=== PATIENT | female | born 1995 | race Caucasian/White ===

== ENCOUNTER 2022-11-13 20:02 | Outpatient (OUT) | payer BC, MEDICAID, SELFPAY ==
[2022-11-19 12:20] LABS: Age Gdln ACOG Testing Note (.); IGP, rfx Aptima HPV ASCU Note (.)
== END 2022-11-13 20:03 | disposition home or self-care (01) ==
PROVIDERS: PCP Nurse Practitioner Family; Visit Provider Obstetrics & Gynecology
DX: Z12.4 Encounter for screening for malignant neoplasm of cervix (principal); Z11.51 Encounter for screening for human papillomavirus (HPV)
CPT/HCPCS: G0145

== ENCOUNTER 2023-01-01 15:47 | Outpatient (OUT) | payer BC, MEDICAID, SELFPAY ==
[2023-01-03 04:07] LABS: Progesterone <0.1 ng/mL (.)
== END 2023-01-01 15:48 | disposition home or self-care (01) ==
LOC: LAB 15:52
PROVIDERS: PCP Nurse Practitioner Family; Visit Provider Obstetrics & Gynecology
DX: N97.0 Female infertility associated with anovulation (principal)
CPT/HCPCS: 36415; 84144

== ENCOUNTER 2023-02-17 15:10 | Outpatient (OUT) | payer BC, MEDICAID, SELFPAY ==
[2023-02-19 09:12] LABS: Progesterone 0.1 ng/mL (.)
== END 2023-02-17 15:11 | disposition home or self-care (01) ==
PROVIDERS: PCP Nurse Practitioner Family; Visit Provider Obstetrics & Gynecology
DX: N97.0 Female infertility associated with anovulation (principal)
CPT/HCPCS: 36415; 84144

== ENCOUNTER 2023-02-27 15:21 | Outpatient (OUT) | payer BC, MEDICAID, SELFPAY ==
[2023-02-27 15:47] LABS: Basophils Percent Auto 0.4 % (0.2-2.0); Eosinophils Absolute Auto 0.1 10^3/uL (0.0-0.7); Hematocrit 40.9 % (36.0-48.0); Hemoglobin 13.3 g/dL (12.0-16.0); Immature Granulocytes Abs Auto 0.01 10^3/uL (0.00-0.03); Immature Granulocytes Pct Auto 0.1 % (0.0-0.5); Lymphocytes Absolute Auto 2.1 10^3/uL (1.2-3.8); Lymphocytes Percent Auto 30.4 % (20.5-60.0); Mean Corpuscular HGB Conc 32.5 g/dL (29.9-35.2); Mean Corpuscular Hemoglobin 29.6 pg (26.7-34.0); Mean Corpuscular Volume 91.1 fL (81.0-99.0); Mean Platelet Volume 10.5 fL (9.5-13.5); Monocytes Absolute Auto 0.4 10^3/uL (0.3-0.8); Monocytes Percent Auto 5.1 % (1.7-12.0); Neutrophils Absolute Auto 4.3 10^3/uL (1.4-6.5); Platelet Count 243 10^3/uL (150-450); Red Blood Count 4.49 10^6/uL (4.20-5.40); Red Cell Distribution Width 11.9 % (11.0-15.0); White Blood Count 6.9 10^3/uL (4.0-11.0)
[2023-02-27 15:59] LABS: Estimated Average Glucose 97 mg/dL
[2023-02-27 16:25] LABS: HCG Quantitative <1 mIU/mL; Thyroid Stimulating Hormone 1.532 uIU/mL (0.358-3.740)
[2023-02-27 16:46] LABS: Free T4 1.02 ng/dL (0.76-1.46)
[2023-03-01 04:07] LABS: FSH 3.1 mIU/mL (.); Luteinizing Hormone(LH) 8.8 mIU/mL (.)
[2023-03-04 00:07] LABS: DHEA, Serum 193 ng/dL (31-701)
== END 2023-02-27 15:22 | disposition home or self-care (01) ==
LOC: LAB 15:22
PROVIDERS: PCP Nurse Practitioner Family; Visit Provider Obstetrics & Gynecology
DX: E28.2 Polycystic ovarian syndrome (principal)
CPT/HCPCS: 36415; 82626; 82627; 83001; 83002; 83036; 84439; 84443; 84702; 85025

== ENCOUNTER 2023-07-07 14:24 | Outpatient (OUT) | payer OTHER, SELFPAY ==
--- NOTE | 2023-07-07 14:27 | US_ITS ---
The [address] [address] Patient Name: GERTRUDE MANDEL MRN: [id number] date: 1995 Sex: F Assigned Patient Location: [place] Current Patient Location: [place] Accession/Order Number: [id number] Exam Date: 07/07/2023 14:45 Report Date: 07/07/2023 15:33 At the request of: RYAN PARSON Procedure: US pelvis w/ transvaginal EXAMINATION: US pelvis w/ transvaginal HISTORY: pelvic pain in female R10.2 COMPARISON: No relevant comparison available. FINDINGS: Transabdominal and transvaginal images The uterus is normal in size, contour and echotexture measuring 8.6 x 4.6 x 5.8 cm, anteverted. Endometrium measures 5 mm, normal. The right ovary is normal measuring 2.1 x 3.6 x 2.8 cm. Normal color Doppler flow. Multiple subcentimeter areas of anechoic echogenicity, follicles The left ovary measures 2.2 x 1.3 x 1.9 cm. Normal color Doppler flow No free fluid US/US pelvis w/ transvaginal IMPRESSION: No acute abnormality Electronically authenticated by: CARMEN HERZOG Date: 07/07/2023 15:33
--- OUTSIDE RECORDS SUMMARY | 2023-07-07 14:41 | XMS_ITS | CCD ---
Author Name Unknown Address [address] [place] [address] Organization [facility] Care Team Providers Care Pipe Fitter Name Role Phone JOSE HASSAN Unavailable Unavailable JOSE HASSAN Unavailable Unavailable POOJA JACKSONTLIZABETH Arroyo Unavailable Unavailable JOSE HASSAN Unavailable Unavailable MELISSA, AGAPITO Unavailable Unavailable FARCAMERON, LUTUL D Unavailable Unavailable JAMES JONES (PA-C) Unavailable Unavail able AGAPITO TORRES Unavailable Unavailable MELISSA AGAPITO Unavailable Unavailable AGAPITO TORRES Unavailable Unavailable Nick Ng Unavailable Amanda Mueller Unavailable Amanda Samuel Unavailable ROCHELLE Samuel Primary Care Provider MD Nick Ng Attending Provider ELYSE Mueller Attending Provider SHARON ., DR STALEY Admitting Unavailable SHARON ., DR STALEY Attending Unavailable REQUEST, NONE LISTED Primary Care Unavaila ble SHARON ., DR STALEY Consulting Unavailable SHARON ., DR STALEY Admitting Unavailable SHARON ., DR STALEY Attending Unavailable REQUEST, NONE LISTED Primary Care Unavaila ble SHARON ., DR STALEY Consulting Unavailable SHARON ., DR STALEY Admitting Unavailable SHARON ., DR STALEY Attending Unavailable REQUEST, NONE LISTED Primary Care Unavaila ble SHARON ., DR STALEY Consulting Unavailable SHARON ., DR STALEY Admitting Unavailable SHARON ., DR STALEY Attending Unavailable REQUEST, DR NONE LISTED Primary Care Unavaila ble SHARON ., DR STALEY Admitting Unavailable SHARON ., DR STALEY Attending Unavailable REQUEST, DR NONE LISTED Primary Care Unavaila ble SHARON ., DR STALEY Consulting Unavailable SHARON ., DR STALEY Admitting Unavailable SHARON ., DR STALEY Attending Unavailable REQUEST, DR NONE LISTED Primary Care Unavaila ble SHARON ., DR STALEY Consulting Unavailable AGUBOSIM, NIMESH Consulting Unavailable LONG, EDVIN Consulting Unavailable SHARON ., DR STALEY Admitting Unavailable SHARON ., DR STALEY Attending Unavailable REQUEST, DR NONE LISTED Primary Care Unavaila ble SHARON ., DR STALEY Consulting Unavailable SHARON ., DR STALEY Admitting Unavailable SHARON ., DR STALEY Attending Unavailable REQUEST, DR NONE LISTED Primary Care Unavaila ble SHARON ., DR STALEY Consulting Unavailable SHARON ., DR STALEY Admitting Unavailable SHARON ., DR STALEY Attending Unavailable REQUEST, DR NONE LISTED Primary Care Unavaila ble SHARON ., DR STALEY Consulting Unavailable MD Daric Chen Attending Provider [phone] ROCHELLE Samuelfer Primary Care Provider Spasic PA, Grupo Admitting Unavailabl e Spasic PA, Grupo Attending Unavailabl e [facility] Primary Care Unavailable Kashk, Anthony I Admitting Unavailable Kashk, Anthony I Attending Unavailable [facility] Primary Care Unavailable MD Darci Chen Attending Provider [phone] Darci Chen Unavailable ROCHELLE Samuel Attending Provider Darci Chen Attending [facility]available [facility] Unavailable Darci Chen Admitting Unavailable Darci Chen Attending Unavailable Jerricaacher, Amanda Primary Care Unavailable Darci Chen Admitting Unavailable Rohrbacher, Amanda Admitting Unavailable Rohrbacher, Amanda Primary Care Unavailable Rohrbacher, Amanda Attending Unavailable Rohrbacher, Amanda Primary Care Unavailable Darci Chen Admitting Unavailable Darci Chen Attending Unavailable BLANK, KALIE Attending Unavailable BLANK, KALIE Attending Unavailable BLANK, KALIE Attending Unavailable KALIE PARSON Attending Unavailable Allergies Allergy Classification Reported Allergen(s) Allergy Type Date of Onset Reaction(s) Facility (1 source) No Known Medication Allergies; Translations: [No Known Medication Allergies] Propensity to adverse reactions to drug (disorder) [facility] Repository (1 source) Unable to Assess Drug allergy (disorder) [address] [place] [address] Repository Medications Current Medications Medication Drug Class(es) Dates Sig (Normalized) Sig (Original) acetaminophen 325 mg oral tablet (12 sources) take 1 tablet by mouth every four hours Tylenol 325 MG 1 tablet as needed Orally every 4 hrs Active azithromycin 250 mg oral tablet (1 source) Macrolide Antimicrobial Start: 12-26-19 23 Azithromycin 250 MG 2 tablet on the first day, then 1 tablet daily for 4 days Orally Once a day for 5 day(s) Nov, Active benzonatate 200 mg oral capsule (1 source) Non-narcotic Antitussive Start: 12-26-19 take 1 capsule by mouth every eight hours Benzonatate 200 MG 1 capsule Orally Three times a day for 10 days Nov, Active ibuprofen 400 mg oral tablet (12 sources) Nonsteroidal Anti-inflammatory Drug take 1 tablet by mouth three times daily at mealtime as needed Ibuprofen 400 MG 1 tablet with food or milk as needed Orally Three times a day Active medroxyPROGESTERone acetate 10 mg oral tablet (1 source) Progestin medroxyPROGESTER one Acetate 10 MG Oral for 10 Days Active metFORMIN hydrochloride 500 mg oral tablet (3 sources) Biguanide take 1 tablet by mouth every twenty-four hours phentermine hydrochloride 37.5 mg oral tablet (2 sources) Sympathomimetic Amine Anorectic take 1 tablet by mouth once daily before breakfast Phentermine HCl 37.5 MG take 1 tablet by mouth every morning BEFORE BREAKFAST Oral for 30 Days Active Completed/Discontinued Medications Medication Drug Class(es) Dates Sig (Normalized) Sig (Original) aspirin 81 mg oral tablet (12 sources) Platelet Aggregation Inhibitor, Nonsteroidal Anti-inflammatory Drug take 1 tablet by mouth once daily Aspirin 81 81 MG 1 tablet Orally Once a day Not-Taking Problems Active Problems Problem Classification Problem Date Documented Date Episodic/Chronic Chronic obstructive pulmonary disease and bronchiectasis (1 source) Bronchitis, not specified as acute or chronic Episodic Coma; stupor; and brain damage (2 sources) Daytime somnolence; Translations: [Somnolence] Episodic Conditions associated with dizziness or vertigo (1 source) Dizziness and giddiness Episodic Disorders usually diagnosed in infancy, childhood, or adolescence (15 sources) Attention deficit hyperactivity disorder, predominantly inattentive type; Translations: [Other specified behavioral and emotional disorders with onset usually occurring in childhood and adolescence] Chronic Female infertility (5 sources) Female infertility associated with anovulation; Translations: [FE INFERTILITY ASSOC W/ANOVULATION] Onset: 05-08-2022 Chronic Fracture of lower limb (4 sources) Displaced fracture of medial condyle of right tibia, initial encounter for closed fracture; Translations: [Nondisplaced fracture of right tibial spine, initial encounter for closed fracture] Onset: 09-27-2021 Resolved: 12-06-2021 Episodic Headache; including migraine (2 sources) Headache; including migraine; Translations: [Headache, unspecified] Onset: 05-27-2023 Joint disorders and dislocations; trauma-related (1 source) Patellofemoral disorders, right knee; Translations: [Patellofemoral disorders, right knee] Onset: 10-25-2016 Chronic Menstrual disorders (1 source) Irregular menstruation, unspecified; Translations: [IRREGULAR MENSTRUATION UNSPECIFIED] Onset: 05-08-2022 Chronic Mood disorders (1 source) Mood disorders; Translations: [DEPRESSION UNSPECIFIED] Onset: 10-03-2021 Other endocrine disorders (5 sources) Polycystic ovarian syndrome; Translations: [POLYCYSTIC OVARIAN SYNDROME] Onset: 10-03-2021 Chronic Other female genital disorders (1 source) Unspecified dyspareunia; Translations: [UNSPECIFIED DYSPAREUNIA] Onset: 10-03-2021 Chronic Other nervous system disorders (2 sources) Other chronic pain; Translations: [Other chronic pain] Onset: 10-25-2016 Chronic Other nervous system disorders (15 sources) Chronic pain; Translations: [Other chronic pain] Chronic Other nutritional; endocrine; and metabolic disorders (15 sources) Body mass index 30+ - obesity; Translations: [Body mass index (BMI) 38.0-38.9, adult] Chronic Other nutritional; endocrine; and metabolic disorders (3 sources) Body mass index 40+ - severely obese; Translations: [Morbid (severe) obesity due to excess calories] Chronic Other nutritional; endocrine; and metabolic disorders (1 source) Body mass index (BMI) 40.0-44.9, adult Chronic Other and delivery including normal (4 sources) Encounter for test, result positive; Translations: [ENC TEST RESULT POSITIVE] Onset: 06-05-2022 Episodic Residual codes; unclassified (1 source) Daytime somnolence; Translations: [Other hypersomnia] Chronic Residual codes; unclassified (1 source) Sleep apnea; Translations: [Sleep apnea, unspecified] Chronic Residual codes; unclassified (2 sources) Sleep apnea, unspecified; Translations: [Sleep apnea, unspecified] Onset: 05-05-2023 Chronic Residual codes; unclassified (1 source) Other hypersomnia Chronic Residual codes; unclassified (1 source) Family history of epilepsy and other diseases of the nervous system Episodic Unclassified (1 source) Unknown / UNK(Unknown) Onset: 11-18-2016 Unclassified (1 source) CONTACT W/AND (SUSP) EXPOS COVID-19; Translations: [CONTACT W/AND (SUSP) EXPOS COVID-19] Onset: 09-14-2021 Past or Other Problems Problem Classification Problem Date Documented Date Episodic/Chronic Abdominal pain (5 sources) Pelvic and perineal pain; Translations: [PELVIC AND PERINEAL PAIN] Onset: 09-05-2021 Episodic Genitourinary symptoms and ill-defined conditions (1 source) Personal history of urinary (tract) infections; Translations: [PERS HX URINARY TRACT INFECTIONS] Onset: 10-03-2021 Episodic Immunizations and screening for infectious disease (1 source) Encounter for screening for human papillomavirus (HPV); Translations: [ENC SCREENING HUMAN PAPILLOMAVIRUS] Onset: 08-22-2021 Episodic Mood disorders (1 source) Emotional lability; Translations: [EMOTIONAL LABILITY] Onset: 10-03-2021 Episodic Other non-traumatic joint disorders (2 sources) Pain in right knee; Translations: [Pain in right knee] Onset: 10-25-2016 Episodic Other screening for suspected conditions (not mental disorders or infectious disease) (4 sources) Encounter for screening for malignant neoplasm of cervix; Translations: [ENC SCREENING MALIG NEOPLASM CERV] Onset: 08-20-2021 Episodic Unclassified (1 source) Intractable chronic migraine with aura and without status migrainosus G43.E19 Results Test Name Value Interpretation Reference Range Facility MR head/brain wo/w conon MR head/brain wo/w con [facility] [place] [address] MRI Report Signed Patient: Saima Yancey MR#: [id number] : 1995 Acct:[id number] Age/Sex: 28 / F ADM Date: 05/27/23 Loc: MR Room: Type: [facility] Attending Dr: Amanda Samuel APRN, [employer] ADMINISTRATOR-C Copies to: Amanda Samuel APRN, CNP Ordering Provider: Amanda Samuel APRN, CNP Date of Service: 05/27/23 MR/MR head/brain wo/w con: R51.9 MRI BRAIN WITHOUT AND WITH INTRAVENOUS CONTRAST CLINICAL DATA: Migraine headaches COMPARISON: None Multiecho, multiplanar imaging of the brain was performed before and after intravenous administration of 20 mL of ProHance. The ventricles are normal in size and position. There are no significant areas of abnormal signal intensity or enhancement within the supra or infratentorial brain. There is no restricted diffusion to suggest a recent ischemic event. No extra-axial collections or mass effect are seen. No midline abnormalities are noted. The imaged paranasal sinuses and mastoid air cells are clear. MR/MR head/brain wo/w con IMPRESSION: NO ACUTE INTRACRANIAL FINDINGS. Impression dictated by: Radha Mireles M.D.05/28/2023 8:59 AM Dictation Location: [place] [address] Transcribed By: [facility] 05/28/23 0859 Dictated By: Radha Mireles MD 05/28/23 0852 Signed By: 05/28/23 0859 [facility] Coding Summaryon 05-08-2023 Coding Summary HTMLBase 64 MhjksissGZh4mSi+PGhlYWQ+PE1FV MMwY97lhOGktJ7rC5TCECrCAiljMG QRDUuYGiIsqpQbXW3nzQYaZSSf IC8+QK1pECWwCujnwAPgs8C1pVY3U 56huy5cAMcmkLN6MWToCjLxjfdiy3 fdfZf6NHshTnkcJiXp JAChaM61BWF1jD22Kp25dJUbgXSmd 8itdGn7GsHfKCUuLAD3gPobXGsil2 VcPQAxZ84ljCVmo0P6 HWPiuKyksLDwNpIdeBH2gA4lWWxiu syll1zjsbytErz2ue02kJEud6L5dD J8W5VfmmE9AXJioQCh IsycqCMBcU5wsakjy0vskpreCkDeF PAsPJu8ZZu1CUPbrWdcOsTeLC54II M8BBCmrySwB6LoIDRe qDhmUjA8w1N8Bu4QT4BSWrhiT1MEC UFSWTwvdGQ+QI77pb02U1JxIxgyIk k4TFVhBOW8kQQ0aS1z ARKzZAslf8L0wDA6L7HaujDwia8kk 6fgRNKePZmoA14itMDxw1W0SAXzsH H5MPFdoCmsHjKrzK69 Oyc+TFVjkZufd1TxIhdaz8lwa3vpj Mx1HuelDAIgzuGifFumJDS3v0ZqIa 6cBQLvsCN0zBW1bU2j GlVeHcA4KQsdU874PzGfsCVfWhifM 00cV8TezNU+NBNnSkq9RVZcrMaxUJ 7wX2RrBPHerxdyrNSf fYskWM8iCSKkwgokZBDxvK6qSCGzB 6a4IqGaNjF6BBjdF5CoIICwcfvvAw 95dO0xOoPjAeX4IOyi J2CdmcY8HIIdhVQsYRfkUAO1L04db 1G1NODrHOZfPWN2mBN7eU5neTroft ogbGVmdDsgdmVydGlj HOenBDqyH575CNNcmTrlWwKnMEtvM yBEYXRlOiAgMDEvMTEvMjAyNDwvdG Q+JWRlIDI1gZupVFYc bWZsSXhsBp2esKelmPpsYR2nBPEae qhbIFTdeD2nGYWftHGisDkbYX1wAF Ynujhjd854ZlQcYMH6 YUFvgMJaL9LsmF8xPtSpOYUsCTOeF 4NobOSxHHhwU930DOhvEzX6RKWomq UoR7ZwYDNlmQcmVjM3 m5P8Nd3Uu5EdppdpV3OgnMBqKlTaJ coaPUg1F6IhTktsyXV+FR31PTTrFM 01EWx3LDC3kJunBZdm CRAhY7AevG9iMpCiCOYhZHTiAtb+P HRhYmxlIHdpZHRoPScxMDAlJyBzdH twUQ6aDo4zDJNsJMXk rVbpwZXoGgJkk3asNGEeFLwkDW6qv CnzP5FtlJE6YHKvf6v8Up12C85sO1 JvdXA+BVYbpNA6yHW8 wV9xUpOvEwD6ORcbW945BvRcsGDwX bxfe7vcu2kaoBz6NoY8INCdnvWoyE akDSK7f0SjEm31O78c JNsuNFXuTSSdUGKcZIGxkQesqg6pj G9wIi8+FAEvzJH3eTZ5uB4hJaPnPx O6TFuaW739TuBijLBa Aoqwf2cxo1sibYh5XdHvDRGclhAds EegPXH6n4SsXb84G5ZgmJtgp4RfEs k0gj91nWBwd5P2ySS0 I3EvEDMrssbzzWBulMcbZJ4jIRZha mlmBFOmgH9gBQWlV3g0LfWmLaA9OD mtZ5KevaS7KWXjjXUl DXRhdGAQcT9fursak9jztwtzQiWzK UVvMBk9DWt6VQAftTklUgZgFNR2Xv S4BZR8nTVasS6grAgl suvphN8xRxw+LAL7fUTmvACSTU9yJ jwvdGQ+TAAmDUI9jRjgZCsbDXBsqT 6gPXJlI3s7NjOyQfS0 MBzyR2HhbfU6NVKxiVJrMVQdcYNSs Q0mbdbnn3sukuveDnBuSMZaLEt5AS d3XOTdyNluQfDjPRP8 MyT4CXQ9hHJawE7qtFtactxqmD3pG yc+ZxzneKdzJLS5IDg8U2QiSai2GO DdmTofJZ4ucWUhBPfb Xa2ucLnzvObeMG2eCMFmqiyvi381X fIot7owIIOyqDBrNNjiENP4A58mv4 B0HESpXIPoEZP0yTX0 sW7nnUpuuupdsMYffHnqshHjzItqX HkzIIkxY712TGDmbKxwPsIyMEg9U6 MrSqi2WZNxgZhhIR3s hXFfMOgtOn1alHmhoFquJW1pCDBem eier534QuInh5lbWBAkyYCjTLhxYS D1R43pb9Z1WQPrRIHv IYM0cCE9gI2xbWlflnaqsPGogWypx rCllQuwLXtmFWphP505KPVwyYwbBm FleYk2I7CiHfv7GKOa sCteTD7vmOArWQobTf2lfJyujSepV J5pMQKowyxuj890GbIvg1daFZOdzO WvFIfbYPY9B89tw0I1 VSVlNBPpPTZ7nZL5hQ3saGnonzosk YVfxVmmvuVtlAynKJacHPnkT145FH RvcDsnPlBhdGllbnQg FPymSKb9H9JzTkrhoCM+BX69WXRbI G48yCBtbALjc5lsdUe4XyRhGLCxGF I3vNasXJzmj3QvNEGu Z11hoVDtw2C9ETRkgZrsfWFuObQkz MX1mG8eOXtxqzncn8svsrnmHigek7 xgfj97yU63F26mICfh RCCwZXMcJDGxNLDnoSwcgc3oyG3rD i8+CUGcxHT7bMG6yF0qKKPeZpG5NK lvK004BkKnnVTxRtgg v6bqg7ghsGy8JqL5PJPuceLtxBpgJ MS8q5HhFp42S71lOBtjAKBcNNVoXV OdOJMdpPczrg9szN3y Ii8+VNDhfLU1jAM1gU5eNzFdStX9G RhuD051VdTefEIvUzqpO99kZ6EcuX A+HAJyNgi9CSXrbJba VA1toYJpSPbbOl3zMHO3KzFtFiLeD DixE4BiWLMrezntbvorjOZ9YRFbDH BzhD36Co5pjVwuCRXl pWGEoM5vtdjxh8alskezMmFhOHBiX Qg7IWm9IRJwhWtfEnIcRCW3EdM6QZ L0uFFecM5jcCdfzvbb tI6sU4TiJRXlpxctHd43nF6xLjLkG oF2DRbvZwh+LHIOQIABFdbyV7vNFQ XSMPjHSy71R2ZgKcs8 CBBwrPyiGB9iaAXzPBcuUh2bgQftf FueXM9hTALxbizyPFExwD4sKXSvvM MecXbdPP7vFNUrhpij x875ZfRgNMT4VQNkcMWtS8MufH5lS xLcUDByKLVbF8UueGHyKFbzV058WD jkVmC8MIIfdxZaE6Xr OZAhxTqnDhJ4e8Y9Ap3gMy4fWf8tF Pe6WF60TS01vUFbn0Z0yBL4S1GqID PciehwgrkybNZ2PYPy JCPmfS16wYWgDVxaZd2hl5U6n458T WIqMQLvyS96Xk4wxHmtVDTddOKCcI 4mdaomn2nmomanKyZy YMGuRFk0VPe1QIGcgNpuWoDeKXO0D pH7LJW5wXJzgI9ctPguftchaB0aOz c+NlXuIYEzgaH5E9Sg Ogo2IGMxePzsOG6zuBBkEPulKc7sv QtezFtnKS5mHTZkoxotHRRzhK3bEL UkcPJjdTbeFX8zKULk zjpje776HwLyRWP0EKRxcRVpE5Bhg G2wTyDfYBSrBXWtB6RkvRWqEIbmH4 56EFzqVzN7XVTvslPu N6VzRZKcsIkxPsT0h9P2Fg2XVM1ZJ RF0W3SjZhq2RBBoqXtyZB3htPIdSJ olWc8ijUzyfEkkZL1o YGXwmqsrNKGdwY4bLVIorVTdxTlsA Z5dWLLbtidaz907DaKwXIJ1HORllV EcZ8ZacV6lZhNlFCUq KJZnS8ToiEIsMZxoX511HZciYkF9N IVyziFiB0UaWEPpoCmhRcQ1t5K8Mk 7KsVJmR5CcB2u9J2Dh PjwvdHI+WO02IYGxLH37uAWkyRJbv 7ltdLn6HhMxZJYyORM4uWayWQqje8 PbWXIoX13moRXoa0I6 RSRmmPcatEHcFvWhfZM6aG7aAQkhc hjcw6otmhjoGrmby7melk64sI90E2 9sIHdpZHRoPSIzMCUi SKWbvZfmjg6ftV9fJp8+FARzsLJ7u ZY3sJ7oIwFoIgS7GUirQ981EkWpoL TtOqjcp4llb1oebRx2 IwTpZSZtgsNfpUzdTAH0j4FaDr23R 29sIHdpZHRoPSIyMCUiIHZhbGlnbj 0bwF7dEv5+ZU7fr6fd wy98qC47cSI+TUGzYLF1wWxbXNreA AFxoL7gRWtwOwT3GBSnCgDpvC67rY XvRAjvKj6hxEucaFdr LX6wUREdzeycw160ZqAxf9mwTGJal DNlNBchWAE1W04td0R6WNCzJMZvXZ D1rMG0gU1nqSlhttgq uVTreOvrueZftFnbYUazUCrsL728Y JFehOntByTmjQBhL2suvbZZLT8xAj wvdGQ+AUMmFBK0fMhr RTijSMVylB4pTCEyQ2h4VaBuCxC1F EayX7EtzgK9BFRrsMUrYQBoeSUDeK 8qyflkd9xlbvlcIgQq ENHwBEa4EQz3CUNqxPhvOyNhJWL6W eQ1XPX2mJPfpQ8ysMhoynrjkX8fQd c+RklOOjwvdGQ+PHRk TXI1pFqcJJdnRCEpeJ6eHEScK3r3J cGhJyG2CDjcR2OswyD7FFUhmRUiUM UnzHRBfA7xsufuy3em cccgFiDgTUDaINc2YNx3BFZyaSbwC xIpQAQ4IgI6ZNH5eFZanS1zpJuvhb aekL7xYzs+TVJOOjwv dGQ+WWYdNSR3iYbcWIziHMJdkM2dD KDjD7v7DoFvXbK1SFdqY9SvavC9FQ CkqESeQWKhhKRIrQ2f idjrq3sgalcjErBnJIFwPOh2TRz4J GGzhZxtGbJlHHZ0IeM5JSS4oZTcnC 9alHeyczcdqC6kAki+ DIW6TSX2OP00OE33Z9QxIcddzYDxo +PHRhYmxlIHdpZHRoPScxMDAlJy TibDpaNW0eEd3nTOEn LWN (more content not included)... [facility] Electronic Messagingon 04-27 Electronic Messaging --- --- --- --- --- --- --- --- --- From: Nabil ([email or web address])Nabil To: SAIMA YANCEY Sent: 04/27/23 05:06:20 AM EST Subject: Discharge Summary Ready to View A summary regarding your recent visit is available in the Documents section of your Health Record. [facility] ED Clinical Summaryon [address] [facility] Emergency Department [address] [place] [id number] ED Clinical Summary PERSON INFORMATION Name: SAIMA YANCEY Age: 28 Years Sex: FEMALE : 1995 MRN: Acct#: Visit Reason: Headache; HEADACHE, NECK PAIN Arrival: 04/26/2023 07:37:50 Discharge: 04/26/2023 09:32:00 LOS: 000 01:55 Check In: 04/26/2023 07:37:50 Checkout:04/26/2023 09:32:00 Address: [address] [place] [id number] PCP: Amanda Samuel CNP PROVIDER INFORMATION Provider Role Assigned Unassigned Virgie Palafox RN ED Nurse 04/26/2023 07:39:31 Anthony Rios MD ED Provider 04/26/2023 08:50:24 VITALS INFORMATION Vital Sign Triage Latest Temperature Tympanic Temperature Temporal Artery 36.4 DegC Pulse Rate 107 bpm 107 bpm O2 Sat 99 % 99 % Respiratory Rate 18 br/min 18 br/min Blood Pressure /83 mmHg /83 mmHg MEDICAL INFORMATION Medications Given: Medication Dose Route ondansetron 4 mg IV Push dexAMETHasone 10 mg IV Push Sodium Chloride 0.9% intravenous solution 1,000 mL 1000 mL Initial Volume 999 mL/hr IV Right Mid Forearm ketorolac 30 mg IV Push diphenhydrAMINE 25 mg IV Push Allergy Information: No Known Medication Allergies PHYSICIAN DOCUMENTATION DISCHARGE INFORMATION: Discharge Disposition: Home Discharge Location: Home PATIENT EDUCATION INFORMATION Instructions: Migraine Headache Follow-Up: With: Address: When: Amanda Samuel [address] [place], [place] [id number] Business (1) Within 3 to 5 days Comments: Call for follow up appointment DIAGNOSIS: Migraine Patient Understands: Yes - Patient/family/caregiver verbalizes understanding of instructions given Comment: [facility] ED Note-Nursingon 04-26-2023 ED Note-Nursing Patient arrives with c/o headache that started around 1700 yesterday. Pain rated 6/10. Patient last took ibuprofen 2 hrs prior to arrival. States nausea and eye pressure. States she started Addipex 3 weeks ago no other medical hx. [facility] ED Patient Summaryon [address] [facility] Emergency Department [address] [place] [address] PATIENT DISCHARGE INSTRUCTIONS Patient Information Name: SAIMA YANCEY Age: 28 Years Date of : 1995 Reason For Visit: Headache; HEADACHE, NECK PAIN Arrival Time: 04/26/2023 07:37:50 Primary Care Physician: Amanda Samuel CNP Attending Physician: Anthony Rios MD Comment: Visit Diagnosis: Diagnoses This Visit Headache ([id number]) Migraine (G43.909) The Pharmacy at [facility] is open Friday through Friday from 9A to 6P and Friday and Friday from 9A to 5P Prescription Information: If you have been given a prescription for narcotics, seek immediate medical attention if you have any difficulty breathing or any sudden status changes such as confusion and sleepiness. If you or anyone you know is experiencing suicidal thoughts, mental health, alcohol and/or drug addiction problems; contact the [facility] 18/11 Crisis Hotline -Text 0LSCH cq 394149. If you received any narcotics, sedation, or any other medication that causes drowsiness for the next 24 hours, unless otherwise directed: ? Do not drive a car. ? Do not operate machinery such as power tools, lawn mowers, drills, sewing machines, or stoves ? Avoid alcoholic beverages and drugs for allergies, nerves, or sleep ? Do not make important personal or business decisions or sign any legal documents With: Address: When: Amanda Samuel [address] [place] [phone] Business (1) Within 3 to 5 days Comments: Call for follow up appointment Medication Information: The exam and treatment you received today in the [facility] Emergency Department were for an urgent problem and are not intended as complete care. It is important for you to follow up with a doctor, nurse practitioner, or physician?s assistant editor for ongoing care. If your symptoms become worse or you do not improve as expected and you are unable to reach your usual health care provider, you should return to the Emergency Department, we are available 24 hours a day. For those patients who have received Radiology results, the interpretation of your X-ray as given to you by our Emergency Department physician is only a preliminary report. The Radiologist will review your films and if there is a change in the diagnosis you will be notified by phone. Please make sure you have provided a working phone number so we can reach you if necessary. In the event that you had a lab culture while you were a patient in the Emergency Department, you will be notified by phone if there is a need to change your antibiotic. Please make sure you have provided a working phone number so we can reach you if necessary. [facility] Emergency Department has provided you with a complete list of medications post discharge. Please inform your primary class teacher/provider of your visit and for further instruction on these medications. Any specific questions regarding your chronic medications and dosages should be discussed with your primary care physician(s) and/or pharmacist. Additional medications on your home medication list not specifically addressed. Please contact the ordering physician if you have questions about these medications. phentermine (phentermine 37.5 mg oral tablet) Visit Information Allergies: Substance Reaction Symptoms Type Comments No Known Medication Allergies Drug Vital Signs: Vitals and Measurements this Visit (last charted value for your 04/26/2023 visit) Vital Signs This Visit Temperature Temporal Artery: 36.4 DegC Peripheral Pulse Rate: 107 bpm Respiratory Rate: 18 br/min Systolic Blood Pressure: 133 mmHg Diastolic Blood Pressure: 83 mmHg SpO2: 99 % Oxygen Therapy: Room air Measurements This Visit Height/Length Estimated: 175.26 cm Weight Estimated: 72.57 kg Body Mass Index Estimated: 23.63 kg/m2 Problems List: Problem Onset Comments Cough Viral illness Patient Education Migraine Headache A migraine headache is an intense, throbbing pain on one side or both sides of the head. Migraine headaches may also cause other symptoms, such as nausea, vomiting, and sensitivity to light and noise. A migraine headache can last from 4 hours to 3 days. Talk with your doctor about what things may bring on (trigger) your migraine headaches. What are the causes? The exact cause of this condition is not known. However, a migraine may be caused when nerves in the brain become irritated and release chemicals that cause inflammation of blood vessels. This inflammation causes pain. This condition may be triggered or caused by: ? Drinking alcohol. ? Smoking. ? Taking medicines, such as: ? Medicine used to treat chest pain (nitroglycerin). ? control pills. ? Estrogen. ? Certain blood pressure medicines. ? Eating or (more content not included)... Normal [facility] PROGESTERONEon 07-17-2022 Progesterone <0.1 Normal [place] [facility] Comment on above: Result Comment: Foll icular phase 0.1 - 0.9 Luteal phase 1.8 - 23.9 Ovulation phase 0.1 - 12.0 First trimester 11.0 - 44.3 Second trimester 25.4 - 83.3 Third trimester 58.7 - 214.0 Postmenopausal 0.0 - 0.1 Performed By: #### P BUDES #### [facility] [address] [place] [address] Dr. Aaron Flores PREG QUANT HCGon 07-15-2022 HCG QUANT <1 Normal [facility] Comment on above: Performed By: #### P REGQNT #### [facility] [address] [place] [address] Dr. Aaron Flores HCG RANGE SEE BELOW [facility] Comment on above: Result Comment: 5-50 0.2-1 WEEK 50-500 1-2 WEEKS 100-5,000 2-3 WEEKS 500-10,000 3-4 WEEKS 1,000-50,000 4-5 WEEKS 10,000-100,000 5-6 WEEKS 15,000-200,000 6-8 WEEKS 10,000-100,000 2-3 MONTHS Performed By: #### P REGQNT #### [facility] [address] [place] [address] Dr. Aaron Flores Coding Summaryon 06-10-2022 Coding Summary HTMLBase 64 HyvqmpwxIQe6mIq+PGhlYWQ+PE1FV XUaN64snISenJ6YG0rQKR3THRQFTW NMHE2PMT6caAX5VKnmN8YwcnCb WmmxdGDeAS23YHk5CBF2bMauGHwzb T3ogQOxJ7d2TxKoMB88xH17RYxdAJ KkLnW9YaXtjzyijNMc P8zoHzOlrUZfUax+PHRhYmxlIHdpZ PTePTneCIAdSkParXqyVI7uRp9aCM VyLWNvbGxhcHNlOiBj k0afKVRpBAvkMN0sjJuzU4AslKK0D KUyl1g4Im35cRN+DCEzCXP5iNqeJN sic006AvGdy5ssBJT1 lWDoTVvlYWN5B93jv7Q3HHOlIIToH EW4eHU0oR9cfYinomfpP8RjxGLuRa H7FJJ8rHUqvP9xdQjk ehoshC8lKpg+T34VMF6TZBASID8ZL sd5C3InVjbfoWG+XZ68ESObWL26jB ResPUcl6uokKg2UdPl XTNoNGZ4oBvuKBhku0QxPIYfO06ok MRbn9T2LSYecOgcyALnAoGdyPX5sF 4eDQhwhyjix8ceqvwl Shejk8zfev69sD89G12vSJdlHWGrK QA4MEJkOHVbqTcflu1mpM4bXa4+ID luv4muy4ortNm6LrLz FMAgqxEagDsiJRM2t4XcMn71G9Vzg Qxql6UeSja2rf47zWEiy4K0xRR0ZZ xhGOXgeY0yHUcuRfB7 VVOdVuFhfO96wMFxSCywMd3hsCciz JodNP9aHLLpdcyyINZrqE1mFLXuqQ DqqNttZW2rISTjigkb l567HwTtAUF1HWZivNAtB3QzjD8iS zIvDHXqMEEvB8OdtQFmTFxsW274CW hhDxY2SKVlsoKgQ7Ra LAQbuHqmBvU7c0C2Ck9Ge2GfvnnvZ IE5THseZRRjEtMjMpNuToQ2P4ZsGn m7DAIazEbiDT9vE8Tb PGYzmokwiddrpYB8VCCbROUutU93q KIyZLtvZb6vz1T1b087QAScGSYmjU 39Fw5frYlqODLndLQA eK9lejxrs1fmdcmjWlIcHGAnFUe0P Yl8LXDspVzbBuBzRJD4KrO6JHO3xU NtoZ7dlZutqujflL5x Oyc+E95yrC4mARQ2BOQ6kpspHXRsk fOvHO35VM75X0PkKoulwUIakWE+PG YkubPhqFnjHY4cXlBr v7tsa7IfFQnyE9XpYSZkPAqxCoq0H DXxFTJ5mXD6iT1oTUEmGEtie8R2fA K6P7OitgPfqk9zi7hu IHYsEUarD02fpWWjk7J9PPSteIH9R YRpkToaHnQhaJ87Slv+PGNvbGdyb3 VtMggjh4qpz5rlsIc0 AyUiMGPwtyXpxNcrNFR2l5KcAf38F 29sIHdpZHRoPSIxNSUiIHZhbGlnbj 1fvD4mTu0+PGNvbCB3 jZY8fY0lIRIvFxH3GTfkF770IfPfa AThMdngy5mau9zklZl0FoNqXRXogz PkvEfoSQN9o6XgVr20 G49rPLmjKQUuRWUwTWApIIMesInuo a9dvX9lYe7+NX3dk7jlau63qL01fG I+OJDtUWF3vIszLLgu IITkvW9rDMmfQfH2QVLrHvRfvJ09u GSbPSuzWe7bnSxysRzsCI8cKHHzql nfx905IeMgb2pzRPOl lXWjRVzhCRN3I19th3B9PKKxPPEbG KM9mQF8sP7kwKjuthrzbDYaoGjold DxeRphIJreTEviV863 ZNOcuVkjStTnwXncozMiUwZtTUa9F 0LxCxz8QVWmqBxaSB6qsSIcWCvhMr 9gdZdioBaiEX5tEOLn rggkl446MoQao3zjBPAwwQKxGAppM NS6X78wp5W0CEThIOHiTXQ1uZT1mO 1hbGlnbjogbGVmdDsg wuVdiIsuDOzhXIsiN674BIOqiHxpT dWhtcKiENFwgLL4FT67ZX71nNKyv0 N1sPN8E0GeCFDwlbcc kleffEE8SAFyNSEwhC84Lj5ktSukQ u8lEGYbMJF9UYLffJZhX6AlhL1jUm NbZIOpMZOjV4PexFCi RVjfX684YDerPoH0JDQaayCkP3XiN GUwaDfwRvJ3f6D1Gi3ET1Z5AI77NF 56gQSlh0T6aBE5N5Jo GXGxueydkztgjDL4ZUXcOMOccW60F g5lzQirQr3pWBRlXGX3YQXsbLYlP6 EgiW2lBxLhMFLgGUQr N8HswDByPEadN792OTlrMxY2DHEpx jXsU2UpHSWvjJvmSrI2c1D1Zi1SFV h0WV03PD63mIUdm9A2 xYD5W0VtDTKyvvrybnaaeBU9EXAoT CQttZ15Vc3ezGvqGo0fBUVfDQA7PC FknEPlN7BcwQ2kUzJj LLNwFDYvX7SazSHsMJtwM770KIykS gU3AGFjmwUwT7StQQCsxPyqGbD9g6 X4Hs4ENFUsTP88RHO6 yYB7OR18NU20B1VfDrztyQItoNR+P HRhYmxlIHdpZHRoPScxMDAlJyBzdH qwBQ0aPi4lHZVaWATo jWngmKIeOqWvt4hmMKFvWNppOH8tm KovE3WyjEJ8BQEcf7x0Nh72D03hA9 JvdXA+VBFayCW6bND2 yC7eUdSyCkD1XJnzD928LyIxqEBzY oxlz8tmd0ubhWh2FmC0ALUebdNrlU fxSPB3n0XoBe88M07i XOghAZYkWVSxKKYbCIIpaXurde4yj G9wIi8+CPWfiUS9iNU8vP4lPsJuVd L8LFqfM552AdFsiNZw Zmdbc1bar2tvbXp4BbBhKHYmmiNvc DgeIHB8w8BuIp91O1BktYjde1UrFc f7do02vSVpw6Y8iXC3 O1ArLOXeklsboXEoxLqpWF5hTHFas awzIWQahA6tCPXkN8d3DfNxLhQ9HP zbH0KteoR2NRTejCMi FSmvNUG9M77vy2X9OAYuDGCdAQI3f EH1oT7fpYpznaujpIUmtSnpjzUauL ipJDebXTxjI386FTYt uPlzTAYcmK5uTNJdlMEhsBgiBS7jR UWwtdnxHvZYY2FGKOWnGDWJZPaDMK KYRS0SKZ09IW23hSOh v6E2tBC4R8RjMYZuqbbbuvjdgCO1U ZYuTJMvpM39jSAoQWbqEu7fp2X4g0 77BOPyQBZkyA48Cb1r qVqaQZNmfDWZgK7mnzcvz4zsnvfaD kCcMXWrSZr1KHy7CZFgsYpsBpYgGY O4DfV2ZOO9cRXehL8m xOfhyupfhQ7sRjt+TOYvIQQpZGw0K zwvdGQ+WHFyVMT7ePwaLBwlMYVuxT 9jKPRlQ5b6WwYeChL1 ZSscA3OcOBOdjuvnQa14mH8nXhNmI hM2MHupZ3XlbmR1HUZfxHPsERimGZ Z8P80if2P2RCHwPIJj PNR8yAR6mY5zbLrimvzanIOfiJckf zYmiUmnNDhcZBelK061WWJnlRkuAx O6EHkfNWZnPO69KC57 aYHdi7M8gLT1J2HuDDNmumnduvafn LN3BSOzUJYpjL74bNMdKDldZp8xa2 A5j948QMEuCASvhI80 Eq8kjOxvKGHscQXSkU8fnlpka4yxa jmfYcEuSDBxRNp5ZFc3ZBPreUbhLe FqUNX0VaY2WQI0eCVo qI3iiGnxmbjaoQ9xBol+RkVNQUxFP O24TV33eFThl2P0pHN4P5OdZTJrnk lshlesjWS0ACIsGJGu zH44fKTsTYuqVv2uk1M8v848KDVdV VBfnN01Tq6khCumUUUzeLDRiW1vgk rgo1dxycxoCqNbYJLp HJu0ORn1BLQcwCxhQhXdLBS8HpT7G GX5nWKgsQ3xsNunvkqqlS2kTmk+T1 E6K2QqRtfrtSG+PC90 GDKeAM82qTNmzHWom7yxcBk3GtTxX VXsTTF7bGmlFHeyk8QvWQKaO59kcQ Lmf0Q2UKPvlIwufDGg FaKxuYX4cH3uHDmvdqzdt2glvnxaC moeu7xtat40oC76C37aCGqcYWXxIS EaRXRbQIVjySxmfv8a gD2wEp3+ASFmdYW3iKZ3kZ4dVwClE iE0XDvkM956QtOavXTpKqxnt6bwr7 umdQk8JgVfJFVodnBt oZluBOO4g8JpWv01A66fFExiGZMbD WGaRIMzPNRbmOpsnp4lqJ7aWp3+PC 8zs3fepk29zN94aQU+ EXXiXCY5yTzjHGnzTIJmpS5iIRbaU qZ5FYDrLmTmgM60iJIkNKotSa3tzO vlwFjmKL1zGGFwlamw w152YtOse2bhSYMykTBtBKsmNPB3U 03qz3Q4ZCTsHUXfQYM8fRU2qZ6deU lnbjogbGVmdDsgdmVy qTqcIRfpWYzuV473LMAwaEwrSyEsr LYpE1uxhfTPGP2dExhnyBS+PHRkIH P9kWpsXLamGSXdaI5q OVGxB8p1OtFkVuO2JRgbE7NrvvW2C LWtzFRrLQVejEXLdR0cqvjds8iajt jmGnOtHYOlEZv6XXn1 UTUgrPiqOaNzFZC1IwY6LWD9pGDbx M1ocZvbsygmcP1pImd+RklOOjwvdG Q+YNDaLIP5wYkyHEoi SPYrjG0rVCHfK8a9OhEuDcV2MNlvQ 3FjkdP2QCShdSAwWKWlkGBGyS5tnw bhr3cocjvrZkUrBCYi VHz5WSd3HDBxtVnxUiBsKRS5IjN1P NO3gGEanO4weRvzkqhqoN5tMtq+TV JOOjwvdGQ+PHRkIHN0 zPmzBBdyUKTwlD1gUFXsX9q2WuFzT cY8YOpkI2YnfkV7TPClkNZbRRVyfV QNfQ4zpnwti5meothh LyVgAOElXUc9MMp1JZBcmCzxPeDmF UH6TnA0DYB8bNLqaJ2doRbkqxinmH 9wOyc+UOI9ZDP3RY20 VV24A4CgVfwpyECbdSO+PHRhYmxlI IrmNJMcJWvkOXRlKwAtzSlfVG2qGb 9yZGVyLWNvbGxhcHNl OiB (more content not included)... Normal [facility] C Throaton 06-08-2022 C Throat Ordered by Discern. Normal throat zakiya isolated No pathogens isolated Normal [facility] Comment on above: Performed By: #### [id number] #### [facility] (DEFAULT) [address] [place] [address] ED Clinical Summaryon [address] [facility] ? Urgent Care [address] [place] [address] Clinical Summary PERSON INFORMATION Name: SAIMA YANCEY Age: 27 Years Sex: FEMALE : 1995 MRN: Acct#: Visit Reason: Throat pain; UC - Ear Problem; SORE THROAT Arrival: 06/06/2022 16:43:19 Discharge: 06/06/2022 17:26:00 LOS: 000 00:43 Check In: 06/06/2022 16:43:19 Checkout: 06/06/2022 17:26:00 Address: [address] [place] [address] PCP: Amanda Samuel CNP PROVIDER INFORMATION Provider Role Assigned Unassigned [employer] ED PA 06/06/2022 16:54:23 Samantha Mg CLERICAL RECEPTIONIST Nurse 06/06/2022 17:01:03 VITALS INFORMATION Vital Sign Triage Latest Temperature Tympanic Temperature Temporal Artery Pulse Rate O2 Sat 95 % 95 % Respiratory Rate Blood Pressure /80 mmHg /80 mmHg MEDICAL INFORMATION Medications Given: Allergy Information: No Known Medication Allergies PHYSICIAN DOCUMENTATION DISCHARGE INFORMATION: Discharge Disposition: Home Discharge Location: Home PATIENT EDUCATION INFORMATION Instructions: Sore Throat, Vysk-xc-Cdks Revised (MHASPASIC); Otitis Media, Adult, Itbq-kw-Zfoo Follow-Up: With: Address: When: Amanda Samuel [address] [place], [place] [id number] Business (1) Comments: Begin on the amoxicillin, take every 12 hours for the next 10 days Alternate tylenol and motrin for any pain or fevers Stay hydrated, drink plenty of fluids Follow-up with your primary care physician in 3-5 days for reevaluation, sooner if any worsening symptoms DIAGNOSIS: Right otitis media; Sore throat Patient Understands: Yes - Patient/family/caregiver verbalizes understanding of instructions given Comment: Normal [facility] ED Patient Summaryon [address] [facility] ? Urgent Care [address] [place] [address] PATIENT DISCHARGE INSTRUCTIONS Patient Information Name: SAIMA YANCEY Age: 27 Years Date of : 1995 Reason For Visit: Throat pain; UC - Ear Problem; SORE THROAT Arrival Time: 06/06/2022 16:43:19 Primary Care Physician: Amanda Samuel CNP Attending Physician: [employer] Mcnamara Comment: Patient Education With: Address: When: Amanda Samuel [address] [place] [address] [employer] (1) Comments: Begin on the amoxicillin, take every 12 hours for the next 10 days Alternate tylenol and motrin for any pain or fevers Stay hydrated, drink plenty of fluids Follow-up with your primary care physician in 3-5 days for reevaluation, sooner if any worsening symptoms Sore Throat When you have a sore throat, your throat may: ? Hurt. ? Burn. ? Feel irritated. ? Feel scratchy. Many things can cause a sore throat, including: ? A viral infection. ? A bacterial infection ? Allergies. ? Dryness in the air. ? Smoke or pollution. ? Gastroesophageal reflux disease (GERD). A sore throat can be the first sign of another sickness. It can happen with other problems, like coughing or a fever. Most sore throats go away without treatment. Follow these instructions at home: ? Take usik-kfs-tqdvkcf medicines only as told by your doctor. ? Drink enough fluids to keep your pee (urine) clear or pale yellow. ? Rest when you feel you need to. ? To help with pain, try: ? Sipping warm liquids, such as broth, herbal tea, or warm water. ? Eating or drinking cold or frozen liquids, such as frozen ice pops. ? Gargling with a salt-water mixture 3?4 times a day or as needed. To make a salt-water mixture, add ??1 tsp of salt in 1 cup of warm water. Mix it until you cannot see the salt anymore. ? Sucking on hard candy or throat lozenges. ? Putting a cool-mist humidifier in your bedroom at night. ? Sitting in the bathroom with the door closed for 5?10 minutes while you run hot water in the shower. ? Do not use any tobacco products, such as cigarettes, chewing tobacco, and e-cigarettes. If you need help quitting, ask your doctor. Contact a doctor if: ? You have a fever for more than 2?3 days. ? You keep having symptoms for more than 2?3 days. ? Your throat does not get better in 7 days. ? You have a fever and your symptoms suddenly get worse. Get help right away if: ? You have trouble breathing. ? You cannot swallow fluids, soft foods, or your saliva. ? You have swelling in your throat or neck that gets worse. ? You keep feeling like you are going to throw up (vomit). ? You keep throwing up. This information is not intended to replace advice given to you by your health care provider. Make sure you discuss any questions you have with your health care provider. Document Released: 01/21/2009 Document Revised: 12/08/2016 Document Reviewed: 02/02/2016 [employer] Patient Education ? 2019 [employer] Otitis Media, Adult Otitis media is a condition in which the middle ear is red and swollen (inflamed) and full of fluid. The middle ear is the part of the ear that contains bones for hearing as well as air that helps send sounds to the brain. The condition usually goes away on its own. What are the causes? This condition is caused by a blockage in the eustachian tube. This tube connects the middle ear to the back of the nose. It normally allows air into the middle ear. The blockage is caused by fluid or swelling. Problems that can cause blockage include: ? A cold or infection that affects the nose, mouth, or throat. ? Allergies. ? An irritant, such as tobacco smoke. ? Adenoids that have become large. The adenoids are soft tissue located in the back of the throat, behind the nose and the roof of the mouth. ? Growth or swelling in the upper part of the throat, just behind the nose (nasopharynx). ? Damage to the ear caused by a change in pressure. This is called barotrauma. What increases the risk? You are more likely to develop this condition if you: ? Smoke or are exposed to tobacco smoke. ? Have an opening in the roof of your mouth (cleft palate). ? Have acid reflux. ? Have problems in your body's defense system (immune system). What are the signs or symptoms? Symptoms of this condition include: ? Ear pain. ? Fever. ? Problems with hearing. ? Being tired. ? Fluid leaking from the ear. ? Ringing in the ear. How is this treated? This condition can go away on its own within 3?5 days. But if the condition is caused by germs (bacteria) and does not go away on its own, or if it keeps coming back, your doctor may: ? Give you antibiotic medicines. ? Give you medicines for pain. Follow these instructions at home: ? Take over- (more content not included)... Normal [facility] Strep Aon 06-06-2022 Strep procedure control Pass Normal [facility] Comment on above: Performed By: #### [id number] #### [facility] (DEFAULT) [address] [place] [id number] Streptococcus A Negative Normal Negative [facility] Comment on above: Performed By: #### [id number] #### [facility] (DEFAULT) [address] [place] [id number] Urgent Care Note- Provideron 06-06-2022 Urgent Care Note- Provider Patient: SAIMA YANCEY Age: 27 years Sex: FEMALE : 1995 Associated Diagnoses: Right otitis media; Sore throat Author: [employer] Mcnamara Basic Information Time seen: Date & time 06/06/2022 16:56:00. History source: Patient. History limitation: None. Additional information: Chief Complaint from Nursing Triage Note : Chief Complaint 06/06/2022 16:53 EST Chief Complaint sore thoat for a week. 06/07 now. throat is red. hursts when she swallows . History of Present Illness Patient is a 27-year-old female complaint of right ear pain and sore throat. States the pain in the throat began a week ago. Right ear for the last couple days. Denies pain in the left ear. Denies any sore throat. No other complaints or concerns. Patient with no known medication allergies. ROS Constitutional negative ENMT negative Resp negative Additional negative Physical exam General - alert no acute distress Skin - warm dry Head -normocephalic atraumatic Eye - normal conjunctiva ENMT - right TM bulging and erythematous, left TM pearly candelaria white Neck - supple Cardiovascular - regular rate regular rhythm, no murmur, normal peripheral perfusion Respiratory - lungs clear to auscultation, nonlabored respirations, breath sounds equal Lymphatics - no lymphadenopathy Medical decision making Diff OM, OE, swimmer's ear, foreign body, impaction, upper respiratory infection, tinnitus, mastoiditis, viral syndrome Physical exam findings consistent with right otitis media and sore throat. Rapid strep was negative. Patient will be treated with amoxicillin and prednisone. Follow-up with primary care provider in 3-5 days sooner if worse. Health Status Allergies: Allergic Reactions (Selected) No Known Medication Allergies. Past Medical/ Family/ Social History Medical history: Resolved Disease caused by 2019 novel coronavirus ([id number]): Onset on 05/03/2021 at 26 years. Resolved. Comments: 05/03/2021 [employer]PERATIONS 18:07 [employer] - SYSTEM Problem added by Rule (IC_COVID19_AUTO_PROBLEM) following 2019 Novel Coronavirus (CoVID-19), ROBINA LC from Nasopharyngeal Swab collected on 02-MAY-2021 13:04:00 EST tested positive for COVID-19.. Surgical history: No active procedure history items have been selected or recorded.. Family history: No family history items have been selected or recorded.. Social history: Social & Psychosocial Habits Alcohol 06/06/2022 Alcohol Use: Never Substance Abuse 06/06/2022 Substance use: Never Tobacco 06/06/2022 Smoking tobacco use: Never tobacco user Electronic Cigarette/Vaping 06/06/2022 Electronic Cigarette Use: Never . Problem list: Active Problems (2) Cough Viral illness . Physical Examination Vital Signs Vital Signs 06/06/2022 17:03 EST Systolic Blood Pressure 122 mmHg Diastolic Blood Pressure 80 mmHg 06/06/2022 16:53 EST Temperature Tympanic 36.4 DegC LOW Peripheral Pulse Rate 100 bpm Respiratory Rate 16 br/min SpO2 95 % Oxygen Therapy Room air . Measurements 06/06/2022 17:03 EST Height 172.72 cm Weight 129.18 kg Body Mass Index 43.3 kg/m2 06/06/2022 16:53 EST Height 172.72 cm Weight 129.18 kg Body Mass Index Measured 43.3 kg/m2 BSA Measured 2.49 m2 . Medical Decision Making Results review: Lab results : Lab Flowsheet 06/06/2022 16:55 EST Streptococcus A Negative . Impression and Plan Diagnosis Right otitis media (MVL55-XH H66.91, Discharge, Medical) Sore throat (QGZ77-GT J02.9, Discharge, Medical) Plan Prescriptions: Launch prescriptions Pharmacy: predniSONE 20 mg oral tablet (Prescribe): 40 mg = 2 tab(s), PO, Daily, for 5 day(s), Take with food to avoid gastric reflux or upset stomach, 10 tab(s), 0 Refill(s) amoxicillin 500 mg oral tablet (Prescribe): 500 mg = 1 tab(s), PO, BID, for 10 day(s), 20 tab(s), 0 Refill(s). Patient was given the following educational materials: Otitis Media, Adult, Pxhj-je-Fnja, Sore Throat, Uahk-gn-Zobp Revised (MHASPASIC). Follow up with: Amanda Samuel Begin on the amoxicillin, take every 12 hours for the next 10 days Alternate tylenol and motrin for any pain or fevers Stay hydrated, drink plenty of fluids Follow-up with your primary care physician in 3-5 days for reevaluation, sooner if any worsening symptoms. Counseled: Patient, Regarding diagnosis, Regarding diagnostic results, Regarding treatment plan, Regarding prescription, Patient indicated understanding of instructions. [Electronically Signed on: 06/06/2022 17:20 EST] [employer] Mcnamara [Verified on: 06/06/2022 17:20 EST] Grupo Mcnamara [address] [facility] [address] [facility] ? Urgent Care [address] [place] [address] PATIENT DISCHARGE INSTRUCTIONS Patient Information Name: SAIMA YANCEY Age: 27 Years Date of : 1995 Reason For Visit: Throat pain; UC - Ear Problem; SORE THROAT Arrival Time: 06/06/2022 16:43:19 Primary Care Physician: Amanda Samuel CNP Attending Physician: [employer] Mcnamara Comment: Visit Diagnosis: Diagnoses This Visit Right otitis media (H66.91) Sore throat (J02.9) Throat pain ([id number]) UC - Ear Problem ([id number]) If you received any narcotics, sedation, or any other medication that causes drowsiness for the next 24 hours, unless otherwise directed: ? Do not drive a car. ? Do not operate machinery such as power tools, lawn mowers, drills, sewing machines, or stoves ? Avoid alcoholic beverages and drugs for allergies, nerves, or sleep ? Do not make important personal or business decisions or sign any legal documents With: Address: When: Amanda Samuel [address] [place], [place] [phone] Business (1) Comments: Begin on the amoxicillin, take every 12 hours for the next 10 days Alternate tylenol and motrin for any pain or fevers Stay hydrated, drink plenty of fluids Follow-up with your primary care physician in 3-5 days for reevaluation, sooner if any worsening symptoms Medication Information: The exam and treatment you received today in the [facility] were for an urgent problem and are not intended as complete care. It is important for you to follow up with a doctor, nurse practitioner, or physician?s assistant editor for ongoing care. If your symptoms become worse or you do not improve as expected and you are unable to reach your usual health care provider, you should return to the Emergency Department, we are available 24 hours a day. For those patients who have received Radiology results, the interpretation of your X-ray as given to you by our Urgent Care physician is only a preliminary report. The Radiologist will review your films and if there is a change in the diagnosis you will be notified by phone. Please make sure you have provided a working phone number so we can reach you if necessary. In the event that you had a lab culture while you were a patient in the Urgent Care, you will be notified by phone if there is a need to change your antibiotic. Please make sure you have provided a working phone number so we can reach you if necessary. [facility] has provided you with a complete list of medications post discharge. Please inform your primary class teacher/provider of your visit and for further instruction on these medications. Any specific questions regarding your chronic medications and dosages should be discussed with your primary care physician(s) and/or pharmacist. New Medications [facility], [address] [place] [address] [phone], [phone] amoxicillin (amoxicillin 500 mg oral tablet) 1 tab(s) Oral 2 times a day for 10 Days. Refills: 0. predniSONE (predniSONE 20 mg oral tablet) 2 tab(s) Oral every day for 5 Days. Take with food to avoid gastric reflux or upset stomach. Refills: 0. Visit Information Allergies: Substance Reaction Symptoms Type Comments No Known Medication Allergies Drug Vital Signs: Vitals and Measurements this Visit (last charted value for your 06/06/2022 visit) Vital Signs This Visit Temperature Tympanic: 36.4 DegC Peripheral Pulse Rate: 100 bpm Respiratory Rate: 16 br/min Systolic Blood Pressure: 122 mmHg Diastolic Blood Pressure: 80 mmHg SpO2: 95 % Oxygen Therapy: Room air Measurements This Visit Height/Length Measured: 172.72 cm Weight Measured: 129.18 kg Body Mass Index: 43.3 kg/m2 Body Mass Index: 43.3 kg/m2 BSA Measured: 2.49 m2 Problems List: Problem Onset Comments Cough Viral illness Patient Education Sore Throat When you have a sore throat, your throat may: ? Hurt. ? Burn. ? Feel irritated. ? Feel scratchy. Many things can cause a sore throat, including: ? A viral infection. ? A bacterial infection ? Allergies. ? Dryness in the air. ? Smoke or pollution. ? Gastroesophageal reflux disease (GERD). A sore throat can be the first sign of another sickness. It can happen with other problems, like coughing or a fever. Most sore throats go away without treatment. Follow these instructions at home: ? Take jqjy-trc-tmytzdr medicines only as told by your doctor. ? Drink enough fluids to keep your pee (urine) clear or pale yellow. ? Rest when you feel you need to. ? To help with pain, try: ? Sipping warm liquids, such as broth, herbal tea, or warm water. ? Eating or drinking cold or frozen liquids, such as frozen ice pops. ? Gargling with a salt-water mixture 3?4 times a day or as needed. To make a salt-water (more content not included)... Normal [facility] PREG QUANT HCGon 06-05-2022 HCG QUANT <1 Normal [facility] Comment on above: Performed By: #### P REGQNT #### [facility] [address] [place] [address] Dr. Aaron Flores HCG RANGE SEE BELOW Normal [facility] Comment on above: Result Comment: 5-50 0.2-1 WEEK 50-500 1-2 WEEKS 100-5,000 2-3 WEEKS 500-10,000 3-4 WEEKS 1,000-50,000 4-5 WEEKS 10,000-100,000 5-6 WEEKS 15,000-200,000 6-8 WEEKS 10,000-100,000 2-3 MONTHS Performed By: #### P REGQNT #### [facility] [address] [place] [address] Dr. Aaron Flores PROGESTERONEon 05-08-2022 Progesterone 9.0 ng/mL Normal [facility] Comment on above: Result Comment: Foll icular phase 0.1 - 0.9 Luteal phase 1.8 - 23.9 Ovulation phase 0.1 - 12.0 First trimester 11.0 - 44.3 Second trimester 25.4 - 83.3 Third trimester 58.7 - 214.0 Postmenopausal 0.0 - 0.1 Performed By: #### P BUDES #### [facility] [address] [place] [address] Dr. Aaron Flores PREG QUANT HCGon 05-06-2022 HCG QUANT 1 mIU/mL Normal [facility] Comment on above: Performed By: #### P REGQNT #### [facility] [address] [place] [address] Dr. Aaron Flores HCG RANGE SEE BELOW Normal [facility] Comment on above: Result Comment: 5-50 0.2-1 WEEK 50-500 1-2 WEEKS 100-5,000 2-3 WEEKS 500-10,000 3-4 WEEKS 1,000-50,000 4-5 WEEKS 10,000-100,000 5-6 WEEKS 15,000-200,000 6-8 WEEKS 10,000-100,000 2-3 MONTHS Performed By: #### P REGQNT #### [facility] [address] [place] [address] Dr. Aaron Flores PROGESTERONEon 03-10-2022 Progesterone <0.1 Normal [facility] Comment on above: Result Comment: Foll icular phase 0.1 - 0.9 Luteal phase 1.8 - 23.9 Ovulation phase 0.1 - 12.0 First trimester 11.0 - 44.3 Second trimester 25.4 - 83.3 Third trimester 58.7 - 214.0 Postmenopausal 0.0 - 0.1 Performed By: #### P ROGES #### [facility] [address] [place] [address] Dr. Aaron Flores PROGESTERONEon 01-04-2022 Progesterone 0.2 ng/mL Normal [facility] Comment on above: Result Comment: Foll icular phase 0.1 - 0.9 Luteal phase 1.8 - 23.9 Ovulation phase 0.1 - 12.0 First trimester 11.0 - 44.3 Second trimester 25.4 - 83.3 Third trimester 58.7 - 214.0 Postmenopausal 0.0 - 0.1 Performed By: #### P SPRING #### [facility] [address] [address] [address] Aaron Flores CBC AUTO DIFFon 09-14-2021 BASO # 0.0 103/ul Normal 0.0-0.1 [facility] Comment on above: Performed By: #### C BC #### [facility] [address] [address] [address] Aaron Flores Basophils/100 WBC (Bld) 0.4 % Normal 0.2-2.0 [facility] Comment on above: Performed By: #### C BC #### [facility] [address] [address] [address] Aaron Flores EO # 0.1 103/ul Normal 0.0-0.7 [facility] Comment on above: Performed By: #### C BC #### [facility] [address] [place] [address] Dr. Aaron Flores Eosinophils/100 WBC (Bld) 1.1 % Normal 0.9-7.0 [facility] Comment on above: Performed By: #### C BC #### [facility] [address] [address] [address] Aaron Flores Erythrocyte distribution width (RBC) [Ratio] 11.9 % Normal 11.0-15.0 [facility] Comment on above: Performed By: #### C BC #### [facility] [address] [place] [address] Dr. Aaron Flores Hematocrit (Bld) [Volume fraction] 46.0 % Normal 36.0-48.0 [facility] Comment on above: Performed By: #### C BC #### [facility] [address] [address] [address] Aaron Flores Hemoglobin (Bld) [Mass/Vol] 15.1 g/dL Normal 12.0-16.0 [facility] Comment on above: Performed By: #### C BC #### [facility] [address] [address] [address] Aaron Flores IG # 0.00 10e3/ul Normal 0.00-0.03 [facility] Comment on above: Performed By: #### C BC #### [facility] [address] [place] [address] Dr. Aaron Flores IG % 0.0 % Normal 0.0-0.5 [facility] Comment on above: Performed By: #### C BC #### [facility] [address] [place] [address] Dr. Aaron Flores LYMPH # 1.7 103/ul Normal 1.2-3.8 [facility] Comment on above: Performed By: #### C BC #### [facility] [address] [place] [address] Dr. Aaron Flores Lymphocytes/100 WBC (Bld) 31.9 % Normal 20.5-60.0 [facility] Comment on above: Performed By: #### C BC #### [facility] [address] [place] [address] Dr. Aaron Flores MANUAL DIFF REQ NO Normal [facility] Comment on above: Performed By: #### C BC #### [facility] [address] [place] [address] Dr. Aaron Flores MCH (RBC) [Entitic mass] 29.7 pg Normal 26.7-34.0 [facility] Comment on above: Performed By: #### C BC #### [facility] [address] [place] [address] Dr. Aaron Flores MCHC (RBC) [Mass/Vol] 32.8 g/dL Normal 29.9-35.2 [facility] Comment on above: Performed By: #### C BC #### [facility] [address] [place] [address] Dr. Aaron Flores MCV (RBC) [Entitic vol] 90.6 fL Normal 81.0-99.0 [facility] Comment on above: Performed By: #### C BC #### [facility] [address] [place] [address] Dr. Aaron Flores MONO # 0.3 103/ul Normal 0.3-0.8 [facility] Comment on above: Performed By: #### C BC #### [facility] [address] [place] [address] Dr. Aaron Flores Monocytes/100 WBC (Bld) 5.4 % Normal 1.7-12.0 [facility] Comment on above: Performed By: #### C BC #### [facility] [address] [place] [address] Dr. Aaron Flores NEUT # 3.3 103/ul Normal 1.4-6.5 [facility] Comment on above: Performed By: #### C BC #### [facility] [address] [place] [address] Dr. Aaron Flores Neutrophils/100 WBC (Bld) 61.2 % Normal 43.0-75.0 [facility] Comment on above: Performed By: #### C BC #### [facility] [address] [place] [address] Dr. Aaron Flores Platelet mean volume (Bld) [Entitic vol] 11.9 fL Normal 9.5-13.5 [facility] Comment on above: Performed By: #### C BC #### [facility] [address] [place] [address] Dr. Aaron Flores PLT 182 103/ul Normal 150-450 [facility] Comment on above: Performed By: #### C BC #### [facility] [address] [place] [address] Dr. Aaron Flores RBC 5.08 106/ul Normal 4.20-5.40 [facility] Comment on above: Performed By: #### C BC #### [facility] [address] [place] [address] Dr. Aaron Flores WBC 5.4 103/ul Normal 4.0-11.0 [facility] Comment on above: Performed By: #### C BC #### [facility] [address] [place] [address] Dr. Aaron Flores PREG QUANT HCGon 09-14-2021 HCG QUANT 1 mIU/mL Normal [facility] Comment on above: Performed By: #### P REGQNT #### [facility] [address] [place] [address] Dr. Aaron Flores HCG RANGE SEE BELOW Normal [facility] Comment on above: Result Comment: 5-50 0-1 WEEK 40-300 1-2 WEEKS 100-1,000 2-3 WEEKS 500-6,000 3-4 WEEKS 5,000-200,000 1-2 MONTHS 10,000-100,000 2-3 MONTHS 3,000-50,000 2ND TRIMESTER 1,000-50,000 3RD TRIMESTER Performed By: #### P REGQNT #### [facility] [address] [address] [address] Aaron Flores [facility]26 SARS-CoV-2 (COVID-19) RNA ROBINA+probe Ql (Unsp spec) Not detected Normal NOT DETECTED [facility] Comment on above: Result Comment: This test is not yet approved or cleared by the [place] FDA. When there are no FDA-approved or cleared tests available, and other criteria are met, FDA can make tests available under an emergency access mechanism called an Emergency Use Authorization (EUA). The EUA for this test is supported by the Instrument Mechanic of Health and Human Service's (HHS's) declaration that circumstances exist to justify the emergency use of in vitro diagnostics for the detection and/or diagnosis of the virus that causes COVID-19. This EUA will remain in effect (meaning this test can be used) for the duration of the COVID-19 declaration justifying emergency of IVDs, unless it is terminated or revoked by FDA (after which the test may no longer be used). When diagnostic testing is negative, the possibility of a false negative should be considered in the context of a patient's recent exposures and the presence of clinical signs and symptoms consistent with SARS-CoV-2. Performed By: #### P SPRING #### [facility] [address] [address] [address] Aaron Flores PAP ACOG PANEL 2: 21 to 29on 08-27-2021 . . Normal [facility] Comment on above: Performed By: #### P SPRING #### [facility] [address] [address] [address] Aaron Flores Age Gdln ACOG Testing 21-29 Normal [facility] Comment on above: Performed By: #### P ROGES #### [facility] [address] [address] [address] Aaron Flores DIAGNOSIS: Comment Normal [facility] Comment on above: Result Comment: NEGA TIVE FOR INTRAEPITHELIAL LESION OR MALIGNANCY. Performed By: #### P ROGES #### [facility] [address] [address] [address] Aaron Flores Methodology: Comment Normal [facility] Comment on above: Result Comment: This liquid based ThinPrep(R) pap test was screened with the use of an image guided system. Performed By: #### P ROGES #### [facility] [address] [place] [address] Dr. Aaron Flores Note: Comment Normal [facility] Comment on above: Result Comment: The Pap smear is a screening test designed to aid in the detection of premalignant and malignant conditions of the uterine cervix. It is not a diagnostic procedure and should not be used as the sole means of detecting cervical cancer. Both false-positive and false-negative reports do occur. . Performed By: #### P ROGES #### [facility] [address] [address] [address] Aaron Flores Performed by: Comment Normal [facility] Comment on above: Result Comment: Larissa Lopez, Supervisory Baseball Glove Stuffer (ASCP) Performed By: #### P ROGES #### [facility] [address] [place] [address] Dr. Aaron Flores Reflex Criteria: Comment Normal [facility] Comment on above: Result Comment: The HPV DNA reflex criteria were not met with this specimen result therefore, no HPV testing was performed. . Performed By: #### P ROGES #### [facility] [address] [address] [address] Aaron Flores Specimen adequacy: Comment Normal [facility] Comment on above: Result Comment: Sati sfactory for evaluation. Endocervical and/or squamous metaplastic cells (endocervical component) are present. Performed By: #### P ROGES #### [facility] [address] [place] [address] Dr. Aaron Mcfarland 04-11-2017 FELICITAS Office Visit (EXPNOL) -SAIMA YANCEY ([id number]) 1995 [facility] Time Provider Fhadhrmwyw63/15/17 7:00 PM JAZMIN NIEVES) EXPNOL During your visit today, we recorded the following information about you: Temperature Pulse Blood pressure Weight 98.2 degrees 98/minute 122/67 104.3 kgSalomóncamila PHILLIP Nieves 04/11/2017 7:35 PM SignedHPI Comments: [facility]- ANDquot; mouth issue ANDquot;HPI- Saima Naye is a 22 year old female who presents to the express carewith concerns of R lower gum pain for the past 4-5 days. Feels like a sharppain. No worsening pain with chewing. Salty foods make it worse. Tried coolliquids and ice without improvement. Does not recall any gum injury whileeating. Also took ibuprofen for discomfort.In the last 6-8 months she had dental work with filling 18 cavities and hadANDquot;deep cleaningANDquot; for gingivitisThe history is provided by the patient. No test technician was used.Review of SystemsConstitutional: Negative for fever.HENT: Negative for congestion.Respiratory: Negative for cough.Blood pressure 122/67, pulse 98, temperature 36.8 ?C (98.2 ?F), temperaturesource Oral, weight 104.3 kg (230 lb), last menstrual period 04/21/2016, notcurrently .Physical ExamConstitutional: She is oriented to person, place, and time and well-developed,well-nourished , and in no distress.HENT:Head: Normocephalic and atraumatic.Mouth/Throat: Uvula is midline, oropharynx is clear and moist and mucousmembranes are normal. Oral lesions (aphthous ulcer noted at R lower gum line)present. No dental abscesses or lacerations.Pulmonary/Chest: Effort normal.Neurological: She is alert and oriented to person, place, and time. Gaitnormal.Skin: Skin is warm and dry.Psychiatric: Mood, memory, affect and judgment normal.Nursing note and vitals reviewed.ASSESSMENT/PLAN:1. Oral aphthous ulcer - ICD9: 528.2, ICD10: K12.0- no dental abscess on examCombine equal parts Maalox and Benadryl liquid in tablespoon, swish and spit 4times daily- BENZOCAINE 20 % MUCOSAL PASTE - apply to the affected area 4 times dailyThis may last 7-10 days on average and can re-occurAlso advised to avoid acidic or salty foods until ulcer resolveISIDRO Hi-Sony Nieves PA-C 04/11/2017 7:31 PM SignedASSESSMENT/PLAN:1. Oral aphthous ulcer - ICD9: 528.2, ICD10: K12.0Combine equal parts Maalox and Benadryl liquid in tablespoon, swish and spit 4times daily- BENZOCAINE 20 % MUCOSAL PASTE - apply to the affected area 4 times dailyThis may last 7-10 days on average and can re-occurISIDRO Brito-CReferring Provider: SELF [[id number]]Allergies As of Date: 04/11/2017(No Known Allergies)Date Reviewed: 04/11/2017Reviewed by: Evelin Vallejo MA - Fully AssessedReason for Visit: Mouth/Lip Problem [68] Cmt: pain right side of mouth/gum area x fridayPrimary Visit Diagnosis:Oral aphthous ulcer [K12.0]Order(s):benzocaine (ORABASE, BENZOCAINE,) 20 % pste mucosal pasteApply pea sized amount to affected area 4 times daily as needed for painDisp: 11.9 gRfl: 0Prescriptions as of 04/11/2017 Sig: BENZOCAINE 20 % MUCOSAL PASTE Apply pea sized amount to aff* TOBRAMYCIN 0.3 % EYE DROPS Use 1-2 Drops in the right ey* XULANE 150 MCG-35 MCG/24 HR T* Apply 150 mcg as directed onc* TRAMADOL 50 MG TABLET Take 1 tablet by mouth every *Problem List As Of Date 04/11/2017 Noted Resolved Patellofemoral stress syndrome of right knee [M*INVALID FOR* Confirm cardiac activity using ultrasound*INVALID FOR* Missed [O02.1] INVALID FOR* NO SHOW INVALID FOR* Decreased ROM of lower extremity [M25.669] INVALID FOR* Muscle weakness [M62.81] INVALID FOR* Right knee pain [M25.561] INVALID FOR* Other instructions from your clinician: ASSESSMENT/PLAN: 1. Oral aphthous ulcer - ICD9: 528.2, ICD10: K12.0 Combine equal parts Maalox and Benadryl liquid in tablespoon, swish and spit 4 times daily - BENZOCAINE 20 % MUCOSAL PASTE - apply to the affected area 4 times daily This may last 7-10 days on average and can re-occur ISIDRO Brito-CPrescriptions ordered this encounter Disp Refills Start End BENZOCAINE 20 % MUCOSAL PASTE 11.9* 0 04/11/2017 Sig: Apply pea sized amount to affected area 4 times daily as needed for painLevel of Service: EST PATIENT VISIT LEVEL 3 [[id number]]Disposition: Return if symptoms worsen or fail to improve.Follow-up and Disposition History RecordedEncounter Number: [id number] Status:Closed by JAZMIN NIEVES PA-C on 04/11/17 [facility] PROGRESSon 04-11-2017 PROGRESS HNO ID: [id number] thor: Jazmin Rosa) Sevenervice: (none)Author Type: Physician AssistantType: Progress NotesFiled: 04/11/2017 7:35 PMNote Text:HPI Comments: [facility] Visit[facility]- mouth issue HPI- Saima Yancey is a 22 year old female who presents to the [facility] with concerns of R lower gum pain for the past 4-5 days. Feels like asharp pain. No worsening pain with chewing. Salty foods make it worse.Tried cool liquids and ice without improvement. Does not recall any guminjury while eating. Also took ibuprofen for discomfort.In the last 6-8 months she had dental work with filling 18 cavities andhad deep cleaning for gingivitisThe history is provided by the patient. No test technician was used.Review of SystemsConstitutional: Negative for fever.HENT: Negative for congestion.Respiratory: Negative for cough.Blood pressure 122/67, pulse 98, temperature 36.8 ?C (98.2 ?F),temperature source Oral, weight 104.3 kg (230 lb), last menstrual wpkfoe1904/21/2016, not currently .Physical ExamConstitutional: She is oriented to person, place, and time andwell-developed, well-nourished, and in no distress.HENT:Head: Normocephalic and atraumatic.Mouth/Throat: Uvula is midline, oropharynx is clear and moist and mucousmembranes are normal. Oral lesions (aphthous ulcer noted at R lower gumline) present. No dental abscesses or lacerations.Pulmonary/Chest: Effort normal.Neurological: She is alert and oriented to person, place, and time. Gaitnormal.Skin: Skin is warm and dry.Psychiatric: Mood, memory, affect and judgment normal.Nursing note and vitals reviewed.ASSESSMENT/PLAN:1. Oral aphthous ulcer - ICD9: 528.2, ICD10: K12.0- no dental abscess on examCombine equal parts Maalox and Benadryl liquid in tablespoon, swish andspit 4 times daily- BENZOCAINE 20 % MUCOSAL PASTE - apply to the affected area 4 timesdailyThis may last 7-10 days on average and can re-occurAlso advised to avoid acidic or salty foods until ulcer resolveArmida Nieves PA-C Normal [facility] CNOVon 03-29-2017 CNOV Office Visit (EXPNOL) -SAIMA YANCEY ([id number]) 1995 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 Pt states she woke up this AM with crusting to right eye; c/oredness, itching, and watering that started this AM. Denies changes in vision,foreign body sensation, trauma to eye, photophobia, or pain.Review of SystemsConstitutional: Negative.HENT: Negative.Eyes: Positive for discharge and redness. Negative for blurred vision, doublevision, photophobia and pain.Respiratory: Negative.Cardiovascular: Negative.Musculoskeletal: Negative.Skin: Negative.All other systems reviewed and are negative.Physical ExamConstitutional: She is oriented to person, place, and time and well-developed,well-nourished , and in no distress. Vital signs are normal.HENT:Head: Normocephalic and atraumatic.Right Ear: Hearing, tympanic membrane, external ear and ear canal normal.Left Ear: Hearing, tympanic membrane, external ear and ear canal normal.Nose: Nose normal.Mouth/Throat: Uvula is midline, oropharynx is clear and moist and mucousmembranes are normal.Eyes: EOM are normal. Pupils are equal, round, and reactive to light. Right eyeexhibits discharge. Right conjunctiva is injected. Right conjunctiva has nohemorrhage. Left conjunctiva is not injected. Left conjunctiva has nohemorrhage.+crusting to right upper eyelashesOS: 20/30OD: 20/30OU: 20/20Neck: Normal range of motion. Neck supple.Cardiovascular: Normal rate, regular rhythm and normal heart sounds.Pulmonary/Chest: Effort normal and breath sounds normal.Musculoskeletal: Normal range of motion.Lymphadenopathy: She has no cervical adenopathy.Neurological: She is alert and oriented to person, place, and time. Gaitnormal.Skin: Skin is warm and dry.Psychiatric: Mood and affect normal.Nursing note and vitals reviewed.ASSESSMENT/PLAN:1. Acute bacterial conjunctivitis of right eye - ICD9: 372.03, ICD10: H10.31(primary diagnosis)Bacterial- See medication orders- Course and contagiousness issues discussed, including hand washing.- Warm compresses to eye- No eye make up during course of treatment- Use moisturizing eye drops- Instructed to call if high fever, development of periorbital redness orswelling, eye pain, visual changes, concerns or if symptoms persist.- TOBRAMYCIN 0.3 % EYE DROPS2. Irregular menses - ICD9: 626.4, ICD10: N92.6- test negative- Follow up with [facility]/PCP if irregular menses continues- HCG QUAL UR B/Maya Ridley, Yevgeniy Ridley, STEPHON, MOLD CUTTING MACHINE OPERATOR 03/29/2017 9:09 AM SignedEXPRESS CARE PATIENT INFOCONJUNCTIVITIS OVERVIEWConjunctivitis, also called ANDquot;pinkeyeANDquot;, is defined as an inflammationof the conjunctiva. The conjunctiva is the thin membrane that lines the innersurface of the eyelids and the whites of the eyes (called the sclera).Conjunctivitis can affect children and adults. The most common symptoms ofconjunctivitis include a red eye and discharge.There are many potential causes of conjunctivitis, including bacterial or viralinfections, allergies, or a non-specific condition (eg, a foreign body in theeye). All types of conjunctivitis cause a red eye, although not everyone with ared eye has conjunctivitis.TYPES OF CONJUNCTIVITISThere are four main types of conjunctivitis: bacterial, viral, allergic, andnon-specific. Most cases of infectious conjunctivitis are viral in adults andchildren; however, bacterial conjunctivitis is more common in children than inadults.Viral conjunctivitis ? Viral conjunctivitis is typically caused by a virus thatcan also cause the common cold. A person may have symptoms of conjunctivitisalone, or as part of a general cold syndrome, with swollen lymph nodes(glands), fever, a sore throat, and runny nose.Viral conjunctivitis is highly contagious. It is spread by contact, usuallywith objects which have come into contact with the infected person's eyesecretions. As examples, the virus can be transmitted when an infected persontouches their eye and then touches another surface (eg, door handle) or sharesan object that has touched their eye (eg, a towel or pillow case).The most common symptoms of viral conjunctivitis include redness, watery ormucus discharge, and a burning, marcia, or gritty feeling in one eye. Somepeople have morning crusting followed by watery discharge, perhaps with somescant mucus discharge throughout the day. The second eye usually becomesinfected within 24 to 48 hours.There is no cure for viral conjunctivitis. Recovery can begin within days,although the symptoms frequently get worse for the first three to five days,with gradual improvement over the following one to two weeks for a total courseof two to three weeks. Some people experience morning crusting that continuesfor up to two weeks after the initial symptoms, although the daytime redness,irritation, and tearing should be much improved.Bacterial conjunctivitis ? Bacterial conjunctivitis is highly contagious, oftenaffecting multiple family members or children within a classroom. Bacterialconjunctivitis is spread by contact, usually with objects which have come intocontact with the infected person's eye secretions. As examples, the virus canbe transmitted when an infected person touches their eye and then touchesanother surface (eg, door handle) or shares an object that has touched theireye (eg, a towel or pillow case).The most common symptoms of bacterial conjunctivitis include redness and thickdischarge from one eye, although both eyes can become infected. The dischargemay be yellow, white, or green, and it usually continues to drain throughoutthe day. The affected eye often is ANDquot;stuck shutANDquot; in the morning.Most types of bacterial conjunctivitis resolve quickly and cause no permanentdamage when treated with antibiotic eye drops or ointmentNon-specific conjunctivitis ? It is possible to develop a red eye and dischargethat is not caused by an infection or allergy. The most common causes includeone of the following.? People with a dry eye may have chronic or intermittent redness or discharge.A person whose eyes are irrigated after a chemical splash may have redness anddischarge.? A person with a foreign body (eg, dust, eyelash) in the eye may have rednessand discharge for 12 to 24 hours after the object is removed.All of these problems generally improve spontaneously within 24 hours.CONJUNCTIVITIS TREATMENTThe treatment of conjunctivitis depends upon the cause. For this reason, it isimportant to have the correct diagnosis before treatment begins.Viral conjunctivitis treatment ? A topical antihistamine/decongestant eye dropmay help to relieve the itching and irritation of viral conjunctivitis. Thesedrops are available without a prescription in most pharmacies. However,particular care must be taken to avoid spreading viral infections from one eyeto the other ? apply drops only to affected eye and wash hands thoroughly afterapplication. Similar to cold medicines, this treatment may reduce the symptomsbut does not shorten the course of the infection. Another option is to use warmor cool compresses, as needed.The irritation and discharge may get worse for three to five days beforegetting better, and symptoms can persist for two to three weeks.Bacterial conjunctivitis treatment ? Bacterial conjunctivitis is usuallytreated with an antibiotic eye drop or ointment. When started early, treatmenthelps to shorten the duration of symptoms, although most cases do resolvespontaneously if no treatment is used.Adults ? Adults are usually treated with an antibiotic eye drop or ointment forfive to seven days. Redness, irritation, and eye discharge should begin toimprove within 24 to 48 hours. If there is no improvement or if the conditionworsens within this time, the person should be evaluated by an landscaping and groundskeeping laborer.Contact lens wearers ? People who wear contact lenses should be evaluated by [facility] provider before treatment begins; this is to confirm the diagnosisof conjunctivitis and to be sure that another, more serious condition relatedto contact lens use (an infection of the cornea), is not present.People who wear contact lenses should avoid wearing the lenses during the first24 hours of treatment, or until the eye is no longer red. The contact caseshould be thrown away and the contacts disinfected overnight or replaced (ifdisposable).Return to work/school ? The safest approach to avoid spreading viral andbacterial conjunctivitis to others is to stay home until there is no longer anydischarge from the eye(s). However, this is not practical for most students andfor those who work outside the home. Most daycare centers and schools requirethat students receive 24 hours of eye drops or ointment before returning [facility]. This treatment helps to prevent the spread of bacterial conjunctivitis,but is not necessary or helpful for children with viral conjunctivitis.Viral conjunctivitis is similar to a cold because it spreads easily betweenpeople. Younger children, who may not remember to wash their hands or avoidtouching their eyes, should probably not attend school until the discharge hasresolved. Older students or adults may choose to attend school/work, althoughthey should limit close contact with others.In addition, adults who have contact with the very old, the very young, andpeople with a weakened immune system should limit contact with thesesusceptible individuals.Non-specific conjunctivitis treatment ? The conjunctiva heals quickly after itis injured, and non-specific conjunctivitis usually resolves within a few dayswithout any treatment. However, the eye may feel better faster when it istreated with a lubricant, such as drops or ointments. These products areavailable without a prescription in most pharmacies. Preservative-freepreparations are more expensive and are necessary only for people with a severecase of dry eye and those who are allergic to preservatives.Lubricant drops can be used as often as hourly with no side effects. Theointment provides longer lasting relief but blurs vision temporarily. For thisreason, some people use ointment only at bedtime. It may be worthwhile toswitch brands if one brand of drop or ointment is irritating, since eachpreparation contains different active and inactive ingredients andpreservatives.Antibiotic or steroid eye drops/ointments are not recommended unless there is aspecific reason they are needed (eg, a bacterial infection or inflammatorycondition). Using these treatments when they are not needed can lead to seriouscomplications. If the symptoms of conjunctivitis do not improve within twoweeks, an examination with an landscaping and groundskeeping laborer may be recommended.CONJUNCTIVITIS PREVENTIONBacterial and viral conjunctivitis are both highly contagious and spread bydirect contact with secretions or contact with contaminated objects. Simplehygiene measures can help minimize transmission to others.? Adults or children with bacterial or viral conjunctivitis should not sharehandkerchiefs, tissues, towels, cosmetics, or bed sheets/pillows withuninfected family or friends.? Hand washing is an essential and highly effective way to prevent the spreadof infection. Hands should be wet with water and plain soap, and rubbedtogether for 15 to 30 seconds. It is not necessary to use antibacterial handsoap. Teach children to wash their hands before and after eating and aftertouching the eyes, coughing, or sneezing.? Alcohol-based hand rubs are a good alternative for disinfecting hands if asink is not available. Hand rubs should be spread over the entire surface ofhands, fingers, and wrists until dry, and may be used several times. These rubscan be used repeatedly without skin irritation or loss of effectiveness.Referring Provider: SELF [[id number]]Allergies As of Date: 03/29/2017(No Known Allergies)Date Reviewed: 03/29/2017Reviewed by: Amina Reyna Ma - Fully AssessedReason for Visit: Eye Problem [43] Cmt: Red sclera with drainage x 6 hrs.Primary Visit Diagnosis:Acute bacterial conjunctivitis of right eye [H10.31] Other Visit Diagnosis:Irregular menses [N92.6]Order(s):[facility] [place] QUAL B/O [[id number]] Order #: [id number] tobramycin (TOBREX) 0.3 % ophthalmic solutionUse 1-2 Drops in the right eye every 6 hours.Disp: 1 BottleRfl: 0Prescriptions as of 03/29/2017 Sig: TRAMADOL 50 MG TABLET Take 1 tablet by mouth every * TOBRAMYCIN 0.3 % EYE DROPS Use 1-2 Drops in the right ey* XULANE 150 MCG-35 MCG/24 HR T* Apply 150 mcg as directed onc*Medication notes this encounter XULANE 150 MCG-35 MCG/24 HR TRANSDERMAL PATCH >> Amina Reyna Ma 03/29/2017 8:51 AM >> AMINA REYNA MA Mar 29, 2017 8:51 AM Not takingProblem List As Of Date 03/29/2017 Noted Resolved Patellofemoral stress syndrome of right knee [M*INVALID FOR* Confirm cardiac activity using ultrasound*INVALID FOR* Missed [O02.1] INVALID FOR* NO SHOW INVALID FOR* Decreased ROM of lower extremity [M25.669] INVALID FOR* Muscle weakness [M62.81] INVALID FOR* Right knee pain [M25.561] INVALID FOR* Other instructions from your clinician: [facility] PATIENT INFO CONJUNCTIVITIS OVERVIEW Conjunctivitis, also called pinkeye , is defined as an inflammation of the conjunctiva. The conjunctiva is the thin membrane that lines the inner surface of the eyelids and the whites of the eyes (called the sclera). Conjunctivitis can affect children and adults. The most common symptoms of conjunctivitis include a red eye and discharge. There are many potential causes of conjunctivitis, including bacterial or viral infections, allergies, or a non-specific condition (eg, a foreign body in the eye). All types of conjunctivitis cause a red eye, although not everyone with a red eye has conjunctivitis. TYPES OF CONJUNCTIVITIS There are four main types of conjunctivitis: bacterial, viral, allergic, and non-specific. Most cases of infectious conjunctivitis are viral in adults and children; however, bacterial conjunctivitis is more common in children than in adults. Viral conjunctivitis ? Viral conjunctivitis is typically caused by a virus that can also cause the common cold. A person may have symptoms of conjunctivitis alone, or as part of a general cold syndrome, with swollen lymph nodes (glands), fever, a sore throat, and runny nose. Viral conjunctivitis is highly contagious. It is spread by contact, usually with objects which have come into contact with the infected person's eye secretions. As examples, the virus can be transmitted when an infected person touches their eye and then touches another surface (eg, door handle) or shares an object that has touched their eye (eg, a towel or pillow case). The most common symptoms of viral conjunctivitis include redness, watery or mucus discharge, and a burning, marcia, or gritty feeling in one eye. Some people have morning crusting followed by watery discharge, perhaps with some scant mucus discharge throughout the day. The second eye usually becomes infected within 24 to 48 hours. There is no cure for viral conjunctivitis. Recovery can begin within days, although the symptoms frequently get worse for the first three to five days, with gradual improvement over the following one to two weeks for a total course of two to three weeks. Some people experience morning crusting that continues for up to two weeks after the initial symptoms, although the daytime redness, irritation, and tearing should be much improved. Bacterial conjunctivitis ? Bacterial conjunctivitis is highly contagious, often affecting multiple family members or children within a classroom. Bacterial conjunctivitis is spread by contact, usually with objects which have come into contact with the infected person's eye secretions. As examples, the virus can be transmitted when an infected person touches their eye and then touches another surface (eg, door handle) or shares an object that has touched their eye (eg, a towel or pillow case). The most common symptoms of bacterial conjunctivitis include redness and thick discharge from one eye, although both eyes can become infected. The discharge may be yellow, white, or green, and it usually continues to drain throughout the day. The affected eye often is stuck shut in the morning. Most types of bacterial conjunctivitis resolve quickly and cause no permanent damage when treated with antibiotic eye drops or ointment Non-specific conjunctivitis ? It is possible to develop a red eye and discharge that is not caused by an infection or allergy. The most common causes include one of the following. ? People with a dry eye may have chronic or intermittent redness or discharge. A person whose eyes are irrigated after a chemical splash may have redness and discharge. ? A person with a foreign body (eg, dust, eyelash) in the eye may have redness and discharge for 12 to 24 hours after the object is removed. All of these problems generally improve spontaneously within 24 hours. CONJUNCTIVITIS TREATMENT The treatment of conjunctivitis depends upon the cause. For this reason, it is important to have the correct diagnosis before treatment begins. Viral conjunctivitis treatment ? A topical antihistamine/decongestant eye drop may help to relieve the itching and irritation of viral conjunctivitis. These drops are available without a prescription in most pharmacies. However, particular care must be taken to avoid spreading viral infections from one eye to the other ? apply drops only to affected eye and wash hands thoroughly after application. Similar to cold medicines, this treatment may reduce the symptoms but does not shorten the course of the infection. Another option is to use warm or cool compresses, as needed. The irritation and discharge may get worse for three to five days before getting better, and symptoms can persist for two to three weeks. Bacterial conjunctivitis treatment ? Bacterial conjunctivitis is usually treated with an antibiotic eye drop or ointment. When started early, treatment helps to shorten the duration of symptoms, although most cases do resolve spontaneously if no treatment is used. Adults ? Adults are usually treated with an antibiotic eye drop or ointment for five to seven days. Redness, irritation, and eye discharge should begin to improve within 24 to 48 hours. If there is no improvement or if the condition worsens within this time, the person should be evaluated by an landscaping and groundskeeping laborer. Contact lens wearers ? People who wear contact lenses should be evaluated by a healthcare provider before treatment begins; this is to confirm the diagnosis of conjunctivitis and to be sure that another, more serious condition related to contact lens use (an infection of the cornea), is not present. People who wear contact lenses should avoid wearing the lenses during the first 24 hours of treatment, or until the eye is no longer red. The contact case should be thrown away and the contacts disinfected overnight or replaced (if disposable). Return to work/school ? The safest approach to avoid spreading viral and bacterial conjunctivitis to others is to stay home until there is no longer any discharge from the eye(s). However, this is not practical for most students and for those who work outside the home. Most daycare centers and schools require that students receive 24 hours of eye drops or ointment before returning to school. This treatment helps to prevent the spread of bacterial conjunctivitis, but is not necessary or helpful for children with viral conjunctivitis. Viral conjunctivitis is similar to a cold because it spreads easily between people. Younger children, who may not remember to wash their hands or avoid touching their eyes, should probably not attend school until the discharge has resolved. Older students or adults may choose to attend school/work, although they should limit close contact with others. In addition, adults who have contact with the very old, the very young, and people with a weakened immune system should limit contact with these susceptible individuals. Non-specific conjunctivitis treatment ? The conjunctiva heals quickly after it is injured, and non-specific conjunctivitis usually resolves within a few days without any treatment. However, the eye may feel better faster when it is treated with a lubricant, such as drops or ointments. These products are available without a prescription in most pharmacies. Preservative-free preparations are more expensive and are necessary only for people with a severe case of dry eye and those who are allergic to preservatives. Lubricant drops can be used as often as hourly with no side effects. The ointment provides longer lasting relief but blurs vision temporarily. For this reason, some people use ointment only at bedtime. It may be worthwhile to switch brands if one brand of drop or ointment is irritating, since each preparation contains different active and inactive ingredients and preservatives. Antibiotic or steroid eye drops/ointments are not recommended unless there is a specific reason they are needed (eg, a bacterial infection or inflammatory condition). Using these treatments when they are not needed can lead to serious complications. If the symptoms of conjunctivitis do not improve within two weeks, an examination with an landscaping and groundskeeping laborer may be recommended. CONJUNCTIVITIS PREVENTION Bacterial and viral conjunctivitis are both highly contagious and spread by direct contact with secretions or contact with contaminated objects. Simple hygiene measures can help minimize transmission to others. ? Adults or children with bacterial or viral conjunctivitis should not share handkerchiefs, tissues, towels, cosmetics, or bed sheets/pillows with uninfected family or friends. ? Hand washing is an essential and highly effective way to prevent the spread of infection. Hands should be wet with water and plain soap, and rubbed together for 15 to 30 seconds. It is not necessary to use antibacterial hand soap. Teach children to wash their hands before and after eating and after touching the eyes, coughing, or sneezing. ? Alcohol-based hand rubs are a good alternative for disinfecting hands if a sink is not available. Hand rubs should be spread over the entire surface of hands, fingers, and wrists until dry, and may be used several times. These rubs can be used repeatedly without skin irritation or loss of effectiveness.Prescriptions ordered this encounter Disp Refills Start End TOBRAMYCIN 0.3 % EYE DROPS 1 Ke[place]* 0 03/29/2017 Route: RIGHT EYE Sig: Use 1-2 Drops in the right eye every 6 hours.Medications Discontinued During This Encounter tobramycin (TOBREX) 0.3 % ophthalmic* 1 Keaton* 0 08/12/2016 03/29/2017 Route: LEFT EYE Sig: Use 1-2 Drops in the left eye every 4 hours for 7 days. Disc: Reason for discontinue is not on file. 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 Pt states she woke up this AM with crusting toright eye; c/o redness, itching, and watering that started this AM. Denieschanges in vision, foreign body sensation, trauma to eye, photophobia, orpain.Review of SystemsConstitutional: Negative.HENT: Negative.Eyes: Positive for discharge and redness. Negative for blurred vision,double vision, photophobia and pain.Respiratory: Negative.Cardiovascular: Negative.Musculoskeletal: Negative.Skin: Negative.All other systems reviewed and are negative.Physical ExamConstitutional: She is oriented to person, place, and time andwell-developed, well-nourished, and in no distress. Vital signs arenormal.HENT:Head: Normocephalic and atraumatic.Right Ear: Hearing, tympanic membrane, external ear and ear canal normal.Left Ear: Hearing, tympanic membrane, external ear and ear canal normal.Nose: Nose normal.Mouth/Throat: Uvula is midline, oropharynx is clear and moist and mucousmembranes are normal.Eyes: EOM are normal. Pupils are equal, round, and reactive to light.Right eye exhibits discharge. Right conjunctiva is injected. Rightconjunctiva has no hemorrhage. Left conjunctiva is not injected. Leftconjunctiva has no hemorrhage.+crusting to right upper eyelashesOS: 20/30OD: 20/30OU: 20/20Neck: Normal range of motion. Neck supple.Cardiovascular: Normal rate, regular rhythm and normal heart sounds.Pulmonary/Chest: Effort normal and breath sounds normal.Musculoskeletal: Normal range of motion.Lymphadenopathy: She has no cervical adenopathy.Neurological: She is alert and oriented to person, place, and time. Gaitnormal.Skin: Skin is warm and dry.Psychiatric: Mood and affect normal.Nursing note and vitals reviewed.ASSESSMENT/PLAN:1. Acute bacterial conjunctivitis of right eye - ICD9: 372.03, ICD10:H10.31 (primary diagnosis)Bacterial- See medication orders- Course and contagiousness issues discussed, including hand washing.- Warm compresses to eye- No eye make up during course of treatment- Use moisturizing eye drops- Instructed to call if high fever, development of periorbital redness orswelling, eye pain, visual changes, concerns or if symptoms persist.- TOBRAMYCIN 0.3 % EYE DROPS2. Irregular menses - ICD9: 626.4, ICD10: N92.6- test negative- Follow up with [facility]/PCP if irregular menses continues- HCG QUAL UR B/Maya Ridley CNP Normal [facility] CNOVon 01-14-2017 CNOV Office Visit ([facility]) -NAYESAIMA Nevarez ([id number]) 1995 FDate Time Provider Department01/14/17 9:00 AM JAMES JONES) [facility] During your visit today, we recorded the following information about you: Pulse Blood pressure 94/minute 120/77Barbara Roque Jones PA-C 01/14/2017 10:01 AM [facility]ignedF[facility] Follow Up VisitS2016 - 9:14 AMSUBJECTIVE:Saimakamron Yancey a 21 year [facility] by self only, for a follow up appointment for RightKnee pain.The pain is located in the right knee pain and does not radiate.Started 2 years ago, was not directly related to trauma, and symptoms have beenpersistent.Characterized as pulsating, radiating and throbbingPain is constantCurrently the pain is a rated at a 3 on a scale of 0-10.Worst pain score is rated at 8 on a scale of 0-10.Best pain score is rated at 0 on a scale of 0-10.Aggravated by sitting, standing, lifting, lying down, walking and driving.Mitigated by medications, ice and heat.The plan from the last visit on 11/18/16 was:PLAN:1) Recommend right knee genicular nerve block x 12) Patient advised in specific detail about potential benefits of opioids alongwith risks including, but not limited to, dependency, addiction, endocrinechanges, anxiety, depression, insomnia, respiratory depression and .Caution advised regarding the use of medication and specific mention maderegarding not to drive or operate heavy machinery if feeling side effects fromthis medication. Patient expressed an understanding about this medication andthese particular concerns.?Advised the patient that narcotics are not recommended for chronicnon-malignant pain - recommend weaning off of narcotics.3) Recommend use of heat to the area4) Recommend use of OTC Salon Pas Gel5) RTC 4 weeks after the injection?Since her last visit the patient reported no change in pain and no change infunction.Current pain medication:1.) Tramadol 50mg Q6H as neededCurrent Anticoagulant Therapy: NoRecent treatments (past 6 months):12/11/16 Right Genicular nerve block Response: 100 % pain relief 1-1/2 weekPhysical Therapy: NoPAST MEDICAL HISTORYDiagnosis Date- NEGATIVE MEDICAL HISTORYPAST SURGICAL HISTORYProcedure Laterality Date- DANDamp;C (MISSED AB 1ST TRIMESTER) 06/2016- NONECurrent Outpatient Prescriptions:XULANE 150-35 mcg/24 hr Apply 150 mcg as directed once each week. 150mcg-35mcgtraMADol (ULTRAM) 50 mg tablet Take 1 tablet by mouth every 6 hours as neededfor Pain.No current facility-administered medications for this visit.ALLERGIESNo Known AllergiesReview of Symptoms:GENERAL:No weight loss, malaise or fevers., SEE HPIGASTROINTESTINAL: Negative for abdominal discomfort, blood in stools or blackstools or change in bowel habitsGENITOURINARY: No history of dysuria, frequency or incontinenceMUSCULOSKELETAL: Positive for joint pain: bilateral knee painNEUROLOGIC:Negative for focal numbness or weakness, headaches and dizziness orsyncope.PREVIOUS TREATMENTS IN THE LAST SIX MONTHSActive conservative therapy in the last six months (see below) 1. Physical therapy:Yes 2. Home exercise program after PT: No 3. Occupational therapy: No 4. A physician supervised home exercise program (HEP): No 5. Spinning Machine Tender: NoPassive conservative therapy in the last six months (see below) 1. Medical devises: No 2. Acupuncture: No 3. Tens unit: No 4. Prescription pain medication: Tramadol 5. NSAIDS: NoDo you fell safe at home? YesRisk assessment at risk due to fall: NONEKalie [facility]ember 2016 - Time: 9:20 AMThe subjective information: including chief complaint, past medical history andreview of systems, was explored in detail with the patient and edited as neededand is complete.ISIDRO Cantu-CSeptember 2016Physical Examination:BP 120/77 Pulse 94 SpO2 97% LMP 04/21/2016General: Overweight, well appearing, alert, in no acute distressSkin: skin color, texture, turgor normal, no rashes or lesionsHEENT: normocephalic, atraumatic, sclera non-ictericCardiovascular:Reg ular rate and rhythmLungs: Respirations even and non-labored.Musculoskeletal: Extremities: Right knee - tenderness with palpation and crepitus with ROM Left knee - no tenderness with palpationNeurological: Mental Status: alert and oriented x 3 Motor Strength: Motor strength and tone are 5/5 all throughout the bilaterallower extremities Sensory: Sensation was intact to light touch all throughout the bilaterallower extremitiesOARRS website checked and validated. All prescriptions have been APPROPRIATELYfilled. No suspicious activity was identified. - January 14, 2017 by Masood Jones PA-C- Ran via [employer] web site - 2 scripts for Tramadol - last scrip filled 05/17/2015#40Current Anticoagulant Therapy: NoHPI ANDamp; ASSESSMENT: .Saima Yancey is a 21 year old female who presents for follow up of rightknee pain she is s/p Right knee genicular nerve block on 12/11/2016 whichprovided 100% pain relief for about 10 days along the lateral aspects. Shereports that she did have pain below the knee cap after the procedure. Shereports the medial knee pain has returned to baseline or worsened but thelateral aspect is still improved. Today she also reports new Left knee pain.She reports constant pain, which she describes as pulsating, radiating andthrobbing. She rates her pain at 3/10 currently and ranges from 0-8/10. Thepain is aggravated by sitting, standing, walking and driving. The pain ismitigated by medications, ice and heat. She reports she is currently takingTramadol 50 mg as needed.On exam right knee tenderness with palpation and crepitus with ROM. There iscrepitus with ROM of the left knee without tenderness to palpation.(M25.561, G89.29) Chronic pain of right knee (primary encounter diagnosis)(M25.562) Acute pain of left kneePLAN:1) Schedule a 2nd Right knee genicular nerve - inf good results for a shortperiod of time consider RFA2) Recommend follow up with orthopaedics regarding new left knee pain.3) RTC 4 weeks after procedure.The above plan and management options were discussed at length with patient.Patient is in agreement with the above and verbalized understanding.[facility]IDRO [facility] [place]Referring Provider: AGAPITO TORRES [[id number]]Allergies As of Date: 01/14/2017(No Known Allergies)Date Reviewed: 12/11/2016Reviewed by: Tamiko TitusRn) ADEN Gray - Fully AssessedReason for Visit: Right Knee Pain [1209]Primary Visit Diagnosis:Chronic pain of right knee [M25.561, G89.29] Other Visit Diagnosis:Acute pain of left knee [M25.562]Prescriptions as of 01/14/2017 Sig: XULANE 150 MCG-35 MCG/24 HR T* Apply 150 mcg as directed onc* TRAMADOL 50 MG TABLET Take 1 tablet by mouth every *Problem List As Of Date 01/14/2017 Noted Resolved Patellofemoral stress syndrome of right knee [M*INVALID FOR* Confirm cardiac activity using ultrasound*INVALID FOR* Missed [O02.1] INVALID FOR* NO SHOW INVALID FOR* Decreased ROM of lower extremity [M25.669] INVALID FOR* Muscle weakness [M62.81] INVALID FOR* Right knee pain [M25.561] INVALID FOR* Status:Closed by JAMES JONES PA-C on 01/14/17 [facility] PROGRESSon 01-14-2017 PROGRESS HNO ID: [id number] thor: James Rosa) Bennettervice: (none)Author Type: Physician AssistantType: Progress NotesFiled: 01/14/2017 10:01 AMNote Text:[facility] Follow Up VisitSept2016 - 9:14 AMSUBJECTIVE:Saima L Yancey a 21 year [facility], accompanied by self only, for a follow upappointment for Right Knee pain.The pain is located in the right knee pain and does not radiate.Started 2 years ago, was not directly related to trauma, and symptoms havebeen persistent.Characterized as pulsating, radiating and throbbingPain is constantCurrently the pain is a rated at a 3 on a scale of 0-10.Worst pain score is rated at 8 on a scale of 0-10.Best pain score is rated at 0 on a scale of 0-10.Aggravated by sitting, standing, lifting, lying down, walking and driving.Mitigated by medications, ice and heat.The plan from the last visit on 11/18/16 was:PLAN:1) Recommend right knee genicular nerve block x 12) Patient advised in specific detail about potential benefits of opioidsalong with risks including, but not limited to, dependency, addiction,endocrine changes, anxiety, depression, insomnia, respiratory depressionand . Caution advised regarding the use of medication and specificmention made regarding not to drive or operate heavy machinery if feelingside effects from this medication. Patient expressed an understandingabout this medication and these particular concerns.?Advised the patient that narcotics are not recommended for chronicnon-malignant pain - recommend weaning off of narcotics.3) Recommend use of heat to the area4) Recommend use of OTC Salon Pas Gel5) RTC 4 weeks after the injection?Since her last visit the patient reported no change in pain and no changein function.Current pain medication:1.) Tramadol 50mg Q6H as neededCurrent Anticoagulant Therapy: NoRecent treatments (past 6 months):12/11/16 Right Genicular nerve block Response: 100 % pain relief 1-1/2weekPhysical Therapy: NoPAST MEDICAL HISTORYDiagnosis Date- NEGATIVE MEDICAL HISTORYPAST SURGICAL HISTORYProcedure Laterality Date- DANDC (MISSED AB 1ST TRIMESTER) 06/2016- NONECurrent Outpatient Prescriptions:XULANE 150-35 mcg/24 hr Apply 150 mcg as directed once each week.150mcg-35mcgtraMADol (ULTRAM) 50 mg tablet Take 1 tablet by mouth every 6 hours asneeded for Pain.No current facility-administered medications for this visit.ALLERGIESNo Known AllergiesReview of Symptoms:GENERAL:No weight loss, malaise or fevers., SEE HPIGASTROINTESTINAL: Negative for abdominal discomfort, blood in stools orblack stools or change in bowel habitsGENITOURINARY: No history of dysuria, frequency or incontinenceMUSCULOSKELETAL: Positive for joint pain: bilateral knee painNEUROLOGIC:Negative for focal numbness or weakness, headaches anddizziness or syncope.PREVIOUS TREATMENTS IN THE LAST SIX MONTHSActive conservative therapy in the last six months (see below) 1. Physical therapy:Yes 2. Home exercise program after PT: No 3. Occupational therapy: No 4. A physician supervised home exercise program (HEP): No 5. Spinning Machine Tender: NoPassive conservative therapy in the last six months (see below) 1. Medical devises: No 2. Acupuncture: No 3. Tens unit: No 4. Prescription pain medication: Tramadol 5. NSAIDS: NoDo you fell safe at home? YesRisk assessment at risk due to fall: NONEKalie [facility] 2016 - Time: 9:20 AMThe subjective information: including chief complaint, past medicalhistory and review of systems, was explored in detail with the patient andedited as needed and is complete.ISIDRO Cantu[facility] [place]Physical Examination:BP 120/77 Pulse 94 SpO2 97% LMP 04/21/2016General: Overweight, well appearing, alert, in no acute distressSkin: skin color, texture, turgor normal, no rashes or lesionsHEENT: normocephalic, atraumatic, sclera non-ictericCardiovascular:Reg ular rate and rhythmLungs: Respirations even and non-labored.Musculoskeletal: Extremities: Right knee - tenderness with palpation and crepitus with ROM Left knee - no tenderness with palpationNeurological: Mental Status: alert and oriented x 3 Motor Strength: Motor strength and tone are 5/5 all throughout thebilateral lower extremities Sensory: Sensation was intact to light touch all throughout the bilaterallower extremitiesOARRS website checked and validated. All prescriptions have beenAPPROPRIATELY filled. No suspicious activity was identified. - 2016 by James Jones PA-C- Ran via [employer] web site - 2 scripts for Tramadol - last scrip filled1/ #40Current Anticoagulant Therapy: NoHPI AND ASSESSMENT: .Saima Yancey is a 21 year old female who presents for follow up ofright knee pain she is s/p Right knee genicular nerve block on 12/11/2016which provided 100% pain relief for about 10 days along the lateralaspects. She reports that she did have pain below the knee cap after theprocedure. She reports the medial knee pain has returned to baseline orworsened but the lateral aspect is still improved. Today she also reportsnew Left knee pain.She reports constant pain, which she describes as pulsating, radiating andthrobbing. She rates her pain at 3/10 currently and ranges from 0-8/10.The pain is aggravated by sitting, standing, walking and driving. The painis mitigated by medications, ice and heat. She reports she is currentlytaking Tramadol 50 mg as needed.On exam right knee tenderness with palpation and crepitus with ROM. Thereis crepitus with ROM of the left knee without tenderness to palpation.(M25.561, G89.29) Chronic pain of right knee (primary encounterdiagnosis)(M25.562) Acute pain of left kneePLAN:1) Schedule a 2nd Right knee genicular nerve - inf good results for ashort period of time consider RFA2) Recommend follow up with orthopaedics regarding new left knee pain.3) RTC 4 weeks after procedure.The above plan and management options were discussed at length withpatient. Patient is in agreement with the above and verbalizedunderstanding.ISIDRO Toledo ra-Francesptember 2016 [facility] CNDSNOTEon 12-23-2016 CNDSNOTE Discharge Note (enc) (PTFVGE) -SAIMA YANCEY ([id number]) 1995 FDate Time Provider Department12/23/16 TAMIKO SHIELDS (PT) PTFVGE During your visit today, we recorded the following information about you:Tamiko Shields, PT 12/23/2016 6:52 PM Signed[facility]ER[facility]PHYSICAL THERAPY DISCONTINUANCE OF CAREPlan of Care Period:Initial Evaluation Date: 09/09/2016Last Visit Date: 10/07/2016Therapy Program: The following is a summary of the interventions provided forthis episode of care; HEP, Individual PT, Modalities and Therapeutic exercise.Assessment:The following is the goal status:As of last session on 10/07/2016. Patient was to return to MD for furtherrecommendation and has not returned for further PT.Whiting in home exercise program. PARTIALLY METPatient will decrease pain rating by 2 points to meet minimal clinicalimportant difference for numeric pain rating scale.NOT METPatient will increase strength of right lower extremity to 4+/5 to allow forreturn to prior functional status, perform ADLs and negotiate stairs.PARTIALLY METPatient will increase flexibility of right hamstrings by 10 degrees, negativeIT band to restore normal mechanics and decrease pain. PARTIALLY METPerform squatting, stairs, standing and walkingANDgt; 3 hours with decreasedreport of symptoms/pain in 8 weeks. MET FOR SQUATTINGDemonstrate improvement on functional score: Patient will increase his/herscore on the Lower Extremity Functional Scale by at least 9 points to indicatea Minimal Clinical Important Difference. UNABLE TO ASSESSImprove postural awareness with squatting, stairs, and walking. PARTIALLY METReciprocal stair negotiation. NOT METPatient will increase balance to 30 seconds for single limb stance on rightlower extemity. MET?Based on most recent progress report, patient was progressing slower thanexpected toward functional goals based on pain levels and documented subjectiveinformation on progressReason for Discontinuation of Care: Patient has not returned to therapy orscheduled additional follow-up appointments.Alejandro Sosa As of Date: 12/23/2016(No Known Allergies)Date Reviewed: 12/11/2016Reviewed by: Tamiko (Aden) ADEN Gray - Fully AssessedReason for Visit: PT Discharge [752]Primary Visit Diagnosis:Patellofemoral stress syndrome of right knee [M22.2X1]Prescriptions as of 12/23/2016 Sig: XULANE 150 MCG-35 MCG/24 HR T* Apply 150 mcg as directed onc* TRAMADOL 50 MG TABLET Take 1 tablet by mouth every *Problem List As Of Date 12/23/2016 Noted Resolved Patellofemoral stress syndrome of right knee [M*INVALID FOR* Confirm cardiac activity using ultrasound*INVALID FOR* Missed [O02.1] INVALID FOR* NO SHOW INVALID FOR* Decreased ROM of lower extremity [M25.669] INVALID FOR* Muscle weakness [M62.81] INVALID FOR* Right knee pain [M25.561] INVALID FOR* Status:Closed by TAMIKO SHIELDS on 12/23/16 [facility] PROGRESSon 12-23-2016 PROGRESS HNO ID: [id number] thor: Tamiko (Pt) Staci: (none)Author Type: Physical TherapistType: Progress NotesFiled: 12/23/2016 6:52 PMNote Text:[facility] THERAPY DISCONTINUANCE OF CAREPlan of Care Period:Initial Evaluation Date: 09/09/2016Last Visit Date: 10/07/2016Therapy Program: The following is a summary of the interventions providedfor this episode of care; HEP, Individual PT, Modalities and Therapeuticexercise.Assessmen t:The following is the goal status:As of last session on 10/07/2016. Patient was to return to MD for furtherrecommendation and has not returned for further PT.Whiting in home exercise program. PARTIALLY METPatient will decrease pain rating by 2 points to meet minimal clinicalimportant difference for numeric pain rating scale.NOT METPatient will increase strength of right lower extremity to 4+/5 to allowfor return to prior functional status, perform ADLs and negotiate stairs.PARTIALLY METPatient will increase flexibility of right hamstrings by 10 degrees,negative IT band to restore normal mechanics and decrease pain. PARTIALLYMETPerform squatting, stairs, standing and walking> 3 hours with decreasedreport of symptoms/pain in 8 weeks. MET FOR SQUATTINGDemonstrate improvement on functional score: Patient will increase his/herscore on the Lower Extremity Functional Scale by at least 9 points toindicate a Minimal Clinical Important Difference. UNABLE TO ASSESSImprove postural awareness with squatting, stairs, and walking. PARTIALLYMETReciprocal stair negotiation. NOT METPatient will increase balance to 30 seconds for single limb stance onright lower extemity. MET?Based on most recent progress report, patient was progressing slower thanexpected toward functional goals based on pain levels and documentedsubjective information on progressReason for Discontinuation of Care: Patient has not returned to therapy orscheduled additional follow-up appointments.Tamiko Shields, PT [facility] HISTORY PHYSICALon 7 HISTORY PHYSICAL HNO ID: [id number] thor: Diego Muller) MirzaService: Pain ManagementAuthor Type: Physician AssistantType: HANDPFiled: 12/11/2016 2:16 PMNote Text:PROCEDURAL SEDATION HISTORY AND PHYSICAL EXAMSERVICE DATE: 12/11/2016SERVICE TIME: 2:13 PMSUBJECTIVEHPI: This is a 21 year old female who presents with Chronic right kneepain for 2 + years. Pt denies trauma or injury. Pain is described as aconstant 5/10 pressure at the knee joint.PAST ANESTHESIA HISTORY: No history of adverse eventPAST MEDICAL HISTORYDiagnosis Date- NEGATIVE MEDICAL HISTORYPAST SURGICAL KXJOBGE71/2017: DANDC (MISSED AB 1ST TRIMESTER)No date: NONEPrior to Admission medications as of 12/11/16 1355Medication Sig Last Dose TakingXULANE 150-35 mcg/24 hr Apply 150 mcg as directed once each week.150mcg-35mcg 11/10/2016 YestraMADol (ULTRAM) 50 mg tablet Take 1 tablet by mouth every 6 hours asneeded for Pain. 11/26/2016 YesALLERGIESNo Known AllergiesOBJECTIVEPHYSICAL EXAM: The remainder of the physical exam is noncontributory.AIRWAY: Airway Visualization of Uvula: YesMouth opening greater than 2 fingerbreadths: YesNeck Full Range of Motion: YesLUNGS: Lungs clear to auscultation, Good diaphragmatic excursionCARDIAC: Normal S1 and S2; no rubs, murmurs, or gallopsASSESSMENT/PLANASA Class: ASA Class:: Normal healthy patientActive Problems: * No active hospital problems. *Provisional Diagnosis/Treatment Plan: Chronic right knee pain / Plan:Block peripheral-right genicular NBSEDATION GOAL: ModerateSIGNATURE: Diego Blue PA-C PATIENT NAME: Saima YanceyDATE: December 11, 2016 : 2:13 PM PAGER: [facility] OPERATIVE NOon 12-11-2016 OPERATIVE NO HNO ID: [id number] thor: Agapito Bearervice: Pain ManagementAuthor Type: PhysicianType: Operative ReportFiled: 12/11/2016 3:24 PMNote Text:Patient Name Medical Record #Saima Yancey [id number] of : 1995Admit Date: December 11, 2016Sex / Age: female/21 year oldDischarge Date: December 11, 2016Date: December 11, 2016Attending Physician: GAVINO Alvarezervice: OPERATIVE REPORTLOG ID: [id number]/Procedure Date: 12/11/2016Incision/Procedure Start Time: 3:12 PMIncision Close/Procedure End Time: 3:19 PMPREOPERATIVE DIAGNOSIS: Osteoartharitis right KneePOSTOPERATIVE DIAGNOSIS: SameNAME OF OPERATION: right Genicular nerve block under fluoroscopicguidance.SURGEON: Agapito Torres MDASSISTANT: None.ANESTHESIA: Moderate sedation and local anesthesia using: Fentanyl 100mcg IV and Versed 2 mg IVINFORMED CONSENT: Risks, benefits and alternatives were discussed with thepatient in detail. She verbalized understanding and agreed to proceed.PROCEDURE:The patient was brought to the fluoroscopy suite. IV access was obtainedprior to the procedure. The patient was positioned supine on the bed.Continuous hemodynamic monitoring was initiated including blood pressure,EKG, and pulse oximetry. IV sedation was administered incrementally toallow the patient to remain comfortable and conversant throughout theprocedure. The area of the right knee was prepped with povidone-iodinethree times and draped in a sterile fashion. On the right knee thesuperior medial and lateral epicondyle of the femur as well as the distalaspect of the medial tibial epicondyle was identified as the target zonefor the injection using an AP view. Each of these regions was marked andthe skin and subcutaneous tissue of these regions were infiltrated with 2ml of lidocaine 0.5% local anesthesia prior to inserting a 22 gauge spinalneedle. The needles were advanced using fluoroscopic guidance untilreaching the mid level of the femur and tibia confirmed with a lateralview. After negative aspiration, 2 mL of a bupivacaine 0.5% and Popudvw00.33 mg was injected at each of the sites. Needle was then removed andbleeding was nil. Sterile dressing was applied. There were nocomplications. No specimens collected. She tolerated the procedure well.She was then taken to the Post-block Recovery Room in stable conditionComplications: None.Estimated Blood Loss: None.Drains: None.Implantable Device: None.Specimen: None.I, Agapito Torres MD, performed the entire procedure.ASSESSMENT AND PLAN:Saima Yancey is status post Right genicular nerve block. She did verywell without any apparent complications. She is to return to clinic in oneweek for follow up. Postoperative instructions were given, she voicedunderstanding. She was discharged to home in stable condition.Myke Alvarez 2016 [facility] Visit ([facility]) -SAIMA YANCEY ([id number]) 1995 [facility] Time Provider Department11/18/16 10:20 AM AGAPITO TORRES [facility] During your visit today, we recorded the following information about you: Pulse Blood pressure 77/minute 117/73Agapito Torres MD 11/18/2016 2:12 PM [facility] Pain Management Initial EvaluationJuly 2016 - 11:03 AMThis appointment was requested by Self, for my medical opinion regarding? theevaluation and management of the patient's Saima Yancey problems, and myfinal recommendations will be communicated to the requesting health careprovider by way of the shared medical record for internal providers or lettervia the [employer] for external providers.SUBJECTIVE:Saima Yancey a 21 year old [facility], accompanied by self only, was referred by Jordi Jackson MD, mandeep initial evaluation for right knee pain.The pain is located in the right kneeDistribution: right kneeStarted 2.5 years ago, was not directly related to injury/trauma, and symptomshave been persistent.Characterized as aching, burning, numbness, severe, sharp, soreness, shooting,stabbing, stiff, tenderness and throbbingCurrently the pain is a rated at a 5 on a scale of 0-10.Worst pain score is rated at 9 on a scale of 0-10.Best pain score is rated at 2 on a scale of 0-10.Aggravated by standing, lifting and walking.Mitigated by unable to pinpoint positions/factors that are mitigating.Current treatments and response:Tramadol 50mg Q6H PRN, took 1 tablet yesterday and is now out, takes only asneeded, has not had it filled in over a yearResponse to previous treatments:Naproxen, Mobic, Tylenol, Advil, Aspirin, does not helpCortisone injections did not helpPhysical therapy did not helpAlcohol Abuse - NoDrug Abuse - NoCurrent Anticoagulant Therapy: NoSleep Disturbance: Yes: Difficulty falling asleep. and Difficulty stayingasleep.PAST MEDICAL HISTORYDiagnosis Date- NEGATIVE MEDICAL HISTORYPAST SURGICAL [id number]/2017: DANDamp;C (MISSED AB 1ST TRIMESTER)No date: NONESocial History Marital status: Single Spouse name: Years of education: Number of children:Social History Main Topics Smoking status: Never Smoker Smokeless status: Never Used Alcohol use: No Drug use: No Sexual activity: Yes Partners with: Male control/protection: NoneFAMILY HISTORY NoneALLERGIESNo Known AllergiesCurrent Outpatient Prescriptions:traMADol (ULTRAM) 50 mg tablet Take 1 tablet by mouth every 6 hours as neededfor Pain.diclofenac sodium (PENNSAID) 20 mg/gram /actuation(2 %) sopm Apply 1 Bottle toaffected area twice daily as needed.indomethacin (INDOCIN) 25 mg capsule Take 1 capsule by mouth three times dailywith meals.meloxicam (MOBIC) 7.5 mg tablet Take once daily, may take up to twice, asneeded for pain/inflammation. Do not take with other NSAIDs.diclofenac sodium (VOLTAREN) 1 % topical gel Apply small amount to affectedarea (up to 2 grams) 2-4 times/day as needed for pain/inflammation. Do not usewith other NSAIDs.ibuprofen (MOTRIN) 600 mg tablet Take 1 tablet by mouth every 6 hours asneeded.methylergonovine (METHERGINE) 0.2 mg tablet Take 1 tablet by mouth every 6hours. multivitamin 90-1-50 mg tab Take 1 tablet by mouth once daily.No current facility-administered medications for this visit.Review of Symptoms:GENERAL:No weight loss, malaise or fevers., SEE HPIHEENT:Negative for frequent or significant headaches, No changes in hearing orvision, no nose bleeds or other nasal problemsNECK:Negative for lumps, goiter, pain and significant neck swellingRESPIRATORY: Negative for cough, wheezing or shortness of breath.CARDIOVASCULAR: Negative for chest pain, leg swelling and palpitationsGASTROINTESTINAL: No nausea, vomiting, or diarrhea and Negative for abdominaldiscomfort, blood in stools or black stools or change in bowel habitsGENITOURINARY: No history of dysuria, frequency or incontinenceGYN: Negative for abnormal vaginal bleeding, abnormal vaginal dischargeMUSCULOSKELETAL: Positive for joint pain: right kneeNEUROLOGIC:Positive for numbness or tingling of the right footSKIN:Negative for lesions, rash, and itching.PSYCHIATRIC: Positive for sleep disturbance:HEMATOLOGIC/LYMPH ATIC/IMMUNOLOGIC:Negative for prolonged bleeding, bruisingeasily or swollen nodes.ENDOCRINE: Negative for cold or heat intolerance, polyuria, polydipsia andgoiter.The remainder of the ROS was negative.PREVIOUS TREATMENTS LASTING SIX WEEKS IN THE LAST SIX MONTHSActive conservative therapy lasting 6 weeks in the last six months (see below) 1. Physical therapy: yes 2. Home exercise program after PT: yes 3. Occupational therapy: No 4. A physician supervised home exercise program (HEP): No 5. Spinning Machine Tender: NoPassive conservative therapy lasting 6 weeks in the last six months (see below) 1. Medical devises: No 2. Acupuncture: No 3. Tens unit: No 4. Prescription pain medication: No 5. NSAIDS: YesDo you feel safe at home? YesRisk assessment at risk due to fall:Ivana Palumbo 2016 Time: 11:14 AMThe subjective information, including chief complaint, past medical history andreview of systems, was explored in detail with the patient and edited as neededand is complete.Agapito Torres M.D.November 18, 2016Physical Examination:BP 117/73 Pulse 77 SpO2 98% LMP 04/21/2016General: well appearing, alert, in no acute distressSkin: skin color, texture, turgor normal, no rashes or lesionsHEENT: normocephalic, atraumatic, sclera non-ictericCardiovascular: Regular rate and rhythmLungs: Respirations even and non-labored.GI: Soft, non-tender, non-distended.: No tenderness with palpation over the renal anglesMusculoskeletal: Back: No pain on palpation of the lumbar spine, facets or SI Joints Extremities: Left knee: no tenderness with palpation over the left knee Right knee: tenderness with palpation Full ROM with pain Pain with palpation over the right superiorlateral genicular nerve No pain with ROMNeurological: Mental Status: alert and oriented x 3 Motor Strength: Motor strength and tone are 5/5 all throughout. Gait: Normal.Imagin10/26/16 MRI Right KneeIMPRESSION: No acute internal derangement. Remote injury of the fibularcollateral ligament.OARRS website checked and validated. No controlled substance prescriptions werereported.- 11/18/2016 by ANNABELLE Cantu ANDyair; ASSESSMENT: James Jones PA-C was present during the interviewand physical exam.Saima Yancey is a 21 year old female who presents for initial evaluationfor right knee pain stated 2.5 years ago.She reports constant pain, which she describes as aching, burning, severe,sharp and stabbing. She rates her pain at 5/10 currently and ranges from2-9/10. The pain is aggravated by sitting for a period, standing, . The pain ismitigated by ice and heat but only works while this is applied.She is currently taking Tramadol 50 mg as needed reports takes 0-3 tablets aday and states she has about 5 tablet leftover - she reports this is from ascript she has left over from last year. She reports she has tried Tylenol,Mobic, Advil and ASA which were ineffective. She reports Voltaren gel wasdenied by her insurance.She was referred by Ortho. S/P cortisone injection in the knee which did nothelp with the pain.She denies alcohol or tobacco use.On exam there is tenderness over the right knee - pain greatest over thelateral aspect.(M25.561, G89.29) Chronic pain of right knee (primary encounter diagnosis)PLAN:1) Recommend right knee genicular nerve block x 12) Patient advised in specific detail about potential benefits of opioids alongwith risks including, but not limited to, dependency, addiction, endocrinechanges, anxiety, depression, insomnia, respiratory depression and .Caution advised regarding the use of medication and specific mention maderegarding not to drive or operate heavy machinery if feeling side effects fromthis medication. Patient expressed an understanding about this medication andthese particular concerns.Advised the patient that narcotics are not recommended for chronicnon-malignant pain - recommend weaning off of narcotics.3) Recommend use of heat to the area4) Recommend use of OTC Salon Pas Gel5) RTC 4 weeks after the injectionThe above plan and management options were discussed at length with patient.Patient is in agreement with the above and verbalized understanding.Thank you Dr. Dr. Jordi Jackson for allowing me to participate [facility].Agapito Torres M.D.November 18, 2016Referring Provider: JORDI JACKSON [[id number]]Allergies As of Date: 11/18/2016(No Known Allergies)Date Reviewed: 11/18/2016Reviewed by: Shanice Moore Ma - Fully AssessedReason for Visit: Right Knee Pain [1209]Primary Visit Diagnosis:Chronic pain of right knee [M25.561, G89.29]Prescriptions as of 11/18/2016 Sig: TRAMADOL 50 MG TABLET Take 1 tablet by mouth every *Problem List As Of Date 11/18/2016 Noted Resolved Patellofemoral stress syndrome of right knee [M*INVALID FOR* Confirm cardiac activity using ultrasound*INVALID FOR* Missed [O02.1] INVALID FOR* NO SHOW INVALID FOR* Decreased ROM of lower extremity [M25.669] INVALID FOR* Muscle weakness [M62.81] INVALID FOR* Right knee pain [M25.561] INVALID FOR*Medications Discontinued During This Encounter multivitamin 90-1-50 mg tab 90 t* 0 06/04/2016 11/18/2016 Class: Print RX Route: ORAL Sig: Take 1 tablet by mouth once daily. Disc: Reason for discontinue is not on file. methylergonovine (METHERGINE) 0.2 mg* 3 ta* 0 07/15/2016 11/18/2016 Class: Print RX Route: ORAL Sig: Take 1 tablet by mouth every 6 hours. Disc: Reason for discontinue is not on file. ibuprofen (MOTRIN) 600 mg tablet 20 t* 0 07/15/2016 11/18/2016 Class: Print RX Route: ORAL Sig: Take 1 tablet by mouth every 6 hours as needed. Disc: Reason for discontinue is not on file. meloxicam (MOBIC) 7.5 mg tablet 20 t* 0 10/17/2016 11/18/2016 Sig: Take once daily, may take up to twice, as needed for pain/inflammation. Do not take with other NSAIDs. Disc: Reason for discontinue is not on file. indomethacin (INDOCIN) 25 mg capsule 30 c* 1 11/01/2016 11/18/2016 Route: ORAL Sig: Take 1 capsule by mouth three times daily with meals. Disc: Reason for discontinue is not on file. diclofenac sodium (VOLTAREN) 1 % top* 100 g 1 08/27/2016 11/18/2016 Sig: Apply small amount to affected area (up to 2 grams) 2-4 times/day as needed for pain/inflammation. Do not use with other NSAIDs. Disc: Reason for discontinue is not on file. diclofenac sodium (PENNSAID) 20 mg/g* 1 Ke[place]* 1 11/01/2016 11/18/2016 Route: TOPICAL Sig: Apply 1 Bottle to affected area twice daily as needed. Disc: Reason for discontinue is not on file. Status:Closed by AGAPITO TORRES MD on 11/18/16 Normal [facility] HOSPon 11-18-2016 HOSP Patient:Emilee Yancey by LMRN: Height:5' 7 (1.702 m)Weight:217 lb (98.431 kg)Outpatient Medications as of 12/11/16:XULANE 150-35 mcg/24 hrtraMADol (ULTRAM) 50 mg tabletAdmission/Clinic Administered Medications as of 12/11/16:lactated ringers infusionProblem List:Patellofemoral stress syndrome of right knee [M22.2X1]Confirm cardiac activity using ultrasound [Z36]Missed [O02.1]NO SHOW []Decreased ROM of lower extremity [M25.669]Muscle weakness [M62.81]Right knee pain [M25.561]Allergies:No Known AllergiesDate Verified:12/11/16Lab ValuesNo results within the last 30 days for the following basenames: K,HCTProgress Notes ([facility]):Agapito Torres MD 11/18/2016 2:12 PM Signed[facility] Initial EvaluationJuly 2016 - 11:03 AMThis appointment was requested by Self, for my medical opinion regarding? theevaluation and management of the patient's Saima Yancey problems, and myfinal recommendations will be communicated to the requesting health careprovider by way of the shared medical record for internal providers or lettervia the [employer] for external providers.SUBJECTIVE:Saima Yancey a 21 year [facility], accompanied by self only, was referred by Jordi Jackson MD, mandeep initial evaluation for right knee pain.The pain is located in the right kneeDistribution: right kneeStarted 2.5 years ago, was not directly related to injury/trauma, and symptomshave been persistent.Characterized as aching, burning, numbness, severe, sharp, soreness, shooting,stabbing, stiff, tenderness and throbbingCurrently the pain is a rated at a 5 on a scale of 0-10.Worst pain score is rated at 9 on a scale of 0-10.Best pain score is rated at 2 on a scale of 0-10.Aggravated by standing, lifting and walking.Mitigated by unable to pinpoint positions/factors that are mitigating.Current treatments and response:Tramadol 50mg Q6H PRN, took 1 tablet yesterday and is now out, takes only asneeded, has not had it filled in over a yearResponse to previous treatments:Naproxen, Mobic, Tylenol, Advil, Aspirin, does not helpCortisone injections did not helpPhysical therapy did not helpAlcohol Abuse - NoDrug Abuse - NoCurrent Anticoagulant Therapy: NoSleep Disturbance: Yes: Difficulty falling asleep. and Difficulty stayingasleep.PAST MEDICAL HISTORYDiagnosis Date- NEGATIVE MEDICAL HISTORYPAST SURGICAL HXIPADO11/2017: DANDC (MISSED AB 1ST TRIMESTER)No date: NONESocial History Marital status: Single Spouse name: Years of education: Number of children:Social History Main Topics Smoking status: Never Smoker Smokeless status: Never Used Alcohol use: No Drug use: No Sexual activity: Yes Partners with: Male control/protection: NoneFAMILY HISTORY NoneALLERGIESNo Known AllergiesCurrent Outpatient Prescriptions:traMADol (ULTRAM) 50 mg tablet Take 1 tablet by mouth every 6 hours as neededfor Pain.diclofenac sodium (PENNSAID) 20 mg/gram /actuation(2 %) sopm Apply 1 Bottle toaffected area twice daily as needed.indomethacin (INDOCIN) 25 mg capsule Take 1 capsule by mouth three times dailywith meals.meloxicam (MOBIC) 7.5 mg tablet Take once daily, may take up to twice, as neededfor pain/inflammation. Do not take with other NSAIDs.diclofenac sodium (VOLTAREN) 1 % topical gel Apply small amount to affected area(up to 2 grams) 2-4 times/day as needed for pain/inflammation. Do not use withother NSAIDs.ibuprofen (MOTRIN) 600 mg tablet Take 1 tablet by mouth every 6 hours as needed.methylergonovine (METHERGINE) 0.2 mg tablet Take 1 tablet by mouth every 6hours. multivitamin 90-1-50 mg tab Take 1 tablet by mouth once daily.No current facility-administered medications for this visit.Review of Symptoms:GENERAL:No weight loss, malaise or fevers., SEE HPIHEENT:Negative for frequent or significant headaches, No changes in hearing orvision, no nose bleeds or other nasal problemsNECK:Negative for lumps, goiter, pain and significant neck swellingRESPIRATORY: Negative for cough, wheezing or shortness of breath.CARDIOVASCULAR: Negative for chest pain, leg swelling and palpitationsGASTROINTESTINAL: No nausea, vomiting, or diarrhea and Negative for abdominaldiscomfort, blood in stools or black stools or change in bowel habitsGENITOURINARY: No history of dysuria, frequency or incontinenceGYN: Negative for abnormal vaginal bleeding, abnormal vaginal dischargeMUSCULOSKELETAL: Positive for joint pain: right kneeNEUROLOGIC:Positive for numbness or tingling of the right footSKIN:Negative for lesions, rash, and itching.PSYCHIATRIC: Positive for sleep disturbance:HEMATOLOGIC/LYMPH ATIC/IMMUNOLOGIC:Negative for prolonged bleeding, bruisingeasily or swollen nodes.ENDOCRINE: Negative for cold or heat intolerance, polyuria, polydipsia andgoiter.The remainder of the ROS was negative.PREVIOUS TREATMENTS LASTING SIX WEEKS IN THE LAST SIX MONTHSActive conservative therapy lasting 6 weeks in the last six months (see below) 1. Physical therapy: yes 2. Home exercise program after PT: yes 3. Occupational therapy: No 4. A physician supervised home exercise program (HEP): No 5. Spinning Machine Tender: NoPassive conservative therapy lasting 6 weeks in the last six months (see below) 1. Medical devises: No 2. Acupuncture: No 3. Tens unit: No 4. Prescription pain medication: No 5. NSAIDS: YesDo you feel safe at home? YesRisk assessment at risk due to fall:Ivana Palumbo 2016 Time: 11:14 AMThe subjective information, including chief complaint, past medical history andreview of systems, was explored in detail with the patient and edited as neededand is complete.Agapito Torres M.D.November 18, 2016Physical Examination:BP 117/73 Pulse 77 SpO2 98% LMP 04/21/2016General: well appearing, alert, in no acute distressSkin: skin color, texture, turgor normal, no rashes or lesionsHEENT: normocephalic, atraumatic, sclera non-ictericCardiovascular: Regular rate and rhythmLungs: Respirations even and non-labored.GI: Soft, non-tender, non-distended.: No tenderness with palpation over the renal anglesMusculoskeletal: Back: No pain on palpation of the lumbar spine, facets or SI Joints Extremities: Left knee: no tenderness with palpation over the left knee Right knee: tenderness with palpation Full ROM with pain Pain with palpation over the right superiorlateral genicular nerve No pain with ROMNeurological: Mental Status: alert and oriented x 3 Motor Strength: Motor strength and tone are 5/5 all throughout. Gait: Normal.Imagin10/26/16 MRI Right KneeIMPRESSION: No acute internal derangement. Remote injury of the fibularcollateral ligament.OARRS website checked and validated. No controlled substance prescriptions werereported.- 11/18/2016 by ANNABELLE Cantu AND ASSESSMENT: James Jones PA-C was present during the interview andphysical exam.Saima Yancey is a 21 year old female who presents for initial evaluation forright knee pain stated 2.5 years ago.She reports constant pain, which she describes as aching, burning, severe, sharpand stabbing. She rates her pain at 5/10 currently and ranges from 2-9/10. Thepain is aggravated by sitting for a period, standing, . The pain is mitigated byice and heat but only works while this is applied.She is currently taking Tramadol 50 mg as needed reports takes 0-3 tablets a dayand states she has about 5 tablet leftover - she reports this is from a scriptshe has left over from last year. She reports she has tried Tylenol, Mobic,Advil and ASA which were ineffective. She reports Voltaren gel was denied by herinsurance.She was referred by Ortho. S/P cortisone injection in the knee which did nothelp with the pain.She denies alcohol or tobacco use.On exam there is tenderness over the right knee - pain greatest over the lateralaspect.(M25.561, G89.29) Chronic pain of right knee (primary encounter diagnosis)PLAN:1) Recommend right knee genicular nerve block x 12) Patient advised in specific detail about potential benefits of opioids alongwith risks including, but not limited to, dependency, addiction, endocrinechanges, anxiety, depression, insomnia, respiratory depression and .Caution advised regarding the use of medication and specific mention maderegarding not to drive or operate heavy machinery if feeling side effects fromthis medication. Patient expressed an understanding about this medication andthese particular concerns.Advised the patient that narcotics are not recommended for chronic non-malignantpain - recommend weaning off of narcotics.3) Recommend use of heat to the area4) Recommend use of OTC Salon Pas Gel5) RTC 4 weeks after the injectionThe above plan and management options were discussed at length with patient.Patient is in agreement with the above and verbalized understanding.Thank you Dr. Dr. Jordi Jackson for allowing me to participate in Saima Fernandes's care.Agapito Torres M.D.November 18, 2016Previous VersionProgress Notes ([facility]):Nick Aime Rao 11/11/2016 9:57 AM SignedI called Saima Yancey on November 11, 2016 at 9:55 AM. Left message for patientto call the office. new patient letter sent out also.She was advised of the following:Dear Mr./Mrs/Ms. yancey, This is a follow up phone call regarding yourappointment with Dr. torres. [facility] at arrival time 10:20am. Please bring your outsiderecords, lab work, and a CD with copies of your imaging studies to yourappointment. Also please recall that our physicians will not take overmedications.There will be communication to your referring physician regarding the plan ofcare. You will need to make sure you have enough pain medications to last untilyour follow up appointment with your current prescribing physician. Please tellme what you understand about your appointment with the Pain ManagementDepartment and your pain medications. (Allow the patient to respond.)Nick Kaur Deepali 2016[place] Kaur Maira 11/14/2016 9:41 AM SignedAttempted to call patient for a second time left message, Letter sent out on11/11/16.Nick Aime Rao [facility] PROGRESSon 11-18-2016 PROGRESS HNO ID: [id number] thor: Agapito Bearervice: (none)Author Type: PhysicianType: Progress NotesFiled: 11/18/2016 2:12 PMNote Text:[facility] Initial EvaluationJuly 2016 - 11:03 AMThis appointment was requested by Self, for my medical opinion regarding?the evaluation and management of the patient's Saima Yancey problems,and my final recommendations will be communicated to the requesting healthcare provider by way of the shared medical record for internal providersor letter via the [employer] for external providers.SUBJECTIVE:Saima Yancey a 21 year old [facility], accompanied by self only, was referred by Jordi Mcqueen MD, for an initial evaluation for right knee pain.The pain is located in the right kneeDistribution: right kneeStarted 2.5 years ago, was not directly related to injury/trauma, andsymptoms have been persistent.Characterized as aching, burning, numbness, severe, sharp, soreness,shooting, stabbing, stiff, tenderness and throbbingCurrently the pain is a rated at a 5 on a scale of 0-10.Worst pain score is rated at 9 on a scale of 0-10.Best pain score is rated at 2 on a scale of 0-10.Aggravated by standing, lifting and walking.Mitigated by unable to pinpoint positions/factors that are mitigating.Current treatments and response:Tramadol 50mg Q6H PRN, took 1 tablet yesterday and is now out, takes onlyas needed, has not had it filled in over a yearResponse to previous treatments:Naproxen, Mobic, Tylenol, Advil, Aspirin, does not helpCortisone injections did not helpPhysical therapy did not helpAlcohol Abuse - NoDrug Abuse - NoCurrent Anticoagulant Therapy: NoSleep Disturbance: Yes: Difficulty falling asleep. and Difficulty stayingasleep.PAST MEDICAL HISTORYDiagnosis Date- NEGATIVE MEDICAL HISTORYPAST SURGICAL [id number]/2017: DANDC (MISSED AB 1ST TRIMESTER)No date: NONESocial History Marital status: Single Spouse name: Years of education: Number of children:Social History Main Topics Smoking status: Never Smoker Smokeless status: Never Used Alcohol use: No Drug use: No Sexual activity: Yes Partners with: Male control/protection: NoneFAMILY HISTORY NoneALLERGIESNo Known AllergiesCurrent Outpatient Prescriptions:traMADol (ULTRAM) 50 mg tablet Take 1 tablet by mouth every 6 hours asneeded for Pain.diclofenac sodium (PENNSAID) 20 mg/gram /actuation(2 %) sopm Apply 1Bottle to affected area twice daily as needed.indomethacin (INDOCIN) 25 mg capsule Take 1 capsule by mouth three timesdaily with meals.meloxicam (MOBIC) 7.5 mg tablet Take once daily, may take up to twice, asneeded for pain/inflammation. Do not take with other NSAIDs.diclofenac sodium (VOLTAREN) 1 % topical gel Apply small amount toaffected area (up to 2 grams) 2-4 times/day as needed forpain/inflammation. Do not use with other NSAIDs.ibuprofen (MOTRIN) 600 mg tablet Take 1 tablet by mouth every 6 hours asneeded.methylergonovine (METHERGINE) 0.2 mg tablet Take 1 tablet by mouth every 6hours. multivitamin 90-1-50 mg tab Take 1 tablet by mouth once daily.No current facility-administered medications for this visit.Review of Symptoms:GENERAL:No weight loss, malaise or fevers., SEE HPIHEENT:Negative for frequent or significant headaches, No changes inhearing or vision, no nose bleeds or other nasal problemsNECK:Negative for lumps, goiter, pain and significant neck swellingRESPIRATORY: Negative for cough, wheezing or shortness of breath.CARDIOVASCULAR: Negative for chest pain, leg swelling and palpitationsGASTROINTESTINAL: No nausea, vomiting, or diarrhea and Negative forabdominal discomfort, blood in stools or black stools or change in bowelhabitsGENITOURINARY: No history of dysuria, frequency or incontinenceGYN: Negative for abnormal vaginal bleeding, abnormal vaginal dischargeMUSCULOSKELETAL: Positive for joint pain: right kneeNEUROLOGIC:Positive for numbness or tingling of the right footSKIN:Negative for lesions, rash, and itching.PSYCHIATRIC: Positive for sleep disturbance:HEMATOLOGIC/LYMPH ATIC/IMMUNOLOGIC:Negative for prolonged bleeding,bruising easily or swollen nodes.ENDOCRINE: Negative for cold or heat intolerance, polyuria, polydipsia andgoiter.The remainder of the ROS was negative.PREVIOUS TREATMENTS LASTING SIX WEEKS IN THE LAST SIX MONTHSActive conservative therapy lasting 6 weeks in the last six months (seebelow) 1. Physical therapy: yes 2. Home exercise program after PT: yes 3. Occupational therapy: No 4. A physician supervised home exercise program (HEP): No 5. Spinning Machine Tender: NoPassive conservative therapy lasting 6 weeks in the last six months (seebelow) 1. Medical devises: No 2. Acupuncture: No 3. Tens unit: No 4. Prescription pain medication: No 5. NSAIDS: YesDo you feel safe at home? YesRisk assessment at risk due to fall:Ivana Palumbo 2016 Time: 11:14 AMThe subjective information, including chief complaint, past medicalhistory and review of systems, was explored in detail with the patient andedited as needed and is complete.Agapito Torres M.D.November 18, 2016Physical Examination:BP 117/73 Pulse 77 SpO2 98% LMP 04/21/2016General: well appearing, alert, in no acute distressSkin: skin color, texture, turgor normal, no rashes or lesionsHEENT: normocephalic, atraumatic, sclera non-ictericCardiovascular: Regular rate and rhythmLungs: Respirations even and non-labored.GI: Soft, non-tender, non-distended.: No tenderness with palpation over the renal anglesMusculoskeletal: Back: No pain on palpation of the lumbar spine, facets or SI Joints Extremities: Left knee: no tenderness with palpation over the left knee Right knee: tenderness with palpation Full ROM with pain Pain with palpation over the right superiorlateral genicularnerve No pain with ROMNeurological: Mental Status: alert and oriented x 3 Motor Strength: Motor strength and tone are 5/5 all throughout. Gait: Normal.Imagin10/26/16 MRI Right KneeIMPRESSION: No acute internal derangement. Remote injury of the fibularcollateral ligament.OARRS website checked and validated. No controlled substance prescriptionswere reported.- 11/18/2016 by ANNABELLE Cantu AND ASSESSMENT: James Jones PA-C was present during the interviewand physical exam.Saima Yancey is a 21 year old female who presents for initialevaluation for right knee pain stated 2.5 years ago.She reports constant pain, which she describes as aching, burning, severe,sharp and stabbing. She rates her pain at 5/10 currently and ranges from2-9/10. The pain is aggravated by sitting for a period, standing, . Thepain is mitigated by ice and heat but only works while this is applied.She is currently taking Tramadol 50 mg as needed reports takes 0-3 tabletsa day and states she has about 5 tablet leftover - she reports this isfrom a script she has left over from last year. She reports she has triedTylenol, Mobic, Advil and ASA which were ineffective. She reports Voltarengel was denied by her insurance.She was referred by Ortho. S/P cortisone injection in the knee which didnot help with the pain.She denies alcohol or tobacco use.On exam there is tenderness over the right knee - pain greatest over thelateral aspect.(M25.561, G89.29) Chronic pain of right knee (primary encounterdiagnosis)PLAN:1) Recommend right knee genicular nerve block x 12) Patient advised in specific detail about potential benefits of opioidsalong with risks including, but not limited to, dependency, addiction,endocrine changes, anxiety, depression, insomnia, respiratory depressionand . Caution advised regarding the use of medication and specificmention made regarding not to drive or operate heavy machinery if feelingside effects from this medication. Patient expressed an understandingabout this medication and these particular concerns.Advised the patient that narcotics are not recommended for chronicnon-malignant pain - recommend weaning off of narcotics.3) Recommend use of heat to the area4) Recommend use of OTC Salon Pas Gel5) RTC 4 weeks after the injectionThe above plan and management options were discussed at length withpatient. Patient is in agreement with the above and verbalizedunderstanding.Thank you Dr. Dr. Jordi Jackson for allowing me to participate in Jeniffer Yancey's care.Agapito Torres M.D.November 18, 2016 [facility] 11-11-2016 [facility] Telephone ([facility]) -SAIMA YANCEY ([id number]) [address] [facility] Time Provider Department11/11/16 AGAPITO TORRES [facility] During your visit today, we recorded the following information about you:Nick Kaur Ma 11/11/2016 9:57 AM SignedI called Saima Yancey on November 11, 2016 at 9:55 AM. Left message for patientto call the office. new patient letter sent out also.She was advised of the following:Dear Mr./Mrs/Ms. naye, This is a follow up phone call regarding yourappointment with Dr. torres. You are scheduled to see Dr. torres int PMD site on date 10/19/16 at arrival time 10:20am. Please bring youroutside records, lab work, and a CD with copies of your imaging studies to yourappointment. Also please recall that our physicians will not take overmedications.There will be communication to your referring physician regarding the plan ofcare. You will need to make sure you have enough pain medications to lastuntil your follow up appointment with your current prescribing physician.Please tell me what you understand about your appointment with the PainManagement Department and your pain medications. (Allow the patient to respond.)Nick Palumbo 2016Nick Kaur Ma 11/14/2016 9:41 AM SignedAttempted to call patient for a second time left message, Letter sent out on11/11/16.Nick Kaur MaAllergies As of Date: 11/11/2016(No Known Allergies)Date Reviewed: 11/06/2016Reviewed by: Ronda Barajas AssessedReniesha for Visit: Appointment [[id number]]Prescriptions as of 11/11/2016 Sig: DICLOFENAC 20 MG/GRAM/ACTUATI* Apply 1 Bottle to affected ar* Patient not taking: Reported on 11/06/2016 INDOMETHACIN 25 MG CAPSULE Take 1 capsule by mouth three* Patient not taking: Reported on 11/06/2016 TRAMADOL 50 MG TABLET Take 1 tablet by mouth every * MELOXICAM 7.5 MG TABLET Take once daily, may take up * Patient not taking: Reported on 11/06/2016 DICLOFENAC 1 % TOPICAL GEL Apply small amount to affecte* IBUPROFEN 600 MG TABLET Take 1 tablet by mouth every * METHYLERGONOVINE 0.2 MG TABLET Take 1 tablet by mouth every * VITS NO.15-IRON 90 M* Take 1 tablet by mouth once d*Problem List As Of Date 11/11/2016 Noted Resolved Patellofemoral stress syndrome of right knee [M*INVALID FOR* Confirm cardiac activity using ultrasound*INVALID FOR* Missed [O02.1] INVALID FOR* NO SHOW INVALID FOR* Decreased ROM of lower extremity [M25.669] INVALID FOR* Muscle weakness [M62.81] INVALID FOR* Right knee pain [M25.561] INVALID FOR*Letter [facility] Flhpwcrmly[address], [address], [place] [address]Cgvjss: [phone]: [phone] 2016Dear Saima Roque Naye,This is a reminder letter regarding your appointment with Melissa Altman M.D. at [facility] Pain Management Department on 10/19/16 at 9:40am .Please arrive 20 minutes prior to your appointment to fill out yourpaperwork.Please arrange to have all of your outside medical records and imagingstudies (including the CD's) sent to the Pain Management Department inadvance of your appointment for review. This will allow the doctor toevaluate you without his/her needing to re-order tests that you may havealready had done. To assure access to the information also bring copies withyou to your appointment. If you have previously been seen by a [facility] provider you will need to have a documented release ofcare prior to your appointment.The purpose of your appointment with the pain management physician is for adiagnostic evaluation of your pain and to recommend a plan of care. This careplan will be shared with the doctor who referred you to the Pain ManagementDepartment and your primary care physician.Our department emphasizes comprehensive multimodal treatment approaches andnon-narcotic medications. The Pain Management Department will not take overprescribing your medications. Please make sure that you have enough of yourpain medications to last until you are able to follow up with your currentprescribing physician.Thank you for you cooperation,[facility] Pain Management TeamEncounter Number: [id number] Status:Closed by NICK KAUR MA on 11/11/16 Normal [facility] CNOVon 11-06-2016 CNOV Office Visit (ORMIDD) -SAIMA YANCEY ([id number]) 1995 FDate Time Provider Department11/06/16 1:20 PM JORDI JACKSON During your visit today, we recorded the following information about you:Jordi Jackson MD 11/06/2016 9:08 PM SignedInterval History: Saima Yancey returns today for evaluation of right kneepain . Chief complaint is continued right knee pain. She was seen by who did not think that high-grade dissection would be beneficial ordiagnostic. She is very frustrated as she has been dealing with this knee forquite some time. She has been seen by multiple physicians. She currently istaking Ultram that was prescribed by another doctor. As reminder, she movedhere recently from the outside.Physical examination: This is a well-appearing, well-nourished female in noacute distress. Her head is normocephalic and atraumatic. She is alert andoriented to person, place and time. She has white sclera, pink conjunctiva.Her mucous membranes are moist. She breathes easily and has normal chest wallexcursion. She has a normal affect. She continues to have patellofemoralirritability. She has pain with palpation of her infrapatellar fat pad is morelateral than medial. She has normal patellofemoral tracking. No pain withsquatting here today.Imaging: [facility] is personallyreviewed by me and demonstrates no significant abnormal findings. She doeshave evidence of possible edema in her infrapatellar fat pad at the lateralaspect on my read. Her patella is fairly centered with very minimal lateraldisplacement.Impressio n/plan: Saima Yancey is a 21 year old female here with adiagnosis of persistent anterior knee pain. She has pain with sitting for longperiods of time and feels as though she has to straighten her knee. She takestramadol for her pain which is concerning to me. She is overweight and worksin a strenuous job that requires her to stand constantly. Without any majorstructural issues on the evaluation I am reluctant to recommend surgicalintervention for management of her knee pain. I do not think diagnosticarthroscopy with necessarily be fruitful for her. She does have some mild tomoderate increase of her TT: TG distance. Consideration for possible lateralretinacular lengthening with or without medialization of her tibial tuberclemay be warranted at some point but she cannot take the time off from work andcommitted to rehabilitation in order to make the successful. I had a very longdiscussion with her today. I have explained to her that surgery for these typeof issues is not a slam dunk . The goals were surgery should be significantlydecreased pain for activities of daily living but strenuous activitiesincluding standing for long periods of time at work may still not be possiblefollowing surgical intervention. I'm concerned also about her usage oftramadol. We are going to send her to pain management to see if we can bettermodulate her pain in order to get her off of pain medication. We discussedweight loss also. She will return to see me on an as-needed basis only.Jordi Jackson, [facility] Provider: JOSE HASSAN [[id number]]Allergies As of Date: 11/06/2016(No Known Allergies)Date Reviewed: 11/06/2016Reviewed by: Ronda Acevedo - Jenn AssessedReason for Visit: Right Knee Pain [1209]Primary Visit Diagnosis:Patellofemoral stress syndrome of right knee [M22.2X1] Other Visit Diagnosis:Chronic pain of right knee [M25.561, G89.29]Order(s):CONSULT TO PAIN MGT ANESTHESIA [19990803] Order #: [id number]: 1Prescriptions as of 11/06/2016 Sig: DICLOFENAC 20 MG/GRAM/ACTUATI* Apply 1 Bottle to affected ar* Patient not taking: Reported on 11/06/2016 INDOMETHACIN 25 MG CAPSULE Take 1 capsule by mouth three* Patient not taking: Reported on 11/06/2016 TRAMADOL 50 MG TABLET Take 1 tablet by mouth every * MELOXICAM 7.5 MG TABLET Take once daily, may take up * Patient not taking: Reported on 11/06/2016 DICLOFENAC 1 % TOPICAL GEL Apply small amount to affecte* IBUPROFEN 600 MG TABLET Take 1 tablet by mouth every * METHYLERGONOVINE 0.2 MG TABLET Take 1 tablet by mouth every * VITS NO.15-IRON 90 M* Take 1 tablet by mouth once d*Problem List As Of Date 11/06/2016 Noted Resolved Patellofemoral stress syndrome of right knee [M*INVALID FOR* Confirm cardiac activity using ultrasound*INVALID FOR* Missed [O02.1] INVALID FOR* NO SHOW INVALID FOR* Decreased ROM of lower extremity [M25.669] INVALID FOR* Muscle weakness [M62.81] INVALID FOR* Right knee pain [M25.561] INVALID FOR*Follow-up and Disposition History RecordedEncounter Number: [id number] Status:Closed by JORDI JACKSON MD on 11/06/16 Normal [facility] PROGRESSon 11-06-2016 PROGRESS HNO ID: [id number] thor: Jordi Roervice: (none)Author Type: PhysicianType: Progress NotesFiled: 11/06/2016 9:08 PMNote Text:Interval History: Saima Yancey returns today for evaluation of rightknee pain . Chief complaint is continued right knee pain. She was seen byDr. Hassan who did not think that high-grade dissection would bebeneficial or diagnostic. She is very frustrated as she has been dealingwith this knee for quite some time. She has been seen by multiplephysicians. She currently is taking Ultram that was prescribed by anotherdoctor. As reminder, she moved here recently from the outside.Physical examination: This is a well-appearing, well-nourished female inno acute distress. Her head is normocephalic and atraumatic. She isalert and oriented to person, place and time. She has white sclera, pinkconjunctiva. Her mucous membranes are moist. She breathes easily and hasnormal chest wall excursion. She has a normal affect. She continues tohave patellofemoral irritability. She has pain with palpation of herinfrapatellar fat pad is more lateral than medial. She has normalpatellofemoral tracking. No pain with squatting here today.Imaging: Magnetic Resonance Imaging from [facility] is personallyreviewed by me and demonstrates no significant abnormal findings. Shedoes have evidence of possible edema in her infrapatellar fat pad at thelateral aspect on my read. Her patella is fairly centered with veryminimal lateral displacement.Impression/plan: Saima Yancey is a 21 year old female here with adiagnosis of persistent anterior knee pain. She has pain with sitting forlong periods of time and feels as though she has to straighten her knee.She takes tramadol for her pain which is concerning to me. She isoverweight and works in a strenuous job that requires her to standconstantly. Without any major structural issues on the evaluation I amreluctant to recommend surgical intervention for management of her kneepain. I do not think diagnostic arthroscopy with necessarily be fruitfulfor her. She does have some mild to moderate increase of her TT: TGdistance. Consideration for possible lateral retinacular lengthening withor without medialization of her tibial tubercle may be warranted at somepoint but she cannot take the time off from work and committed torehabilitation in order to make the successful. I had a very longdiscussion with her today. I have explained to her that surgery for thesetype of issues is not a slam dunk . The goals were surgery should besignificantly decreased pain for activities of daily living but strenuousactivities including standing for long periods of time at work may stillnot be possible following surgical intervention. I'm concerned also abouther usage of tramadol. We are going to send her to pain management to seeif we can better modulate her pain in order to get her off of painmedication. We discussed weight loss also. She will return to see me damian as-needed basis only.Jordi Jackson MD [facility] CNOVon 11-01-2016 CNOV Office Visit (CONCTB) -SAIMA YANCEY ([id number]) 1995 [facility] Provider Department11/01/16 11:15 AM JOSE HASSAN During your visit today, we recorded the following information about you:Jose Hassan MD 11/01/2016 12:33 PM SignedThis clinical note has been produced using speech recognition software.ASSESSMENT/PLAN:(M22 .2X1) Patellofemoral pain syndrome of right knee (primary encounterdiagnosis)Chronic knee painOverweightDiscussed weight lossDiscussed monitoring her symptomsDiscussed anti-inflammatory gelDiscussed bracing.Discussed icing, instructions on icing throughout the course of the dayDiscussed changing her anti-inflammatories aroundDiscussed marking the location for pain at different times throughout thecourse of the dayWe did discuss getting her back and see Dr. Jackson to discuss possibleexploratory surgery given her 2 year history of pain with very limited resultsfrom multiple treatments. At this time I do not see given her location ofdiscomfort of benefit of doing any fat pad hydrodissection type of injections.All questions are answered, patient expressed full understanding.Discussed medication dosage, usage, goals of therapy, and side effects.Written instructions (see patient instructions) and verbal health teachinggiven to patient, patient verbalizes understanding and agrees with treatmentplan.CHIEF COMPLAINT: Patient presents with:Follow Up: right kneeHISTORY OF PRESENT ILLNESS: Saima Yancey is a 21 year old female with ahistory of Patient presents with:Follow Up: right knee. Very frustrated by her continued right knee pain. Describes pain indifferent locations of her knee. Most recently has been the anterior aspect ofher knee when she is walking at work more on the quadriceps/patellar region.She does have some mild lateral knee discomfort as well. This is differentthan the medial knee pain she presented with the last visit and anterior moredistal knee pain that she presented with at the first visit.Describes minimal help with icing, pain will return when she takes I soft.Describes different anti-inflammatories with minimal reliefDoes feel like the tramadol as he only medication that has been helping her andshe will occasionally have take that during the day when she is working.Feels spent at the end of the day secondary to her work schedule and herincreased discomfort.Hasn't wearing comfortable shoes as wellDid try the true pool light brace with minimal relief.Denies any GI issues.PAST MEDICAL HISTORYDiagnosis Date- NEGATIVE MEDICAL HISTORYPAST SURGICAL ZDPEUCC39/2017: DANDamp;C (MISSED AB 1ST TRIMESTER)No date: NONEFAMILY HISTORY NoneSocial History Marital status: Single Spouse name: Years of education: Number of children:Social History Main Topics Smoking status: Never Smoker Smokeless status: Never Used Alcohol use: No Drug use: No Sexual activity: Yes Partners with: Male control/protection: NoneALLERGIES:ALLERGIESNo Known AllergiesCURRENT OUTPATIENT MEDICATIONS:Current Outpatient Prescriptions on File Prior to Visit:meloxicam (MOBIC) 7.5 mg tablet Take once daily, may take up to twice, asneeded for pain/inflammation. Do not take with other NSAIDs.Ethinyl Estradiol-Norelgestrom (ORTHO EVRA) 150-35 mcg/24 hr Apply 1 Patch asdirected once each week for 21 days. Then 1 week that is patch-free.diclofenac sodium (VOLTAREN) 1 % topical gel Apply small amount to affectedarea (up to 2 grams) 2-4 times/day as needed for pain/inflammation. Do not usewith other NSAIDs.ibuprofen (MOTRIN) 600 mg tablet Take 1 tablet by mouth every 6 hours asneeded.methylergonovine (METHERGINE) 0.2 mg tablet Take 1 tablet by mouth every 6hours. multivitamin 90-1-50 mg tab Take 1 tablet by mouth once daily.No current facility-administered medications on file prior to visit.REVIEW OF SYSTEMS:GENERAL: no recent illness, unexplained weight loss or weight gainNEUROLOGIC: no numbness, tingling, or weakness except as mentioned in HPI, noknown neuro problems or deficitsSKIN: No rash or new skin changes and no chronic skin problemsRHEUMATOLOGIC: no swollen joints, recurrent tendonopathies, and no known rheumproblemsAll elements of the patient?s history gathered for this visit were reviewed.PHYSICAL EXAMINATION:GENERAL APPEARANCE: Well appearing, in no acute distress, alert and oriented x3.Right knee no effusion. No significant hip flexor weakness. Increased painwith single leg squatting. Thessaly and Isaiah's testing remains positivefor pain. No ligamentous instability. No significant tenderness noted alongthe IT band. Mild tenderness noted over the medial as well as lateral jointline. Minimal medial greater than lateral patellar facet tenderness palpation. There is minimal discomfort noted over the distal quad tendon centrally thereis no significant tenderness noted about the Hoffa's fat pad. There is minimaltenderness noted with her knee in full extension on the proximal patella tendonbut there is no significant increase in her pain with Hoffa's fat padimpingement testing.Electronically Signed:Jose Hassan MDJuly 2016 11:54 Patricia Hassan MD 11/01/2016 12:01 PM AddendumYou may ice as needed or when you are in pain.For an ice bag, apply for 15-20 minutes at least twice a day, more if needed.Ice in a Ziplog/plastic bag or even a bag of frozen peas/corn will work (and isreusable).For ice massage, fill an empty paper or styrofoam cup nearly full with water,place them in the freezer and let them freeze completely. Tear the top off ofthe cup leaving the bottom part of the cup intact so you can hold onto it. Rubthe ice over the affected area for about [address] to do thisis in the shower or the bath (with affected area out of the water) for thecontrast of hot water, but it can be done outside of the shower.You can also use Vida dish liquid frozen in a ziploc bag. Use a large bottle,dump it in a gallon ziploc bag, zip that and place it inside another ziplocbag. Place in freezer and let it harden to a Play-jessica like consistency. Moldit around the part to be iced and use an bong wrap or towel to keep in place.Refreeze and use when needed.If a medication for the pain, swelling, or inflammation has not been prescribedto you, you can use over the counter medications such as:Aleve (Naproxen sodium), 1-2 pills, up to twice a day, with food, for 5-10days, then as needed thereafter.ORIbuprofen (Motrin), 3-4 pills, up to three times a day, with food, for 5-10days, then as needed thereafter.Do not take these medications if you have been instructed not to in the past orif you are taking another anti-inflammatory (such as Celebrex, Naprosyn,Relafen, Voltaren, Mobic, Anaprox, etc). Do not take if you have a history ofbleeding ulcers in your stomach. If this should start to upset your stomach,stop taking it. Should you have any questions, you may want to ask yourpharmacist or give our office a call.AND/ORTylenol (acetaminophen), three 325mg pills, or two 500mg pills, up to fourtimes a day, for 5-10 days, then as needed thereafter. Do not take this if youhave liver problems or have been advised to not take Tylenol in the past. Becareful when combining with other pain relievers as several pain relievers haveacetaminophen in them. Should you have any questions, you may want to ask yourpharmacist or give our office a call.Please keep your physical therapy appointment if one has been made for you andand if needed, schedule a follow up appointment.Capsaicin creamVoltaren gel/PennsaidReferring Provider: SELF [[id number]]Allergies As of Date: 11/01/2016(No Known Allergies)Date Reviewed: 11/01/2016Reviewed by: Desiree Mosqueda Ma - Fully AssessedReason for Visit: Follow Up [171] Cmt: right kneePrimary Visit Diagnosis:Patellofemoral stress syndrome of right knee [M22.2X1]Order(s):diclofenac sodium (PENNSAID) 20 mg/gram /actuation(2 %) sopmApply 1 Bottle to affected area twice daily as needed.Disp: 1 BottleRfl: 1 indomethacin (INDOCIN) 25 mg capsuleTake 1 capsule by mouth three times daily with meals.Disp: 30 capsuleRfl: 1 traMADol (ULTRAM) 50 mg tabletTake 1 tablet by mouth every 6 hours as needed for Pain.Disp: 40 tabletRfl: 0Prescriptions as of 11/01/2016 Sig: MELOXICAM 7.5 MG TABLET Take once daily, may take up * NORELGESTROMIN 150 MCG-E.ESTR* Apply 1 Patch as directed onc* DICLOFENAC 1 % TOPICAL GEL Apply small amount to affecte* IBUPROFEN 600 MG TABLET Take 1 tablet by mouth every * METHYLERGONOVINE 0.2 MG TABLET Take 1 tablet by mouth every * VITS NO.15-IRON 90 M* Take 1 tablet by mouth once d* DICLOFENAC 20 MG/GRAM/ACTUATI* Apply 1 Bottle to affected ar* INDOMETHACIN 25 MG CAPSULE Take 1 capsule by mouth three* TRAMADOL 50 MG TABLET Take 1 tablet by mouth every *Problem List As Of Date 11/01/2016 Noted Resolved Patellofemoral stress syndrome of right knee [M*INVALID FOR* Confirm cardiac activity using ultrasound*INVALID FOR* Missed [O02.1] INVALID FOR* NO SHOW INVALID FOR* Decreased ROM of lower extremity [M25.669] INVALID FOR* Muscle weakness [M62.81] INVALID FOR* Right knee pain [M25.561] INVALID FOR* Other instructions from your clinician: You may ice as needed or when you are in pain. For an ice bag, apply for 15-20 minutes at least twice a day, more if needed. Ice in a Ziplog/plastic bag or even a bag of frozen peas/corn will work (and is reusable). For ice massage, fill an empty paper or styrofoam cup nearly full with water, place them in the freezer and let them freeze completely. Tear the top off of the cup leaving the bottom part of the cup intact so you can hold onto it. Rub the ice over the affected area for about [address] to do this is in the shower or the bath (with affected area out of the water) for the contrast of hot water, but it can be done outside of the shower. You can also use Vida dish liquid frozen in a ziploc bag. Use a large bottle, dump it in a gallon ziploc bag, zip that and place it inside another ziploc bag. Place in freezer and let it harden to a Play-jessica like consistency. Mold it around the part to be iced and use an bong wrap or towel to keep in place. Refreeze and use when needed. If a medication for the pain, swelling, or inflammation has not been prescribed to you, you can use over the counter medications such as: Aleve (Naproxen sodium), 1-2 pills, up to twice a day, with food, for 5-10 days, then as needed thereafter. OR Ibuprofen (Motrin), 3-4 pills, up to three times a day, with food, for 5-10 days, then as needed thereafter. Do not take these medications if you have been instructed not to in the past or if you are taking another anti-inflammatory (such as Celebrex, Naprosyn, Relafen, Voltaren, Mobic, Anaprox, etc). Do not take if you have a history of bleeding ulcers in your stomach. If this should start to upset your stomach, stop taking it. Should you have any questions, you may want to ask your pharmacist or give our office a call. AND/OR Tylenol (acetaminophen), three 325mg pills, or two 500mg pills, up to four times a day, for 5-10 days, then as needed thereafter. Do not take this if you have liver problems or have been advised to not take Tylenol in the past. Be careful when combining with other pain relievers as several pain relievers have acetaminophen in them. Should you have any questions, you may want to ask your pharmacist or give our office a call. Please keep your physical therapy appointment if one has been made for you and and if needed, schedule a follow up appointment. Capsaicin cream Voltaren gel/PennsaidPrescriptions ordered this encounter Disp Refills Start End DICLOFENAC 20 MG/GRAM/ACTUATION (2 %* 1 Keaton* 1 11/01/2016 Route: TOPICAL Sig: Apply 1 Bottle to affected area twice daily as needed. INDOMETHACIN 25 MG CAPSULE 30 c* 1 11/01/2016 Route: ORAL Sig: Take 1 capsule by mouth three times daily with meals. TRAMADOL 50 MG TABLET 40 t* 0 11/01/2016 Class: Print RX Route: ORAL Sig: Take 1 tablet by mouth every 6 hours as needed for Pain. Status:Closed by JOSE HASSAN MD on 11/01/16 [facility] PROGRESSon 11-01-2016 PROGRESS HNO ID: [id number] thor: Jose Womackervice: (none)Author Type: PhysicianType: Progress NotesFiled: 11/01/2016 12:33 PMNote Text:This clinical note has been produced using speech recognition software.ASSESSMENT/PLAN:(M22 .2X1) Patellofemoral pain syndrome of right knee (primary encounterdiagnosis)Chronic knee painOverweightDiscussed weight lossDiscussed monitoring her symptomsDiscussed anti-inflammatory gelDiscussed bracing.Discussed icing, instructions on icing throughout the course of the dayDiscussed changing her anti-inflammatories aroundDiscussed marking the location for pain at different times throughout thecourse of the dayWe did discuss getting her back and see Dr. Jackson to discuss possibleexploratory surgery given her 2 year history of pain with very limitedresults from multiple treatments. At this time I do not see given herlocation of discomfort of benefit of doing any fat pad hydrodissectiontype of injections.All questions are answered, patient expressed full understanding.Discussed medication dosage, usage, goals of therapy, and side effects.Written instructions (see patient instructions) and verbal health teachinggiven to patient, patient verbalizes understanding and agrees withtreatment plan.CHIEF COMPLAINT: Patient presents with:Follow Up: right kneeHISTORY OF PRESENT ILLNESS: Saima Yancey is a 21 year old female witha history of Patient presents with:Follow Up: right knee. Very frustrated by her continued right knee pain. Describes pain indifferent locations of her knee. Most recently has been the anterioraspect of her knee when she is walking at work more on thequadriceps/patellar region. She does have some mild lateral kneediscomfort as well. This is different than the medial knee pain shepresented with the last visit and anterior more distal knee pain that shepresented with at the first visit.Describes minimal help with icing, pain will return when she takes I soft.Describes different anti-inflammatories with minimal reliefDoes feel like the tramadol as he only medication that has been helpingher and she will occasionally have take that during the day when she isworking.Feels spent at the end of the day secondary to her work schedule and herincreased discomfort.Hasn't wearing comfortable shoes as wellDid try the true pool light brace with minimal relief.Denies any GI issues.PAST MEDICAL HISTORYDiagnosis Date- NEGATIVE MEDICAL HISTORYPAST SURGICAL OYXUUFO63/2017: DANDC (MISSED AB 1ST TRIMESTER)No date: NONEFAMILY HISTORY NoneSocial History Marital status: Single Spouse name: Years of education: Number of children:Social History Main Topics Smoking status: Never Smoker Smokeless status: Never Used Alcohol use: No Drug use: No Sexual activity: Yes Partners with: Male control/protection: NoneALLERGIES:ALLERGIESNo Known AllergiesCURRENT OUTPATIENT MEDICATIONS:Current Outpatient Prescriptions on File Prior to Visit:meloxicam (MOBIC) 7.5 mg tablet Take once daily, may take up to twice, asneeded for pain/inflammation. Do not take with other NSAIDs.Ethinyl Estradiol-Norelgestrom (ORTHO EVRA) 150-35 mcg/24 hr Apply 1 Patchas directed once each week for 21 days. Then 1 week that is patch-free.diclofenac sodium (VOLTAREN) 1 % topical gel Apply small amount toaffected area (up to 2 grams) 2-4 times/day as needed forpain/inflammation. Do not use with other NSAIDs.ibuprofen (MOTRIN) 600 mg tablet Take 1 tablet by mouth every 6 hours asneeded.methylergonovine (METHERGINE) 0.2 mg tablet Take 1 tablet by mouth every 6hours. multivitamin 90-1-50 mg tab Take 1 tablet by mouth once daily.No current facility-administered medications on file prior to visit.REVIEW OF SYSTEMS:GENERAL: no recent illness, unexplained weight loss or weight gainNEUROLOGIC: no numbness, tingling, or weakness except as mentioned in HPI,no known neuro problems or deficitsSKIN: No rash or new skin changes and no chronic skin problemsRHEUMATOLOGIC: no swollen joints, recurrent tendonopathies, and no knownrheum problemsAll elements of the patient?s history gathered for this visit werereviewed.PHYSICAL EXAMINATION:GENERAL APPEARANCE: Well appearing, in no acute distress, alert andoriented x3.Right knee no effusion. No significant hip flexor weakness. Increasedpain with single leg squatting. Thessaly and Isaiah's testing remainspositive for pain. No ligamentous instability. No significant tendernessnoted along the IT band. Mild tenderness noted over the medial as well aslateral joint line. Minimal medial greater than lateral patellar facettenderness palpation. There is minimal discomfort noted over the distalquad tendon centrally there is no significant tenderness noted about theHoffa's fat pad. There is minimal tenderness noted with her knee in fullextension on the proximal patella tendon but there is no significantincrease in her pain with Hoffa's fat pad impingement testing.Electronically Signed:Don Llanos 2016 11:54 AM Normal [facility] MRI KNEE WO IVCON RTon 10-25 MRI KNEE WO IVCON RT * * *Final Report* * *DATE OF EXAM: Oct 25 2016 7:25AM [facility] 0213 - MRI KNEE WO IVCON RT / REASON: multiple diagnoses * * * * Physician Interpretation * * * * EXAMINATION: MRI RIGHT KNEE WITHOUT CONTRASTHISTORY: Right knee pain. Concern for meniscal tear. .TECHNIQUE: Routine non-contrast MRI of the kneeM: [id number]: NoneRESULT:MENISCI:Medial Meniscus: Intact.Lateral Meniscus: Intact.LIGAMENTS:ACL: IntactPCL: IntactMCL: IntactLCL Complex: Remote injury at the femoral attachment with thickening.CARTILAGE:Medial Femoral Condyle: NormalMedial Tibial Plateau: NormalLateral Femoral Condyle: NormalLateral Tibial Plateau: NormalPatella: NormalTrochlea: NormalTENDONS: The distal quadriceps and patellar tendons are intact. The popliteus tendon is intact.BONES AND MARROW: No evidence of fracture or bone marrow replacing process.MUSCLES: Muscle bulk and signal intensity are normal.JOINT FLUID AND SYNOVIUM: No joint effusion. No synovitis. No Sosa's cyst. Complex ganglion cyst deep to the semimembranosus insertion measuring 0.9 (AP) x 0.7 (TV) x 3.2 cm (CC).OTHER: No other significant abnormality identified.IMPRESSION:No acute internal derangement.Remote injury of the fibular collateral ligament.Binder Stripper Hand: ARASH Transcribe Date/Time: Oct 25 2016 8:41ADictated by : Blane QUINTANILLA examination was interpreted and the report reviewed and electronically signed by: CAROL ANN BERRIOS MD on Oct 26 2016 12:12AM EST Normal [facility] PROGRESSon 10-25-2016 PROGRESS HNO ID: [id number] thor: Shad Valdez Mri-TService: (none)Author Type: (none)Type: Progress NotesFiled: 10/25/2016 7:13 AMNote Text: Radiology Service Progress NotePATIENT NAME: Saima YanceyMRN: [id number] OF SERVICE: October 25, 2016TIME: 7:13 AMPATIENT IDENTITY VERIFICATION COMPLETED USING TWO (2) METHODS: Patientconfirmed name verbally and ID band matches..PATIENT GENDER DATA: Female. status: : NoBreastfeeding status: NO.PATIENT RELEVANT IMPLANT DATA REVIEWED: YesRADIOLOGY DEPARTMENT: MR; Exam(s) Completed: Lower MSK: Knee, rightPERIPHERAL IV DATA: Not applicableSIGNED BY: Shad Valdez Mri-TJune 2016 7:13 AM Normal [facility] Vital Signs Date Time Vital Sign Value Performing Clinician Facility 05-20-2023 10:00-0500 Body height 171.45 cm Darci Chen Other [facility] Other 05-20-2023 10:00-0500 Body mass index (BMI) [Ratio] 40.12 kg/m2 Darci Chen Other [facility] Other 05-20-2023 10:00-0500 Body weight 117.94 kg Darci Chen Other [facility] Other 05-20-2023 10:00-0500 Diastolic blood pressure 90 mm[Hg] Darci Chen Other [facility] Other 05-20-2023 10:00-0500 SaO2% (BldA) [Mass fraction] 97 % Darci Chen Other [facility] Other 05-20-2023 10:00-0500 Systolic blood pressure 127 mm[Hg] Darci Chen Other [facility] Other 04-30-2023 14:30-0500 Body height 171.45 cm Amanda Samuel Other [facility] Other 04-30-2023 14:30-0500 Body mass index (BMI) [Ratio] 39.96 kg/m2 Amanda Samuel Other [facility] Other 04-30-2023 14:30-0500 Body weight 117.48 kg Amanda Samuel Other [facility] Other 04-30-2023 14:30-0500 Diastolic blood pressure 82 mm[Hg] Amanda Samuel Other [facility] Other 04-30-2023 14:30-0500 SaO2% (BldA) [Mass fraction] 99 % Amanda Samuel Other [facility] Other 04-30-2023 14:30-0500 Systolic blood pressure 120 mm[Hg] Amanda Samuel Other [facility] Other 12-25-2022 10:45-0400 Body height 171.45 cm Amanda Samuel Other [facility] Other 12-25-2022 10:45-0400 Body mass index (BMI) [Ratio] 42.74 kg/m2 Amanda Samuel Other [facility] Other 12-25-2022 10:45-0400 Body weight 125.65 kg Amanda Samuel Other [facility] Other 12-25-2022 10:45-0400 Diastolic blood pressure 84 mm[Hg] Amanda Samuel Other [facility] Other 12-25-2022 10:45-0400 Systolic blood pressure 120 mm[Hg] Amanda Samuel Other [facility] Other 10-11-2021 10:45-0400 Body height 171.45 cm Nick Ng Other [facility] Other 10-11-2021 10:45-0400 Body mass index (BMI) [Ratio] 38.73 kg/m2 Nick Olexa Other [facility] Other 10-11-2021 10:26-9559 Body weight 113.85 kg Nick Ng Other [facility] Other Encounters Encounter Date Encounter Type Care Provider Facility Start: 07-03-2023 End: 07-03-2023 ambulatory KALIE PARSON Not Available Start: 06-03-2023 End: 06-03-2023 ambulatory KALIE PARSON Not Available Start: 06-02-2023 End: 06-02-2023 ambulatory Amanda Samuel Facility:[facility] Start: 06-02-2023 End: 06-02-2023 ambulatory ROCHELLE Samuel Work Phone: [facility] Work Phone: Start: 06-02-2023 End: 06-02-2023 Patient encounter procedure ROCHELLE Samuel Work Phone: [facility] Work Phone: Start: 05-27-2023 End: 05-27-2023 ambulatory Amanda Samuel Facility:[facility] Start: 05-27-2023 End: 05-27-2023 ambulatory ROCHELLE Samuel Work Phone: [facility] Work Phone: Start: 05-27-2023 End: 05-27-2023 Patient encounter procedure ROCHELLE Samuel Work Phone: [facility] [place] Work Phone: Start: 05-20-2023 Office outpatient vi sit 40 minutes Darci Chen [facility] Start: 05-20-2023 End: 05-20-2023 ambulatory ROCHELLE Samuel Work Phone: [facility] [employer] Other Start: 05-20-2023 End: 05-20-2023 Patient encounter procedure HOUSE FURNISHINGS SUPERVISORBill SueAmandajenna Samuel Work Phone: [facility] Work Phone: Start: 05-05-2023 End: 05-05-2023 ambulatory Darci Chen Facility:[facility] Start: 05-05-2023 End: 05-05-2023 ambulatory HOUSE FURNISHINGS SUPERVISORBill Samuel Work Phone: [facility] Work Phone: Start: 05-05-2023 End: 05-05-2023 Patient encounter procedure HOUSE FURNISHINGS SUPERVISORBill SueAmanda Jimmie Work Phone: [facility] Work Phone: Start: 05-05-2023 End: 05-05-2023 ambulatory KALIE BLANK Not Available Start: 04-30-2023 End: 04-30-2023 ambulatory Amanda Samuel Other [facility] Other Start: 04-30-2023 Office outpatient vi sit 15 minutes Amanda Samuel [facility] Start: 04-30-2023 End: 04-30-2023 Patient encounter procedure HOUSE FURNISHINGS SUPERVISORBill SueAmanda Jimmie Work Phone: [facility] Work Phone: Start: 04-26-2023 End: 04-26-2023 [facility] Start: 04-01-2023 End: 04-01-2023 ambulatory KALIE BLANK Not Available Start: 03-17-2023 End: 03-17-2023 Patient encounter procedure HOUSE FURNISHINGS SUPERVISORBill Samuel Work Phone: [facility] Work Phone: Start: 12-25-2022 End: 12-25-2022 ambulatory Amanda Samuel Other [facility] Other Start: 12-25-2022 Office outpatient vi sit 15 minutes Amanda Samuel [facility] Start: 07-15-2022 End: 07-16-[address] JASMEET HUBBARD . Facility: Start: 06-12-2022 End: 06-12-2022 ambulatory Amanda Samuel Other [facility] Other Start: 06-12-2022 Encounter by jose Samuel [facility] [place] Start: 06-06-2022 End: 06-06-2022 ambulatory [employer] Facility:[facility] Start: 06-05-2022 End: 06-06-[address] JASMEET HUBBARD . Facility: Start: 05-06-2022 End: 05-07-[address] JASMEET HUBBARD . Facility: Start: 03-08-2022 End: 03-09-[address] JASMEET HUBBARD . Facility: Start: 01-25-2022 End: 01-25-2022 ambulatory Nick Ng Other [facility] [employer] Other Start: 01-25-2022 Telephone encounter Nick Torresbe [facility] Start: 01-24-2022 End: 01-24-2022 ambulatory ROCHELLE Samuel Work Phone: [facility] Work Phone: Start: 01-24-2022 End: 01-24-2022 Patient encounter procedure ROCHELLE Samuel Work Phone: [facility] [place] Start: 01-16-2022 End: 01-16-2022 ambulatory Amanda Mueller Other [employer] Other Start: 01-16-2022 Office outpatient vi sit 15 minutes Amanda Mueller [facility] Start: 01-03-2022 End: 01-04-[address] JASMEET HUBBARD . Facility: Start: 12-06-2021 End: 12-06-2021 ambulatory Nick Olexa Other [facility] Other Start: 12-06-2021 Postop follow up vis it related to original px Nick Olexa [facility] Start: 12-06-2021 End: 12-06-2021 Patient encounter procedure HOUSE FURNISHINGS SUPERVISORBill Samuel Work Phone: [facility] Start: 11-22-2021 End: 11-22-2021 ambulatory Nick Olexa Other [facility] Other Start: 11-22-2021 Telephone encounter Nick Olexa [facility] Start: 11-13-2021 End: 11-13-2021 ambulatory Nick Olexa Other [facility] Other Start: 11-13-2021 Telephone encounter Nick Olexa [facility] Start: 11-08-2021 End: 11-08-2021 Patient encounter procedure HOUSE FURNISHINGS SUPERVISORBill Samuel Work Phone: [facility] [place] [facility] Start: 10-11-2021 (Post-Op) Post-Op Nick Olexa [facility] Start: 10-11-2021 End: 10-11-2021 ambulatory Nick Olexa Other [facility] Other Start: 10-01-2021 End: 10-01-2021 ambulatory Amanda Samuel Other [facility] Other Start: 10-01-2021 Telephone encounter Amanda mcnair [facility] Start: 09-28-2021 End: 09-28-2021 ambulatory Amanda Samuel Other [facility] Other Start: 09-28-2021 Telephone encounter Amanda Jcarlos mcnair [facility] Start: 09-27-2021 End: 09-27-2021 ambulatory Nick Ng Other [facility] Other Start: 09-27-2021 Office outpatient ne w 45 minutes Nick Berenice [facility] Start: 09-27-2021 Telephone encounter Amanda Borreroarney [facility] Start: 09-14-2021 End: 09-14-[address] JASMEET HUBBARD . Facility:[facility] Start: 09-14-2021 Encounter for preprocedural laboratory examination DR JASMEET HUBBARD . [facility] Start: 09-11-2021 End: 09-12-[address] JASMEET HUBBARD . Facility: Start: 09-11-2021 End: 09-12-2021 Encounter for preprocedural laboratory examination DR JASMEET HUBBARD . Facility:[facility] Start: 09-05-2021 Encounter for other preprocedural examination DR JASMEET HUBBARD . [facility] Start: 09-03-2021 End: 09-04-[address] JASMEET HUBBARD . Facility:[facility] Start: 09-03-2021 End: 09-04-2021 Encounter for other preprocedural examination DR JASMEET HUBBARD . Facility:[facility] Start: 08-20-2021 End: 08-20-[address] JASMEET HUBBARD . Facility: Start: 04-11-2017 End: 04-14-2017 Ambulatory JOSE HASSAN [facility] Start: 03-29-2017 End: 03-31-2017 Ambulatory JOSE HASSAN [facility] Start: 01-14-2017 End: 01-14-2017 Ambulatory JAMES JONES [facility] Start: 12-11-2016 Ambulatory AGAPITO TORRES [facility] Start: 11-18-2016 End: 12-16-2016 Ambulatory AGAPITO TORRES [facility] Start: 11-06-2016 End: 11-06-2016 Ambulatory JORDI JACKSON [facility] Start: 11-01-2016 End: 11-01-2016 Ambulatory JOSE HASSAN [facility] Start: 10-25-2016 End: 10-25-2016 Ambulatory JOSE HASSAN [facility] Procedures Date Procedure Procedure Detail Performing Clinician Start: 05-27-2023 MRI of head HOUSE FURNISHINGS SUPERVISOR Rach Samuel Work Phone: Start: 01-24-2022 MRI of right knee HOUSE FURNISHINGS SUPERVISOR Amanda Becerrilbladimirpercy Work Phone: Start: 12-06-2021 X-ray of right knee APR N Amanda Sidhur Work Phone: Start: 11-08-2021 X-ray of right knee APR N Amanda Sidhur Work Phone: Plan of Treatment Date Care Activity Detail Author Start: 05-27-2023 MR Unspecified body region [facility] Start: 05-27-2023 MRI of head MR head/brain wo/w con [facility] Immunizations Immunization Date Immunization Notes Care Provider Fa aileen 01-28-2020 influenza, injectabl e, quadrivalent, contains preservative Amanda Samuel Other [facility] Other 08-16-2016 diphtheria, tetanus toxoids and acellular pertussis vaccine Amanda Samuel Other [facility] Other 02-27-2010 influenza virus vaccine, split virus (incl. purified surface antigen) Amanda Samuel Other [facility] Other 11-09-2008 human papilloma viru s vaccine, quadrivalent Amanda Burgosacher Other [facility] Other 07-05-2008 human papilloma viru s vaccine, quadrivalent Amanda Becerrilrbacher Other [facility] Other 01-13-2009 human papilloma viru s vaccine, quadrivalent Amanda Jimime Other [facility] Other 04-12-2008 diphtheria, tetanus toxoids and acellular pertussis vaccine Amanda Jimmie Other [facility] Other 04-12-2008 meningococcal polysaccharide (groups A, C, Y and W-135) diphtheria toxoid conjugate vaccine (MCV4P) Amanda Jimmie Other [facility] Other 04-12-2008 varicella virus vaccine Carmen Samuel Other [facility] Other 12-07-2001 diphtheria, tetanus toxoids and acellular pertussis vaccine Amanda Jimmie Other [facility] Other 12-07-2001 poliovirus vaccine, inactivated Amanda Jimmie Other [facility] Other 04-16-2000 measles, mumps and rubella virus vaccine Amanda Jimmie Other [facility] Other 07-14-1998 diphtheria, tetanus toxoids and acellular pertussis vaccine Amanda Jimmie Other [facility] Other 07-14-1998 haemophilus influenz ae type b vaccine, PRP-OMP conjugate Amanda Samuel Other [facility] Other 04-13-1998 measles, mumps and rubella virus vaccine Amanda Jimmie Other [facility] Other 04-13-1998 varicella virus vaccine Carmen Samuel Other [facility] Other 1997 diphtheria, tetanus toxoids and acellular pertussis vaccine Amanda Burgosacher Other [facility] Other 1997 haemophilus influenz ae type b vaccine, PRP-OMP conjugate Amanda Becerrilrbacher Other [facility] Other 1997 hepatitis B vaccine, pediatric or pediatric/adolescent dosage Amanda Rohrbacher Other [facility] Other 1997 poliovirus vaccine, inactivated Amanda Becerrilrbacher Other [facility] Other 1997 diphtheria, tetanus toxoids and acellular pertussis vaccine Amanda Becerrilrbacher Other [facility] Other 1997 haemophilus influenz ae type b vaccine, PRP-OMP conjugate Amanda Becerrilrbacher Other [facility] Other 1997 poliovirus vaccine, inactivated Amanda Becerrilrbacher Other [facility] Other 1997 diphtheria, tetanus toxoids and acellular pertussis vaccine Amanda Jerricarbacher Other [facility] Other 1997 haemophilus influenz ae type b vaccine, PRP-OMP conjugate Amanda Becerrilrbacher Other [facility] Other 1997 hepatitis B vaccine, pediatric or pediatric/adolescent dosage Amanda Jerricarbacher Other [facility] Other 1997 poliovirus vaccine, inactivated Amanda iJmmie Other [facility] Other 1997 hepatitis B vaccine, pediatric or pediatric/adolescent dosage Amanda Jimmie Other [facility] Other Payers Date Payer Category Payer Private Health Insurance [id number] 2023 Self-pay [id number] 2022 Medicaid [id number] 2022 Medicaid [id number] 1997 Unknown [id number] 2.16.84 0.1.932005.3.579.2.593 1997 Unknown [id number] 2.16.84 0.1.700789.3.579.2.593 1997 Unknown [id number] 2.16.84 0.1.065584.3.579.2.593 1997 Unknown [id number] 2.16.84 0.1.353538.3.579.2.593 1997 Unknown [id number] 2.16.84 0.1.840551.3.579.2.593 1997 Unknown [id number] 2.16.84 0.1.853439.3.579.2.593 1997 Unknown [id number] 2.16.84 0.1.702449.3.579.2.593 1997 Unknown [id number] 2.16.84 0.1.733828.3.579.2.593 1997 Unknown [id number] 2.16.84 0.1.620617.3.579.2.593 1997 Unknown [id number] 2.16.8 40.1.311806.3.579.2.718 1997 Unknown [id number] 2.16.8 40.1.085457.3.579.2.718 1997 Unknown [id number] 2.16.84 0.1.038363.3.579.2.1259 1997 Unknown [id number] 2.16.84 0.1.214436.3.579.2.1259 1997 Unknown [id number] 2.16.84 0.1.628276.3.579.2.1259 1997 Unknown [id number] 2.16.840 .1.960907.3.579.2.1259 1957 [facility] [id number] 2.16.840.1.303336.19 1959 Unknown [id number] 2.1 6.840.1.065507.19 Unknown [id number] 2.16.8 40.1.202489.3.579.2.531 Unknown [id number] 2.16.8 40.1.355747.3.579.2.531 Unknown [id number] 2.16.8 40.1.202293.3.579.2.531 Unknown [id number] 2.16.8 40.1.542647.3.579.2.531 Social History Date Type Detail Facility Unknown if ever smoked [facility] Other Sex Assigned At Sex Assigned At Bir th [facility] Other Start: 1995 Sex Assigned At Female [facility] Clinical Notes 08-26-2021 to 05-20-2023 Note Date & Type Note Facility 05-20-2023 Evaluation note Encounter Date Diagnosis Assessment Notes Apr, Sleep apnea (ICD-10 - G47.30) The findings on her history and physical do suggest obstructive sleep apnea, but her home sleep test did not show sufficient events to clearly confirm the diagnosis. However, as home sleep testing often underestimates sleep apnea a negative home sleep test cannot reliably rule out BELEN. I discussed the situation in detail and she expresses understanding. While she understands PSG would be the usually recommended test in this situation, she reports that in laboratory PSG would be a particular hardship due to childcare and other issues. I would prefer PSG to confirm that sleep apnea is not present as she has significant signs and symptoms of the disorder. We discussed the potential connection between sleep apnea and her ongoing symptoms including headaches Apr, BMI 40.0-44.9, adult (ICD-10 - Z68.41) Weight reduction would be broadly beneficial for overall health, but would also have direct benefits on apnea severity and sleep quality. Even moderate weight reduction can affect BELEN and snoring, and in some patients weight reduction can completely resolve sleep apnea Apr, Excessive daytime sleepiness (ICD-10 - G47.19) Excessive daytime sleepiness may well be coming from sleep apnea, though other sources are possible. She is undergoing workup for some of these potential causes, although sleep apnea could be a significant factor in this symptom. Apr, Intractable chronic migraine with aura and without status migrainosus (ICD-10 - G43.E19) Scan has been ordered to evaluate for problems such as idiopathic intracranial hypertension. Sleep apnea can contribute to headache frequency as well. Headaches of all types, but particularly migraine headaches, are sensitive to sleep quality and quantity. Many patients with headache find improvements in severity and frequency after sleep problems are resolved. Apr, Other The diagnosis of Sleep Apnea was reviewed in detail. The patient expresses good understanding, We also reviewed the medical and accident risks associated with sleep apnea and excessive fatigue. The patient is advised to adhere to a proper sleep hygiene schedule and to assure adequate total sleep time; The patient was advised to continue efforts at progressive weight loss, including decreased overall caloric intake quantity and better food choices.The patient was advised to call or return any difficulties arise, including changes in symptoms and/or problems with treatment [facility] Other 01-03-2024 Evaluation note* Encounter Date Diagnosis Assessment Notes Treatment Notes Treatment Clinical Notes Apr, New onset headache (ICD-10 - R51.9) Neuro exam WNL. Discussed due to symptoms and sudden onset that would recommend further imaging. Educated patient on prevention of headaches, including proper sleep hygiene, avoiding eye strain, decreasing stress, eating proper diet and avoiding excessive caffeine. Reviewed warning symptoms that indicate follow up, including intractable pain, vision changes, worse headache of your life , thunder clap headaches, etc. Will call with results and further recommendations. Apr, Dizziness (ICD-10 - R42) Apr, Family history of migraine (ICD-10 - Z82.0) [facility] Other 12-30-2023 NoteEducation Materials Neurology Migraine Headache A migraine headache is an intense, throbbing pain on one side or both sides of the head. Migraine headaches may also cause other symptoms, such as nausea, vomiting, and sensitivity to light and noise. A migraine headache can last from 4 hours to 3 days. Talk with your doctor about what things may bring on (trigger) your migraine headaches. What are the causes? The exact cause of this condition is not known. However, a migraine may be caused when nerves in the brain become irritated and release chemicals that cause inflammation of blood vessels. This inflammation causes pain. This condition may be triggered or caused by: ? Drinking alcohol. ? Smoking. ? Taking medicines, such as: ? Medicine used to treat chest pain (nitroglycerin). ? control pills. ? Estrogen. ? Certain blood pressure medicines. ? Eating or drinking products that contain nitrates, glutamate, aspartame, or tyramine. Aged cheeses, chocolate, or caffeine may also be triggers. ? Doing physical activity. Other things that may trigger a migraine headache include: ? Menstruation. ? . ? Hunger. ? Stress. ? Lack of sleep or too much sleep. ? Weather changes. ? Fatigue. What increases the risk? The following factors may make you more likely to experience migraine headaches: ? Being a certain age. This condition is more common in people who are 25?55 years old. ? Being female. ? Having a family history of migraine headaches. ? Being . ? Having a mental health condition, such as depression or anxiety. ? Being obese. What are the signs or symptoms? The main symptom of this condition is pulsating or throbbing pain. This pain may: ? Happen in any area of the head, such as on one side or both sides. ? Interfere with daily activities. ? Get worse with physical activity. ? Get worse with exposure to bright lights or loud noises. Other symptoms may include: ? Nausea. ? Vomiting. ? Dizziness. ? General sensitivity to bright lights, loud noises, or smells. Before you get a migraine headache, you may get warning signs (an aura). An aura may include: ? Seeing flashing lights or having blind spots. ? Seeing bright spots, halos, or zigzag lines. ? Having tunnel vision or blurred vision. ? Having numbness or a tingling feeling. ? Having trouble talking. ? Having muscle weakness. Some people have symptoms after a migraine headache (postdromal phase), such as: ? Feeling tired. ? Difficulty concentrating. How is this diagnosed? A migraine headache can be diagnosed based on: ? Your symptoms. ? A physical exam. ? Tests, such as: ? CT scan or an MRI of the head. These imaging tests can help rule out other causes of headaches. ? Taking fluid from the spine (lumbar puncture) and analyzing it (cerebrospinal fluid analysis, or CSF analysis). How is this treated? This condition may be treated with medicines that: ? Relieve pain. ? Relieve nausea. ? Prevent migraine headaches. Treatment for this condition may also include: ? Acupuncture. ? Lifestyle changes like avoiding foods that trigger migraine headaches. ? Biofeedback. ? Cognitive behavioral therapy. Follow these instructions at home: Medicines ? Take zmwm-rcb-owbbbck and prescription medicines only as told by your health care provider. ? Ask your health care provider if the medicine prescribed to you: ? Requires you to avoid driving or using heavy machinery. ? Can cause constipation. You may need to take these actions to prevent or treat constipation: ? Drink enough fluid to keep your urine pale yellow. ? Take kxuc-ptw-xaerijk or prescription medicines. ? Eat foods that are high in fiber, such as beans, whole grains, and fresh fruits and vegetables. ? Limit foods that are high in fat and processed sugars, such as fried or sweet foods. Lifestyle ? Do not drink alcohol. ? Do not use any products that contain nicotine or tobacco, such as cigarettes, e-cigarettes, and chewing tobacco. If you need help quitting, ask your health care provider. ? Get at least 8 hours of sleep every night. ? Find ways to manage stress, such as meditation, deep breathing, or yoga. General instructions ? Keep a journal to find out what may trigger your migraine headaches. For example, write down: ? What you eat and drink. ? How much sleep you get. ? Any change to your diet or medicines. ? If you have a migraine headache: ? Avoid things that make your symptoms worse, such as bright lights. ? It may help to lie down in a dark, quiet room. ? Do not drive or use heavy machinery. ? Ask your health care provider what activities are safe for you while you are experiencing symptoms. ? Keep all follow-up visits as told by your health care provider. This is important. Contact a health care provider if: ? You develop symptoms (more content not included)...[id number] Encounter Date Diagnosis Assessment Notes Treatment Notes Treatment Clinical Notes Nov, Bronchitis (ICD-10 - J40) Discussed diagnosis with patient. Patient to start Zithromax. Patient to take Zithromax daily with food as prescribed. Finish entire course of antibiotic. Tessalon Pearles ordered to take as needed for cough. Increase fluids and rest. Flur-iwm-lwjamrb antipyretics as needed. Warning signs and symptoms reviewed with patient today. Patient to go immediately to the ER should she experience any of these. Patient to notify office should her symptoms persist and not improve. Patient verbalizes understanding and agrees to treatment plan. [employer] Other 02-09-2023 NotePatient Education Materials Follows: Sore Throat When you have a sore throat, your throat may: ? Hurt. ? Burn. ? Feel irritated. ? Feel scratchy. Many things can cause a sore throat, including: ? A viral infection. ? A bacterial infection ? Allergies. ? Dryness in the air. ? Smoke or pollution. ? Gastroesophageal reflux disease (GERD). A sore throat can be the first sign of another sickness. It can happen with other problems, like coughing or a fever. Most sore throats go away without treatment. Follow these instructions at home: ? Take sefv-bgf-tvdirwd medicines only as told by your doctor. ? Drink enough fluids to keep your pee (urine) clear or pale yellow. ? Rest when you feel you need to. ? To help with pain, try: ? Sipping warm liquids, such as broth, herbal tea, or warm water. ? Eating or drinking cold or frozen liquids, such as frozen ice pops. ? Gargling with a salt-water mixture 3?4 times a day or as needed. To make a salt-water mixture, add ??1 tsp of salt in 1 cup of warm water. Mix it until you cannot see the salt anymore. ? Sucking on hard candy or throat lozenges. ? Putting a cool-mist humidifier in your bedroom at night. ? Sitting in the bathroom with the door closed for 5?10 minutes while you run hot water in the shower. ? Do not use any tobacco products, such as cigarettes, chewing tobacco, and e- cigarettes. If you need help quitting, ask your doctor. Contact a doctor if: ? You have a fever for more than 2?3 days. ? You keep having symptoms for more than 2?3 days. ? Your throat does not get better in 7 days. ? You have a fever and your symptoms suddenly get worse. Get help right away if: ? You have trouble breathing. ? You cannot swallow fluids, soft foods, or your saliva. ? You have swelling in your throat or neck that gets worse. ? You keep feeling like you are going to throw up (vomit). ? You keep throwing up. This information is not intended to replace advice given to you by your health care provider. Make sure you discuss any questions you have with your health care provider. Document Released: 01/21/2009 Document Revised: 12/08/2016 Document Reviewed: 02/02/2016 [employer] Patient Education ? 2019 [employer] ENT Otitis Media, Adult Otitis media is a condition in which the middle ear is red and swollen (inflamed) and full of fluid. The middle ear is the part of the ear that contains bones for hearing as well as air that helps send sounds to the brain. The condition usually goes away on its own. What are the causes? This condition is caused by a blockage in the eustachian tube. This tube connects the middle ear tothe back of the nose. It normally allows air into the middle ear. The blockage is caused by fluid or swelling. Problems that can cause blockage include: ? A cold or infection that affects the nose, mouth, or throat. ? Allergies. ? An irritant, such as tobacco smoke. ? Adenoids that have become large. The adenoids are soft tissue located in the back of the throat, behind the nose and the roof of the mouth. ? Growth or swelling in the upper part of the throat, just behind the nose (nasopharynx). ? Damage to the ear caused by a change in pressure. This is called barotrauma. What increases the risk? You are more likely to develop this condition if you: ? Smoke or are exposed to tobacco smoke. ? Have an opening in the roof of your mouth (cleft palate). ? Have acid reflux. ? Have problems in your body's defense system (immune system). What are the signs or symptoms? Symptoms of this condition include: ? Ear pain. ? Fever. ? Problems with hearing. ? Being tired. ? Fluid leaking from the ear. ? Ringing in the ear. How is this treated? This condition can go away on its own within 3?5 days. But if the condition is caused by germs (bacteria) and does not go away on its own, or if it keeps coming back, your doctor may: ? Give you antibiotic medicines. ? Give you medicines for pain. Follow these instructions at home: ? Take magz-gkz-kqpxzwo and prescription medicines only as told by your doctor. ? If you were prescribed an antibiotic medicine, take it as told by your doctor. Do not stop takingit even if you start to feel better. ? Keep all follow-up visits. Contact a doctor if: ? You have bleeding from your nose. ? There is a lump on your neck. ? You are not feeling better in 5 days. ? You feel worse instead of better. Get help right away if: ? You have pain that is not helped with medicine. ? You have swelling, redness, or pain around your ear. ? You get a stiff neck. ? You cannot move part of your face (paralysis). ? You notice that the bone behind your ear hurts when you touch it. ? You get a very bad headache. Summary ? Otitis media means that the middle ear is red, swollen, and full of fluid. ? This condition usually goes a (more content not included)...[facility] Evaluation note* Encounter Date Diagnosis Assessment Notes Treatment Notes Treatment Clinical Notes Dec, Nondisplaced fracture of right tibial spine, subsequent encounter for closed fracture with routine healing (ICD-10 - S82.114D) I am concerned about potential anterior cruciate ligament (ACL) tear that will not improve with conservative and non-operative treatments. Continued active use of the knee can lead to worsening of the condition and lead to irreversible damage to the knee. An MRI of the knee will be necessary to identify the source of pain and plan potential surgical treatment. [employer] Other 08-11-2022 Evaluation note* Encounter Date Diagnosis Assessment Notes Treatment Notes Treatment Clinical Notes Nov, Nondisplaced fracture of right tibial spine, subsequent encounter for closed fracture with routine healing (ICD-10 - S82.114D) Radiographs reviewed with patient. Instructed on progression of motion and strengthening exercises. Discussed the catching sensation she describes with motion may be scar formation that will wear down over time. Advised she may progress from the current knee brace to a lower profile one with metal stays. Call with questions/concerns. [employer] Other 06-16-2022 Evaluation note* Encounter Date Diagnosis Assessment Notes Treatment Notes Treatment Clinical Notes Sep, Closed nondisplaced fracture of spine of right tibia, initial encounter (ICD-10 - S82.114A) Radiographs reviewed with patient. Continue toe touch weight bearing only. Wear splint while up, may remove at rest. Instructed on continued gentle motion exercises. Advised as pain improves over the next weeks, may consider light biking or band exercises. Call with questions/concerns . Patient to continue off work at this time. [employer] Other 06-02-2022 Evaluation note* Encounter Date Diagnosis Assessment Notes Treatment Notes Treatment Clinical Notes Sep, Closed fracture of medial portion of right tibial plateau, initial encounter (ICD-10 - S82.131A) Radiographs reviewed with patient as a medial tibial plateau fracture. We will obtain a STAT CT for further evaluation to determine the need for surgical treatment. We have recommended non-weight bearing and use of a straight leg knee immobilizer or hinged knee brace. Patient can open the immobilizer to wash and allow knee flexion as pain allows. We discussed that weight bearing or strenuous activity can potentially cause fracture displacement. We discussed that this injury can lead to alf pain and development of arthritic change. Discussed potential to consult with Dr Victoria depending on CT results. We were able to evaluate the CT scan later this afternoon. There is a anterior tibial spine fracture with minimal displacement. I will be recommending nonoperative treatment and nonweightbearing at this time. We will allow gentle range of motion in a brace. Aspirin for DVT prophylaxis [employer] Other 05-20-2022 NoteThe [place], [place] NAME: SAIMA YANCEY DATE OF : MEDICAL REC#: [id number] COVER INSPECTOR: [address] [facility], TRANS[facility]MIT DATE: 09/14/2021 10:36:00 QUALITY FACILITATOR DATE: 09/16/2021 02:00 DICTATING PHYSICIAN: JASMEET HUBBARD DICTATION DATE: 09/14/2021 13:00 OPERATIVE NOTE OPERATION DATE: 09/14/2021 PROCEDURE: Diagnostic laparoscopy. PREOPERATIVE DIAGNOSIS: Pelvic pain. POSTOPERATIVE DIAGNOSIS: Pelvic pain. ANESTHESIA: General. SURGEON: Jasmeet Hubbard M.D. ASSISTANT ACCOUNT MANAGER: JANELL De Souza URINE OUTPUT: Yellow and clear. BLOOD LOSS: 5 mL. FINDINGS: Endometrial implants in the posterior cul-de-sac as well as on the bladder, otherwise normal appearing ovaries, uterus and tubes. Normal appearing appendix. SPECIMEN: None. PROCEDURE: The patient was taken back to the Operating Room where she was placed in dorsal lithotomy position after given general anesthesia. The patient was prepped and draped in normal sterile fashion. A sponge stick was placed into the patient's vagina. Attention was turned to the patient's abdomen, where a small umbilical incision was made. The fascia was tented using Arcenio clamps and the fascia was entered sharply. Confirmation of intraabdominal placement of the 10 mm port was confirmed under direct visualization using a laparoscope. The patient's abdomen was then insufflated using CO2 gas with approximately 4 liters. A second port was placed left laterally, this was done under direct visualization with a 5 mm port. Survey of the patient's abdomen demonstrated normal liver and gallbladder. Survey of the patient's pelvic anatomy demonstrated normal appearing ovaries and tubes as well as normal appearing uterus. endometrial implants could be noted in posterior culdesac, no evidence of any pelvic disease was seen, normal appearing pelvic cavity. All instruments were removed from the patient's abdomen. The patient's abdomen was desufflated of CO2 gas. The patient tolerated the procedure well. Sponge stick was removed from the patient's vagina. The patient's infraumbilical fascia was closed using #0 Vicryl on a GI needle. The patient's skin was closed laterally and infraumbilically using 4-0 Vicryl. The patient tolerated the procedure well. Sponge, lap and needle counts were correct x 2. The patient was taken to Recovery Room in stable condition. ? Electronically Authenticated and Edited by: Jasmeet Hubbard DO on 09/17/2021 07:39 AM EDT IF Signed and Approved by: DR JASMEET HUBBARD . 09/17/2021 07:39:00[facility]05-01-2022 History general Narrative - Reported* Type Description Date Medical History Headaches Medical History Concussion, without loss of consciousness, initial encounter Surgical History tonsillectomy Surgical History D&C Surgical History laparoscopy 08/2021 Surgical History C section 12/2018 Hospitalization History Dehydration 2000 Hospitalization History Miscarriage D&C [employer] Other Evaluation noteNo InformationNort Finisar Other Evaluation noteNo assessment information available [facility] Work Phone: History general Narrative - Reported* Type Description Date Medical History Headaches Medical History Concussion, without loss of consciousness, initial encounter Medical History PCOS Medical History Endometrosis Surgical History tonsillectomy Surgical History D&C Surgical History laparoscopy 08/2021 Surgical History C section 12/2018 Hospitalization History Dehydration 2000 Hospitalization History Miscarriage D&C [employer] Other Summary Purpose Family History No Family History Records FoundNo Family History Records FoundNo Family History Records FoundNo Family History Records FoundNo Family History Records FoundNo Family History Records Found Advance Directives No Advanced Directives Records Found Advance Directive Response Recorded Date/ Time Advance Directives No December 15, 2017 6:21pm Advance Directive Response Recorded Date/ Time Advance Directives No December 15, 2017 5:21pm Chief Complaint and Reason for Visit Chief Complaint S82.114A S82.114D S82.114 Chief Complaint g47.30 r06.83 f51.8 e66.01 Chief Complaint No Energy, Forgetful [facility] Follow Up g47.30 r06.83 f51.8 e66.01 g47.30 r06.83 f51.8 e66.01 Chief Complaint No Energy, Forgetful [facility] Follow Up g47.30 r06.83 f51.8 e66.01 g47.30 r06.83 f51.8 e66.01 R51.9 R42 Z82.0 Chief Complaint No Energy, Forgetful [facility] Follow Up g47.30 r06.83 f51.8 e66.01 g47.30 r06.83 f51.8 e66.01 R51.9 R42 Z82.0 Unspecified sleep apnea Additional Source Comments INFORMATION SOURCE (unrecogn ized section and content) DATE CREATED AUTHOR 10/21/2017 [facility] DATE CREATED AUTHOR AUTHOR'S ORGANIZ ATION 10/22/2017 [facility] DATE CREATED AUTHOR AUTHOR'S ORGANIZ ATION 08/06/2022 [facility] DATE CREATED AUTHOR AUTHOR'S ORGANIZ ATION 05/09/2023 [facility] DATE CREATED AUTHOR AUTHOR'S ORGANIZ ATION 06/05/2023 [facility] DATE CREATED AUTHOR AUTHOR'S ORGANIZ ATION 07/04/[address] [facility] d[facility] Special[facility] EPIC REASON FOR VISIT (unrecogniz ed section and content) Right Knee InjuryNo Informat ionNo InformationFollow uper folllow upRecheck Right KneeNo InformationROM3-4 WEEK RECHECKRecheck Right KneeAPPTaubree morrison 01/14/2019Cough, CongestionMagruder ER Follow upNo Information Care Teams (unrecognized sec tion and content) Team Status: Inactive Member Role Status Dates Amanda Samuel APRN CYBER SYSTEMS ADMINISTRATOR-C Primary Care Provider Active ELYSE Jose Attending Provider Active Team Status: Inactive Member Role Status Dates Amanda Samuel APRN CYBER SYSTEMS ADMINISTRATORFeliciano Primary Care Provider Active Nick Ng MD Attending Provider Active Team Status: Active Member Role Status Dates Amanda Samuel APRN CYBER SYSTEMS ADMINISTRATOR-[place] Primary Care Provider Active Team Status: Inactive Member Role Status Dates Darci Chen MD Attending Provider Active Amanda Samuel APRN CYBER SYSTEMS ADMINISTRATOR-[place] Primary Care Provider Active Team Status: Inactive Member Role Status Dates ROCHELLE Thurston Attending Provider Act gilberto Start: March 17, 2023 End: March 17, 2023 Team Status: Inactive Member Role Status Dates Amanda Samuel APRN CYBER SYSTEMS ADMINISTRATOR-C Attending Provider Act gilberto Start: April 30, 2023 End: April 30, 2023 Team Status: Inactive Member Role Status Dates Darci Chen MD Attending Provider Active S tart: May 05, 2023 End: May 05, 2023 Amanda Samuel APRN CYBER SYSTEMS ADMINISTRATOR-C Primary Care Provider Active Start: May 05, 2023 End: May 05, 2023 Team Status: Inactive Member Role Status Dates Darci Chen MD Attending Provider Active S tart: May 20, 2023 End: May 20, 2023 Amanda Samuel APRN CYBER SYSTEMS ADMINISTRATOR-C Primary Care Provider Active Start: April End: May 20, 2023 Team Status: Inactive Member Role Status Dates Amanda Samuel APRN CYBER SYSTEMS ADMINISTRATOR-C Primary Care Provider, Attending Provider Active Start: May 27, 2023 End: May 27, 2023 Team Status: Inactive Member Role Status Dates Amanda Samuel APRN CYBER SYSTEMS ADMINISTRATOR-C Primary Care Provider Active Start: May End: June 02, 2023 Darci Chen MD Attending Provider Active S tart: June 02, 2023 End: June 02, 2023 Goals (unrecognized section and content) Goals may be documented in a n alternate section FOR RECORDS PERTAINING TO PATIENTS WHO ARE OR HAVE BEEN ENROLLED IN A CHEMICAL DEPENDENCY/SUBSTANCEABUSE PROGRAM, SOME INFORMATION MAY BE OMITTED. This clinical summary was aggregated from multiple sources. Caution should be exercised in using it in the provision of clinical care. This summary normalizes information from multiple sources, and as a consequence, information in this document may materially change the coding, format and clinical context of patient data. In addition, data may be omitted in some cases. CLINICAL DECISIONS SHOULD BE BASED ON THE PRIMARY CLINICAL RECORDS. [employer] provides no warranty or guarantee of the accuracy or completeness of information in this document.
== END 2023-07-07 14:25 | disposition home or self-care (01) ==
LOC: US 14:24
PROVIDERS: PCP Nurse Practitioner Family; Visit Provider Physician Assistant
DX: R10.2 Pelvic and perineal pain (principal)
CPT/HCPCS: 76830; 76856

== ENCOUNTER 2023-07-21 11:27 | Outpatient (OUT) | payer OTHER, SELFPAY ==
--- OUTSIDE RECORDS SUMMARY | 2023-07-21 11:41 | XMS_ITS | CCD ---
Author Organization [facility] Care Team Providers Care Sticker Operator Name Role Phone JOSE HASSAN Unavailable Unavailable FIGJOSE SAINZ A Unavailable Unavailable FARROW, LUTUL D Unavailable Unavailable FIGJOSE SAINZ A Unavailable Unavailable MELISSA, AGAPITO Unavailable Unavailable FARROW, LUTUL D Unavailable Unavailable JAMES JONES (PHILLIP) Unavailable Unavail able MELISSA, AGAPITO Unavailable Unavailable MELISSA, AGAPITO Unavailable Unavailable MELISSA AGAPITO Unavailable Unavailable Nick Ng Unavailable Amanda Mueller Unavailable Amanda Samuel Unavailable ROCHELLE Samuel Primary Care Provider MD Nick Ng Attending Provider [phone] ELYSE Mueller Attending Provider [phone] SHAR[address] ., DR STALEY Admitting Unavailable SHARON [...] SHARON ., DR STALEY Consulting Unavailable MD Darci Chen Attending Provider ROCHELLE Samuel Primary Care Provider Spasic PA, Grupo Admitting Unavailabl e Spasic PA, Grupo Attending Unavailprovidence [facility], [facility] Unavailable Kashk, Anthony I Admitting Unavailable Kashk, Anthony I Attending Unavailable [facility], [facility] Unavailable MD Darci Chen Attending Provider Darci Chen Unavailable ROCHELLE Samuel Attending Provider Darci Chen Attending Unavailable [facility] Unavailable Darci Chen Admitting Unavailable Darci Chen Attending Unavailable Jerricaacher, Amanda Primary Care Unavailable Darci Chen Admitting Unavailable [facility], Amanda Admitting Unavailable [facility] Attending Unavailable [facility]acher, [facility] Unavailable Darci Chen Admitting Unavailable Darci Chen Attending Unavailable BLANK, KALIE Attending Unavailable BLANK, KALIE Attending Unavailable BLANK, KALIE Attending Unavailable BLANK, KALIE Attending Unavailable Allergies Allergy Classification Reported Allergen(s) Allergy Type Date of Onset Reaction(s) Facility (1 source) No Known Medication Allergies; Translations: [No Known Medication Allergies] Propensity to adverse reactions to drug (disorder) [facility] Repository (1 source) Unable to Assess Drug allergy (disorder) [address] [place] [address] Repository Medications Current Medications Medication Drug Class(es) Dates Sig (Normalized) Sig (Original) acetaminophen 325 mg oral tablet (12 sources) take 1 tablet by mouth every four hours Tylenol 325 MG 1 tablet as needed Orally every 4 hrs Active azithromycin 250 mg oral tablet (1 source) Macrolide Antimicrobial Start: 12-26-19 Azithromycin 250 MG 2 tablet on the [...] Interpretation Reference Range Facility MR head/brain wo/w [facility] MR head/brain wo/w [address] [place] [address] MRI Report Signed Patient: Saima Yancey MR#: [id number] : 1995 Acct:[id number] Age/Sex: 28 / F ADM Date: 05/27/23 Loc: MR Room: Type: [facility] Attending Dr: DOUGIE Thurston APRNC Copies to: Amanda Samuel APRN, CNP Ordering [...] Radha Mireles M.D.05/28/2023 8:59 AM Dictation Location: [place] [address] Transcribed By: [facility] 05/28/23 0859 Dictated By: Radha Mireles MD 05/28/23 0852 Signed By: 05/28/[address] [facility] Coding Summaryon 05-08-2023 Coding Summary HTMLBase 64 QewbderyAZd0uEr+PGhlYWQ+PE1FV EMmC72wjCRafY2hK1ZBKIfDLprvRF DZWZhHIrYgfjQdJK2voBNnCWCf IC8+ZX4jENWrUqqgaLCpv7V0lEL7K 94oes1mHUxitOV9DKSrRgUvkygjc3 eumQm3VUghIircBuCw HHCngW87AFG7oC70Pc83bCPriLIjz 8rtaZm6HtUmKMUmEMF1nGdgYIijk5 QiOJHxL58byDNvd6U7 KDTyeWqkoDZiCyMdfCQ9sC6bSKwea hgde2dfnmvcAre1ou27wNFis1C8uD W1C9YyunP6CBGmiETq UxeuqIYHsG6jvvtlm1nozlwuNtNdU AHmHVg1RCo1ASJvnVfxKmDmCC27JV W3LOElxbJcI7CqWCNq eJcjRdW2a1D4Gw9JB1KOZzrqQ4NNJ UFSWTwvdGQ+AL86no76L5SaKdzvVq y9IMYtJNS2kEQ0bN5b ITSdVLbbi4T0aMM8N8BxjoImvl6bo 3aaPWSzRGjoU61gbLTvh3I9WZLqaA V6VBVtiZtbHtGlsI33 Oyc+SLEelIgrr9TbRpxyf6vke4bfs Df4OhqzWFPjfzXlhPrhXJC1f3LqBc 3jIKNkvKO8cBC1xX5g LzHrPxV8NEttA699LhBaeZXbCcznK 16kN2CcnJH+BJPtFfp3ESFwdWpiEQ 8pV7DqIJWvhvhnlUKw wRfyBU3uUPQgfdqxKAApeS1dLDSxT 5l5EiTkAdS8QYaqI1PbOVUmquwvMj 66cW4hRyQyYjR6SAnv F7WvjyM6PHVsrMFhKTpdLWG1J86ey 2Q4KCXoCYFiYSO6tVZ5gZ5hkYbghf ogbGVmdDsgdmVydGlj NFkhDTxkV232KABnaIkfFuXbPHosB yBEYXRlOiAgMDEvMTEvMjAyNDwvdG Q+YUKqFOB3vQhvSJXx hLRzTVfiVg9nzUzhdBceFC6pHWAhb heeMANdkC9rNREkrDDgfCodNA7yIK Gaadgsw286FqHuZIT5 PIWyfXJvG1XolO5yWdRiUHYmCAXpL 0TwpYYsTGuhC424ICwlVdQ7XDDxbo RcE3NhTSAcyAwnCyS9 b0N6Ez4Vk7VfjborU5FmuLYwYhKvR iidTZu1K7DpJctnrEN+PY43MLWsTU 48BMi4BTO0wXscLEln LVHiW2EmpS0hFgPhPEUbBAIeHmw+P HRhYmxlIHdpZHRoPScxMDAlJyBzdH jrKS4bDv0tXUUaFOXz oNtunQNeNqSnr3ugDDHcWWwvSL6ru BewQ5NilJU9XFLex2d9Of70Z73uJ7 JvdXA+POPsvHY7lZW0 eM1pGmAcStG8ZBeoN959MsCojOQqT klfa5ogu4jyuLl9HgU6KVCmrsKnxU lvZEU3q6IlIe27D29a ZDmaRBAyHJKdKOQpPKFuuAtgnw6gr G9wIi8+JHDmpKC3mLI2kQ4rEoAeTt G5GCvnL847WrRwhOIh Qfebf0btx1kolXx4VyQhDKLgkfAhv CswRWD4t9QuHb26T3DzoVuxe5KgBc x8nv92hRRln2G2cOR1 M2DpLSLtikcmhVXqaHdvVH2mSSEnq bumCUThsT8zNPVeN7o7DnJsFlC3JP lwU2WmtnI1TVXfxQMz EWHtwFCKsI6agzmaf4pazgvyIvLoX AJfITa2CJm3KSLrlElfIqOkRVT1Ky P3VGV8wULmxL9tpJce gtmrxH6vIzm+FZN0bFLcnYPTYW1zC jwvdGQ+MUZaGEC0eCovMQaiLURnrY 8aEFJqF7x3ZjZjXjU9 FHspR1LxupP9XFQttCWvKAXpaSBCn N2xzzvew5rnnieiVhVtSHSrHDs1HN e7DGOlfNvzFxHwLUI2 RqD8EZR4zHIltJ4dbQvgxhferP9eC yc+KoognXodMVM1BWc6L1CwVzi0KF UjcBcpZS3guLGfYUec Px6wxOutmHjaZU4gPDQekzpcf314Y zUqp1bhLKNanQGpDCebPEZ6C30fe1 P9BBLcSFKzDMI5rTI9 bE5qeSivbkfaxPTaqPbnwrEyqAzpA EqeQTquB166XFLfkFllZeReEWk5E5 JcQqg7FVPdpZrvVN8y cNCvOBviRg2osGjcbRpkMF1xNUOnt ttqf361RnIdi1fuLVCobPRxXTuwIS N8P65iz7K1KOSyVKTy KCF6oRI6eM5bfIioiopvmZPbjMmww iYpkZizFKebUQirS388IDZhmAwmJf QvwEm6A3PuMgc6HJSb gAneYT7lbIHoOMavMb3hpXnbvKytD F6zTPPbyrtcy088WuXnm7vhOKPevC ByTOfhRDJ7I66qw8S4 BGFjNQRaMAP9yFP5vA4bsBpuzqjnx BXasFczcrKvlPujZAugKVuwV836LY RvcDsnPlBhdGllbnQg WKhwLZd8E6CfDqkgbHP+HU05RULkQ B67dCAlpOAmv7mlqHy7RjJoNIWsCW M5dDdtNThwq2DgOBYg P06bjSDaa2Y4RDDlyBbwkCLfYoDyr VE7sO8nOKunaghgj7dlgxayAsbdi8 kmeh24xE92E33fGCve WVDnWUAhKQTeXCVtsAqdyh5gnF3gX i8+KBNeoLW6uDM5fA9iOSKiOoP8KI qaC464GvJraVLrDsfp q6pns9ncfSy2KqX7KXCaigGbsTpzO XZ0u3HaPv51U11aYFwbYTEoQFJuGM SmGTDbeEyynl0qvS4c Ii8+LZAmyCA1iZS6mE1cLxOrFuY7E StkE626YgRexCFdMprsD66aO0PfxB A+ICEbKdj4AMYslPsd OV4dnXPxRSayRv3sYIX5YnSfWzPaF NlsH8MmWDIsthythxigjET3OHMgNY MkoN61Ot4snDflPQIu eWNWnN6nulkxl6epbptmQfFhYNXeV Fe2SNn8FHGbbMipCuRuAUX0GhD3EB S7sMWhvX6rvSidbpgy eO0bG2TvPVYtnfxfNg96nB5aVpPkT dO0GHpsJbq+GLTBCGGLAuheU3uFUP NWMPkEZw10U1FrTcz6 VLOguDtoZC3mwNExAOisUs7agEekp GexKS7mTFYssmvtZJMdvA5vXCNciF LtsHhcFL0xWVPebhyi u799SaTaFOQ1TKXvaCBhN3QemW0pU qPjPCOdYXGeA3JqsCRzDKjhF555MS pcWhT9PTIxczImS4Uf KCJgiCoxJhG0h4F6Qo3gTc9pLh4tJ Ow5WD48TE40oHLza3E8xXE9E2WxTE MoccaqroltjLJ5DEXy CJKntH31mASdFUhtBr6wd8O9d335X DGbPHEdjD63Ka8qiFxuBUTjdQGTzX 1anasnc1cpkvckHoTk YIUrTSt9HLn1FELehPcbPsWyNEI2S nZ0RAL0xUUypG2myYtsmuwdcZ2uLt c+CyUxLXHhqzK8X8Fc Bmv4USDozRqaYC0ctRKuFLugZj6ic CnewVdbOF1hQTQgpmteLBKsrY5tBE AhqYSjxNibEE5qQAJc cvobm876LxAaVEH3QZJpcQRyE3Zmy W8tTtTkXAVoEELvW3UucJIwKMrxY9 32VNjwRbM7WHRqnzMf G8YmILSujNsaCxK7t7Z1Vo1FSZ2GB AJ2G4UqExa9UYUlqUklHX3eeHYhXQ giEh1zzMimbReoEP0o UGEaqzlgXSMkzW8pOAWzuDDcbRsoK V0tXRUiwsruz799VgDqVNI3UMXfqP OwM8ZcvZ7hPuNbFPHd THKtV0PttREyIZbkT591UWroCvB2N NXjctDqQ3ZvTFAweYkaSpG3u8Y0Ye 8XyRYwX6CxG5g3G1Cl PjwvdHI+TM24JUTqQP18aUTmvEKhz 7amvHs3QxEiYQZrCDT0fLobVUngv5 ArOIZnA77byWXlk8D6 TGAbzUisdSHaYdOwxFX7tZ6jZBvyk tlut1ecxdluUsdpz6lklr91nN56L6 9sIHdpZHRoPSIzMCUi ZZVcfKudmv2zhR9vPt7+NNDlkGM1i AY9hM3zIxSbHxV3FXixF718XxMyyQ WiQpwcl7gio1vuyPg5 VjZgUANxosGczOahYQZ6v0EdTo17A 29sIHdpZHRoPSIyMCUiIHZhbGlnbj 4zxC8qAu8+QR9qa7ql ye17yX63tEO+DMNwTER5gWucIIcjU YTwpU4jBXosZfD4IJVhEtFekD68fU DeQSofIi1ahGbkeDzh WZ3oAASbkqsss451CxMbj6axEFFfy HXaQRhqWBX6Y26kh1L6WMIzWRLxFB L4tFX9iR0zeJjaqeka sDXndWwoohKgkOvpVVapDBomB724I QNqmCrpPmQjgSBnI7ecjrGLDW8yHl wvdGQ+RRGhAIR7rBcz EFenDSCpuT1vADRrM3g0IiQoUyP8Y SrfO1UzjlF2LXOtyZIbJICeaSFDgJ 5sqpiof8nmpqoqDgKj SFYqWTu7QPh9XOWzyJljPcGcVTP4C uU5KID1xXFidA9xmVasqzechG5oGl c+RklOOjwvdGQ+PHRk YLE7sXgrGRcsBYQtoR5lDRNdK7p7H xHgTfW2KNykW4ObfyE3XECcwXHbMA LbwXFDsX2zghlzj7he diyfGvJdKUXmQWv8QRt9BNPbvSsoY fEbAMF2HmD7WNK9aDZzsK3wiDnwuy yqeT1aJuv+TVJOOjwv dGQ+BGFvJFB4zFbuAKobKQPmiN1nA DPtM5d5YwYlOyQ2ELhbT5ZzhkR7TN ExwGOxRGWpmTMRmX5h ztfai9szevnhLlHjYFEvIEe1KYb9K PIcjHhwMfRtLBR4QaO4TSN7qKDwkQ 0noKywzupcbV9oPfk+ RHB8KAH9DD85NY90J0QmVfgekANdq +PHRhYmxlIHdpZHRoPScxMDAlJy AenTriBT7eFr6gPGAl LWN (more content not included)... [facility] Electronic Messagingon 04-27 Electronic Messaging --- --- --- --- --- --- --- --- --- From: Directandrea ([email or web address]), Directtest To: SAIMA YANCEY Sent: 04/27/23 05:06:20 AM EST Subject: Discharge Summary Ready to View A summary regarding your recent visit is available in the Documents section of your Health Record. Normal [facility] ED Clinical Summaryon 2022 ED Clinical Summary [facility] - Emergency Department [address] [place] [address] ED Clinical Summary PERSON INFORMATION Name: SAIMA YANCEY Age: 28 Years Sex: FEMALE : 1995 MRN: Acct#: Visit Reason: Headache; HEADACHE, NECK PAIN Arrival: 04/26/2023 07:37:50 Discharge: 04/26/2023 09:32:00 LOS: 000 01:55 Check In: 04/26/2023 07:37:50 Checkout:04/26/2023 09:32:00 Address: [address] [place], [place] [id number] PCP: Amanda Samuel CNP PROVIDER INFORMATION Provider Role Assigned Unassigned Vivienne STILL, Virgie ED Nurse 04/26/2023 07:39:31 Anthony Rios MD [...] Follow-Up: With: Address: When: Amanda Samuel [address] [place] [address] Business (1) Within 3 to 5 days Comments: Call for follow up appointment DIAGNOSIS: Migraine Patient Understands: Yes - Patient/family/caregiver verbalizes understanding of instructions given Comment: [facility] ED Note-Nursingon 04-26-2023 ED Note-Nursing Patient arrives with c/o headache that started around 1700 yesterday. Pain rated 6/10. Patient last took ibuprofen 2 hrs prior to arrival. States nausea and eye pressure. States she started Addipex 3 weeks ago no other medical hx. [facility] ED Patient Summaryon 023 ED Patient Summary [facility] - Emergency Department [address] [place] [address] PATIENT DISCHARGE INSTRUCTIONS Patient Information Name: SAIMA YANCEY Age: 28 Years Date of : 1995 Reason For Visit: Headache; HEADACHE, NECK PAIN Arrival Time: 04/26/2023 07:37:50 Primary Care Physician: Amanda Samuel CNP Attending Physician: Anthony Rios MD Comment: Visit Diagnosis: Diagnoses This Visit Headache ([id number]) Migraine (G43.909) The Pharmacy at [facility] is open Friday through Friday from [...] alcohol and/or drug addiction problems; contact the [facility] 18/11 Crisis Hotline -Text 4HVVQ hn 215627. If you received any narcotics, sedation, or [...] With: Address: When: Amanda Samuel [address] [place] [id number] Business (1) Within 3 to 5 days Comments: Call for follow up appointment Medication Information: The exam and treatment you received today in the [facility] Emergency Department were for an urgent problem and are not intended as complete care. It is important for you to follow up with a doctor, nurse practitioner, or physician?s payroll assistant for ongoing care. If your symptoms become [...] so we can reach you if necessary. [facility] Emergency Department has provided you with a complete list of medications post discharge. Please inform your social services counselor/provider of your visit and for further instruction [...] Eating or (more content not included)... Normal [facility] PROGESTERONEon 07-17-2022 Progesterone <0.1 Normal [facility] Comment on above: Result Comment: Foll icular phase 0.1 - 0.9 Luteal phase 1.8 - 23.9 Ovulation phase 0.1 - 12.0 First trimester 11.0 - 44.3 Second trimester 25.4 - 83.3 Third trimester 58.7 - 214.0 Postmenopausal 0.0 - 0.1 Performed By: #### P BUDES #### [facility] [address] [place] [address] Dr. Aaron Flores PREG QUANT HCGon 07-15-2022 HCG QUANT <1 Normal [facility] Comment on above: Performed By: #### P REGQNT #### [facility] [address] [place] [address] Dr. Aaron Flores HCG RANGE SEE BELOW [facility] Comment on above: Result Comment: 5-50 0.2-1 WEEK 50-500 1-2 WEEKS 100-5,000 2-3 WEEKS 500-10,000 3-4 WEEKS 1,000-50,000 4-5 WEEKS 10,000-100,000 5-6 WEEKS 15,000-200,000 6-8 WEEKS 10,000-100,000 2-3 MONTHS Performed By: #### P REGQNT #### [facility] [address] [place] [address] Dr. Aaron Flores Coding Summaryon 06-10-2022 Coding Summary HTMLBase 64 TiwgdfajWBl8gLa+PGhlYWQ+PE1FV VCfI06rbLKypJ8EE8kWWR9VXQRLRJ TSFS1HYS0spHO5LXauG0AzgfGz FyiolWXbGS86ARl3STB6dOlsLArty N5nyVHlN6n3OrGkXN28fX82AVzyRG UpApE8HnFqyfxkcCXd T8syBrXqxXWtSov+PHRhYmxlIHdpZ YBaTCkrDDDzOwUgkGyoVI0qOt6iCE VyLWNvbGxhcHNlOiBj t6ebZFLsOVboOD4uyEyrJ6ZufSX3Z IJnw8a3Sj45dAD+UEOuTKZ9zZxdZH yiu199AeVey1rzKHQ2 iAUmMOhtFQR3N15vh6Y2FFUkMGHkZ QZ4qLN7pQ3eoSlkypklK6MyqOOyOb Y7JOQ0yKOyyS1duHsj wgeiqD8eIth+G11CEX3KQSYGWP4UW uf4B8GmPmumbMW+XE61JMCtQR03qZ JvbNUxd8rleTq3IqKa VAPpNCJ9sEqqKShvg2LmZIKdZ92ss AQhl8O8ZHDvkTgdbKGkSvHoqGZ4fF 4aREozudpjq7yorjum Rdesh3uyxa26yI75M01yFLquUOZfM AI5YYAoBPOkyMklgu8qqT9lSq4+ID fdq6cmw5droGx3GdOo OIEirtHfcNfpXKR4w9VdTq90O7Ayy Ymuj3MaJiq3af73oALyv2B8aDU3HX jqHCKhtT6dQIdhAwU9 DZHiWyFfaG16vESqWPvzXp4pvYpzp SitJJ4mIGYkcpqsEIOdbK8zYVBujW QybFfdDV9nVYHytjcv c669YsXhDMF5NNLglDCrN6WuoA9pX bKeUHNlNWCqG7KbdBCwLLbvJ671QN gpFhW2PYVetfPtQ2Ma VNPwsItcVgO8p6H9Wk7Sq9LmczcmV YI5MVsfVKDvZvCuJwMlEoI0K8MyIk b3HYXrwOnaSK9wQ6Ij KUTgfznipfmncPD3FSDvRSDxrT40p KMxOTegWc7gb6K3b820XUGnXRIiiI 48Tk3elVseZBFhnERZ rK9uxgcit0piexboCwXlJCRnRNe7Z Jm4OPBzeMnrRtVnEZR0FjI8CNM7qI QbxJ3leLdswacwcA8d Oyc+I65vfJ6iRHT9YIS0plhiZNJby fGrLW98PQ90B1DzHlbnoJBwpET+PG ZskeXhgPafUP5kIqIy i9elm4ZbBJjiP9VeUUMxLGuiDkf5G OJtMEB4iCZ5vJ6bYGBlHPgwh4W0fG U4P2JicmEngh4sj5dj UBCzVVzgJ54lpBJmh7R2GGDtfRB3E AJvhNdhGiIncJ70Smt+PGNvbGdyb3 JzVjenw4obp3locTj9 WgAbGCIcpwRqpKodFSB8n8NyHt90J 29sIHdpZHRoPSIxNSUiIHZhbGlnbj 7krH4rDz3+PGNvbCB3 fTV1eT3nLPVdGpO8XPqiF978YuVzq MJkTyrqn1xzn8nttGd8GdXhWXWhyk HxhHlnPWU8m3BuRl56 F67yGItmDMGsJGMlBXXmALUchJqsu z7qgB0dEe3+FD8ur6zjik39oW03xI I+EIQlUNR0rTpeRHds WFMreD4sHJyrOlJ8YSQuXhAnsR65w BLxQAthIc9bxCjduQppAM8bIKNaal wto924FuOwv6zgXRTt yIZlPQfgEDY7U40vu2J5JZRlWZYqP QN1eUG8mA9rqIrsradabIUshMbwis VfxAgpTLetLJrbU313 XYJlaSebMpXtmFbgduRoPsGzJYh0I 5GtSuz6BGAjlHpnQV2hyZBbFCejHd 2arYrccTayNM7gWBIg utgxc907PsCgf3lhPGRfxJAaEHjkE QI9Z86fx5W3HPApEOCpWWB9wUR5hH 1hbGlnbjogbGVmdDsg rcXpsQfjSPxjUCgbP764TEJbfUnxB bBqmjJyBBJemJQ7WC81LN61eCSdh8 Y4yHY7L5IdHVGvfdmh tsgzdOV2YVHoBKIquX69Lw9hsCixC i3xYOOhTUR3QZFveBYbZ0FirX2dZb WgJBPjCQHdG1IuyWAs LQmqN822RSngPpL8TOEsefPvR3XfT SWjdPasYeN3v2Z2Qd1NM5T2BA53XY 07xXQxq9N4wKA8A4Px CJBefpuwzwinkNC1YLDgIFTuuN26O h4glVgdZb0tJBZhNKO2CQGrgXSyO4 GisG8cEmHwSBOjCKBr V9FxnCCoYKnuJ891ZYdoNuV1GDCpq fOmP8HtCZFhlPbiLlJ2a8S4Yi0ULK u3YB43SY46bCUzz8K7 rND4Q6CvFEPmyaqtleofaAG5VVKbO HQobK16Hw3umKzrRh9tZVGgSQA0WO DfoDMdT3VrsT5mExOo QDXdGKNlA4EhhBPiYEikJ295ZAexM rI2RBGqgoUhK1YpCLMxbPrlOaE2e7 S3Ni6VXMRlJC14AAT6 mVV0EJ08OI46T7HqIfdrrRDgrQW+P HRhYmxlIHdpZHRoPScxMDAlJyBzdH snJD6xXu0pZZNlTSGf fLfcsJOgDiCit2dgCYGzDPfqSY8wd YhfD7YboMY6KBSpd1w5Am54X09cP8 JvdXA+RZZizQR1fWL2 fC5nWnFdPcT3NGafP463YbYvgLZnG uiqa4wmk6gqiMp0FkX4SWYzxcRyyH jbTEK7b6WgAo15C20v JUicXIUxXVMzPIVrZTZsqHhfcf8jc G9wIi8+NFEzhTX9iDA3eM9lEcVjWo T6KRlsE192KkEloBSv Askov6qeq2xtvCf4PlLrNHHepcFpq LiuKCK1e4QzSl47K3KmqZjcl9PiKe x3qw92yFPss4X5hYW5 W2MkRNEggcqtrUGqxBnjZI4cSAIdu unpMUUcdY4jMPYzG2v5CuSzMfQ5KW hwX8InpcQ3AKNvzDQz BBjeWXW2G77ni1C7FZHiSHXwKNU5v ZY5vT1uiUrvkplymNXzsPpyxmJoqA hcWIxnIUchF318WJTs sPpmLZEvkQ9oCEOecKVacMymIE1gX SExzwetZjVKJ7LUUPFwBXXXJJuVIN OJQB9RPY95TL07vETb v6D6jXU4Q3MzWLDgsjfkibbtkQP5G DDbPSSxcW27wJWaUBdmZi0xg4J6m3 97EJRcZQJulG67Jq8d zGsiQWYwxLJBvF5zznlju9ifriuyH mZxHSNwFIl8NJh4YNAyePjoHtHdYI X8SdT2EYQ2zBTwvW6i kEnkxepjcH2vPhj+OUSwEJGpLBw7V zwvdGQ+YKKiIXB5xHhoRAoeMUAotF 4hEMJyZ4o1HwJbVuY6 CVnoY6KdVDLkzvjeCm55zY0yPgIdF nX5NYbmV2MjloD3UAVhuGCeIQnbOR C7K40mb2X2TRHuMZBe SHI2vCD2tQ1cpSkebmszeWUjxMsmu iHjmSiuBCmjYWkeI923VNWuhGpmRa S2VHiwUNAaTS22VB94 hUEhh4H8zSG7J5YdIQLbfiogvnqvr BP5VQFcUXDraH44lWPkCDcfKy5te2 O8h926OOYhEVZubV69 Qp2zzTubANPqsYMRvB3limpur7jhb rgsYpFyXKPmAGs9DSd3TEMprRndMk HsENZ5SnQ4KWI0lJLx lY3utZusdwlvsV7kGxj+RkVNQUxFP D38MI46cTWzr4J5yJD9I2UrPFDyae balftjnBP9GAKvCKRq mZ52zOSnODqoTv7qu5X5u383IJFwO EOapJ90Gi2sjVswUTUsdBWWiK3zwg liq7qpxgyjFqNqESGe ODf3WFh2EEFoyXnwAmQdJAS3AfR7Z SA5lTCboX8bzBzsworfrE3cIki+T1 E5V5YbMmgyhKS+PC90 ZDFpTJ15gCFvlUTfk5lubRp8WiFmF PFdDEV0pFlfCWwmb3YzABVaJ78fnO Eby9F9FGPnpQmhfOLm BhCncJN8gA3pHRovrmgtu5nzvdcoP emvj4lwkq38tS05R28mNWcuAXRnIB HpXJMoIPYymVgiub8r sA0zOe2+GOEvzQF5aNO6jW7eYpVvL fW7WKlbO836FyNjlAQxAhajc3sou4 lazGf1AmKyBDEwkmQo mQixEFN3j2MiGs64C54qIQwpSJXlU ZBvTYVlWXKzgYjhrl1omL8bLu3+PC 1qy6jqti48pH94kBD+ SPQzHPH8yCesHYkyFWGdrJ0uQPyxR jU8LRHiIvSmdV62aAWmHCihPm2quY cdcDdjFX9qYTTdzgcz x294LgGgj4mkJIZnwRFwZMtvUJA4Z 04br7O7FPEeAETtSQR8dDW9yT4lrE lnbjogbGVmdDsgdmVy cLoaMJghENptN990AVYgnZltShCgq PTcL6dkpgRIAL1gTrmyoQZ+PHRkIH N0gMroVNofSCLbeV5e HVVeZ8t3VdWcCiW4FHysT3WqtfI4G IKqrUAvYFBcyYREuG6ilgleu4ruli xtBlCpXKLhGAj2OVh4 MXWksYsqPoEvCKO0GrF0DCP7kWXjp T4cjIptfriouU4sOpy+RklOOjwvdG Q+YJGeVOI1qIaiRSqd PBKdmM7oGVHnX2t8NgYyZdE8TIfwF 9IbuzH5FNJleFIdOUUzzJKHtE3lzi aen4dvgzutLyPbSZSq PXi9SEs4LNOekQskApNcKYA1UkX4V HT8zSQplB9rxNdieinjxT7lStc+TV JOOjwvdGQ+PHRkIHN0 tNyuVKlxJBHzwH0kRFHdH0f9BxHpQ uM7SXjqB1XxmmR1ICEygOVpXAEuqQ WRuR2khgoyk4yxqrar WqAkJTLiRLm6WUj8JWLvhAnqHiNfE UP2AiW7RUE2tZBzmT5mqHuxjgrzvN 9wOyc+YPG7JDM9EZ98 JE03V6LcRbfrpYQatKI+PHRhYmxlI CsxNUWfIIdmHLLkOwLigJxzXP2zBt 9yZGVyLWNvbGxhcHNl OiB (more content not included)... Normal [facility] C Throaton 06-08-2022 C Throat Ordered by Discern. Normal throat zakiya isolated No pathogens isolated Normal [facility] Comment on above: Performed By: #### [id number] #### [facility] (DEFAULT) [address] [place] [address] ED Clinical Summaryon 2022 ED Clinical Summary [facility] ? Urgent Care [address] [place] [address] Clinical Summary PERSON INFORMATION Name: SAIMA YANCEY Age: 27 Years Sex: FEMALE : 1995 MRN: Acct#: Visit Reason: Throat pain; UC - Ear Problem; SORE THROAT Arrival: 06/06/2022 16:43:19 Discharge: 06/06/2022 17:26:00 LOS: 000 00:43 Check In: 06/06/2022 16:43:19 Checkout: 06/06/2022 17:26:00 Address: [address] [place], [place] [id number] PCP: Amanda Samuel CNP PROVIDER INFORMATION Provider Role Assigned Unassigned [employer] ED PA 06/06/2022 16:54:23 Samantha Mg [employer] Nurse 06/06/2022 17:01:03 VITALS INFORMATION Vital Sign Triage Latest Temperature Tympanic Temperature Temporal Artery Pulse Rate O2 Sat 95 % 95 % Respiratory Rate Blood Pressure /80 mmHg /80 mmHg MEDICAL INFORMATION Medications Given: Allergy Information: No Known Medication Allergies PHYSICIAN DOCUMENTATION DISCHARGE INFORMATION: Discharge Disposition: Home Discharge Location: Home PATIENT EDUCATION INFORMATION Instructions: Sore Throat, Cfbz-kv-Cwgr Revised ([facility]); Otitis Media, Adult, Accl-mm-Wrhb Follow-Up: With: Address: When: Amanda Samuel [address] [place], [place] [id number] Business (1) Comments: Begin on the amoxicillin, [...] verbalizes understanding of instructions given Comment: Normal [facility] ED Patient Summaryon 023 ED Patient Summary [facility] ? Urgent Care [address] [place], [place] [id number] PATIENT DISCHARGE INSTRUCTIONS Patient Information Name: SAIMA YANCEY Age: 27 Years Date of : 1995 Reason For Visit: Throat pain; UC - Ear Problem; SORE THROAT Arrival Time: 06/06/2022 16:43:19 Primary Care Physician: Amanda Samuel CNP Attending Physician: [employer] Mcnamara Comment: Patient Education With: Address: When: Amanda Samuel [address] [place] [phone] Business (1) Comments: Begin on the amoxicillin, [...] Follow these instructions at home: ? Take gnim-poh-guoeyix medicines only as told by your doctor. [...] 01/21/2009 Document Revised: 12/08/2016 Document Reviewed: 02/02/2016 [employer] Patient Education ? 2019 [employer] Otitis Media, Adult Otitis media is [...] Take over- (more content not included)... Normal [facility] Strep Aon 06-06-2022 Strep procedure control Pass Normal [facility] Comment on above: Performed By: #### [id number] #### [facility] (DEFAULT) [address] [place] [id number] Streptococcus A Negative Normal Negative [facility] Comment on above: Performed By: #### [id number] #### [facility] (DEFAULT) [address] [place] [id number] Urgent Care Note- Provideron 06-06-2022 Urgent Care [...] Resolved Disease caused by 2019 novel coronavirus ([id number]): Onset on 05/03/2021 at 26 years. Resolved. Comments: 05/03/2021 [employer] 18:07 [employer] - SYSTEM Problem added by Rule (IC_COVID19_AUTO_PROBLEM) [...] Impression and Plan Diagnosis Right otitis media (BGU17-OS H66.91, Discharge, Medical) Sore throat (YHR56-BK J02.9, Discharge, Medical) Plan Prescriptions: Launch prescriptions [...] the following educational materials: Otitis Media, Adult, Stko-ry-Yndq, Sore Throat, Joom-vh-Adnl Revised ([facility]). Follow up with: Amanda Samuel [...] instructions. [Electronically Signed on: 06/06/2022 17:20 EST] Spasic PA, Grupo [Verified on: 06/06/2022 17:20 EST] [employer] Normal [facility] Recordon 023 Urgent Care Record [facility] ? Urgent Care [address] [place] [address] PATIENT DISCHARGE INSTRUCTIONS Patient Information Name: SAIMA YANCEY Age: 27 Years Date of : 1995 Reason For Visit: Throat pain; UC - Ear Problem; SORE THROAT Arrival Time: 06/06/2022 16:43:19 Primary Care Physician: Amanda Samuel CNP Attending Physician: [employer] Mcnamara Comment: Visit Diagnosis: Diagnoses This Visit Right otitis media (H66.91) Sore throat (J02.9) Throat pain ([id number]) UC - Ear Problem ([id number]) If you received any narcotics, sedation, or [...] documents With: Address: When: Amanda Samuel [address] [place] [address] Business (1) Comments: Begin on the amoxicillin, take every 12 hours for the next 10 days Alternate tylenol and motrin for any pain or fevers Stay hydrated, drink plenty of fluids Follow-up with your primary care physician in 3-5 days for reevaluation, sooner if any worsening symptoms Medication Information: The exam and treatment you received today in the [facility] were for an urgent problem and are not intended as complete care. It is important for you to follow up with a doctor, nurse practitioner, or physician?s payroll assistant for ongoing care. If your symptoms become [...] so we can reach you if necessary. [facility] has provided you with a complete list of medications post discharge. Please inform your social services counselor/provider of your visit and for further instruction on these medications. Any specific questions regarding your chronic medications and dosages should be discussed with your primary care physician(s) and/or pharmacist. New Medications [facility], [address] [place] [phone], [phone] amoxicillin (amoxicillin 500 mg oral tablet) 1 [...] Follow these instructions at home: ? Take locp-ndo-sonevwi medicines only as told by your doctor. [...] a salt-water (more content not included)... Normal [facility] PREG QUANT HCGon 06-05-2022 HCG QUANT <1 Normal [facility] Comment on above: Performed By: #### P REGQNT #### [facility] [address] [address] [address] Aaron Flores HCG RANGE SEE BELOW Normal [facility] [facility] Comment on above: Result Comment: 5-50 0.2-1 WEEK 50-500 1-2 WEEKS 100-5,000 2-3 WEEKS 500-10,000 3-4 WEEKS 1,000-50,000 4-5 WEEKS 10,000-100,000 5-6 WEEKS 15,000-200,000 6-8 WEEKS 10,000-100,000 2-3 MONTHS Performed By: #### P REGQNT #### [facility] [address] [address] [address] Aaron Flores PROGESTERONEon 05-08-2022 Progesterone 9.0 ng/mL Normal [facility] Comment on above: Result Comment: Foll icular phase 0.1 - 0.9 Luteal phase 1.8 - 23.9 Ovulation phase 0.1 - 12.0 First trimester 11.0 - 44.3 Second trimester 25.4 - 83.3 Third trimester 58.7 - 214.0 Postmenopausal 0.0 - 0.1 Performed By: #### P ROGES #### [facility] [address] [place] [address] Dr. Aaron Flores PREG QUANT HCGon 05-06-2022 HCG QUANT 1 mIU/mL Normal [facility] Comment on above: Performed By: #### P REGQNT #### [facility] [address] [place] [address] Dr. Aaron Flores HCG RANGE SEE BELOW Normal [facility] Comment on above: Result Comment: 5-50 0.2-1 WEEK 50-500 1-2 WEEKS 100-5,000 2-3 WEEKS 500-10,000 3-4 WEEKS 1,000-50,000 4-5 WEEKS 10,000-100,000 5-6 WEEKS 15,000-200,000 6-8 WEEKS 10,000-100,000 2-3 MONTHS Performed By: #### P REGQNT #### [facility] [address] [place] [place] [address] Dr. Aaron Flores PROGESTERONEon 03-10-2022 Progesterone <0.1 Normal [facility] Comment on above: Result Comment: Foll icular phase 0.1 - 0.9 Luteal phase 1.8 - 23.9 Ovulation phase 0.1 - 12.0 First trimester 11.0 - 44.3 Second trimester 25.4 - 83.3 Third trimester 58.7 - 214.0 Postmenopausal 0.0 - 0.1 Performed By: #### P ROGES #### [facility] [address] [place] [address] Dr. Aaron Flores PROGESTERONEon 01-04-2022 Progesterone 0.2 ng/mL Normal [facility] Comment on above: Result Comment: Foll icular phase 0.1 - 0.9 Luteal phase 1.8 - 23.9 Ovulation phase 0.1 - 12.0 First trimester 11.0 - 44.3 Second trimester 25.4 - 83.3 Third trimester 58.7 - 214.0 Postmenopausal 0.0 - 0.1 Performed By: #### P ROGES #### [facility] [address] [place] [place] [address] Dr. Aaron Flores CBC AUTO DIFFon 09-14-2021 BASO # 0.0 103/ul Normal 0.0-0.1 [facility] Comment on above: Performed By: #### C BC #### [facility] [address] [place] [address] Dr. Aaron Flores Basophils/100 WBC (Bld) 0.4 % Normal 0.2-2.0 [facility] Comment on above: Performed By: #### C BC #### [facility] [address] [place] [address] Dr. Aaron Flores EO # 0.1 103/ul Normal 0.0-0.7 [facility] Comment on above: Performed By: #### C BC #### [facility] [address] [place] [address] Dr. Aaron Flores Eosinophils/100 WBC (Bld) 1.1 % Normal 0.9-7.0 [facility] Comment on above: Performed By: #### C BC #### [facility] [address] [place] [address] Dr. Aaron Flores Erythrocyte distribution width (RBC) [Ratio] 11.9 % Normal 11.0-15.0 [facility] Comment on above: Performed By: #### C BC #### [facility] [address] [place] [address] Dr. Aaron Flores Hematocrit (Bld) [Volume fraction] 46.0 % Normal 36.0-48.0 [facility] Comment on above: Performed By: #### C BC #### [facility] [address] [place] [address] Dr. Aaron Flores Hemoglobin (Bld) [Mass/Vol] 15.1 g/dL Normal 12.0-16.0 [facility] Comment on above: Performed By: #### C BC #### [facility] [address] [place] [address] Dr. Aaron Flores IG # 0.00 10e3/ul Normal 0.00-0.03 [facility] Comment on above: Performed By: #### C BC #### [facility] [address] [place] [address] Dr. Aaron Flores IG % 0.0 % Normal 0.0-0.5 [facility] Comment on above: Performed By: #### C BC #### [facility] [address] [place] [address] Dr. Aaron Flores LYMPH # 1.7 103/ul Normal 1.2-3.8 [facility] Comment on above: Performed By: #### C BC #### [facility] [address] [place] [address] Dr. Aaron Flores Lymphocytes/100 WBC (Bld) 31.9 % Normal 20.5-60.0 [facility] Comment on above: Performed By: #### C BC #### [facility] [address] [place] [place] [address] Dr. Aaron Flores MANUAL DIFF REQ NO Normal [facility] Comment on above: Performed By: #### C BC #### [facility] [address] [place] [address] Dr. Aaron Flores MCH (RBC) [Entitic mass] 29.7 pg Normal 26.7-34.0 [facility] Comment on above: Performed By: #### C BC #### [facility] [address] [place] [address] Dr. Aaron Flores MCHC (RBC) [Mass/Vol] 32.8 g/dL Normal 29.9-35.2 [facility] Comment on above: Performed By: #### C BC #### [facility] [address] [place] [address] Dr. Aaron Flores MCV (RBC) [Entitic vol] 90.6 fL Normal 81.0-99.0 [facility] Comment on above: Performed By: #### C BC #### [facility] [address] [place] [address] Dr. Aaron Flores MONO # 0.3 103/ul Normal 0.3-0.8 [facility] Comment on above: Performed By: #### C BC #### [facility] [address] [place] [address] Dr. Aaron Flores Monocytes/100 WBC (Bld) 5.4 % Normal 1.7-12.0 [facility] Comment on above: Performed By: #### C BC #### [facility] [address] [place] [address] Dr. Aaron Flores NEUT # 3.3 103/ul Normal 1.4-6.5 [facility] Comment on above: Performed By: #### C BC #### [facility] [address] [place] [address] Dr. Aaron Flores Neutrophils/100 WBC (Bld) 61.2 % Normal 43.0-75.0 [facility] Comment on above: Performed By: #### C BC #### [facility] [address] [place] [address] Dr. Aaron Flores Platelet mean volume (Bld) [Entitic vol] 11.9 fL Normal 9.5-13.5 [facility] Comment on above: Performed By: #### C BC #### [facility] [address] [place] [address] Dr. Aaron Flores PLT 182 103/ul Normal 150-450 [facility] Comment on above: Performed By: #### C BC #### [facility] [address] [place] [address] Dr. Aaron Flores RBC 5.08 106/ul Normal 4.20-5.40 [facility] Comment on above: Performed By: #### C BC #### [facility] [address] [place] [address] Dr. Aaron Flores WBC 5.4 103/ul Normal 4.0-11.0 [facility] Comment on above: Performed By: #### C BC #### [facility] [address] [place] [address] Dr. Aaron Flores PREG QUANT HCGon 09-14-2021 HCG QUANT 1 mIU/mL Normal [facility] Comment on above: Performed By: #### P REGQNT #### [facility] [address] [place] [address] Dr. Aaron Flores HCG RANGE SEE BELOW Normal [facility] Comment on above: Result Comment: 5-50 0-1 WEEK 40-300 1-2 WEEKS 100-1,000 2-3 WEEKS 500-6,000 3-4 WEEKS 5,000-200,000 1-2 MONTHS 10,000-100,000 2-3 MONTHS 3,000-50,000 2ND TRIMESTER 1,000-50,000 3RD TRIMESTER Performed By: #### P REGQNT #### [facility] [address] [address] [address] Aaron Flores Covid-19 PCR ([facility])on 08-26 SARS-CoV-2 (COVID-19) RNA ROBINA+probe Ql (Unsp spec) Not detected Normal NOT DETECTED [facility] Comment on above: Result Comment: This test is not yet approved or cleared by the [place] FDA. When there are no FDA-approved or cleared tests available, and other criteria are met, FDA can make tests available under an emergency access mechanism called an Emergency Use Authorization (EUA). The EUA for this test is supported by the Licensing Specialist of Health and Human Service's (HHS's) declaration [...] SARS-CoV-2. Performed By: #### P SPRING #### [facility] [address] [address] Dr. Aaron Flores PAP ACOG PANEL 2: 21 to 29on 08-27-2021 . . Normal [facility] Comment on above: Performed By: #### P SPRING #### [facility] [address] [place] [address] Dr. Aaron Flores Age Gdln ACOG Testing - Normal [facility] Comment on above: Performed By: #### P SPRING #### [facility] [address] [address] [address] Aaron Flores DIAGNOSIS: Comment Normal [facility] Comment on above: Result Comment: NEGA TIVE FOR INTRAEPITHELIAL LESION OR MALIGNANCY. Performed By: #### P ROGES #### [facility] [address] [place] [address] Dr. Aaron Flores Methodology: Comment Normal [facility] Comment on above: Result Comment: This liquid based ThinPrep(R) pap test was screened with the use of an image guided system. Performed By: #### P ROGES #### [facility] [address] [address] [address] Aaron Flores Note: Comment Normal [facility] Comment on above: Result Comment: The Pap smear is a screening test designed to aid in the detection of premalignant and malignant conditions of the uterine cervix. It is not a diagnostic procedure and should not be used as the sole means of detecting cervical cancer. Both false-positive and false-negative reports do occur. . Performed By: #### P SPRING #### [facility] [address] [address] Dr. Aaron Flores Performed by: Comment Normal [facility] Comment on above: Result Comment: Larissa Lopez, Supervisory Boat Fueler (ASCP) Performed By: #### P ROGES #### [facility] [address] [place] [address] Dr. Aaron Flores Reflex Criteria: Comment Normal [facility] Comment on above: Result Comment: The HPV DNA reflex criteria were not met with this specimen result therefore, no HPV testing was performed. . Performed By: #### P ROGES #### [facility] [address] [address] [address] Aaron Flores Specimen adequacy: Comment Normal [facility] Comment on above: Result Comment: Sati sfactory for evaluation. Endocervical and/or squamous metaplastic cells (endocervical component) are present. Performed By: #### P ROGES #### [facility] [address] [address] Dr. Aaron Flores CNOVon 04-11-2017 CNOV Office Visit (EXPNOL) -SAIMA YANCEY ([id number]) 1995 [facility] Time Provider Jilkbvtepv65/15/17 7:00 PM JAZMIN NIEVES) EXPNOL During your visit today, we recorded the following information about you: Temperature Pulse Blood pressure Weight 98.2 degrees 98/minute 122/67 104.3 kgJazmin Nieves PA-C 04/11/2017 7:35 PM SignedHPI Comments: [facility]- ANDquot; mouth issue ANDquot;HPI- Saima Yancey is a 22 year old [...] history is provided by the patient. No multi disciplined language analyst was used.Review of SystemsConstitutional: Negative for fever.HENT: [...] acidic or salty foods until ulcer resolveISIDRO iH-Sony Nieves PA-C 04/11/2017 7:31 PM SignedASSESSMENT/PLAN:1. Oral [...] of Service: EST PATIENT VISIT LEVEL 3 [[id number]]Disposition: Return if symptoms worsen or fail to improve.Follow-up and Disposition History RecordedEncounter Number: [id number] Status:Closed by JAZMIN NIEVES PA-C on 04/11/17 [facility] PROGRESSon 04-11-2017 PROGRESS HNO ID: [id number] thor: Jazmin Rosa) Sevenervice: (none)Author Type: Physician AssistantType: Progress NotesFiled: 04/11/2017 7:35 PMNote Text:HPI Comments: [facility] Visit[facility]- mouth issue HPI- Saima Yancey is a 22 year old female who presents to the [facility] with concerns of R lower gum pain [...] history is provided by the patient. No multi disciplined language analyst was used.Review of SystemsConstitutional: Negative for fever.HENT: Negative for congestion.Respiratory: Negative for cough.Blood pressure 122/67, pulse 98, temperature 36.8 ?C (98.2 ?F),temperature source Oral, weight 104.3 kg (230 lb), last menstrual njuhep6604/21/2016, not currently .Physical ExamConstitutional: She is oriented [...] avoid acidic or salty foods until ulcer resolvePHILLIP Hi [facility] CNOVon 03-29-2017 CNOV Office Visit (EXPNOL) -SAIMA YANCEY ([id number]) 1995 [facility] Time Provider Pwarhvmekm29/2/17 8:35 AM YAAKOV RIDLEY (SUSANA) EXPNOL During your visit today, we recorded the following information about you: Temperature Pulse Respiration Blood pressure 98.2 degrees 85/minute 18/minute 128/83 Weight 103.5 kgYaakov Ridley CNP, CNP 03/29/2017 9:25 AM SignedHPI Comments: Pt presents [...] ICD10: N92.6- test negative- Follow up with PLACEMENT DIRECTOR/PCP if irregular menses continues- HCG QUAL UR B/Yevgeniy Weldon CNP, CNP 03/29/2017 9:09 AM SignedEXPRESS CARE PATIENT INFOCONJUNCTIVITIS [...] the person should be evaluated by an national account representative.Contact lens wearers ? People who wear contact lenses should be evaluated by [facility] provider before treatment begins; this is to [...] of eye drops or ointment before returning [facility]. This treatment helps to prevent [...] improve within twoweeks, an examination with an national account representative may be recommended.CONJUNCTIVITIS PREVENTIONBacterial and viral conjunctivitis [...] right eye [H10.31] Other Visit Diagnosis:Irregular menses [N92.6]Order(s):HCG QUAL UR B/O [[id number]] Order #: [id number] tobramycin (TOBREX) 0.3 % ophthalmic solutionUse 1-2 [...] the person should be evaluated by an national account representative. Contact lens wearers ? People who wear [...] within two weeks, an examination with an national account representative may be recommended. CONJUNCTIVITIS PREVENTION Bacterial and [...] End TOBRAMYCIN 0.3 % EYE DROPS 1 Ketaon* 0 03/29/2017 Route: RIGHT EYE Sig: Use 1-2 Drops in the right eye every 6 hours.Medications Discontinued During This Encounter tobramycin (TOBREX) 0.3 % ophthalmic* 1 Keaton* 0 08/12/2016 03/29/2017 Route: LEFT EYE Sig: Use 1-2 Drops in the left eye every 4 hours for 7 days. Disc: Reason for discontinue is not on file. Status:Closed by YAAKOV RIDLEY CNP on 03/29/17 [facility] PROGRESSon 03-29-2017 PROGRESS HNO ID: [id number] thor: Yaakov (Susana) STEPHON RidleyService: (none)Author Type: [...] ICD10: N92.6- test negative- Follow up with PLACEMENT DIRECTOR/PCP if irregular menses continues- HCG QUAL UR B/Maya Ridley CNP Normal [facility] CNOVon 01-14-2017 CNOV Office Visit ([facility]) -NAYESAIMA Nevarez ([id number]) 1995 F[birth year] Time Provider Department01/14/17 9:00 AM JAMES JONES) [facility] During your visit today, we recorded the following information about you: Pulse Blood pressure 94/minute 120/77Barbara Roque Jones PA-C 01/14/2017 10:01 AM SignedH[facility] Follow Up VisitS2016 - 9:14 AMSUBJECTIVE:Saima Yancey a 21 year old presents [facility] ManagementDepartment, accompanied by self only, for [...] nerve block Response: 100 % pain relief 1-12 weekPhysical Therapy: NoPAST MEDICAL HISTORYDiagnosis Date- NEGATIVE [...] supervised home exercise program (HEP): No 5. Aircraft Electronics Technical Officer: NoPassive conservative therapy in the last six months (see below) 1. Medical devises: No 2. Acupuncture: No 3. Tens unit: No 4. Prescription pain medication: Tramadol 5. NSAIDS: NoDo you fell safe at home? YesRisk assessment at risk due to fall: Agata Solorzano 2016 - Time: 9:20 AMThe subjective information: including chief complaint, past medical history andreview of systems, was explored in detail with the patient and edited as neededand is complete.ISIDRO Cantu[facility]Physical Examination:BP 120/77 Pulse 94 SpO2 97% LMP [...] to light touch all throughout the bilaterallower extremitiesHoodsRS website checked and validated. All prescriptions have been APPROPRIATELYfilled. No suspicious activity was identified. - January 14, 2017 by Masood Jones PA-C- Ran via [employer] web site - 2 scripts for Tramadol [...] agreement with the above and verbalized understanding.ISIDRO Cantu-CSept2016Referring Provider: AGAPITO TORRES [[id number]]Allergies As of Date: 01/14/2017(No Known Allergies)Date Reviewed: 12/11/2016Reviewed by: Tamiko (Rn) ADEN Gray - Fully AssessedReason for Visit: [...] Status:Closed by JAMES JONES PA-C on 01/14/17 [facility] PROGRESSon 01-14-2017 PROGRESS HNO ID: [id number] thor: James Rosa) Bennettervice: (none)Author Type: Physician AssistantType: Progress NotesFiled: 01/14/2017 10:01 AMNote Text:[facility] Follow Up VisitSept2016 - 9:14 AMSUBJECTIVE:Saima Yancey a 21 year old presents to [facility] PainManagement Department, accompanied by self only, for [...] supervised home exercise program (HEP): No 5. Aircraft Electronics Technical Officer: NoPassive conservative therapy in the last six months (see below) 1. Medical devises: No 2. Acupuncture: No 3. Tens unit: No 4. Prescription pain medication: Tramadol 5. NSAIDS: NoDo you fell safe at home? YesRisk assessment at risk due to fall: NONEKalie NoriegaSoutheast [facility] 2016 - Time: 9:20 AMThe subjective information: including chief complaint, past medicalhistory and review of systems, was explored in detail with the patient andedited as needed and is complete.ISIDRO Cantu-CSept2016Physical Examination:BP 120/77 Pulse 94 SpO2 97% LMP [...] 2016 by James Jones PA-C- Ran via [employer] web site - 2 scripts for Tramadol - last scrip filled05/17/2015 #40Current Anticoagulant Therapy: NoHPI AND ASSESSMENT: .Saima [...] the above and verbalizedunderstanding.ISIDRO [place] ra-Francesptember 2016 [facility] CNDSNOTEon 12-23-2016 CNDSNOTE Discharge Note (enc) (PTFVGE) -SAIMA YANCEY ([id number]) 1995 FDate Time Provider Department12/23/16 TAMIKO SHIELDS (PT) PTFVGE During your visit today, we recorded the following information about you:Tamiko Shields, PT 12/23/2016 6:52 PM SignedC[facility]PHYSICAL THERAPY DISCONTINUANCE OF CAREPlan of Care Period:Initial Evaluation Date: 09/09/2016Last Visit Date: 10/07/2016Therapy Program: The following is a summary of the interventions provided forthis episode of care; HEP, Individual PT, Modalities and Therapeutic exercise.Assessment:The following is the goal status:As of last session on 10/07/2016. Patient was to return to MD for furtherrecommendation and has not returned for further PT.[place] in home exercise program. PARTIALLY METPatient will [...] not returned to therapy orscheduled additional follow-up appointments.Zion Sosaergies As of Date: 12/23/2016(No Known Allergies)Date Reviewed: [...] Status:Closed by TAMIKO SHIELDS on 12/23/16 Normal [facility] PROGRESSon 12-23-2016 PROGRESS HNO ID: [id number] thor: Tamiko (Pt) Staci: (none)Author Type: Physical TherapistType: Progress NotesFiled: 12/23/2016 6:52 PMNote Text:[facility] TH[facility]YPHYSICAL THERAPY DISCONTINUANCE OF CAREPlan of Care Period:Initial Evaluation Date: 09/09/2016Last Visit Date: 10/07/2016Therapy Program: The following is a summary of the interventions providedfor this episode of care; HEP, Individual PT, Modalities and Therapeuticexercise.Assessmen t:The following is the goal status:As of last session on 10/07/2016. Patient was to return to MD for furtherrecommendation and has not returned for further PT.[place] in home exercise program. PARTIALLY METPatient will [...] orscheduled additional follow-up appointments.Tamiko Shields, PT Normal [facility] HISTORY PHYSICALon 7 HISTORY PHYSICAL HNO ID: [id number] thor: [place] Blue ([place])Service: Pain ManagementAuthor Type: Physician AssistantType: HANDPFiled: 12/11/2016 [...] MEDICAL HISTORYDiagnosis Date- NEGATIVE MEDICAL HISTORYPAST SURGICAL OYIERVT62/2017: DANDC (MISSED AB 1ST TRIMESTER)No date: NONEPrior [...] December 11, 2016 : 2:13 PM PAGER: [facility] OPERATIVE NOon 12-11-2016 OPERATIVE NO HNO ID: [id number] thor: Agapito Bearervice: Pain ManagementAuthor Type: PhysicianType: Operative ReportFiled: 12/11/2016 3:24 PMNote Text:Patient Name Medical Record #Saima Yancey [id number] of : 1995Admit Date: December 11, 2016Sex / Age: female/21 year oldDischarge Date: December 11, 2016Date: December 11, 2016Attending Physician: GAVINO Alvarezervice: OPERATIVE REPORTLOG ID: [id number]/Procedure Date: 12/11/2016Incision/Procedure Start Time: 3:12 PMIncision Close/Procedure [...] 2 mL of a bupivacaine 0.5% and Jjjnrce75.33 mg was injected at each of the sites. Needle was then removed andbleeding was nil. Sterile dressing was applied. There were nocomplications. No specimens collected. She tolerated the procedure well.She was then taken to the Post-block Recovery Room in stable conditionComplications: None.Estimated Blood Loss: None.Drains: None.Implantable Device: None.Specimen: None.I, Agapito Torres MD, performed the entire procedure.ASSESSMENT AND PLAN:Samia Yancey is status post Right genicular nerve block. She did verywell without any apparent complications. She is to return to clinic in oneweek for follow up. Postoperative instructions were given, she voicedunderstanding. She was discharged to home in stable condition.Myke Alvarez 2016 [facility] Office Visit ([facility]) -SAIMA YANCEY ([id number]) 1995 [facility] Time Provider Department11/18/16 10:20 AM AGAPITO TORRES [facility] During your visit today, we recorded the following information about you: Pulse Blood pressure 77/minute 117/73Agapito Torres MD 11/18/2016 2:12 PM [facility] Pain Management Initial EvaluationJuly 2016 - 11:03 AMThis appointment was requested by Self, for my medical opinion regarding? theevaluation and management of the patient's Saima Yancey problems, and myfinal recommendations will be communicated to the requesting health careprovider by way of the shared medical record for internal providers or lettervia the [employer] for external providers.SUBJECTIVE:Saima Yancey a 21 year old presents to [facility] Pain ManagementDepartment, accompanied by self only, was [...] MEDICAL HISTORYDiagnosis Date- NEGATIVE MEDICAL HISTORYPAST SURGICAL YDASUBP62/2017: DANDamp;C (MISSED AB 1ST TRIMESTER)No date: NONESocial [...] supervised home exercise program (HEP): No 5. Aircraft Electronics Technical Officer: NoPassive conservative therapy lasting 6 weeks in [...] substance prescriptions werereported.- 11/18/2016 by ANNABELLE Cantu ANDjohn [facility]; ASSESSMENT: James Jones PA-C was present during [...] in Saima Fernandes's care.Agapito Torres M.D.November 18, 2016Referring Provider: JORDI JACKSON [[id number]]Allergies As of Date: 11/18/2016(No Known Allergies)Date Reviewed: [...] by AGAPITO TORRES MD on 11/18/16 Normal [facility] HOSPon 11-18-2016 HOSP Patient:Emilee Yancey by LMRN: [...] for the following basenames: K,HCTProgress Notes ([facility]):Agapito Torres MD 11/18/2016 2:12 PM SignedFafall [facility] Initial EvaluationJuly 2016 - 11:03 AMThis appointment was requested by Self, for my medical opinion regarding? theevaluation and management of the patient's Saima Yancey problems, and myfinal recommendations will be communicated to the requesting health careprovider by way of the shared medical record for internal providers or lettervia the [employer] for external providers.SUBJECTIVE:Saima Yancey a 21 year old presents to [facility] Pain ManagementDepartment, accompanied by self only, was [...] MEDICAL HISTORYDiagnosis Date- NEGATIVE MEDICAL HISTORYPAST SURGICAL PZQUUDL29/2017: DANDC (MISSED AB 1ST TRIMESTER)No date: NONESocial [...] supervised home exercise program (HEP): No 5. Aircraft Electronics Technical Officer: NoPassive conservative therapy lasting 6 weeks in [...] care.Agapito Torres M.D.November 18, 2016Previous VersionProgress Notes ([facility]):Nick Aime Rao 11/11/2016 9:57 AM SignedI called Saima Yancey on November 11, 2016 at 9:55 AM. Left message for patientto call the office. new patient letter sent out also.She was advised of the following:Dear Mr./Mrs/Ms. yancey, This is a follow up phone call regarding yourappointment with Dr. torres. You are scheduled to see Dr. torres in theD site on date 10/19/16 at arrival time [...] pain medications. (Allow the patient to respond.)Nick Aime Palumbo 2016Micconcha Aime Rao 11/14/2016 9:41 AM SignedAttempted to call patient for a second time left message, Letter sent out on11/11/16.Nick Aime Rao [facility] PROGRESSon 11-18-2016 PROGRESS HNO ID: [id number] thor: Agapito Bearervice: (none)Author Type: PhysicianType: Progress NotesFiled: 11/18/2016 2:12 PMNote Text:[facility] Initial EvaluationJuly 2016 - 11:03 AMThis appointment was requested by Self, for my medical opinion regarding?the evaluation and management of the patient's Saima Yancey problems,and my final recommendations will be communicated to the requesting healthcare provider by way of the shared medical record for internal providersor letter via the [employer] for external providers.SUBJECTIVE:Saima Yancey a 21 year old presents to [facility] PainManagement Department, accompanied by self only, was [...] MEDICAL HISTORYDiagnosis Date- NEGATIVE MEDICAL HISTORYPAST SURGICAL JWJBXRF69/2017: DANDC (MISSED AB 1ST TRIMESTER)No date: NONESocial [...] supervised home exercise program (HEP): No 5. Aircraft Electronics Technical Officer: NoPassive conservative therapy lasting 6 weeks in [...] Jeniffer Yancey's care.Agapito Torres M.D.November 18, 2016 [facility] Telephone ([facility]) -SAIMA YANCEY ([id number]) 1995 [facility] Time Provider Department11/11/16 AGAPITO TORRES [facility] During your visit today, we recorded the [...] 11/11/2016(No Known Allergies)Date Reviewed: 11/06/2016Reviewed by: Ronda Lucas for Visit: Appointment [[id number]]Prescriptions as of 11/11/2016 [...] FOR* Right knee pain [M25.561] INVALID FOR*Letter [facility] Pain [address], [place] [address]Hbwaze: [phone]: [phone] 2016Dear Saima Yancey,This is a reminder letter regarding your appointment with Melissa lAtman M.D. at [facility] Pain Management Department on 10/19/16 at 9:40am [...] you have previously been seen by a [facility] Pain Management provider you will need to [...] with your currentprescribing physician.Thank you for you cooperation,[facility] Pain Management TeamEncounter Number: [id number] Status:Closed by NICK KAUR MA on 11/11/16 Normal [facility] CNOVon 11-06-2016 CNOV Office Visit (ORMIDD) -SAIMA YANCEY ([id number]) 1995 FDate Time Provider Department11/06/16 1:20 PM [...] withsquatting here today.Imaging: Magnetic Resonance Imaging from [facility] is personallyreviewed by me and demonstrates no [...] see me on an as-needed basis only.Jordi Jackson [facility] Provider: JOSE HASSAN [[id number]]Allergies As of Date: 11/06/2016(No Known Allergies)Date Reviewed: 11/06/2016Reviewed by: Ronda Acevedo - [facility]Rel[facility] for Visit: Right Knee Pain [1209]Primary Visit Diagnosis:Patellofemoral stress syndrome of right knee [M22.2X1] Other Visit Diagnosis:Chronic pain of right knee [M25.561, G89.29]Order(s):CONSULT TO PAIN MGT ANESTHESIA [[id number]] Order #: [id number]: 1Prescriptions as of 11/06/2016 Sig: DICLOFENAC 20 [...] INVALID FOR*Follow-up and Disposition History RecordedEncounter Number: [id number] Status:Closed by JORDI JACKSON MD on 11/06/16 Normal [facility] PROGRESSon 11-06-2016 PROGRESS HNO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
[2023-07-22 04:07] LABS: Progesterone 8.2 ng/mL (.)
== END 2023-07-21 11:28 | disposition home or self-care (01) ==
LOC: LAB 11:27
PROVIDERS: PCP Nurse Practitioner Family; Visit Provider Physician Assistant
DX: N97.0 Female infertility associated with anovulation (principal)
CPT/HCPCS: 36415; 84144

== ENCOUNTER 2023-12-09 18:29 | Outpatient (REF) | payer SELFPAY ==
--- OUTSIDE RECORDS SUMMARY | 2023-12-09 18:39 | XMS_ITS | CCD ---
Author Organization [facility] Care Team Providers Care Rn Admission Name Role Phone JOSE HASSAN Unavailable Unavailable JOSE HASSAN A Unavailable Unavailable RENETTA, JORDI Arroyo Unavailable Unavailable JOSE HASSAN A Unavailable Unavailable MELISSA, AGAPITO Unavailable Unavailable FARCAMERON, POOJATLIZABETH D Unavailable Unavailable JAMES JONES (PHILLIP) Unavailable Unavail able MELISSA, AGAPITO Unavailable Unavailable MELISSA, AGAPITO Unavailable Unavailable AGAPITO TORRES Unavailable Unavailable Nick Ng Unavailable Amanda Mueller Unavailable Amanda Samuel Unavailable [phone] ROCHELLE Samuel Primary Care Provider MD Nick Ng Attending Provider [phone] ELYSE Mueller Attending Provider [phone] [address] ., DR STALEY Admitting Unavailable SHARON [...] Attending Provider ROCHELLE Samuel Primary Care Provider MD Darci Chen Attending Provider Darci Chen Unavailable ROCHELLE Samuel Attending Provider Darci Chen Attending Unavailable Rohrbacher, Amanda Primary Care Unavailable Darci Chen Admitting Unavailable Darci Chen Attending Unavailable [facility] Amanda Primary Care Unavailable Darci Chen Admitting Unavailable [facility] Admitting Unavailable [facility] Amanda Primary Care Unavailable [facility] Amanda Attending Unavailable Jerricarbacher, Amanda Primary Care Unavailable Darci Chen Admitting Unavailable Darci Chen Attending Unavailable BLANK, KALIE Attending Unavailable BLANK, KALIE Attending Unavailable BLANK, KALIE Attending Unavailable BLANK, KALIE Attending Unavailable BLANK, KALIE Attending Unavailable BLANK, KALIE Attending Unavailable Rohrbacher, Amanda Primary Care Unavailable Kashk, Anthony I Attending Unavailable Kashk, Anthony I Admitting Unavailable Allergies Allergy Classification Reported Allergen(s) Allergy Type Date of Onset Reaction(s) Facility (1 source) Unable to Assess Drug allergy (disorder) 4 [facility] Repository (1 source) No Known Medication Allergies; Translations: [No Known Medication Allergies] Propensity to adverse reactions to drug (disorder) [facility] Repository Medications Current Medications Medication Drug Class(es) [...] head/brain wo/w conon MR head/brain wo/w con [facility] Main [place] [id number] MRI Report Signed Patient: Saima Yancey MR#: [id number] : 1995 Acct:[id number] Age/Sex: 28 / F ADM Date: 05/27/23 Loc: Room: Type: [facility] Attending Dr: ELYSE Thurston APRN Copies to: Amanda Samuel APRN, CNP Ordering [...] Radha Mireles M.D.05/28/2023 8:59 AM Dictation Location: [place] [address] Transcribed By: [facility] 05/28/23 0859 Dictated By: Radha Mireles MD 05/28/23 0852 Signed By: 05/28/23 0859 [facility] Coding Summaryon 05-08-2023 Coding Summary HTMLBase 64 ObplgbgmMKa2bQa+PGhlYWQ+PE1FV FHmG95wpLJqbW2nU9ZVZOaDHrroRF BPHMxCWqEdwrVmAD9ivCUnHOMk IC8+AE4qZVKdOpwzcPSxi3U3rLB9D 86frm0pMYpieDD7CLIpPiAnffivw4 zfsQj4ZNyhPzxcTmFt BOIevQ35XVC8lQ13Ru37nCSxoQSws 9xrgWn3KiMmZEFjSBR7tQvaKRcfu9 RbDGQzF62orOMvy7Z4 HDUjlCooeGUeJtAbaHE4qU4kGAyxz bvjj0juzlzmGcg4sz23bHKvo8L1zR B4Y0XliiX8TIYzsPQy GvhtuRLBaL5kqkvvq4gpqwkeIpUgO XCpOZh4PDf6PCPpyEwoCiJyHQ21NA F2BEKzpfPnN9SbDBAd zPgzDbM2w0O9Jn2BF8FTFyqpP6IEJ UFSWTwvdGQ+VQ58qq93J0PkMahqKg y8DBPeIFR8hLG9xS7e SAMpMJlvj7P9tAY6O9EzgbErlu7rh 2yvMOZeKGmxA66poCGiy8D6PEZufP P8SDWfwCujWyXpwP19 Oyc+DDIgzAmni1ErNhgcr6nbv4kwc Zn1PyvvJTZfosDrfWfhGBO7u2QhNd 9fQZUewXV9kAV9vV4i AyPkTcU7FZnuB418SdBgpBUwOqzbC 38mT3ZzxEH+JLKtYzh1FSOwyQdvBC 2zC5RvSBYilmlcsJLi pGtoZZ5jVXZcaoksPGIlbD8uLCJmN 6e6RgFeAyG9KOgiC6SwISZwdtayVk 32gP7yPtAiMyO9PBjk V3EnnyK4VWQmaFHwXGkzCEF7G60rb 8O3YCPkAPOrTKE5rWS9wF0vjNxlpl ogbGVmdDsgdmVydGlj JBoyPRdrW917FUPblCojQgIvMAamI yBEYXRlOiAgMDEvMTEvMjAyNDwvdG Q+GQLkRIT4vUjdWCCr vUPdZSxmFo8ktYygbZciWE7eQAVmp imxFLQoyM4lUTXgyDAobHsmAO0pXU Zwqwdyg855GtGxEQX0 FEBzkLVuK0RikS7dSqNvGXTiLAQxE 6ZjhWBdSVnxT222AWflLuK0DWQidc RqC9GdYHNdgQqlXnY8 q2H4Ut5Jo6PkhafkT1XmeBUjDbRnE vujEIs6S9VuPclbtBZ+HH30UHTiRD 10QFa2TUD0eVuaUXdp VTEyJ9MrmW9iXoKtSDObZPErHvq+P HRhYmxlIHdpZHRoPScxMDAlJyBzdH xkUA5gWy0sTFNjSGGf sOxdtJMlEeJtx8gbTPDtOMzdBW0vw SfzV5CrhKZ3TFOuh1o4Bl44D47dX9 JvdXA+KWPgkUW3sET1 uT1vDiJoFrF0NGybG171RqUwnNAtZ ggip7sgs5icbJo8EoR2YRItgwIjoQ tkLZX4u6WmNi65N83m QPqaSBFwNGCbZRPcOUEyaIesdg5ad G9wIi8+CNOryBT8oQO9nB7kMtRbRq K2VLbuM294KoXtdKWg Klrag5jod9wbjSn6NzEfSZJmjjRkk EopCBT9m9KhUo70X0CaoPwgn6JlTt j8aa34wTIbc3N4yJR8 Z9QzGUFnaenbqUGjmAttJW2iABZwm jsnTBVydZ2aHQYxY9n9GaIxKoH4VH qwM7RetjC3GXBuoINo QPZgrBSTtJ8hqjzis9hrklymRpQaD KOkJBa5HCx2PMFneYssWeGoQFL3Bk W6TVJ7vMXowY6xeRjn qvatlB8gKdz+KIV5bRLzeGTHAV7nF jwvdGQ+RGHsCEP7aApaKAerIJFryF 5iEZCiR3s1AuFbFmM0 CZmaP9JzjjA0NCFfiMJnLTRsyOGJw G6funvms7rbpcluSzSoBBXtAGt2BR x9PADazPfxQpZjWTS3 TbL1KYI6mJJcpX4rfErvuxsqcG9wC yc+SwuopVvmEGJ5SGl3B9DzIxh7ZY AosAewYU6amTFnJZxe Rz1dtQdxvBnyDG0mDIGrcfrsp788W vJlk9mwMSZqtURtIApoFFX9I34bw5 F1NHVqANPgSKD2jES9 fX1pwTgfweblySIgvAgzlfGwhMtaS XoaRNgcE604PAHvcUcoZpPaWUo3R9 IvNsf0IFEwmSodQM5m cLGhYVmmCn5ziDkkeTbqWL3yMBCdv gexn219MzGlm3whQGOgjFSrPMrfKP X7Q00tv0H8IJNoYXMu HPA9bNN7fN0azYqysuidcGFqzIlep mNhgStjJSeuXKsqF260NPJreJtdYc VskSp1H4FsQys8LIIj bCvaMN0plENiJAcrJu7veLfzzReiH N9qHJCxmhmmx858WgHye3vmLHMbmA ZyZPjnVWJ5Y07pq2T3 BXTkGLWpUKM0oYN7lW0daKdmofqsx JSlcWyvntRioDeoAJxfPRpuO729PX RvcDsnPlBhdGllbnQg ACmlCNz5D9VsAissoXT+NX99QAJfS Q85qDMzfCYxb6wmzTr2IeQgPWIjOS S2mItiBJvqn0FfZPIl F10btFItu3I8TTTijTotdSWyMrYcl RA7kP5bFSmewephr1ugdcntGrqax5 thbn24mT32G46kXBry KMQjZRKcFMYdQTVzlFqbmk6qiP8bN i8+KQSocSG9kBD0aI4rUTQxCkW4YR itH472RdCvkCQyMvkg n9xvy5rioUp5VcA8MHNilwWitXgtZ MQ6x7YrNt03A96cUZiiKGKeDGOkWU KkZFAvtZbska2peT5c Ii8+PWNctII8bJQ6dW3sMkWjFiX3R WycC224JuYnrAKeJdgtB06yG9TwdP A+XQSkTbs1WJTlsQxb MF5bdNKgAIwwVc9qRJX2KaGvMaWtD XwkD2WnELRnafirfspcvEQ8JHNsEN DsbX82Fo8nqDcdORYk cRWZkE3svfowp1amxlgjWuUfEMOmL Rd8GXm5WHGpdKguFlWyOIY5XbW8XT W7nTIdlZ9vpFuyuaxg sV6jF7CcMRUgkracTr44tZ9gQaLgW xQ7BDnmDgr+AOZKCJPEEuslQ7cFYX LPTFlSCh50D2HiMfg0 INDxqYswIS0czCQjMNyjOd8hqJtee KemCP3kQYBqrgqcYXZnuL4vVHUwyY LxeKrjZA7iEWLafeyf v158MxZkVPQ6BVTdcEXpF4EqhJ7zG sUqXTDoKLWuN8ProBCxGMccH593NG giIoB7BGRsfqTdB3Js OGApeCpoCpY0b2S2Bl4dGy2pYz3eY My6AA04CF17nMEic0V2fQC4U5DyWE RrelhrmudtlBB3EWOq HKYbkX69bYGbZLcnCr2gn2B8b002X IHwSQZhcB47Hj1qfJudMRGywUIWwP 8zibuff2cpgfmrNdLc OJPcLQw0BPy3HJMyoAvnBmXjMTS0T zX5YVA5jIVxqR9xdVxilhkyeC5dYk c+KiUbFUHajcS7R8Cy Iys5IKNgcJwjJM1ryDVqVUyxGr3gd PiakOnqLF1jAPEzttbnLJJzbU0tDS XlrDQwsGorJA5zCCWf clmzo539YcFbHKJ2PJZbmXIjV5Vij R3qWaNyNROqJDEoW7SvbFKsRBwsT9 61FWpwNqL9DHLefgXh L7YbGGGgkUnmVbL9c6K5Wc1ATC3DQ UX3V4UwZnl6AUIknBzcVI8rfZVtGS bdQj6vkYuggHrhWV5w YKYqxipjHALhxF3gQIXfhHFiyLnnZ E9bOERhibfgb540CcWsTFJ4YWEmiU IhS9OkvN7xHdCeULBz LVYhN3EviWRcGRcjD398ECspSjN1B CXcuuBqD7UjPJJvuYapKzP2n8R7Ok 3UnSRoS3KbY4f0J9Kf PjwvdHI+UD76PNDxNA31dIProVXal 2craRu7EvSbBHLiVKA8yEgnTRbij0 IfZFHrY32ghCUzo6I0 EXBvyIrhmMQmZsJnvEK9xT2bMPjch onbk9gqhzwiJmikz3jioy27nT89J0 9sIHdpZHRoPSIzMCUi HNPckOnvbv5ogJ0hZe3+LINloFK9c IQ2uJ8lOuFhKgT0FEcsA534DtOnvC DvTeuql8mhk5jzvYy8 GvUkIDUnhmGviZpaBAD7b3HeId75E 29sIHdpZHRoPSIyMCUiIHZhbGlnbj 3anT7pWs6+QC7rb7mb qz75oO73mEH+SXBoUEC7fPyyXAvqD AVrlE2aRAlxUfI1OJJrWzTnyO66mM QrUYvjEa6umSgldMcu KT4eZCJrarggf768OhYjz9jaCWDna FDhZIjvOAF3E23cb7V1IJLiRBAyLB D5uQN5zD6rdUyfgmhg fEJumMwewoYevIueBAdbNXdoE845D TQwpIvjCiAxsPTgM7lwosGVOF8aCi wvdGQ+LVOjFVZ6fQzj YEgfIVCfrB0fIVMyM6a5KkTrYoS4Y GnlU9CgppV0PPRxoRDgJKMjeICLuU 4twpfck8aetijyAoAk VMAoKLw0OSm7OUWobSdyNzNqVGU0M gO1HSN5tIIecH2ehPejzlyekI6iQi c+RklOOjwvdGQ+PHRk XKH0mFzeXLpuCGGlzW2iLTSaS4m4E xSrQwJ9KSbrY6WgebK4TGUchKOzIB RneOLQrW3pqkvfa3mh fdtrVsLsWNWkGJj2NOv6NSWrrLodV sFnRDI0DbP3TTI6gHKmiA2lxGjjyt vurN7oKrp+TVJOOjwv dGQ+PWQySCL8nYquDJlhWJPsbH9xA UNkP3h1WwEyZfT6DYxxV1YwexP6HQ XrhYUmWQDfnYOLaL2s cfnhn1vvyeynBjXfRZLmQYe3QRj1Y GLwoUjkDbSwRFN4GdP7SLB5xSTitW 8inLgdpsxvlX9dSgm+ YEQ1ZYY6SQ85EH20X3KvThpdvIZpg +PHRhYmxlIHdpZHRoPScxMDAlJy TutCsbRB6gDm3pXLLm LWN (more content not included)... [facility] Electronic Messagingon 04-27 Electronic Messaging --- --- --- --- --- --- --- --- --- From: Directtest ([id number]), Directtest To: SAIMA YANCEY Sent: 04/27/23 05:06:20 AM EST Subject: Discharge Summary Ready to View A summary regarding your recent visit is available in the Documents section of your Health Record. [facility] ED Clinical Summaryon 2022 ED Clinical Summary [facility] - Emergency Department [address] [place] [address] ED Clinical Summary PERSON INFORMATION Name: SAIMA YANCEY Age: 28 Years Sex: FEMALE : 1995 MRN: Acct#: Visit Reason: Headache; HEADACHE, NECK PAIN Arrival: 04/26/2023 07:37:50 Discharge: 04/26/2023 09:32:00 LOS: 000 01:55 Check In: 04/26/2023 07:37:50 Checkout:04/26/2023 09:32:00 Address: [address] [place] [id number] PCP: Amanda Samuel CNP PROVIDER INFORMATION Provider [...] Headache Follow-Up: With: Address: When: Amanda Samuel [address] [place] [id number] Business (1) Within 3 to 5 days Comments: Call for follow up appointment DIAGNOSIS: Migraine Patient Understands: Yes - Patient/family/caregiver verbalizes understanding of instructions given Comment: [facility] ED Note-Nursingon 04-26-2023 ED Note-Nursing Patient arrives with c/o headache that started around 1700 yesterday. Pain rated 6/10. Patient last took ibuprofen 2 hrs prior to arrival. States nausea and eye pressure. States she started Addipex 3 weeks ago no other medical hx. Normal [facility] ED Patient Summaryon 023 ED Patient Summary [facility] - Emergency Department [address] [place] [address] PATIENT DISCHARGE INSTRUCTIONS Patient Information Name: SAIMA YANCEY Age: 28 Years Date of : 1995 Reason For Visit: Headache; HEADACHE, NECK PAIN Arrival Time: 04/26/2023 07:37:50 Primary Care Physician: Amanda Samuel CNP Attending Physician: Anthony Rios MD Comment: Visit Diagnosis: Diagnoses This Visit Headache ([id number]) Migraine (G43.909) The Pharmacy at [facility] is open Friday through Friday from 9A [...] alcohol and/or drug addiction problems; contact the [facility] 18/11 Crisis Hotline -Text 0OTJM kj [phone]. If you received any narcotics, sedation, or [...] legal documents With: Address: When: Amanda Samuel [address] [place] [id number] Business (1) Within 3 to 5 days Comments: Call for follow up appointment Medication Information: The exam and treatment you received today in the [facility] Emergency Department were for an urgent problem and are not intended as complete care. It is important for you to follow up with a doctor, nurse practitioner, or physician?s export sales assistant for ongoing care. If your symptoms [...] so we can reach you if necessary. [facility] Emergency Department has provided you with a complete list of medications post discharge. Please inform your primary products inspectors/provider of your visit and for further instruction [...] Eating or (more content not included)... Normal [facility] PROGESTERONEon 07-17-2022 Progesterone <0.1 Normal [facility] Comment on above: Result Comment: Foll icular phase 0.1 - 0.9 Luteal phase 1.8 - 23.9 Ovulation phase 0.1 - 12.0 First trimester 11.0 - 44.3 Second trimester 25.4 - 83.3 Third trimester 58.7 - 214.0 Postmenopausal 0.0 - 0.1 Performed By: #### P ROGES #### [facility] [address] [place] [address] [address] Aaron Flores PREG QUANT HCGon 07-15-2022 HCG QUANT <1 Normal [facility] Comment on above: Performed By: #### P REGQNT #### [facility] [address] [place] [address] [address] Aaron Flores HCG RANGE SEE BELOW [facility] Comment on above: Result Comment: 5-50 0.2-1 WEEK 50-500 1-2 WEEKS 100-5,000 2-3 WEEKS 500-10,000 3-4 WEEKS 1,000-50,000 4-5 WEEKS 10,000-100,000 5-6 WEEKS 15,000-200,000 6-8 WEEKS 10,000-100,000 2-3 MONTHS Performed By: #### P REGQNT #### [facility] [address] [place] [address] Dr. Aaron Flores PREG QUANT HCGon 06-05-2022 HCG QUANT <1 [facility] Comment on above: Performed By: #### P REGQNT #### [facility] [address] [place] [address] Dr. Aaron Flores HCG RANGE SEE BELOW Normal [facility] Comment on above: Result Comment: 5-50 0.2-1 WEEK 50-500 1-2 WEEKS 100-5,000 2-3 WEEKS 500-10,000 3-4 WEEKS 1,000-50,000 4-5 WEEKS 10,000-100,000 5-6 WEEKS 15,000-200,000 6-8 WEEKS 10,000-100,000 2-3 MONTHS Performed By: #### P REGQNT #### [facility] [address] [place] [address] Dr. Aaron Flores PROGESTERONEon 05-08-2022 Progesterone 9.0 ng/mL Normal [facility] Comment on above: Result Comment: Foll icular phase 0.1 - 0.9 Luteal phase 1.8 - 23.9 Ovulation phase 0.1 - 12.0 First trimester 11.0 - 44.3 Second trimester 25.4 - 83.3 Third trimester 58.7 - 214.0 Postmenopausal 0.0 - 0.1 Performed By: #### P ROGES #### [facility] [address] [place] [address] Dr. Aaron Flores PREG QUANT HCGon 05-06-2022 HCG QUANT 1 mIU/mL [facility] Comment on above: Performed By: #### P REGQNT #### [facility] [address] [place] [address] Dr. Aaron Flores HCG RANGE SEE BELOW Normal [facility] Comment on above: Result Comment: 5-50 0.2-1 WEEK 50-500 1-2 WEEKS 100-5,000 2-3 WEEKS 500-10,000 3-4 WEEKS 1,000-50,000 4-5 WEEKS 10,000-100,000 5-6 WEEKS 15,000-200,000 6-8 WEEKS 10,000-100,000 2-3 MONTHS Performed By: #### P REGQNT #### [facility] [address] [place] [address] Dr. Aaron Flores PROGESTERONEon 03-10-2022 Progesterone <0.1 Normal [facility] Comment on above: Result Comment: Foll icular phase 0.1 - 0.9 Luteal phase 1.8 - 23.9 Ovulation phase 0.1 - 12.0 First trimester 11.0 - 44.3 Second trimester 25.4 - 83.3 Third trimester 58.7 - 214.0 Postmenopausal 0.0 - 0.1 Performed By: #### P ROGES #### [facility] [address] [place] [address] Dr. Aaron Flores PROGESTERONEon 01-04-2022 Progesterone 0.2 ng/mL Normal [facility] Comment on above: Result Comment: Foll icular phase 0.1 - 0.9 Luteal phase 1.8 - 23.9 Ovulation phase 0.1 - 12.0 First trimester 11.0 - 44.3 Second trimester 25.4 - 83.3 Third trimester 58.7 - 214.0 Postmenopausal 0.0 - 0.1 Performed By: #### P ROGJUSTINO #### [facility] [address] [place] [address] Dr. Aaron Flroes CBC AUTO DIFFon 09-14-2021 BASO # 0.0 103/ul Normal 0.0-0.1 [facility] Comment on above: Performed By: #### C BC #### [facility] [address] [place] [address] Dr. Aaron Flores Basophils/100 WBC (Bld) 0.4 % Normal 0.2-2.0 [facility] Comment on above: Performed By: #### C BC #### [facility] [address] [place] [address] Dr. Aaron Flores EO # 0.1 103/ul Normal 0.0-0.7 [facility] Comment on above: Performed By: #### C BC #### [facility] [address] [place] [address] Dr. Aaron Flores Eosinophils/100 WBC (Bld) 1.1 % Normal 0.9-7.0 [facility] Comment on above: Performed By: #### C BC #### [facility] [address] [place] [address] Dr. Aaron Flores Erythrocyte distribution width (RBC) [Ratio] 11.9 % Normal 11.0-15.0 [facility] Comment on above: Performed By: #### C BC #### [facility] [address] [place] [address] Dr. Aaron Flores Hematocrit (Bld) [Volume fraction] 46.0 % Normal 36.0-48.0 [facility] Comment on above: Performed By: #### C BC #### [facility] [address] [place] [address] Dr. Aaron Flores Hemoglobin (Bld) [Mass/Vol] 15.1 g/dL Normal 12.0-16.0 [facility] Comment on above: Performed By: #### C BC #### [facility] [address] [place] [address] Dr. Aaron Flores IG # 0.00 10e3/ul Normal 0.00-0.03 [facility] Comment on above: Performed By: #### C BC #### [facility] [address] [place] [address] Dr. Aaron Flores IG % 0.0 % Normal 0.0-0.5 [facility] Comment on above: Performed By: #### C BC #### [facility] [address] [place] [address] Dr. Aaron Flores LYMPH # 1.7 103/ul Normal 1.2-3.8 [facility] Comment on above: Performed By: #### C BC #### [facility] [address] [place] [address] Dr. Aaron Flores Lymphocytes/100 WBC (Bld) 31.9 % Normal 20.5-60.0 [facility] Comment on above: Performed By: #### C BC #### [facility] [address] [place] [address] Dr. Aaron Flores MANUAL DIFF REQ NO Normal [facility] Comment on above: Performed By: #### C BC #### [facility] [address] [place] [address] Dr. Aaron Flores MCH (RBC) [Entitic mass] 29.7 pg Normal 26.7-34.0 [facility] Comment on above: Performed By: #### C BC #### [facility] [address] [place] [address] Dr. Aaron Flores MCHC (RBC) [Mass/Vol] 32.8 g/dL Normal 29.9-35.2 [facility] Comment on above: Performed By: #### C BC #### [facility] [address] [place] [address] Dr. Aaron Flores MCV (RBC) [Entitic vol] 90.6 fL Normal 81.0-99.0 [facility] Comment on above: Performed By: #### C BC #### [facility] [address] [place] [address] Dr. Aaron Flores MONO # 0.3 103/ul Normal 0.3-0.8 [facility] Comment on above: Performed By: #### C BC #### [facility] [address] [place] [address] Dr. Aarno Flores Monocytes/100 WBC (Bld) 5.4 % Normal 1.7-12.0 [facility] Comment on above: Performed By: #### C BC #### [facility] [address] [place] [address] Dr. Aaron Flores NEUT # 3.3 103/ul Normal 1.4-6.5 [facility] Comment on above: Performed By: #### C BC #### [facility] [address] [place] [address] Dr. Aaron Flores Neutrophils/100 WBC (Bld) 61.2 % Normal 43.0-75.0 [facility] Comment on above: Performed By: #### C BC #### [facility] [address] [place] [address] Dr. Aaron Flores Platelet mean volume (Bld) [Entitic vol] 11.9 fL Normal 9.5-13.5 [facility] Comment on above: Performed By: #### C BC #### [facility] [address] [place] [address] Dr. Aaron Flores PLT 182 103/ul Normal 150-450 [facility] Comment on above: Performed By: #### C BC #### [facility] [address] [address] [address] Aaron Flores RBC 5.08 106/ul Normal 4.20-5.40 [facility] Comment on above: Performed By: #### C BC #### [facility] [address] [address] [address] Aaron Flores WBC 5.4 103/ul Normal 4.0-11.0 [facility] Comment on above: Performed By: #### C BC #### [facility] [address] [address] [address] Aaron Flores PREG QUANT HCGon 09-14-2021 HCG QUANT 1 mIU/mL Normal [facility] Comment on above: Performed By: #### P REGQNT #### [facility] [address] [address] [address] Aaron Flores HCG RANGE SEE BELOW Normal [facility] Comment on above: Result Comment: 5-50 0-1 WEEK 40-300 1-2 WEEKS 100-1,000 2-3 WEEKS 500-6,000 3-4 WEEKS 5,000-200,000 1-2 MONTHS 10,000-100,000 2-3 MONTHS 3,000-50,000 2ND TRIMESTER 1,000-50,000 3RD TRIMESTER Performed By: #### P REGQNT #### [facility] [address] [place] [address] Dr. Aaron Flores [facility] SARS-CoV-2 (COVID-19) RNA ROBINA+probe Ql (Unsp spec) Not detected Normal NOT DETECTED [facility] Comment on above: Result Comment: This test is not yet approved or cleared by the [place] FDA. When there are no FDA-approved or cleared tests available, and other criteria are met, FDA can make tests available under an emergency access mechanism called an Emergency Use Authorization (EUA). The EUA for this test is supported by the [employer] of Health and Human Service's (HHS's) declaration [...] SARS-CoV-2. Performed By: #### P SPRING #### [facility] [address] [place] [address] Dr. Aaron Flores PAP ACOG PANEL 2: 21 to 29on 08-27-2021 . . [facility] Comment on above: Performed By: #### P SPRING #### [facility] [address] [place] [address] Dr. Aaron Flores Age Gdln ACOG Testing - [facility] Comment on above: Performed By: #### P SPRING #### [facility] [address] [address] [address] Aaron Flores DIAGNOSIS: Comment [facility] Comment on above: Result Comment: NEGA TIVE FOR INTRAEPITHELIAL LESION OR MALIGNANCY. Performed By: #### P SPRING #### [facility] [address] [place] [address] Dr. Aaron Flores Methodology: Comment [facility] Comment on above: Result Comment: This liquid based ThinPrep(R) pap test was screened with the use of an image guided system. Performed By: #### P SPRING #### [facility] [address] [place] [address] Dr. Aaron Flores Note: Comment [facility] Comment on above: Result Comment: The Pap smear is a screening test designed to aid in the detection of premalignant and malignant conditions of the uterine cervix. It is not a diagnostic procedure and should not be used as the sole means of detecting cervical cancer. Both false-positive and false-negative reports do occur. . Performed By: #### P SPRING #### [facility] [address] [place] [address] Dr. Aaron Flores Performed by: Comment Normal [facility] Comment on above: Result Comment: Larissa Lopez, Supervisory Freight Broker (ASCP) Performed By: #### P SPRING #### [facility] [address] [place], [place] [address] Dr. Aaron Flores Reflex Criteria: Comment Normal [facility] Comment on above: Result Comment: The HPV DNA reflex criteria were not met with this specimen result therefore, no HPV testing was performed. . Performed By: #### P SPRING #### [facility] [address] [place], [place] [address] Dr. Aaron Flores Specimen adequacy: Comment Normal [facility] Comment on above: Result Comment: Sati sfactory for evaluation. Endocervical and/or squamous metaplastic cells (endocervical component) are present. Performed By: #### P SPRING #### [facility] [address] [address] [address] Aaron Flores CNOVon 04-11-2017 CNOV Office Visit (EXPNOL) -SAIMA YANCEY ([id number]) [address] [facility] Time Provider Tjeppqkykw83/15/17 7:00 PM JAZMIN NIEVES) EXPNOL During your visit today, we recorded the following information about you: Temperature Pulse Blood pressure Weight 98.2 degrees 98/minute 122/67 104.3 kgSushmamirella PHILLIP Nieves 04/11/2017 7:35 PM SignedHPI Comments: [...] history is provided by the patient. No manager recruitment was used.Review of SystemsConstitutional: Negative for fever.HENT: [...] last 7-10 days on average and can re-occurHannah Anastacio, PA-CReferring Provider: SELF [[id number]]Allergies As of Date: 04/11/2017(No [...] of Service: EST PATIENT VISIT LEVEL 3 [[id number]]Disposition: Return if symptoms worsen or fail to improve.Follow-up and Disposition History RecordedEncounter Number: [id number] Status:Closed by JAZMIN NIEVES PA-C on 04/11/17 Normal [facility] PROGRESSon 04-11-2017 PROGRESS HNO ID: [id number] thor: Jazmin Rosa) Sevenervice: (none)Author Type: Physician AssistantType: Progress NotesFiled: 04/11/2017 7:35 PMNote Text:HPI Comments: [facility]- mouth issue HPI- Saima Yancey is a 22 year old female [facility] concerns of R lower gum pain [...] history is provided by the patient. No manager recruitment was used.Review of SystemsConstitutional: Negative for fever.HENT: Negative for congestion.Respiratory: Negative for cough.Blood pressure 122/67, pulse 98, temperature 36.8 ?C (98.2 ?F),temperature source Oral, weight 104.3 kg (230 lb), last menstrual ztoxbp1704/21/2016, not currently .Physical ExamConstitutional: She is oriented [...] or salty foods until ulcer resolvePHILLIP Hi [facility] CNOVon 03-29-2017 CNOV Office Visit (EXPNOL) -SAIMA YANCEY ([id number]) 1995 [facility] Time Provider Wzxaudqpzr33/2/17 8:35 AM YAAKOV RIDLEY (SUSANA) EXPNOL During [...] ICD10: N92.6- test negative- Follow up with RETURN AGENT/PCP if irregular menses continues- HCG QUAL UR B/Yevgeiny Weldon CNP, STEPHON 03/29/2017 9:09 AM SignedEXPRESS CARE PATIENT INFOCONJUNCTIVITIS [...] the person should be evaluated by an store assistant.Contact lens wearers ? People who wear contact lenses should be evaluated by [facility] provider before treatment begins; this is to [...] of eye drops or [facility]intment [facility]. This treatment helps to prevent the spread [...] improve within twoweeks, an examination with an store assistant may be recommended.CONJUNCTIVITIS PREVENTIONBacterial and viral conjunctivitis [...] eye [H10.31] Other Visit Diagnosis:Irregular menses [N92.6]Order(s):[facility] QUAL B/O [[id number]] Order #: [id number] tobramycin (TOBREX) 0.3 % ophthalmic solutionUse 1-2 [...] the person should be evaluated by an store assistant. Contact lens wearers ? People who wear [...] within two weeks, an examination with an store assistant may be recommended. CONJUNCTIVITIS PREVENTION Bacterial and [...] Status:Closed by YAAKOV RIDLEY CNP on 03/29/17 Normal [facility] PROGRESSon 03-29-2017 PROGRESS HNO ID: [id number] thor: Yaakov (Supervisory Clerk) STEPHON RidleyService: (none)Author Type: Nurse PractitionerType: Progress [...] ICD10: N92.6- test negative- Follow up with RETURN AGENT/PCP if irregular menses continues- HCG QUAL UR B/Maya Ridley CNP Normal [facility] CNOVon 01-14-2017 CNOV Office Visit ([facility]) -[facility][id number][facility] 1995 [facility] Department01/14/17 9:00 AM JAMES JONES) [facility] During your visit today, we recorded the following information about you: Pulse Blood pressure 94/minute 120/77Barbargeorges Jones PA-C 01/14/2017 10:01 AM Signed[facility] Follow Up VisitS2016 - 9:14 AMSUBJECTIVE:Saima Yancey a 21 year old [facility], accompanied by self only, [...] supervised home exercise program (HEP): No 5. Hydroblaster: NoPassive conservative therapy in the last six months (see below) 1. Medical devises: No 2. Acupuncture: No 3. Tens unit: No 4. Prescription pain medication: Tramadol 5. NSAIDS: NoDo you fell safe at home? YesRisk assessment at risk due to fall: NONEKalie [facility]2016 - Time: 9:20 AMThe subjective information: including chief complaint, past medical history andreview of systems, was explored in detail with the patient and edited as neededand is complete.ISIDRO Cantu-CSept2016Physical Examination:BP 120/77 Pulse 94 [...] was identified. - January 14, 2017 by NILA HesterC- Ran via [employer] web site - 2 scripts for Tramadol [...] agreement with the above and verbalized understanding.ISIDRO Cantu-CSeptember 2016Referring Provider: AGAPITO TORRES [[id number]]Allergies As of Date: 01/14/2017(No Known Allergies)Date Reviewed: 12/11/2016Reviewed by: Tamiko (Aden) [...] by JAMES JONES PA-C on 01/14/17 Normal [facility] PROGRESSon 01-14-2017 PROGRESS HNO ID: [id number] thor: James Nevarez (Phillip) Bennettervice: (none)Author Type: Physician AssistantType: Progress NotesFiled: 01/14/2017 10:01 AMNote Text:[facility] Follow Up VisitS2016 - 9:14 AMSUBJECTIVE:Saima Yancey a 21 year old presents to [facility] PainManagement Department, accompanied by self only, [...] supervised home exercise program (HEP): No 5. Hydroblaster: NoPassive conservative therapy in the last six months (see below) 1. Medical devises: No 2. Acupuncture: No 3. Tens unit: No 4. Prescription pain medication: Tramadol 5. NSAIDS: NoDo you fell safe at home? YesRisk assessment at risk due to fall: Agata Daniel [facility]2016 - Time: 9:20 AMThe subjective information: including chief complaint, past medicalhistory and review of systems, was explored in detail with the patient andedited as needed and is complete.ISIDRO [facility] Examination:BP 120/77 Pulse 94 SpO2 97% LMP [...] 2016 by James Jones PA-C- Ran via [employer] web site - 2 scripts for Tramadol [...] agreement with the above and verbalizedunderstanding.ISIDRO Toledo ra-CSeptember 2016 Normal [facility] CNDSNOTEon 12-23-2016 CNDSNOTE Discharge Note (enc) (PTFVGE) -SAIMA YANCEY ([id number]) 1995 F[address] Time Provider Department12/23/16 TAMIKO SHIELDS (PT) PTFVGE During your visit today, we recorded the following information about you:Tamiko Shields, PAUL 12/23/2016 6:52 PM SignedC[facility] THERAPYPHYSICAL THERAPY DISCONTINUANCE OF CAREPlan of Care Period:Initial Evaluation Date: 09/09/2016Last Visit Date: 10/07/2016Therapy Program: The following is a summary of the interventions provided forthis episode of care; HEP, Individual PT, Modalities and Therapeutic exercise.Assessment:The following is the goal status:As of last session on 10/07/2016. Patient was to return to MD for furtherrecommendation and has not returned for further PT.Parke in home exercise program. PARTIALLY METPatient will [...] 12/23/2016(No Known Allergies)Date Reviewed: 12/11/2016Reviewed by: Tamiko (Rn) [...] Status:Closed by TAMIKO SHIELDS on 12/23/16 Normal [facility] PROGRESSon 12-23-2016 PROGRESS HNO ID: [id number] thor: Tamiko (Pt) Staci: (none)Author Type: Physical TherapistType: Progress NotesFiled: 12/23/2016 6:52 PMNote Text:[facility] RE[facility]IL[facility] AND SPORTS THERAPYPHYSICAL THERAPY DISCONTINUANCE OF CAREPlan of Care Period:Initial Evaluation Date: 09/09/2016Last Visit Date: 10/07/2016Therapy Program: The following is a summary of the interventions providedfor this episode of care; HEP, Individual PT, Modalities and Therapeuticexercise.Assessmen t:The following is the goal status:As of last session on 10/07/2016. Patient was to return to MD for furtherrecommendation and has not returned for further PT.Parke in home exercise program. PARTIALLY METPatient will [...] orscheduled additional follow-up appointments.Tamiko Shields, PT [facility] HISTORY PHYSICALon 7 HISTORY PHYSICAL HNO ID: [id number] thor: Diego Muller) MirzaService: Pain ManagementAuthor Type: [...] MEDICAL HISTORYDiagnosis Date- NEGATIVE MEDICAL HISTORYPAST SURGICAL ZHTUWNO29/2017: DANDC (MISSED AB 1ST TRIMESTER)No date: NONEPrior [...] December 11, 2016 : 2:13 PM PAGER: [employer] OPERATIVE NOon 12-11-2016 OPERATIVE NO HNO ID: [id number] thor: Agapito Bearervice: Pain ManagementAuthor Type: PhysicianType: Operative ReportFiled: 12/11/2016 3:24 PMNote Text:Patient Name Medical Record #Saima Yancey [id number] of : 1995Admit Date: December 11, 2016Sex / Age: female/21 year oldDischarge Date: December 11, 2016Date: December 11, 2016Attending Physician: GAVINO Alvarezervice: OPERATIVE REPORTLOG ID: [id number]/Procedure Date: 12/11/2016Incision/Procedure Start Time: 3:12 PMIncision Close/Procedure [...] 2 mL of a bupivacaine 0.5% and Zwrepmq20.33 mg was injected at each of the [...] to home in stable condition.Myke Alvarez [address] [employer] CNOVon 11-18-2016 CNOV Office Visit ([facility]) -SAIMA YANCEY ([id number]) 1995 [facility] Time Provider Department11/18/16 10:20 AM AGAPITO TORRES [facility] During your visit today, we recorded the following information about you: Pulse Blood pressure 77/minute 117/73Agapito Torres MD 11/18/2016 2:12 PM Signed[facility] Initial EvaluationJuly 2016 - 11:03 AMThis appointment was requested by Self, for my medical opinion regarding? theevaluation and management of the patient's Saima Yancey problems, and myfinal recommendations will be communicated to the requesting health careprovider by way of the shared medical record for internal providers or lettervia the [employer] [facility]erral [facility] for external providers.SUBJECTIVE:Saima Yancey a 21 year old presents to [facility] Pain ManagementDepartment, accompanied by self only, [...] MEDICAL HISTORYDiagnosis Date- NEGATIVE MEDICAL HISTORYPAST SURGICAL QYCRAWM38/2017: DANDamp;C (MISSED AB 1ST TRIMESTER)No date: NONESocial [...] supervised home exercise program (HEP): No 5. Hydroblaster: NoPassive conservative therapy lasting 6 weeks in [...] No controlled substance prescriptions werereported.- 11/18/2016 by ISIDRO Cantu-TONY ANDamp; ASSESSMENT: James Jones PA-C was present during [...] Jackson for allowing me to participate in [facility] care.Agapito Torres M.D.November 18, 2016Referring Provider: JORDI JACKSON [[id number]]Allergies As of Date: 11/18/2016(No Known Allergies)Date Reviewed: [...] by AGAPITO TORRES MD on 11/18/16 Normal [facility] HOSP 11-18-2016 HOSP Patient:Emilee Yancey by LMRN: Height:5' [...] for the following basenames: K,HCTProgress Notes ([facility]):Agapito Torres MD 11/18/2016 2:12 PM Signed[facility] Initial EvaluationJuly 2016 - 11:03 AMThis appointment was requested by Self, for my medical opinion regarding? theevaluation and management of the patient's Saima Yancey problems, and myfinal recommendations will be communicated to the requesting health careprovider by way of the shared medical record for internal providers or lettervia the [employer] [facility] for external providers.SUBJECTIVE:Saima Yancey a 21 year old presents to [facility] Pain ManagementDepartment, accompanied by self only, [...] MEDICAL HISTORYDiagnosis Date- NEGATIVE MEDICAL HISTORYPAST SURGICAL UOVVKJS35/2017: DANDC (MISSED AB 1ST TRIMESTER)No date: NONESocial [...] supervised home exercise program (HEP): No 5. Hydroblaster: NoPassive conservative therapy lasting 6 weeks in [...] Torres M.D.November 18, 2016Previous VersionProgress Notes ([facility]):Nick Kaur Ma 11/11/2016 9:57 AM SignedI called Saima Yancey on November 11, 2016 at 9:55 AM. Left message for patientto call the office. new patient letter sent out also.She was advised of the following:Dear Mr./Mrs/MsKanu yancey, This is a follow up phone [...] left message, Letter sent out on11/11/16.Nick Kaur Maira [employer] PROGRESSon 11-18-2016 PROGRESS HNO ID: [id number] thor: Agapito Mayer: (none)Author Type: PhysicianType: Progress NotesFiled: 11/18/2016 2:12 PMNote Text:[facility] Initial EvaluationJuly 2016 - 11:03 AMThis appointment was requested by Self, for my medical opinion regarding?the evaluation and management of the patient's Saima Yancey problems,and my final recommendations will be communicated to the requesting healthcare provider by way of the shared medical record for internal providersor letter via the [facility] for external providers.SUBJECTIVE:Saima Yancey a 21 year old presents to [facility] PainManagement Department, accompanied by self only, [...] MEDICAL HISTORYDiagnosis Date- NEGATIVE MEDICAL HISTORYPAST SURGICAL AJGATPV18/2017: DANDC (MISSED AB 1ST TRIMESTER)No date: NONESocial [...] supervised home exercise program (HEP): No 5. Hydroblaster: NoPassive conservative therapy lasting 6 weeks in [...] Jeniffer Yancey's care.Agapito Torres M.D.November 18, 2016 [facility] 11-11-2016 CNPN Telephone ([facility]) -[facility] ([id number]) 1995 [facility] Department11/11/16 AGAPITO TORRES [facility] During your visit today, we recorded the following information about you:Nick Kaur Ma 11/11/2016 9:57 AM SignedI called Saima Yancey on November 11, 2016 at 9:55 AM. Left message for patientto call the office. new patient letter sent out also.She was advised of the following:Dear Mr./Mrs/ naye, This is a follow up phone call regarding yourappointment with Dr. torres. You are scheduled to see Dr. torres inthe PMD site on date 10/19/16 at arrival [...] 11/11/2016(No Known Allergies)Date Reviewed: 11/06/2016Reviewed by: Ronda Acevedo - Fully AssessedReason for Visit: Appointment [[id number]]Prescriptions as of 11/11/2016 [...] FOR* Right knee pain [M25.561] INVALID FOR*Letter [facility] Pain [address], [place] [address]Badlcc: [phone]: [phone] 2016Dear Ms. Saima Yancey,This is a reminder letter regarding your appointment with Melissa Altman M.D. at [facility] Pain Management Department on 10/19/16 at [...] you have previously been seen by a [facility] Management provider you will need to [...] with your currentprescribing physician.Thank you for you cooperation,[facility] Pain Management TeamEncounter Number: [id number] Status:Closed by NICK KAUR MA on 11/11/16 [facility] CNOVon 11-06-2016 CNOV Office Visit ([facility]) -NAYESAIMA Nevarez ([id number]) 1995 [facility] Time Provider Department11/06/16 1:20 PM JORDI JACKSON [...] withsquatting here today.Imaging: Magnetic Resonance Imaging from [facility] is personallyreviewed by me and demonstrates [...] me on an as-needed basis only.Jordi Jackson [facility] Provider: JOSE HASSAN [[id number]]Allergies As of Date: 11/06/2016(No Known Allergies)Date Reviewed: 11/06/2016Reviewed by: Ronda Acevedo - Fully AssessedReason for Visit: Right Knee Pain [1209]Primary Visit Diagnosis:Patellofemoral stress syndrome of right knee [M22.2X1] Other Visit Diagnosis:Chronic pain of right knee [M25.561, G89.29]Order(s):CONSULT TO PAIN MGT ANESTHESIA [[id number]] Order #: [id number]: 1Prescriptions as of 11/06/2016 Sig: DICLOFENAC 22 [...] INVALID FOR*Follow-up and Disposition History RecordedEncounter Number: [id number] Status:Closed by JORDI JACKSON MD on 11/06/16 Normal [facility] PROGRESSon 11-06-2016 PROGRESS HNO ID: [id number] thor: Jordi Roervice: (none)Author Type: PhysicianType: Progress [...] squatting here today.Imaging: Magnetic Resonance Imaging from [facility] is personallyreviewed by me and demonstrates no significant abnormal findings. Cam have evidence of possible edema in her [...] me damian as-needed basis only.Jordi Jackson MD [facility] CNOVon 11-01-2016 CNOV Office Visit ([facility]) -SAIMA YANCEY ([id number]) 1995 [facility] Time Provider Department11/01/16 11:15 AM JOSE HASSAN [facility] During your visit today, we recorded the [...] MEDICAL HISTORYDiagnosis Date- NEGATIVE MEDICAL HISTORYPAST SURGICAL SYCUJTY12/2017: Abram;Alexandria (MISSED AB 1ST TRIMESTER)No date: NONEFAMILY HISTORY [...] with Hoffa's fat padimpingement testing.Electronically Signed:Jose Hassan MDly 2016 11:54 Patricia Hassan MD 11/01/2016 12:01 [...] Status:Closed by JOSE HASSAN MD on 11/01/16 Normal [facility] PROGRESSon 11-01-2016 PROGRESS HNO ID: [id number] thor: Jose Womackervice: (none)Author Type: PhysicianType: Progress [...] MEDICAL HISTORYDiagnosis Date- NEGATIVE MEDICAL HISTORYPAST SURGICAL RLDGHOZ42/2017: DANDC (MISSED AB 1ST TRIMESTER)No date: NONEFAMILY [...] testing.Electronically Signed:Don Llanos 2016 11:54 AM [facility] MRI KNEE WO IVCON RTon 10-25 MRI KNEE WO IVCON RT * * *Final Report* * *DATE OF EXAM: Oct 25 2016 7:25AM [facility] 0213 - MRI KNEE WO IVCON RT [...] internal derangement.Remote injury of the fibular collateral ligament.Apparel Stock Checker: ARASH Transcribe Date/Time: Oct 25 2016 8:41ADictated by : Blane QUINTANILLA examination was interpreted and the report reviewed and electronically signed by: CAROL ANN BERRIOS MD on Oct 26 2016 12:12AM EST [facility] PROGRESSon 10-25-2016 PROGRESS HNO ID: [id number] thor: Shad Valdez Mri-TService: (none)Author Type: (none)Type: Progress NotesFiled: 10/25/2016 7:13 AMNote Text: Radiology Service Progress NotePATIENT NAME: Saima YanceyMRN: [id number] OF SERVICE: October 25, 2016TIME: 7:13 AMPATIENT IDENTITY VERIFICATION COMPLETED USING TWO (2) METHODS: Patientconfirmed name verbally and ID band matches..PATIENT GENDER DATA: Female. status: : NoBreastfeeding status: NO.PATIENT RELEVANT IMPLANT DATA REVIEWED: YesRADIOLOGY DEPARTMENT: MR; Exam(s) Completed: Lower MSK: Knee, rightPERIPHERAL IV DATA: Not applicableSIGNED BY: Shad Valdez Mri-TJune 2016 7:13 AM [facility] Vital Signs Date Time Vital Sign Value Performing Clinician Facility 05-20-2023 10:00-0500 Body height 171.45 cm Darci Chen Other [facility] Other 05-20-2023 10:00-0500 Body mass index (BMI) [Ratio] 40.12 kg/m2 Darci Chen Other [facility] Other 05-20-2023 10:00-0500 Body weight 117.94 kg Darci Chen Other [facility] Other 05-20-2023 10:00-0500 Diastolic blood pressure 90 mm[Hg] Darci Chen Other [facility] Other 05-20-2023 10:00-0500 SaO2% (BldA) [Mass fraction] 97 % Darci Chen Other [facility] Other 05-20-2023 10:00-0500 Systolic blood pressure 127 mm[Hg] Darci Chen Other [facility] Other 04-30-2023 14:30-0500 Body height 171.45 cm Amanda Samuel Other [facility] Other 04-30-2023 14:30-0500 Body mass index (BMI) [Ratio] 39.96 kg/m2 Amanda Samuel Other [facility] Other 04-30-2023 14:30-0500 Body weight 117.48 kg Amanda Samuel Other [facility] Other 04-30-2023 14:30-0500 Diastolic blood pressure 82 mm[Hg] Amanda Samuel Other [facility] Other 04-30-2023 14:30-0500 SaO2% (BldA) [Mass fraction] 99 % Amanda Samuel Other [facility] Other 04-30-2023 14:30-0500 Systolic blood pressure 120 mm[Hg] Amanda Samuel Other [facility] Other 12-25-2022 10:45-0400 Body height 171.45 cm Amanda Samuel Other [facility] Other 12-25-2022 10:45-0400 Body mass index (BMI) [Ratio] 42.74 kg/m2 Amanda Samuel Other [facility] Other 12-25-2022 10:45-0400 Body weight 125.65 kg Amanda Samuel Other [facility] Other 12-25-2022 10:45-0400 Diastolic blood pressure 84 mm[Hg] Amanda Samuel Other [facility] Other 12-25-2022 10:45-0400 Systolic blood pressure 120 mm[Hg] Amanda Samuel Other [facility] Other 10-11-2021 10:45-0400 Body height 171.45 cm Nick Olexa Other [facility] Other 10-11-2021 10:45-0400 Body mass index (BMI) [Ratio] 38.73 kg/m2 Nick Olexa Other [facility] Other 10-11-2021 10:45-0400 Body weight 113.85 kg Nick Olexa Other [facility] Other Encounters Encounter Date Encounter Type Care Provider Facility Start: 08-27-2023 End: 08-27-2023 ambulatory KALIE BALNK Not Available Start: 07-31-2023 End: 07-31-2023 ambulatory KALIE BLANK Not Available Start: 07-03-2023 End: 07-03-2023 ambulatory KALIE BLANK Not Available Start: 06-03-2023 End: 06-03-2023 ambulatory KALIE BLANK Not Available Start: 06-02-2023 End: 06-02-2023 ambulatory Amanda Samuel Facility:[facility] Start: 06-02-2023 End: 06-02-2023 ambulatory ROCHELLE Samuel Work Phone: [facility] Work Phone: Start: 06-02-2023 End: 06-02-2023 Patient encounter procedure ROCHELLE Samuel Work Phone: [facility] Work Phone: Start: 05-27-2023 End: 05-27-2023 ambulatory Amanda Samuel Facility:[facility] Start: 05-27-2023 End: 05-27-2023 ambulatory CUSTOMS ENTRY WRITER Amanda Thear Work Phone: [facility] Work Phone: Start: 05-27-2023 End: 05-27-2023 Patient encounter procedure CUSTOMS ENTRY WRITER Amanda Lorettaacher Work Phone: [facility] [place] Work Phone: Start: 05-20-2023 Office outpatient vi sit 40 minutes Darci Chen [facility] Start: 05-20-2023 End: 05-20-2023 ambulatory CUSTOMS ENTRY WRITERBill Samuel Work Phone: [facility] Other Start: 05-20-2023 End: 05-20-2023 Patient encounter procedure CUSTOMS ENTRY WRITER Amanda Jimmie Work Phone: [facility] Work Phone: Start: 05-05-2023 End: 05-05-2023 ambulatory Darci Chen Facility:[facility] Start: 05-05-2023 End: 05-05-2023 ambulatory CUSTOMS ENTRY WRITERBill Samuel Work Phone: [facility] Work Phone: Start: 05-05-2023 End: 05-05-2023 Patient encounter procedure CUSTOMS ENTRY WRITERBill SueAmandajenna Samuel Work Phone: [facility] Work Phone: Start: 05-05-2023 End: 05-05-2023 ambulatory KALIE PARSON Not Available Start: 04-30-2023 End: 04-30-2023 ambulatory Amanda Samuel Other [facility] Other Start: 04-30-2023 Office outpatient vi sit 15 minutes Amanda Samuel [facility] Start: 04-30-2023 End: 04-30-2023 Patient encounter procedure CUSTOMS ENTRY WRITER Amanda Samuel Work Phone: [facility] Work Phone: Start: 04-26-2023 End: 04-26-2023 Emergency department patient visit Amanda Samuel Facility:[facility] Start: 04-01-2023 End: 04-01-2023 ambulatory KALIE PARSON Not Available Start: 03-17-2023 End: 03-17-2023 Patient encounter procedure CUSTOMS ENTRY WRITER Amanda Samuel Work Phone: [facility] Work Phone: Start: 12-25-2022 End: 12-25-2022 ambulatory Amanda Samuel Other [facility] Other Start: 12-25-2022 Office outpatient vi sit 15 minutes Amanda Samuel [facility] Start: 07-15-2022 End: 07-16-[address] JASMEET HUBBARD . Facility:[facility] Start: 06-12-2022 End: 06-12-2022 ambulatory Amanda Samuel Other [facility] Other Start: 06-12-2022 Encounter by jose Samuel [facility] [place] Start: 06-05-2022 End: 06-06-[address] JASMEET HUBBARD . Facility:[facility] Start: 05-06-2022 End: 05-07-[address] JASMEET HUBBARD . Facility:[facility] Start: 03-08-2022 End: 03-09-[address] JASMEET HUBBARD . Facility:[facility] Start: 01-25-2022 End: 01-25-2022 ambulatory Nick Ng Other [facility] Other Start: 01-25-2022 Telephone encounter Nick Olexa [facility] Start: 01-24-2022 End: 01-24-2022 ambulatory CUSTOMS ENTRY WRITERBill Samuel Work Phone: [facility] Work Phone: Start: 01-24-2022 End: 01-24-2022 Patient encounter procedure CUSTOMS ENTRY WRITERBill Samuel Work Phone: [facility] [place] Start: 01-16-2022 End: 01-16-2022 ambulatory Amanda Mueller Other [employer] Other Start: 01-16-2022 Office outpatient vi sit 15 minutes Amanda Mueller [facility] Start: 01-03-2022 End: 01-04-[address] JASMEET HUBBARD . Facility: Start: 12-06-2021 End: 12-06-2021 ambulatory Nick Olexa Other [employer] Other Start: 12-06-2021 Postop follow up vis it related to original px Nick Olexa [facility] Start: 12-06-2021 End: 12-06-2021 Patient encounter procedure CUSTOMS ENTRY WRITERiBll Samuel Work Phone: [facility] Start: 11-22-2021 End: 11-22-2021 ambulatory Nick Olexa Other [employer] Other Start: 11-22-2021 Telephone encounter Nick Olexa [facility] Start: 11-13-2021 End: 11-13-2021 ambulatory Nick Olexa Other [employer] Other Start: 11-13-2021 Telephone encounter Nick Olexa [facility] Start: 11-08-2021 End: 11-08-2021 Patient encounter procedure CUSTOMS ENTRY WRITER Amanda Samuel Work Phone: [facility] Start: 10-11-2021 (Post-Op) Post-Op Nick Ng [facility] Start: 10-11-2021 End: 10-11-2021 ambulatory Nick Ng Other [employer] Other Start: 10-01-2021 End: 10-01-2021 ambulatory Amanda Samuel Other [employer] Other Start: 10-01-2021 Telephone encounter Amanda Garber her [facility] Start: 09-28-2021 End: 09-28-2021 ambulatory Amanda Samuel Other [employer] Other Start: 09-28-2021 Telephone encounter Amanda Garber her [facility] [place] Start: 09-27-2021 End: 09-27-2021 ambulatory Nick Ng Other [employer] Other Start: 09-27-2021 Office outpatient ne w 45 minutes Nick Ng [facility] Start: 09-27-2021 Telephone encounter Amanda Mueller [facility] Start: 09-14-2021 End: 09-14-[address] JASMEET HUBBARD . Facility:[facility] Start: 09-14-2021 Encounter for preprocedural laboratory examination DR JASMEET HUBBARD . [facility] Start: 09-11-2021 End: 09-12-[address] JASMEET HUBBARD . Facility:[facility] Start: 09-11-2021 End: 09-12-2021 Encounter for preprocedural laboratory examination DR JASMEET HUBBARD . Facility:[facility] Start: 09-05-2021 Encounter for other preprocedural examination DR JASMEET HUBBARD . [facility] Start: 09-03-2021 End: 09-04-[address] JASMEET HUBBARD . Facility: Start: 09-03-2021 End: 09-04-2021 Encounter for other preprocedural examination DR JASMEET HUBBARD . Facility: Start: 08-20-2021 End: 08-20-[address] JASMEET HUBBARD . Facility: Start: 04-11-2017 End: 04-14-2017 Ambulatory JOSE [facility] Start: 03-29-2017 End: 03-31-2017 Ambulatory JOSE [facility] Start: 01-14-2017 End: 01-14-2017 [facility] Start: 12-11-2016 [facility] Start: 11-18-2016 End: 12-16-2016 Ambulatory AGAPITO MELISSA [facility] Start: 11-06-2016 End: 11-06-2016 Ambulatory JORDI JACKSON [facility] Start: 11-01-2016 End: 11-01-2016 [facility] Start: 10-25-2016 End: 10-25-2016 Ambulatory JOSE Ram [facility] Procedures Date Procedure Procedure Detail Performing Clinician Start: 05-27-2023 MRI of head CUSTOMS ENTRY WRITER Rach Samuel Work Phone: Start: 01-24-2022 MRI of right knee CUSTOMS ENTRY WRITER Amanda Samuel Work Phone: Start: 12-06-2021 X-ray of right knee APR N Amanda Samuel Work Phone: Start: 11-08-2021 X-ray of right knee APR N Amanda Samuel Work Phone: Plan of Treatment Date Care Activity Detail Author Start: 05-27-2023 MR Unspecified body region [facility] Start: 05-27-2023 MRI of head MR head/brain wo/w con [facility] Immunizations Immunization Date Immunization Notes Care Provider Fa cility 01-28-2020 influenza, injectabl e, quadrivalent, contains preservative Amanda Samuel Other [employer] Other 08-16-2016 diphtheria, tetanus toxoids and acellular pertussis vaccine Amanda Jimmie Other [facility] Other 02-27-2010 influenza virus vaccine, split virus (incl. purified surface antigen) Amanda Samuel Other [facility] Other 11-09-2008 human papilloma viru s vaccine, quadrivalent Amanda Thear Other [facility] Other 07-05-2008 human papilloma viru s vaccine, quadrivalent Amanda Lorettaacher Other [facility] Other 05-10-2008 human papilloma viru s vaccine, quadrivalent Amanda Thear Other [facility] Other 04-12-2008 diphtheria, tetanus toxoids and acellular pertussis vaccine Amanda Jimmie Other [facility] Other 04-12-2008 meningococcal polysaccharide (groups A, C, Y and W-135) diphtheria toxoid conjugate vaccine (MCV4P) Amanda Samuel Other [facility] Other 04-12-2008 varicella virus vaccine Carmen Samuel Other [facility] Other 12-07-2001 diphtheria, tetanus toxoids and acellular pertussis vaccine Amanda Jimmie Other [facility] Other 12-07-2001 poliovirus vaccine, inactivated Amanda Samuel Other [facility] Other 04-16-2000 measles, mumps and rubella virus vaccine Amanda Jimmie Other [facility] Other 07-14-1998 diphtheria, tetanus toxoids and acellular pertussis vaccine Amanda Jimmie Other [facility] Other 07-14-1998 haemophilus influenz ae type b vaccine, PRP-OMP conjugate Amanda Jimmie Other [facility] Other 04-13-1998 measles, mumps and rubella virus vaccine Amanda Jimmie Other [facility] Other 04-13-1998 varicella virus vaccine Carmen Samuel Other [facility]able Other 1997 diphtheria, tetanus toxoids and acellular pertussis vaccine Amanda Jimmie Other [facility] Other 1997 haemophilus influenz ae type b vaccine, PRP-OMP conjugate Amanda Jimmie Other Performable Other 1997 hepatitis B vaccine, pediatric or pediatric/adolescent dosage Amanda Samuel Other [facility] Other 1997 poliovirus vaccine, inactivated Amanda Samuel Other [facility]able Other 1997 diphtheria, tetanus toxoids and acellular pertussis vaccine Amanda Jimmie Other [facility] Other 1997 haemophilus influenz ae type b vaccine, PRP-OMP conjugate Amanda Becerrilrbacher Other Performable Other 1997 poliovirus vaccine, inactivated Amanda Rohrbacher Other Performable Other 1997 diphtheria, tetanus toxoids and acellular pertussis vaccine Amanda Becerrilrbacher Other [facility] Other 1997 haemophilus influenz ae type b vaccine, PRP-OMP conjugate Amanda Burgosacher Other [facility] Other 1997 hepatitis B vaccine, pediatric or pediatric/adolescent dosage Amanda Rohrbacher Other [facility] Other 1997 poliovirus vaccine, inactivated Amanda Rohrbacher Other [facility] Other 1997 hepatitis B vaccine, pediatric or pediatric/adolescent dosage Amanda Rohrbacher Other [facility] Other Payers Date Payer Category Payer Private Health Insurance [id number] 2023 Self-pay [id number] 2022 Medicaid [id number] 1997 Unknown [id number] 2.16.84 0.1.418812.3.579.2.593 1997 Unknown [id number] 2.16.84 0.1.384884.3.579.2.593 1997 Unknown [id number] 2.16.84 0.1.383203.3.579.2.593 1997 Unknown [id number] 2.16.84 0.1.889422.3.579.2.593 1997 Unknown [id number] 2.16.84 0.1.241471.3.579.2.593 1997 Unknown [id number] 2.16.84 0.1.821130.3.579.2.593 1997 Unknown [id number] 2.16.84 0.1.308379.3.579.2.593 1997 Unknown [id number] 2.16.84 0.1.752158.3.579.2.593 1997 Unknown [id number] 2.16.84 0.1.438121.3.579.2.593 1997 Unknown [id number] 2.16.84 0.1.701373.3.579.2.1259 1997 Unknown [id number] 2.16.84 0.1.410621.3.579.2.1259 1997 Unknown [id number] 2.16.84 0.1.916807.3.579.2.1259 1997 Unknown [id number] 2.16.84 0.1.370406.3.579.2.1259 1997 Unknown [id number] 2.16.84 0.1.200592.3.579.2.1259 1997 Unknown [id number] 2.16.840 .1.372811.3.579.2.1259 1997 Unknown [id number] 2.16.8 40.1.000618.3.579.2.718 1959 Blue Cross Blue Shield [id number] 2.16.840.1.725248.19 1959 Unknown [id number] 2.1 6.840.1.271831.19 Unknown [id number] 2.16.8 40.1.166893.3.579.2.531 Unknown [id number] 2.16.8 40.1.055162.3.579.2.531 Unknown [id number] 2.16.8 40.1.970296.3.579.2.531 Unknown [id number] 2.16.8 40.1.470362.3.579.2.531 Social History Date Type Detail Facility Unknown if ever smoked [employer] Other Sex Assigned At Sex Assigned At Bir th [facility]formable Other Start: 1997 Sex Assigned At Female F [facility] Clinical Notes 08-26-2021 to 05-20-2023 Note [...] changes in symptoms and/or problems with treatment [employer] Other 01-03-2024 Evaluation note* Encounter Date Diagnosis [...] Family history of migraine (ICD-10 - Z82.0) [employer] Other 12-30-2023 NoteEducation Materials Neurology Migraine Headache [...] these instructions at home: Medicines ? Take mijs-vua-gzkklcf and prescription medicines only as told by your health care provider. ? Ask your health care provider if the medicine prescribed to you: ? Requires you to avoid driving or using heavy machinery. ? Can cause constipation. You may need to take these actions to prevent or treat constipation: ? Drink enough fluid to keep your urine pale yellow. ? Take hsor-wlr-wvlwxsy or prescription medicines. ? Eat foods that [...] ? You develop symptoms (more content not included)...[facility] [id number] Evaluation note* Encounter Date Diagnosis Assessment Notes Treatment Notes Treatment Clinical Notes Nov, Bronchitis (ICD-10 - J40) Discussed diagnosis with patient. Patient to start Zithromax. Patient to take Zithromax daily with food as prescribed. Finish entire course of antibiotic. Tessalon Pearles ordered to take as needed for cough. Increase fluids and rest. Iiez-ltr-wfwymbr antipyretics as needed. Warning signs and symptoms reviewed with patient today. Patient to go immediately to the ER should she experience any of these. Patient to notify office should her symptoms persist and not improve. Patient verbalizes understanding and agrees to treatment plan. [facility] Other 09-21-2022 Evaluation note* Encounter Date Diagnosis Assessment Notes [...] of pain and plan potential surgical treatment. [facility] Other 08-11-2022 Evaluation note* Encounter Date Diagnosis [...] one with metal stays. Call with questions/concerns. [facility] Other 06-16-2022 Evaluation note* Encounter Date Diagnosis [...] to continue off work at this time. [facility] Other 06-02-2022 Evaluation note* Encounter Date Diagnosis [...] discussed that this injury can lead to assisted pain and development of arthritic change. Discussed potential to consult with Dr Victoria depending on CT results. We were able to evaluate the CT scan later this afternoon. There is a anterior tibial spine fracture with minimal displacement. I will be recommending nonoperative treatment and nonweightbearing at this time. We will allow gentle range of motion in a brace. Aspirin for DVT prophylaxis [facility] Other 05-20-2022 NoteThe [place], [place] NAME: SAIMA YANCEY DATE OF : MEDICAL REC#: [id number] MUSICAL INSTRUMENT MAKER: [id number] [facility], TRANS[facility]MIT DATE: 09/14/2021 10:36:00 MATERIALS TECHNICIAN DATE: 09/16/2021 02:00 DICTATING PHYSICIAN: JASMEET HUBBARD DICTATION DATE: 09/14/2021 13:00 OPERATIVE NOTE OPERATION DATE: 09/14/2021 PROCEDURE: Diagnostic laparoscopy. PREOPERATIVE DIAGNOSIS: Pelvic pain. POSTOPERATIVE DIAGNOSIS: Pelvic pain. ANESTHESIA: General. SURGEON: Jasmeet Hubbard M.D. APPLICATIONS SUPPORT LEAD: JANELL De Souza URINE OUTPUT: Yellow and [...] Approved by: DR JASMEET HUBBARD . 09/17/2021 07:39:00[facility]05-01-2022 History general Narrative - Reported* Type Description Date Medical History Headaches Medical History Concussion, without loss of consciousness, initial encounter Surgical History tonsillectomy Surgical History D&C Surgical History laparoscopy 08/2021 Surgical History C section 12/2018 Hospitalization History Dehydration 2000 Hospitalization History Miscarriage D&C [facility] Other Evaluation noteNo InformationNort [employer] Other Evaluation noteNo assessment information available [facility] Work Phone: History general Narrative - Reported* Type Description Date Medical History Headaches Medical History Concussion, without loss of consciousness, initial encounter Medical History PCOS Medical History Endometrosis Surgical History tonsillectomy Surgical History D&C Surgical History laparoscopy 08/2021 Surgical History C section 12/2018 Hospitalization History Dehydration 2000 Hospitalization History Miscarriage D&C [facility] Other Summary Purpose Family History No Family [...] section and content) DATE CREATED AUTHOR 10/21/2017 [facility] DATE CREATED AUTHOR AUTHOR'S ORGANIZ ATION 10/22/2017 [facility] DATE CREATED AUTHOR AUTHOR'S ORGANIZ ATION 08/06/2022 [facility] DATE CREATED AUTHOR AUTHOR'S ORGANIZ ATION 06/05/2023 [facility] DATE CREATED AUTHOR AUTHOR'S ORGANIZ ATION [facility]20[facility] DATE CREATED AUTHOR AUTHOR'S ORGANIZ ATION 11/25/2023 [facility] REASON FOR VISIT (unrecogniz ed section and content) Right Knee InjuryNo Informat ionNo InformationFollow uper folllow upRecheck Right KneeNo InformationROM3-4 WEEK RECHECKRecheck Right KneeAPPTaubree cook 01/14/2019CoShai rebolledoMagruder ER Follow upNo Information Care Teams (unrecognized sec tion and content) Team Status: Inactive Member Role Status Dates Amanda Samuel APRN DOOR REPAIRER BUS-C Primary Care Provider Active ELYSE Jose Attending Provider Active Team Status: Inactive Member Role Status Dates Amanda Samuel APRN DOOR REPAIRER BUS-C Primary Care Provider Active Nick Ng MD Attending Provider Active Team Status: Active Member Role Status Dates Amanda Samuel APRN DOOR REPAIRER [employer]-C Primary Care Provider Active Team Status: Inactive Member Role Status Dates Darci Chen MD Attending Provider Active Amanda Samuel APRN DOOR REPAIRER [employer]-C Primary Care Provider Active Team Status: Inactive Member Role Status Dates Amanda Samuel APRN DOOR REPAIRER [employer]-C Attending Provider Act gilberto Start: March 17, 2023 End: March 17, 2023 Team Status: Inactive Member Role Status Dates Amanda Samuel APRN DOOR REPAIRER BUS-C Attending Provider Act gilberto Start: April 30, 2023 End: April 30, 2023 Team Status: Inactive Member Role Status Dates Darci Chen MD Attending Provider Active S tart: May 05, 2023 End: May 05, 2023 Amanda Samuel APRN DOOR REPAIRER BUS-C Primary Care Provider Active Start: May 05, 2023 End: May 05, 2023 Team Status: Inactive Member Role Status Dates Darci Chen MD Attending Provider Active S tart: May 20, 2023 End: May 20, 2023 Amanda Samuel APRN DOOR REPAIRER [employer]-C Primary Care Provider Active Start: April End: May 20, 2023 Team Status: Inactive Member Role Status Dates Amanda Samuel APRN DOOR REPAIRER [employer]-C Primary Care Provider, Attending Provider Active Start: May 27, 2023 End: May 27, 2023 Team Status: Inactive Member Role Status Dates Amanda Samuel APRN DOOR REPAIRER BUS-C Primary Care Provider Active Start: May End: [...] BE BASED ON THE PRIMARY CLINICAL RECORDS. [facility]. provides no warranty or guarantee of the accuracy or completeness of information in this document.
== END 2023-12-09 18:30 | disposition home or self-care (01) ==
LOC: LAB 18:29
PROVIDERS: PCP Nurse Practitioner Family; Visit Provider Obstetrics & Gynecology
DX: Z01.419 Encounter for gynecological examination (general) (routine) without abnormal findings (principal)
CPT/HCPCS: 88175

== ENCOUNTER 2024-03-17 19:02 | Outpatient (OUT) | payer OTHER, SELFPAY ==
--- OUTSIDE RECORDS SUMMARY | 2024-03-17 19:05 | XMS_ITS | CCD ---
Author Organization [facility] Care Team Providers Care Lbd Teacher Name Role Phone JOSE HASSAN Unavailable Unavailable JOSE HASSAN Unavailable Unavailable JORDI JACKSON D Unavailable Unavailable JOSE HASSAN Unavailable Unavailable MELISSA, AGAPITO Unavailable Unavailable FARCAMERON, LUTLIZABETH D Unavailable Unavailable JAMES JONES (NILAC) Unavailable Unavail able MELISSA, AGAPITO Unavailable Unavailable MELISSA, AGAPITO Unavailable Unavailable MELISSA, AGAPITO Unavailable Unavailable Nick Ng Unavailable Amanda Mueller Unavailable Amanda Samuel Unavailable [phone] ROCHELLE Samuel Primary Care Provider MD Nick Ng Attending Provider ELYSE Mueller Attending Provider SAHRON ., DR STALEY Admitting Unavailable SHARON ., [...] ble SHARON ., DR STALEY Admitting Unavailable HSARON ., DR STALEY Attending Unavailable REQUEST, DR [...] Care Provider MD Darci Chen Attending Provider [phone] Darci Chen Unavailable ROCHELLE Samuel Attending Provider Rohrbacher, Amanda Admitting Unavailable Rohrbacher, Amanda Attending Unavailable Rohrbacher, Amanda Primary Care Unavailable Darci Chen Admitting Unavailable Darci Chen Attending Unavailable Rohrbacher, Amanda Primary Care Unavailable Darci Chen Admitting Unavailable Darci Chen Attending Unavailable Rohrbacher, Amanda Primary Care Unavailable Darci Chen Admitting Unavailable Darci Chen Attending Unavailable Rohrbacher, Amanda Primary Care Unavailable Rohrbacher ANODIC OPERATORAmanda A Primary Care Provider Unavailable CALVIN, KALIE Attending Unavailable CALVIN, KALIE Attending Unavailable CALVIN, KALIE Attending Unavailable CALVIN, KALIE Attending Unavailable CALVIN, KALIE Attending Unavailable CALVIN, KALIE Attending Unavailable SHARON, JASMEET Attending Unavailable CALVIN, KALIE Attending Unavailable CALVIN, KALIE Attending Unavailable Plymouth PA, Kalie Attending Unavailable Calvin PA, Kalie Admitting Unavailable Rohrbacher, Amanda Primary Care Unavailable Emiliano Weston Attending Unavailable Emiliano Weston Admitting Unavailable Amanda Samuel Primary Care Unavailable Anthony Rios I Attending Unavailable Anthony Rios I Admitting Unavailable Amanda Samuel Primary Care Unavailable Amanda Samuel NP Primary Care Provider Allergies Allergy Classification Reported Allergen(s) Allergy Type Date of Onset Reaction(s) Facility (1 source) Unable to Assess Drug allergy (disorder) [facility] Repository (1 source) No Known Medication Allergies; Translations: [No Known Medication Allergies] Propensity to adverse reactions to drug (disorder) [facility] Repository Medications Current Medications Medication Drug Class(es) [...] capsule (1 source) Non-narcotic Antitussive Start: 12-26-19 23 take 1 capsule by mouth every eight hours Benzonatate 200 MG 1 capsule Orally Three times a day for 10 days Nov, Active citalopram 20 mg oral tablet (2 sources) Serotonin Reuptake Inhibitor Start: 03-03-20 24 End: 08-31-19 25 take 1 tablet by mouth once daily citalopram (CeleXA) 20 MG tablet Indications: Anxiety, generalized (CMS/HCC) Take 1 tablet (20 mg) by mouth Daily 30 tablet 5 03/03/2024 08/30/2024 Active ibuprofen 400 mg oral tablet (12 sources) Nonsteroidal Anti-inflammatory Drug take 1 tablet by mouth three times daily at mealtime as needed Ibuprofen 400 MG 1 tablet with food or milk as needed Orally Three times a day Active medroxyPROGESTERone acetate 10 mg oral tablet (1 source) Progestin medroxyPROGESTER one Acetate 10 MG Oral for 10 Days Active 24 hr metFORMIN hydrochloride 500 mg extended release oral tablet (8 sources) Biguanide Start: 12-09-19 24 take 1 tablet by mouth every twenty-four hours at mealtime metFORMIN XR (Glucophage-XR) 500 MG 24 hr tablet Indications: Encounter for weight management Take 1 tablet (500 mg) by mouth in the evening. Take with meals Do not crush, chew, or split. 30 tablet 11 12/09/2023 Active take 1 tablet by mouth every twe nty-four hours Completed/Discontinued Medications Medication Drug Class(es) Dates Sig (Normalized) Sig (Original) aspirin 81 mg oral tablet (12 sources) Platelet Aggregation Inhibitor, Nonsteroidal Anti-inflammatory Drug take 1 tablet by mouth once daily Aspirin 81 81 MG 1 tablet Orally Once a day Not-Taking fluticasone propionate 0.05 mg/actuat metered dose nasal spray (3 sources) Corticosteroid Start: 06-13-2023 End: 02-04-2024 take 2 spray(s) nasal route once daily fluticasone (Flonase) 50 MCG/ACT nasal spray Administer 2 sprays into each nostril Daily 06/13/2023 02/04/2024 Discontinued phentermine hydrochloride 37.5 mg oral tablet (18 sources) Sympathomimetic Amine Anorectic Start: 12-09-2023 End: 04-10-2024 take 1 tablet by mouth before mealtime phentermine (Adipex-P) 37.5 MG tablet Indications: Encounter for weight management Take 1 tablet (37.5 mg) by mouth in the morning. Take before meals. 30 tablet 02/04/2024 03/11/2024 Discontinued take 1 tablet by goyo th once daily before breakfast Phentermine HCl 37.5 MG take 1 tablet by mouth every morning BEFORE BREAKFAST Oral for 30 Days Active propranolol hydrochloride 40 mg oral tablet (3 sources) beta-Adrenergic [place] Start: 05-29-2023 End: 02-04-2024 take 1 tablet by mouth in the morning propranolol (Inderal) 40 MG tablet Take 40 mg by mouth in the morning. 05/29/2023 02/04/2024 Discontinued Problems Active Problems Problem Classification Problem Date Documented Date Episodic/Chronic Abdominal pain (9 sources) Pelvic and perineal pain; Translations: [Pain in female pelvis] Onset: 09-05-2021 Episodic Administrative/social admission (6 sources) Patient encounter status; Translations: [Persons encountering health services in other specified circumstances] Onset: 03-11-2024 02-04-2024 Episodic Chronic obstructive pulmonary disease and bronchiectasis (1 [...] in childhood and adolescence] Chronic Female infertility (15 sources) Female infertility associated with anovulation; Translations: [Anovular menstruation] Onset: 05-08-2022 Chronic Fracture of lower limb (4 sources) Displaced fracture of medial condyle of right tibia, initial encounter for closed fracture; Translations: [Nondisplaced fracture of right tibial spine, initial encounter for closed fracture] Onset: 09-27-2021 Resolved: 12-06-2021 Episodic Headache; including migraine (2 sources) Headache; including migraine; Translations: [Headache, unspecified] Onset: 05-27-2023 Joint disorders and dislocations; trauma-related (6 sources) Patellofemoral disorders, right knee; Translations: [Patellofemoral syndrome of right knee] Onset: 02-21-2016 01-27-2023 Chronic Menstrual disorders (6 sources) Irregular menstruation, unspecified; Translations: [Missed period] Onset: 05-08-2022 01-27-2023 Chronic Mood disorders (1 source) Mood disorders; [...] mass index (BMI) 40.0-44.9, adult Chronic Other nutritional; endocrine; and metabolic disorders (2 sources) Weight increased; Translations: [Abnormal weight gain] 02-04-2024 Episodic Other and delivery including normal (4 sources) Encounter for test, result positive; Translations: [ENC TEST RESULT POSITIVE] Onset: 06-05-2022 Episodic Residual codes; unclassified (1 source) Daytime somnolence; Translations: [Other hypersomnia] Chronic Residual codes; unclassified (1 source) Sleep apnea; Translations: [Sleep apnea, unspecified] Chronic Residual codes; unclassified (3 sources) Sleep apnea, unspecified; Translations: [Sleep apnea, unspecified] Onset: 05-20-2023 Chronic Residual codes; unclassified (1 source) Other hypersomnia Chronic Residual codes; unclassified (1 source) Family history of epilepsy and other diseases of the nervous system Episodic Unclassified (1 source) Unknown / UNK(Unknown) Onset: 11-18-2016 Unclassified (1 source) CONTACT W/AND (SUSP) EXPOS COVID-19; Translations: [CONTACT W/AND (SUSP) EXPOS COVID-19] Onset: 09-14-2021 Past or Other Problems Problem Classification Problem Date Documented Date Episodic/Chronic Genitourinary symptoms and ill-defined conditions (1 source) Personal history of urinary (tract) infections; Translations: [PERS HX URINARY TRACT INFECTIONS] Onset: 10-03-2021 Episodic Immunizations and screening for infectious disease (1 source) Encounter for screening for human papillomavirus (HPV); Translations: [ENC SCREENING HUMAN PAPILLOMAVIRUS] Onset: 08-22-2021 Episodic Mood disorders (1 source) Emotional lability; Translations: [EMOTIONAL LABILITY] Onset: 10-03-2021 Episodic Other complications of (5 sources) Missed miscarriage; Translations: [Missed ] Onset: 07-09-2016 01-27-2023 Episodic Other connective tissue disease (5 sources) Muscle weakness; Translations: [Muscle weakness (generalized)] Onset: 09-09-2016 01-27-2023 Episodic Other lower respiratory disease (5 sources) Cough; Translations: [Cough] Onset: 01-27-2023 01-27-2023 Episodic Other non-traumatic joint disorders (7 sources) Pain in right knee; Translations: [Pain in joint, lower leg] Onset: 09-09-2016 01-27-2023 Episodic Other non-traumatic joint disorders (5 sources) Limitation of joint movement; Translations: [Stiffness of unspecified knee, not elsewhere classified] Onset: 09-09-2016 01-27-2023 Episodic Other screening for suspected conditions (not mental disorders or infectious disease) (9 sources) Encounter for screening for malignant neoplasm of cervix; Translations: [ care status] Onset: 07-08-2016 Episodic Unclassified (1 source) Intractable chronic migraine with aura and without status migrainosus G43.E19 Viral infection (5 sources) Viral disease; Translations: [Viral infection, unspecified] Onset: 01-27-2023 01-27-2023 Episodic Results Test Name Value Interpretation Reference Range Facility Provider Orderson 03-12-2024 Provider Orders [id number] Lab - Toxicology Results [id number] QuantiFERON-TB Gold Pluson 1 QuantiFERON-TB Gold Plus Negative Invalid Interpretation Code Negative [facility] Comment on above: Result Comment: No r esponse to M tuberculosis antigens detected. Infection with M tuberculosis is unlikely, but high risk individuals should be considered for additional testing (ATS/IDSA/CDC Clinical Practice Guidelines, 2017). The reference range is an Antigen minus Nil result of <0.35 IU/mL. Chemiluminescence immunoassay methodology Performed At: [facility] [id number] Catherine Best PhD Ph:[phone] Performed By: #### 1 [id number] #### [facility] (DEFAULT) [address] [place] [address] QuantiFERON Incubation Incubation performed. Invalid Interpretation Code [facility] Comment on above: Result Comment: Perf ormed At: [address] [id number] Catherine Best PhD Ph:[phone] Performed By: #### 7 [id number] #### [facility] (DEFAULT) [address] [place] [address] HBSab Qnt LCon 02-14-2024 Hep B Surf Ab Quant LC 11.3 mIU/mL Invalid Interpretation Code Immunity>10 [facility] Comment on above: Result Comment: Stat us of Immunity Anti-HBs Level Inconsistent with Immunity 0.0 - 10.0 Consistent with Immunity >10.0 Performed At: [address] [id number] Catherine Best PhD Ph:[phone] Performed By: #### 7 [id number] #### [facility] (DEFAULT) [address] [place] [address] Measles/Mumps/Rubella Immuni ty LCon 02-14-2024 Mumps Abs, IgG LC <9.0 Low Immune >10.9 [facility] Comment on above: Result Comment: Nega tive <9.0 Equivocal 9.0 - 10.9 Positive >10.9 A positive result generally indicates past exposure to Mumps virus or previous vaccination. Performed At: [address] [id number] Catherine Best PhD Ph:[phone] Performed By: #### 1 [id number], [id number], [id number] #### [facility] (DEFAULT) [address] [place] [address] Rubella Antibodies, IgG LC 1.95 index Invalid Interpretation Code Immune >0.99 [facility] Comment on above: Result Comment: Non- immune <0.90 Equivocal 0.90 - 0.99 Immune >0.99 Performed By: #### 1 [id number], [id number] #### [facility] (DEFAULT) [address] [place] [address] Rubeola Ab, IgG, EIA LC 39.7 AU/mL Invalid Interpretation Code Immune >16.4 [facility] Comment on above: Result Comment: Nega tive <13.5 Equivocal 13.5 - 16.4 Positive >16.4 Presence of antibodies to Rubeola is presumptive evidence of immunity except when acute infection is suspected. Performed By: #### 0 [id number], [id number], [id number] #### [facility] (DEFAULT) [address] [place] [address] Nicotine Metabolite, Urine L Con 02-14-2024 Cotinine LC Negative Invalid Interpretation Code Igkldl=653 [facility] Comment on above: Result Comment: Perf ormed At: [facility] [address] [facility] [place], [place] [id number] Apolonia Shepherd PhD Ph:[phone] Performed By: #### 1 [id number] #### [facility] (DEFAULT) [address] [place] [address] Provider Orderson 02-13-2024 Provider Orders [id number] Normal [facility] MR head/brain wo/w conon MR head/brain wo/w con [facility] [place] [address] MRI Report Signed Patient: Saima Yancey MR#: [id number] : 1995 Acct:[id number] Age/Sex: 28 / F ADM Date: 05/27/23 Loc: MR Room: Type: [facility] Attending Dr: Amanda Samuel APRN, ANODIC OPERATOR-C Copies to: Amanda Samuel APRN, CNP Ordering [...] Radha Mireles M.D.05/28/2023 8:59 AM Dictation Location: [place] [address] Transcribed By: [facility] 05/28/2359 Dictated By: Radha Mireles MD 05/28/2352 Signed By: 05/28/23858 Normal [facility] Coding Summaryon 05-08-2023 Coding Summary HTMLBase 64 AwxamllnOHs0rMb+PGhlYWQ+PE1FV GIrK64koLMcjQ9cJ0YTHWzZOhtwDD KHZYrPKpOyzqUeDO8cbMKeARIu IC8+EC9mBWHhAxlvgDUhc0Q9eBC4Y 55nqu4jDBbibCW6WPUuSkZonfczo9 fxzEk0TInkVeorVqWv GMKxiG10MAR9oZ03Mr29bABjuXPbl 1zjgXu5WzQjQCFbDMP0gMplWAfvn9 EuIRMmY67qzTAyg7M6 EGBmwVghuQNqOdUkeQH4hB7gOZicj ohsv2vwiwqbLik6cy84gTWsa9T4gH G4E7GgicS9IOMjyIGp ZyevbPCDaP7weqnkb5xhjgneWlSfL OGyBCe3SFr4UYXsyQupUzPrYK04MY Q1ZWUvvoWvP4VeHJWs tPvsHcG0h9P2Tw9MA0RUSlbhG4PZK UFSWTwvdGQ+HA43ob11E7JxPtbaRd x4MUVuCAL9uFD8yC5r BCPxFVneq8L7qGK8N3WssvAobu9bg 9veGPRpUXttA77yqGWie1V8XFEnoE E8XVNksMedKiZhdJ25 Oyc+MRNffWelf4OiOgmzz8fnq3zbe Kr1PicyKKOzuhUvjFjzTYG2o8YiKy 4yMBBquJZ5sZX9uQ9c UyYmZnD9HNqmA901ZuNbiJYeNahgO 25lY1PesAX+QUKbBbt2SDLwnAuuFG 4lB7DiQVJtiosclPWm oOuaBR9yJVXjzsjpJDIxtO3kEIIqP 6k3XaJbTlB7WOjsI9BkSGRxbkqoMq 91jD3mAfCjEeY2CTju V0DquhU5JXFauCAjVMimTCN3K02jd 4H3UJJoRHWvZZK3zAC3qE8ayDphzx ogbGVmdDsgdmVydGlj GWkxEAexC965INVeeVnzCjRqTYevO yBEYXRlOiAgMDEvMTEvMjAyNDwvdG Q+DORuVFV5jHdiCKQa wUBjAKsoYa5ygQuohNfnEJ2nZPZbv kkzXZSayO9yBDJymGDrnAybZB6oET Vmptglo977TjIfZCL9 HFXaiPEhS7FuvP2rDhWxVRIkKOGcN 0KopPLhIHjhC110RPouFuV5OPDvva DhU6MmPTTklZblHvF4 l9V5Zd0Ng8YljshvY0PndCTuRiKlQ oboHSt2Z2AyYagwdEZ+ON75GYDyXG 27ZAx9IAE2kTgiIVpj NTYpW9MqkN0mBmAxREBdGEGiHgk+P HRhYmxlIHdpZHRoPScxMDAlJyBzdH doGI0hWb3eIKKmTHCl dWxhbSQxTpUcs4pbMBCmANjlLB4qx TioI2RdsZE8UKQjp6e6Hl56H41bI2 JvdXA+RMUvsIG4bGU7 uF2nHzJtQnZ2YFieH465PsAmqNDiN vivb0wat6umvGc6JmV1AMFwrvAwjQ zaFEN7u2WlCe78O78u YKokQSGeFDVtADVjJDPnbYrtvr2ed G9wIi8+NVJxdNY6rCG5uG6tYeUmMq I1KMbcB473EuTemTIe Xhisa6iym8xbwZx9BxYgITYgoiJtj UvcSJR8k4CoMx69K5OnuSlmh2NsCm g7nn68uRWaa5R6yHA7 H1MbAWBaealteKVwyGdvUA0zNEOdk fwmYUUzfR2gPZUwS9b4YxUaPcI7XW ewO4TajnD3VNKkbXXz LCLxtZYLuZ5ppmvpv3carorzOfKqU UEuYOy0FUa9DGGcpRbcOlZgFSE1Ox Q3MYE5lOSavC3crPqj ifsnfB4jXgi+LEV9oMTjkMWUZS5xP jwvdGQ+WYTjYBV6zIjxGIueYEOunG 2gLFCbF4h8LgIaLcG4 AUfdZ7NuewZ7HYUcsELiUREubVALp R2tlxalv3fblcmuGdJhYTMmNEh1EV x3SSAuqYvgPlYuHUY5 XbO2KQL4dXPfxK6kjDznugexaB8lA yc+LtgkuAixTJE8UVl1B4WyIxv0VG TtzPbhTG5duVUtCQii As2goTgtmPesTP9rMTQwbdytu001J eOqp2rgYALclAOwILeeRVF2A31xs2 Y4ZARcAPRwZRR3rNE0 cV5rgWdxynoyrBKriVuctpDvdFinO BewDQtcS297LNNrzVimPkIcHTq4S6 EsDkr4AURyoDkpEJ2s eAEiVUtgYr7yyNpcsIukKQ3dUPZte ayyl112ElAev7qtOJBajQRrZWhzRO M1O16cb8G2PPCaHWOm AZH2cHU2jI5smBpydiwjrVBedWejv oWwyXsuGFjqGWexW002OOZmtQasTy RztYg5K2PhBac4IWXg bAvpVR0rwFWzVTfoSm3luOiplFqhI D0wTDVoqwcdo908RmEii7esUGButW KcDQwoKNJ7S86cz6I9 XLVbJYIoWTF7rMN3dH2lhUwekfekm FKpxOlbfqJdkPerCJeiFWniE158NJ RvcDsnPlBhdGllbnQg NPajSSy3K5CuMizvkYD+WN34KSJiQ E40yQDglLGnr7vlaQk1NtAkKREkVA C3lMqjPXyeo3KzUTEc J42jfGBxa9I7YIObtPowpLOrWzRra QT3qT6oBZxajbqrs1epuyedWqjot0 tgzw17sT72N03qVIoz CEBaQUJvZLBqVLKfvIkekm9ioK1hN i8+JPDzfEC5lQC3xN8wRCOjZpN4DN ykT534NjUrcVHzBaug s3xes7sfqIz2OmV2FCMcyjGlbBrxQ UG0s8XxDa12A86gIXubEAZtGKYyQJ TsXFBxqMevym4fqO0h Ii8+DOIjyLI9vOJ8gI5oGjOjCyI0S PzcS312VkSkuXXqSnpnI80uM3IilE A+YFPvLnr2CIKfmJfz WP8wzZBhCThaWs8gBBB0ZcGjFsBvA AxmJ2VtJYUiwgkpcedoaBA9UMZkHO GdfM88Cy0ehFesETAl yQZOmX7taygwb4fzphqmSzZsXGNxP Dt0GNf6NDNdqHxePpCgWHJ3KhZ3NG Q3tHSclQ6opNasajsr xQ1dJ2YlVNCqvaxrXd61aV4cPnGkV yX1GMrdGks+ZXFMGTEARiesZ4sSMI NLGGiLUx30R7TkLlq0 BMTwlJduET1wxMBoWXrsRz0cgMjjs NalLB2lOKCmrmioGRNvmL9jGSWxsU BbxYleAZ9bGNLnfyxp j931YkEfZWU1ODQyjRDmN3YloU5mI gIyXXPnVMDgH1GcdVYxNJebX817DV unHsF2XHXfbgJvZ8Nt DVGxfIwnFbN9z8D8Yy7eIy8vFk7rG Zm4XJ91DP32zTZwz2P0xTJ3H5EpDM OwdhxjicgmuCD7HESz CZLbhF78zDNmZFkrOu2tu2V9y257R OEuYGOmtJ74Sn1pnPteHAGcxMACcW 5yemtum3qcampwZhEp GWHjEMx1FEd5IFDdrScpEaKeYDR3G aD5HLA7cHFwgZ3xiKppzupfmY6xDr c+YaLtREZdhcX7A1Fv Cha3BINbsBoxMY0juIJlAHakWq8nh JcmdNjcOF5pKSYfigvwVSHcjL2kOF ZjsHRwxSpoIU6nXLUh axifp605ErMiFXY3SFLkdQBeR1Jao R7ySxGmBYJkWEZuQ9AouWBrOVeiA5 85LFzsDiI9YAXuxzAc W1IpAMIknAyzFaQ4o9T0Ef3EEZ6WH EW8V4PoFol1VUKrbFazRD0oqQIrRX giUx7mwLpixXfsGJ2c IMOioaijYLEkwQ8aJEKabFSisMymL Q7oCXUwkdlpp408UtZqMHC1EKJajC BnO7AbcJ2nXvKbKWPb WBEwD3OlzFHrPNnaV282XHwgCbD3R WFdahUwL1YbZEGshZfkDcP6x7T0Ys 2TtWVbI6RuB2h4Y6Vk PjwvdHI+AS32KRFzHB24sBNsoZHgs 6qxpEk7ZyYgLOTxMVS4aSabYWuqy9 GzILHgM21cwFEcj7A5 MQTvnZvndEIcVgKliFC1vG9pFKicw dfro9xtoxybCmauk2iyzo39bO55Y7 9sIHdpZHRoPSIzMCUi XVGvtNonka3jlA1oTo2+GHYkgHO1x KJ6yH6pIoWvAeC4ZVrtQ955TsOyrZ RwWriyn1tor5gujTk5 KrOtGAIoxqOidYwdKYI2y9JqNk50A 29sIHdpZHRoPSIyMCUiIHZhbGlnbj 2rdF1rNc6+AD9xq9qh xt57xM23rET+IYPfUQL7sEmyJBwmS JOkuJ3yMUtlAqH8MWJiNxEuwD88hE RoFTczQa3jiUztuWcp RR4kXZLwfhutp925AkVqh8lyMLXsr HJgLKqmSOI1N72tx4J7JBCcQCHdFZ F3gCD6fE1rvKfqtayn mIPtaLqkcnEzwNeeFAnnOEvkB075D CHpxIuuJgXlcLNoU6ubucDMEZ6gJk wvdGQ+VYNxZVO0mHpw LRkmYYIywZ7tGVWiA4x7OsFbEaM5A XuuJ2QjsuS4JCPbcDEdPDOfhOWUhO 3xmzaoj4mbmdmaWjZu OZBmHPu4RXf2WSMinXkeMdIeLAU1G oV3CWG9iSTdcS9foMalcvgemS4sWs c+RklOOjwvdGQ+PHRk UUV8yGunFGrxGNLggH8lMAOjZ8w8F dZuWcG5GVlhF1KhxcJ6YGJrzVZbUS AcyFIAvD1ibaphb8et dstiYsHwOWDiKAf3KZe0EACmzBxeB oTgLLV0LvJ4EWH5kVDqkT7moOazpn hlpS9lZai+TVJOOjwv dGQ+EEBfXFF6kYdkXCauEZYwsP0yZ RZzB4v1GxLpFvP8BHdgS4TqlrI1ZQ IojEVbPXVliRFJvI7c elfid9btijacBuXhPWGaJWi5MWd7J DUqyVieYiYqSUH2ElE8IML3xKCyzO 2toEgfpzhxvX5qMvc+ UAF4UQG2YF80BH12H4FqJpukrDGjb +PHRhYmxlIHdpZHRoPScxMDAlJy PvoUxmOB7hTs5iDYFm LWN (more content not included)... [facility] Electronic Messagingon 04-27 Electronic Messaging --- --- --- --- --- --- --- --- --- From: Nabil ([email or web address])Nabil To: SAIMA YANCEY Sent: 04/27/23 05:06:20 AM EST Subject: Discharge Summary Ready to View A summary regarding your recent visit is available in the Documents section of your Health Record. [facility] ED Clinical Summaryon 2022 ED Clinical Summary [facility] Emergency Department [address] [place] [address] ED Clinical Summary PERSON INFORMATION Name: SAIMA YANCEY Age: 28 Years Sex: FEMALE : 1995 MRN: Acct#: Visit Reason: Headache; HEADACHE, NECK PAIN Arrival: 04/26/2023 07:37:50 Discharge: 04/26/2023 09:32:00 LOS: 000 01:55 Check In: 04/26/2023 07:37:50 Checkout:04/26/2023 09:32:00 Address: [address] [place] [address] PCP: Amanda Samuel CNP PROVIDER INFORMATION Provider Role Assigned Unassigned iVrgie Palafox RN ED Nurse 04/26/2023 07:39:31 Anthony [...] Headache Follow-Up: With: Address: When: Amanda Samuel [address] [place] [address] Business (1) Within 3 to 5 days Comments: Call for follow up appointment DIAGNOSIS: Migraine Patient Understands: Yes - Patient/family/caregiver verbalizes understanding of instructions given Comment: [facility] ED Note-Nursingon 04-26-2023 ED Note-Nursing Patient arrives with c/o headache that started around 1700 yesterday. Pain rated 6/10. Patient last took ibuprofen 2 hrs prior to arrival. States nausea and eye pressure. States she started Addipex 3 weeks ago no other medical hx. [facility] ED Patient Summaryon 023 ED Patient Summary [facility] - Emergency Department [address] [place] [address] PATIENT DISCHARGE INSTRUCTIONS Patient Information Name: SAIMA YANCEY Age: 28 Years Date of : 1995 [facility]: [id number] Reason For Visit: Headache; HEADACHE, NECK PAIN Arrival Time: 04/26/2023 07:37:50 Primary Care Physician: Amanda Samuel CNP Attending Physician: Anthony Rios MD Comment: Visit Diagnosis: Diagnoses This Visit Headache ([id number]) Migraine (G43.909) The Pharmacy at [facility] is open Friday through Friday from [...] alcohol and/or drug addiction problems; contact the [facility] 18/11 Crisis Hotline -Text 3UKNF dq 528188. If you received any narcotics, sedation, or [...] legal documents With: Address: When: Amanda Samuel [address] [place], [place] [id number] Business (1) Within 3 to 5 days Comments: Call for follow up appointment Medication Information: The exam and treatment you received today in the [facility] Emergency Department were for an urgent problem and are not intended as complete care. It is important for you to follow up with a doctor, nurse practitioner, or physician?s nursing assistant for ongoing care. If your symptoms [...] so we can reach you if necessary. [facility] Emergency Department has provided you with a complete list of medications post discharge. Please inform your roller inspector and mender/provider of your visit and for further instruction [...] Eating or (more content not included)... Normal [facility] PROGESTERONEon 07-17-2022 Progesterone <0.1 Normal [facility] Comment on above: Result Comment: Foll icular phase 0.1 - 0.9 Luteal phase 1.8 - 23.9 Ovulation phase 0.1 - 12.0 First trimester 11.0 - 44.3 Second trimester 25.4 - 83.3 Third trimester 58.7 - 214.0 Postmenopausal 0.0 - 0.1 Performed By: #### P SPRING #### [facility] [address] [place] [address] Dr. Aaron Flores PREG QUANT HCGon 07-15-2022 HCG QUANT <1 Normal [facility] Comment on above: Performed By: #### P REGQNT #### [facility] [address] [place] [address] Dr. Aaron Flores HCG RANGE SEE BELOW Normal [facility] Comment on above: Result Comment: 5-50 0.2-1 WEEK 50-500 1-2 WEEKS 100-5,000 2-3 WEEKS 500-10,000 3-4 WEEKS 1,000-50,000 4-5 WEEKS 10,000-100,000 5-6 WEEKS 15,000-200,000 6-8 WEEKS 10,000-100,000 2-3 MONTHS Performed By: #### P REGQNT #### [facility] [address] [place] [address] Dr. Aaron Flores PREG QUANT HCGon 06-05-2022 HCG QUANT <1 Normal [facility] Comment on above: Performed By: #### P REGQNT #### [facility] [address] [place] [address] Dr. Aaron Flores HCG RANGE SEE BELOW Normal [facility] Comment on above: Result Comment: 5-50 0.2-1 WEEK 50-500 1-2 WEEKS 100-5,000 2-3 WEEKS 500-10,000 3-4 WEEKS 1,000-50,000 4-5 WEEKS 10,000-100,000 5-6 WEEKS 15,000-200,000 6-8 WEEKS 10,000-100,000 2-3 MONTHS Performed By: #### P REGQNT #### [facility] [address] [place] [address] Dr. Aaron Flores PROGESTERONEon 05-08-2022 Progesterone 9.0 ng/mL Normal [facility] Comment on above: Result Comment: Foll icular phase 0.1 - 0.9 Luteal phase 1.8 - 23.9 Ovulation phase 0.1 - 12.0 First trimester 11.0 - 44.3 Second trimester 25.4 - 83.3 Third trimester 58.7 - 214.0 Postmenopausal 0.0 - 0.1 Performed By: #### P ROGES #### [facility] [address] [place] [address] Dr. Aaron Flores PREG QUANT HCGon 05-06-2022 HCG QUANT 1 mIU/mL Normal [facility] Comment on above: Performed By: #### P REGQNT #### [facility] [address] [place] [address] Dr. Aaron Flores HCG RANGE SEE BELOW Normal [facility] Comment on above: Result Comment: 5-50 0.2-1 WEEK 50-500 1-2 WEEKS 100-5,000 2-3 WEEKS 500-10,000 3-4 WEEKS 1,000-50,000 4-5 WEEKS 10,000-100,000 5-6 WEEKS 15,000-200,000 6-8 WEEKS 10,000-100,000 2-3 MONTHS Performed By: #### P REGQNT #### [facility] [address] [place] [address] Dr. Aaron Flores PROGESTERONEon 03-10-2022 Progesterone <0.1 Normal [facility] Comment on above: Result Comment: Foll icular phase 0.1 - 0.9 Luteal phase 1.8 - 23.9 Ovulation phase 0.1 - 12.0 First trimester 11.0 - 44.3 Second trimester 25.4 - 83.3 Third trimester 58.7 - 214.0 Postmenopausal 0.0 - 0.1 Performed By: #### P ROGES #### [facility] [address] [place] [address] Dr. Aaron Flores PROGESTERONEon 01-04-2022 Progesterone 0.2 ng/mL Normal [facility] Comment on above: Result Comment: Foll icular phase 0.1 - 0.9 Luteal phase 1.8 - 23.9 Ovulation phase 0.1 - 12.0 First trimester 11.0 - 44.3 Second trimester 25.4 - 83.3 Third trimester 58.7 - 214.0 Postmenopausal 0.0 - 0.1 Performed By: #### P SPRING #### [facility] [address] [place] [address] Dr. Aaron Flores CBC AUTO DIFFon 09-14-2021 BASO # 0.0 103/ul Normal 0.0-0.1 [facility] Comment on above: Performed By: #### C BC #### [facility] [address] [place] [address] Dr. Aaron Flores Basophils/100 WBC (Bld) 0.4 % Normal 0.2-2.0 [facility] Comment on above: Performed By: #### C BC #### [facility] [address] [place] [address] Dr. Aaron Flores EO # 0.1 103/ul Normal 0.0-0.7 [facility] Comment on above: Performed By: #### C BC #### [facility] [address] [place] [address] Dr. Aaron Flores Eosinophils/100 WBC (Bld) 1.1 % Normal 0.9-7.0 [facility] Comment on above: Performed By: #### C BC #### [facility] [address] [place] [address] Dr. Aaron Flores Erythrocyte distribution width (RBC) [Ratio] 11.9 % Normal 11.0-15.0 [facility] Comment on above: Performed By: #### C BC #### [facility] [address] [place] [address] Dr. Aaron Flores Hematocrit (Bld) [Volume fraction] 46.0 % Normal 36.0-48.0 [facility] Comment on above: Performed By: #### C BC #### [facility] [address] [place] [address] Dr. Aaron Flores Hemoglobin (Bld) [Mass/Vol] 15.1 g/dL Normal 12.0-16.0 [facility] Comment on above: Performed By: #### C BC #### [facility] [address] [place] [address] Dr. Aaron Flores IG # 0.00 10e3/ul Normal 0.00-0.03 [facility] Comment on above: Performed By: #### C BC #### [facility] [address] [place] [address] Dr. Aaron Florse IG % 0.0 % Normal 0.0-0.5 [facility] Comment on above: Performed By: #### C BC #### [facility] [address] [place] [address] Dr. Aaron Flores LYMPH # 1.7 103/ul Normal 1.2-3.8 [facility] Comment on above: Performed By: #### C BC #### [facility] [address] [place] [address] Dr. Aaron Flores Lymphocytes/100 WBC (Bld) 31.9 % Normal 20.5-60.0 [facility] Comment on above: Performed By: #### C BC #### [facility] [address] [place] [address] Dr. Aaron Flores MANUAL DIFF REQ NO Normal [facility] Comment on above: Performed By: #### C BC #### [facility] [address] [place] [address] Dr. Aaron Flores MCH (RBC) [Entitic mass] 29.7 pg Normal 26.7-34.0 [facility] Comment on above: Performed By: #### C BC #### [facility] [address] [place] [address] Dr. Aaron Flores MCHC (RBC) [Mass/Vol] 32.8 g/dL Normal 29.9-35.2 [facility] Comment on above: Performed By: #### C BC #### [facility] [address] [place] [address] Dr. Aaron Flores MCV (RBC) [Entitic vol] 90.6 fL Normal 81.0-99.0 [facility] Comment on above: Performed By: #### C BC #### [facility] [address] [place] [address] Dr. Aaron Flores MONO # 0.3 103/ul Normal 0.3-0.8 [facility] Comment on above: Performed By: #### C BC #### [facility] [address] [place] [address] Dr. Aaron Flores Monocytes/100 WBC (Bld) 5.4 % Normal 1.7-12.0 [facility] Comment on above: Performed By: #### C BC #### [facility] [address] [place] [address] Dr. Aaron Flores NEUT # 3.3 103/ul Normal 1.4-6.5 [facility] Comment on above: Performed By: #### C BC #### [facility] [address] [place] [address] Dr. Aaron Flores Neutrophils/100 WBC (Bld) 61.2 % Normal 43.0-75.0 [facility] Comment on above: Performed By: #### C BC #### [facility] [address] [place] [address] Dr. Aaron Flores Platelet mean volume (Bld) [Entitic vol] 11.9 fL Normal 9.5-13.5 [facility] Comment on above: Performed By: #### C BC #### [facility] [address] [place] [address] Dr. Aaron Flores PLT 182 103/ul Normal 150-450 [facility] Comment on above: Performed By: #### C BC #### [facility] [address] [place] [address] Dr. Aaron Flores RBC 5.08 106/ul Normal 4.20-5.40 [facility] Comment on above: Performed By: #### C BC #### [facility] [address] [place] [address] Dr. Aaron Flores WBC 5.4 103/ul Normal 4.0-11.0 [facility] Comment on above: Performed By: #### C BC #### [facility] [address] [address] [address] Aaron Flores PREG QUANT HCGon 09-14-2021 HCG QUANT 1 mIU/mL Normal [facility] Comment on above: Performed By: #### P REGQNT #### [facility] [address] [address] [address] Aaron Flores HCG RANGE SEE BELOW Normal [facility] Comment on above: Result Comment: 5-50 0-1 WEEK 40-300 1-2 WEEKS 100-1,000 2-3 WEEKS 500-6,000 3-4 WEEKS 5,000-200,000 1-2 MONTHS 10,000-100,000 2-3 MONTHS 3,000-50,000 2ND TRIMESTER 1,000-50,000 3RD TRIMESTER Performed By: #### P REGQNT #### [facility] [address] [place] [address] Dr. Aaron Flores Covid-19 PCR ([facility])on 08-26 SARS-CoV-2 (COVID-19) RNA ROBINA+probe Ql (Unsp spec) Not detected Normal NOT DETECTED [facility] Comment on above: Result Comment: This test is not yet approved or cleared by the [place] FDA. When there are no FDA-approved or cleared tests available, and other criteria are met, FDA can make tests available under an emergency access mechanism called an Emergency Use Authorization (EUA). The EUA for this test is supported by the [employer] of Health and Human Service's (HHS's) declaration [...] consistent with SARS-CoV-2. Performed By: #### P ROGES #### [facility] [address] [place] [address] Dr. Aaron Flores PAP ACOG PANEL 2: 21 to 29on 08-27-2021 . . Normal [facility] Comment on above: Performed By: #### P ROGES #### [facility] [address] [place] [address] Dr. Aaron Flores Age Gdln ACOG Testing - [facility] Comment on above: Performed By: #### P ROGES #### [facility] [address] [address] [address] Aaron Flores DIAGNOSIS: Comment [facility] Comment on above: Result Comment: NEGA TIVE FOR INTRAEPITHELIAL LESION OR MALIGNANCY. Performed By: #### P ROGES #### [facility] [address] [address] [address] Aaron Flores Methodology: Comment [facility] Comment on above: Result Comment: This liquid based ThinPrep(R) pap test was screened with the use of an image guided system. Performed By: #### P ROGES #### [facility] [address] [place] [address] Dr. Aaron Flores Note: Comment [facility] Comment on above: Result Comment: The Pap smear is a screening test designed to aid in the detection of premalignant and malignant conditions of the uterine cervix. It is not a diagnostic procedure and should not be used as the sole means of detecting cervical cancer. Both false-positive and false-negative reports do occur. . Performed By: #### P ROGES #### [facility] [address] [place] [address] Dr. Aaron Flores Performed by: Comment [facility] Comment on above: Result Comment: Larissa Lopez, Supervisory Briquetter Operator (ASCP) Performed By: #### P ROGES #### [facility] [address] [place] [address] Dr. Aaron Flores Reflex Criteria: Comment [facility] Comment on above: Result Comment: The HPV DNA reflex criteria were not met with this specimen result therefore, no HPV testing was performed. . Performed By: #### P ROGES #### [facility] [address] [place] [address] Dr. Aaron Flores Specimen adequacy: Comment Normal [facility] Comment on above: Result Comment: Sati sfactory for evaluation. Endocervical and/or squamous metaplastic cells (endocervical component) are present. Performed By: #### P SPRING #### [facility] [address] [address] [address] Aaron Mcfarland 04-11-2017 CNOV Office Visit ([facility]) -SAIMA YANCEY ([id number]) 1995 FDa Time Provider Hslcxwopzq93/15/17 7:00 PM JAZMIN NIEVES) [facility] During your visit today, we recorded the following information about you: Temperature Pulse Blood pressure Weight 98.2 degrees 98/minute 122/67 104.3 kgSalomóndouglash PHILLIP Nieves 04/11/2017 7:35 PM SignedHPI Comments: [facility]- ANDquot; mouth issue ANDquot;HPI- Saima Ministerio is a 22 year old female who [...] history is provided by the patient. No language therapist was used.Review of SystemsConstitutional: Negative for fever.HENT: [...] of Service: EST PATIENT VISIT LEVEL 3 [[id number]]Disposition: Return if symptoms worsen or fail to improve.Follow-up and Disposition History RecordedEncounter Number: [id number] Status:Closed by JAZMIN NIEVES PA-C on 04/11/17 [facility] PROGRESSon 04-11-2017 PROGRESS HNO ID: [id number] thor: Jazmin Rosa) Sevenervice: (none)Author Type: Physician AssistantType: Progress NotesFiled: 04/11/2017 7:35 PMNote Text:HPI Comments: [facility] Visit[facility]- mouth issue HPI- Saima Yancey is a 22 year old female who presents to the [facility] with concerns of R lower gum pain [...] history is provided by the patient. No language therapist was used.Review of SystemsConstitutional: Negative for fever.HENT: Negative for congestion.Respiratory: Negative for cough.Blood pressure 122/67, pulse 98, temperature 36.8 ?C (98.2 ?F),temperature source Oral, weight 104.3 kg (230 lb), last menstrual ecwuis0804/21/2016, not currently .Physical ExamConstitutional: She is oriented [...] foods until ulcer resolveArmida Nieves PA-C Normal [facility] CNOVon 03-29-2017 CNOV Office Visit ([facility]) -SAIMA YANCEY ([id number]) 1995 FDate Time Provider Wyfqqbegyl38/2/17 8:35 AM YAAKOV RIDLEY (SUSANA) EXPNOL During your visit today, we recorded the following information about you: Temperature Pulse Respiration Blood pressure 98.2 degrees 85/minute 18/minute 128/83 Weight 103.5 kgYaakov Ridley CNP, STEPHON 03/29/2017 9:25 AM SignedHPI Comments: Pt presents [...] ICD10: N92.6- test negative- Follow up with GEOTECHNICAL DEPARTMENT MANAGER/PCP if irregular menses continues- HCG QUAL UR B/Yevgeniy Weldon CNP, STEPHON 03/29/2017 9:09 AM SignedEXPRESS [...] the person should be evaluated by an human resource intern.Contact lens wearers ? People who wear contact lenses should be evaluated by [facility] provider before treatment begins; this [...] of eye drops or ointment before returning [facility]. This treatment helps to prevent the [...] improve within twoweeks, an examination with an human resource intern may be recommended.CONJUNCTIVITIS PREVENTIONBacterial and viral conjunctivitis [...] Visit Diagnosis:Irregular menses [N92.6]Order(s):HCG QUAL UR B/O [2636421] Order #: [id number] tobramycin (TOBREX) 0.3 % ophthalmic solutionUse 1-2 [...] the person should be evaluated by an human resource intern. Contact lens wearers ? People who wear [...] within two weeks, an examination with an human resource intern may be recommended. CONJUNCTIVITIS PREVENTION Bacterial and [...] Status:Closed by YAAKOV RIDLEY CNP on 03/29/17 [facility] PROGRESSon 03-29-2017 PROGRESS HNO ID: [id number] thor: Yaakov (Patient Carrier) Igor Ridley: (none)Author Type: Nurse PractitionerType: Progress NotesFiled: 03/29/2017 [...] ICD10: N92.6- test negative- Follow up with GEOTECHNICAL DEPARTMENT MANAGER/PCP if irregular menses continues- HCG QUAL UR B/Maya Ridley CNP Normal [facility] CNOVon 01-14-2017 CNOV Office Visit ([facility]) -MINISTERIOSAIMA Nevarez ([id number]) 1995 FDate Time Provider Department01/14/17 9:00 AM JAMES JONES) [facility] During your visit today, we recorded the following information about you: Pulse Blood pressure 94/minute 120/77Barbara Roque Jones PA-C 01/14/2017 10:01 AM Signed[facility] Follow Up VisitS2016 - 9:14 AMSUBJECTIVE:Saima Nevarez Yancey a 21 year old [facility], accompanied by self only, [...] supervised home exercise program (HEP): No 5. Postal Mail Carrier: NoPassive conservative therapy in the last six months (see below) 1. Medical devises: No 2. Acupuncture: No 3. Tens unit: No 4. Prescription pain medication: Tramadol 5. NSAIDS: NoDo you fell safe at home? YesRisk assessment at risk due to fall: NONEKalie Daniel [facility] 2016 - Time: 9:20 AMThe subjective information: including chief complaint, past medical history andreview of systems, was explored in detail with the patient and edited as neededand is complete.ISIDRO Cantu[facility] Examination:BP 120/77 Pulse 94 SpO2 97% LMP [...] 2017 by Masood Jones PA-C- Ran via [employer] web site - 2 scripts for Tramadol [...] and verbalized understanding.ISIDRO Cantu-CSept2016Referring Provider: AGAPITO TORRES [[id number]]Allergies As of Date: 01/14/2017(No Known Allergies)Date Reviewed: 12/11/2016Reviewed by: Tamiko (Rn) TESSY Gray - Fully AssessedReason for Visit: Right [...] Status:Closed by JAMES JONES PA-C on 01/14/17 [facility] PROGRESSon 01-14-2017 PROGRESS HNO ID: [id number] thor: James Rosa) Kathie: (none)Author Type: Physician AssistantType: Progress NotesFiled: 01/14/2017 10:01 AMNote Text:[facility] Follow Up VisitSept2016 - 9:14 AMSUBJECTIVE:Saima Yancey a 21 year old presents [facility] Pain[facility], accompanied by self only, [...] supervised home exercise program (HEP): No 5. Postal Mail Carrier: NoPassive conservative therapy in the last six months (see below) 1. Medical devises: No 2. Acupuncture: No 3. Tens unit: No 4. Prescription pain medication: Tramadol 5. NSAIDS: NoDo you fell safe at home? YesRisk assessment at risk due to fall: NONEKalie Daniel [facility] 2016 - Time: 9:20 AMThe subjective information: including chief complaint, past medicalhistory and review of systems, was explored in detail with the patient andedited as needed and is complete.ISIDRO Cantu-[facility] 2016Physical Examination:BP 120/77 Pulse 94 SpO2 97% [...] 2016 by James Jones PA-C- Ran via [employer] web site - 2 scripts for Tramadol [...] the above and verbalizedunderstanding.ISIDRO Toledo ra-CSeptember 2016 [facility] CNDSNOTEon 12-23-2016 CNDSNOTE Discharge Note (enc) (PTFVGE) -SAIMA YANCEY ([id number]) 1995 FDate Time Provider Department12/23/16 TAMIKO SHIELDS (PT) PTFVGE During your visit today, we recorded the following information about you:Tamiko Shields, PT 12/23/2016 6:52 PM Signed[facility] TH[facility]YPHYSICAL THERAPY DISCONTINUANCE OF CAREPlan of Care Period:Initial Evaluation Date: 09/09/2016Last Visit Date: 10/07/2016Therapy Program: The following is a summary of the interventions provided forthis episode of care; HEP, Individual PT, Modalities and Therapeutic exercise.Assessment:The following is the goal status:As of last session on 10/07/2016. Patient was to return to MD for furtherrecommendation and has not returned for further PT.[place] in home exercise program. PARTIALLY METPatient will [...] Known Allergies)Date Reviewed: 12/11/2016Reviewed by: Tamiko (Rn) TESSY Gray - Fully AssessedReason for Visit: PT [...] Status:Closed by TAMIKO SHIELDS on 12/23/16 Normal [facility] PROGRESSon 12-23-2016 PROGRESS HNO ID: [id number] thor: Tamiko (Pt) Staci: (none)Author Type: Physical TherapistType: Progress NotesFiled: 12/23/2016 6:52 PMNote Text:[facility] THERAPYPHYSICAL THERAPY DISCONTINUANCE OF CAREPlan of Care Period:Initial Evaluation Date: 09/09/2016Last Visit Date: 10/07/2016Therapy Program: The following is a summary of the interventions providedfor this episode of care; HEP, Individual PT, Modalities and Therapeuticexercise.Assessmen t:The following is the goal status:As of last session on 10/07/2016. Patient was to return to MD for furtherrecommendation and has not returned for further PT.[place] in home exercise program. PARTIALLY METPatient will [...] orscheduled additional follow-up appointments.Tamiko Shields, PT Normal [facility] HISTORY PHYSICALon 7 HISTORY PHYSICAL HNO ID: [id number] thor: Diego Muller) MooreService: Pain ManagementAuthor Type: Physician AssistantType: HANDPFiled: 12/11/2016 [...] MEDICAL HISTORYDiagnosis Date- NEGATIVE MEDICAL HISTORYPAST SURGICAL WVSALOV80/2017: DANDC (MISSED AB 1ST TRIMESTER)No date: NONEPrior [...] December 11, 2016 : 2:13 PM PAGER: Normal [facility] OPERATIVE NOon 12-11-2016 OPERATIVE NO HNO ID: [id number] thor: Agapito Bearervice: Pain ManagementAuthor Type: PhysicianType: Operative ReportFiled: 12/11/2016 3:24 PMNote Text:Patient Name Medical Record #Saima Yancey [id number] of : 1995Admit Date: December 11, 2016Sex / Age: female/21 year oldDischarge Date: December 11, 2016Date: December 11, 2016Attending Physician: GAVINO Alvarezervice: OPERATIVE REPORTLOG ID: [id number]/Procedure Date: 12/11/2016Incision/Procedure Start Time: 3:12 PMIncision Close/Procedure [...] 2 mL of a bupivacaine 0.5% and Jkflvoe27.33 mg was injected at each of the sites. Needle was then removed andbleeding was nil. Sterile dressing was applied. There were nocomplications. No specimens collected. She tolerated the procedure well.She was then taken to the Post-block Recovery Room in stable conditionComplications: None.Estimated Blood Loss: None.Drains: None.Implantable Device: None.Specimen: None.IAgapito MD, performed the entire procedure.ASSESSMENT AND PLAN:Saima Roque Ministerio is status post Right genicular nerve block. She did verywell without any apparent complications. She is to return to clinic in oneweek for follow up. Postoperative instructions were given, she voicedunderstanding. She was discharged to home in stable condition.Myke Alvarez 2016 [facility] -[facility] ([id number]) [address] [facility] [address] Department11/18/16 10:20 AM AGAPITO TORRES [facility] During your visit today, we recorded the following information about you: Pulse Blood pressure 77/minute 117/73Agapito Torres MD 11/18/2016 2:12 PM [facility] Pain Management Initial EvaluationJuly 2016 - 11:03 AMThis appointment was requested by Self, for my medical opinion regarding? theevaluation and management of the patient's Saima Yancey problems, and myfinal recommendations will be communicated to the requesting health careprovider by way of the shared medical record for internal providers or lettervia the [employer] for external providers.SUBJECTIVE:Saima Yancey a 21 year old [facility], accompanied by self only, [...] MEDICAL HISTORYDiagnosis Date- NEGATIVE MEDICAL HISTORYPAST SURGICAL VVWQELN56/2017: DANDamp;C (MISSED AB 1ST TRIMESTER)No date: NONESocial [...] supervised home exercise program (HEP): No 5. Postal Mail Carrier: NoPassive conservative therapy lasting 6 weeks in [...] substance prescriptions werereported.- 11/18/2016 by ANNABELLE Cantu ANDamp; ASSESSMENT: James Jones PA-C was present [...] allowing me to participate in [facility]'s care.Agapito Torres M.D.November 18, 2016Referring Provider: JORDI JACKSON [[id number]]Allergies As of Date: 11/18/2016(No Known Allergies)Date Reviewed: [...] by AGAPITO TORRES MD on 11/18/16 Normal [facility] 11-18-2016 HOSP Patient:Emilee Yancey by LMRN: Height:5' [...] for the following basenames: K,HCTProgress Notes ([facility]):Agapito Torres MD 11/18/2016 2:12 PM Signed[facility] Initial EvaluationJuly 2016 - 11:03 AMThis appointment was requested by Self, for my medical opinion regarding? theevaluation and management of the patient's Saima Yancey problems, and myfinal recommendations will be communicated to the requesting health careprovider by way of the shared medical record for internal providers or lettervia the [employer] for external providers.SUBJECTIVE:Saima Yancey a 21 year old [facility], accompanied by self only, [...] MEDICAL HISTORYDiagnosis Date- NEGATIVE MEDICAL HISTORYPAST SURGICAL BQDNNVF26/2017: DANDC (MISSED AB 1ST TRIMESTER)No date: NONESocial [...] supervised home exercise program (HEP): No 5. Postal Mail Carrier: NoPassive conservative therapy lasting 6 weeks in [...] with the above and verbalized understanding.Thank you . Dr. Jordi Jackson for allowing me to participate in Saimakamron Fernandes's care.Agapito Torres M.D.November 18, 2016Previous VersionProgress Notes ([facility]):Nick Kaur Ma 11/11/2016 9:57 AM SignedI called Saima Yancey on November 11, 2016 at 9:55 AM. Left message for patientto call the office. new patient letter sent out also.She was advised of the following:Dear Mr./Mrs/Ms. yancey, This is a follow up phone call regarding yourappointment with Dr. torres. [facility]16 at arrival time [...] left message, Letter sent out on11/11/16.Nick Kaur Ma [facility] PROGRESSon 11-18-2016 PROGRESS HNO ID: [id number] thor: Agapito Bearervice: (none)Author Type: PhysicianType: Progress NotesFiled: 11/18/2016 2:12 PMNote Text:[facility] Initial EvaluationJuly 2016 - 11:03 AMThis appointment was requested by Self, for my medical opinion regarding?the evaluation and management of the patient's Saima Yancey problems,and my final recommendations will be communicated to the requesting healthcare provider by way of the shared medical record for internal providersor letter via the [email or web address] for external providers.SUBJECTIVE:Saima Yancey a 21 year old [facility], accompanied by self only, [...] MEDICAL HISTORYDiagnosis Date- NEGATIVE MEDICAL HISTORYPAST SURGICAL AMYALGL12/2017: DANDC (MISSED AB 1ST TRIMESTER)No date: NONESocial [...] supervised home exercise program (HEP): No 5. Postal Mail Carrier: NoPassive conservative therapy lasting 6 weeks in the last six months (seebelow) 1. Medical devises: No 2. Acupuncture: No 3. Tens unit: No 4. Prescription pain medication: No 5. NSAIDS: YesDo you feel safe at home? YesRisk assessment at risk due to fall:MAURICIOBonniefina Palumbo 2016 Time: 11:14 AMThe subjective information, [...] Jeniffer Yancey's care.Agapito Torres M.D.November 18, 2016 [facility] 11-11-2016 [facility] Telephone ([facility]) -SAIMA YANCEY ([id number]) 1995 FDate Time Provider Department11/11/16 AGAPITO TORRES [facility] During your visit today, we recorded [...] left message, Letter sent out on11/11/16.Nick Aime RaoAllergies As of Date: 11/11/2016(No Known Allergies)Date Reviewed: [...] FOR* Right knee pain [M25.561] INVALID FOR*Letter Text[facility] Pain [id number], [address], [place] [address]Mszpnn: [phone]: [phone] 2016Dear Ms. Saima Yancey,This is a reminder letter regarding your appointment with Melissa Altman M.D. at [facility] Management Department on 10/19/16 at [...] you have previously been seen by a [facility] Pain Management provider you will need [...] your currentprescribing physician.Thank you for you cooperation,[facility] TeamEncounter Number: [id number] Status:Closed by NICK KAUR MA on 11/11/16 Normal [facility] CNOVon 11-06-2016 CNOV Office Visit (ORMIDD) -SAIMA YANCEY ([id number]) 1995 [facility] Time Provider Department11/06/16 1:20 PM [...] withsquatting here today.Imaging: Magnetic Resonance Imaging from [facility] is personallyreviewed by me and demonstrates [...] me on an as-needed basis only.Jordi Jackson, [facility] Provider: JOSE HASSAN [[id number]]Allergies As of Date: 11/06/2016(No Known Allergies)Date Reviewed: 11/06/2016Reviewed by: Ronda Acevedo - Jenn AssessedReason for Visit: Right Knee Pain [1209]Primary Visit Diagnosis:Patellofemoral stress syndrome of right knee [M22.2X1] Other Visit Diagnosis:Chronic pain of right knee [M25.561, G89.29]Order(s):CONSULT TO PAIN MGT ANESTHESIA [[id number]] Order #: [id number]: 1Prescriptions as of 11/06/2016 Sig: DICLOFENAC 20 [...] INVALID FOR*Follow-up and Disposition History RecordedEncounter Number: [id number] Status:Closed by JORDI JACKSON MD on 11/06/16 Normal [facility] PROGRESSon 11-06-2016 PROGRESS HNO ID: [id number] thor: Jordi Roervice: (none)Author Type: PhysicianType: Progress [...] squatting here today.Imaging: Magnetic Resonance Imaging from [facility] is personallyreviewed by me and demonstrates [...] me damian as-needed basis only.Jordi Jackson MD Normal [facility] CNOVon 11-01-2016 CNOV Office Visit (CONCTB) -SAIMA YANCEY ([id number]) 1995 FDate Time Provider Department11/01/16 11:15 AM JOSE HASSAN [...] MEDICAL HISTORYDiagnosis Date- NEGATIVE MEDICAL HISTORYPAST SURGICAL DYSCZOP69/2017: DANDamp;C (MISSED AB 1ST TRIMESTER)No date: NONEFAMILY [...] Status:Closed by JOSE HASSAN MD on 11/01/16 [facility] PROGRESSon 11-01-2016 PROGRESS HNO ID: [id number] thor: Jose Womackervice: (none)Author Type: PhysicianType: Progress [...] MEDICAL HISTORYDiagnosis Date- NEGATIVE MEDICAL HISTORYPAST SURGICAL VDAQWYX02/2017: DANDC (MISSED AB 1ST TRIMESTER)No date: NONEFAMILY [...] testing.Electronically Signed:Don Llanos 2016 11:54 AM Normal [facility] MRI KNEE WO IVCON RTon 10-25 MRI KNEE WO IVCON RT * * *Final Report* * *DATE OF EXAM: Oct 25 2016 7:25AM Andrew 0213 - MRI KNEE WO IVCON RT [...] internal derangement.Remote injury of the fibular collateral ligament.Embossing Press Operator Apprentice: ARASH Transcribe Date/Time: Oct 25 2016 8:41ADictated by : Blane QUINTANILLA examination was interpreted and the report reviewed and electronically signed by: CAROL ANN BERRIOS MD on Oct 26 2016 12:12AM EST Normal [facility] PROGRESSon 10-25-2016 PROGRESS HNO ID: [id number] thor: Shad Valdez Mri-TService: (none)Author Type: (none)Type: Progress NotesFiled: 10/25/2016 7:13 AMNote Text: Radiology Service Progress NotePATIENT NAME: Saima YanceyMRN: [id number] OF SERVICE: October 25, 2016TIME: 7:13 AMPATIENT IDENTITY VERIFICATION COMPLETED USING TWO (2) METHODS: Patientconfirmed name verbally and ID band matches..PATIENT GENDER DATA: Female. status: : NoBreastfeeding status: NO.PATIENT RELEVANT IMPLANT DATA REVIEWED: YesRADIOLOGY DEPARTMENT: MR; Exam(s) Completed: Lower MSK: Knee, rightPERIPHERAL IV DATA: Not applicableSIGNED BY: Shad Valdez Mri-TJune 2016 7:13 AM Normal [facility] Vital Signs Date Time Vital Sign Value Performing Clinician Facility 03-11-2024 15:51-0500 Body height 175.3 cm Kalie Plymouth PA Work Phone: [facility] 03-11-2024 15:51-0500 Body mass index (BMI) [Ratio] 34.26 kg/m2 Kalie Calvin PA Work Phone: [facility] 03-11-2024 15:51-0500 Body weight 105.23 kg Kalie Calvin PA Work Phone: [facility] 03-11-2024 15:51-0500 Diastolic blood pressure 84 mm[Hg] Kalie Calvin PA Work Phone: [facility] 03-11-2024 15:51-0500 Systolic blood pressure 128 mm[Hg] Kalie Calvin PA Work Phone: [facility] 02-04-2024 15:52-0400 Body height 175.3 cm Kalie Plymouth PA Work Phone: [facility] 02-04-2024 15:52-0400 Body mass index (BMI) [Ratio] 34.41 kg/m2 Kalie Calvin PA Work Phone: [facility] 02-04-2024 15:52-0400 Body weight 105.69 kg Kalie Calvin PA Work Phone: [facility] 02-04-2024 15:52-0400 Diastolic blood pressure 70 mm[Hg] Kalie Calvin PA Work Phone: [facility] 02-04-2024 15:52-0400 Systolic blood pressure 126 mm[Hg] Kalie Plymouth PA Work Phone: [facility] 05-20-2023 10:00-0500 Body height 171.45 cm Darci Chen Other [employer] Other 05-20-2023 10:00-0500 Body mass index (BMI) [Ratio] 40.12 kg/m2 Darci Gustavo Other [employer] Other 05-20-2023 10:00-0500 Body weight 117.94 kg Darci Gustavo Other [employer] Other 05-20-2023 10:00-0500 Diastolic blood pressure 90 mm[Hg] Darci Gustavo Other [employer] Other 05-20-2023 10:00-0500 SaO2% (BldA) [Mass fraction] 97 % Darci Gustavo Other [employer] Other 05-20-2023 10:00-0500 Systolic blood pressure 127 mm[Hg] Darci Gustavo Other [employer] Other 04-30-2023 14:30-0500 Body height 171.45 cm Amanda Samuel Other [employer] Other 04-30-2023 14:30-0500 Body mass index (BMI) [Ratio] 39.96 kg/m2 Amanda Samuel Other [employer] Other 04-30-2023 14:30-0500 Body weight 117.48 kg Amanda Samuel Other [employer] Other 04-30-2023 14:30-0500 Diastolic blood pressure 82 mm[Hg] Amanda Samuel Other [employer] Other 04-30-2023 14:30-0500 SaO2% (BldA) [Mass fraction] 99 % Amanda Becerrilraymundo Other [employer] Other 04-30-2023 14:30-0500 Systolic blood pressure 120 mm[Hg] Amanda Becerrilraymundo Other [employer] Other 12-25-2022 10:45-0400 Body height 171.45 cm Amanda Becerrilbladimirjanellmarysol Other [employer] Other 12-25-2022 10:45-0400 Body mass index (BMI) [Ratio] 42.74 kg/m2 Amanda Becerrilbladimirjanellmarysol Other [employer] Other 12-25-2022 10:45-0400 Body weight 125.65 kg Amanda Becerrilraymundo Other [employer] Other 12-25-2022 10:45-0400 Diastolic blood pressure 84 mm[Hg] Amanda Becerrilbladimirjanellmarysol Other [employer] Other 12-25-2022 10:45-0400 Systolic blood pressure 120 mm[Hg] Amanda Jimmie Other [employer] Other 10-11-2021 10:45-0400 Body height 171.45 cm Nick Olexa Other [employer] Other 10-11-2021 10:45-0400 Body mass index (BMI) [Ratio] 38.73 kg/m2 Nick Olexa Other [employer] Other 10-11-2021 10:45-0400 Body weight 113.85 kg Nick Olexa Other [employer] Other Encounters Encounter Date Encounter Type Care Provider Facility Start: 03-12-2024 End: 03-12-2024 ambulatory Kalie FELIX Facility:[facility] Start: 03-11-2024 End: 03-11-2024 ambulatory KALIE CALVIN Not Available Start: 03-11-2024 End: 03-11-2024 Office outpatient visit 15 minutes Kalie FELIX Work Phone: [facility] Comment on above: Well adult exam; Pelvic pain in female; Encounter for weight management Start: 03-11-2024 End: 03-11-2024 Patient encounter status Kalie FELIX Work Phone: [facility] Start: 02-13-2024 End: 02-13-2024 ambulatory Emilianoprakash Weston Facility:[facility] Start: 02-04-2024 End: 02-04-2024 Office outpatient visit 15 minutes Kalie FELIX Work Phone: [facility] Comment on above: Encounter for weight management; Weight gain Start: 02-04-2024 End: 02-04-2024 ambulatory KALIE CALVIN Not Available Start: 02-04-2024 End: 02-04-2024 Bamboo flowsheet Kalie FELIX Work Phone: [facility] Start: 02-04-2024 End: 02-04-2024 Bamboo flowsheet Kalie FELIX Work Phone: [facility] Start: 12-09-2023 End: 12-09-2023 ambulatory JASMEET SHARON Not Available Start: 08-27-2023 End: 08-27-2023 ambulatory KALIE CALVIN Not Available Start: 07-31-2023 End: 07-31-2023 ambulatory KALIE CALVIN Not Available Start: 07-03-2023 End: 07-03-2023 ambulatory KALIE CALVIN Not Available Start: 06-03-2023 End: 06-03-2023 ambulatory KALIE CALVIN Not Available Start: 06-02-2023 End: 06-02-2023 ambulatory ROCHELLE Samuel Work Phone: [facility] Work Phone: Start: 06-02-2023 End: 06-02-2023 Patient encounter procedure POULTRY HUSBANDMANBill SueAmanda Jimmie Work Phone: [facility] Work Phone: Start: 05-27-2023 End: 05-27-2023 Patient encounter procedure POULTRY HUSBANDMANBill LoydAmanda Jimmie Work Phone: [facility] [place] Work Phone: Start: 05-27-2023 End: 05-27-2023 ambulatory POULTRY HUSBANDMANBill Samuel Work Phone: [facility] Work Phone: Start: 05-20-2023 Office outpatient vi sit 40 minutes Darci [facility] Start: 05-20-2023 End: 05-20-2023 Patient encounter procedure POULTRY HUSBANDMANBill Samuel Work Phone: [facility] Work Phone: Start: 05-20-2023 End: 05-20-2023 ambulatory POULTRY HUSBANDMANBill Samuel Work Phone: [employer] Other Start: 05-05-2023 End: 05-05-2023 ambulatory ROCHELLE Samuel Work Phone: [facility] Work Phone: Start: 05-05-2023 End: 05-05-2023 Patient encounter procedure POULTRY HUSBANDMANBill Samuel Work Phone: [facility] Work Phone: Start: 05-05-2023 End: 05-05-2023 ambulatory KALIE SIMPSON Not Available Start: 04-30-2023 End: 04-30-2023 ambulatory Amanda Samuel Other [employer] Other Start: 04-30-2023 Office outpatient vi sit 15 minutes Amanda Samuel [facility] Start: 04-30-2023 End: 04-30-2023 Patient encounter procedure POULTRY HUSBANDMANBill Samuel Work Phone: [facility] Work Phone: Start: 04-26-2023 End: 04-26-2023 Emergency department patient visit Anthony Rios Facility:[facility] Start: 04-01-2023 End: 04-01-2023 ambulatory KALIE SIMPSON Not Available Start: 03-17-2023 End: 03-17-2023 Patient encounter procedure ROCHELLE Samuel Work Phone: [facility] Work Phone: Start: 12-25-2022 End: 12-25-2022 ambulatory Amanda Samuel Other [employer] Other Start: 12-25-2022 Office outpatient vi sit 15 minutes Amanda Samuel [facility] Start: 07-15-2022 End: 07-16-[address] JASMEET HUBBARD . Facility:[facility] Start: 06-12-2022 End: 06-12-2022 ambulatory Amanda Samuel Other [employer] Other Start: 06-12-2022 Encounter by jose Samuel [facility] Start: 06-05-2022 End: 06-06-[address] JASMEET HUBBARD . Facility:[facility] Start: 05-06-2022 End: 05-07-[address] JASMEET HUBBARD . Facility:[facility] Start: 03-08-2022 End: 03-09-[address] JASMEET HUBBARD . Facility:[facility] Start: 01-25-2022 End: 01-25-2022 ambulatory Nick Ng Other [employer] Other Start: 01-25-2022 Telephone encounter Nick Olexa [facility] Start: 01-24-2022 End: 01-24-2022 ambulatory POULTRY HUSBANDMANBill Samuel Work Phone: [facility] Work Phone: Start: 01-24-2022 End: 01-24-2022 Patient encounter procedure POULTRY HUSBANDMANBill Samuel Work Phone: [facility] [place] Start: 01-16-2022 End: 01-16-2022 ambulatory Amanda Mueller Other [employer] Other Start: 01-16-2022 Office outpatient vi sit 15 minutes Amanda Mueller [facility] Start: 01-03-2022 End: 01-04-[address] JASMEET HUBBARD . Facility: Start: 12-06-2021 End: 12-06-2021 ambulatory Nick Olexa Other [employer] Other Start: 12-06-2021 Postop follow up vis it related to original px Nick Olexa [facility] Start: 12-06-2021 End: 12-06-2021 Patient encounter procedure POULTRY HUSBANDMANBill Samuel Work Phone: [facility] [facility] Start: 11-22-2021 End: 11-22-2021 ambulatory Nick Olexa Other [employer] Other Start: 11-22-2021 Telephone encounter Nick Olexa [facility] Start: 11-13-2021 End: 11-13-2021 ambulatory Nick Olexa Other [employer] Other Start: 11-13-2021 Telephone encounter Nick Olexa [facility] Start: 11-08-2021 End: 11-08-2021 Patient encounter procedure POULTRY HUSBANDMAN Amanda Samuel Work Phone: [facility] Start: 10-11-2021 (Post-Op) Post-Op Nick Ng [facility] Start: 10-11-2021 End: 10-11-2021 ambulatory Nick Ng Other [employer] Other Start: 10-01-2021 End: 10-01-2021 ambulatory Amanda Samuel Other [employer] Other Start: 10-01-2021 Telephone encounter Amanda Garber her [facility] Start: 09-28-2021 End: 09-28-2021 ambulatory Amanda Samuel Other [employer] Other Start: 09-28-2021 Telephone encounter Amanda Garber her [facility] Start: 09-27-2021 End: 09-27-2021 ambulatory Nick Olebe Other [employer] Other Start: 09-27-2021 Office outpatient ne w 45 minutes Nick Ng [facility] Start: 09-27-2021 Telephone encounter Amanda Mueller [facility] Start: 09-14-2021 End: 09-14-[address] JASMEET HUBBARD . Facility:[facility] Start: 09-14-2021 Encounter for preprocedural laboratory examination DR JASMEET HUBBARD . [facility] Start: 09-11-2021 End: 09-12-[address] JASMEET HUBBARD . Facility:[facility] Start: 09-11-2021 End: 09-12-2021 Encounter for preprocedural laboratory examination DR JASMEET HUBBARD . Facility:[facility] Start: 09-05-2021 Encounter for other preprocedural examination DR JASMEET HUBBARD . [facility] Start: 09-03-2021 End: 09-04-[address] JASMEET HUBBARD . Facility: Start: 09-03-2021 End: 09-04-2021 Encounter for other preprocedural examination DR JASMEET HUBBARD . Facility: Start: 08-20-2021 End: 08-20-[address] JASMEET HUBBARD . Facility: Start: 04-11-2017 End: 04-14-2017 Ambulatory JOSE HASSAN [facility] Start: 03-29-2017 End: 03-31-2017 [facility] Start: 01-14-2017 End: 01-14-2017 Ambulatory JAMES JONES [facility] Start: 12-11-2016 [facility] Start: 11-18-2016 End: 12-16-2016 Ambulatory AGAPITO VALLEJOMALAK [facility] Start: 11-06-2016 End: 11-06-2016 Ambulatory JORDI JACKSON [facility] Start: 11-01-2016 End: 11-01-2016 Ambulatory JOSE HASSAN [facility] Start: 10-25-2016 End: 10-25-2016 Ambulatory JOSE Ram [facility] Procedures Date Procedure Procedure Detail Performing Clinician Start: 05-27-2023 MRI of head POULTRY HUSBANDMAN Rach jenna Samuel Work Phone: Start: 01-24-2022 MRI of right knee POULTRY HUSBANDMAN Amanda Jimmie Work Phone: Start: 12-06-2021 X-ray of right knee APR N Amanda Jimmie Work Phone: Start: 11-08-2021 X-ray of right knee APR N Amanda Jimmie Work Phone: Plan of Treatment Date Care Activity Detail Author Start: 12-20-2024 End: 12-20-2024 Patient encounter procedure 12/20/2024 4:00 PM EDT Office Visit [facility] [address] [place] [id number] Jasmeet Hubbard, DO [address] [place] [address] [facility] Start: 05-03-2024 End: 05-03-2024 Patient encounter procedure 05/03/2024 8:00 AM EST Office Visit [facility] [address] [place] [address] Jasmeet Hubbard DO [address] [place] [address] [facility] Start: 04-07-2024 End: 04-07-2024 Patient encounter procedure 04/07/2024 3:40 PM EST Office Visit [facility] [address] [place] [address] Kalie Simpson, PA [address] [place] [address] [facility] Start: 04-05-2024 End: 04-05-2024 Patient encounter procedure 04/05/2024 3:30 PM EST Office Visit [facility] [address] [place] [address] Kalie Simpson, PA [address] [place] [address] [facility] Start: 03-11-2024 End: 03-11-2025 Lipid 1996 panel - Serum or Plasma Lipid panel Lab Routine Well adult exam Expected: 03/11/2024 (Approximate), Expires: 03/11/2025 [facility] Healthcare Comment on above: Expected: 03/11/2024 (Approximate), Expires: 03/11/2025 Start: 03-11-2024 End: 03-11-2025 US for US PELVIS-TRANSVAG IF INDICATED Imaging Routine Pelvic pain in female Expected: 03/11/2024 (Approximate), Expires: 03/11/2025 [facility] Healthcare Comment on above: Expected: 03/11/2024 (Approximate), Expires: 03/11/2025 Start: 03-08-2024 End: 03-08-2024 Patient encounter procedure 03/08/2024 8:00 AM EST Office Visit [facility] [address] [place] [address] Jasmeet Hubbard DO [address] [place], [place] [id number] [facility] Start: 02-04-2024 End: 02-04-2024 Patient encounter procedure 02/04/2024 3:50 PM EDT [facility] [address] [place] [address] Kalie Simpson, PA [address] [place], [place] [id number] Arrived [facility] Comment on above: Arrived Start: 12-28-2023 Influenza vaccination Influenza Vacc ine (#1) [facility] Start: 05-27-2023 MR Unspecified body region [facility] Start: 05-27-2023 MRI of head MR head/brain wo/w con [facility] CBC W Auto Different ial panel - Blood CBC and differential Lab Routine Well adult exam Ordered: 03/11/2024 [facility] Comment on above: Ordered: 03/11/2024 Comprehensive metabo lic 2000 panel - Serum or Plasma Comprehensive metabolic panel Lab Routine Well adult exam Ordered: 03/11/2024 [facility] Comment on above: Ordered: 03/11/2024 Hemoglobin A1c/Hemoglobin.total in Blood Hemoglobin A1c Lab Routine Well adult exam Ordered: 03/11/2024 [facility] Comment on above: Ordered: 03/11/2024 Thyrotropin [Units/volume] in Serum or Plasma TSH Lab Routine Well adult exam Ordered: 03/11/2024 [facility] Work Phone: Comment on above: Ordered: 03/11/2024 Immunizations Immunization Date Immunization Notes Care Provider Fa cilielise 01-28-2020 influenza, injectabl e, quadrivalent, contains preservative Amanda Samuel Other [employer] Other 01-28-2020 influenza virus vaccine, unspecified formulation Kalie FELIX Work Phone: [facility] 08-16-2016 diphtheria, tetanus toxoids and acellular pertussis vaccine Amanda Samuel Other [employer] Other 02-27-2010 influenza virus vaccine, split virus (incl. purified surface antigen) Amanda Samuel Other [employer] Other 11-09-2008 human papilloma viru s vaccine, quadrivalent Amanda Lorettaacher Other [employer] Other 07-05-2008 human papilloma viru s vaccine, quadrivalent Amanda Lorettaacher Other [employer] Other 05-10-2008 human papilloma viru s vaccine, quadrivalent Amanad Lorettaacher Other [employer] Other 04-12-2008 diphtheria, tetanus toxoids and acellular pertussis vaccine Amanda Samuel Other [employer] Other 04-12-2008 meningococcal polysaccharide (groups A, C, Y and W-135) diphtheria toxoid conjugate vaccine (MCV4P) Amanda Samuel Other [employer] Other 04-12-2008 varicella virus vaccine Carmen Samuel Other [employer] Other 12-07-2001 diphtheria, tetanus toxoids and acellular pertussis vaccine Amanda Samuel Other [employer] Other 12-07-2001 poliovirus vaccine, inactivated Amanda Samuel Other [employer] Other 04-16-2000 measles, mumps and rubella virus vaccine Amanda Jimmie Other [employer] Other 07-14-1998 diphtheria, tetanus toxoids and acellular pertussis vaccine Amanda Jimmie Other [employer] Other 07-14-1998 haemophilus influenz ae type b vaccine, PRP-OMP conjugate Amanda Jimmie Other [employer] Other 04-13-1998 measles, mumps and rubella virus vaccine Amanda Jimmie Other [employer] Other 04-13-1998 varicella virus vaccine Carmen Samuel Other [employer] Other 1997 diphtheria, tetanus toxoids and acellular pertussis vaccine Amanda Jimmie Other [employer] Other 1997 haemophilus influenz ae type b vaccine, PRP-OMP conjugate Amanda Jimmie Other [employer] Other 1997 hepatitis B vaccine, pediatric or pediatric/adolescent dosage Amanda Samuel Other [employer] Other 1997 poliovirus vaccine, inactivated Amanda Samuel Other [employer] Other 1997 diphtheria, tetanus toxoids and acellular pertussis vaccine Amanda Jimmie Other [employer] Other 1997 haemophilus influenz ae type b vaccine, PRP-OMP conjugate Amanda Becerrilrbacher Other [employer] Other 1997 poliovirus vaccine, inactivated Amanda Rohrbacher Other [employer] Other 1997 diphtheria, tetanus toxoids and acellular pertussis vaccine Amanda Rohrbacher Other [employer] Other 1997 haemophilus influenz ae type b vaccine, PRP-OMP conjugate Amanda Becerrilrbacher Other [employer] Other 1997 hepatitis B vaccine, pediatric or pediatric/adolescent dosage Amanda Rohrbacher Other [employer] Other 1997 poliovirus vaccine, inactivated Amanda Rohrbacher Other [employer] Other 1997 hepatitis B vaccine, pediatric or pediatric/adolescent dosage Amanda Rohrbacher Other [employer] Other Payers Date Payer Category Payer Unknown 2024 Private Health Insurance [employer] [id number] 2024 Unknown [id number] 2023 Private Health Insurance [facility] [id number] 2023 Self-pay [id number] 2022 Medicaid [id number] 1997 Unknown [id number] 2.16.840.1.269082.3.579.2. 593 1997 Unknown [id number] 2.16.840.1.013298.3.579.2. 593 1997 Unknown [id number] 2.16.840.1.140330.3.579.2. 593 1997 Unknown [id number] 2.16.840.1.771753.3.579.2. 593 1997 Unknown [id number] 2.16.840.1.927602.3.579.2. 593 1997 Unknown [id number] 2.16.840.1.575617.3.579.2. 593 1997 Unknown [id number] 2.16.840.1.519724.3.579.2. 593 1997 Unknown [id number] 2.16.840.1.102266.3.579.2. 593 1997 Unknown [id number] 2.16.840.1.966378.3.579.2. 593 1997 Unknown [id number] 2.16.840.1.677447.3.579.2. 1259 1997 Unknown [id number] 2.16.840.1.430173.3.579.2. 1259 1997 Unknown [id number] 2.16.840.1.236810.3.579.2. 1259 1997 Unknown [id number] 2.16.840.1.746332.3.579.2. 1259 1997 Unknown [id number] 2.16.840.1.474774.3.579.2. 1259 1997 Unknown [id number] 2.16.840.1.223439.3.579.2. 1259 1997 Unknown [id number] 2.16.840.1.719524.3.579.2. 1259 1997 Unknown [id number] 2.16.840.1.689584.3.579.2. 1259 1997 Unknown [id number] 2.16.840.1.177293.3.579.2. 1259 1997 Unknown [id number] 2.16.840.1.306148.3.579.2. 718 1997 Unknown [id number] 2.16.840.1.399226.3.579.2. 718 1959 [employer] Cross Blue Shield [id number] 2.16.840.1.369669.19 1959 Unknown [id number] 2.16.840.1.979085.19 Unknown [id number] 2.16.840.1.567741.3.579.2. 531 Unknown [id number] 2.16.840.1.108054.3.579.2. 531 Unknown [id number] 2.16.840.1.511891.3.579.2. 531 Unknown [id number] 2.16.840.1.446252.3.579.2. 531 Social History Date Type Detail Facility Unknown if ever smoked [employer] Other Start: 02-26-2023 End: 02-04-2024 Sex Assigned At [employer] Other Start: 1995 Sex Assigned At Female F [facility] Start: 11-12-2022 End: 02-04-2024 Tobacco smoking status ARIS Never smoked tobacco [facility] Start: 02-04-2024 Tobacco use and exposure Smokeless tobacco non-user [facility] Start: 01-08-2024 End: 02-04-2024 Alcoholic beverage intake Lifetime non-drinker (finding) [facility] Start: 02-26-2023 End: 02-04-2024 History of Social function [facility] Start: 11-06-2022 Gender identity Identifies as female gender (finding) [facility] Clinical Notes 08-26-2021 to 03-11-2024 ISIDRO Jeff - 03/11/2024 3:40 PM ISIDRO [place] - 02/04/2024 3:50 PM EDT Note Date & Type Note Facility 03-11-2024 History of Presen t illness Narrative Reason for Appointment: Patient ID: Saima Yancey is a 28 y.o. female who presents for No chief complaint on file. Patient presents today for Weight Management Consult. MEDICATIONS Current Outpatient Medications Medication Instructions citalopram (CELEXA) 20 mg, Oral, Daily metFORMIN XR (GLUCOPHAGE-XR) 500 mg, Oral, Daily with evening meal, Do not crush, chew, or split. phentermine (ADIPEX-P) 37.5 mg, Oral, Daily before breakfast phentermine (ADIPEX-P) 37.5 mg, Oral, Daily before breakfast phentermine (ADIPEX-P) 37.5 mg, Oral, Daily before breakfast ALLERGIES No Known Allergies PROBLEMS Active Ambulatory Problems Diagnosis Date Noted Anovular menstruation 01/27/2023 Anovulation 01/27/2023 Muscle weakness 09/09/2016 Missed period 01/27/2023 Missed 07/09/2016 Decreased ROM of lower extremity 09/09/2016 Cough 01/27/2023 Confirm cardiac activity using ultrasound 07/08/2016 Patellofemoral stress syndrome of right knee 02/21/2016 Right knee pain 09/09/2016 Viral illness 01/27/2023 Resolved Ambulatory Problems Diagnosis Date Noted No Resolved Ambulatory Problems Past Medical History: Diagnosis Date Allergies Chlamydia Endometriosis Female infertility Gonorrhea Ovarian cyst Polycystic ovary syndrome Post depression (CMS/HCC) HISTORY PAST MEDICAL HISTORY SOCIAL HISTORY Past Medical History: Diagnosis Date Allergies Chlamydia Endometriosis Female infertility Gonorrhea Ovarian cyst Polycystic ovary syndrome Post depression (CMS/HCC) Social History Tobacco Use Smoking status: Never Smokeless tobacco: Never Substance Use Topics Alcohol use: Never Drug use: Never FAMILY HISTORY Family History Problem Relation Name Age of Onset No Known Problems Sister No Known Problems Brother No Known Problems Daughter Breast cancer Maternal Grandmother Grandmother Ovarian cancer Maternal Grandmother Grandmother SURGICAL HISTORY Past Surgical History: Procedure Laterality Date ADENOIDECTOMY 2007 SECTION, LOW TRANSVERSE 2019 TONSILLECTOMY 2007 REVIEW OF SYSTEMS Review of Systems: Review of Systems All other systems reviewed and are negative. OBJECTIVE Objective: Physical Exam Constitutional: Appearance: Normal appearance. She is well-developed. Cardiovascular: Rate and Rhythm: Normal rate and regular rhythm. Pulmonary: Effort: Pulmonary effort is normal. Breath sounds: Normal breath sounds. Abdominal: General: Bowel sounds are normal. There is no distension. Palpations: Abdomen is soft. Tenderness: There is no abdominal tenderness. There is no guarding or rebound. Musculoskeletal: General: No swelling. Normal range of motion. Right lower leg: No edema. Left lower leg: No edema. Neurological: Mental Status: She is alert and oriented to person, place, and time. Skin: General: Skin is warm and dry. Psychiatric: Mood and Affect: Mood normal. Behavior: Behavior normal. Vitals and nursing note reviewed. Exam conducted with a plaster tender present. Vitals: Estimated body mass index is 34.41 kg/m as calculated from the following: Height as of 02/04/24: 5' 9 . Weight as of 02/04/24: 233 lb. BP: No LMP recorded. ASSESSMENT & PLAN Patient presents today for 3rd Adipex prescription. Patient desires additional weigh loss and she is currently taking metformin along with working out to achieve further results. The possibility of Ozempic for future use has been discussed. Weight and blood pressure has been captured and it has been discussed/reiterated the importance of keeping a food journal, proper nutrition/diet, and exercise regimen. Patient verbalized understanding. Patient to return to clinic in 4 weeks for Weight Management, discuss pelvic pain and painful intercourse after Doxycycline. Follow Up: Follow up for weight management in 4 weeks, pelvic pain and painful intercourse. Documented by Lenore Blackwell LPN on behalf of: ISIDRO Jeff documented in this encounter [facility] 02-04-2024 History of Presen t illness Narrative Reason for Appointment: Patient ID: Saima Yancey is a 28 y.o. female who presents for Weight Management Patient presents today for a weight management consultation. Patient has been prescribed Adipex and she is here for her 3rd prescription. Today's Vitals: Estimated body mass index is 35.62 kg/m as calculated from the following: Height as of 12/09/23: 5' 9 . Weight as of 01/08/24: 241 lb 3.2 oz. Previous Weight/BMI: Wt Readings from Last 2 Encounters: 01/08/24 241 lb 3.2 oz 12/09/23 248 lb BMI Readings from Last 2 Encounters: 01/08/24 35.62 kg/m 12/09/23 36.62 kg/m Allergies as of 02/04/2024 (No Known Allergies) Past Medical History: Diagnosis Date Allergies Post depression (CMS/FORMERLY [facility]) Past Surgical History: Procedure Laterality Date ADENOIDECTOMY 2006 SECTION, LOW TRANSVERSE 2019 TONSILLECTOMY 2006 Assessment/Plan No diagnosis found. Adipex: Patient presents today for 3rd Adipex prescription. Patients weight and blood pressure has been captured and discussed with the patient. I have discussed/reiterated the importance of keeping a food journal, proper nutrition/diet, and exercise regimen while taking Adipex. Patient verbalized understanding and was given a printed prescription signed by provider to take to their local pharmacy. Follow Up: Patient is to return to the office in 1 month for further evaluation to assess patient progress. Weight and blood pressure will need to be obtained in order for patient to receive 3rd prescription. Documented by: Elena Smith on behalf of ISIDRO Jeff documented in this encounter [facility] 05-20-2023 Evaluation note Encounter Date Diagnosis Assessment [...] changes in symptoms and/or problems with treatment [employer] Other 01-03-2024 Evaluation note* Encounter Date Diagnosis [...] Family history of migraine (ICD-10 - Z82.0) [employer] Other 12-30-2023 NoteEducation Materials Neurology Migraine Headache [...] these instructions at home: Medicines ? Take zryc-[id number]-[id number] and prescription medicines only as told by your health care provider. ? Ask your health care provider if the medicine prescribed to you: ? Requires you to avoid driving or using heavy machinery. ? Can cause constipation. You may need to take these actions to prevent or treat constipation: ? Drink enough fluid to keep your urine pale yellow. ? Take rrwg-aag-[id number] or prescription medicines. ? Eat foods that [...] ? You develop symptoms (more content not included)...[id number] Encounter Date Diagnosis Assessment Notes Treatment Notes Treatment Clinical Notes Nov, Bronchitis (ICD-10 - J40) Discussed diagnosis with patient. Patient to start Zithromax. Patient to take Zithromax daily with food as prescribed. Finish entire course of antibiotic. Tessalon Pearles ordered to take as needed for cough. Increase fluids and rest. Vdsj-ypc-fykbcrt antipyretics as needed. Warning signs and symptoms reviewed with patient today. Patient to go immediately to the ER should she experience any of these. Patient to notify office should her symptoms persist and not improve. Patient verbalizes understanding and agrees to treatment plan. [employer] Other 09-21-2022 Evaluation note* Encounter Date Diagnosis [...] of pain and plan potential surgical treatment. [employer] Other 08-11-2022 Evaluation note* Encounter Date Diagnosis [...] one with metal stays. Call with questions/concerns. [employer] Other 06-16-2022 Evaluation note* Encounter Date Diagnosis [...] to continue off work at this time. [employer] Other 06-02-2022 Evaluation note* Encounter Date Diagnosis [...] discussed that this injury can lead to shelter pain and development of arthritic change. Discussed potential to consult with Dr Victoria depending on CT results. We were able to evaluate the CT scan later this afternoon. There is a anterior tibial spine fracture with minimal displacement. I will be recommending nonoperative treatment and nonweightbearing at this time. We will allow gentle range of motion in a brace. 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 PREOPERATIVE DIAGNOSIS: Pelvic pain. POSTOPERATIVE DIAGNOSIS: Pelvic pain. ANESTHESIA: General. SURGEON: Jasmeet Hubbard M.D. OUTSIDE PROPERTY AGENT: Atiya Luis, MASTER CERTIFIED RV TECHNICIAN URINE OUTPUT: Yellow and clear. BLOOD LOSS: [...] Hubbard DO on 09/17/2021 07:39 AM EDT [facility] Signed and Approved by: DR JASMEET HUBBARD . 09/17/2021 07:39:00[facility]05-01-2022 History general Narrative - Reported* Type Description Date Medical History Headaches Medical History Concussion, without loss of consciousness, initial encounter Surgical History tonsillectomy Surgical History D&C Surgical History laparoscopy 08/2021 Surgical History C section 12/2018 Hospitalization History Dehydration 2001 Hospitalization History Miscarriage D&C [employer] Other Evaluation noteNo InformationNort [employer] Other Evaluation noteNo assessment information available [facility] Work Phone: Evaluation note* Diagnosis Encounter for weight management Weight gain Other symptoms concerning nutrition, metabolism, and development [facility] Diagnosis Well adult exam Routine general medical examination at a health care facility Pelvic pain in female Unspecified symptom associated with female genital organs Encounter for weight management documented in this encounter [facility] Narrative - Reported* Type Description Date Medical History Headaches Medical History Concussion, without loss of consciousness, initial encounter Medical History PCOS Medical History Endometrosis Surgical History tonsillectomy Surgical History D&C Surgical History laparoscopy 08/2021 Surgical History C section 12/2018 Hospitalization History Dehydration 2001 Hospitalization History Miscarriage D&C [facility] [employer] Other Summary Purpose Family History No Family History Records FoundNo Family History Records FoundNo Family History Records FoundNo Family History Records FoundNo Family History Records FoundNo Family History Records Found Advance Directives Advance Directive Response Recorded Date/ Time Advance [...] section and content) DATE CREATED AUTHOR 10/21/2017 [facility] DATE CREATED AUTHOR AUTHOR'S ORGANIZ ATION 10/22/2017 [facility] DATE CREATED AUTHOR AUTHOR'S ORGANIZ ATION 08/06/2022 [facility] DATE CREATED AUTHOR AUTHOR'S ORGANIZ ATION 01/17/2024 [facility] DATE CREATED AUTHOR AUTHOR'S ORGANIZ ATION 03/14/2024 [facility] EPIC DATE CREATED AUTHOR AUTHOR'S ORGANIZ ATION 03/14/2024 [facility] REASON FOR VISIT (unrecogniz ed section and content) Reason Comments Weight Management Care Teams (unrecognized sec tion and content) Team Status: Inactive Member Role Status Dates Amanda Samuel APRN ANODIC OPERATOR-C Primary Care Provider Active Amanda Mueller NP-C Attending Provider Active Team Status: Inactive Member Role Status Dates Amanda Samuel APRN ANODIC OPERATOR-C Primary Care Provider Active Nick Ng MD Attending Provider Active Team Status: Active Member Role Status Dates Amanda Samuel APRN ANODIC OPERATOR-C Primary Care Provider Active Team Status: Inactive Member Role Status Dates Darci Chen MD Attending Provider Active Amanda Saumel APRN ANODIC OPERATOR-C Primary Care Provider Active Team Status: Inactive Member Role Status Dates Amanda Samuel APRN ANODIC OPERATOR-C Attending Provider Act gilberto Start: March 17, 2023 End: March 17, 2023 Team Status: Inactive Member Role Status Dates Amanda Samuel APRN ANODIC OPERATOR-C Attending Provider Act gilberto Start: April 30, 2023 End: April 30, 2023 Team Status: Inactive Member Role Status Dates Darci Chen MD Attending Provider Active S tart: May 05, 2023 End: May 05, 2023 Amanda Samuel APRN ANODIC OPERATOR-C Primary Care Provider Active Start: May 05, 2023 End: May 05, 2023 Team Status: Inactive Member Role Status Dates Darci Chen MD Attending Provider Active S tart: May 20, 2023 End: May 20, 2023 Amanda Samuel APRN ANODIC OPERATOR-C Primary Care Provider Active Start: April End: May 20, 2023 Team Status: Inactive Member Role Status Dates Amanda Samuel APRN ANODIC OPERATOR-C Primary Care Provider, Attending Provider Active Start: May 27, 2023 End: May 27, 2023 Team Status: Inactive Member Role Status Dates Amanda Samuel APRN ANODIC OPERATOR-C Primary Care Provider Active Start: May End: June 02, 2023 Darci Chen MD Attending Provider Active S tart: June 02, 2023 End: June 02, 2023 Lbd Teacher Relationship Specialty Start Date End Date Amanda Samuel NP [address] [place] [address] PCP - General Family Medicine 11/13/22 Lbd Teacher Relationship Specialty Start Date End Date Amanda Samuel NP [address] [place] [address] PCP - General Family Medicine 11/13/22 Lbd Teacher Relationship Specialty Start Date End Date Amanda Samuel NP [address] [place] [address] PCP - General Family Medicine 11/13/22 Goals (unrecognized section and content) Goals may [...] BE BASED ON THE PRIMARY CLINICAL RECORDS. [facility]. provides no warranty or guarantee of the accuracy or completeness of information in this document.
--- NOTE | 2024-03-17 19:11 | US_ITS ---
[address] [address] Patient Name: GERTRUDE MANDEL MRN: [id number] date: 1995 Sex: F Assigned Patient Location: Current Patient Location: Accession/Order Number: [id number] Exam Date: 03/17/2024 19:29 Report Date: 03/19/2024 05:28 At the request of: RYAN PARSON Procedure: US pelvis w/ transvaginal EXAMINATION: US pelvis w/ transvaginal HISTORY: PELVIC PAIN IN FEMALE R10.2 COMPARISON: Ultrasound pelvis transvaginal 07/07/2023 TECHNIQUE: Transabdominal and/or transvaginal sonographic examination was performed as indicated by examination type. FINDINGS: UTERUS: Normal size and appearance. Uterus size: 9.2 x 5.3 x 5.8 cm ENDOMETRIUM: Normal homogeneous appearance. Endometrial thickness: 6 mm RIGHT OVARY: Normal size and appearance. Duplex Doppler demonstrates normal waveform and flow; resistive index 0.5. Ovary size: 4.0 x 1.9 x 2.5 cm LEFT OVARY: Normal size and appearance. Duplex Doppler demonstrates normal waveform and flow; resistive index 0.6. Ovary size: 3.7 x 1.6 x 2.5 cm CUL-DE-SAC: Unremarkable. No significant free fluid. BLADDER: Unremarkable. OTHER: None. US/US pelvis w/ transvaginal IMPRESSION: 1. Normal pelvic ultrasound. Electronically authenticated by: MARCELLA HERNADEZ Date: 03/19/2024 05:28
== END 2024-03-17 19:03 | disposition home or self-care (01) ==
PROVIDERS: PCP Nurse Practitioner Family; Visit Provider Physician Assistant
DX: R10.2 Pelvic and perineal pain (principal)
CPT/HCPCS: 76830; 76856

== ENCOUNTER 2024-04-29 22:44 | Emergency (ER) | payer OTHER, SELFPAY ==
--- OUTSIDE RECORDS SUMMARY | 2024-04-29 22:50 | XMS_ITS | CCD ---
Author Organization [facility] Care Team Providers Care Cement Finisher Apprentice Name Role Phone FIGALISTAIR, JOSE A Unavailable Unavailable FIGLER, JOSE A Unavailable Unavailable FARROW, LUTUL D Unavailable Unavailable FIGLER, JOSE A Unavailable Unavailable MELISSA, AGAPITO Unavailable Unavailable FARROW, LUTUL D Unavailable Unavailable JAMES JONES (PHILLIP) Unavailable Unavail able MELISSA, AGAPITO Unavailable Unavailable MELISSA, AGAPITO Unavailable Unavailable MELISSA, AGAPITO Unavailable Unavailable Ncik Ng Unavailable Amanda Mueller Unavailable Amanda Samuel Unavailable ROCHELLE Samuel Primary Care Provider MD Nick Ng Attending Provider [phone] ELYSE Mueller Attending Provider [phone] HAYDEE ., DR STALEY Admitting Unavailable HAYDEE ., DR STALEY Attending Unavailable REQUEST, NONE LISTED Primary Care Unavaila ble HAYDEE ., DR STALEY Consulting Unavailable HAYDEE ., DR STALEY Admitting Unavailable HAYDEE ., DR STALEY Attending Unavailable REQUEST, NONE LISTED Primary Care Unavaila ble HAYDEE ., DR STALEY Consulting Unavailable HAYDEE ., DR STALEY Admitting Unavailable HAYDEE ., DR STALEY Attending Unavailable REQUEST, NONE LISTED Primary Care Unavaila ble HAYDEE ., DR STALEY Consulting Unavailable HAYDEE ., DR STALEY Admitting Unavailable HAYDEE ., DR STALEY Attending Unavailable REQUEST, NONE LISTED Primary Care Unavaila ble HAYDEE ., DR STALEY Admitting Unavailable HAYDEE ., DR STALEY Attending Unavailable REQUEST, DR NONE LISTED Primary Care Unavaila ble HAYDEE ., DR STALEY Consulting Unavailable HAYDEE ., DR STALEY Admitting Unavailable HAYDEE ., DR STALEY Attending Unavailable REQUEST, DR NONE LISTED Primary Care Unavaila ble HAYDEE ., DR STALEY Consulting Unavailable AGUBOSIM, NIMESH Consulting Unavailable LONGEDVIN Consulting Unavailable HAYDEE ., DR STALEY Admitting Unavailable HAYDEE ., DR STALEY Attending Unavailable REQUEST, DR NONE LISTED Primary Care Unavaila ble HAYDEE ., DR STALEY Consulting Unavailable HAYDEE ., DR STALEY Admitting Unavailable HAYDEE ., DR STALEY Attending Unavailable REQUEST, DR NONE LISTED Primary Care Unavaila ble HAYDEE ., DR STALEY Consulting Unavailable HAYDEE ., DR STALEY Admitting Unavailable HAYDEE ., DR STALEY Attending Unavailable REQUEST, DR NONE LISTED Primary Care Unavaila ble HAYDEE ., DR STALEY Consulting Unavailable MD Darci Chen Attending Provider [phone] Rohrbacher, PIT TANNER Amanda Primary Care Provider MD Darci Chen Attending Provider Darci Chen Unavailable Rohrbacher, PIT TANNER Amanda Attending Provider Rohrbacher, Amanda Admitting Unavailable Rohrbacher, Amanda Attending Unavailable Rohrbacher, Amanda Primary Care Unavailable Darci Chen Admitting Unavailable Darci Chen Attending Unavailable Rohrbacher, Amanda Primary Care Unavailable Darci Chen Admitting Unavailable Darci Chen Attending Unavailable Rohrbacher, Amanda Primary Care Unavailable Darci Chen Admitting Unavailable Darci Chen Attending Unavailable Rohrbacher, Amanda Primary Care Unavailable Rohrbacher ELECTRONEURODIAGNOSTIC TECHNICIAN, Amanda A Primary Care Provider Unavailable Rohrbacher ELECTRONEURODIAGNOSTIC TECHNICIAN, Amanda A Primary Care Provider Rohrbacher, Amanda Admitting Unavailable Rohrbacher, Amanda Attending Unavailable Rohrbacher, Amanda Primary Care Unavailable Rohrbacher, Amanda Primary Care Unavailable Emiliano Weston Attending Unavailable Emiliano Weston Admitting Unavailable Rohrbacher, Amanda Primary Care Unavailable Jaylen Jiagn Attending Unavailable Jaylen Jiang Admitting Unavailable Kalie Diaz Admitting Unavailable Amanda Samuel Primary Care Unavailable Kalie Diaz Attending Unavailable Amanda Samuel Primary Care Unavailable Anthony Rios I Attending Unavailable Anthony Rios I Admitting Unavailable Amanda Samuel Primary Care Unavailable Calvin FELIX, Kalie Attending Unavailable Kalie Diaz Admitting Unavailable CALVIN, KALIE Attending Unavailable CALVIN, KALIE Attending Unavailable CALVIN, KALIE Attending Unavailable CALVIN, KALIE Attending Unavailable CALVIN, KALIE Attending Unavailable JASMEET HUBBARD Attending Unavailable CALVIN, KALIE Attending Unavailable CALVIN, KALIE Attending Unavailable CALVIN, KALIE Attending Unavailable Allergies Allergy Classification Reported Allergen(s) Allergy Type Date of Onset Reaction(s) Facility (1 source) Unable to Assess Drug allergy (disorder) [facility] Repository (1 source) No Known Medication Allergies; Translations: [No Known Medication Allergies] Propensity to adverse reactions to drug (disorder) [facility] Repository Medications Current Medications Medication Drug [...] Nov, Active citalopram 20 mg oral tablet (6 sources) Serotonin Reuptake Inhibitor Start: 03-03-20 24 [...] hydrochloride 500 mg extended release oral tablet (14 sources) Biguanide Start: 12-09-19 take 1 tablet by mouth every twenty-four hours at mealtime metFORMIN XR (Glucophage-XR) 500 MG 24 hr tablet Indications: Encounter for weight management Take 1 tablet (500 mg) by mouth in the evening. Take with meals Do not crush, chew, or split. 30 tablet 11 12/09/2023 Active take 1 tablet by mouth every twe nty-four hours phentermine hydrochloride 37.5 mg oral tablet (20 sources) Sympathomimetic Amine Anorectic Start: 12-09-2023 End: 05-07-2024 take 1 tablet by mouth before mealtime phentermine (Adipex-P) 37.5 MG tablet Indications: Encounter for weight management Take 1 tablet (37.5 mg) by mouth in the morning. Take before meals. 30 tablet 01/08/2024 02/07/2024 Active take 1 tablet by goyo th once daily before breakfast Phentermine HCl 37.5 MG take 1 tablet by mouth every morning BEFORE BREAKFAST Oral for 30 Days Active Potassium (2 sources) Start: 03-16-2024 Potassium 99 M G tablet 03/16/2024 Active propranolol hydrochloride 40 mg oral tablet (7 sources) beta-Adrenergic [place] Start: 03-24-2024 take 1 tablet by mouth once daily propranolol (Inderal) 40 MG tablet Take 40 mg by mouth Daily 03/24/2024 Active Start: 05-29-2023 End: 02-04-2024 take 1 tablet by mouth in the morning propranolol (Inderal) 40 MG tablet Take 40 mg by mouth in the morning. 05/29/2023 02/04/2024 Discontinued Completed/Discontinued Medications Medication Drug Class(es) Dates Sig (Normalized) Sig (Original) aspirin 81 mg oral tablet (12 sources) Platelet Aggregation Inhibitor, Nonsteroidal Anti-inflammatory Drug take 1 tablet by mouth once daily Aspirin 81 81 MG 1 tablet Orally Once a day Not-Taking fluticasone propionate 0.05 mg/actuat metered dose nasal spray (5 sources) Corticosteroid Start: 06-13-2023 End: 02-04-2024 take 2 spray(s) nasal route once daily fluticasone (Flonase) 50 MCG/ACT nasal spray Administer 2 sprays into each nostril Daily 06/13/2023 02/04/2024 Discontinued Problems Active Problems Problem Classification Problem Date Documented Date Episodic/Chronic Abdominal pain (13 sources) Pelvic and perineal pain; Translations: [Pain in female pelvis] Onset: 09-05-2021 Episodic Administrative/social admission (18 sources) Patient encounter status; Translations: [Persons encountering [...] in childhood and adolescence] Chronic Female infertility (20 sources) Female infertility associated with anovulation; Translations: [...] Onset: 05-27-2023 Joint disorders and dislocations; trauma-related (12 sources) Patellofemoral disorders, right knee; Translations: [Patellofemoral syndrome of right knee] Onset: 02-21-2016 01-27-2023 Chronic Menstrual disorders (12 sources) Irregular menstruation, unspecified; Translations: [Missed period] [...] LABILITY] Onset: 10-03-2021 Episodic Other complications of (11 sources) Missed miscarriage; Translations: [Missed ] Onset: 07-09-2016 01-27-2023 Episodic Other connective tissue disease (11 sources) Muscle weakness; Translations: [Muscle weakness (generalized)] Onset: 09-09-2016 01-27-2023 Episodic Other lower respiratory disease (11 sources) Cough; Translations: [Cough] Onset: 01-27-2023 01-27-2023 Episodic Other non-traumatic joint disorders (13 sources) Pain in right knee; Translations: [Pain in joint, lower leg] Onset: 09-09-2016 01-27-2023 Episodic Other non-traumatic joint disorders (11 sources) Limitation of joint movement; Translations: [Stiffness of unspecified knee, not elsewhere classified] Onset: 09-09-2016 01-27-2023 Episodic Other screening for suspected conditions (not mental disorders or infectious disease) (15 sources) Encounter for screening for malignant neoplasm of cervix; Translations: [ care status] Onset: 07-08-2016 Episodic Unclassified (1 source) Intractable chronic migraine with aura and without status migrainosus G43.E19 Viral infection (11 sources) Viral disease; Translations: [Viral infection, unspecified] Onset: 01-27-2023 01-27-2023 Episodic Results Test Name Value Interpretation Reference Range Facility Coding Summaryon 03-29-2024 Coding Summary HTMLBase 64 AlxffqhoELi9vFt+PGhlYWQ+PE1FV GDbT70tiFXgmZ5eK2OYXJeZQjifDU PALWdVQhZvtnLfQF8cnVQgPRHp IC8+AE8yGHYhGihrlNBlk1C2oPA6H 84yyw8sRYnhsXY1FIGlIcLqjjvdk6 eyvHu7JGcmRbsiEcFs HGGssH99EIR8vI32Ql76kGHyaJIjc 2uacEv5TtSaXTKqYOI0fPmhDDmen2 PuCAYaT45eqJNqj9L2 IBIfqLhwuEJgXrToqDP4bS8qKLxqd kwxn1itjncqCgd9co42jTTxh6F6vD O5V0LkvlI4CCLfqUZu WexofJLRbX7ymjdbx6jusixqJzPmD NMyMVb4WOf9CIVgoMnvSxFjCX34IG N2QSPkokAiH1VwWUGl aYlgDnK2g1W6Kh5GA2GSNwwrL8XGR UFSWTwvdGQ+IH58ku29K3EhVtcxZy p5SATbOOL3oSR6gE7w QYWmUGeca5H8sYL3F9VdimGytm7va 0uvCTOoXTmoB16emSDch2L6MWHwbX O2EIAocFxbNbDwdW88 Oyc+VDFokHwrk9VdZmqgu1jdg2phb Iz3RyauFZKgruDbrVbgRIQ8r4YxTz 9sOXYbaNY3zKX6vF5h GnJzVoA9RCkmK218WoPenFVfNairF 64wJ0MnvXO+NSWmRbx1NHTyiEjaES 8uB0XgFCWtsyblhMLt fSafDH4tHIFepstxYFNmiJ3pTLFhN 7d1JcNbWxQ0EZxrD4GxSYOdyrcuSs 71aN3wJkQqAcL1LXmd V1UdcxZ9NQGphGReKJpkVCI1T78sa 9H4BYBoOJSfNQW4wON7zW4fxCpxjh ogbGVmdDsgdmVydGlj FZrnFInpD917GSFbyDxeHqJkIErhV yBEYXRlOiAgMTIvMDIvMjAyNDwvdG Q+LBGjJGL6gXhiBMMz rTPrDLfkKn6ukKeomJomBG6mMZFxt llkWEEhgR1cLMKweOOhiIxiAN8qBM Mvnonza426ZfPzZZF8 VGOqmTUsU4EzyU8uMhZeATWzJWDtV 0HqiFDuUNoeF745XHroMcJ7XUYynt HfO7ZtGZSrlNbmGgW5 o1Q5Co1Xn8YvrntqV5CzuHNrQcFyQ vrtFMd5E0QnPlysvSK+TX33UMOsON 96KPw3ZED2nGkoLSmi NZYvW3FskT8vHaJiXKOvVBIoWmv+P HRhYmxlIHdpZHRoPScxMDAlJyBzdH uwUW4mLi0fTCLpFSMv kKdliQRfExEsd9mwCLYgKAszOG2hm UxsW6MalTV0RGUkb9i4Xn78M46fG6 JvdXA+OWLikXH9sDS2 hY0vPcPuSjS2MNvmB056BxFsaLDxY fklp0wox3drqNn1IbI6LUPalzMpnD sdMLO3t5LtTv51G87b OZuyJQWdNPGyIXKrVMBgpRhtxm2fd G9wIi8+PSZmcVU5bFY6pA4nZeXtWs H5HGptK278LaHxvVAj Vqiat1asf3dypCc9LdGmQECgrpEwo BhsBJL7d4QnWj95P6CljCdbe0RaKe j2gk29tTWdc2S8jSJ9 X0MjURFgrczceZZyaKysOW4iKJFju okoWQLteC1uOPNcD7s7IbQcZiU1FG zvO6McirG4BYVmyEWg BYZatANRjZ2wwctpw4ydtkguDeSrW CFaYUu8OEa6ZSHukFygMuLeACQ2Al V6AUM5mKKfdS9nnKpq kdvfkL0aGtf+SHK2lDLtbZXQVB6cN jwvdGQ+ZNLcKUU6vQjyYOcaXRDvaX 1wLZXfN3x8KtPuXiT0 GDceH6VpwoA0OKHeiHHwOMEkbQDOy J5jbkyzs4ismlvfPxKqERZuOSh3ZF p0ITVdfJypAmMpLKD6 YkY5WML7pAPeaE6lnPbaroxkxE8yM yc+UncmtCicHGJ5BSt7K2BhKyq4ZE CpwAfeOV6hoNIaCAno Zm2ykGykwIfwVR8wAQFfjoidw592P iTsr3njJDJksTIgHAnrSFB3W18sh9 K1ZQQnVTXsXEJ0uUF3 fK8jhZdszarduUKouUakjgVolRydG HtuLGiaZ572HUYvnHgnVjQxRMm5G2 AbTld5XTYsaIlwCY7q bYUbNBxlUm6umGhrlVdnCG6bZSKti jqkj062TgOuo0zeMVDlcCPoDZeaNM W1Q87ie9I9ZBNoPKWl NRX9bMZ7dG6epTrvdiqkbAPuhJcqz zCacKihGBidSMsoL086XJYreQmrCc PdyKa0L7DyYxb1ERFm jKsiVK5woKWsETasKp7ieFpcaZpgC Q4jNOWuvjogl958MyZyt7azBMFwhS KzKRwiNCE1X73nv5E4 GMHdGKQzHWD5wWR8nI8xiVwwncabu PIrkGxlkxKckNfwXVauCZnaN122TM RvcDsnPlBhdGllbnQg OMduHAm0Q6VqTbsbwRM+JP78TEUzO B70eQQcwEYyx1vwzPt2RmElQSMjXV K2qNarBQjli0ZwLBCd X16pzEBzq8T0IUTxsUnysUExIiFkq SR0nX6cGFxarofee0zbxerdYpclx2 ekxj18nY54I03fMDzn TGTeMXAsSBQePYWeaPpiqo2yiZ7tW i8+JYHpcOC0uMU9eZ0fJARvBlN1XB opH293NhNilNYgVhab u9sgy1fbbIr3NmL9GCScxoYimFiuQ UN7p0VcWp77Y63eWJujJEXfPYBfOZ CkZRSscMmbqw9reS8k Ii8+MGEcxJP3wYV2vR2oRjMpQgQ1M EmcQ008OtYaoWSyDejbV77nQ1VakY A+SOEjSsp5PWBnvBhl SG8fqMCcFEirBq9nCCQ1AcCqQlAdB EktC5XwDQGakpetnqfxxMR0AZRmCP OukS11Ud4qdUerRFZb rZKXiP5hsoxml5wybemkJlGrWXVgM Of1RMu8TGJvcQrcUrHjHQJ1VcR4JW W3iZOftX4glOtkwvgi gC0dR6YmYZQtggcdJf43gD5kNiYvH wB1EJwvQsc+QLTHUTUVHnnmW3aNQR MXTDnLNg41B9TaSdz3 MILgoDpzZD0cpBVrJQuuXn6qdXhul ObaLE7tPQIhlsvcKSAjqX6yGRThiB AnlAlsLG1fDVOzznwi y413KcNwQMV0TVQubBBpA6UkbY6wU gLfUDJtPUOzC8JrfRGgAQaeL055AC vpQzW7KMUujoLuS8Hj GDBcjDxtPrD2t7L1Tu3pXd8xCw5qN Ij3NL51WN09hFMzv1P3jTR7B4SkLR IdzrynzildpAX5YYSx MPMhsI57fUFcNOvsHo5uy0S0o462F WCmAPNwqU59Sx5piQcpCIIxrAZLqW 6uqdzgo9jxytmlXyHy WCXhUZd6VPa7OFUznFwnHjPgNFE6M oB6SPJ4wNQioQ6enMcrfibncB6iJj c+QkVrAAKgzqQ1T9Id Whk2OTYjsWphWJ0moGUwTBvjCq7nv JcwzMcaYQ6iXGLnncjrQVWjwS6gIF BehBGnfPpyJV1oPPSk rzuio304LyAjRSP7ZPNzzRDlB4Ntx L2pHvWjIPZtMZQyK1LxuPDpIFtbY0 22LDhvUjT7TSPttmAn P6YrOHLunOvjUaM0j3E6Wa7RUT9NX HU8V9XlOzw1LPWsdMxgIS6kiFOoVQ iyJl8prWgboGlmWH7m BHUlnzteWMJkiE6uIHZcmZTxxYtmF N9mVKIxibnum465WfNdJPE5YXEocQ WjU2ScsQ5zLbOeCIJh UMHqJ0LryMGvULinP018ITkkTwW0Q PVtcxVzT5PnROVroEncQoG2g8O0Ck 5PUDwvdGQ+WM58kq91 G3QfYmkoHms8UFRpMKH6fJR4cS7hG GVrJOmns3G7oFH1V9DjqkOktn7ll6 tkNGZxNPrqZ11beGQx y0K1LFPwbIQ5KMYetJsjRiUwhK23A yc+HFJcfDled6NnIfhuk1hkx4sthP f5PwLmAUEvuiHgtMhv QSI6g2HlWn59H64tTKdwDNCdZILaF UCaVPUekMyqxb5dkQ2mRf9+PGNvbC F0dAZ1mO3ePsFwVvQ4 UZonB915MaYobVVrTlkhl2nhf6pnm Nd1PvWbXOFcvgOdhIjgNOZ1h5RwNv 24W3QnxHcbl1ZiJfl7 gl28aQLlq5L2fUQ2K0DhCTYbmrtna QGetXwtKB1sPYWjybesMYTwgY3lYS FnT8y7VsVcGjY4LHna F2DrveI8PVMnsJXyAFCouDWXsY9xf qbka0gdhzouYnYuUSPaKRu8EGg2HU HadItgXrXxXOF0McG8 SAN9sBTeyZ4yhWhpqdprfL3jFmb+U Gx2q5kwpVRkZT4miOM7ZA20AS60mK Gcf9A1pME9J5TzQEQg mdbmyrxdpPV8DYPwMDEixZ88Ir3ex PzdVa7vTPFoWQD8XOJiiFDoO9QrjP 1iHzPuHLIaAEYkJ9Lu mERmGUdcM076UIvzSqI2FZQhuaXeQ 5CjJOMogRovJkQ6l6C0Yh1WZO28KP 53OK91rTBrw0C0sGE6 J9ToYHSkrdsxbtqnlUV2RCCvKUXug I34Kd9saPkcRt5rRXDcUKF5WSTjxN UwN3VmcP8cXoGtENVu FNRlS1BvqJTbIAtcH674ZCuhYsJ3E RDqhgQgU0FfIQQepYydJvY5g6Y9Bl 5GPj46HJ33IK01aOAk n5P2yEF6T6UsMWKmaybizidppXC8I TZfBWGriC72Ai4ioFjgEo7rKCBsLQ N8RWRspJTxE5ZncL4u OlVbHSUgWJYbT5VjxVLxKAhzB609W DqoUeY0SIIyqnWfC3FbBJAnuBbuTs D1c9X8Bm7ZUTwzvil0 I7TwXnbicON+ZP81SDSwKR16ePCjc ZSwp9jvnLj0JjSbCEKfSDX1gGsqHN iur5WcWFAjT55rmPCn c2U (more content not included)... Normal [facility] 03-26-2024 eGFR AA >60 Invalid Interpretation Code [facility] Comment on above: Performed By: #### 1 [id number] #### [facility] (DEFAULT) [address] [place] [address] eGFR Non AA >60 Invalid Interpretation Code [facility] Comment on above: Performed By: #### 1 [id number] #### [facility] (DEFAULT) [address] [place] [address] 17583 Anion gap [Moles/Vol] 11.7 mmol/L Normal 5.0-19.0 [facility] Comment on above: Performed By: #### 1 [id number] #### [facility] (DEFAULT) [address] [place] [address] 30787 Calcium [Mass/Vol] 9.2 mg/dL Normal 8.9-10.3 [facility] Comment on above: Performed By: #### 1 [id number] #### [facility] (DEFAULT) [address] [place] [address] 59392 Chloride [Moles/Vol] 99 mmol/L Low 101-111 [facility] Comment on above: Performed By: #### 1 [id number] #### [facility] (DEFAULT) [address] [place] [address] 43158 CO2 [Moles/Vol] 28 mmol/L Normal 21-32 [facility] Comment on above: Performed By: #### 1 [id number] #### [facility] (DEFAULT) [address] [place] [address] 60361 Creatinine [Mass/Vol] 0.82 mg/dL Normal 0.60-1.30 [facility] Comment on above: Performed By: #### 1 [id number] #### [facility] (DEFAULT) [address] [place] [address] 69894 Glucose [Mass/Vol] 93.0 mg/dL Normal 74.0-118.0 [facility] Comment on above: Performed By: #### 1 [id number] #### [facility] (DEFAULT) [address] [place] [address] 45672 Osmolality 270 mOsm/L Invalid Interpretation Code [facility] Comment on above: Performed By: #### 1 [id number] #### [facility] (DEFAULT) [address] [place] [address] 36911 Potassium [Moles/Vol] 3.7 mmol/L Normal 3.6-5.1 [facility] Comment on above: Performed By: #### 1 [id number] #### [facility] (DEFAULT) [address] [place] [address] Sodium [Moles/Vol] 135.0 mmol/L Low 136.0-144.0 [facility] Comment on above: Performed By: #### 1 [id number] #### [facility] (DEFAULT) [address] [place] [address] 31100 Urea nitrogen [Mass/Vol] 12 mg/dL Normal 12-21 [facility] Comment on above: Performed By: #### 1 [id number] #### [facility] (DEFAULT) [address] [place] [address] 18104 Urea nitrogen/Creatini ne [Mass ratio] 14.6 mg/mg Normal 4.6-16.2 [facility] Comment on above: Performed By: #### 1 [id number] #### [facility] (DEFAULT) [address] [place] [address] 73082 Provider Orderson 03-26-2024 Provider Orders [id number] Normal [facility] Coding Summaryon 03-23-2024 Coding Summary HTMLBase 64 EsuueviyUEp8lYm+PGhlYWQ+PE1FV MGgL73biXBoqK3uA9HJZLtTEmelSJ QWUSpVErXtcjJqAU0aoUItWODx IC8+HH5nWAOqFsouzVEmq3S4fVZ0Q 53cru1xVVfkzCV2EWGfQwHkkwpha3 dvuKs3YIsuXivxTxVq JCKtiH31IPO2cT57Hi40lKIdhYSxn 5zkeRt3HjHeYMAiQYG1sBrhWTqxx3 FlHPGcG44thSWcx0K9 IMBemBikkFSyFbGgbFW6eT2yNDuqj xqyc6zipitpWih6ga35eMNyb8S3aH L0O4NbhwM7SUWazPPq UyxdsFJRqC4kxqlom0myxhpsEnHjW IDqIZb3HMt3GJWdtNraZwQmIJ39QV S1WQZvnwOcX8MuYVBy gYrnKbC6l8G2Sl8PL9UAEfblN4LDF UFSWTwvdGQ+RI01jt08Z1JoAxylWp m2CUMyGES5tSV8pC0e ZIYcCSbix1T9eAF7O8GspxWyey8rj 2umMHEtKYwxB41ctKQhl7Z8QTJtqV V1EXNevBiqOjDhhW97 Oyc+LQHqhLllv8ShJaeuo5yuz8llw Vs0DyjoSGSbkuLmrMpaFYU9f3ZoOy 2fAYStgLX6mUB1gY5w ZyYaOeB6FGqfL812GlFnwXEcFuptR 77dK9QvtHG+WQDrBtr6KOPkiKnqKH 9eE4IeBJUabuykiPUu dZdqLT1dFAQpaacaGKSqpU6sDXYwR 7a9SeQaBrN7GSrzK4BaILHigdrmWs 48oJ6nRmWaOfN1BEpd Q5GjkjR1WPNjuNFzVDgxVYM2E68qe 8T4KJBpVPNmGXF1yOF2iA8zhMwuoi ogbGVmdDsgdmVydGlj DWunTEiiO350JVGcnHwbKuNyGYpnY yBEYXRlOiAgMTEvMjYvMjAyNDwvdG Q+SLEyHNV4wIuvBUUx jIGgQVumPg6yhWjkqRgjXO3dQHSos vdwECFcfA8eDGTzaVLgrCzcDX7eJL Ljqatqq290IaKnUSJ6 RGRtxAVwA9ZfzV8aPwUpVOJkUVFdR 9IvrYIoTIncM207UVxhNnQ9OZPkzh EbV4NuTLNpjDyuRmH7 n1K2El0Yf3ZunqwxT3RpqHGjHqUaR ahzPEn6X6KmVynlyQK+QL66HCRvPT 47VDr3OIU0yEktNVut VVNcW1GupT9mTrDdSSPvGXOqGeq+P HRhYmxlIHdpZHRoPScxMDAlJyBzdH vuFX4kZh7rXZCdFMYc sFeaaYBnSrTxk3neNIKvQLmpRI7rd JckR5OyfBT7MUDnf5u2Pu47Q46qP8 JvdXA+QVFxyCA9wBW7 iM1wKtCrQwL1MIiaG346UnDtoORpY zyap7kyb3wdaIy3AiS9WIQoipMpbA itWUG2l0LgFy06X39n KVrsNBAfMQKgMNKyABAxuCnnte8cw G9wIi8+BPAvnIG6fGQ2mU8kSuHjLt A5SHbbH829GcCagAEs Orogd6pbc8csoSr3BsIiSXWgkaMml VtzBXW4s8VrUt99A9VwxAnkh6AdJs g7nq71cHOeh2G5rYO7 K5HyVAXtebzxeIDpmJsiDK4hXFRtj icuCLFotV3dVLIlF6i2YgQiKpQ1WQ pbX2OtqaM0JUNuzZYa ZAIgyUHQfS3bgxbzs6nipdmeCpZaO HGeQKv5VLr1PNKwaXfbWkOtGUP3Kb I2AZU6aEBrlW7zeLmb abkhlO0yKxu+LJE0uTHzqMFMKT1dC jwvdGQ+NRYsKCZ5iZxgKBalOFHbbD 8lIIJvF9x2OtSbDuN0 XPvkF4WchhT9LTDhkMXqCGAuyBKAc Y9foqsfi7llonsiGyBpTJSwRGd8YH c0GOPjoDakZdPeGFK1 YcT4CGS4wBXhdD0taCblebgmmG8uZ yc+EnxuhCzgBVB1VBe7G9MxUrx4UX GarXmdYX4kmTOzIPcw Nd8ywYjvpIacNZ7hEUBwoqsxl328P mRxz6akOVPqhBZmLQisMLT8M28rf7 S6FRZxAPHyCMQ6lSC5 xE4kiZlnukhicWBjwNrtdiGsaEahX BsnFBttZ711FMWyiQugJiPwUNw4J7 KcFqa2OMRdgTgnEI6e cOKnUGytTu2axErctEzwOH0gCYWip uuth485FeIbp5lgCWJhsNXsWVppSX P8P55ks6V9VPNxLORy GNP2hHH9iJ2yrRccwrzkmNSzaPknf oSvjOtuATfkGTotF452TZXkgVrgUt ZquSb5B5AzNeb9XTMc hXslNB5udWEiRBikDz6ppVfoiRfdI R9cWZTizisml436JbMzw6scIREjfG HlJKqjHCO4L02ox0S4 LOHxYOZmKPL7rXW3fM7lpXlgjetlx BRpnVizywHrbPhqYEcoNCmgZ051LM RvcDsnPlBhdGllbnQg MCfeYYg8S7MvEawdxBT+EC20FKIqS Q34aBHqoXYhj3mzrTy4DkYvWZWpBQ E1jNjuSUhwe4MnBMDg T42edABmy3H6TRNjbQprkJZvCxLhz RD5qK5rYEmvjrhlj3bzbbrtKnyeu9 rxya55uF56G89lHIvm KYIhEBOeWMLuBXCtbHqvvx5dlA8nT i8+QHSfvBQ1iQZ6eM5cFSVoYcH8ML gzU953VyQmsYCfIfoz e2szv0mdnMm5ZjY6QYPdszRzzVdtJ IK2b7AdEi50N92wUDyxNVZvKQClFD VsGRKchWwxgn3elH3c Ii8+DMLfyVI1lRR6mV4zFwQdHaK8M TdaD024XwIuyHUzOukdC95yM2LvnJ A+XGZrYii8IVMbaWwz UD6xtIGcQXbcDt0bSWS1GcMbXwOvK NngH3NcSOFfqnrjpubxrYQ6QXSlSY PcaY30Ub8biNlpEQYp fXDIhR1vwuvbb2biwdqrSyUgYHAeA Hx9XZm1EWQzcKabGhPoSJN8XaZ1MG Y2zVLuwU3roOudbhoq dY2bA4GoACJxnreeQk63tM1oFhNoB aI1RVzjKbt+SXKWGYJPPmbaV5aLIE XCPHhZAg45B0RdXhs0 HOMyfRlaCF5gkDOxLEjsLp3afCuby LqkWU6rIPZiamndPGTckK0bGHBtcZ YstAovLN0dZYNgaosk o038AlUxRGF6UZCebOBsS3LkwH7lC dEtEZVmVKNtD6WxtPFoZTqqZ748ZU wtVzA7AAHqjiQbW5Uq LWYodRxdDoZ5p0X6Gj8dUn5fOa1kO Tg7US63JL24mHWun0E2sTQ0V2KzOM MzvwcovvijlGG4IWFy DGPggR09sHDaWAdsCk7et1Q0e593A ICuYLJwjD23Rs2sqTjfXSHygLPFjG 0akpkmb5nhrzvbVlOv DVRoNZe6CKg2EZTwxWuxAhNdTBG6T kD1WAV2bRBfkL5zdRupwgolvB4mNq c+TrSqJBYeioG1K0Dl Hjo9WTKcrHysFX1saJFyESctBi4zk FgwlKzyNK7kIQAcvgxiXQHfmQ5jUF AdjYQraPgdCT5bXBAl wenpd610MlMiTGJ5ZTBusHAsP8Rls P1tIeEkIBAiTESoR4VwpENmDWruY0 83GWolMxW9ICOltrDj F6VgEWYcgKsmSjV7w7V3Ox4CMC5AV PV2J8FnXav3KPKedZaeCS6jgDBfPL ttXd0xkZiozOugVO5n LQMwxdcxIABcgY7uICAbkBXbaFdzI T6bFRZixtchk142VmHxMIU1UXMhbQ TyK7EigV9qJhTnNTZz ERLmA3CbjLHrHZfqM230KJarYxU0C AYqplLqH3DdHLLtrOzjQnK2z9B0Go 5AbOUhE5GdA6o7U2Hm PjwvdHI+EE52YFLoOD78hYCgoWJdo 2fhtFq4ViElXIEeGJF3qVhpNEspi4 IeLNHaX74fcPLlv0B3 AOLixTqzdOIoXoRslNW8mE3lAXbrz xgwy5ibufuxHavqg7vubf87eI37A0 9sIHdpZHRoPSIzMCUi OQEliTobxf7bzN0lLx3+MMXsbDZ7y JK1wF1jWpIgBjM4XItfB590VzXrjV OmQwlpa0qan1qgzYo1 EeSzWIUuskFqvTmxYEQ7a4OdLw55D 29sIHdpZHRoPSIyMCUiIHZhbGlnbj 2mfP2lWq0+ES2ek3xs rv82fZ32kLA+NYBzKZY1bGffZLwzX IYbgE9kWLxwBmM2DBTfIyFbfF30oB TyDCmaCw6bwAdniCvt PM4nDLKlmztus850XiHuk9aoSWHsc KNhWRbwHXF0X96jo6O8UDXoRKIcUV O1rDQ5fX2grJbpipgj nGQedWufmgAxuSfaONkqYHbiV387H UUltNjmVsEopCJgG4nbmnJZJV4bQr wvdGQ+MFKyKCQ5tGwk ATncFRZbsW6oXGJhU6v0DpLlMsJ8L XgfG0ErbrC6CDKosTXyTSArjTBNyI 0nkvlwh4grdvasWjDc WIDsILy1LDr8KWDxoDmlEoUoYAT1N fF8BYY3yONppA7dyNiznnmhhF5xKt c+RklOOjwvdGQ+PHRk XPT7qKmsHRsmYIJkjB1qLTBuU3m3B oMcDkJ2YZozD8TjszM5FQXvrQByIF SohHGFvC5dllmgz8uj aafeVfQuGSAjYEf8WEu6DEXhmZhkY gSmULR7YyF0PQY8vLNblB8hnXvatv zewZ7cJim+TVJOOjwv dGQ+QSYvASQ8pBvzPIjeQFHkgI7rF JRfA8l7FdRlSfX4WQvjB1PaimQ9JV GsyNBbSOQzmSZXgX5k piamm9qwqbxbQtErUPZaQPa6PWv0J ZKljUewQdBqFRG7YrS1JBE3pYNkrW 4kkKxrxtmbaG1pVqw+ JRO2TDS3OB63VZ98C9DkDtjqmESel +PHRhYmxlIHdpZHRoPScxMDAlJy DtrXrlRL8pUd1vRJWk LWN (more content not included)... [facility] Coding Summary HTMLBase 64 LenfahshJXq2dIf+PGhlYWQ+PE1FV ODgW69ldMUkfC7gT3MMMGyCYulzWF BICFuACwWjbdEvQU7zmDTcPRTa IC8+TS3eXFMePrtybKPqf2S3bJF5O 66pbz7bMBqyyCI6KGReYsGnxqjmd8 ttlYz8HNitRglnWsBv LASlfZ72KZH0eQ59Gg11iUCvyAFpa 1xetYl9GlPyWUWnVDD3eWdiPPpfx5 IfTLYpM01vbMPpa5Y1 EIGimOcfwNVmMqRweBV9jS3qCYevs evkb5fjgssqUol2oh29zLIni7E2pM M9N5RvgaO4COFqeQQz ZijaiENVqR7rvozov1eoocovClDbR TBoGXu0ZFs6HTLzlGdxGtKsPE67IJ H8QDWjcbBfP8YeUSDm kLstAuW8f5X1Xh4LU6YEBqwzQ4DWL UFSWTwvdGQ+XH24jp60U0DbGjjvNs f7SKWuRET7jFP7xB0w OZJmUDizi2D4gBR5S1AdhyXkft6xz 0pvPUEjLXsjS25wzJVhx8J3NHDwyH H8DQEacFstKwVbjC04 Oyc+ECPqwTlko3WgBlocc3iak3lwu Oo5FybuIETgclZjbOkcMYV5c9NfGr 2pSKEzeFU6vRM4uC9v RbYaOrL3ZNjjQ096LzStxEHtSryhB 00bH4XskSG+OHYoEvx7FFYstIzyEE 5nC7AhZVGewklrrMHx kDkwNH4oAPHyjgimBXYrsN3qJONsY 5k5BkMlOwI0ALwmU4JjWHJkzdomRj 47uK8gOdIcJtM4PUop Z9MrmhR4KMBjeWKlRZvjSVF9K35sc 4P8RWIrWCHmQWA6zYL9oU8rgEfixk ogbGVmdDsgdmVydGlj PKtzTHxbW476LOAimSopZhSiSZdtN yBEYXRlOiAgMTEvMjYvMjAyNDwvdG Q+TGTjBHA4gMjuXZTx tNArCGvmQc1wpOnhzIbgXP1nQXZdq xpiKITfpZ5dQQSgzIZqkLztMI3fCU Oqybaur902ZuRaINC4 YTGvlSHrU4NalK5tKeZrRBTvEMHxG 9NfrVNpJBvoF940NYkgStO8LKNuvs JvB6ClLKAkmPwoNvP8 i4L8Sp8Eq3DegrhuG0LzpIUfGfGrA dqrQZf8G5CdDhzovPN+VR14DBEeWO 55MCf2VLH0sObpKHdd CCEjK5ZtaV8yYaUiDWRrGUQyVbu+P HRhYmxlIHdpZHRoPScxMDAlJyBzdH dmZP8rTh9kXLHkMNPc wDmhgXKvWgNlu4qtZAVuMRorDN5ep LdcF4CwpMN8XEJug0j9Jr47T43vP8 JvdXA+VSIaoFM1rYJ9 uU6gTcPjQhY2DVgzL778PeNgrJNfP bpvn6lgg2cxaZt3StQ0RIMdhxDpmQ wwUZG5x6QvJz68G60s QEvaUMBlZQIzQZPsJYWphHfwiz0oq G9wIi8+AEPpoXX9aMF0cL6xJuQeWh E5LBdmI447UeFzwKUc Mbmkc6urd9pvaQo3AlHbXHWyzdTjs UwlAKI3p0RsQa78M8AcjNxqr9BkJt i6cj16tPToz9D8dYZ0 K2IeMKLrtfgkaBLdzNswTQ7wVRQvr kwkAICotD8lJCTgH6c3HfYyCcM1EO xrN7PhgvM7OEMoyCQk XKTzfEVTcB9vlgzev0vcprmsBnJyZ UUiYAy7SXm9IGXurMqrUrFbVOH0Ft F3BME2nZNadI4fmWad fvdggQ5lQkb+SCU7oEZdkBLDPM1qY jwvdGQ+BAEcOIG2iHpcJHfgUGKtoP 6sFWXaP9z1EaPhHgJ4 FKdgI1CpgkG4AAOruNCxTYLnuGABp H2iifent6setgalClYpQOGyJZh3JW s6FEHagMsvMmHgAKP9 TfF5SVH8oTNofH5fsVhtkncxnW1fP yc+MlcsfGucMWO7QSy5G9XlXvz2TS ExjKvsBU5cxDQpFNwr Lf9ajIzgfCnaFX4oOEHrqpylq753S bCvc7itJVWrvZScRPtrCKN1U64nt2 Q7SKKfZGWrQXC7gQT6 fZ7dkTyfdwifpYSjbIinecRrsSwkP QylSRngJ600OYBozWmnNlLePNt1I3 RzWbd2UWAyaWezLX8t nBBzJYmhRd1mnKqrnCmsGT9tLWIzm xdhp965FkAlk6llBTNabLJnPWlmLV G4J41oo8L2QXIuUUXw MQL0fBJ1uO7qwQvrlicvxBOfoXvly xHvlQzwKPorCHhlW137PUEooSctNu JhtDc6F1FiLid7QKXs gDubMT4obLAkYKewLh4slIpnhPiiH J6eCANdlltbm257AyAud2xeWHRveC HsTKzgMBX6K38vd2W1 FZErSWMmAEA2gHY6lN8ycZtzunnjq OLttKmlzbLizJqqGNbuZZyfV715PF RvcDsnPlBhdGllbnQg FMhvPLe0B2EcZibtkGV+QA37RLSmL Q43tWSoxXOys4mokIi8KwKeTTNnBL S8cCtuNMoor0HhDEIv P42xiWMbt9Q8DGDfpAkpfZVsBkKce OF0sA8gUFdavfhcx3baaopoKgwnb0 wufk57mY24N59nEYfh DBAiPJAvUUWbSGBxbFyenm1rxD8xQ i8+JOUkvUH8dYO5qE4mCZMwCeG8EM koT023LgJujNYzSwbr j0sxp6mmwLy2VkO4VIXqvxDszPnlV JT0g3PoLm73B66gYZaaEELpOFOrHT SnAROxtUxyox3vzJ0l Ii8+OXMqfTH5eZP2iY0aKeDnMeD0G LlgF943KnUqkZUqVeonD30yQ8DfhY A+VGMdLgr5LYSpkLcz UJ7fvCDeEEitMg2pVGK1MrUcQsWlE IbtS8NzEJRnquleyjfhoHB4PAExYM GjrG61Yz5hpBwsUNIi fXBVwC6ethlvu4kbnbdsIlIcHIUoM Ug3SUg1IYFimOkiVuRmGBB0SlT1VZ A3fBPkrQ3rfTvjenhh kE2vD1BvAXXhrekpIe38zY6kZlHqN fP5XRncKuu+NNHEANVYRpgeX3vACK XYIGoUUr95P5PuUdx2 NZXswCeaTM9ogAMwTSrhLj8oxQmud ObtKN7wCVIonddrHQKvrA2dIJRiqF HjhPdzTJ8oIIXgxbii e887QsXrTNG2ZSNeyXJwC8SgoW9tX bOhRLSwRAAqG4QfsGBbBNqpI705BK twPaL7KMTkceFnS4Ad TOHzsMjxQiF7x6J0Mk3wXn0xPv5xD In4OC19AG97oOBoj0X5cYH5I3QdOE KswghpkxehoQE4BHOm WXHjhU22kUAdYZnoFo3li4P2m025L VNdLAUjyW57Ty1umOciZMKhpUMToB 0fnrchw8nwzgacQtHc EEToHFo8VPy3NWTmdDtjOgOtVKC3E hP1QXC1zALojD5zbBcsqtulzW8iQf c+MwYnECTripA2K3Xj Kfw4DVNcwDurKZ4pwMCgOGorCx5oj BgnuQeyPY3jPZDrklggTFUqmX9xDR JlfMEvhLiiBV3vLEWt hrzgr453BtSqWBP9NBPoqXHrS1Ggb T8wLrJyIKIjMDMxC6TunYJlFGogU1 54GFnvFsY8MCMqfkPn H5DvZQSxkYdsJuW7v8E8Ia3LSS6SQ XO8M5CpAbg1CPBzfHrpHG3zvQDqHM caEk9udBjzjJbqLE6h MSNxlxexPYKuyF8dWUYomSKfiBluE G6cSZNvesvor735TmIuHNI3NPRpxW FsU7OhiZ9kKzZhONFa PFFuI2XjfOHlHNlqA389NBjnLqD0X EZdvxXbL7LoJQXmbZbfUpF7e7X3Jb 5PUDwvdGQ+IQ63wq06 P8YbYkhpDcf9BOUjFQU9tUZ8sP3pF ZHxLOulx3L5uXF6D6YyhwRloo5du3 azFWWyYNfkX91nvMXr r7U2YKYaiRD4EZOcsZokGyElkQ32L yc+DNVwcTqjo5SgKngku2out4wleD w0CeGgPGNrkaPvgBfd IJY2x8OvJc84F10jCMkcDDLaACHdB ROcPPKwzZaqgv0thO1oCb3+PGNvbC J3bQF0qF6oOxDzFnP0 ZXllG266UpOggTBpKfuhj3obz0dbr Gz1OdCmBRJkstNwkAajMKT8f3CsVn 18E9VrjZzue1NgTux1 pg05xFYla5Y1pFQ1Q7FfJGBibcabr XSfyVefZG8fFOQvbhojCSJicC0aYQ KhD3l2YnTaPgB6HVit V5SogeB8NJFtyPJxHRScjRGVeQ8sw kogv0ojanrhOiDfXBRjRBd1RRm9DG BeiUbbCqVpEOX6RjO3 AUJ0kMMvkP0ycDouwhqzmV9iEas+U Sc8c5ngiKEaBR5lkIH3YW01YP64zT Ejk5G3fZR1J4ExNQFk aujcgfwotAQ3RCWmSGUdmR79Uv9ik YnuXe3oYJBuTUA0HODygRRzV4UwyO 1hAmOwKKIdSMYhP0Xc uBQrEDryA172GJgfRrY6KFHvhfVlG 5NxFSCnhSbfVuF6h0N7Vl4HIE99LT 49BG04zWKvd3B4yEN7 B9JhZLOkureirxhznCM9LZZmPACuk I39Xb0chGsbVk0lPFVbFQY9MXRzyX SmX8MdcY6oSrLpVAHw VQIoR0KigTVhOMvlT776OPylUjE4T ILqmiXgV1XqJVWjeUayCfB2j3S5Ez 2WNs93AJ16BU22cPNg x0N0yUW3Y2YrWVMxdayygjrebQC9Y PCwABEfrH14Nj5qqXejDr1uHXFvNB Q7VSLsgQGkD5GjxE2u LsYbDGVhJJJzR8AlqLDfBSebA680V KuxMhT4VDGnarQzC7RhMFBbrNrwSx M0f3D8By2QZCchvse7 S6HhOgjdiBB+FC67RPBfJO96lPGps PXlw4uhpAd2LsKlNJMzXVK6dErqCH vaw8EaQIRzA65lpONa c2U (more content not included)... [facility] Consent Formson 03-17-2024 Consent Forms [id number]#1.00OTGTIFF Normal [facility] Lipid Panel Standardon 03-17 Cholesterol [Mass/Vol] 153.0 mg/dL Normal 66.0-200.0 [facility] Comment on above: Performed By: #### 1 [id number] ####[facility] (DEFAULT)[address] [place] [address] 99319 Cholesterol in HDL [Mass/Vol] 48 mg/dL Normal 40-71 [facility] Comment on above: Performed By: #### 1 [id number] ####[facility] (DEFAULT)[address] [place] [address] 60186 Cholesterol in LDL [Mass/Vol] 98 mg/dL Normal 1-100 [facility] Comment on above: Performed By: #### 1 [id number] ####[facility] (DEFAULT)[address] [place] [address] 71933 Cholesterol.total /Cholesterol in HDL [Mass ratio] 3.1 {ratio} Normal 0.0-4.5 [facility] Comment on above: Performed By: #### 1 [id number] ####[facility] (DEFAULT)[address] [place] [address] 50309 Triglyceride [Mass/Vol] 38.0 mg/dL Normal 0.0-150.0 [facility] Comment on above: Performed By: #### 1 [id number] ####[facility] (DEFAULT)[address] [place] [address] 71205 VLDL. 8 mg/dL Normal 5-40 [facility] Comment on above: Performed By: #### 1 [id number] ####[facility] (DEFAULT)[address] [place] [address] 46232 Provider Orderson 03-17-2024 Provider Orders [id number]#1.00OTGTIFF Normal [facility] TSH w/ Reflex to FT4on 03-17 TSH Qn 3.02 m[IU]/L Normal 0.45-5.33 [facility] Comment on above: Performed By: #### 1 9453547, [id number], 9030792, 4808167998, 3877639, 5378578, 159993290, 2886084940, 4208214943, 5127165 ####[facility] (DEFAULT)[address] [place] [address] .Auto Diff 03-16-2024 Auto [place] % 7 % Normal -12 [facility] Comment on above: Performed By: #### 1 1205132, 2302885731, 8730079, 3957127165, 5385715, 9910971, 094355382, 2369280419, 7043888296, 1281839 #### [facility] (DEFAULT) [address] [place] [address] Baso Abs# 0.0 x10 Normal 0.0-0.2 [facility] Comment on above: Performed By: #### 1 8863090, 7445657818, 3110670, 3655486326, 1169341, 4814550, 075988716, 6579769656, 4120362841, 8588164 #### [facility] (DEFAULT) [address] [place] [address] Basophils/100 WBC (Bld) 0.7 % Normal 0.2-2.0 [facility] Comment on above: Performed By: #### 1 8335875, 9917271222, 3415976, 8338355542, 9699431, 7707773, 177720173, 1477237878, 6655202457, 6500619 #### [facility] (DEFAULT) [address] [place] [address] Eos Abs# 0.0 x10 Normal 0.0-0.4 [facility] Comment on above: Performed By: #### 1 4109484, 4314671169, 9994960, 4465587320, 7839630, 1516375, 470951597, 7678036739, 1081762150, 3387338 #### [facility] (DEFAULT) [address] [place] [address] 08622 Eosinophils/100 WBC (Bld) 0.5 % Low 0.9-4.0 [facility] Comment on above: Performed By: #### 1 8198175, 1141258936, 3467201, 0212107955, 9053517, 2448300, 162574731, 1758145848, 9308522358, 0852296 #### [facility] (DEFAULT) [address] [place] [address] 83145 Lymph Abs# 2.2 x10 Normal 1.3-2.9 [facility] Comment on above: Performed By: #### 1 4917569, 2652657782, 8231434, 7323242446, 0568106, 1966161, 603097418, 7229751480, 9981249908, 6541832 #### [facility] (DEFAULT) [address] [place] [address] 34421 Lymphocytes/100 WBC (Bld) 31 % Normal 14-48 [facility] Comment on above: Performed By: #### 1 7633768, 2721254490, 1530467, 2633265324, 9215617, 0526102, 716221029, 8115716706, 5359783379, 1790698 #### [facility] (DEFAULT) [address] [place] [address] 72025 Newport Abs# 0.5 x10 Normal 0.0-0.8 [facility] Comment on above: Performed By: #### 1 8059705, 0403501956, 9141483, 1190671305, 4846241, 4993167, 622785921, 7989935464, 0284822680, 6041672 #### [facility] (DEFAULT) [address] [place] [address] 06680 Neut Abs# 4.4 x10 Normal 1.5-9.2 [facility] Comment on above: Performed By: #### 1 1335196, 8005240178, 8653553, 5050734244, 7665337, 3191927, 729342016, 9869994545, 7264478352, 7777251 #### [facility] (DEFAULT) [address] [place] [address] 06280 Neutrophils/100 WBC (Bld) 61 % Normal 44-88 [facility] Comment on above: Performed By: #### 1 6995968, 7716712595, 9725182, 2613992593, 8807437, 9021089, 627154089, 6436777467, 1260497364, 8135073 #### [facility] (DEFAULT) [address] [place] [address] 63243 BNP.on 03-16-2024 Internal Control Pass Normal [facility] Comment on above: Performed By: #### 1 8160629, 2555204309, 9050481, 7260957417, 7859977, 2101914, 257562449, 7902398504, 8536388474, 7818395 ####[facility] (DEFAULT)[address] [place] [address] 35900 Natriuretic peptide B (Bld) [Mass/Vol] pg/mL Normal 0.0-100.0 [facility] Comment on above: Result Comment: BNP results greater than 100 pg/mL are considered abnormal and suggestive of patients with CHF. Higher BNP concentrations measured in the first 72 hours after an acute coronary syndorme are associated with an increased risk of , myocardial infarction, and CHF. Performed By: #### 1 8979311, 7536635777, 1793858, 0551574614, 4780975, 9386624, 373693156, 6463096459, 6074412146, 5614852 ####[facility] (DEFAULT)[address] [place] [address] 82654 CBC w/ Auto Diffon Erythrocyte distribution width (RBC) [Ratio] 12.6 % Normal 11.5-15.0 [facility] Comment on above: Performed By: #### 1 4335376, 1994482460, 8268070, 8076444028, 2374625, 9365298, 435909819, 1087390243, 9667363129, 1393962 #### [facility] (DEFAULT) [address] [place] [address] 30190 Hematocrit (Bld) [Volume fraction] 47.1 % High 33.7-40.4 [facility] Comment on above: Performed By: #### 1 6617795, 4509447612, 6438124, 8798922745, 4014939, 5340539, 784322162, 1798831368, 5661987726, 5655716 #### [facility] (DEFAULT) [address] [place] [address] Hemoglobin (Bld) [Mass/Vol] 16.2 g/dL High 11.3-15.9 [facility] Comment on above: Performed By: #### 1 5424314, 3003847849, 7795932, 6956655548, 4124834, 6398031, 591993562, 8820972727, 4070963539, 3593139 #### [facility] (DEFAULT) [address] [place] [address] Man Diff? Auto Invalid Interpretation Code [facility] Comment on above: Performed By: #### 1 9169426, 1360799389, 7414960, 0872021325, 2034462, 7884761, 676876829, 1209816086, 9364160222, 9136622 #### [facility] (DEFAULT) [address] [place], [place] [address] MCH (RBC) [Entitic mass] 31 pg Normal 24-34 [facility] Comment on above: Performed By: #### 1 3253059, 0808078443, 4101728, 8157524304, 8487403, 6556848, 714229408, 7298469145, 6300092708, 5692292 #### [facility] (DEFAULT) [address] [place] [address] 13808 MCHC (RBC) [Mass/Vol] 34 g/dL Normal 26-37 [facility] Comment on above: Performed By: #### 1 1474602, 7471165841, 7516109, 9406474400, 9683306, 2463461, 263871160, 1160547610, 0503856289, 2111444 #### [facility] (DEFAULT) [address] [place] [address] 34521 MCV (RBC) [Entitic vol] 91 fL Normal 81-100 [facility] Comment on above: Performed By: #### 1 2440337, 5888403175, 8110700, 5018379939, 3801967, 9726028, 964954649, 4374702170, 2127444561, 7009814 #### [facility] (DEFAULT) [address] [place] [address] 41394 Platelet 297 x10 Normal 138-427 [facility] Comment on above: Performed By: #### 1 7143429, 9999288469, 8192089, 3416904777, 2113486, 9716666, 082390408, 9071386581, 4576872337, 1253543 #### [facility] (DEFAULT) [address] [place] [address] Platelet mean volume (Bld) [Entitic vol] 9.5 fL Normal 6.3-10.2 [facility] Comment on above: Performed By: #### 1 2119314, 3539865083, 5465593, 7175545278, 8963477, 4028031, 708639003, 0056557713, 8117811975, 1472109 #### [facility] (DEFAULT) [address] [place], [place] [address] RBC 5.18 x10 Normal 3.70-5.30 [facility] Comment on above: Performed By: #### 1 3353577, 8070259793, 8711027, 7232064465, 0540800, 3280750, 913182800, 3828358529, 1496084259, 5075236 #### [facility] (DEFAULT) [address] [place] [address] 96068 WBC 7.2 x10 Normal 3.5-10.5 [facility] Comment on above: Performed By: #### 1 8289455, 2758350916, 2626467, 4044814974, 1548997, 6868519, 320140293, 9604632764, 2102061728, 5670500 #### [facility] (DEFAULT) [address] [place] [address] 78984 CMP Standardon 03-16-2024 Breakpoint Chem Normal [facility] Comment on above: Performed By: #### 1 3202823, 7190729078, 9780592, 1512558162, 4677472, 9637207, 047819729, 4634011662, 8661532379, 1256631 #### [facility] (DEFAULT) [address] [place] [address] eGFR Non AA >60 Invalid Interpretation Code [facility] Comment on above: Performed By: #### 1 8705147, 2427380011, 7930784, 1854945279, 9595280, 6326759, 333184261, 8789697413, 9605928574, 4846587 #### [facility] (DEFAULT) [address] [place] [address] 70554 eGFR AA >60 Invalid Interpretation Code [facility] Comment on above: Performed By: #### 1 6742807, 5372964860, 6413443, 4078856013, 3602885, 1833213, 070902889, 8647217855, 1362835427, 2047804 #### [facility] (DEFAULT) [address] [place] [address] Albumin [Mass/Vol] 4.7 g/dL Normal 3.5-5.0 [facility] Comment on above: Performed By: #### 1 0646857, 9801370017, 7844976, 1165971026, 5954580, 7452799, 749257159, 2479124348, 1731013017, 6339115 #### [facility] (DEFAULT) [address] [place] [address] Albumin/Globulin [Mass ratio] 1.4 {ratio} Normal 1.4-2.6 [facility] Comment on above: Performed By: #### 1 6462986, 5005794906, 3723868, 7041297822, 3182241, 6128845, 828365293, 3880707517, 7818553528, 0369438 #### [facility] (DEFAULT) [address] [place] [address] Alk Phos 76 IU/L Normal 32-91 [facility] Comment on above: Performed By: #### 1 5597300, 4166100312, 9859676, 1534982753, 4222194, 0205003, 931282476, 9816721550, 6757101032, 2045829 #### [facility] (DEFAULT) [address] [place] [address] 16235 ALT [Catalytic activity/Vol] 22.0 U/L Normal 14.0-54.0 [facility] Comment on above: Performed By: #### 1 1859929, 4818813871, 3711508, 2605578863, 6210284, 8544397, 530814656, 7050752313, 8588418939, 3112266 #### [facility] (DEFAULT) [address] [place] [address] 17569 Anion gap [Moles/Vol] 19.9 mmol/L High 5.0-19.0 [facility] Comment on above: Performed By: #### 1 5906837, 9811546173, 6799341, 1589537329, 8983284, 1894645, 150656265, 6328363825, 7764712223, 7460703 #### [facility] (DEFAULT) [address] [place] [address] 12866 AST [Catalytic activity/Vol] 29 U/L Normal 15-41 [facility] Comment on above: Performed By: #### 1 6015188, 0194857916, 1376400, 2564818061, 1782971, 2895067, 113883734, 4900985466, 1927227998, 1385250 #### [facility] (DEFAULT) [address] [place] [address] 61272 Bili Total 0.8 mg/dL Normal 0.3-1.2 [facility] Comment on above: Performed By: #### 1 8593019, 5842715568, 7382276, 0020627320, 5125569, 8614352, 059122879, 9506021028, 9048844663, 3826739 #### [facility] (DEFAULT) [address] [place] [address] 03246 Calcium [Mass/Vol] 9.4 mg/dL Normal 8.9-10.3 [facility] Comment on above: Performed By: #### 1 0127175, 0947427808, 9110502, 6275241696, 3739488, 8622115, 097239785, 1315310597, 5041149358, 8991649 #### [facility] (DEFAULT) [address] [place] [address] 37772 Chloride [Moles/Vol] 100 mmol/L Low 101-111 [facility] Comment on above: Performed By: #### 1 9187938, 1711991283, 2920046, 7038939589, 2777382, 2631690, 377627590, 0785715929, 6684170984, 9593673 #### [facility] (DEFAULT) [address] [place] [address] 47089 CO2 [Moles/Vol] 16 mmol/L Low 21-32 [facility] Comment on above: Performed By: #### 1 3131492, 1603754796, 3483894, 6489477210, 7681112, 1138452, 491634580, 7959384042, 3710963564, 7586183 #### [facility] (DEFAULT) [address] [place] [address] 64819 Creatinine [Mass/Vol] 0.97 mg/dL Normal 0.60-1.30 [facility] Comment on above: Performed By: #### 1 6417593, 3732007770, 7261149, 6680838526, 8746525, 5296992, 525816117, 1160102267, 7784725016, 6794388 #### [facility] (DEFAULT) [address] [place] [address] 17289 Globulin (S) [Mass/Vol] 3.3 g/dL Normal 1.5-4.3 [facility] Comment on above: Performed By: #### 1 9588734, 1466228280, 5112917, 9431786732, 1093884, 7934797, 924170567, 1902731269, 6566305053, 8825184 #### [facility] (DEFAULT) [address] [place] [address] 19620 Glucose [Mass/Vol] 114.0 mg/dL Normal 74.0-118.0 [facility] Comment on above: Performed By: #### 1 3348463, 1057844984, 6716676, 5690411416, 7103578, 2029363, 959755751, 7962703550, 3437408353, 9138370 #### [facility] (DEFAULT) [address] [place] [address] 20361 Osmolality 268 mOsm/L Invalid Interpretation Code [facility] Comment on above: Performed By: #### 1 9065172, 6220033109, 7303723, 8813423105, 8664100, 0083654, 145668520, 6880896284, 1284153715, 3459965 #### [facility] (DEFAULT) [address] [place] [address] 62353 Potassium [Moles/Vol] 2.9 mmol/L Low 3.6-5.1 [facility] Comment on above: Performed By: #### 1 8205352, 0960694540, 4906284, 6741847106, 1949143, 1041524, 496338923, 8146950911, 7329581782, 6952754 #### [facility] (DEFAULT) [address] [place] [address] 59242 Protein [Mass/Vol] 8.0 g/dL Normal 6.5-8.1 [facility] Comment on above: Performed By: #### 1 7046543, 5929446353, 5811273, 9385262447, 9468082, 6386576, 326724663, 4921822180, 8529390226, 8753134 #### [facility] (DEFAULT) [address] [place] [address] 39103 Sodium [Moles/Vol] 133.0 mmol/L Low 136.0-144.0 [facility] Comment on above: Performed By: #### 1 8794888, 3317086594, 4153588, 2158910833, 9426746, 5993428, 556430047, 6353271685, 3595928481, 8394737 #### [facility] (DEFAULT) [address] [place] [address] 99118 Urea nitrogen [Mass/Vol] 15 mg/dL Normal 8-26 [facility] Comment on above: Performed By: #### 1 0512152, 3554995364, 0411742, 9047959010, 4196176, 6702805, 461850000, 6432999659, 9994418981, 7448415 #### [facility] (DEFAULT) [address] [place] [address] Urea nitrogen/Creatini ne [Mass ratio] 15.4 mg/mg Normal 4.6-16.2 [facility] Comment on above: Performed By: #### 1 6865761, 9135924170, 4793609, 8037020664, 6465302, 4767250, 149734152, 7019210656, 2322012598, 3387734 #### [facility] (DEFAULT) [address] [place] [address] CT PE Chest w/ Contraston CT PE Chest w/ Contrast EXAMINATION: CT PE Chest w/ Contrast HISTORY: Chest pain, tachycardia, tachypnea COMPARISON: CT pulmonary arteries, 09/28/2021. TECHNIQUE: CT angiography of the pulmonary arteries following the administration of 100 mL of Omnipaque 350 intravenous contrast. Coronal and sagittal MIP (maximum intensity projection) images were performed. Dose reduction techniques were achieved by using automated exposure control and/or adjustment of mA and/or kV according to patient size and/or use of iterative reconstruction technique. FINDINGS: There is good enhancement of the pulmonary arteries. No acute pulmonary embolism is seen. Cardiac size is normal. There is no pericardial effusion or coronary arterial calcification. The thoracic aorta and arch vessels appear normal. There is no dissection or aneurysm. There is normal thymic tissue in the anterior mediastinal fat. No thoracic adenopathy is seen. The thyroid gland and esophagus are unremarkable. The lungs and pleural spaces are clear. There is a 4 mm nonobstructing stone in the upper pole of the left kidney. The upper abdomen is otherwise unremarkable. The bony thorax is intact. No osseous abnormality is seen. IMPRESSION: 1. No acute pulmonary embolism, aortic dissection, or other acute diagnostic abnormality in the chest or upper abdomen. 2. Nonobstructing 4 mm left renal calculus. Final Dictated by: Codey Bee MD Dictated DT/TM: 03/16/24 10:32 Signed (Electronic Signature): Codey Bee MD 03/16/24 10:36 p Technologist: NAT Adame [facility] ED Clinical Summaryon 2023 ED Clinical Summary [facility] - Emergency Department [address] [place] [address] ED Clinical Summary PERSON INFORMATION Name: SAIMA YANCEY Age: 28 Years Sex: FEMALE : 1995 MRN: Acct#: Visit Reason: Anxiety; Chest pressure; SHAKING, NUMBNESS, CHEST PAIN Arrival: 03/16/2024 17:36:13 Discharge: 03/16/2024 22:54:00 LOS: 000 05:18 Check In: 03/16/2024 17:36:13 Checkout:03/16/2024 22:54:00 Address: [address] [place] [address] PCP: Amanda Samuel CNP PROVIDER INFORMATION Provider Role Assigned Unassigned Emma GiffordP ED PA 03/16/2024 17:38:18 Armida Johns DIRECTOR OF AVIATION Nurse 03/16/2024 17:53:56 Ailyn Dixon DIRECTOR OF AVIATION Nurse 03/16/2024 19:05:43 Ayad Campos DO ED Provider 03/16/2024 21:26:05 VITALS INFORMATION Vital Sign Triage Latest Temperature Tympanic Temperature Temporal Artery 36.4 DegC Pulse Rate 147 bpm 126 bpm O2 Sat 100 % 98 % Respiratory Rate 30 br/min 17 br/min Blood Pressure /100 mmHg /100 mmHg MEDICAL INFORMATION Medications Given: Medication Dose Route potassium chloride (potassium chloride 20 mEq oral tablet, extended release) 40 mEq Oral iohexol (Omnipaque 350 100 ml) 350 mg IV Push Allergy Information: No Known Medication Allergies PHYSICIAN DOCUMENTATION Patient: SAIMA YANCEY Age: 28 years Sex: FEMALE : 1995 Associated Diagnoses: Chest heaviness; Chest pressure; Hypokalemia; Tachycardia Author: Ayad Campos DO Basic Information Additional information: Chief Complaint from Nursing Triage Note : Chief Complaint 03/16/2024 17:45 EST Chief Complaint Patient arrives with c/o chest heaviness that started around 1400 today after work, SOB, hand shakiness. Face and hand numbness started 20 mins ago. . History of Present Illness Patient initially seen and evaluated by my physician general surgery physician assistant. Please see her note for full H&P and review of systems. Health Status Allergies: Allergic Reactions (Selected) No Known Medication Allergies. Medications: (Selected) Prescriptions Prescribed Potassium Chloride (Eqv-K-Tab) 10 mEq oral tablet, extended release: 10 mEq = 1 tab(s), Oral, Daily, for 3 day(s), 3 tab(s), 0 Refill(s) Documented Medications Documented MetFORMIN (Eqv-Glucophage XR) 500 mg oral tablet, extended release: 0 Refill(s) citalopram 20 mg oral tablet: 0 Refill(s) phentermine 37.5 mg oral tablet: 0 Refill(s). Past Medical/ Family/ Social History Medical history: Resolved Disease caused by 2019 novel coronavirus ([id number]): Onset on 05/03/2021 at 26 years. Resolved. 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 Surgical history: No active procedure history items have been selected or recorded.. Family history: No family history items have been selected or recorded.. Social history: Social & Psychosocial Habits Alcohol 06/06/2022 Alcohol Use: Never 04/26/2023 Alcohol Use: Never 03/16/2024 Alcohol Use: Never Substance Use 06/06/2022 Substance use: Never 04/26/2023 Substance use: Never 03/16/2024 Substance use: Never Tobacco 06/06/2022 Smoking tobacco use: Never tobacco user 04/26/2023 Smoking tobacco use: Never tobacco user 03/16/2024 Smoking tobacco use: Never tobacco user Electronic Cigarette/Vaping 06/06/2022 Electronic Cigarette Use: Never 04/26/2023 Electronic Cigarette Use: Never 03/16/2024 Electronic Cigarette Use: Never . Problem list: Active Problems (2) Cough Viral illness . Physical Examination Vital Signs Vital Signs 03/16/2024 22:24 EST Peripheral Pulse Rate 126 bpm HI Heart Rate Monitored 126 bpm HI SpO2 98 % 03/16/2024 22:24 EST Respiratory Rate 17 br/min Systolic Blood Pressure 135 mmHg HI Diastolic Blood Pressure 100 mmHg HI 03/16/2024 22:14 EST Peripheral Pulse Rate 115 bpm HI Heart Rate Monitored 115 bpm HI Respiratory Rate 18 br/min SpO2 100 % 03/16/2024 21:19 EST Heart Rate Monitored 118 bpm HI Respiratory Rate 17 br/min Systolic Blood Pressure 120 mmHg Diastolic Blood Pressure 86 mmHg HI Mean Arterial Pressure, Cuff 97 mmHg Mean Arterial Pressure Cuff 100 mmHg SpO2 100 % 03/16/2024 20:52 EST Heart Rate Monitored 108 bpm HI Respiratory Rate 18 br/min 03/16/2024 20:52 EST Systolic Blood Pressure 120 mmHg Diastolic Blood Pressure 80 mmHg Mean Arterial Pressure, Cuff 93 mmHg Mean Arterial Pressure Cuff 99 mmHg SpO2 99 % 03/16/2024 20:34 EST Heart Rate Monitored 115 bpm HI Respiratory Rate 17 br/min SpO2 99 % 03/16/2024 20:34 EST Systolic Blood Pressure 118 mmHg Diastolic Blood Pressure 79 mmHg Mean Arterial Pressure, Cuff 92 mmHg Mean Arterial Pressure Cuff 92 mmHg 03/16/2024 20:15 EST Heart Rate Monitored 123 bpm HI Respiratory Ra (more content not included)... Normal [facility] ED Note - Physicianon 2023 ED Note - Physician Patient: SAIMA YANCEY Age: 28 years Sex: FEMALE : 1995 Associated Diagnoses: Chest heaviness; Chest pressure; Hypokalemia; Tachycardia Author: Ayad Campos DO Basic Information Additional information: Chief Complaint from Nursing Triage Note : Chief Complaint 03/16/2024 17:45 EST Chief Complaint Patient arrives with c/o chest heaviness that started around 1400 today after work, SOB, hand shakiness. Face and hand numbness started 20 mins ago. . History of Present Illness Patient initially seen and evaluated by my physician general surgery physician assistant. Please see her note for full H&P and review of systems. Health Status Allergies: Allergic Reactions (Selected) No Known Medication Allergies. Medications: (Selected) Prescriptions Prescribed Potassium Chloride (Eqv-K-Tab) 10 mEq oral tablet, extended release: 10 mEq = 1 tab(s), Oral, Daily, for 3 day(s), 3 tab(s), 0 Refill(s) Documented Medications Documented MetFORMIN (Eqv-Glucophage XR) 500 mg oral tablet, extended release: 0 Refill(s) citalopram 20 mg oral tablet: 0 Refill(s) phentermine 37.5 mg oral tablet: 0 Refill(s). Past Medical/ Family/ Social History Medical history: Resolved Disease caused by 2019 novel coronavirus ([id number]): Onset on 05/03/2021 at 26 years. Resolved. 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 Surgical history: No active procedure history items have been selected or recorded.. Family history: No family history items have been selected or recorded.. Social history: Social & Psychosocial Habits Alcohol 06/06/2022 Alcohol Use: Never 04/26/2023 Alcohol Use: Never 03/16/2024 Alcohol Use: Never Substance Use 06/06/2022 Substance use: Never 04/26/2023 Substance use: Never 03/16/2024 Substance use: Never Tobacco 06/06/2022 Smoking tobacco use: Never tobacco user 04/26/2023 Smoking tobacco use: Never tobacco user 03/16/2024 Smoking tobacco use: Never tobacco user Electronic Cigarette/Vaping 06/06/2022 Electronic Cigarette Use: Never 04/26/2023 Electronic Cigarette Use: Never 03/16/2024 Electronic Cigarette Use: Never . Problem list: Active Problems (2) Cough Viral illness . Physical Examination Vital Signs Vital Signs 03/16/2024 22:24 EST Peripheral Pulse Rate 126 bpm HI Heart Rate Monitored 126 bpm HI SpO2 98 % 03/16/2024 22:24 EST Respiratory Rate 17 br/min Systolic Blood Pressure 135 mmHg HI Diastolic Blood Pressure 100 mmHg HI 03/16/2024 22:14 EST Peripheral Pulse Rate 115 bpm HI Heart Rate Monitored 115 bpm HI Respiratory Rate 18 br/min SpO2 100 % 03/16/2024 21:19 EST Heart Rate Monitored 118 bpm HI Respiratory Rate 17 br/min Systolic Blood Pressure 120 mmHg Diastolic Blood Pressure 86 mmHg HI Mean Arterial Pressure, Cuff 97 mmHg Mean Arterial Pressure Cuff 100 mmHg SpO2 100 % 03/16/2024 20:52 EST Heart Rate Monitored 108 bpm HI Respiratory Rate 18 br/min 03/16/2024 20:52 EST Systolic Blood Pressure 120 mmHg Diastolic Blood Pressure 80 mmHg Mean Arterial Pressure, Cuff 93 mmHg Mean Arterial Pressure Cuff 99 mmHg SpO2 99 % 03/16/2024 20:34 EST Heart Rate Monitored 115 bpm HI Respiratory Rate 17 br/min SpO2 99 % 03/16/2024 20:34 EST Systolic Blood Pressure 118 mmHg Diastolic Blood Pressure 79 mmHg Mean Arterial Pressure, Cuff 92 mmHg Mean Arterial Pressure Cuff 92 mmHg 03/16/2024 20:15 EST Heart Rate Monitored 123 bpm HI Respiratory Rate 22 br/min HI SpO2 99 % 03/16/2024 20:15 EST Peripheral Pulse Rate 121 bpm HI 03/16/2024 20:15 EST Systolic Blood Pressure 124 mmHg HI Diastolic Blood Pressure 77 mmHg Mean Arterial Pressure, Cuff 93 mmHg Mean Arterial Pressure Cuff 95 mmHg 03/16/2024 19:08 EST Peripheral Pulse Rate 118 bpm HI Respiratory Rate 17 br/min Systolic Blood Pressure 134 mmHg HI Diastolic Blood Pressure 95 mmHg HI Mean Arterial Pressure, Cuff 108 mmHg HI Mean Arterial Pressure Cuff 108 mmHg SpO2 98 % Oxygen Therapy Room air 03/16/2024 18:30 EST Heart Rate Monitored 115 bpm HI Respiratory Rate 13 br/min LOW SpO2 100 % 03/16/2024 18:30 EST Peripheral Pulse Rate 119 bpm FL 03/16/2024 18:30 EST Systolic Blood Pressure 131 mmHg HI Diastolic Blood Pressure 96 mmHg HI Mean Arterial Pressure, Cuff 108 mmHg HI Mean Arterial Pressure Cuff 113 mmHg 03/16/2024 18:00 EST Heart Rate Monitored 116 bpm HI Respiratory Rate 20 br/min SpO2 100 % 03/16/2024 18:00 EST Peripheral Pulse Rate 118 bpm FL 03/16/2024 18:00 EST Systolic Blood Pressure 134 mmHg HI Diastolic Blood Pressure 91 mmHg HI Mean Arterial Pressure, Cuff 105 mmHg HI Mean Arterial Pressure Cuff 109 mmHg 03/16/2024 17:54 EST Peripheral Pulse Rate 130 bpm HI Heart Rate Monitored 129 bpm HI Respiratory Rate 19 br/min (more content not included)... [facility] ED Note-Nursingon 03-16-2024 ED Note-Nursing Pt ambulatory back t o ED RM 7 with friend at bedside C/O numbness, tingling, SOB, chest pressure that all started around 2pm. pt denies having anxiety or a panic attack. Pt is breathing fasttly at bedside. pt denies any medication taken. Pt did stated i struggle with depression, I have started a new job. I have a lot going on Pt has bilateral clear lungs. Pt is A/Ox4 call light within reach. very anxious on the cart Normal [facility] ED Patient Summaryon 024 ED Patient Summary [facility] - Emergency Department [address] [place] [address] PATIENT DISCHARGE INSTRUCTIONS Patient Information Name: SAIMA YANCEY Age: 28 Years Date of : 1995 Reason For Visit: Anxiety; Chest pressure; SHAKING, NUMBNESS, CHEST PAIN Arrival Time: 03/16/2024 17:36:13 Primary Care Physician: Amanda Samuel CNP Attending Physician: Jaylen Jiang MD Comment: Visit Diagnosis: Diagnoses This Visit Anxiety ([id number]) Chest heaviness (R07.89) Chest pressure ([id number]) Hypokalemia (E87.6) Tachycardia (R00.0) The Pharmacy at [facility] is open Friday through Friday from [...] alcohol and/or drug addiction problems; contact the [facility] 18/11 Crisis Hotline -Text 4HRFO yj [phone]. If you received any narcotics, sedation, or [...] documents With: Address: When: Amanda Samuel [address] [place] [address] Business (1) Within 2 to 4 days Comments: Call for follow up appointment Return if symptoms worsen Medication Information: The exam and treatment you received today in the [facility] Emergency Department were for an urgent problem and are not intended as complete care. It is important for you to follow up with a doctor, nurse practitioner, or physician?s general surgery physician assistant for ongoing care. If your symptoms [...] so we can reach you if necessary. [facility] Emergency Department has provided you with a complete list of medications post discharge. Please inform your curtain stretcher/provider of your visit and for further instruction on these medications. Any specific questions regarding your chronic medications and dosages should be discussed with your primary care physician(s) and/or pharmacist. New Medications The [facility] at [facility], [address] [place] [address] [phone], [phone] potassium chloride (Potassium Chloride (Eqv-K-Tab) 10 mEq oral tablet, extended release) 1 tab(s) Oral (given by mouth) every day for 3 Days. Refills: 0. Additional medications on your home medication list not specifically addressed. Please contact the ordering physician if you have questions about these medications. citalopram (citalopram 20 mg oral tablet) metFORMIN (MetFORMIN (Eqv-Glucophage XR) 500 mg oral tablet, extended release) phentermine (phentermine 37.5 mg oral tablet) Visit Information Allergies: Substance Reaction Symptoms Type Comments No Known Medication Allergies Drug Vital Signs: Vitals and Measurements this Visit (last charted value for your 03/16/2024 visit) Vital Signs This Visit Temperature Temporal Artery: 36.4 DegC Peripheral Pulse Rate: 126 bpm Heart Rate Monitored: 126 bpm Respiratory Rate: 17 br/min Systolic Blood Pressure: 135 mmHg Diastolic Blood Pressure: 100 mmHg Mean Arterial Pressure, Cuff-Calculation: 97 mmHg Mean Arterial Pressure Cuff-Monitor: 100 mmHg SpO2: 98 % Oxygen Therapy: Room air Measurements This Visit Height/Length Measured: 175 cm Weight Measured: 129.18 kg Weight Dosin.180 kg Body Mass Index: 42.18 kg/m2 Problems List: Problem Onset Comments Cough Viral illness Patient Education Shortness of Breath, Adult Shortness of breath means you have trouble breathing. Shortness of breath could be a sign of a medical problem. Follow these instructions at home: (Inserted Im (more content not included)... Normal [facility] Extra Redon 03-16-2024 Tube Collected Yes Invalid Interpretation Code [facility] Comment on above: Performed By: #### 1 [id number], [id number], [id number], [id number], 7840026, 5680327, [id number], [id number], [id number], [id number] #### [facility] (DEFAULT) [address] [place] [address] Magnesiumon 03-16-2024 Magnesium [Mass/Vol] 1.95 mg/dL Normal 1.80-2.50 [facility] Comment on above: Performed By: #### 1 [id number], [id number], 7350637, [id number], 1064686, 1819909, 585245268, [id number], [id number], [id number] ####[facility] (DEFAULT)[address] [place] [address] 79166 PTon 03-16-2024 INR Coag (PPP) [Relative time] 1.02 {INR} Normal 0.91-1.11 [facility] Comment on above: Performed By: #### 1 [id number], [id number], 5203452, [id number], 5367755, 6354513, 778578364, [id number], [id number], [id number] ####[facility] (DEFAULT)[address] [place] [address] PT 10.6 second(s) Normal 9.7-11.8 [facility] Comment on above: Performed By: #### 1 [id number], [id number], 1775049, [id number], 8464752, 3799789, 476024987, 8288465783, 0928392211, 3129102 ####[facility] (DEFAULT)[address] [place] [address] 13155 Test Urine 1on U Preg Negative Normal [facility] Comment on above: Performed By: #### 3 [id number] ####[facility] (DEFAULT)[address] [place] [address] 98460 U Preg Internal Control Pass Normal [facility] Comment on above: Performed By: #### 3 [id number] ####[facility] (DEFAULT)[address] [place] [address] TnI HSon 03-16-2024 Troponin I High Sensitivity <2.3 Normal <=15.0 [facility] Comment on above: Performed By: #### 1 [id number], [id number], 7113140, [id number], 4630240, 8898859, 399944878, 5711767062, 0847286863, 3530121 ####[facility] (DEFAULT)[address] [place] [address] 91748 UA Bsruf0dn 03-16-2024 UA Amorph. 4+ Normal [facility] Comment on above: Order Comment: Urina lysis Microscopic order added on by [employer] Expert Rules system. Performed By: #### 1 [id number], [id number] ####[facility] (DEFAULT)[address] [place] [address] 08239 UA Bacteria Trace Normal [facility] Comment on above: Order Comment: Urina lysis Microscopic order added on by [employer] Expert Rules system. Performed By: #### 1 [id number], [id number] ####[facility] (DEFAULT)[address] [place] [address] UA RBC None Seen [facility] Comment on above: Order Comment: Urina lysis Microscopic order added on by [employer] Rules system. Performed By: #### 1 [id number], [id number] ####[facility] (DEFAULT)[address] [place] [address] UA Squam Epi Few [facility] Comment on above: Order Comment: Urina lysis Microscopic order added on by [employer] Rules system. Performed By: #### 1 [id number], [id number] ####[facility] (DEFAULT)[address] [place] [address] 40307 UA WBC 0-2 [facility] Comment on above: Order Comment: Urina lysis Microscopic order added on by [employer] Expert Rules system. Performed By: #### 1 [id number], [id number] ####[facility] (DEFAULT)[address] [place] [address] UA w Culture if Ind Standard on 03-16-2024 Breakpoint UA [facility] Comment on above: Performed By: #### 1 [id number], [id number] ####[facility] (DEFAULT)[address] [place] [address] Color (U) Yellow [facility] Comment on above: Performed By: #### 1 [id number], [id number] ####[facility] (DEFAULT)[address] [place] [address] Culture? Not Indicated Invalid Interpretation Code [facility] Comment on above: Result Comment: Resu lt created by rule GL_MAGR_ADD_UA_CULT1 Result created by rule GL_MAGR_ADD_UA_CULT Result created by rule GL_MAGR_ADD_UA_CULT1 Performed By: #### 1 [id number], [id number] ####[facility] (DEFAULT)[address] [place] [address] 05466 Glucose (U) [Mass/Vol] Negative [facility] Comment on above: Performed By: #### 1 [id number], [id number] ####[facility] (DEFAULT)[address] [place] [address] 63823 Ketones Ql (U) 40 Normal [facility] Comment on above: Performed By: #### 1 [id number], [id number] ####[facility] (DEFAULT)[address] [place] [address] 49135 Micro? Indicated Invalid Interpretation Code [facility] Comment on above: Result Comment: Resu lt created by rule GL_MAGR_ADD_UA_MICRO Performed By: #### 1 [id number], [id number] ####[facility] (DEFAULT)[address] [place] [address] 29547 UA Bilirubin Negative Normal [facility] Comment on above: Performed By: #### 1 [id number], [id number] ####[facility] (DEFAULT)[address] [place] [address] 65447 UA Blood Negative Normal NEGATIVE [facility] Comment on above: Performed By: #### 1 [id number], [id number] ####[facility] (DEFAULT)[address] [place] [address] 91192 UA Clarity CLOUDY Abnormal CLEAR [facility] Comment on above: Performed By: #### 1 [id number], [id number] ####[facility] (DEFAULT)[address] [place] [address] 95333 UA Leuk Est Negative Normal NEGATIVE [facility] Comment on above: Performed By: #### 1 [id number], [id number] ####[facility] (DEFAULT)[address] [place] [address] 92399 UA Nitrite Negative Normal NEGATIVE [facility] Comment on above: Performed By: #### 1 [id number], [id number] ####[facility] (DEFAULT)[address] [place] [address] 39455 UA pH 8.0 Normal 5-8 [facility] Comment on above: Performed By: #### 1 [id number], [id number] ####[facility] (DEFAULT)[address] [place] [address] 89150 UA Protein Negative Normal NEGATIVE [facility] Comment on above: Performed By: #### 1 [id number], [id number] ####[facility] (DEFAULT)[address] [place] [address] 62476 UA Spec Grav 1.020 Normal 1.001-1.035 [facility] Comment on above: Performed By: #### 1 [id number], [id number] ####[facility] (DEFAULT)[address] [place] [address] UA Urobilinogen 1.0 mg/dL Normal 0.2-1.0 [facility] Comment on above: Performed By: #### 1 [id number], [id number] ####[facility] (DEFAULT)[address] [place] [address] 63035 Urine Source Clean Catch Normal [facility] Comment on above: Performed By: #### 1 [id number], [id number] ####[facility] (DEFAULT)[address] [place] [address] hCG Quantitativeon hCG Quantitative <0.6 Normal 0.0-0.6 [facility] Comment on above: Result Comment: Post -Menopausal Reference Range is: 0.1-11.6 mIU/mL Performed By: #### 1 [id number], [id number], 3264937, [id number], 3080299, 4646703, 988005405, 4698101272, [id number], 8969916 ####[facility] (DEFAULT)[address] [place] [address] Provider Orderson 03-12-2024 Provider Orders [id number]#1.00OTGTIFF Normal [facility] Lab - Toxicology [facility] - Toxicology Results [id number]#1.00OTGTIFF [facility] QuantiFERON-TB Gold Pluson QuantiFERON-TB Gold Plus Negative Invalid Interpretation Code Negative [facility] Comment on above: Result Comment: No r esponse to M tuberculosis antigens detected. Infection with M tuberculosis is unlikely, but high risk individuals should be considered for additional testing (ATS/IDSA/CDC Clinical Practice Guidelines, 2017). The reference range is an Antigen minus Nil result of <0.35 IU/mL. Chemiluminescence immunoassay methodology Performed At: [address] [id number] Catherine Best PhD Ph:[phone] Performed By: #### 9 [id number], [id number], [id number] ####[facility] (DEFAULT)[address] [place] [address] QuantiFERON Incubation Incubation performed. Invalid Interpretation Code [facility] Comment on above: Result Comment: Perf ormed At: [address] [id number] Catherine Best PhD Ph:[phone] Performed By: #### 0 [id number], [id number], [id number] ####[facility] (DEFAULT)[address] [place] [address] HBSab Qnt LCon 02-14-2024 Hep B Surf Ab Quant LC 11.3 mIU/mL Invalid Interpretation Code Immunity>10 [facility] Comment on above: Result Comment: Stat us of Immunity Anti-HBs Level Inconsistent with Immunity 0.0 - 10.0 Consistent with Immunity >10.0 Performed At: [address] [id number] Catherine Best PhD Ph:[phone] Performed By: #### 7 [id number], [id number], [id number] ####[facility] (DEFAULT)[address] [place], [place] [address] Measles/Mumps/Rubella Immuni ty LCon 02-14-2024 Mumps Abs, IgG LC <9.0 Low Immune >10.9 [facility] Comment on above: Result Comment: Nega tive <9.0 Equivocal 9.0 - 10.9 Positive >10.9 A positive result generally indicates past exposure to Mumps virus or previous vaccination. Performed At: [address] [id number] Catherine Best PhD Ph:[phone] Performed By: #### 1 [id number], [id number], [id number] ####[facility] (DEFAULT)[address] [place] [address] 78443 Rubella Antibodies, IgG LC 1.95 index Invalid Interpretation Code Immune >0.99 [facility] Comment on above: Result Comment: Non- immune <0.90 Equivocal 0.90 - 0.99 Immune >0.99 Performed By: #### 4 [id number], [id number], [id number] ####[facility] (DEFAULT)[address] [place] [address] 16852 Rubeola Ab, IgG, EIA LC 39.7 AU/mL Invalid Interpretation Code Immune >16.4 [facility] Comment on above: Result Comment: Nega tive <13.5 Equivocal 13.5 - 16.4 Positive >16.4 Presence of antibodies to Rubeola is presumptive evidence of immunity except when acute infection is suspected. Performed By: #### 2 [id number], [id number], [id number] ####[facility] (DEFAULT)[address] [place] [address] 93056 Nicotine Metabolite, Urine L Con 02-14-2024 Cotinine LC Negative Invalid Interpretation Code Uubnae=360 [facility] Comment on above: Result Comment: Perf ormed At: [facility] [address] [place], [place] [id number] Apolonia Shepherd PhD Ph:[phone] Performed By: #### 1 [id number] ####[facility] (DEFAULT)[address] [place] [address] 42092 Provider Orderson 02-13-2024 Provider Orders [id number]#1.00OTGTIFF Normal [facility] MR head/brain wo/w conon MR head/brain wo/w con [facility] Main [address] [address] MRI Report Signed Patient: Saima Yancey MR#: [id number] : 1995 Acct:[id number] Age/Sex: 28 / F ADM Date: 05/27/23 Loc: MR Room: Type: [facility] Attending Dr: DOUGIE Thurston APRNC Copies to: [...] Radha Mireles M.D.05/28/2023 8:59 AM Dictation Location: [place] [address] Transcribed By: [facility] 05/28/23 0859 Dictated By: Radha Mireles MD 05/28/23 0852 Signed By: 05/28/23 0859 Normal [facility] Coding Summaryon 05-08-2023 [facility] OnbxybqwQOm6cKp+PGhlYWQ+PE1FV IMgY69lbVCxoQ8vW3BLSXbEChfqWI JYXVcFIoCdihYrZL8bxSBgFRBn IC8+OE0tFNEtQjovvBOfc9P6zBT6O 34fyk2xPOfpoVI6VSRkXuIrasewt2 hupKa9TBslGdapVnAu SHZrqC11AFN7xT14He14nCRliJZoe 3pvrGx3RxJhOFGkJRJ6yTckQHats5 AmBBNgD96mhQLez6N6 OZHfiQuznFRvIyLspYJ4sT4lMPcuk vpha3uwfamrDqr0nr70zTCxp9L1yN R5V5JgimE8ODJkhDFs ScofnQKRvF1gljkzt8jnudfqJzZuD HTyALz8UCv2BEHpuPtjFiQdUF80CZ S1FNWkatTuY7AwMRAr sJhxNxV8a8V9Jd0YU0QTRwscH7QQL UFSWTwvdGQ+QY56zy17Y8HtJtzgVg f7SGTaRGN6sOZ2hK9t HNPzJIfyu0O4xKE5E9TkrsRcma1oe 9dcCCAoZWuoO03cxLQvo8E5RHXfpS F9JAEkkZtnYiAkxD53 Oyc+PTAoxJlsi6VqIjnrf6hak4sgg Zd0TzzbZAWofaKpsBfjODW3h2SvBb 2eQMPuqAG8kVB4sK3s YfOmNoR7BTifU948YcZycTAeLofaE 76tC7LyrRX+EEQmDyd0JDNwzBerXP 4sI0JlFVGxgtvdhOSz rBysYJ6oJXKcppmmAKZluS7oJBVmM 4t2DlLcNwD5GKmkX5KkJXWecpzzBo 02mT9rXuZgCyW1IDuc R3IavrG3DQFnyTDgEPngRVN0J76nh 8Q5NEHbPEFdYLR8zJZ9xP8euUbdzm ogbGVmdDsgdmVydGlj JJgcOCnjK932EQLepRikAeNiYNvgH yBEYXRlOiAgMDEvMTEvMjAyNDwvdG Q+SETiZRH8eVtbMHYw bEZiKWthFp9fbFhlsAirPI7oBZIsu wrdKTIgdD8qTNOrlFVneHnuVX6mJF Zemkznc685XtMcGMS1 IOCzlUSvI3CmaW0cPkPbOBHbIZIbP 9ShvPCiJThoM258VEpnGnU6GEOrmo HxY9YgBSYbzYjaGcQ8 q4T0Ij3Qb8FnvogrY8TreREeRdUkI lzjTUb8K2BmLtnweCN+CA24DRQcXZ 73BYi3JLA8aGgyQGhl BGFlU7RopG9qSpKnINHvANXjQpy+P HRhYmxlIHdpZHRoPScxMDAlJyBzdH cvXC6fZk5zAWCqCEQv xWefzLImTtSdz4wzKYEfPTspLS5uh PdgZ8VzoTE2KWGhj8k5Pe98N96sS6 JvdXA+LLZsxZJ6yPY6 eX0sRsIaEqF5DWqsP823JjAllZYeY zhwg2yto8vjaAd4YqU4BAGezaAwaF pdMNP8l7KfKj81V49g RAgpZDZjKFGyXVSoJXVvuSucit1dl G9wIi8+MOImxGX0tQH7tR7mQyUlBd M4FMubC117GlYkaJSp Uzhkm8yqe7eqcTj0PcBoLWPockAtl SyqXBT0r6AdKb20U5VxxMwyo4ZbTp k3nr99gCXir6Q1jNF0 L2HlFGUqsaedcEAujHfaJZ1hXTMij mwhDLQloJ9mYQXoS9m3VtGlZbV3XX ilY7ZefhX0KSMrqAHc AUDeoOQVsX1uoipxg7lifqjuPaSbB RPoYOz8FTa6BOQkgGyuElXdYEI8No D2MXQ5nOKzvP6uvHvg qfmawI6qWgp+NDK1kXYwsJVXUO7gN jwvdGQ+TGNaORS6pVakSAmzGZYvrY 1iRNNbX1s8JjBvOyW2 BNqmY3IggyJ4SXBwkQKdQQDloYIOo S8dcczgl6qpfxsrFdTnMWWdCMa7WY i7YPNcoIdcDjPoHWP4 KuP1NST4qPLtlU8fxOxnqzofyF7kY yc+GhfmhEvnJZB0TRx1S9CqYtm5WZ YnqZscNP9ddHOnVQsy Uz4mdAfcqYdtDR5hKFWxcsppy073U rDeq2vqTCZipFOcXGvrCTE8C13hg7 J7KBUsIMCjZEL7aZN5 aA9hyPljbqkcaVWfdZchhzWtdVdsQ GpcYVlcR962WADkiCxwCsJeDAk1C4 JiFhb8XVUivOqqLE6w kJNmRBsgRh6keYnyjKumCY7rLJOfo uwbv037JeInp3pxURSomUMbBSfgEH I8V24zm2I2HUHxHKMg UUY1cGU6rM2yzCnslylnlMOweHuth eSjbRfpNEadVKraT924LVCxqImkKj HoiEl5W9GdCwo7OGVl yPmyRC7hjPZkKTjkXp6hvRtjpRvcE D0vPVHketoqj544QiRak2qfTWOdfB FyKFvjNCC3B51lr4A5 NVXiNBFhGIP6kRM9kW4oyUvqeemyf UPqnYxoutOzzIopDAmqOVfxK427PK RvcDsnPlBhdGllbnQg VXsiYUd7K0DmCfcqvWZ+ZS19GXGbT T71iEDchAWwr7dilSv0EjRgXDEpWM Z6dPowPRqlj2OhXTRh S61esLWbv5J9MWIzrErqxDVvCxImv PU7aD1cRUvvczruj3uwwvkoJsnpv1 ebla36tN73X83iYQja TKXwCPBzVVQaEXKqmQsokf5nqD3wH i8+RNZgqHD7gUQ4gJ9xPAFdLmO1XZ aqL079ZzOujQYuNvxg o6ldb8yvsJk4SkX2OBOmxaJlpSfdE UT6l2YgVj08R98vFBjqBTPwUTMpRG PrRTUcaYtplm2toP6a Ii8+WYEkbBR8kXH1gU7nEpVyZfS1E KtuP834SpElmGOeWyouZ69jX6MlpL A+KQHeQxx6TLKsqLpq QQ4wrZPxCFohWv2nXDR5VaYwNgVrO PgbK9CsGQPmbnagxdzfoUZ7GMPuNE IlcM10Af8enNbiFWDc mSKKqY7bjkyjk0kufttcSrHoBHAxQ Cy5YUc7RWZahIutSiAiMCI3EeY4WE Y1lNOcuO2svHcdjydi qX1hR7OeQITzxzwxFn16aM2kByBoF mZ3QTubBfg+WMCUVRPXQeprF6qOMD VNOWxKCj53L5MuCdp6 MRJcbYctLC9ebDDhVQsuFz1trVsym WvfHY2rSGBfxyysCNMwkM6sTKMtyW IbiCysCI1yRNMvtqvw r118WzThKJT9RWTqlQVrD9XqtO2qD tChQAThNZHaC8ZqjNTjFYtfJ926UZ rpTtV6UZYmhpMxG1Bz CQAglUsnBfL4p5Q0Tt5iIi9iCk4fQ Ec4CE06NX15uHIzp2J7yKP5B2RrBT VlkkswfqovqAY9BSUm PALkmO51gRGcQPjvDp5td5M2x666Z TRhIKRatF12Gx7aoJjtLNJwgXOWzU 5tcxxud8owargzBuKq NRXqADp5VEe4AOBdvXdiWqQaCPX3R uA4PCC3aYZugT8zyHpjocgtjJ5pJr c+XqRhRLZlljV7A2Ds Rta7WRIjbMssWD5raTRnMYrcYt5de UzmaXcmMF2rLOTipmrdTMOgnI0pOG OduMZdxCrgHP7aOGCe aosgt650WfMwFID5XMMpjIIuB8Xtb E5iSxTgRXYpRLNqB1PhtRUeIGegQ2 48NZstLfT7DJLjzqFo P5AiVSFqaJebGrP0w7U1Dw1TBZ2GH ZD4Y5JzVgz9FXCvxNuvKR3izTFnNM maRj2gdGkixKdcLP1n JTGghycqERXghU9eWRToqWNgbVgkD O3iBDUlftdrs708WaLzTID0MWOuqO VzY1RflZ5jAaLyWQGg UXJkS3CblKYtHQyaO538BEblKdK2H HDkunAmU0AdLJDtvQxvPmH4g7W1Al 8GrULeJ7MdT9b6N0Gs PjwvdHI+IC04CFOmDK90bKSflJOot 4dwpDk4IoQoWLNuIOR2gVjoKBvuz1 HiDDYtJ86vxDEfa7A9 ELAlfUaxgVWiFfDhdDL4uZ0hNAwak nkik5vhkqgtLuxlv2qwuy39nN53Y7 9sIHdpZHRoPSIzMCUi ABDvxWmzww5pbX5wAa6+MCUhhRY9l OC1fL4mOgQfHxO0IHlpI102JsJeoN YvJnbdf4sbv5ufzNy1 LsFcVOWppfUfhHzaGCB8q8FuAx53E 29sIHdpZHRoPSIyMCUiIHZhbGlnbj 4nlX1qGo9+UI6qj2oy tt61jX98pZM+RWXuJFP4iGplZHnkQ SBhyA0vWProYrL6LXKuZeGbsX65nD OhDTzvWx5jzDobkXgl BH6bUTWqpuxpp830MrQlo3wkBWMus LKqMHbySLD7X07nj8A4OMTkLHVrLD U7nEP4yQ2scGlzkvrp oWHxiEgnuxEtdCbrZLtbDFwbF570U FBglJdwMjQsaZFhY5ddytXIOC6qQk wvdGQ+YZGlOCH9oPjh CDwrDKWeyO9cIJJtR1g8BvJuBrJ3U HcyR5PovkX5GUSbpJHlAOJicMGDrS 8voiskh0bloxwrUpFg SBSzTUz1PKh7KFRznMnlGlNhDWD8C jY2BFU5wLDtxZ8peEelmvfkgR8qBd c+RklOOjwvdGQ+PHRk QLX9bMcrOVaeZNOsyW3eTNVnZ5y6D sEuMrE8NMmlB7HvnfM8NVMkpUGrIX EmlXHSnX4bdeove7hi oeagVaDlQBZpFOj3XQf1KJKvvGnjW lNwYZD1MjM7TRI4aIZxiI9rtRsfme abeY6aHpv+TVJOOjwv dGQ+ESWpBZO6mIkuEBeuZKUgiE3pW WObU5t8LbCwGcR6TXpcL7TtyzD8MT RzlBSgQYMevVTJyC5s kdcjp1imekrlZfVvBCLkUQd0PYr0J FOskNxyRiTiEOV6KqP5VCW1jXEqxK 6rlQdqsjebbT6hQna+ MBP8PEI9YB72RO23X2IvBrnplAVcp +PHRhYmxlIHdpZHRoPScxMDAlJy BdcRveTA8xFj4uYJQk LWN (more content not included)... [facility] Electronic Messagingon 04-27 Electronic Messaging --- --- --- --- --- --- --- --- --- From: Directandrea ([email or web address]), Directtest To: SAIMA YANCEY Sent: 04/27/23 05:06:20 AM EST Subject: Discharge Summary Ready to View A summary regarding your recent visit is available in the Documents section of your Health Record. [facility] ED Clinical Summaryon 2022 ED Clinical Summary [facility] - Emergency Department [address] [place] [address] ED Clinical Summary PERSON INFORMATION Name: SAIMA YANCEY Age: 28 Years Sex: FEMALE : 1995 MRN: Acct#: Visit Reason: Headache; HEADACHE, NECK PAIN Arrival: 04/26/2023 07:37:50 Discharge: 04/26/2023 09:32:00 LOS: 000 01:55 Check In: 04/26/2023 07:37:50 Checkout:04/26/2023 09:32:00 Address: [address] [place] [id number] PCP: Amanda Samuel CNP PROVIDER INFORMATION Provider [...] Headache Follow-Up: With: Address: When: Amanda Samuel [address] [place] [id number] [facility] (1) Within 3 to 5 days Comments: Call for follow up appointment DIAGNOSIS: Migraine Patient Understands: Yes - Patient/family/caregiver verbalizes understanding of instructions given Comment: [facility] ED Note-Nursingon 04-26-2023 ED Note-Nursing Patient arrives with c/o headache that started around 1700 yesterday. Pain rated 6/10. Patient last took ibuprofen 2 hrs prior to arrival. States nausea and eye pressure. States she started Addipex 3 weeks ago no other medical hx. Normal [facility] ED Patient Summaryon 023 ED Patient Summary [facility] - Emergency Department [address] [place] [address] PATIENT DISCHARGE INSTRUCTIONS Patient Information Name: SAIMA YANCEY Age: 28 Years Date of : 1995 Reason For Visit: Headache; HEADACHE, NECK PAIN Arrival Time: 04/26/2023 07:37:50 Primary Care Physician: Amanda Samuel CNP Attending Physician: Anthony Rios MD Comment: Visit Diagnosis: Diagnoses This Visit Headache ([id number]) Migraine (G43.909) The Pharmacy at [facility] is open Friday through Friday from [...] alcohol and/or drug addiction problems; contact the [facility] 18/11 Crisis Hotline -Text 3OCOB ri [phone]. If you received any narcotics, sedation, or [...] With: Address: When: Amanda Samuel [address] [place], [place] [id number] Business (1) Within 3 to 5 days Comments: Call for follow up appointment Medication Information: The exam and treatment you received today in the [facility] Emergency Department were for an urgent problem and are not intended as complete care. It is important for you to follow up with a doctor, nurse practitioner, or physician?s general surgery physician assistant for ongoing care. If your symptoms [...] so we can reach you if necessary. [facility] Emergency Department has provided you with a complete list of medications post discharge. Please inform your curtain stretcher/provider of your visit and for further instruction [...] Eating or (more content not included)... Normal [facility] PROGESTERONEon 07-17-2022 Progesterone <0.[address] [facility] Comment on above: Result Comment: Foll icular phase 0.1 - 0.9 Luteal phase 1.8 - 23.9 Ovulation phase 0.1 - 12.0 First trimester 11.0 - 44.3 Second trimester 25.4 - 83.3 Third trimester 58.7 - 214.0 Postmenopausal 0.0 - 0.1 Performed By: #### P BUDES #### [facility] [address] [place] [address] Dr. Aaron Flores PREG QUANT HCGon 07-15-2022 HCG QUANT <[address] [facility] Comment on above: Performed By: #### P REGQNT #### [facility] [address] [place] [address] Dr. Aaron Flores HCG RANGE SEE BELOW Normal [facility] Comment on above: Result Comment: 5-50 0.2-1 WEEK 50-500 1-2 WEEKS 100-5,000 2-3 WEEKS 500-10,000 3-4 WEEKS 1,000-50,000 4-5 WEEKS 10,000-100,000 5-6 WEEKS 15,000-200,000 6-8 WEEKS 10,000-100,000 2-3 MONTHS Performed By: #### P REGQNT #### [facility] [address] [place] [address] Dr. Aaron Flores PREG QUANT HCGon 06-05-2022 HCG QUANT <[address] [facility] Comment on above: Performed By: #### P REGQNT #### [facility] [address] [place] [address] Dr. Aaron Flores HCG RANGE SEE BELOW Normal [facility] Comment on above: Result Comment: 5-50 0.2-1 WEEK 50-500 1-2 WEEKS 100-5,000 2-3 WEEKS 500-10,000 3-4 WEEKS 1,000-50,000 4-5 WEEKS 10,000-100,000 5-6 WEEKS 15,000-200,000 6-8 WEEKS 10,000-100,000 2-3 MONTHS Performed By: #### P REGQNT #### [facility] [address] [place] [address] Dr. Aaron Flores PROGESTERONEon 05-08-2022 Progesterone 9.0 ng/mL Normal [facility] Comment on above: Result Comment: Foll icular phase 0.1 - 0.9 Luteal phase 1.8 - 23.9 Ovulation phase 0.1 - 12.0 First trimester 11.0 - 44.3 Second trimester 25.4 - 83.3 Third trimester 58.7 - 214.0 Postmenopausal 0.0 - 0.1 Performed By: #### P BUDES #### [facility] [address] [place] [address] Dr. Aaron Flores PREG QUANT HCGon 05-06-2022 HCG QUANT 1 mIU/mL Normal [facility] Comment on above: Performed By: #### P REGQNT #### [facility] [address] [place] [address] Dr. Aaron Flores HCG RANGE SEE BELOW Normal [facility] Comment on above: Result Comment: 5-50 0.2-1 WEEK 50-500 1-2 WEEKS 100-5,000 2-3 WEEKS 500-10,000 3-4 WEEKS 1,000-50,000 4-5 WEEKS 10,000-100,000 5-6 WEEKS 15,000-200,000 6-8 WEEKS 10,000-100,000 2-3 MONTHS Performed By: #### P REGQNT #### [facility] [address] [place] [address] Dr. Aaron Flores PROGESTERONEon 03-10-2022 Progesterone <0.1 Normal [facility] Comment on above: Result Comment: Foll icular phase 0.1 - 0.9 Luteal phase 1.8 - 23.9 Ovulation phase 0.1 - 12.0 First trimester 11.0 - 44.3 Second trimester 25.4 - 83.3 Third trimester 58.7 - 214.0 Postmenopausal 0.0 - 0.1 Performed By: #### P SPRING #### [facility] [address] [place] [address] Dr. Aaron Flores PROGESTERONEon 01-04-2022 Progesterone 0.2 ng/mL Normal [facility] Comment on above: Result Comment: Foll icular phase 0.1 - 0.9 Luteal phase 1.8 - 23.9 Ovulation phase 0.1 - 12.0 First trimester 11.0 - 44.3 Second trimester 25.4 - 83.3 Third trimester 58.7 - 214.0 Postmenopausal 0.0 - 0.1 Performed By: #### P SPRING #### [facility] [address] [place] [address] Dr. Aaron Flores CBC AUTO DIFFon 09-14-2021 BASO # 0.0 103/ul Normal 0.0-0.1 [facility] Comment on above: Performed By: #### C BC #### [facility] [address] [place] [address] Dr. Aaron Flores Basophils/100 WBC (Bld) 0.4 % Normal 0.2-2.0 [facility] Comment on above: Performed By: #### C BC #### [facility] [address] [place] [address] Dr. Aaron Flores EO # 0.1 103/ul Normal 0.0-0.7 [facility] Comment on above: Performed By: #### C BC #### [facility] [address] [place] [address] Dr. Aaron Flores Eosinophils/100 WBC (Bld) 1.1 % Normal 0.9-7.0 [facility] Comment on above: Performed By: #### C BC #### [facility] [address] [place] [address] Dr. Aaron Flores Erythrocyte distribution width (RBC) [Ratio] 11.9 % Normal 11.0-15.0 [facility] Comment on above: Performed By: #### C BC #### [facility] [address] [place] [address] Dr. Aaron Flores Hematocrit (Bld) [Volume fraction] 46.0 % Normal 36.0-48.0 [facility] Comment on above: Performed By: #### C BC #### [facility] [address] [place] [address] Dr. Aaron Flores Hemoglobin (Bld) [Mass/Vol] 15.1 g/dL Normal 12.0-16.0 [facility] Comment on above: Performed By: #### C BC #### [facility] [address] [place] [address] Dr. Aaron Flores IG # 0.00 10e3/ul Normal 0.00-0.03 [facility] Comment on above: Performed By: #### C BC #### [facility] [address] [place] [address] Dr. Aaron Flores IG % 0.0 % Normal 0.0-0.5 [facility] Comment on above: Performed By: #### C BC #### [facility] [address] [place] [address] Dr. Aaron Flores LYMPH # 1.7 103/ul Normal 1.2-3.8 [facility] Comment on above: Performed By: #### C BC #### [facility] [address] [place] [address] Dr. Aaron Flores Lymphocytes/100 WBC (Bld) 31.9 % Normal 20.5-60.0 [facility] Comment on above: Performed By: #### C BC #### [facility] [address] [place] [address] Dr. Aaron Flores MANUAL DIFF REQ NO Normal [facility] Comment on above: Performed By: #### C BC #### [facility] [address] [place] [address] Dr. Aaron Flores MCH (RBC) [Entitic mass] 29.7 pg Normal 26.7-34.0 [facility] Comment on above: Performed By: #### C BC #### [facility] [address] [address] [address] Aaron Flores MCHC (RBC) [Mass/Vol] 32.8 g/dL Normal 29.9-35.2 [facility] Comment on above: Performed By: #### C BC #### [facility] [address] [place] [address] Dr. Aaron Flores MCV (RBC) [Entitic vol] 90.6 fL Normal 81.0-99.0 [facility] Comment on above: Performed By: #### C BC #### [facility] [address] [place] [address] Dr. Aaron Flores MONO # 0.3 103/ul Normal 0.3-0.8 [facility] Comment on above: Performed By: #### C BC #### [facility] [address] [place] [address] Dr. Aaron Flores Monocytes/100 WBC (Bld) 5.4 % Normal 1.7-12.0 [facility] Comment on above: Performed By: #### C BC #### [facility] [address] [place] [address] Dr. Aaron Flores NEUT # 3.3 103/ul Normal 1.4-6.5 [facility] Comment on above: Performed By: #### C BC #### [facility] [address] [place] [address] Dr. Aaron Flores Neutrophils/100 WBC (Bld) 61.2 % Normal 43.0-75.0 [facility] Comment on above: Performed By: #### C BC #### [facility] [address] [place] [address] Dr. Aaron Flores Platelet mean volume (Bld) [Entitic vol] 11.9 fL Normal 9.5-13.5 [facility] Comment on above: Performed By: #### C BC #### [facility] [address] [place] [address] Dr. Aaron Flores PLT 182 103/ul Normal 150-450 [facility] Comment on above: Performed By: #### C BC #### [facility] [address] [place] [address] Dr. Aaron Flores RBC 5.08 106/ul Normal 4.20-5.40 [facility] Comment on above: Performed By: #### C BC #### [facility] [address] [address] [address] Aaron Flores WBC 5.4 103/ul Normal 4.0-11.0 [facility] Comment on above: Performed By: #### C BC #### [facility] [address] [place] [address] Dr. Aaron Flores PREG QUANT HCGon 09-14-2021 HCG QUANT 1 mIU/mL Normal [facility] Comment on above: Performed By: #### P REGQNT #### [facility] [address] [place] [address] Dr. Aaron Flores HCG RANGE SEE BELOW Normal [facility] Comment on above: Result Comment: 5-50 0-1 WEEK 40-300 1-2 WEEKS 100-1,000 2-3 WEEKS 500-6,000 3-4 WEEKS 5,000-200,000 1-2 MONTHS 10,000-100,000 2-3 MONTHS 3,000-50,000 2ND TRIMESTER 1,000-50,000 3RD TRIMESTER Performed By: #### P REGQNT #### [facility] [address] [place] [address] Dr. Aaron Flores Covid-19 PCR (CVDTB)on 08-26 SARS-CoV-2 (COVID-19) RNA ROBINA+probe Ql (Unsp spec) Not detected Normal NOT DETECTED [facility] Comment on above: Result Comment: This test is not yet approved or cleared by the [place] FDA. When there are no FDA-approved or cleared tests available, and other criteria are met, FDA can make tests available under an emergency access mechanism called an Emergency Use Authorization (EUA). The EUA for this test is supported by the Preemption of Health and Human Service's (HHS's) declaration [...] SARS-CoV-2. Performed By: #### P ROGES #### [facility] [address] [address] [address] Aaron Flores PAP ACOG PANEL 2: 21 to 29on 08-27-[address] [facility] Comment on above: Performed By: #### P ROGES #### [facility] [address] [address] [address] Aaron Flores Age Gdln ACOG Testing [facility] Comment on above: Performed By: #### P ROGES #### [facility] [address] [place] [address] Dr. Aaron Flores DIAGNOSIS: Comment [facility] Comment on above: Result Comment: NEGA TIVE FOR INTRAEPITHELIAL LESION OR MALIGNANCY. Performed By: #### P ROGES #### [facility] [address] [place] [address] Dr. Aaron Flores Methodology: Comment [facility] Comment on above: Result Comment: This liquid based ThinPrep(R) pap test was screened with the use of an image guided system. Performed By: #### P ROGES #### [facility] [address] [place] [address] Dr. Aaron Flores Note: Comment [facility] Comment on above: Result Comment: The Pap smear is a screening test designed to aid in the detection of premalignant and malignant conditions of the uterine cervix. It is not a diagnostic procedure and should not be used as the sole means of detecting cervical cancer. Both false-positive and false-negative reports do occur. . Performed By: #### P ROGES #### [facility] [address] [place] [address] Dr. Aaron Flores Performed by: Comment [facility] Comment on above: Result Comment: Larissa Lopze, Supervisory Special Education Math Teacher (ASCP) Performed By: #### P SPRING #### [facility] [address] [address] [address] Aaron Flores Reflex Criteria: Comment Normal [facility] Comment on above: Result Comment: The HPV DNA reflex criteria were not met with this specimen result therefore, no HPV testing was performed. . Performed By: #### P SPRING #### [facility] [id number] Aaron Flores Specimen adequacy: Comment Normal [facility] Comment on above: Result Comment: Sati sfactory for evaluation. Endocervical and/or squamous metaplastic cells (endocervical component) are present. Performed By: #### P SPRING #### [facility] [address] [address] [address] Aaron Flores CNOVon 04-11-2017 CNOV Office Visit (EXPNOL) -SAIMA YANCEY ([id number]) 1995 [facility] Time Provider Mbdxkqpggy61/15/17 7:00 PM JAZMIN NIEVES) EXPNOL During your visit today, we recorded the following information about you: Temperature Pulse Blood pressure Weight 98.2 degrees 98/minute 122/67 104.3 kgJazmin Nieves PA-C 04/11/2017 7:35 PM SignedHPI Comments: [facility]- ANDquot; mouth issue ANDquot;HPI- Asima Christian is a 22 year old female who [...] history is provided by the patient. No medical language specialist was used.Review of SystemsConstitutional: Negative for fever.HENT: [...] pain right side of mouth/gum area x fridayPr Visit Diagnosis:Oral aphthous ulcer [K12.0]Order(s):benzocaine (ORABASE, BENZOCAINE,) [...] of Service: EST PATIENT VISIT LEVEL 3 [[id number]]Disposition: Return if symptoms worsen or fail to improve.Follow-up and Disposition History RecordedEncounter Number: [id number] Status:Closed by JAZMIN NIEVES PA-C on 04/11/17 [facility] PROGRESSon 04-11-2017 PROGRESS HNO ID: [id number] thor: Jazmin Amezcuaervice: (none)Author Type: Physician AssistantType: Progress NotesFiled: 04/11/2017 7:35 PMNote Text:HPI Comments: [facility] Visit[facility]- mouth issue HPI- Saima Yancey is a 22 year old female who [facility] with concerns of R lower gum [...] history is provided by the patient. No medical language specialist was used.Review of SystemsConstitutional: Negative for fever.HENT: Negative for congestion.Respiratory: Negative for cough.Blood pressure 122/67, pulse 98, temperature 36.8 ?C (98.2 ?F),temperature source Oral, weight 104.3 kg (230 lb), last menstrual kiydzd3904/21/2016, not currently .Physical ExamConstitutional: She is oriented [...] foods until ulcer resolveArmida Nieves PA-C Normal [facility] CNOVon 03-29-2017 CNOV Office Visit (EXPNOL) -SAIMA YANCEY ([id number]) 1995 FDate Time Provider Ysgicfdwzo01/2/17 8:35 AM YAAKOV RIDLEY (SUSANA) EXPNOL During [...] ICD10: N92.6- test negative- Follow up with VP COMPLIANCE/PCP if irregular menses continues- HCG QUAL UR B/Yevgeniy Weldon, STEPHON, PRESETTER OPERATOR 03/29/2017 9:09 AM SignedEXPRESS CARE PATIENT [...] the person should be evaluated by an category planner.Contact lens wearers ? People who wear contact lenses should be evaluated by [facility] provider before treatment begins; this [...] of eye drops or ointment [facility] This treatment helps to prevent the spread [...] improve within twoweeks, an examination with an category planner may be recommended.CONJUNCTIVITIS PREVENTIONBacterial and viral conjunctivitis [...] right eye [H10.31] Other Visit Diagnosis:Irregular menses [N92.6]Order(s):[facility] QUAL B/O [[id number]] Order #: [id number] tobramycin (TOBREX) 0.3 % ophthalmic solutionUse 1-2 [...] MCG-35 MCG/24 HR TRANSDERMAL PATCH >> Amina Axel Ma 03/29/2017 8:51 AM >> AMINA REYNA [...] the person should be evaluated by an category planner. Contact lens wearers ? People who wear [...] within two weeks, an examination with an category planner may be recommended. CONJUNCTIVITIS PREVENTION Bacterial and [...] by YAAKOV RIDLEY CNP on 03/29/17 Normal [facility] PROGRESSon 03-29-2017 PROGRESS HNO ID: [id number] thor: Yaakov (Sales Floor Manager) STEPHON RidleyService: (none)Author Type: Nurse PractitionerType: Progress [...] ICD10: N92.6- test negative- Follow up with VP COMPLIANCE/PCP if irregular menses continues- HCG QUAL UR B/Maya Ridley CNP Normal [facility] CNOVon 01-14-2017 CNOV Office Visit ([facility]) -SAIMA YANCEY ([id number]) 1995 FDate Time Provider Department01/14/17 9:00 AM JAMES JONES) [facility] During your visit today, we recorded the following information about you: Pulse Blood pressure 94/minute 120/77James Jones PA-C 01/14/2017 10:01 AM [facility] Follow Up VisitSept2016 - 9:14 AMSUBJECTIVE:Saima Yancey a 21 year old [facility], accompanied by self only, [...] supervised home exercise program (HEP): No 5. Battery Tester: NoPassive conservative therapy in the last six months (see below) 1. Medical devises: No 2. Acupuncture: No 3. Tens unit: No 4. Prescription pain medication: Tramadol 5. NSAIDS: NoDo you fell safe at home? YesRisk assessment at risk due to fall: NONEKalie NoriegaSt. [facility] 2016 - Time: 9:20 AMThe subjective information: [...] 2017 by Masood Jones PA-C- Ran via [employer] web site - 2 scripts for Tramadol [...] verbalized understanding.ISIDRO Cantu-CSeptember 2016Referring Provider: AGAPITO TORRES [[id number]]Allergies As of Date: 01/14/2017(No Known Allergies)Date Reviewed: [...] by JAMES JONES PA-C on 01/14/17 Normal [facility] PROGRESSon 01-14-2017 PROGRESS HNO ID: [id number] thor: James Nevarez (Phillip) Bennettervice: (none)Author Type: Physician AssistantType: Progress NotesFiled: 01/14/2017 10:01 AMNote Text:[facility] Follow Up VisitS2016 - 9:14 AMSUBJECTIVE:Saima Yancey a 21 year old [facility], accompanied by self only, [...] supervised home exercise program (HEP): No 5. Battery Tester: NoPassive conservative therapy in the last six months (see below) 1. Medical devises: No 2. Acupuncture: No 3. Tens unit: No 4. Prescription pain medication: Tramadol 5. NSAIDS: NoDo you fell safe at home? YesRisk assessment at risk due to fall: NONEKalie Daniel [facility] 2016 - Time: 9:20 AMThe subjective information: including chief complaint, past medicalhistory and review of systems, was explored in detail with the patient andedited as needed and is complete.[place] [place] Examination:BP 120/77 Pulse 94 SpO2 97% [...] 2016 by James Jones PA-C- Ran via [employer] web site - 2 scripts for Tramadol [...] above and verbalizedunderstanding.ISIDRO Toledo ra-CSeptember 2016 [facility] CNDSNOTEon 12-23-2016 CNDSNOTE Discharge Note (enc) (PTFVGE) -SAIMA YANCEY ([id number]) 1995 FDate Time Provider Department12/23/16 TAMIKO SHIELDS (PT) PTFVGE During your visit today, we recorded the following information about you:Tamiko Shields, PT 12/23/2016 6:52 PM Signed[facility] TH[facility]PHYSICAL THERAPY DISCONTINUANCE OF CAREPlan of Care Period:Initial Evaluation Date: 09/09/2016Last Visit Date: 10/07/2016Therapy Program: The following is a summary of the interventions provided forthis episode of care; HEP, Individual PT, Modalities and Therapeutic exercise.Assessment:The following is the goal status:As of last session on 10/07/2016. Patient was to return to MD for furtherrecommendation and has not returned for further PT.[place] in home exercise program. PARTIALLY METPatient will [...] Status:Closed by TAMIKO SHIELDS on 12/23/16 [facility] PROGRESSon 12-23-2016 PROGRESS HNO ID: [id number] thor: Tamiko (Pt) Staci: (none)Author Type: Physical TherapistType: Progress NotesFiled: 12/23/2016 6:52 PMNote Text:[facility] THERAPYPHYSICAL THERAPY DISCONTINUANCE OF CAREPlan of Care Period:Initial Evaluation Date: 09/09/2016Last Visit Date: 10/07/2016Therapy Program: The following is a summary of the interventions providedfor this episode of care; HEP, Individual PT, Modalities and Therapeuticexercise.Assessmen t:The following is the goal status:As of last session on 10/07/2016. Patient was to return to MD for furtherrecommendation and has not returned for further PT.[place] in home exercise program. PARTIALLY METPatient will [...] orscheduled additional follow-up appointments.Tamiko Shields, PT [facility] HISTORY PHYSICALon 7 HISTORY PHYSICAL HNO ID: [id number] thor: Diego Muller) MooreService: Pain ManagementAuthor Type: [...] MEDICAL HISTORYDiagnosis Date- NEGATIVE MEDICAL HISTORYPAST SURGICAL GMFTMYB44/2017: DANDC (MISSED AB 1ST TRIMESTER)No date: NONEPrior [...] December 11, 2016 : 2:13 PM PAGER: [facility] OPERATIVE NOon 12-11-2016 OPERATIVE NO HNO ID: [id number] thor: Agapito Bearervice: Pain ManagementAuthor Type: PhysicianType: Operative ReportFiled: 12/11/2016 3:24 PMNote Text:Patient Name Medical Record #Saima Yancey [id number] of : 1995Admit Date: December 11, 2016Sex / Age: female/21 year oldDischarge Date: December 11, 2016Date: December 11, 2016Attending Physician: GAVINO Alvarezervice: OPERATIVE REPORTLOG ID: [id number]/Procedure Date: 12/11/2016Incision/Procedure Start Time: 3:12 PMIncision Close/Procedure [...] 2 mL of a bupivacaine 0.5% and Vdgrobk99.33 mg was injected at each of the [...] to home in stable condition.Myke Alvarez 2016 [facility] CNOVon 11-18-2016 CNOV Office Visit ([facility]) -SAIMA YANCEY ([id number]) 1995 FDate Time Provider Department11/18/16 10:20 AM AGAPITO TORRES [facility] During your visit today, we recorded the following information about you: Pulse Blood pressure 77/minute 117/73Agapito Torres MD 11/18/2016 2:12 PM Signed[facility] [place] [facility] Initial EvaluationJuly 2016 - 11:03 AMThis appointment was requested by Self, for my medical opinion regarding? theevaluation and management of the patient's Saima Yancey problems, and myfinal recommendations will be communicated to the requesting health careprovider by way of the shared medical record for internal providers or lettervia the [employer] Service for external providers.SUBJECTIVE:Saima Yancey a 21 year old presents to [facility] Management[facility], accompanied by self only, [...] MEDICAL HISTORYDiagnosis Date- NEGATIVE MEDICAL HISTORYPAST SURGICAL ISFHLLU98/2017: DANDamp;C (MISSED AB 1ST TRIMESTER)No date: NONESocial [...] supervised home exercise program (HEP): No 5. Battery Tester: NoPassive conservative therapy lasting 6 weeks in [...] No controlled substance prescriptions werereported.- 11/18/2016 by NILA CanutTONY ANDamp; ASSESSMENT: James Jones PA-C was present [...] Torres M.D.November 18, 2016Referring Provider: JORDI JACKSON [[id number]]Allergies As of Date: 11/18/2016(No Known Allergies)Date Reviewed: [...] by AGAPITO TORRES MD on 11/18/16 [facility] HOSPon 11-18-2016 HOSP Patient:Emilee Yancey by LMRN: [...] for the following basenames: K,HCTProgress Notes ([facility]):Agapito Torres MD 11/18/2016 2:12 PM SignedF[facility]or[facility] Initial EvaluationJuly 2016 - 11:03 AMThis appointment was requested by Self, for my medical opinion regarding? theevaluation and management of the patient's Saima Yancey problems, and myfinal recommendations will be communicated to the requesting health careprovider by way of the shared medical record for internal providers or lettervia the [employer] Service for external providers.SUBJECTIVE:Saima Yancey a 21 year old presents to [facility] Pain ManagementDepartment, accompanied by self only, [...] MEDICAL HISTORYDiagnosis Date- NEGATIVE MEDICAL HISTORYPAST SURGICAL OGLBQTS88/2017: DANDC (MISSED AB 1ST TRIMESTER)No date: NONESocial [...] supervised home exercise program (HEP): No 5. Battery Tester: NoPassive conservative therapy lasting 6 weeks in [...] Torres M.D.November 18, 2016Previous VersionProgress Notes ([facility]):Nick Kaur Ma 11/11/2016 9:57 AM SignedI [...] message, Letter sent out on11/11/16.Nick Aime Rao [facility] PROGRESSon 11-18-2016 PROGRESS HNO ID: [id number] thor: Agapito Mayer: (none)Author Type: PhysicianType: Progress NotesFiled: 11/18/2016 2:12 PMNote Text:[place] [facility] Initial EvaluationJuly 2016 - 11:03 AMThis appointment was requested by Self, for my medical opinion regarding?the evaluation and management of the patient's Saima Yancey problems,and my final recommendations will be communicated to the requesting healthcare provider by way of the shared medical record for internal providersor letter via the [employer] Service for external providers.SUBJECTIVE:Saima Yancey a 21 year old presents to [facility] PainManagement Department, accompanied by self only, [...] MEDICAL HISTORYDiagnosis Date- NEGATIVE MEDICAL HISTORYPAST SURGICAL ZHIMANN75/2017: DANDC (MISSED AB 1ST TRIMESTER)No date: NONESocial [...] supervised home exercise program (HEP): No 5. Battery Tester: NoPassive conservative therapy lasting 6 weeks in [...] 2016Physical Examination:BP 117/73 Pulse 77 SpO2 98% [facility] 04/21/2016General: well appearing, alert, in no acute [...] No controlled substance prescriptionswere reported.- 11/18/2016 by NILA CantuTONY AND ASSESSMENT: James Jones PA-C was present [...] Yancey's care.Agapito Torres M.D.November 18, 2016 [facility] -SAIMA YANCEY ([id number]) 1995 FDate Time Provider Department11/11/16 AGAPITO TORRES [facility] During your visit today, we recorded the [...] Reviewed: 11/06/2016Reviewed by: Ronda Acevedo - Jenn PalaciosReniesha for Visit: Appointment [[id number]]Prescriptions as of 11/11/2016 [...] FOR* Right knee pain [M25.561] INVALID FOR*Letter TextBoston [facility] Pain [address], [place] [address]Gmdocm: [phone]: [phone] 2016Dear Ms. Saima Nevarez Yancey,This is a reminder letter regarding your appointment with Melissa Altman M.D. at [facility] Management Department on 10/19/16 at [...] you have previously been seen by a [facility] Pain Management provider you will need [...] with your currentprescribing physician.Thank you for you cooperation,[facility] Pain Management TeamEncounter Number: [id number] Status:Closed by NICK KAUR MA on 11/11/16 [facility] CNOVon 11-06-2016 CNOV Office Visit ([facility]) -SAIMA YANCEY Roque ([id number]) 1995 [facility] Time Provider Department11/06/16 1:20 PM JORDI JACKSON ORMIDDina During your visit today, we recorded the following information about you:Jordi Jackson MD 11/06/2016 9:08 PM SignedInterval History: Saima Nevarez Christian returns today for evaluation of right kneepain [...] withsquatting here today.Imaging: Magnetic Resonance Imaging from [facility] is personallyreviewed by me and demonstrates [...] me on an as-needed basis only.Jordi Jackson, PETEReferring Provider: JOSE HASSAN [[id number]]Allergies As of Date: 11/06/2016(No Known Allergies)Date Reviewed: 11/06/2016Reviewed by: Ronda Acevedo - Jenn AssessedReason for Visit: Right Knee Pain [1209]Primary Visit Diagnosis:Patellofemoral stress syndrome of right knee [M22.2X1] Other Visit Diagnosis:Chronic pain of right knee [M25.561, G89.29]Order(s):CONSULT TO PAIN MGT ANESTHESIA [19990803] Order #: [id number]: 1Prescriptions as of 11/06/2016 Sig: DICLOFENAC 20 [...] INVALID FOR*Follow-up and Disposition History RecordedEncounter Number: [id number] Status:Closed by JORDI JACKSON MD on 11/06/16 [facility] PROGRESSon 11-06-2016 PROGRESS HNO ID: [id number] thor: Jordi Roervice: (none)Author Type: PhysicianType: Progress [...] squatting here today.Imaging: Magnetic Resonance Imaging from [facility] is personallyreviewed by me and demonstrates [...] damian as-needed basis only.Jordi Jackson MD [facility] CNOVon 11-01-2016 CNOV Office Visit ([facility]) -SAIMA YANCEY ([id number]) 1995 [facility] Time Provider Department11/01/16 11:15 AM JOSE HASSAN [...] MEDICAL HISTORYDiagnosis Date- NEGATIVE MEDICAL HISTORYPAST SURGICAL JYJRZNA03/2017: DANDamp;C (MISSED AB 1ST TRIMESTER)No date: NONEFAMILY [...] with Hoffa's fat padimpingement testing.Electronically Signed:Jose Hassan [facility]em[facility] 2016 11:54 Patricia Hassan MD 11/01/2016 12:01 [...] by JOSE HASSAN MD on 11/01/16 [facility] PROGRESSon 11-01-2016 PROGRESS HNO ID: [id number] thor: Jose Womackervice: (none)Author Type: PhysicianType: Progress [...] MEDICAL HISTORYDiagnosis Date- NEGATIVE MEDICAL HISTORYPAST SURGICAL CAICNTV58/2017: DANDC (MISSED AB 1ST TRIMESTER)No date: NONEFAMILY [...] testing.Electronically Signed:Don Llanos 2016 11:54 AM [facility] MRI KNEE WO IVCON RTon 10-25 MRI KNEE WO IVCON RT * * *Final Report* * *DATE OF EXAM: Oct 25 2016 7:25AM [facility] - [facility] KNEE WO IVCON [...] internal derangement.Remote injury of the fibular collateral ligament.Inspector Optical Instrument: ARASH Transcribe Date/Time: Oct 25 2016 8:41ADictated by : Blane QUINTANILLA examination was interpreted and the report reviewed and electronically signed by: CAROL ANN BERRIOS MD on Oct 26 2016 12:12AM EST [facility] PROGRESSon 10-25-2016 PROGRESS HNO ID: [id number] thor: Shad Valdez Mri-TService: (none)Author Type: (none)Type: Progress NotesFiled: 10/25/2016 7:13 AMNote Text: Radiology Service Progress NotePATIENT NAME: Saima YanceyMRN: [id number] OF SERVICE: October 25, 2016TIME: 7:13 AMPATIENT IDENTITY VERIFICATION COMPLETED USING TWO (2) METHODS: Patientconfirmed name verbally and ID band matches..PATIENT GENDER DATA: Female. status: : NoBreastfeeding status: NO.PATIENT RELEVANT IMPLANT DATA REVIEWED: YesRADIOLOGY DEPARTMENT: MR; Exam(s) Completed: Lower MSK: Knee, rightPERIPHERAL IV DATA: Not applicableSIGNED BY: Shad Valdez Mri-TJune 2016 7:13 AM [facility] Vital Signs Date Time Vital Sign Value Performing Clinician Facility 04-07-2024 17:04-0500 Body mass index (BMI) [Ratio] 33.91 kg/m2 Kalie Simpson PA Work Phone: [facility] 04-07-2024 17:04-0500 Body weight 104.15 kg Kalie Simpson PA Work Phone: [facility] 03-11-2024 15:51-0500 Body height 175.3 cm Kalie Simpson PA Work Phone: [facility] 03-11-2024 15:51-0500 Body mass index (BMI) [Ratio] 34.26 kg/m2 Kalie Simpson PA Work Phone: [facility] 03-11-2024 15:51-0500 Body weight 105.23 kg Kalie Simpson PA Work Phone: [facility] 03-11-2024 15:51-0500 Diastolic blood pressure 84 mm[Hg] Kalie Simpson PA Work Phone: [facility] 03-11-2024 15:51-0500 Systolic blood pressure 128 mm[Hg] Kalie Simpson PA Work Phone: [facility] 02-04-2024 15:52-0400 Body height 175.3 cm Kalie Calvin PA Work Phone: [facility] 02-04-2024 15:52-0400 Body mass index (BMI) [Ratio] 34.41 kg/m2 Kalie Calvin PA Work Phone: [facility] 02-04-2024 15:52-0400 Body weight 105.69 kg Kalie [place] PA Work Phone: [facility] 02-04-2024 15:52-0400 Diastolic blood pressure 70 mm[Hg] Kalie Calvin PA Work Phone: [facility] 02-04-2024 15:52-0400 Systolic blood pressure 126 mm[Hg] Kalie Padgettey PA Work Phone: [facility] 01-08-2024 13:31-0400 Body mass index (BMI) [Ratio] 35.62 kg/m2 Jasmeet Haydee DO Work Phone: [facility] 01-08-2024 13:31-0400 Body weight 109.41 kg Jasmeet Haydee DO Work Phone: [facility] 01-08-2024 13:31-0400 Diastolic blood pressure 62 mm[Hg] Jasmeet Haydee DO Work Phone: [facility] 01-08-2024 13:31-0400 Systolic blood pressure 126 mm[Hg] Jasmeet Haydee DO Work Phone: [facility] 05-20-2023 10:00-0500 Body height 171.45 cm Darci Chen Other [facility] Other 05-20-2023 10:00-0500 Body mass index (BMI) [Ratio] 40.12 kg/m2 Darci Chen Other [facility] Other 05-20-2023 10:00-0500 Body weight 117.94 kg Darci Chen Other [facility] Other 05-20-2023 10:00-0500 Diastolic blood pressure 90 mm[Hg] Darci Chen Other [facility] Other 05-20-2023 10:00-0500 SaO2% (BldA) [Mass fraction] 97 % Darci Chen Other [facility] Other 05-20-2023 10:00-0500 Systolic blood pressure 127 mm[Hg] Darci Chen Other [facility] Other 04-30-2023 14:30-0500 Body height 171.45 cm Amanda Samuel Other [facility] Other 04-30-2023 14:30-0500 Body mass index (BMI) [Ratio] 39.96 kg/m2 Amanda Samuel Other [facility] Other 04-30-2023 14:30-0500 Body weight 117.48 kg Amanda Samuel Other [facility] Other 04-30-2023 14:30-0500 Diastolic blood pressure 82 mm[Hg] Amanda Samuel Other [facility] Other 04-30-2023 14:30-0500 SaO2% (BldA) [Mass fraction] 99 % Amanda Samuel Other [facility] Other 04-30-2023 14:30-0500 Systolic blood pressure 120 mm[Hg] Amanda Samuel Other [facility] Other 12-25-2022 10:45-0400 Body height 171.45 cm Amanda Samuel Other [facility] Other 12-25-2022 10:45-0400 Body mass index (BMI) [Ratio] 42.74 kg/m2 Amanda Becerrilraymundo Other [facility] Other 12-25-2022 10:45-0400 Body weight 125.65 kg Amanda Jimmie Other [facility] Other 12-25-2022 10:45-0400 Diastolic blood pressure 84 mm[Hg] Amanda Burgospercy Other [facility] Other 12-25-2022 10:45-0400 Systolic blood pressure 120 mm[Hg] Amanda Burgospercy Other [facility] Other 10-11-2021 10:45-0400 Body height 171.45 cm Nick Olexa Other [facility] Other 10-11-2021 10:45-0400 Body mass index (BMI) [Ratio] 38.73 kg/m2 Nick Olexa Other [facility] Other 10-11-2021 10:45-0400 Body weight 113.85 kg Nick Olexa Other [facility] Other Encounters Encounter Date Encounter Type Care Provider Facility Start: 04-07-2024 End: 04-07-2024 Office outpatient visit 10 minutes Kalie FELIX Work Phone: [facility] Comment on above: Encounter for manage ment and injection of depo-Provera; Encounter to discuss test results; Encounter for weight management Start: 04-07-2024 End: 04-07-2024 ambulatory KALIE SIMPSON Not Available Start: 04-07-2024 End: 04-07-2024 Bamboo flowsheet Kalie [place] PA Work Phone: [facility] Start: 04-07-2024 End: 04-07-2024 Bamboo flowsheet Kalie Simpson PA Work Phone: [facility] Start: 03-26-2024 End: 03-26-2024 ambulatory [facility] Facility:[facility] Start: 03-17-2024 End: 03-17-2024 ambulatory Kalie FELIX Facility:[facility] Start: 03-16-2024 End: 03-16-2024 Emergency department patient visit [facility] Facility:[facility] Start: 03-12-2024 End: 03-12-2024 ambulatory [facility] Facility:[facility] Start: 03-11-2024 End: 03-11-2024 ambulatory KALIE SIMPSON Not Available Start: 03-11-2024 End: 03-11-2024 Office outpatient visit 15 minutes Kalie FELIX Work Phone: [facility] Comment on above: Well adult exam; Pelvic pain in female; Encounter for weight management Start: 03-11-2024 End: 03-11-2024 Bamboo flowsheet Kalie Simpson PA Work Phone: [facility] Start: 03-11-2024 End: 03-11-2024 Bamboo flowsheet Kalie Simpson PA Work Phone: [facility] Start: 03-11-2024 End: 03-11-2024 Patient encounter status Kalie FELIX Work Phone: [facility] Start: 02-13-2024 End: 02-13-2024 ambulatory [facility] Facility:[facility] Start: 02-04-2024 End: 02-04-2024 Office outpatient visit 15 minutes Kalie Simpson PA Work Phone: [facility] Comment on above: Encounter for weight management; Weight gain Start: 02-04-2024 End: 02-04-2024 ambulatory KALIE SIMPSON Not Available Start: 02-04-2024 End: 02-04-2024 Bamboo flowsheet Kalie Simpson PA Work Phone: [facility] Start: 02-04-2024 End: 02-04-2024 Bamboo flowsheet Kalie Simpson PA Work Phone: [facility] Start: 01-06-2024 End: 01-06-2024 Office outpatient visit 10 minutes Jasmeet Haydee DO Work Phone: [facility] Comment on above: Encounter for weight management Start: 12-09-2023 End: 12-09-2023 ambulatory JASMEET HAYDEE Not Available Start: 08-27-2023 End: 08-27-2023 ambulatory KALIE CALVIN Not Available Start: 07-31-2023 End: 07-31-2023 ambulatory KALIE CALVIN Not Available Start: 07-03-2023 End: 07-03-2023 ambulatory KALIE CALVIN Not Available Start: 06-03-2023 End: 06-03-2023 ambulatory KALIE CALVIN Not Available Start: 06-02-2023 End: 06-02-2023 ambulatory ROCHELLE Samuel Work Phone: [facility] Work Phone: Start: 06-02-2023 End: 06-02-2023 Patient encounter procedure ROCHELLE Samuel Work Phone: [facility] Work Phone: Start: 05-27-2023 End: 05-27-2023 Patient encounter procedure ROCHELLE Samuel Work Phone: [facility] [place] Work Phone: Start: 05-27-2023 End: 05-27-2023 ambulatory ROCHELLE Samuel Work Phone: [facility] Work Phone: Start: 05-20-2023 Office outpatient vi sit [address] [facility] Start: 05-20-2023 End: 05-20-2023 Patient encounter procedure ROCHELLE Samuel Work Phone: [facility] Work Phone: Start: 05-20-2023 End: 05-20-2023 ambulatory P[place] TANNER Amanda Jimmie Work Phone: [facility] Other Start: 05-05-2023 End: 05-05-2023 ambulatory [place] T[place]NER Amanda Jimmie Work Phone: [facility] Work Phone: Start: 05-05-2023 End: 05-05-2023 Patient encounter procedure PIT TANNER Amanda Jimmie Work Phone: [facility] Work Phone: Start: 05-05-2023 End: 05-05-2023 ambulatory KALIE SIMPSON Not Available Start: 04-30-2023 End: 04-30-2023 ambulatory Amanda Samuel Other [facility] Other Start: 04-30-2023 Office outpatient vi sit 15 minutes Amanda Samuel [facility] Start: 04-30-2023 End: 04-30-2023 Patient encounter procedure PIT TANNER Amanda Jimmie Work Phone: [facility] Work Phone: Start: 04-26-2023 End: 04-26-2023 Emergency department patient visit Amanda Samuel Facility:[facility] Start: 03-17-2023 End: 03-17-2023 Patient encounter procedure PIT TANNER Amanda Samuel Work Phone: [facility] Work Phone: Start: 12-25-2022 End: 12-25-2022 ambulatory Amanda Samuel Other [facility] Other Start: 12-25-2022 Office outpatient vi sit 15 minutes Amanda Samuel [facility] Start: 07-15-2022 End: 07-16-[address] JASMEET HUBBARD . Facility:[facility] Start: 06-12-2022 End: 06-12-2022 ambulatory Amanda Samuel Other [facility] Other Start: 06-12-2022 Encounter by jose Samuel [facility] [place] Start: 06-05-2022 End: 06-06-[address] JASMEET HUBBARD . Facility:[facility] Start: 05-06-2022 End: 05-07-[address] JASMEET HUBBARD . Facility:[facility] Start: 03-08-2022 End: 03-09-[address] JASMEET HUBBARD . Facility:[facility] Start: 01-25-2022 End: 01-25-2022 ambulatory Nick Ng Other [facility] Other Start: 01-25-2022 Telephone encounter Nick Ng [facility] Start: 01-24-2022 End: 01-24-2022 ambulatory ROCHELLE Samuel Work Phone: [facility] Work Phone: Start: 01-24-2022 End: 01-24-2022 Patient encounter procedure ROCHELLE Samuel Work Phone: [facility] [place] Start: 01-16-2022 End: 01-16-2022 ambulatory Amanda Mueller Other [facility] Other Start: 01-16-2022 Office outpatient vi sit 15 minutes Amanda Mueller [facility] Start: 01-03-2022 End: 01-04-[address] JASMEET HUBBARD . Facility:[facility] Start: 12-06-2021 End: 12-06-2021 ambulatory Nick Ng Other [facility] Other Start: 12-06-2021 Postop follow up vis it related to original px Nick Olexa [facility] Start: 12-06-2021 End: 12-06-2021 Patient encounter procedure PIT TANNERJon Samuel Work Phone: [facility] [place] [facility] Start: 11-22-2021 End: 11-22-2021 ambulatory Nick Olexa Other [facility] Other Start: 11-22-2021 Telephone encounter Nick Olexa [facility] Start: 11-13-2021 End: 11-13-2021 ambulatory Nick Olexa Other [facility] Other Start: 11-13-2021 Telephone encounter Nick Olexa [facility] Start: 11-08-2021 End: 11-08-2021 Patient encounter procedure PIT TANNERJon Samuel Work Phone: [facility] [place] [facility] Start: 10-11-2021 (Post-Op) Post-Op Nick Olexa [facility] Start: 10-11-2021 End: 10-11-2021 ambulatory Nick Olexa Other [facility] Other Start: 10-01-2021 End: 10-01-2021 ambulatory Amanda Samuel Other [facility] Other Start: 10-01-2021 Telephone encounter Amanda Garber her [facility] Start: 09-28-2021 End: 09-28-2021 ambulatory Amanda Samuel Other [facility] Other Start: 09-28-2021 Telephone encounter Amanda Garber her [facility] Start: 09-27-2021 End: 09-27-2021 ambulatory Nick Olexa Other [facility] [employer] Other Start: 09-27-2021 Office outpatient ne w 45 minutes Nick Ng [facility] Start: 09-27-2021 Telephone encounter Amanda Mueller [facility] Start: 09-14-2021 End: 09-14-[address] JASMEET HUBBARD . Facility:[facility] Start: 09-14-2021 Encounter for preprocedural laboratory examination DR JASMEET HUBBARD . [facility] Start: 09-11-2021 End: 09-12-[address] JASMEET HUBBARD . Facility:[facility] Start: 09-11-2021 End: 09-12-2021 Encounter for preprocedural laboratory examination DR JASMEET HUBBARD . Facility:[facility] Start: 09-05-2021 Encounter for other preprocedural examination DR JASMEET HUBBARD . [facility] Start: 09-03-2021 End: 09-04-[address] JASMEET HUBBARD . Facility:[facility] Start: 09-03-2021 End: 09-04-2021 Encounter for other preprocedural examination DR JASMEET HUBBARD . Facility:[facility] Start: 08-20-2021 End: 08-20-[address] JASMEET HUBBARD . Facility: Start: 04-11-2017 End: 04-14-2017 Ambulatory JOSE HASSAN [facility] Start: 03-29-2017 End: 03-31-2017 Ambulatory JOSE HASSAN [facility] Start: 01-14-2017 End: 01-14-2017 Ambulatory JAMES JONES [facility] Start: 12-11-2016 Ambulatory AGAPITO TORRES [facility] Start: 11-18-2016 End: 12-16-2016 Ambulatory AGAPITO TORRES [facility] Start: 11-06-2016 End: 11-06-2016 Ambulatory JORDI JACKSON [facility] Start: 11-01-2016 End: 11-01-2016 Ambulatory JOSE HASSAN [facility] Start: 10-25-2016 End: 10-25-2016 Ambulatory JOSE HASSAN [facility] Procedures Date Procedure Procedure Detail Performing Clinician Start: 05-27-2023 MRI of head ROCHELLE Becerrilbladimirjanellmarysol Work Phone: Start: 01-24-2022 MRI of right knee ROCHELLE Becerrilbladimirjanellmarysol Work Phone: Start: 12-06-2021 X-ray of right knee APR Jon Samuel Work Phone: Start: 11-08-2021 X-ray of right knee APR N Amanda Samuel Work Phone: Plan of Treatment Date Care Activity Detail Author Start: 12-20-2024 End: 12-20-2024 Patient encounter procedure 12/20/2024 4:00 PM EDT Office Visit [facility] [address] [place] [phone] Jasmeet Hubbard, DO [address] [place] [address] [facility] Start: 06-09-2024 End: 06-09-2024 Patient encounter procedure 06/09/2024 4:00 PM EST Office Visit [facility] [address] [place] [phone] Kalie Simpson PA [address] [place] [address] [facility] Start: 05-03-2024 End: 05-03-2024 Patient encounter procedure 05/03/2024 8:00 AM EST Office Visit [facility] [address] [place] [phone] Jasmeet Hubbard, DO [address] [place] [address] [facility] Start: 04-07-2024 End: 04-07-2024 Patient encounter procedure [facility] Comment on above: Arrived Start: 04-05-2024 End: 04-05-2024 Patient encounter procedure 04/05/2024 3:30 PM EST Office Visit [facility] [address] [phone] Kalie Simpson PA [address] [place] [address] [facility] Start: 03-11-2024 End: 03-11-2025 Lipid 1996 panel - Serum or Plasma Lipid panel Lab Routine Well adult exam Expected: 03/11/2024 (Approximate), Expires: 03/11/2025 [facility] Comment on above: Expected: 03/11/2024 (Approximate), Expires: 03/11/2025 Start: 03-11-2024 End: 03-11-2025 US for US PELVIS-TRANSVAG IF INDICATED Imaging Routine Pelvic pain in female Expected: 03/11/2024 (Approximate), Expires: 03/11/2025 [facility] Comment on above: Expected: 03/11/2024 (Approximate), Expires: 03/11/2025 Start: 03-08-2024 End: 03-08-2024 Patient encounter procedure 03/08/2024 8:00 AM EST Office Visit [facility] [address] [phone] Jasmeet Hubbard DO [address] [place] [address] [facility] Start: 02-04-2024 End: 02-04-2024 Patient encounter procedure [facility] Comment on above: Arrived Start: 12-28-2023 Influenza vaccination Influenza Vacc ine (#1) [facility] Start: 05-27-2023 MR Unspecified body region [facility] Start: 05-27-2023 MRI of head MR head/brain wo/w con [facility] CBC W Auto Different ial panel - Blood CBC and differential Lab Routine Well adult exam Ordered: 03/11/2024 [facility] Comment on above: Ordered: 03/11/2024 Comprehensive metabo lic 2000 panel - Serum or Plasma Comprehensive metabolic panel Lab Routine Well adult exam Ordered: 03/11/2024 [facility] Comment on above: Ordered: 03/11/2024 Hemoglobin A1c/Hemoglobin.total in Blood Hemoglobin A1c Lab Routine Well adult exam Ordered: 03/11/2024 [facility] Comment on above: Ordered: 03/11/2024 Thyrotropin [Units/volume] in Serum or Plasma TSH Lab Routine Well adult exam Ordered: 03/11/2024 [facility] Work Phone: Comment on above: Ordered: 03/11/2024 Immunizations Immunization Date Immunization Notes Care Provider Fa aileen 01-28-2020 influenza, injectabl e, quadrivalent, contains preservative Amanda Samuel Other [facility] Other 01-28-2020 influenza virus vaccine, unspecified formulation Jasmeet Hubbard DO Work Phone: [facility] 08-16-2016 diphtheria, tetanus toxoids and acellular pertussis vaccine Amanda Samuel Other [facility] Other 02-27-2010 influenza virus vaccine, split virus (incl. purified surface antigen) Amadna Samuel Other [facility] Other 11-09-2008 human papilloma viru s vaccine, quadrivalent Amanda Lorettaacher Other [facility] Other 07-05-2008 human papilloma viru s vaccine, quadrivalent Amanda Jerricarbacher Other [facility] Other 05-10-2008 human papilloma viru s vaccine, quadrivalent Amanda Lorettaacher Other [facility] Other 04-12-2008 diphtheria, tetanus toxoids and acellular pertussis vaccine Amanda Samuel Other [facility] Other 04-12-2008 meningococcal polysaccharide (groups A, C, Y and W-135) diphtheria toxoid conjugate vaccine (MCV4P) Amanda Jimmie Other [facility] Other 04-12-2008 varicella virus vaccine Carmen becerra Jimmie Other [facility] Other 12-07-2001 diphtheria, tetanus toxoids and acellular pertussis vaccine Amanda Jimmie Other [facility] Other 12-07-2001 poliovirus vaccine, inactivated Amanda Jimmie Other [facility] Other 04-16-2000 measles, mumps and rubella virus vaccine Amanda Jimmie Other [facility] Other 07-14-1998 diphtheria, tetanus toxoids and acellular pertussis vaccine Amanda Jimmie Other [facility] Other 07-14-1998 haemophilus influenz ae type b vaccine, PRP-OMP conjugate Amanda Jimmie Other [facility] Other 04-13-1998 measles, mumps and rubella virus vaccine Amanda Jimmie Other [facility] Other 04-13-1998 varicella virus vaccine Carmenjon becerra Jimmie Other [facility] Other 1997 diphtheria, tetanus toxoids and acellular pertussis vaccine Amanda Jimmie Other [facility] Other 1997 haemophilus influenz ae type b vaccine, PRP-OMP conjugate Amanda Rohrbacher Other [facility] Other 1997 hepatitis B vaccine, pediatric or pediatric/adolescent dosage Amanda Rohrbacher Other [facility] Other 1997 poliovirus vaccine, inactivated Amanda Rohrbacher Other [facility] Other 1997 diphtheria, tetanus toxoids and acellular pertussis vaccine Amanda Rohrbacher Other [facility] Other 1997 haemophilus influenz ae type b vaccine, PRP-OMP conjugate Amanda Becerrilrbacher Other [facility] Other 1997 poliovirus vaccine, inactivated Amanda Rohrbacher Other [facility] Other 1997 diphtheria, tetanus toxoids and acellular pertussis vaccine Amanda Jerricarbacher Other [facility] Other 1997 haemophilus influenz ae type b vaccine, PRP-OMP conjugate Amanda Becerrilrbacher Other [facility] Other 1997 hepatitis B vaccine, pediatric or pediatric/adolescent dosage Amanda Rohrbacher Other [facility] Other 1997 poliovirus vaccine, inactivated Amanda Rohrbacher Other [facility] Other 1997 hepatitis B vaccine, pediatric or pediatric/adolescent dosage Amanda Rohrbacher Other [facility] Other Payers Date Payer Category Payer Unknown 2024 Private Health Insurance [employer] [id number] 2024 Unknown [id number] 2023 Private Health Insurance [facility] [id number] 2023 Self-pay [id number] 2022 Medicaid [id number] 1997 Unknown [id number] 2.16.840.1.541739.3.579.2. 593 1997 Unknown [id number] 2.16.840.1.788684.3.579.2. 593 1997 Unknown [id number] 2.16.840.1.549158.3.579.2. 593 1997 Unknown [id number] 2.16.840.1.691351.3.579.2. 593 1997 Unknown [id number] 2.16.840.1.670246.3.579.2. 593 1997 Unknown [id number] 2.16.840.1.364403.3.579.2. 593 1997 Unknown [id number] 2.16.840.1.745143.3.579.2. 593 1997 Unknown [id number] 2.16.840.1.114401.3.579.2. 593 1997 Unknown [id number] 2.16.840.1.926876.3.579.2. 593 1997 Unknown [id number] 2.16.840.1.460870.3.579.2. 718 1997 Unknown [id number] 2.16.840.1.233115.3.579.2. 718 1997 Unknown [id number] 2.16.840.1.431038.3.579.2. 718 1997 Unknown [id number] 2.16.840.1.389656.3.579.2. 8 1997 Unknown [id number] 2.16.840.1.077422.3.579.2. 8 1997 Unknown [id number] 2.16.840.1.003448.3.579.2. 1258 1997 Unknown [id number] 2.16.840.1.633636.3.579.2. 1258 1997 Unknown [id number] 2.16.840.1.704023.3.579.2. 1258 1997 Unknown [id number] 2.16.840.1.284473.3.579.2. 1258 1997 Unknown [id number] 2.16.840.1.366196.3.579.2. 1258 1997 Unknown [id number] 2.16.840.1.446267.3.579.2. 1258 1997 Unknown [id number] 2.16.840.1.564157.3.579.2. 1258 1997 Unknown [id number] 2.16.840.1.686876.3.579.2. 1258 1997 Unknown [id number] 2.16.840.1.608724.3.579.2. 1259 1959 Blue Cross Blue Shield [id number] 2.16.840.1.989762.19 1959 Unknown [id number] 2.16.840.1.166380.19 Unknown [id number] 2.16.840.1.214856.3.579.2. 531 Unknown [id number] 2.16.840.1.540840.3.579.2. 531 Unknown [id number] 2.16.840.1.365537.3.579.2. 531 Unknown [id number] 2.16.840.1.026707.3.579.2. 531 Social History Date Type Detail Facility Unknown if ever smoked [facility] Other Start: 02-26-2023 End: 02-04-2024 Sex Assigned At [employer] Other Start: 1997 Sex Assigned At Female F [facility] Start: 11-12-2022 End: 02-04-2024 Tobacco smoking status NHIS Never smoked tobacco [facility] Start: 02-04-2024 Tobacco use and exposure Smokeless tobacco non-user [facility] Start: 01-08-2024 End: 02-04-2024 Alcoholic beverage intake Lifetime non-drinker (finding) [facility] Start: 02-26-2023 End: 02-04-2024 History of Social function [facility] Start: 11-06-2022 Gender identity Identifies as female gender (finding) [facility] Clinical Notes 08-26-2021 to 04-07-2024 ISIDRO Jeff - 04/07/2024 3:40 PM ISIDRO Paris - 03/11/2024 3:40 PM ISIDRO [place] - 02/04/2024 3:50 PM Florecita Gregory LPN - 01/06/2024 8:10 AM EDT Note Date & Type Note Facility 04-07-2024 History of Presen t illness Narrative Reason for Appointment: Patient ID: Saima Yancey is a 28 y.o. female who presents for Weight Management and Results Patient presents today for Weight Management Consult. MEDICATIONS Current Outpatient Medications Medication Instructions citalopram (CELEXA) 20 mg, Oral, Daily metFORMIN XR (GLUCOPHAGE-XR) 500 mg, Oral, Daily with evening meal, Do not crush, chew, or split. phentermine (ADIPEX-P) 37.5 mg, Oral, Daily before breakfast phentermine (ADIPEX-P) 37.5 mg, Oral, Daily before breakfast Potassium 99 MG tablet propranolol (INDERAL) 40 mg, Daily ALLERGIES No Known Allergies PROBLEMS Active Ambulatory Problems Diagnosis Date Noted Anovular menstruation 01/27/2023 Anovulation 01/27/2023 Muscle weakness 09/09/2016 Missed period 01/27/2023 Missed 07/09/2016 Decreased ROM of lower extremity 09/09/2016 Cough 01/27/2023 Confirm cardiac activity using ultrasound 07/08/2016 Patellofemoral stress syndrome of right knee 02/21/2016 Right knee pain 09/09/2016 Viral illness 01/27/2023 Encounter for weight management 03/11/2024 Well adult exam 03/11/2024 Pelvic pain in female 03/11/2024 Resolved Ambulatory Problems Diagnosis Date Noted No [...] SYSTEMS Review of Systems: Review of Systems Constitutional: Negative. HENT: Negative. Eyes: Negative. Respiratory: Negative. Cardiovascular: Negative. Gastrointestinal: Negative. Genitourinary: Negative. Musculoskeletal: Negative. Skin: Negative. Neurological: Negative. All other systems reviewed and are negative. Hematological: Negative. Endocrine: Negative. Allergic/Immunologic: Negative. OBJECTIVE Objective: Physical Exam Constitutional: Appearance: Normal appearance. She is normal weight. HENT: Head: Normocephalic. Cardiovascular: Rate and Rhythm: Normal rate. Pulses: Normal pulses. Pulmonary: Effort: Pulmonary effort is normal. Breath sounds: Normal breath sounds. Abdominal: Palpations: Abdomen is soft. Musculoskeletal: General: Normal range of motion. Neurological: General: No focal deficit present. Mental Status: She is alert and oriented to person, place, and time. Psychiatric: Mood and Affect: Mood normal. Behavior: Behavior normal. Thought Content: Thought content normal. Judgment: Judgment normal. Vitals and nursing note reviewed. Vitals: Estimated body mass index is 33.91 kg/m as calculated from the following: Height as of 03/11/24: 5' 9 . Weight as of this encounter: 229 lb 9.6 oz. BP: Patient's last menstrual period was 02/29/2024 (exact date). ASSESSMENT & PLAN ICD-10-CM 1. Encounter for management and injection of depo-Provera Z30.42 2. Encounter to discuss test results Z71.2 3. Encounter for weight management Z76.89 phentermine (Adipex-P) 37.5 MG tablet Patient had recently been seen at er for hypokalemia and chest pressure. Pt is following up with cardiology in next couple months. Pt is to follow up with her pcp and cardiology. We will not fill adipex at this time. Documented by ISIDRO Jeff on behalf of: ISIDRO Jeff documented in this encounter [facility] 03-16-2024 Note Education Materials Emergency Medicine Sinus Tachycardia Sinus tachycardia is a fast heartbeat. In sinus tachycardia, the heart beats more than 100 times a minute. Sinus tachycardia starts in the part of the heart called the sinoatrial (SA) node. Sinus tachycardia may be harmless, or it may be a sign of a serious condition. What are the causes? This condition may be caused by: ? Exercise or exertion. ? A fever. ? Pain. ? Loss of body fluids (dehydration). ? Severe bleeding (hemorrhage). ? Anxiety and stress. ? Certain substances, including: ? Alcohol. ? Caffeine. ? Tobacco and nicotine products. ? Cold medicines. ? Illegal drugs. ? Medical conditions including: ? Heart disease. ? An infection. ? An overactive thyroid (hyperthyroidism). ? A lack of red blood cells (anemia). What are the signs or symptoms? Symptoms of this condition include: ? A feeling that the heart is beating fast or unevenly (palpitations). ? Suddenly noticing your heartbeat (cardiac awareness). ? Lightheadedness. ? Tiredness (fatigue). ? Shortness of breath. ? Chest pain. ? Nausea. ? Fainting. How is this diagnosed? This condition is diagnosed with: ? A physical exam. ? Tests or monitoring, such as: ? Blood tests. ? An electrocardiogram (ECG). This test measures the electrical activity of the heart. ? Ambulatory property assessment monitor. This records your heartbeats for 24 hours or more. You may be referred to a category specialist (machine bender). How is this treated? Treatment for this condition depends on the cause. Treatment may involve: ? Treating the underlying condition. ? Taking new medicines or changing your current medicines as told by your health care provider. ? Making changes to your diet or lifestyle. Follow these instructions at home: Lifestyle ? Do not use any products that contain nicotine or tobacco. These products include cigarettes, chewing tobacco, and vaping devices, such as e-cigarettes. If you need help quitting, ask your health care provider. ? Do not use illegal drugs, such as cocaine. ? Learn relaxation methods to help you when you get stressed or anxious. These include deep breathing. ? Avoid caffeine or other stimulants, including herbal stimulants that are found in energy drinks. Alcohol use ? Do not drink alcohol if: ? Your health care provider tells you not to drink. ? You are , may be , or are planning to become . ? If you drink alcohol: ? Limit how much you have to: ? 0?1 drink a day for women. ? 0?2 drinks a day for men. ? Know how much alcohol is in your drink. In the [place] one drink equals one 12 oz bottle of beer (355 mL), one 5 oz glass of wine (148 mL), or one 1? oz glass of hard liquor (44 mL). General instructions ? Drink enough fluids to keep your urine pale yellow. ? Take frpa-zhe-jpsroix and prescription medicines only as told by your health care provider. ? Ask your health care provider about taking vitamins, herbs, and supplements. Contact a health care provider if: ? You have vomiting or diarrhea that does not go away. ? You have a fever. ? You have weakness or dizziness. ? You feel faint. Get help right away if: ? You have pain in your chest, upper arms, jaw, or neck. ? You have palpitations that do not go away. Summary ? In sinus tachycardia, the heart beats more than 100 times a minute. ? Sinus tachycardia may be harmless, or it may be a sign of a serious condition. ? Treatment for this condition depends on the cause or the underlying condition. ? Get help right away if you have pain in your chest, upper arms, jaw, or neck. This information is not intended to replace advice given to you by your health care provider. Make sure you discuss any questions you have with your health care provider. Document Revised: 08/13/2022 Document Reviewed: 08/13/2022 [employer] Patient Education ? 2023 [employer]. Gastroenterology Nonspecific Chest Pain Chest pain can be caused by many different conditions. Some causes of chest pain can be life-threatening. These will require treatment right away. Serious causes of chest pain include: ? Heart attack. ? A tear in the body's main blood vessel. ? Redness and swelling (inflammation) around your heart. ? Blood clot in your lungs. Other causes of chest pain may not be so serious. These include: ? Heartburn. ? Anxiety or stress. ? Damage to bones or muscles in your chest. ? Lung infections. Chest pain can feel like: ? Pain or discomfort in your chest. ? Crushing, pressure, aching, or squeezing pain. ? Burning or tingling. ? Dull or sharp pain that is worse when you move, cough, or take a deep breath. ? Pain or discomfort that is also felt in your back, neck, jaw, shoulder, or arm, or pain that spreads to any of these areas. It is hard to know whet (more content not included)... [facility] 03-11-2024 History of Presen t illness Narrative [...] nursing note reviewed. Exam conducted with a service technician copier present. Vitals: Estimated body mass index is [...] of: ISIDRO Jeff documented in this encounter [facility] 02-04-2024 History of Presen t illness Narrative [...] Medical History: Diagnosis Date Allergies Post depression (CMS/HCC) Past Surgical History: Procedure Laterality Date ADENOIDECTOMY 2007 SECTION, LOW TRANSVERSE 2019 TONSILLECTOMY 2006 Assessment/Plan [...] of ISIDRO Jeff documented in this encounter [facility] 01-06-2024 History of Presen t illness Narrative Pt presents today for a nurse Televisit for her 2nd Adipex script. She states that she is doing well with the Adipex. Denies any issues or concerns. She is down 7lbs from last appointment. Pt is coming to office to case picker script. Pt advised to return to the office in 4 weeks for next Adipex script Documented on behalf of Dr. Jasmeet Hubbard by Jojo Garza LPN Total time spent on phone conversation was 5 minutes. documented in this encounter [facility] 05-20-2023 Evaluation note Encounter Date Diagnosis Assessment [...] changes in symptoms and/or problems with treatment [facility] Other 01-03-2024 Evaluation note* Encounter Date Diagnosis [...] Family history of migraine (ICD-10 - Z82.0) [facility] Other 12-30-2023 NoteEducation Materials Neurology Migraine Headache [...] these instructions at home: Medicines ? Take jgia-vhg-elhkjbd and prescription medicines only as told by your health care provider. ? Ask your health care provider if the medicine prescribed to you: ? Requires you to avoid driving or using heavy machinery. ? Can cause constipation. You may need to take these actions to prevent or treat constipation: ? Drink enough fluid to keep your urine pale yellow. ? Take kusz-fuo-bzlcwhq or prescription medicines. ? Eat foods that [...] ? You develop symptoms (more content not included)...[id number]* Encounter Date Diagnosis Assessment Notes Treatment Notes Treatment Clinical Notes Nov, Bronchitis (ICD-10 - J40) Discussed diagnosis with patient. Patient to start Zithromax. Patient to take Zithromax daily with food as prescribed. Finish entire course of antibiotic. Tessalon Pearles ordered to take as needed for cough. Increase fluids and rest. Bcwi-pgi-hordabh antipyretics as needed. Warning signs and symptoms reviewed with patient today. Patient to go immediately to the ER should she experience any of these. Patient to notify office should her symptoms persist and not improve. Patient verbalizes understanding and agrees to treatment plan. [facility] Other 09-21-2022 Evaluation note* Encounter Date Diagnosis [...] of pain and plan potential surgical treatment. [facility] Other 08-11-2022 Evaluation note* Encounter Date Diagnosis [...] one with metal stays. Call with questions/concerns. [facility] Other 06-16-2022 Evaluation note* Encounter Date Diagnosis [...] to continue off work at this time. [facility] Other 06-02-2022 Evaluation note* Encounter Date Diagnosis [...] in a brace. 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 PREOPERATIVE DIAGNOSIS: Pelvic pain. POSTOPERATIVE DIAGNOSIS: Pelvic pain. ANESTHESIA: General. SURGEON: Jasmeet Hubbard M.D. RECORD SYSTEMS ANALYST: JANELL De Souza URINE OUTPUT: Yellow and [...] Hubbard DO on 09/17/2021 07:39 AM EDT [facility] Signed and Approved by: DR JASMEET HUBBARD . 09/17/2021 07:39:00[facility]05-01-2022 History general Narrative - Reported* Type Description Date Medical History Headaches Medical History Concussion, without loss of consciousness, initial encounter Surgical History tonsillectomy Surgical History D&C Surgical History laparoscopy 08/2021 Surgical History C section 12/2018 Hospitalization History Dehydration 2001 Hospitalization History Miscarriage D&C [facility] Other Evaluation noteNo InformationNort [employer] Other Evaluation noteNo assessment information available [facility] Work Phone: Evaluation note* Diagnosis Encounter for weight management Weight gain Other symptoms concerning nutrition, metabolism, and development documented in this encounter [facility]* Diagnosis Well adult exam Routine general medical examination at a health care facility Pelvic pain in female Unspecified symptom associated with female genital organs Encounter for weight management documented in this encounter [facility]* Diagnosis Encounter for management and injection of depo-Provera Encounter to discuss test results Other specified counseling Encounter for weight management documented in this encounter [facility]* Diagnosis Encounter for weight management documented [facility] N[facility] - Reported* Type Description Date Medical History Headaches Medical History Concussion, without loss of consciousness, initial encounter Medical History PCOS Medical History Endometrosis Surgical History tonsillectomy Surgical History D&C Surgical History laparoscopy 08/2021 Surgical History C section 12/2018 Hospitalization History Dehydration 2001 Hospitalization History Miscarriage D&C [facility] Other Summary Purpose Family History No Family [...] section and content) DATE CREATED AUTHOR 10/21/2017 [facility] DATE CREATED AUTHOR AUTHOR'S ORGANIZ ATION 10/22/2017 [facility] DATE CREATED AUTHOR AUTHOR'S ORGANIZ ATION 08/06/2022 [facility] DATE CREATED AUTHOR AUTHOR'S ORGANIZ ATION 01/17/2024 [facility] DATE CREATED AUTHOR AUTHOR'S ORGANIZ ATION 03/29/2024 [facility] DATE CREATED AUTHOR AUTHOR'S ORGANIZ ATION 04/10/2024 [facility] EPIC REASON FOR VISIT (unrecogniz ed section and content) Reason Comments Weight Management Reason Comments Weight Management Results Care Teams (unrecognized sec tion and content) Team Status: Inactive Member Role Status Dates Amanda Samuel APRN ELECTRONEURODIAGNOSTIC TECHNICIAN-C Primary Care Provider Active Amanda Mueller NP-C Attending Provider Active Team Status: Inactive Member Role Status Dates Amanda Samuel APRN ELECTRONEURODIAGNOSTIC TECHNICIAN-C Primary Care Provider Active Nick Ng MD Attending Provider Active Team Status: Active Member Role Status Dates Amanda Samuel APRN ELECTRONEURODIAGNOSTIC TECHNICIAN-C Primary Care Provider Active Team Status: Inactive Member Role Status Dates Darci Chen MD Attending Provider Active Amanda Samuel APRN ELECTRONEURODIAGNOSTIC TECHNICIAN-C Primary Care Provider Active Team Status: Inactive Member Role Status Dates Amanda Samuel APRN ELECTRONEURODIAGNOSTIC TECHNICIAN-C Attending Provider Act gilberto Start: March 17, 2023 End: March 17, 2023 Team Status: Inactive Member Role Status Dates Amanda Samuel APRN ELECTRONEURODIAGNOSTIC TECHNICIAN-C Attending Provider Act gilberto Start: April 30, 2023 End: April 30, 2023 Team Status: Inactive Member Role Status Dates Darci Chen MD Attending Provider Active S tart: May 05, 2023 End: May 05, 2023 Amanda Samuel APRN ELECTRONEURODIAGNOSTIC TECHNICIAN-C Primary Care Provider Active Start: May 05, 2023 End: May 05, 2023 Team Status: Inactive Member Role Status Dates Darci Chen MD Attending Provider Active S tart: May 20, 2023 End: May 20, 2023 Amanda Samuel APRN ELECTRONEURODIAGNOSTIC TECHNICIAN-C Primary Care Provider Active Start: April End: May 20, 2023 Team Status: Inactive Member Role Status Dates Amanda Samuel APRN ELECTRONEURODIAGNOSTIC TECHNICIAN-[place] Primary Care Provider, Attending Provider Active Start: May 27, 2023 End: May 27, 2023 Team Status: Inactive Member Role Status Dates Amanda Samuel APRN ELECTRONEURODIAGNOSTIC TECHNICIAN-[place] Primary Care Provider Active Start: May End: June 02, 2023 Darci Chen MD Attending Provider Active S tart: June 02, 2023 End: June 02, 2023 Cement Finisher Apprentice Relationship Specialty Start Date End Date mAanda Samuel NP [address] [facility] [place] [address] PCP - General Family Medicine 11/13/22 Cement Finisher Apprentice Relationship Specialty Start Date End Date Amanda Samuel NP [address] [facility] [place] [address] PCP - General Family Medicine 11/13/22 Cement Finisher Apprentice Relationship Specialty Start Date End Date Amanda Samuel NP [address] [place] [address] PCP - General Family Medicine 11/13/22 Cement Finisher Apprentice Relationship Specialty Start Date End Date Amanda Samuel NP [address] [place] [address] PCP - General Family Medicine 11/13/22 Cement Finisher Apprentice Relationship Specialty Start Date End Date Amanda Samuel NP [address] [place] [address] PCP - General Family Medicine 11/13/22 Cement Finisher Apprentice Relationship Specialty Start Date End Date Amanda Samuel NP [address] [place] [address] PCP - General Family Medicine 11/13/22 Cement Finisher Apprentice Relationship Specialty Start Date End Date Amanda Samuel NP [address] [place] [address] PCP - General Family Medicine 11/13/22 Goals [...] BE BASED ON THE PRIMARY CLINICAL RECORDS. [employer] provides no warranty or guarantee of the accuracy or completeness of information in this document.
[2024-04-29 22:52] VITALS: BP 156/99; PULSE 128; TEMP 36.6; O2SAT 100; BMI 33.7
[2024-04-29 22:59] VITALS: PULSE 118
[2024-04-29 23:00] VITALS: PULSE 122
--- NOTE | 2024-04-29 23:01 | ECG_ITS ---
[facility] Test Date: 2024-04-29 Pat Name: GERTRUDE MANDEL Department: Room: - Gender: Female International Marketing Coordinator: : 1995 Requested By: [id number] Order Number: [id number] Reading MD: JOSEPH NEVAREZ Measurements Intervals Dike Rate: 114 P: 62 NV: 162 QRS: 69 QRSD: 88 T: 52 QT: 302 QTc: 370 Interpretive Statements 1120 Sinus tachycardia 9140 abnormal rhythm ECG No previous ECG available for comparison Electronically Signed On 04-30-2024 7:04:07 EST by JOSEPH NEVAREZ
[2024-04-29 23:02] VITALS: BP 153/87; PULSE 125; O2SAT 99
--- NOTE | 2024-04-29 23:09 | ED_ITS ---
HPI - Chest Pain General Chief Complaint: Chest Pain Stated Complaint: FAST HEART RATE Time Seen by Provider: 04/29/24 22:59 Source: patient Mode of arrival: walk-in Limitations: no limitations History of Present Illness HPI narrative: This 29-year-old female, non-smoker presents for evaluation of tachycardia. The patient states she has been having episodes of tachycardia for approximately 1 month. She has been seen by her family physician and was taken off of Adipex as it was thought that the Adipex may be contributing to her tachycardia. She has had routine blood work including thyroid functions done at her job. The patient states she was down here tonight visiting friends and felt her heart racing and felt tightness in her chest with a feeling that she might pass out. She did not pass out and came to the emergency department. She denies any kelli chest pain. She has no focal neurologic weakness numbness or tingling. She has no abdominal pain. She is not on control and denies any tobacco use. She has no lower extremity pain or swelling. She has not had a fever. 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. Related Data Allergies Allergy/AdvReac Type Severity Reaction Status Date / Time No Known Drug Allergies Allergy Verified 04/29/24 22:52 Review of Systems ROS Status of ROS 10 or more systems reviewed and unremark able except as noted in history and below PFSH PFSH Social History Little interest or pleasure in doing things: not at all Feeling down, depressed, or hopeless: not at all Exam Narrative Exam Narrative: Vital signs and Nursing Notes reviewed: Patient is afebrile, she is tachycardic with a pulse of 128, blood pressure is elevated 156/99, she is not hypoxic with pulse ox of 100% on room air General: Awake, alert, oriented, no acute distress, lying comfortably on the stretcher HEENT: Normocephalic atraumatic, mucous membranes are moist and pink, eyes are clear, normal conjunctiva, vision is grossly intact, posterior pharynx is normal in appearance. Neck: Supple, no meningeal signs, no anterior or posterior cervical lymphadenopathy Chest: Lungs are clear to auscultation with good air entry, there is no wheezing rhonchi or rales appreciated no accessory muscle use, patient is speaking in complete sentences-no chest wall tenderness to palpation CVS: Regular rate and rhythm S1-S2, tachycardic at triage at 128, tachycardic on her EKG at 114 no murmurs rubs or gallops, pulses are brisk and equal bilaterally ABD: Soft, nondistended, nontender, no rebound guarding or rigidity, bowel sounds are normal, no pulsatile masses appreciated Extremities: Moving all extremities, no lower extremity tenderness or swelling noted, negative Homans' sign, pulses are brisk and equal bilaterally Skin: Normal in appearance without rash,pallor, petechiae or purpura Neuro: No focal deficits Constitutional Vital Signs, click to edit/add: Last Vital Signs Temp 98 F 04/29/24 22:52 Pulse 103 H 04/30/24 00:31 Resp 13 04/30/24 00:31 BP 135/84 04/30/24 00:31 Pulse Ox 100 04/30/24 00:31 O2 Del Method Room Air 04/29/24 22:52 Course Vital Signs Vital signs: Vital Signs Temperature 98 F 04/29/24 22:52 Pulse Rate 128 H 04/29/24 22:52 Respiratory Rate 18 04/29/24 22:52 Blood Pressure 156/99 H 04/29/24 22:52 Pulse Oximetry 100 04/29/24 22:52 Oxygen Delivery Method Room Air 04/29/24 22:52 Temperature 98 F 04/29/24 22:52 Pulse Rate 103 H 04/30/24 00:31 Respiratory Rate 13 04/30/24 00:31 Blood Pressure 135/84 04/30/24 00:31 Pulse Oximetry 100 04/30/24 00:31 Oxygen Delivery Method Room Air 04/29/24 22:52 MDM - Chest Pain MDM Narrative Medical decision making narrative: This 29-year-old female who has recently had episodes of tachycardia for the past month that was thought to possibly be related to being on Adipex presents for evaluation of an elevated pulse tonight with sensation of pressure in her chest. She recently had blood work done including thyroid functions which were normal. She has been referred to cardiology but cannot get in for the next 2 weeks. The patient states she was in this area visiting friends when she started to feel her pulse racing and it felt different than normal. She states she started to feel dizzy on the way to the hospital with some ringing in her ears. She did not pass out. She is not on any blood thinners or blood pressure medications. She has been told in the past that when she has 1 of these episodes she should come to the emergency department so that it can be documented. An EKG was performed that was a sinus tachycardia at 114 bpm with normal intervals and a normal axis. 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. She was medicated with a liter of normal saline due to the tachycardia and a cardiac workup was ordered. She has a normal white count hemoglobin. She has a normal troponin, normal D-dimer and her electrolytes are normal with a mildly low potassium of 3.4, liver function tests are normal. She was placed on the platform material handler manager upon arrival to remain on the platform material handler manager while here. Her pulse came down to 99-100 prior to her labs coming back. The results of her labs were discussed with her and she was given a copy to share with the drying equipment operator when she is able to be seen. She was also given a copy of her EKG. She was encouraged to rest, drink plenty of fluids and return the emergency department for ongoing or worsening symptoms or any concerns. Lab Data Attestation: I reviewed the patient's lab results. Labs: Lab Results 04/29/24 Range/Units 23:04 WBC 7.5 (4.0-11.0) 10^3/uL RBC 4.86 (4.20-5.40) 10^6/uL Hgb 15.1 (12.0-16.0) g/dL Hct 45.7 (36.0-48.0) % MCV 94.0 (81.0-99.0) fL MCH 31.1 (26.7-34.0) pg MCHC 33.0 (29.9-35.2) g/dL RDW 11.8 (11.0-15.0) % Plt Count 277 (150-450) 10^3/uL MPV 10.8 (9.5-13.5) fL Neut % (Auto) 58.4 (43.0-75.0) % Lymph % (Auto) 32.8 (20.5-60.0) % [place] % (Auto) 6.2 (1.7-12.0) % Eos % (Auto) 1.9 (0.9-7.0) % Baso % (Auto) 0.4 (0.2-2.0) % Neut # (Auto) 4.4 (1.4-6.5) 10^3/uL Lymph # (Auto) 2.5 (1.2-3.8) 10^3/uL [place] # (Auto) 0.5 (0.3-0.8) 10^3/uL Eos # (Auto) 0.1 (0.0-0.7) 10^3/uL Baso # (Auto) 0.0 (0.0-0.1) 10^3/uL Abs Immat Gran (auto) 0.02 (0.00-0.03) 10^3/uL Imm/Tot Granulo (auto) 0.3 (0.0-0.5) % D-Dimer <0.19 (<=0.59) mg/L FEU Sodium 141 (136-145) mmol/L Potassium 3.4 L (3.5-5.1) mmol/L Chloride 104 (98-107) mmol/L Carbon Dioxide 30.1 (21.0-32.0) mmol/L Anion Gap 10.3 BUN 9.0 (7.0-18.0) mg/dL Creatinine 0.79 (0.55-1.02) mg/dL Est GFR ( Amer) >60 (>=60 mL/min/1.73m^2) Est GFR (Non-Af Amer) >60 (>=60 mL/min/1.73m^2) BUN/Creatinine Ratio 11.4 Glucose 131 H (74-106) mg/dL Calcium 9.1 (8.5-10.1) mg/dL Total Bilirubin 0.2 (0.2-1.0) mg/dL AST 19 (15-37) U/L ALT 40 (14-59) U/L Alkaline Phosphatase 114 (46-116) U/L Troponin I High Sens <4.0 L (4.0-51.3) pg/mL Total Protein 7.4 (6.4-8.2) g/dL Albumin 3.8 (3.4-5.0) g/dL Globulin 3.6 g/dL Albumin/Globulin Ratio 1.1 ECG Data Attestation: I personally reviewed and interpreted this ECG as follows: (Sinus tachycardia at 114 bpm, normal axis, normal intervals, no acute ST segment elevation or T wave inversion) Discharge Plan Discharge Chief Complaint: Chest Pain Clinical Impression: Chest pain, Sinus tachycardia Patient Disposition: Home, Self-Care Time of Disposition Decision: 00:45 Condition: Good Print Language: Kyrgyz Instructions: Noncardiac Chest Pain (ED), Tachycardia (ED) Referrals: VENU HERNANDEZ [Primary Care Provider] - 1 week Kurtis Sharpe MD [Physician] - As soon as possible Discharge Date/Time: 04/30/24 01:00
[2024-04-29 23:30] VITALS: BP 133/92; PULSE 113; O2SAT 100
[2024-04-29 23:33] LABS: Basophils Percent Auto 0.4 % (0.2-2.0); Eosinophils Absolute Auto 0.1 10^3/uL (0.0-0.7); Eosinophils Percent Auto 1.9 % (0.9-7.0); Hematocrit 45.7 % (36.0-48.0); Hemoglobin 15.1 g/dL (12.0-16.0); Immature Granulocytes Abs Auto 0.02 10^3/uL (0.00-0.03); Immature Granulocytes Pct Auto 0.3 % (0.0-0.5); Lymphocytes Absolute Auto 2.5 10^3/uL (1.2-3.8); Lymphocytes Percent Auto 32.8 % (20.5-60.0); Mean Corpuscular Hemoglobin 31.1 pg (26.7-34.0); Mean Platelet Volume 10.8 fL (9.5-13.5); Monocytes Absolute Auto 0.5 10^3/uL (0.3-0.8); Monocytes Percent Auto 6.2 % (1.7-12.0); Neutrophils Absolute Auto 4.4 10^3/uL (1.4-6.5); Neutrophils Percent Auto 58.4 % (43.0-75.0); Platelet Count 277 10^3/uL (150-450); Red Blood Count 4.86 10^6/uL (4.20-5.40); Red Cell Distribution Width 11.8 % (11.0-15.0); White Blood Count 7.5 10^3/uL (4.0-11.0)
[2024-04-29] MEDS: 0.9 % SODIUM CHLORIDE 1,000 ML 1000 ML IV (23:35)
[2024-04-29 23:46] LABS: D Dimer <0.19 mg/L FEU (<=0.59)
[2024-04-29 23:50] LABS: Alanine Aminotransferase 40 U/L (14-59); Albumin Globulin Ratio 1.1; Albumin Level 3.8 g/dL (3.4-5.0); Alkaline Phosphatase 114 U/L (46-116); Anion Gap 10.3; Aspartate Amino Transferase 19 U/L (15-37); BUN Creatinine Ratio 11.4; Bilirubin Total 0.2 mg/dL (0.2-1.0); Calcium 9.1 mg/dL (8.5-10.1); Carbon Dioxide 30.1 mmol/L (21.0-32.0); Chloride 104 mmol/L (98-107); Estimated GFR (African America >60 (>=60 mL/min/1.73m^2); Estimated GFR (Non-African Ame >60 (>=60 mL/min/1.73m^2); Globulin 3.6 g/dL; Glucose 131 mg/dL (74-106); Potassium 3.4 mmol/L (3.5-5.1); Sodium 141 mmol/L (136-145); Total Protein 7.4 g/dL (6.4-8.2); Troponin I High Sensitivity <4.0 pg/mL (4.0-51.3)
[2024-04-30] VITALS: PULSE 112; O2SAT 98
[2024-04-30 00:30] VITALS: PULSE 99; O2SAT 100
[2024-04-30 00:31] VITALS: BP 135/84; PULSE 103; O2SAT 100
== END 2024-04-30 01:00 | disposition home or self-care (01) ==
PROVIDERS: Emergency Provider Emergency Medicine; PCP Nurse Practitioner Family
DX: R00.0 Tachycardia, unspecified (principal); R07.9 Chest pain, unspecified
CPT/HCPCS: 36415; 80053; 84484; 85025; 85378; 93005; 99284

== ENCOUNTER 2024-07-07 14:33 | Outpatient (OUT) | payer MEDICAID, SELFPAY ==
--- OUTSIDE RECORDS SUMMARY | 2024-07-07 14:55 | XMS_ITS | CCD ---
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 Name Role Phone FIGALISTAIR, JOSE A Unavailable [...] Care Provider MD Nick Ng Attending Provider [phone] ELYSE Mueller Attending Provider HAYDEE ., DR STALEY Admitting Unavailable HAYDEE [...] NIMESH Consulting Unavailable LONG, EDVIN Consulting Unavailable HAYDEE ., DR STALEY Admitting [...] Consulting Unavailable MD Darci Chen Attending Provider [phone] Rohrbacher, [employer] LIAISON AND SPECIAL STAFF Amanda Primary Care Provider MD Darci Chen Attending Provider [phone] Darci Chen Unavailable Rohrbacher, [employer] SPECIAL STAFF Amanda Attending Provider [phone] Rohrbacher, Amanda Admitting Unavailable Rohrbacher, Amanda Attending Unavailable Rohrbacher, Amanda Primary Care Unavailable Darci Chen Admitting Unavailable Darci Chen Attending Unavailable Rohrbacher, Amanda Primary Care Unavailable Darci Chen Admitting Unavailable Darci Chen Attending Unavailable Rohrbacher, Amanda Primary Care Unavailable Darci Chen Admitting Unavailable Darci Chen Attending Unavailable Rohrbacher, Amanda Primary Care Unavailable Rohrbacher FELT CARBONIZER, Amanda A Primary Care Provider Unavailable Rohrbacher FELT CARBONIZER, Amanda A Primary Care Provider Unavailable Primary Care Provider UnavailALESSAI Alberto Attending Unavailable ROHRBACHER, AMANDA Primary Care Unavailable Rohrbacher, Amanda Primary Care Unavailable Kalie Diaz Attending Unavailable Kalie Diaz Admitting Unavailable Rohrbacher, Amanda Primary Care Unavailable Rohrbacher, Amanda Primary Care Unavailable Emiliano Weston Attending Unavailable Emiliano Weston Admitting Unavailable Rohrbacher, Amanda Primary Care Unavailable Deidre Jaylen K Attending Unavailable Vicente Jiangg K Admitting Unavailable Rohrbacher, Amanda Admitting Unavailable Rohrbacher, Amanda Attending Unavailable Rohrbacher, Amanda Primary Care Unavailable Kalie Diaz Admitting Unavailable Rohrbacher, Amanda Primary Care Unavailable Kalie Diaz Attending Unavailable ROHRBACHERAMANDA Referring Unavailable ROHRBACHER, AMANDA Primary Care Unavailable CALVIN, KALIE Attending Unavailable HAYDEE, JASMEET Attending Unavailable CALVIN, KALIE Attending Unavailable CALVIN, KALIE Attending Unavailable CALVIN, KALIE Attending Unavailable HAYDEE, JASMEET Attending Unavailable CALVIN, KALIE Attending Unavailable CALVIN, KALIE Attending Unavailable CALVIN, KALIE Attending Unavailable Allergies Allergy Classification Reported Allergen(s) Allergy Type Date of Onset Reaction(s) Facility (1 source) Unable to Assess Drug allergy (disorder) [facility] Repository (1 source) No Known Medication Allergies; Translations: [No Known Medication Allergies] Propensity to adverse reactions to drug (disorder) [facility] Repository Medications Current Medications Medication Drug Class(es) [...] Nov, Active citalopram 20 mg oral tablet (12 sources) Serotonin Reuptake Inhibitor Start: 03-03-20 24 [...] 10 MG Oral for 10 Days Active Potassium (8 sources) Start: 03-16-20 Potassium 99 MG tablet 03/16/2024 Active Completed/Discontinued Medications Medication Drug Class(es) Dates Sig (Normalized) Sig (Original) aspirin 81 mg oral tablet (12 sources) Platelet Aggregation Inhibitor, Nonsteroidal Anti-inflammatory Drug take 1 tablet by mouth once daily Aspirin 81 81 MG 1 tablet Orally Once a day Not-Taking fluconazole 150 mg oral tablet (3 sources) Azole Antifungal Start: 06-09-2024 End: 06-14-2024 take 1 tablet by mouth once, then take 1 tablet by mouth once fluconazole (Diflucan) 150 MG tablet Indications: Yeast infection Take 1 tablet (150 mg) by mouth 1 (one) time for 1 dose This is a 1 time dose, take single tablet by mouth. 1 tablet 1 06/09/2024 06/14/2024 Discontinued fluticasone propionate 0.05 mg/actuat metered dose nasal spray (5 sources) Corticosteroid Start: 06-13-2023 End: 02-04-2024 take 2 spray(s) nasal route once daily fluticasone (Flonase) 50 MCG/ACT nasal spray Administer 2 sprays into each nostril Daily 06/13/2023 02/04/2024 Discontinued 24 hr metFORMIN hydrochloride 500 mg extended release oral tablet (19 sources) Biguanide Start: 12-09-2023 End: 06-22-2024 take 1 tablet by mouth every twenty-four hours at mealtime metFORMIN XR (Glucophage-XR) 500 MG 24 hr tablet Indications: Encounter for weight management Take 1 tablet (500 mg) by mouth in the evening. Take with meals Do not crush, chew, or split. 30 tablet 11 12/09/2023 06/22/2024 Discontinued (Other) take 1 tablet by mouth every twe nty-four hours metroNIDAZOLE 500 mg oral tablet (1 source) Nitroimidazole Antimicrobial Start: 06-11-2024 End: 06-22-2024 take 1 tablet by mouth in the morning metroNIDAZOLE (Flagyl) 500 MG tablet Indications: BV (bacterial vaginosis) , Trichomonas infection Take 1 tablet (500 mg) by mouth in the morning and 1 tablet (500 mg) before bedtime. Do all this for 7 days. Do not drink alcohol while taking this medication. 14 tablet 06/11/2024 06/22/2024 Discontinued (Other) phentermine hydrochloride 37.5 mg oral tablet (20 sources) Sympathomimetic Amine Anorectic Start: 12-09-2023 End: 06-22-2024 take 1 tablet by mouth before mealtime phentermine (Adipex-P) 37.5 MG tablet Indications: Encounter for weight management Take 1 tablet (37.5 mg) by mouth in the morning. Take before meals. 30 tablet 04/07/2024 06/22/2024 Discontinued (Other) take 1 tablet by goyo th once daily before breakfast Phentermine HCl 37.5 MG take 1 tablet by mouth every morning BEFORE BREAKFAST Oral for 30 Days Active propranolol hydrochloride 40 mg oral tablet (13 sources) beta-Adrenergic [place] Start: 03-24-2024 End: 06-22-2024 take 1 tablet by mouth once daily propranolol (Inderal) 40 MG tablet Take 40 mg by mouth Daily 03/24/2024 06/22/2024 Discontinued (Other) Start: 05-29-2023 End: 02-04-2024 take 1 tablet by mouth in the morning propranolol (Inderal) 40 MG tablet Take 40 mg by mouth in the morning. 05/29/2023 02/04/2024 Discontinued Problems Active Problems Problem Classification Problem Date Documented Date Episodic/Chronic Abdominal pain (20 sources) Pelvic and perineal pain; Translations: [Pain in female pelvis] Onset: 09-05-2021 Episodic Cardiac dysrhythmias (3 sources) Sinus tachycardia; Translations: [Tachycardia, unspecified] Onset: 05-13-2024 05-11-2024 Episodic Chronic obstructive pulmonary disease and bronchiectasis [...] anovulation; Translations: [Anovular menstruation] Onset: 05-08-2022 Chronic Fluid and electrolyte disorders (2 sources) Hypokalemia; Translations: [Hypokalemia] 06-09-2024 Episodic Fracture of lower limb (4 sources) Displaced fracture of medial condyle of right tibia, initial encounter for closed fracture; Translations: [Nondisplaced fracture of right tibial spine, initial encounter for closed fracture] Onset: 09-27-2021 Resolved: 12-06-2021 Episodic Headache; including migraine (2 sources) Headache; including migraine; Translations: [Headache, unspecified] Onset: 05-27-2023 Immunizations and screening for infectious disease (3 sources) Encounter for screening for human papillomavirus (HPV); Translations: [Exposure to sexually transmissible disorder] Onset: 08-22-2021 06-09-2024 Episodic Joint disorders and dislocations; trauma-related (18 sources) Patellofemoral disorders, right knee; Translations: [Patellofemoral syndrome of right knee] Onset: 02-21-2016 01-27-2023 Chronic Menstrual disorders (18 sources) Irregular menstruation, unspecified; Translations: [Missed period] Onset: 05-08-2022 01-27-2023 Chronic Mood disorders (1 source) Mood disorders; Translations: [DEPRESSION UNSPECIFIED] Onset: 10-03-2021 Mycoses (2 sources) Mycosis; Translations: [Candidiasis, unspecified] 06-09-2024 Episodic Other endocrine disorders (5 sources) Polycystic ovarian [...] other diseases of the nervous system Episodic Residual codes; unclassified (1 source) Pain, unspecified; Translations: [Pain, unspecified] Onset: 05-21-2024 Episodic Unclassified (1 source) Unknown / UNK(Unknown) Onset: 11-18-2016 Unclassified (1 source) CONTACT W/AND (SUSP) EXPOS COVID-19; Translations: [CONTACT W/AND (SUSP) EXPOS COVID-19] Onset: 09-14-2021 Unclassified (1 source) New Patient Onset: 05-13-2024 Past or Other Problems Problem Classification Problem Date Documented Da te Episodic/Chronic Administrative/social admission (20 sources) Patient encounter status; Translations: [Persons encountering health services in other specified circumstances] Onset: 03-11-2024 02-04-2024 Episodic Genitourinary symptoms and ill-defined conditions (1 source) Personal history of urinary (tract) infections; Translations: [PERS HX URINARY TRACT INFECTIONS] Onset: 10-03-2021 Episodic Mood disorders (1 source) Emotional lability; Translations: [EMOTIONAL LABILITY] Onset: 10-03-2021 Episodic Other complications of (17 sources) Missed miscarriage; Translations: [Missed ] Onset: 07-09-2016 01-27-2023 Episodic Other connective tissue disease (17 sources) Muscle weakness; Translations: [Muscle weakness (generalized)] Onset: 09-09-2016 01-27-2023 Episodic Other lower respiratory disease (17 sources) Cough; Translations: [Cough] Onset: 01-27-2023 01-27-2023 Episodic Other non-traumatic joint disorders (19 sources) Pain in right knee; Translations: [Pain in joint, lower leg] Onset: 09-09-2016 01-27-2023 Episodic Other non-traumatic joint disorders (17 sources) Limitation of joint movement; Translations: [Stiffness of unspecified knee, not elsewhere classified] Onset: 09-09-2016 01-27-2023 Episodic Other screening for suspected conditions (not mental disorders or infectious disease) (20 sources) Encounter for screening for malignant neoplasm of cervix; Translations: [ care status] Onset: 07-08-2016 Episodic Unclassified (1 source) Intractable chronic migraine with aura and without status migrainosus G43.E19 Viral infection (17 sources) Viral disease; Translations: [Viral infection, unspecified] Onset: 01-27-2023 01-27-2023 Episodic Results Test Name Value Interpretation Reference Range Facility RECURRENT VAGINITIS (HTRX)on 06-11-2024 ATOPOBIUM VAGINAE 27.705 Abnormal [facility] ATOPOBIUM VAGINAE Detected Abnormal [facility] BVAB 2,3 (BACTERIAL VAGINOSIS ASSOCIATED BACTERIA 2, 3); MOBILUNCUS SPP 23.788 Abnormal [facility] BVAB 2,3 (BACTERIAL VAGINOSIS ASSOCIATED BACTERIA 2, 3); MOBILUNCUS SPP Detected Abnormal [facility] Healthcare RAMAKRISHNA ALBICANS, PARAPSILOSIS, TROPICALIS 24.65 Abnormal [facility] Healthcare RAMAKRISHNA ALBICANS, PARAPSILOSIS, TROPICALIS Detected Abnormal [facility] Healthcare RAMAKRISHNA GLABRATA 0 [facility] Healthcare RAMAKRISHNA GLABRATA Not detected [facility] Healthcare RAMAKRISHNA KRUSEI 0 [facility] RAMAKRISHNA KRUSEI Not detected [facility] Healthcare CHLAMYDIA TRACHOMATIS 0 [facility] Healthcare CHLAMYDIA TRACHOMATIS Not detected [facility] Healthcare GARDNERELLA VAGINALIS 0 [facility] Healthcare GARDNERELLA VAGINALIS Not detected [facility] Interpretation and review of laboratory results Abnormal [facility] Healthcare MEGASPHAERA (TYPES 1, 2) 0 [facility] MEGASPHAERA (TYPES 1, 2) Not detected [facility] MYCOPLASMA GENITALIUM 0 [facility] MYCOPLASMA GENITALIUM Not detected [facility] NEISSERIA GONORRHOEAE 0 [facility] NEISSERIA GONORRHOEAE Not detected [facility] TET B, TET M 19.035 Abnormal [facility] TET B, TET M Detected Abnormal [facility] TRICHOMONAS VAGINALIS 17.579 Abnormal [facility] TRICHOMONAS VAGINALIS Detected Abnormal [facility] Coding Summaryon 05-27-2024 Coding Summary HTMLBase 64 IirstgwwZAk0sCh+PGhlYWQ+PE1FV TNuD98zgDXebZ8tY8RYJNqVYgprJS FFBCiBYaAdafCgUY6ssMAqWANz IC8+HS8kWUArXqynuYXss6S8cPB5Y 91caa0oWDznwLJ3OLAsPxXftvims0 ltwGf4FGioYjevRhUj LZTkcW63QCT1yD65Hm80tZCzoPHif 5wfrZu3RyUbSIZcBYX3gMklTMbql4 KbZJDdE44hzDIgd9E1 XQOtnKawvNHfGdQmmEP8hM2cYMccw gxpl5sgrkmjByu8wv84hSRee2M1yB F9X2ZzvpI5SSVhlRRp XqfzcCQEeX9vjdfne1lxhwxbUbZuL QIhHKz4PSn1TDWfqBihEnEpZQ37WH D9XKJunhYfN9ZlXONb mDnoKaN4t6E7Id7FT2QPVoovH0VQZ UFSWTwvdGQ+QY38uk83D5LkOmcjGy n4YZWoQEY5cHP7lD7n IBLlDBylx6U0ySQ5U2IoooVhnq5rb 6gwMUMlPHtqI03xeRAhg3A3QDLhpI P0LTYvkFclNvZhrM12 Oyc+DONyjXibo1ZoMcezi9lbq5upt Tk6YlumZJUegkIdyNrtUEW1j7VzSo 1pUVFraFG2iMI7hO8x WkWtUqH0YMnrD957XkWkxMIbKytrK 09wK5VxqKN+WIDhKhp2NUAqpRijNK 8sP6YqRYIxomgejLYm iBqvPW3eUNUmifuzCUFfhX6oDLRrB 3z7SzHdUnX1NOxmU4PdABCewwnvJz 75xV1oBxGzSnR4QMml R6QfgmJ3UKXioMIwROzeAHA0Z25as 6Z7EGIqQNFhOKK3uDB3cD9zuZfkic ogbGVmdDsgdmVydGlj VUsfYOyaK752BPZtcNgxHiShGTsaP yBEYXRlOiAgMDEvMzAvMjAyNTwvdG Q+FRZfGVH8dHdsDBUv sAXbJGgpHv4nlTyqxHvsAW2rBAKtz basJUMcaK2rUKUojUKcrElkAB3xCD Myywgoa929AxIwXZT3 IMDmbMBqP3XsjB6lKrMhQAWwSNIvK 0OvbYFjLFuzP871UUoiWkE4CWYnqj GuS3OgBGGnjMamUzF9 i6T9Kw5Tj7UupmexX7GndZDoLsQhP pihEEx5Y1IrBykygQK+XB88CTDfLP 66ZOa8RZT1xVicITlh URFwW2CcuN2nWvChUNGtBRQoDso+P HRhYmxlIHdpZHRoPScxMDAlJyBzdH myUU3yJy2mJFZgUGNw wDypiIAfKcTcb4xjDQVcDJhsLI7gu NuyU0BliFK7GGWuj2v7Tx09O23dC3 JvdXA+ZQEeiEI5kXQ5 tZ1hIwAqPfI1QCnkC857LtNlaDTuK crqb7ylh7bbcDx5QzM7OHDdfaZbfH wvNKG0x0OoVj69G32d SRdxRNKzOMTvMDGbNHEjpIwxif6bw G9wIi8+HOIecRI5xWU2dM1bNkRbEo H3BIkdW245HsLsdBGw Sthcj5siw2fkmIv9AuNuFVIwqpOax IjiTAO6t3JsOl72S8MawUrcq3RcTb k2nt23fMKbs5D1iYA4 N5FgNQTytanyjVOwiBujSF9wYWPtv zgpSDMxqO1fBCKnT3k2FyTnJjR3SE ndM2DnxaW2NDVjbKKp MFFigXJTiV5bpjiaf8ubxxduJpSjA DCoVHe1HYi1RMRsfKoqJkJxUKP6Mn I7YVD6lFYamD5gpJgg ihgiqI3uWge+MMU4lLZqwVMRAO3sS jwvdGQ+KGSrQCH4eZthHUyhPQDbdQ 8tXLHcN5t5TpAsMvX5 WDrtP6ItxmJ6ELXzhARqUYKajXNYm F1ekqewn7uzimqnRgQgXIPqYCz9HE c8MLCgrKvcLyUiIPN4 GeV8DVX1fCZgnP9uoXwqxqfaeT0zK yc+ZldhgFvhKCW1RFl5E0BdXdp1TJ XbtNmuBK1kmLSpJHwr Qw7rwWrihWapZX3vOWHcoysyh179D tSbq1hkXXVriPTuDEbfDWW5U35pz1 M1ADCxZRClWAF7tPP0 cP8ctCwerqvthAUzdRcnyjLlnCqgE LxzZGtxV344FKCqiAtqAqVlRAq9S2 RuLoa6AJFwbRdkNN4u lYOhDQyhCz2fcOinkRwlMG0uLKVnb uiiy088WqZiy8beAPRheASfTDryOW G7C31qh3T3BLBzZXZp CZM8rJH7uE3ggMmkjqejcATdxOizn hWdfPakOLolODueJ112MABkjUbtPm FxtFa5D8PrTuc3JETl cBoaFE5spQMaUYpdOy9ymHqtpTylP F9iRHNlsfdgx534KvBos1zeXZFirZ UdNZuaQLD2Q89aa1M3 ENCcWLDsPVJ2lHC1cS2eeHcljxqkq HOnjAoydqZgwKmiVGfuJEnxH122EI RvcDsnPlBhdGllbnQg FXycUCp0H1ElPczpeCU+CH97GJNtN Z55bEGfpJObt9zjqJf6CzNfDGBgZQ M3aMesLVqrf3PqPTUa O43foOPpx8S6XBYpgFyvoVDjSrZus TY1wY9eNMkrsxyfv3ldpxtiZxvkq2 jndg02qN74R38eCZvj IVUrMQShHDNuNLSnaZzshb8hhS8lR i8+XXWyeOA3wNL1vD3xRBWmVbC3ZD xsE145ElMswXHmUuwm i3eiy5joqVw3UtY9APBfrpBbmLxaM AU8q4TiEy00Z46kSTolRPFiCRShUE ZdOOKxvGisfo1tjV0e Ii8+XXHabLY9gON3qQ1nWzXbNbN3Y NmjO648XwBlcQDlKjfjB12eE4NjnW A+UDJvHzi3FPEpzOcb NE0xsAXcWXyeRw9xLEM2LjGqWdFbE DvqG2OpPYQdspmjplqyiSA4KJEvAB HmbI89Ti0quYxkQHPe uJCSsU9nbujmm1paaekkUnCkFMKaI Ws8JZo4VCLqyRydZuUqMYO7QwB7DM Q0cTRfaX7kwSbrpvgt sJ5pW5ZmMTIuyflvDi14zP5hFlYbE tL6TOcmQdd+POXYDPLSVnupG0qDZX XSSVyMPj68N5FmPho3 KCLifFtzVQ0bqZEkZYjlZo9wvAhfd CvzWZ8lYAMyibgnQHXpiJ9dVSTusU PpfSckIO1rIMTsjfqy w664NqQwFSX7XEIxiAXgQ6MyfE4zT cUzFNTnMWGdT5JgdZDaTOzaM873OV gtEvC2YFXrgkOcE4Ot DZGuaRkjMzG1q4W2Gb2gWv0lId5yO Kq5FX72VY94qZDwu9Y3eGD1V2DpHH XrialoimtkjAK7IBZq CNCaqE06cJIlSKxdOs8pp5G1i805Q PPwQVWlvQ15Vh3ugKanQOLduYTYuH 8fsenzc9ratkqpReFe LOWqFGf1IMv1DGLtvUwaVfNeBBM0Q lJ9LRB1wQBblM3uvWtwprnpmQ3hRe c+BhubXKJvhnL6F9Bb Wqu4AJEhsUkaOL0shNMbWFlwBh7rg XieqNdpKS8iDFRbptnmFYIjaD8pQN SjwNNgsRfpAH8eKDLp noehz471BvFpXNX3MFKomJKlT6Csv L5zSnXlCZUgCOCtX2WodTNzMKhsZ5 62GYtsTfZ9JORptbRp H5WaGVMeuBedTdY8w5K8Hu3ERU8AY OA3B0QkNfq1QQXkjFskDF7ayOSpNM rwKz2fiLplrSckEB0q IZQqdyfzMDJksE7tPTZhcYChxKrcM G1yIXNvydtei837MlCjKBK0IUMrzW IiR5ZytA4nNfUxGILv KEWuT4MdwLMkPYoyW525RCllMeQ1T VMyerKiM6IvVNTedCulSkZ0t7V7Xc 5PUDwvdGQ+ZI92qu94 I0KqTnxiVqh3VJVpXVH0jPF7dX1tA AUnRUetk9L0oWN6T1DeguLsay7eg7 yiIRZhAUfwQ11orAZg v6L2FKApfLZ3OSIgiAilCcParU67G yc+OGCywOgng5NwTuapy4veo3pziJ x5SdChBPCdlbMovRdn RKH0z8TqMt29Z19bNEnwQZEuORPsN AAwVGWwlMubto3hlE4cRq6+PGNvbC K1mPD0gN1gQoTvQsZ1 QFlzD782CgUhcOPdBzmyq0hzo7yly Hr1HhRnDJZwccBpfRpqBWT7s0KjIs 82M5HlrPwrp2QsLez4 xj81cLKsd9Y9lWD7B7FdXZBeeqfrq KRrvNptRM3rWTHkrqzmVEUhnH3lRJ NdH0z0YjCkXdD0KQlp I4SnbiQ3ZWRxwPGxXJPfpDUThA6bw qqsn9kqzdkfDbXdHDPwREg7TSp7UC UhaPsyEpMvPKL8XoL7 HOW7oJFmmG1peWoirigtmL8fTjv+U Jz4g9smuXMcIA7yuIM5UC46FW44yK Qnk6I1uCT3E3AiMYUj mtewqahzgEJ6ZWIqXSKatD31Vy3tm KfaDn5qLKHaKDQ2IUIxfVZdR5LvtJ 2xWdUmZKTtEYKaL0Ca gPKnSJcyA807DEzvSkE8GTWhdlHyT 2UeDXNolPaqQzD0e0X3Og0SJJ59DD 67GI07nRAum8Q2aHR3 L4UkMYYgqxxviucqmCR9SFTpUHGqs X50Zg1pyZtyOl9tCHWkFOP8CYYwzE IyY1RugQ7kIsTmKCKh CYTlP4WjiNJvXReeT444IGdrPmV9T COlfzHeO4XlGLTvaKrwRiP7i4V7Jg 4SXj70TI98BQ92cPYp i6O6gXX9A4NiQHPgkfgaabaznMQ2F HClLTTteY52Uk8unAynPc8zOVCtXQ C4MIHqeNOgS9MqxV7a IrXwJLEyTFOhE8RybVDfUKenC538U IxdMaF9VFZqkpYcW9PgZMYxeAyaHv V8c4Y7Vv3LKLvxuck6 U2ZaHsonvAV+SQ59FQRzXZ61lNHwy XEpl2uytXd9WbEfTPPwYAI2bFokLS tph3XuCSRpE86nrJQt c2U (more content not included)... Normal [facility] Holter Monitoron 05-26-2024 Holter Monitor [id number] Normal [facility] Triage Panel 10on 05-21-2024 Drug Screen Complete Collected Normal [facility] Comment on above: Performed By: #### 2 [id number] ####[facility] (DEFAULT)[address] [place] [address] US Echocardiogram Completeon 05-19-2024 US Echocardiogram Complete APPROVED REPORT EXAM: Comprehensive 2D, Doppler, and color-flow Echocardiogram BSA: 2.40 m2BP: 122/80 mmHg Rhythm: NSR Indications: Palpitations Past Med. Hx: PCOS Conclusion Left ventricular systolic function is normal. Left Ventricle The left ventricle is normal size. There is normal left ventricular wall thickness. LV apex is somewhat trabeculated. Left ventricular systolic function is normal. LVEF is 55-60%. There is normal LV segmental wall motion. The left ventricular diastolic function is normal. Right Ventricle The right ventricle is normal size. The right ventricular systolic function is normal. Atria The left atrium size is normal. The right atrium size is normal. Aortic Valve Aortic valve is trileaflet. Adequate excursion of aortic valve leaflets. There is no aortic valvular stenosis. No aortic regurgitation is present. Mitral Valve The mitral valve is normal in structure. There is no mitral valve regurgitation noted. Tricuspid Valve The tricuspid valve is normal in structure. There is no tricuspid valve regurgitation noted. Pulmonic Valve The pulmonary valve is normal in structure. Trace pulmonic regurgitation. Great Vessels The aortic root is normal in size. IVC is normal in size and collapses >50% with inspiration. Pericardium There is no pericardial effusion. 2D Dimensions RVDd 3.57 (2.1-3.2cm)LV EDV (Teich) 95.65 mL RV Minor (Base)3.96 cmLV ESV (Teich) 47.46 mL IVSd 0.82 cm Left Atrium 2.92 cm LVDd 4.57 cm Aortic Root 3.21 cm PWd 0.83 cm LVDs 3.40 (2.1 - 4.0 cm) LV Ylmv723.12 g LVOT Diameter 2.22 cm IVC1.28 (<= 2.1cm) M-Mode Dimensions TAPSE 1.6 (>1.7) LV Volume - Method of Disks (Berrios's) Single Plane 2D LV VolumesBiplane 2D LV Volumes LV EDV H7R469.0 mLLV EDV BP114.54 mL LV ESV A4C44.7 mLLV ESV BP47.4 mL LVEF(%) A4C56.2 %LVEF(%) BP58.59 % LV EDV G4I745.0 mLLV EDV BP Index47.79 mL/m2 LV ESV A2C47.1 mLSV (BP)67.10 mL LVEF(%) A2C62.0 %SV (BP) Index28.00 mL/m2 CO BP4.8 L/min Left Atrium Volume Systole (Method of Disks) Single Plane 4 CH 35.24 mLBiplane LA Xznaig99.20 mL Single Plane 2 CH28.95 mL Right Atrium Area Systole RA Systolic Area A4C19.45 cm2RA Systolic Vol A4C58.50 mL Aortic Valve AoV Peak Velocity1.14 m/sLVOT Peak Velocity1.03 m/s AO Mean Velocity0.76 m/sLVOT Mean Velocity0.60 m/s AO Peak PG5.23 mmHgLVOT Peak PG4.28 mmHg AO Mean PG2.64 mmHgLVOT Mean PG1.79 mmHg AO V2 VTI18.50 cmLVOT V1 VTI18.44 cm KATIE (Vmax)3.50 qs2WDVA Area 3.87 cm2 KATIE (VTI)3.86 cm2SV (LVOT) 71.43 mL Indexed KATIE (VTI)1.61 cm2/m2 Mitral Valve MV E Max Velocity0.72 m/sMV PHT40.61 ms MV A Max Velocity0.37 m/sMVA (PHT)5.42 cm2 E/A Ratio1.93 MV Decel. Qmbr031.04 ms TDI Med e' Uqfsldyf18.44 cm/sMV E / Medial e' 6.32 Lat e' Hzevowfr45.60 cm/sMV E / Lateral e' 4.11 TV S'12.32 cm/s Pulmonary Valve PV Peak Velocity0.86 m/sPV Peak PG2.95 mmHg AK End Diastolic Robert.61.69 m/s PV Mean PG1.64 mmHg Tricuspid Valve RAP Estimate3.00 mmHg Final Signed (Electronic Signature): Dante Choudhary MD 05/20/24 10:27 a Technologist: [facility] Provider Orderson 05-13-2024 Provider Orders [id number] 03-29-2024 Coding Summary [facility] KbxaqjbfHZk9oTh+PGhlYWQ+PE1FV BZbI19giULxgH6aM8APKThQAhlwZS IFGYbVGrHbjzAyRT5zfDMfLHWf IC8+VG3tTDUiMkfctJWff5S3kJP8V 91qpa4uKLnueYV1WRDrWuVzjfidg5 uisSy1JUkdYywwPsVn TOPxlI49VJE9yD94Oa83dOTkbIKyq 2recBn1NjTwYRJiZGW6jCfgKQyig5 PePJCgI94gfKMsm3S8 XOOnyPpavATqMmQloPE1eF9xDAbud huhc3buoubaKfa5gm67fSBlm1W2cU H7V0PyfoV2ZKWsrYSv WzxjeMVTiB7moujam3etanqhIpCjF GOxKLo4VIg0EGXwlZspToQqLL13IM X8RDEyvbUnU0RtPNYk nAbpOxK4m9B8Av6HR2RDYbsyM8IPS UFSWTwvdGQ+DZ30aa57E7PlHomgKj c3YDAbWRQ9kCN1vO3n MBKhVXjom3X4pCG4G8JabvWmvq6so 7koOTZuPHmoR88cvNVrr1L9HDBphM A9JGAcrHlbKlCoaA50 Oyc+ADEldIejl7ZdOorua1ked4zep Pw1XygfJMCnnxJpjNddYPK6j0SiOz 5nTUEyoWB0tVW9hR8h JxXtNcM8GWlgA802XyHscCMyLyrgU 06hD5FeuWG+EKEzHas4QBMxwApqAP 8hB3RxTFLgtmjtkYLx tXucCZ9fMROacorkLSHdwK0uIWWcL 2o9UpBoTzA5HDqnV3ZwFRHvnpcoCl 11yI6rMyCuTaK8YHtw H3NomxM7RXUpmAFgQVejTTJ4S40or 7X0RSEmODBuCBN6cXJ5mK4npFltyj ogbGVmdDsgdmVydGlj KHvoXXkrS951XQOjmQrkNsTnIZlyK yBEYXRlOiAgMTIvMDIvMjAyNDwvdG Q+LMJtKOA4oEvuNYOi aMPeCNplUd5ycQadnXcuBP8cIPLub hyrGOEuzS0fSJSybYSkgSuoAY4iBV Oumkbab218LiBdJIO1 UVZrdIPfY7RkiO1vMoBiKJDlDWScP 2LaeLVqRUhdN494MLlyKtT9QTWicf KkY7NnEWUobCdgLdM9 o3N5Xx2Ao0WdjncjE9CbjILtUnUrF xmnEZi1Y8IcWnmdvGK+WU62ODRzCS 39NWh2ELZ2gCzeUJfb UKFwD4InrB9gWxUgEBZxLQEbNkb+P HRhYmxlIHdpZHRoPScxMDAlJyBzdH mkJY4tHg4aROMzRKTg fQoheHJyCcEdv4ybQCMpVOxhHT5va KxuB2ZisDP8UADqz4j8Ry97J77iY4 JvdXA+WRIvbNQ1cYG6 eN5sAzYxFaX3PXseU656OgXkvVPfZ zmvq6weh5cpcSy4IsH3WZKqauFubE zhRVT9y5TnAq14Y97a TXrpNCBjFCKrFDSbXKBwlHhodg9bg G9wIi8+WQUdzJE1zPD9eK4zZhTvXu U8YGrxC472DrUhjMZv Eazby4ptg5gviCd4DvYxCTAhvgTpi XlcUCO0d6ZrWs41W7LiyXjxs1RzAo j4xn72dWSza6B5rBW0 M7JeHADvhzwmyHFjyMziYE4wCLHfv sdhBICzfX7uWBFyF5q3KiNvBrW5CA xjU4PljfS3PZWonYWy FKFtcQWOqN1rgmhnl6fuiutxHeFcW QOtNGz9BFg4VNLsuKqsSuWxDNC4Ap H2NWC7wEJsrL3yaEdc fgpzyF4tVrk+RAL5qFUskIWVGI9lZ jwvdGQ+OXGmUMZ4qIooYMnwFLMaeH 3lOGQaK5o3ZhBkHxA6 ZIedO5DqstL7IPTbdXPiTVAbjWASy M9lskfrz6ksvpxuUyOpIDKiNBn9JB v3XWCdaHrfHlFvDVF0 YmF2SYV5tIXtsE8laUbabzdrrL2jE yc+LyhvyBwqWNG6ZSb7P6LxMmu1ZE TaeEtsPL4tjDBrGLlo Xq8suKbmuHgtZT5qGDClxomyr607L lFsm7ieKGWraMKvWZylVCT1F91eu5 I9DKWvJDQjSJJ6pMF7 hY7azLodbtqkfXGclHklxfHcxXmeP UgkZTgiW804XXJzdNbzJbMfJRz8N3 TcYej5SQIfvZamMP1a kZSjNPtgDc2rtWwgqDreDI7hCDIwk hgeq148OcAqz0ekJEErqKXcBYibYZ T6R13rg0W2QHUzBOQv WPO4pHW0jG4kyBwyxmterILcvWmqw iXddAdbKWudCXxvP380NRNvtGtfXc SicVs1B9XmSfe2VPQx uApkBX1igLQiTFypTp2lpEctkCvjZ A2dQMSbvtbnr839EeXnw6roMNJmtT HzPUuwOXV0Z60rg5I9 AQNtVDQqKLD7fYN5hY3zuOzufaevf IZjwNennbFycGvqIKnxPMyzH360WS RvcDsnPlBhdGllbnQg QLnqKDe6M5PsCepdjDI+CU19QRXvR G20aFFmqIXtx0kuuZq4ZhUsOSFvSZ U6uNvgDLckd5JzAIKm J27gnGNhu4W7MVRvjPgsfMKqLvTyp SZ3lL6aKDfevsuno6ievtwuAmfst6 xqrp30gN02C30iDDck LROtXJDaNQDgAPZprFowqi5rcC3oO i8+JOYthAI7oFJ5xI7tVDCwTqO9CW bpL248BcUnxRKwUkrm v3wyb3bvoWt0SdZ2HVLufmIqlQvvJ UJ7r6FqWr37R35oQGtgXWReNWWxRH IfOPVniOpgkl6zmZ1u Ii8+SLPgdJA0kNJ8hT3nLqHtVzQ2G XmvR924UbKuyCHcBjzmI23jC0DmpD A+NNUiLdd6UXVgwSpg BN3xkPMjLMpoZi2vRQR5EqRsFuSgZ SicG5MvMIBugvsjuboavDF0NYOaLD GpiS26Ad1exZfjNWHa cDQSwX7ellfys2kolzhqTwJeZWMsY Fi8LMk8JFVjtBjlTgQfAOU9LoU6RT Q5kIRahY1uaPvfgrsk fN7nK4RkFYYkummaSl37vB8zEyDuI xX8JCycSra+OERKORGMBtasE2hENI WTGPlDWc69B8IlVob6 MOHjaYyaJU0jmUVsABurLv9gnJzod OpmWN7bXCLqnzkaGRJinR0fOBStqS AqsRoqGC2nYTSntyqj j317LnTqQYC2RPZkuPPdF7JjdS7dZ bCyZGRhJEVtF6DhkPTjMVulM663XU frDpD4DHRhuxMoO2Dz PIQqkBxlZlP1w5J9Ja1yFv2sZj6aN Md1JW43LB31kDDzv2D8dIQ3Z4RuQA LwgembbkcilFX8JAYf CRPygJ42bCLgZEhiPh7oh4E2w030G ZRxEEGndJ46Nf6iwBtfGKZahPIRpS 7ednjhd2ayokjqOtPx RXIoCUe5OCl9MVEdsFynHcVaMVD1D cL1SFM1mJNfxT5vuYohrcivoT9aDe c+EaGzOSDwsoN0O5Fq Aoe1NSPqoGurFZ6vbHSqUQjfIf8fs FovlTwjST7jGVFjrmccCXJvqU3gQI VygAJdvBxnVI1rTARn uldld934RxIvVTM6QRYcfIYyD9Yuc P3jSsHdZXTdRXLeI4LmbTMgAFboJ3 46WYdbCcI3OXVnxzKm A1KiANVdmFysEhE4p8O3Ni0BZT5ZX BV5B8LvWjr9TPUwvMyxPQ2qeSSyAI muTm2khEhqaCwsUS4u INFjptevPYSznW5qJCDkyDHepMszO H8zRSOoxvrmp314IlFoTBV5YEGhzQ YfZ1YmfY5pFaEkNVDg HPYxQ5QgsJYpHVttU558BVynMzD1R XHoowYdJ5WgYLRdlNpbXmC1p7X9Cl 5PUDwvdGQ+OP95rt49 T2QiRrfgGaq9GUYiIRH1yHI2lI5vO KXhMLlvg3S0sQK7D2StjsLrfj9pu5 lyVTGmWVkdG89ryECf d9Y8CVHwkNM3PVDphRwwAoHqzY47M yc+NWSuvIcjl6JiQuauk4jps8eefC g1IwCvVPNezhBomXgr FHA5k3YoRg02E38rENihDRCkIPQqP RDnDIFhhRzcrl1wbJ6kMm8+PGNvbC T0sKQ5gK7aTqMbEjQ6 WEnzK914EiLvlTWnWptfd5arm4nxl Wg1ZgHjYEWxenCcmDqbWBD8y5CgTv 08L0NcoYjmx4DqJio5 iw89oNDzx9M1dBU5V5BxRQZmxlzbk JBhlUwoUK6eDKDroeoeXVEvrQ9eGT KxW0r4KtYrZzT5SObj U4VllrW7KMIntZXcPTCdxQRPnS3yt qxrg2xkrmfoZbFsSFYoYUc4OAq6AX FcjFugVaNvUDE6DjA8 OLA2cBYedB0qxOvucjrfsP9lUtd+U Bu7s8ppbKCeKP7rkLH6FR95HB95hT Usr6F7ySE3P8XmQYTp ffmtsbfyrTQ0ZQQiNBQmyT75Gx5as OypPd6yNWQdOTT0NLEyyQTqD9HurG 4tDqDkHZYxLNZgR7Eh bTSiOGbgX811OOtpWqD0QLQyjaImT 7QiKWHkvOluAdX6m2J6Ek7HGT71KO 87BK47uZDxd1D7kWV7 Z3CaAFKmeviaozaurKR4LYTqQVTly Y05Xk9mhLbaJv6pKECvBVE9DVGrfB RgL4JcyE6dDzLbEWKo TWHdM1JywBOrCIgtS700PLrcWeO7V QUhncPeZ2WtPPRhrPkwTzU2h6P9Lf 4SCz23WL42MY74iLHm r2S6xMZ5S5RmFPXetxsgngdikFI0Z VHcLVZxhJ13Yt8juJuxWi2mQOOpAF O4HABzjEIbB1CwdT1t KqZuKRQfYZJaW4GqlQDmMEufS818G EsiEvR0SSRflsUtS5LpQGHsdHogTd B6j0R5Gk1FRDiumuo0 B6TwBpmwtAD+FP27VHFvIO18nCTfq INhh3hhjIc7WmApSXRbYIV5eLpkQV pls0GhQFKpO02xlPVu c2U (more content not included)... Normal [facility] 03-26-2024 eGFR AA >60 Invalid Interpretation Code [facility] Comment on above: Performed By: #### 1 [id number] #### [facility] (DEFAULT) [address] [place] [address] 72289 eGFR Non AA >60 Invalid Interpretation Code [facility] Comment on above: Performed By: #### 1 [id number] #### [facility] (DEFAULT) [address] [place] [address] 97722 Anion gap [Moles/Vol] 11.7 mmol/L Normal 5.0-19.0 [facility] Comment on above: Performed By: #### 1 [id number] #### [facility] (DEFAULT) [address] [place] [address] 66391 Calcium [Mass/Vol] 9.2 mg/dL Normal 8.9-10.3 [facility] Comment on above: Performed By: #### 1 [id number] #### [facility] (DEFAULT) [address] [place] [address] 05197 Chloride [Moles/Vol] 99 mmol/L Low 101-111 [facility] Comment on above: Performed By: #### 1 [id number] #### [facility] (DEFAULT) [address] [place] [address] 72881 CO2 [Moles/Vol] 28 mmol/L Normal 21-32 [facility] Comment on above: Performed By: #### 1 [id number] #### [facility] (DEFAULT) [address] [place] [address] 39451 Creatinine [Mass/Vol] 0.82 mg/dL Normal 0.60-1.30 [facility] Comment on above: Performed By: #### 1 [id number] #### [facility] (DEFAULT) [address] [place] [address] 24683 Glucose [Mass/Vol] 93.0 mg/dL Normal 74.0-118.0 [facility] Comment on above: Performed By: #### 1 [id number] #### [facility] (DEFAULT) [address] [place] [address] 54603 Osmolality 270 mOsm/L Invalid Interpretation Code [facility] Comment on above: Performed By: #### 1 [id number] #### [facility] (DEFAULT) [address] [place] [address] 58364 Potassium [Moles/Vol] 3.7 mmol/L Normal 3.6-5.1 [facility] Comment on above: Performed By: #### 1 [id number] #### [facility] (DEFAULT) [address] [place] [address] 77575 Sodium [Moles/Vol] 135.0 mmol/L Low 136.0-144.0 [facility] Comment on above: Performed By: #### 1 [id number] #### [facility] (DEFAULT) [address] [place] [address] Urea nitrogen [Mass/Vol] 12 mg/dL Normal 12-21 [facility] Comment on above: Performed By: #### 1 [id number] #### [facility] (DEFAULT) [address] [place] [address] Urea nitrogen/Creatini ne [Mass ratio] 14.6 mg/mg Normal 4.6-16.2 [facility] Comment on above: Performed By: #### 1 [id number] #### [facility] (DEFAULT) [address] [place] [address] Provider Orderson 03-26-2024 Provider Orders [id number] Normal [facility] Coding Summaryon 03-23-2024 Coding Summary HTMLBase 64 LcdnxmagIUj8nRr+PGhlYWQ+PE1FV MZqT78bpPOoyA5gJ5EYHHvGRxolRV CIAUnJTcUzgzTwDP1mwCHtMVMk IC8+CD3kJDYvDnuecLKbt8J6cAR5R 36syo4lRCzroBM8DEJiKdPvsdmvt7 xchLs3TScdAoykVwBv OYEwbE63GER3iI20Jn82nTPgbMZsq 6omsPr7ExSiNOMcPJJ9mDouBBokg3 MaLQDbM80pbRApt7W9 QIGxbWphcMCtEwWjeJS0wG8bPEaao lxtj6sugyorLxf2ye15nXFeu5I7bJ E1Q1YdszV5BAOowJNj ZeynnZGCyD1sqjizq3tfbrzbQdGxG GQrGHk9IFj6QGAzmWizDfThZV41OY A4IUYrroDtH7ElRDXv tQbtGwB8p5Z1Bg5IY3NKZhoeP3WNB UFSWTwvdGQ+LW19vm64S5HvImjuWu v8JMFfWSF4mFN9sP3z EJEiDTtzn3B6wFL0D0PlkyGxnc2tz 4yiPLGiHVhhJ28vfNEpy5M4RQSekZ G1HHAkcOfeKwZfcZ57 Oyc+NTOjqSbga8LnWougm3aut8any At4DdttTYOangOwuHkqVKX3j7QwHq 1eVXNgdDI7lYZ4mD1n JmFuPuZ1VWuiO602ChFefDLpGlfjR 78cM3QjbIK+EXKoVep1DCSziDlgSA 1vR0ZtHGJjnptmcPHs yAcnRK0qMWSrqgscUPVctI9nKOHtA 5q3XqPhWdU9INepK7AkFCAlspwsZy 59aG6gRoJjUyO7SRts X8FlntV5VWVemWQbEAovVVN0S02sw 8N5RTKgKNHtFHM9qXR2wZ7abAfzbj ogbGVmdDsgdmVydGlj RNhmZHqiX038FSPtrDgdFcChEDxaU yBEYXRlOiAgMTEvMjYvMjAyNDwvdG Q+QWNmKXU4gVolOMUt kRJuRIrkWn8gzFbxgTffVJ1uMRIzk cguJRHqsJ7nKDUzxMWchErdEA9cKB Cdxtjei356OtAtZUU6 CIXrcYXeD4IqjW9rIpFwYBCwAWQfF 4UnyEIwSGyoG215VKcdHsG4VVQpon YtA2CaNYIylKgfUeW1 f7I0Bz6Fj3TelrgcG4NjbXWiKcSpE mokQQq5G2ZwZhreuXR+SB52XQUhAG 66IXn6RRP0yJidZTny TYYuT4TlbC6sEaVeBOHjPBSsUlu+P HRhYmxlIHdpZHRoPScxMDAlJyBzdH qdXB8kSr6jRRCiCVLo aYnwlWIxHzUdm6haMSEvUBmbVR8ph AomW9GmnKC9LITex3p7Ql81J74nP8 JvdXA+CAFdwSG1zUJ8 hQ6nOcSrFbY7BLesW840XyQikQCqL jzya9xeb2ollDh2CjM2JHHiqnJdmB jjMKO2c3SwAw72E62p JNusSLUaLRFeQTPoUJQdlFlpma6te G9wIi8+DCIiaRY3sHU8aP2rBwBzAq T0ISmlT949DdNhwOTr Rfego3rcv2qcfJn4XkKsNSDvfwXmt CmvSGT8z2HeDp52N7EobIskj8UzCv w7pm67zYQxb5G4bBZ2 Q6AxLRZmmtwfhUBelRgbHJ8nMPObm pskFWQkuN0vYBLbN1s0UbJlQhZ1SO gbT8BfzhA2ERYeeZVu UJGluMSLfB9beemwn1sngcufMiCzT IOeEXg1PBu3OXAmtQtpZaBbWUG4Lq H9FLN4jUCyiF2akPlq eqprjP7kNbg+SYX7mQHetTDBNL6yI jwvdGQ+KZQiSDF2nEzaLXraJUJelU 8oMJClB2x5RdEwBcN1 DOnpI5WhzuE5OVBnmWJsUHErpYKLo W7lyvtbs8jvvgtpKeZiRZZgOSr4TQ u2QAVtwKmjHdViYBI9 PkU8WVA2eEOevO2vhEdjcsiteQ5oZ yc+YvheaNvwKXZ1FSr5S8UtFrm5MV UniQkuSH2vhIAxFTfs Hq4ndNjvnFjbOF8xCSBwhncav416P bVpw5dgZWBluOMvUZidDEI2M35we8 J8ZLWzXMDyCOD8mCC6 pH4rdBouhgtdxORljIlpvaDvvWnzE ImcYWogY178WJDmjBpjMxTmMBc9R1 MtPok0MTKocMknWJ5f dYIlISviJm6ldNknpRzuFV4xUALet eyxd343FyWdg9noSMIxyLSyGOffKH O3E50hx9O7SHExIQOg FLE0fCL0fZ4icLjatiyyjAQlgCjvb qWpmLuaFLqzEHlbA956JHFblCarTb DjtUu5M4ToFbm6VOJq zReoCE9ojYNwOBuaGk0tnDhgzYogP Z1wFLZpezvla778DjDew6zsPGUnkJ VfMAuqTTC6V38kb5L8 YKNaRTHdIUI1xFG1uN1rjCcuumfgx YYaxWhpxiEcpUkrDJdfBJhwP919GQ RvcDsnPlBhdGllbnQg FLcpJZi6Z9WiJkmtiMJ+QW31YGSoY X51pAWkjMPhi9qzlOa0ArMtDNBkDV V1lLlxCVhyj4TnHTOr D19rqGYgx8I2YLCctCvfsVUoGiPqc WM9qV7bTXyizsted8bkhxmeXppsc2 kixl08iY56R45bAWjp RYOvZMJsSTImTXGnuLodnu5piY1fH i8+BOCnpFB1jOX0jB2gGTAsAvW3ZO wyW673AdKbgUPmOowa b1bzp5gycDr8LbD9RFWchiSvoTglY EM0u2QfKv11F34qESttYTMbVCSoKT KpZMMziOnfxm7zuX0m Ii8+NQCjnFR5yZR3gU3mCuAsYtV2P ZdlJ690DyBvqLOqGbagN25wU7UbzI A+OLRqVeu9IMLsnJhb RM1hrALhQCxaUf3eETD5UcIwBhGmI JscC4AjLIUtnhucpcvbyVW7QHBuWB PduM08Qf0yoNkuEYFv wOJAzN8nihjuz6fuvbjnXeWaINDsO Kh5TQv9IKQztHrzTyUjILE8TgB4WB O1iLBvuU6hqZddoclm lF1rR9TjITArighuMk88cX5tGsXhO rH0ZXaeLqa+NYYNLMMKGkejE7nELC PXZUtICe87L6ZdLsc7 JLYpuErxOL9tkNCqMNgpZg6wxZdlu YvaEP0dPVOumlinJMNydE9kCTCmkI YrhAgwNE1eGLXkrhsb d655JwFwOJN7CBVazTUpW9LvmS9zX zRcVABsBABiN1EmfKQjBJrqI602CG ivPaC7LENugaKpN9Xv AEHwpLtzHeY1g4Y6Ac8aEs6lVl3mZ Sp4IJ68ST89mVLfc3D7aFW7Q7GuUP ObxdrdhzavcIY1DIFh YSMjfE96dFRbMFubTt4kq3V0n021W SIdAZWtmV93Hq3iwLgpPBIrgTCWuV 3bacsut1nnbooxUfFq PUTiISv1WEj3OSUxwXjzFvVnZUA8W xE3JVK3yJYxdL9feHtptpjlfK4bTw c+ByCtGJRjcoB2W2Kr Suc6YQZnsHktUT5gcBSwSHimTf6jf DuhlYomHI3cFTUfgfptAEFcgZ5gON DosNAugKtiPO9mROAl tydxl981KcSvWAM8QFLhsVNoJ0Rhe Q7rCrQmXOMxLKOhK3FztXEsQXbyH5 33YOjbEaD4AGJasiOu Z7OuHSEifXqwOwL3c3Q4Xw2PXT2AL BB7P4AgNug7INIpbKuhKL0bcUXpSZ esNz4daQvbiNxzWS7p ZEFkkhuxSPXwmC9cXHHhmAJxyPumY H2tEAAabrkrs864BvJnRRR9ITVrxB VaA8OmqD6jVrKzBQBp HWXeC3HqxGIzDNbrR206DEruHiZ9U HAavxYpA4SjAFDoeEqwEzP4s8I9Jh 8TcWZcV7JyZ7c6J3Hu PjwvdHI+VU91IDTfDC58xZXpkWWut 7nnyEq3XkYyWHXyVWH7oEvoAGhkc1 YkJJNxZ44jeWFyt0L1 MSFsvKcgiEPrPzNdiHF6eA4pOMiun zebg2tfqztgJlisi3itta00yA97T3 9sIHdpZHRoPSIzMCUi HBIlzTlitj7oxT8dFs2+IMYwhWL9z PR5yW0aBzNdDtP1JGapL491TjTfiN DzXgtov2fsc1npzNh2 JmDkHYMgthQerYxzMHB9x0SxFl66P 29sIHdpZHRoPSIyMCUiIHZhbGlnbj 8cwQ7cEd7+PG7jc7zi xq85bZ55oRH+BARtFAH6sRhjONcqX DUroL7yPMvjVwB8LUKrMkFysN56hQ PoPHgrPn2hiZihaIrx YQ9gJBZlvihrw022CjJlo7avPAVye IVoSKxrBHB0N82kd3G1IRBzMOPiKN S2iLP3iR3htAtxplth uBLybCjljaFgaXjaJUpeMPlnD339T YGydGhcLcVdyNVsD1utlnDLFZ3wOo wvdGQ+IDFxRPJ1nVqg PFklNPCzgB5iQQRpA8l5WjPgBgH0Q VbjT6SjeaG3VKMziLGjPWXycFWIyD 2fhcusa4jncynwGoZc HLYrMIp0LBf9ZTNcdBlhCpEiVXT1G qH6TKR9gUYzmV3moNyrrsdcsQ7sCt c+RklOOjwvdGQ+PHRk VHY3zEqpOYwdQSZghY9rSLXmJ5v1U pVvJuV4GLzgO2VudoQ3LCLweAQzOB FzlUUNzI6kdzmwf1xq ocifSeOyGMXpTOj0LCq4NFHmjCtwS yUoKPX4LkL0JJL2xDEvpC3veDptmx mjfF9aCdh+TVJOOjwv dGQ+JIYnWGT4fNkpNLojKHEpjR4xY ODuD8w9XxJuCxR5GLuyM0FiorM9JM ThzUWdDPYnuQMEhO7i vvwua4fqcxezYoNnJGZaHDy1BLq0F LVunZyvZcCmXUU8XsN8ODN9qPMjdD 7rcAzggirmgI8vObc+ WYD5RYA6WH46ZB28W6PdMoslbJUqp +PHRhYmxlIHdpZHRoPScxMDAlJy TnoWgbZO1fYl8sVNIo LWN (more content not included)... [facility] Coding Summary HTMLBase 64 UgjdipyyOHs9iFs+PGhlYWQ+PE1FV EIiE24hnQGkzS1yI0GNCYhFNjyyFN VIHDaTZxWidtBqNL6reAXrXMWr IC8+NM4mZOMwTziieQAgf0Y2lCG0Y 51kry5gKFhzsMY6JBXgEyMsvncvd5 jtrKs8YZvcDgvwJsDm SRGvnK18KPO0iO14Da87xGBtgRGni 9qecLv1NbVcQHSfXYR2aCdmJXnjm2 DdPVZnY42kwAZiw5O4 LQAnyBnuvJOdWtFncBO7eI5xHGgfr xgrz8nvojacQcx5om75fNFsd0F8aR X2C0PnlqV8QHWomAZb VnfwaPCAkV2tuebxw8dxeiaoTyOaV SJpZYm4MBf8VVPniXhuBgUdPN41XW L3XDUfugZnN2CmCMPl xKhgJrO1d8S2Lv1TV1TERangZ1CNK UFSWTwvdGQ+OR73bc68X8TvVrfrEr y7RROfFPW4fCX2wT5o BYSfXPapd8B3qSD7U9LwnjYghn9ps 6kqJEVgDFrcL96uoPKps7A8YQMprL B3TIXmrRvkDqXuxO62 Oyc+SMXenWbdb1SiMfrgu8nak2jce Nr5LiobHJNbfaSziQhvXLV4z2QrAi 0iSGBdeGT8yCE2yQ5n PiYzAyH2ZDpvN168GoAhwGRwHdeiT 35oD8GsaWM+EEClTjf0IKLynCneXP 9eU8HnLZIvishptOYj sIbgDF3pSAYxetlwYRGfaV8jIGVtW 0f0IkLaKmP5KEjfW7EbIFNkyxopMz 04mZ8kPpMvVeJ1VDaq Y5LdlyJ0YEJjpXOqLEggMOR3D06bu 3U0WPLfKYHkKNZ5bII1tT0cuOfepy ogbGVmdDsgdmVydGlj ZCujVGjlO067SCPhbWscGpTeXOtjF yBEYXRlOiAgMTEvMjYvMjAyNDwvdG Q+FMLuGGK5hDrxCZLr sYXrXWltDo6pgArbrOymPG7jVSKfv yueGDDrkI6cGMGxdXDddEqbVC4cCJ Umqgcht774FaQcAWU9 BOCdoZIrU8IedM3eFvVfORCsYTFpF 4IomWRcXCvbC094IYunJnX9DMEfik HaO2ReOZJkxRlgKjG0 k7E7Bw8Pc3GgtwrqG6RvwJRwJoKxU zspOTf7E8DiObwsdNX+YH46TAXhCA 88WRa0OPO4eNzvFSpp LMWuE0RhrR0pAqKlPWZiGNCyFwu+P HRhYmxlIHdpZHRoPScxMDAlJyBzdH akDO6hKp0yZBZzGUEl iRtvnAZyNmZqg6fbBCQcBEhnSG4xn WiqE2DhvCZ1RNJbw8p1Sh53E91iV0 JvdXA+KDWgeNC4jSG7 gI1wHoIrSsU8SMesA556MdJzrKRdS mzwn7duz7mctMx3TpX5UVQwtiLqfZ xeHCF1m4QoCf46G01r AXznMTTeTLEwRWVtETAyuKymap9rs G9wIi8+VSIxqDQ9fRV7dK2pWqGfAv P7FHpvR356PsMrzLZh Fqbgq8ckt6syySd1HzReODSqbfXlw BovISZ7e2OoNp11V6AhaEsgq0VoLz n6xu26lLFkc5I3wND1 F5JtTTSzgyyclOZmnGbbTH4fHNTur wllSNEbbH8wYLQxK1d9NtHuWcE5IN ntH5LlqdP9KOOepSGr VNCdcBAFrG7dsjlnt3aoeleoFuGnV MRiAUu7HMw1WGNevBdoTfScOLB7Pv K8IYL1sRTavQ6imPtn xurefP7lGny+HXD6eGIokUKMZL5iW jwvdGQ+CUTvQWP8aZhrYJphYLBnoQ 2qUSPoE8g2CxLqXvK0 OHrpG1DogpW9YXThfQBqSVVreSGVo W9pjkffa1hbofvpIqMoXJKaERe5SZ l1AQMchSxgCmStWDC3 GnL0HJP5bXVwsN0jrNoewwxpeW1cH yc+LuiuaFjmHSD9BPa0W3TeMxh2QM EvtXdjKF7hzOGoAPhe Er4thNkkxWkxIX5dAZXxaxhae341F lNeo6lzJXFtyRZgJKgjGWV7W91so1 F7OQOaGROxQUY5nXJ5 tF3gwYlqywicoZDahYbdndBihRsvO EjjZXeoV343ZDZxmYgqLxIrNMb6T1 AyRme1IYKixFbqNS8s aDQlYSfuKw0bdNwxnNsjCM7vSBNkf pznh519VuEvm4prPDKcsNIxDSowZF X4R41nx1R0CNTcCWCu CSB2xOI6uH8fbTaxgzztoYPocWwhg yLphKqhNHnpYOwaZ049UGBooIsxKl NvjZb5Y8PuJdx6IFTr eEifGU9dqCFnPNsjPk1cyLhyjMmqI P0xKHXwxcouc715DqBkw0jhJKPduY EjNYpvAZA3E83eh9I5 EGGwHULpXEB1hMO4fU5wfCyyqarir FNvnZwuzlNglKhfPZsvRSknL800LU RvcDsnPlBhdGllbnQg AKwfYRp2U8DjDeadpTQ+QZ07ARYcA W60oHNwqUVbh8nleSf3EyOwBDWkBI C6gPxdQVvyd3FdDJBa S60elDXnh1F7VJOwqRevsQSwGwBct ZY5fH3sIPpuxehkx6uinjrjUtkjw1 lwzf63iW52X75rFIcg AVNbDPDgBXRiIFDawYhmsc5keE0cL i8+AKThvHP4pNI0aH9yLFPsQcH4EY zfA840LvFabPGeZawr s2lwh8fbmKv7VhZ4DPIzmlCvdJtvM PV4t0VhNr81M66iJJfhKXDjXRNpPL FfSKQktZgltp7snQ0z Ii8+VDJjgAM2jZG2vU8gExNvGdF3W PfpD332MgPbvIBkQbxdL83hB5WxuW A+USQcPge4YTPfzCyw LQ1wrMWzVTtwOz6pGYL5FgEgYgOuU UkiU1HbBIYqjxznhpqfmWV9UETsDT CwoQ51Fw3guTpxVKHp qLFVqG0fmjbhw1ikgldpAgWqIRBrL Az9URf7KXVtoMtiYtXmIDY1SnP7SV W0eMNayK1laLplqvot qJ8wP9QrXCSfntacPx87wI8uMsBvA fE4PCnkYqi+PPYYARXZYrezV0rZLZ VBZPzSTy87H1QtAci3 EKPgfWviFS8yzKMaNBjpQk9ubWmvk VacSK5fSONnxlfwLCGwjK3rGPHhkV SfmBkiWE0kGYTdzedf o575DeHvMZD6HNGkiMCpV0SowE3dQ dMnHKDaKWNtX8MycRUwXBanW327JD wgKuI6MWCuhmLsV0Jd WTZacRgpUwA1n5S1Mo8uFr8oNk5bL Iy5TH92EJ27kCJqv3J0pTX6E8SdCJ GvominvqvfdYG0SQCb VPNrhM13nSHhDZxoIg1eo4M5g144B TJoRSQouM92Yd2ylHypXGCaaFFVfS 7fhyjar0wpwzjmFmHh TAJlCDq7NYo1TLArdLhuFaBzCXJ4G pZ5NUL4bWLedI8ftSpaelypkR8rPv c+QjElEHSvfeU6Z3Ax Znj3BZUceTbhDP0rxXUeSNekYv1ff KqsfRevZN7kUQJfvlrzIWUnyF3mRP LzjGYdqBqlJW1mRGZh ngftd772FxVzLQY6HSLduKSwL5Xsx J8nUiVcPKStXTYyJ6LofELyQVypS4 76WGetEfR7ZOAzaeIx H8UfJCNtdGpcZrJ0m1I6Ej1TQQ9BN TO8K8LcQbm5YIZlkYnsNV0hiSYyLJ qjKz8atLkajObfYU6x VNLhdetoWNGsgZ4bVBMioEHpsGegU W8nXHBiyofgf727RnOtXTV4SNJgyC ElJ0KovZ0yHkXcRBSp KSJfH5IbyUPvNTbcC211RJojIxY1O GJwojIjE1VbEOPsiDbmXdI0o9D4Ts 5PUDwvdGQ+JS96hv00 E5UjAwowEsz6EDSxLNL0kTW7hE8jA DCkQIavd5N1rSS4H1RztqYtjc6dw6 xmKLOfFKkqZ57jgZTn s2W6YVRnbYZ7QEZofDfrHiJviN20U yc+GJXbmGabc0PtTkyud1fbt3lcdO p0RsFsXOSvisJfiRyr DXT7o4JcHi73B81gOXcrRORkOCWzE PApDOGjcEntcn3gfP9uOp3+PGNvbC G5xRM7xU5jRkYtTlN5 EDujB394ZzTbiPOxFijep1lfh9gej Qo1TrZbLGDrxeDjzLajSQW6u6SjAj 78L5LdtXhti3EfKdo6 fy06sWDnq7M2rKV1P2XtTJBummjqn ADdcErnIY2vQSEupbxgFDMosF6dPK EcJ4k9GtMqNnA4YBnp M2BrjjC0PHGuxSXuZPSewHSJkL3wo ybaw3bjgqsqGfNwQYBdUTl3COf8GC VlbAwtRvXcAXW1JdY5 OZH2tFDguA4ekQnoaizipQ5qLli+U Mf0g6uvvWIjUQ4tjYR8IE54JE56iV Pno4E8gCK8P8ZeOGUy kpreprpzoHE6TJGzBWMosN86La8uj YxjWp9xSTZhPMC7PGOigKThC9OqfP 3dVdVjXXHxOHJhE3Af bZMlINklD839GEyoBlG2VETucwRrK 4OsHFKxaJvuTrB0q4F2Id5NTL33XK 29LZ02cJHsb1T5xDV5 O6OiCJMbaterdowfjIW0GGArELMda E37Wd5ujXuzVj9fXOFnAUJ4FKHatF EpR2VfpQ0uWwUkWBCt LNPzW0OruBYoBSsxO167INgyRxH6N MDtduYdI8GhBLHmfUslKqX4f8V6Jh 5BVn16WT01YN02vWWe r0U5qMX4E0KtQALtapbtzffjpXM7G ZDjEHJlpC95Gy6ilFjyXw0bXLNzBT N4YKTdxJMgY0DmtY6n LfVaPPEcHWZlJ4LaaKCtXAkuD303B ErxYvO8FZAvitRsK3WxEFRhcPxrEx M2c0J9Dw0TXIvqdkp5 E7DfWnobkAU+PA18RUFyZF32pBAby FGgs6ejfId7OdJuKIEzSGG7lKvsKJ ccb4QxVYLgG25bbRVx c2U (more content not included)... Normal [facility] Consent Formson 03-17-2024 Consent Forms [id number]#1.00OTGTIFF [facility] Lipid Panel Standardon 03-17 Cholesterol [Mass/Vol] 153.0 mg/dL Normal 66.0-200.0 [facility] Comment on above: Performed By: #### 1 [id number] ####[facility] (DEFAULT)[address] [place] [address] 29757 Cholesterol in HDL [Mass/Vol] 48 mg/dL Normal 40-71 [facility] Comment on above: Performed By: #### 1 [id number] ####[facility] (DEFAULT)[address] [place] [address] 39510 Cholesterol in LDL [Mass/Vol] 98 mg/dL Normal 1-100 [facility] Comment on above: Performed By: #### 1 [id number] ####[facility] (DEFAULT)[address] [place] [address] 44035 Cholesterol.total /Cholesterol in HDL [Mass ratio] 3.1 {ratio} Normal 0.0-4.5 [facility] Comment on above: Performed By: #### 1 [id number] ####[facility] (DEFAULT)[address] [place] [address] 57646 Triglyceride [Mass/Vol] 38.0 mg/dL Normal 0.0-150.0 [facility] Comment on above: Performed By: #### 1 [id number] ####[facility] (DEFAULT)[address] [place] [address] 31251 VLDL. 8 mg/dL Normal 5-40 [facility] Comment on above: Performed By: #### 1 [id number] ####[facility] (DEFAULT)[address] [place] [address] 91090 Provider Orderson 03-17-2024 Provider Orders [id number]#1.00OTGTIFF Normal [facility] TSH w/ Reflex to FT4on 03-17 TSH Qn 3.02 m[IU]/L Normal 0.45-5.33 [facility] Comment on above: Performed By: #### 1 [id number], 9194370, 5400496637, 2454514597, 0356882, 6712452, 572487911, 9231500350, 0136943, 22417466 ####[facility] (DEFAULT)[address] [place] [address] 41407 .Auto Diff 1on 03-16-2024 Auto Harrison % 7 % Normal 1-12 [facility] Comment on above: Performed By: #### 1 [id number], 8400354, 6852995536, 2573012849, 9456663, 0070052, 016839453, 1672858928, 9881190, 02934733 #### [facility] (DEFAULT) [address] [place] [address] Baso Abs# 0.0 x10 Normal 0.0-0.2 [facility] Comment on above: Performed By: #### 1 [id number], 0370383, 2526230610, 9172234701, 2326696, 9327457, 047859303, 6462817619, 1312023, 66636429 #### [facility] (DEFAULT) [address] [place] [address] Basophils/100 WBC (Bld) 0.7 % Normal 0.2-2.0 [facility] Comment on above: Performed By: #### 1 [id number], 8392672, 6379785541, 5888542017, 9406799, 5632466, 999322218, 9668404547, 9412061, 80185235 #### [facility] (DEFAULT) [address] [place] [address] Eos Abs# 0.0 x10 Normal 0.0-0.4 [facility] Comment on above: Performed By: #### 1 [id number], 6812722, 4931987892, 8936661615, 0038946, 9606697, 563855042, 0131716541, 7129817, 54536078 #### [facility] (DEFAULT) [address] [place] [address] 30857 Eosinophils/100 WBC (Bld) 0.5 % Low 0.9-4.0 [facility] Comment on above: Performed By: #### 1 [id number], 8805101, 7941663120, 2809627984, 8140651, 5453894, 573885591, 7417065392, 3679105, 54891343 #### [facility] (DEFAULT) [address] [place] [address] Lymph Abs# 2.2 x10 Normal 1.3-2.9 [facility] Comment on above: Performed By: #### 1 648924759, 2346856, 7092626374, 6862637532, 3808020, 2264264, 959326490, 0011715632, 5717536, 12904953 #### [facility] (DEFAULT) [address] [place] [address] Lymphocytes/100 WBC (Bld) 31 % Normal 14-48 [facility] Comment on above: Performed By: #### 1 [id number], 9433529, 6290138053, 9375641373, 6233887, 3441104, 634863800, 2958864620, 0389389, 23617494 #### [facility] (DEFAULT) [address] [place] [address] Harrison Abs# 0.5 x10 Normal 0.0-0.8 [facility] Comment on above: Performed By: #### 1 078916970, 1541089, 6246498553, 4514899609, 6503288, 3823784, 734138506, 6503005241, 0394872, 90450969 #### [facility] (DEFAULT) [address] [place] [address] Neut Abs# 4.4 x10 Normal 1.5-9.2 [facility] Comment on above: Performed By: #### 1 [id number], 1119667, 5655180178, 3299800756, 8195798, 9285763, 455043938, 0928191201, 3233880, 92470424 #### [facility] (DEFAULT) [address] [place] [address] Neutrophils/100 WBC (Bld) 61 % Normal 44-88 [facility] Comment on above: Performed By: #### 1 [id number], 9843145, 7926368303, 9314465343, 6420739, 8246524, 675158090, 6273202689, 9165174, 32101161 #### [facility] (DEFAULT) [address] [place] [address] BNP.on 03-16-2024 Internal Control Pass Normal [facility] Comment on above: Performed By: #### 1 388043364, 7270449, 7587884190, 6250093422, 6775593, 9906925, 584519792, 2517806604, 7804720, 31823033 ####[facility] (DEFAULT)[address] [place] [address] 63753 Natriuretic peptide B (Bld) [Mass/Vol] pg/mL Normal 0.0-100.0 [facility] Comment on above: Result Comment: BNP results greater than 100 pg/mL are considered abnormal and suggestive of patients with CHF. Higher BNP concentrations measured in the first 72 hours after an acute coronary syndorme are associated with an increased risk of , myocardial infarction, and CHF. Performed By: #### 1 [id number], 2711696, 8524672233, 8597100594, 2439985, 8094060, 041470209, 6323804858, 7557951, 80875218 ####[facility] (DEFAULT)[address] [place] [address] 40186 CBC w/ Auto Diffon Erythrocyte distribution width (RBC) [Ratio] 12.6 % Normal 11.5-15.0 [facility] Comment on above: Performed By: #### 1 801178155, 8519744, 3369922974, 6780749356, 7464457, 1571274, 504018897, 8920245369, 1550218, 46834389 #### [facility] (DEFAULT) [address] [place] [address] 96635 Hematocrit (Bld) [Volume fraction] 47.1 % High 33.7-40.4 [facility] Comment on above: Performed By: #### 1 219483376, 5353016, 2398446171, 3452380050, 6511446, 1264514, 788324740, 9621734435, 3435339, 76037504 #### [facility] (DEFAULT) [address] [place] [address] 44977 Hemoglobin (Bld) [Mass/Vol] 16.2 g/dL High 11.3-15.9 [facility] Comment on above: Performed By: #### 1 722800258, 1598242, 9724542636, 7771991491, 1697376, 2113215, 849141032, 9517819478, 4977196, 11230300 #### [facility] (DEFAULT) [address] [place] [address] Man Diff? Auto Invalid Interpretation Code [facility] Comment on above: Performed By: #### 1 599941168, 5185351, 3377505686, 4674485316, 4956681, 6329761, 192784419, 6959013633, 2731891, 57307613 #### [facility] (DEFAULT) [address] [place] [address] 66709 MCH (RBC) [Entitic mass] 31 pg Normal 24-34 [facility] Comment on above: Performed By: #### 1 397387970, 4382659, 2956414725, 4759425550, 1509890, 7390144, 628488873, 9254497129, 1261418, 68064052 #### [facility] (DEFAULT) [address] [place] [address] 52184 MCHC (RBC) [Mass/Vol] 34 g/dL Normal 26-37 [facility] Comment on above: Performed By: #### 1 978106655, 9901460, 1985977361, 0726407542, 3482633, 4158931, 591660713, 8042352901, 7008952, 30747560 #### [facility] (DEFAULT) [address] [place] [address] 87781 MCV (RBC) [Entitic vol] 91 fL Normal 81-100 [facility] Comment on above: Performed By: #### 1 673700639, 4626820, 5255350752, 5467484349, 9243536, 4723246, 245536298, 6723558762, 5059910, 21547096 #### [facility] (DEFAULT) [address] [place] [address] 97206 Platelet 297 x10 Normal 138-427 [facility] Comment on above: Performed By: #### 1 580628976, 5763909, 0093776231, 6945854940, 5265037, 6759766, 224573104, 1396541644, 7251670, 69552318 #### [facility] (DEFAULT) [address] [place] [address] Platelet mean volume (Bld) [Entitic vol] 9.5 fL Normal 6.3-10.2 [facility] Comment on above: Performed By: #### 1 470594770, 4241065, 0848178569, 2203348418, 6801308, 5833789, 267015525, 2681687289, 5779881, 30167022 #### [facility] (DEFAULT) [address] [place] [address] RBC 5.18 x10 Normal 3.70-5.30 [facility] Comment on above: Performed By: #### 1 100029594, 2142114, 1361019301, 4697666600, 4811902, 6031525, 652711964, 5468952601, 9963013, 69363866 #### [facility] (DEFAULT) [address] [place] [address] WBC 7.2 x10 Normal 3.5-10.5 [facility] Comment on above: Performed By: #### 1 849618743, 9006908, 4203424436, 8909214925, 4431918, 6144253, 730845109, 8584445761, 2934418, 73903877 #### [facility] (DEFAULT) [address] [place] [address] CMP Standardon 03-16-2024 Breakpoint Chem Normal [facility] Comment on above: Performed By: #### 1 183966187, 5992196, 8794380567, 3334540886, 7749414, 6689502, 876163952, 1886876896, 4405941, 32637263 #### [facility] (DEFAULT) [address] [place] [address] eGFR Non AA >60 Invalid Interpretation Code [facility] Comment on above: Performed By: #### 1 376365118, 6493964, 6480342548, 2345295217, 1682747, 5503630, 030342554, 2674145303, 9151297, 70501579 #### [facility] (DEFAULT) [address] [place] [address] 36844 eGFR AA >60 Invalid Interpretation Code [facility] Comment on above: Performed By: #### 1 936884724, 4856302, 0840082713, 8295885021, 3820980, 4508076, 604352082, 0803006763, 9926192, 08009483 #### [facility] (DEFAULT) [address] [place] [address] Albumin [Mass/Vol] 4.7 g/dL Normal 3.5-5.0 [facility] Comment on above: Performed By: #### 1 927157876, 4932774, 4275454882, 4057463629, 3248755, 0589119, 309841561, 4496521893, 6138315, 63671145 #### [facility] (DEFAULT) [address] [place] [address] Albumin/Globulin [Mass ratio] 1.4 {ratio} Normal 1.4-2.6 [facility] Comment on above: Performed By: #### 1 [id number], 0906266, 2126412127, 0794593791, 3480423, 9141379, 165276268, 6582510432, 5685267, 95269124 #### [facility] (DEFAULT) [address] [place] [address] 78362 Alk Phos 76 IU/L Normal 32-91 [facility] Comment on above: Performed By: #### 1 [id number], 7010137, 5149731526, 3809839403, 2537225, 2128168, 142109634, 1648532697, 0139990, 77732098 #### [facility] (DEFAULT) [address] [place] [address] ALT [Catalytic activity/Vol] 22.0 U/L Normal 14.0-54.0 [facility] Comment on above: Performed By: #### 1 [id number], 2201399, 1900659715, 5034226967, 8141851, 1080204, 116725014, 8312141352, 7762678, 35637172 #### [facility] (DEFAULT) [address] [place] [address] 91238 Anion gap [Moles/Vol] 19.9 mmol/L High 5.0-19.0 [facility] Comment on above: Performed By: #### 1 250583526, 8080322, 1777825590, 3094928757, 0210050, 2332827, 756511780, 3519041247, 7520788, 74422285 #### [facility] (DEFAULT) [address] [place] [address] 55871 AST [Catalytic activity/Vol] 29 U/L Normal 15-41 [facility] Comment on above: Performed By: #### 1 504537161, 0975404, 7320873785, 3203997266, 5155681, 9992561, 591124786, 5559415191, 7860086, 19730313 #### [facility] (DEFAULT) [address] [place] [address] 75544 Bili Total 0.8 mg/dL Normal 0.3-1.2 [facility] Comment on above: Performed By: #### 1 385602213, 0397537, 9077529110, 0903806321, 0948716, 9493917, 672727612, 4658054809, 9879610, 42276118 #### [facility] (DEFAULT) [address] [place] [address] 18782 Calcium [Mass/Vol] 9.4 mg/dL Normal 8.9-10.3 [facility] Comment on above: Performed By: #### 1 690425643, 7807721, 4540267920, 7134455781, 2472497, 9803988, 636267928, 5368413600, 6080714, 88902508 #### [facility] (DEFAULT) [address] [place] [address] 35788 Chloride [Moles/Vol] 100 mmol/L Low 101-111 [facility] Comment on above: Performed By: #### 1 060595394, 1136809, 9865305337, 2656340310, 8064443, 8435646, 507758849, 6999984827, 7266669, 83909389 #### [facility] (DEFAULT) [address] [place] [address] CO2 [Moles/Vol] 16 mmol/L Low 21-32 [facility] Comment on above: Performed By: #### 1 616472051, 9789399, 5402154060, 5595562496, 1556610, 9095224, 575727805, 9338144999, 4663922, 45414160 #### [facility] (DEFAULT) [address] [place] [address] Creatinine [Mass/Vol] 0.97 mg/dL Normal 0.60-1.30 [facility] Comment on above: Performed By: #### 1 511365478, 8508110, 5025513945, 2864838933, 5269943, 5148671, 366732782, 7083468528, 4927174, 62842086 #### [facility] (DEFAULT) [address] [place] [address] Globulin (S) [Mass/Vol] 3.3 g/dL Normal 1.5-4.3 [facility] Comment on above: Performed By: #### 1 815711833, 2785166, 8036244173, 5613262722, 2841013, 2796420, 713626883, 3611754477, 5068102, 06352537 #### [facility] (DEFAULT) [address] [place] [address] 22570 Glucose [Mass/Vol] 114.0 mg/dL Normal 74.0-118.0 [facility] Comment on above: Performed By: #### 1 730978147, 1138615, 5930019580, 9301714072, 1084399, 6692720, 759567086, 2457507976, 2786225, 50487717 #### [facility] (DEFAULT) [address] [place] [address] 47285 Osmolality 268 mOsm/L Invalid Interpretation Code [facility] Comment on above: Performed By: #### 1 203025899, 2103400, 7448736046, 2038681772, 3262438, 8893509, 993314304, 5070918876, 9080463, 49244677 #### [facility] (DEFAULT) [address] [place] [address] 49373 Potassium [Moles/Vol] 2.9 mmol/L Low 3.6-5.1 [facility] Comment on above: Performed By: #### 1 891371190, 3779667, 7650679799, 6078542816, 9944012, 7480651, 820495117, 9157858247, 9121326, 31076145 #### [facility] (DEFAULT) [address] [place] [address] 24450 Protein [Mass/Vol] 8.0 g/dL Normal 6.5-8.1 [facility] Comment on above: Performed By: #### 1 121108345, 7681757, 8848007021, 7181985308, 5171426, 0418429, 368862539, 9524363322, 5785884, 25305630 #### [facility] (DEFAULT) [address] [place] [address] 34239 Sodium [Moles/Vol] 133.0 mmol/L Low 136.0-144.0 [facility] Comment on above: Performed By: #### 1 921831232, 4999659, 7258155732, 5970638641, 7989215, 5993072, 151928291, 1675676258, 4625123, 65386994 #### [facility] (DEFAULT) [address] [place] [address] 87773 Urea nitrogen [Mass/Vol] 15 mg/dL Normal 8-26 [facility] Comment on above: Performed By: #### 1 627126942, 8745807, 3475426118, 8987476650, 1632165, 1849769, 410498853, 3089155052, 9900932, 89708818 #### [facility] (DEFAULT) [address] [place] [address] Urea nitrogen/Creatini ne [Mass ratio] 15.4 mg/mg Normal 4.6-16.2 [facility] Comment on above: Performed By: #### 1 281952782, 2262340, 1812732178, 3903359309, 2481182, 4427765, 126253345, 6929887386, 0403938, 11258855 #### [facility] (DEFAULT) [address] [place] [address] PE Chest w/ Contraston CT PE [...] Bee MD 03/16/24 10:36 p Technologist: NAT Normal [facility] ED Clinical Summaryon 2023 ED Clinical Summary [facility] - Emergency Department [address] [id number] ED Clinical Summary PERSON INFORMATION Name: SAIMA YANCEY Age: 28 Years Sex: FEMALE : 1995 MRN: Acct#: Visit Reason: Anxiety; Chest pressure; SHAKING, NUMBNESS, CHEST PAIN Arrival: 03/16/2024 17:36:13 Discharge: 03/16/2024 22:54:00 LOS: 000 05:18 Check In: 03/16/2024 17:36:13 Checkout:03/16/2024 22:54:00 Address: [address] [place] [address] PCP: Amanda Samuel CNP PROVIDER INFORMATION Provider Role Assigned Unassigned Emma Gifford ED PA 03/16/2024 17:38:18 Armida Johns TAB CUTTER Nurse 03/16/2024 17:53:56 Ailyn Dixon TAB CUTTER Nurse 03/16/2024 19:05:43 Ayad Campos DO ED [...] initially seen and evaluated by my physician benefits assistant. Please see her note for full [...] Resolved Disease caused by 2019 novel coronavirus ([id number]): Onset on 05/03/2021 at 26 years. Resolved. Comments: 05/03/2021 SUBSORTER 18:07 SUBSORTER - SYSTEM Problem added by Rule (IC_COVID19_AUTO_PROBLEM) [...] Respiratory Ra (more content not included)... Normal [facility] ED Note - Physicianon 2023 ED Note [...] initially seen and evaluated by my physician benefits assistant. Please see her note for full [...] Resolved Disease caused by 2019 novel coronavirus ([id number]): Onset on 05/03/2021 at 26 years. Resolved. Comments: 05/03/2021 SUBSORTER 18:07 SUBSORTER - SYSTEM Problem added by Rule (IC_COVID19_AUTO_PROBLEM) [...] mmHg HI Diastolic Blood Pressure 100 mmHg TX 03/16/2024 22:14 EST Peripheral Pulse Rate 115 [...] 18:30 EST Peripheral Pulse Rate 119 bpm TX 03/16/2024 18:30 EST Systolic Blood Pressure 131 mmHg HI Diastolic Blood Pressure 96 mmHg HI Mean Arterial Pressure, Cuff 108 mmHg HI Mean Arterial Pressure Cuff 113 mmHg 03/16/2024 18:00 EST Heart Rate Monitored 116 bpm HI Respiratory Rate 20 br/min SpO2 100 % 03/16/2024 18:00 EST Peripheral Pulse Rate 118 bpm TX 03/16/2024 18:00 EST Systolic Blood Pressure 134 mmHg HI Diastolic Blood Pressure 91 mmHg HI Mean Arterial Pressure, Cuff 105 mmHg HI Mean Arterial Pressure Cuff 109 mmHg 03/16/2024 17:54 EST Peripheral Pulse Rate 130 bpm HI Heart Rate Monitored 129 bpm HI Respiratory Rate 19 br/min (more content not included)... Normal [facility] ED Note-Nursingon 03-16-2024 ED Note-Nursing Pt ambulatory [...] reach. very anxious on the cart Normal [facility] ED Patient Summaryon 024 ED Patient Summary [facility] - Emergency Department [address] [place] [address] PATIENT DISCHARGE INSTRUCTIONS Patient Information Name: SAIMA YANCEY Age: 28 Years Date of : 1995 Reason For Visit: Anxiety; Chest pressure; SHAKING, NUMBNESS, CHEST PAIN Arrival Time: 03/16/2024 17:36:13 Primary Care Physician: Amanda Samuel CNP Attending Physician: Jaylen Jiang MD Comment: Visit Diagnosis: Diagnoses This Visit Anxiety ([id number]) Chest heaviness (R07.89) Chest pressure ([id number]) Hypokalemia (E87.6) Tachycardia (R00.0) The Pharmacy at [facility] is open Friday through Friday from [...] alcohol and/or drug addiction problems; contact the [facility] 18/11 Crisis Hotline -Text 3HRZX ab [phone]. If you received any narcotics, sedation, or [...] legal documents With: Address: When: Amanda Samuel [address] [place] [address] Business (1) Within 2 to 4 days Comments: Call for follow up appointment Return if symptoms worsen Medication Information: The exam and treatment you received today in the [facility] Emergency Department were for an urgent problem and are not intended as complete care. It is important for you to follow up with a doctor, nurse practitioner, or physician?s benefits assistant for ongoing care. If your symptoms [...] so we can reach you if necessary. [facility] Emergency Department has provided you with a complete list of medications post discharge. Please inform your fruit grader operator/provider of your visit and for further instruction on these medications. Any specific questions regarding your chronic medications and dosages should be discussed with your primary care physician(s) and/or pharmacist. New Medications [facility], [address] [place] [address] [phone], [phone] potassium chloride (Potassium Chloride (Eqv-K-Tab) 10 mEq [...] (Inserted Im (more content not included)... Normal [facility] Extra Redon 03-16-2024 Tube Collected Yes Invalid Interpretation Code [facility] Comment on above: Performed By: #### 1 [id number], 6971385, 0578489890, 8908089266, 2814228, 1488440, 442863670, 1320049038, 6806594, 89237867 #### [facility] (DEFAULT) [address] [place] [address] Magnesiumon 03-16-2024 Magnesium [Mass/Vol] 1.95 mg/dL Normal 1.80-2.50 [facility] Comment on above: Performed By: #### 1 556988571, 3330046, 3970138368, 6281251117, 0838330, 2522042, 457879351, 5024140819, 9641256, 04701903 ####[facility] (DEFAULT)[address] [place] [address] 11764 PTon 03-16-2024 INR Coag (PPP) [Relative time] 1.02 {INR} Normal 0.91-1.11 [facility] Comment on above: Performed By: #### 1 521462575, 3048689, 9734364675, 1100897060, 2891689, 8919098, 000689527, 1187485162, 8524881, 51729057 ####[facility] (DEFAULT)[address] [place] [address] 52516 PT 10.6 second(s) Normal 9.7-11.8 [facility] Comment on above: Performed By: #### 1 043218198, 4342420, 9148846442, 3878761506, 7690541, 6599500, 687598222, 9283979733, 1518344, 22458355 ####[facility] (DEFAULT)[address] [place] [address] 17644 Test Urine 1on U Preg Negative Normal [facility] Comment on above: Performed By: #### 3 45230953 ####[facility] (DEFAULT)[address] [place] [address] 32467 U Preg Internal Control Pass [facility] Comment on above: Performed By: #### 3 [id number] ####[facility] (DEFAULT)[address] [place] [address] 00503 TnI HSon 03-16-2024 Troponin I High Sensitivity <2.3 Normal <=15.0 [facility] Comment on above: Performed By: #### 1 623262336, 6492439, 2293079948, 0413598154, 7244683, 6169762, 226276369, 6741876139, 1880923, 75790011 ####[facility] (DEFAULT)[address] [place] [address] 31899 UA Byxxb4op 03-16-2024 UA Amorph. 4+ Normal [facility] Comment on above: Order Comment: Urina lysis Microscopic order added on by [employer] Rules system. Performed By: #### 5 3372473, 8742453781 ####[facility] (DEFAULT)[address] [place] [address] 71277 UA Bacteria Trace Normal [facility] Comment on above: Order Comment: Urina lysis Microscopic order added on by [employer] Rules system. Performed By: #### 5 0174561, [id number] ####[facility] (DEFAULT)[address] [place] [address] 62861 UA RBC None Seen Normal [facility] Comment on above: Order Comment: Urina lysis Microscopic order added on by [employer] Rules system. Performed By: #### 5 6529898, [id number] ####[facility] (DEFAULT)[address] [place] [address] 59511 UA Squam Epi Few [facility] Comment on above: Order Comment: Urina lysis Microscopic order added on by [employer] Rules system. Performed By: #### 5 1717534, [id number] ####[facility] (DEFAULT)[address] [place] [address] 08118 UA WBC 0-2 [facility] Comment on above: Order Comment: Urina lysis Microscopic order added on by [employer] Rules system. Performed By: #### 5 2443129, [id number] ####[facility] (DEFAULT)[address] [place] [address] UA w Culture if Ind Standard on 03-16-2024 Breakpoint UA [facility] Comment on above: Performed By: #### 5 5841235, [id number] ####[facility] (DEFAULT)[address] [place] [address] Color (U) Yellow [facility] Comment on above: Performed By: #### 5 5539726, 7668947314 ####[facility] (DEFAULT)[address] [place] [address] Culture? Not Indicated Invalid Interpretation Code [facility] Comment on above: Result Comment: Resu lt created by rule GL_MAGR_ADD_UA_CULT1 Result created by rule GL_MAGR_ADD_UA_CULT Result created by rule GL_MAGR_ADD_UA_CULT1 Performed By: #### 5 7150714, [id number] ####[facility] (DEFAULT)[address] [place] [address] 77185 Glucose (U) [Mass/Vol] Negative [facility] Comment on above: Performed By: #### 5 8618098, 2613982917 ####[facility] (DEFAULT)[address] [place] [address] 55541 Ketones Ql (U) 40 [facility] Comment on above: Performed By: #### 5 1170605, 9451363720 ####[facility] (DEFAULT)[address] [place] [address] 66262 Micro? Indicated Invalid Interpretation Code [facility] Comment on above: Result Comment: Resu lt created by rule GL_MAGR_ADD_UA_MICRO Performed By: #### 5 3554079, [id number] ####[facility] (DEFAULT)[address] [place] [address] UA Bilirubin Negative Normal [facility] Comment on above: Performed By: #### 5 6643640, 9694896523 ####[facility] (DEFAULT)[address] [place] [address] UA Blood Negative Normal NEGATIVE [facility] Comment on above: Performed By: #### 5 2623996, 4064869592 ####[facility] (DEFAULT)[address] [place] [address] UA Clarity CLOUDY Abnormal CLEAR [facility] Comment on above: Performed By: #### 5 9465517, 7993990091 ####[facility] (DEFAULT)[address] [place] [address] UA Leuk Est Negative Normal NEGATIVE [facility] Comment on above: Performed By: #### 5 4040440, 2795637395 ####[facility] (DEFAULT)[address] [place] [address] UA Nitrite Negative Normal NEGATIVE [facility] Comment on above: Performed By: #### 5 9266329, [id number] ####[facility] (DEFAULT)[address] [place] [address] 02304 UA pH 8.0 Normal 5-8 [facility] Comment on above: Performed By: #### 5 8230075, 5528613300 ####[facility] (DEFAULT)[address] [place] [address] 09723 UA Protein Negative Normal NEGATIVE [facility] Comment on above: Performed By: #### 5 4677813, 5184242647 ####[facility] (DEFAULT)[address] [place] [address] 76065 UA Spec Grav 1.020 Normal 1.001-1.035 [facility] Comment on above: Performed By: #### 5 2853768, 3579856893 ####[facility] (DEFAULT)[address] [place] [address] UA Urobilinogen 1.0 mg/dL Normal 0.2-1.0 [facility] Comment on above: Performed By: #### 5 3343760, 2029923523 ####[facility] (DEFAULT)[address] [place] [address] Urine Source Clean Catch Normal [facility] Comment on above: Performed By: #### 5 7429387, [id number] ####[facility] (DEFAULT)[address] [place] [address] hCG Quantitativeon hCG Quantitative <0.6 Normal 0.0-0.6 [facility] Comment on above: Result Comment: Post -Menopausal Reference Range is: 0.1-11.6 mIU/mL Performed By: #### 1 167482113, 5040663, 7333252892, 3475142499, 4610057, 2438130, 908933441, 6132562849, 3079338, 76251600 ####[facility] (DEFAULT)[address] [place] [address] Provider Orderson 03-12-2024 Provider Orders [id number]#1.00[facility] Toxicology Results [id number]#1.00[facility] QuantiFERON-TB Gold Pluson QuantiFERON-TB Gold Plus Negative Invalid Interpretation Code Negative [facility] Comment on above: Result Comment: No r esponse to M tuberculosis antigens detected. Infection with M tuberculosis is unlikely, but high risk individuals should be considered for additional testing (ATS/IDSA/CDC Clinical Practice Guidelines, 2017). The reference range is an Antigen minus Nil result of <0.35 IU/mL. Chemiluminescence immunoassay methodology Performed At: [address] [id number] Catherine Best PhD Ph:[phone] Performed By: #### 1 [id number], 57186709, [id number] ####[facility] (DEFAULT)[address] [place] [address] 11167 QuantiFERON Incubation Incubation performed. Invalid Interpretation Code [facility] Comment on above: Result Comment: Perf ormed At: [address] [id number] Catherine Best PhD Ph:[phone] Performed By: #### 1 412155055, 57252699, [id number] ####[facility] (DEFAULT)[address] [place] [address] 75327 HBSab Qnt LCon 02-14-2024 Hep B Surf Ab Quant LC 11.3 mIU/mL Invalid Interpretation Code Immunity>10 [facility] Comment on above: Result Comment: Stat us of Immunity Anti-HBs Level Inconsistent with Immunity 0.0 - 10.0 Consistent with Immunity >10.0 Performed At: [address] [id number] Catherine Best PhD Ph:[phone] Performed By: #### 1 [id number], 26090265, [id number] ####[facility] (DEFAULT)[address] [place] [address] 86565 Measles/Mumps/Rubella Immuni ty LCon 02-14-2024 Mumps Abs, IgG LC <9.0 Low Immune >10.9 [facility] Comment on above: Result Comment: Nega tive <9.0 Equivocal 9.0 - 10.9 Positive >10.9 A positive result generally indicates past exposure to Mumps virus or previous vaccination. Performed At: [address] [id number] Catherine Best PhD Ph:[phone] Performed By: #### 1 [id number], 24774610, [id number] ####[facility] (DEFAULT)[address] [place] [address] 83032 Rubella Antibodies, IgG LC 1.95 index Invalid Interpretation Code Immune >0.99 [facility] Comment on above: Result Comment: Non- immune <0.90 Equivocal 0.90 - 0.99 Immune >0.99 Performed By: #### 1 [id number], 43271906, [id number] ####[facility] (DEFAULT)[address] [place] [address] 46039 Rubeola Ab, IgG, EIA LC 39.7 AU/mL Invalid Interpretation Code Immune >16.4 [facility] Comment on above: Result Comment: Nega tive <13.5 Equivocal 13.5 - 16.4 Positive >16.4 Presence of antibodies to Rubeola is presumptive evidence of immunity except when acute infection is suspected. Performed By: #### 1 057618208, 60980525, [id number] ####[facility] (DEFAULT)[address] [place] [address] Nicotine Metabolite, Urine L Con 02-14-2024 Cotinine LC Negative Invalid Interpretation Code [id number] [facility] Comment on above: Result Comment: Perf ormed At: [facility] [address] [place], [place] [id number] Apolonia Shepherd PhD Ph:[phone] Performed By: #### 2 [id number], [id number] ####[facility] (DEFAULT)[address] [place] [address] 62680 Provider Orderson 02-13-2024 Provider Orders [id number]#1.00OTGTIFF Normal [facility] MR head/brain wo/w conon MR head/brain wo/w con [facility] [place] [address] MRI Report Signed Patient: Saima Yancey MR#: [id number] : 1995 Acct:[id number] Age/Sex: 28 / F ADM Date: 05/27/23 Loc: MR Room: Type: [facility] Attending Dr: Amanda Samuel APRN, FELT CARB[employer]ER-C Copies to: Amanda Samuel APRN, CNP Ordering [...] Radha Mireles M.D.05/28/2023 8:59 AM Dictation Location: [place] [address] Transcribed By: [facility] 05/28/23 0859 Dictated By: Radha Mireles MD 05/28/23 0852 Signed By: 05/28/23 0859 Normal [facility] PROGESTERONEon 07-17-2022 Progesterone <0.1 Normal [facility] Comment on above: Result Comment: Foll icular phase 0.1 - 0.9 Luteal phase 1.8 - 23.9 Ovulation phase 0.1 - 12.0 First trimester 11.0 - 44.3 Second trimester 25.4 - 83.3 Third trimester 58.7 - 214.0 Postmenopausal 0.0 - 0.1 Performed By: #### P SPRING #### [facility] [address] [place] [address] Dr. Aaron Flores PREG QUANT HCGon 07-15-2022 HCG QUANT <1 Normal [facility] Comment on above: Performed By: #### P REGQNT #### [facility] [address] [address] [address] Aaron Flores HCG RANGE SEE BELOW Normal [facility] Comment on above: Result Comment: 5-50 0.2-1 WEEK 50-500 1-2 WEEKS 100-5,000 2-3 WEEKS 500-10,000 3-4 WEEKS 1,000-50,000 4-5 WEEKS 10,000-100,000 5-6 WEEKS 15,000-200,000 6-8 WEEKS 10,000-100,000 2-3 MONTHS Performed By: #### P REGQNT #### [facility] [address] [place] [address] Dr. Aarno Flores PREG QUANT HCGon 06-05-2022 HCG QUANT <[address] [facility] Comment on above: Performed By: #### P REGQNT #### [facility] [address] [place] [address] Dr. Aaron Flores HCG RANGE SEE BELOW Normal [facility] Comment on above: Result Comment: 5-50 0.2-1 WEEK 50-500 1-2 WEEKS 100-5,000 2-3 WEEKS 500-10,000 3-4 WEEKS 1,000-50,000 4-5 WEEKS 10,000-100,000 5-6 WEEKS 15,000-200,000 6-8 WEEKS 10,000-100,000 2-3 MONTHS Performed By: #### P REGQNT #### [facility] [address] [place] [address] Dr. Aaron Flores PROGESTERONEon 05-08-2022 Progesterone 9.0 ng/mL Normal [facility] Comment on above: Result Comment: Foll icular phase 0.1 - 0.9 Luteal phase 1.8 - 23.9 Ovulation phase 0.1 - 12.0 First trimester 11.0 - 44.3 Second trimester 25.4 - 83.3 Third trimester 58.7 - 214.0 Postmenopausal 0.0 - 0.1 Performed By: #### P SPRING #### [facility] [address] [place] [address] Dr. Aaron Flores PREG QUANT HCGon 05-06-2022 HCG QUANT 1 mIU/mL Normal [facility] Comment on above: Performed By: #### P REGQNT #### [facility] [address] [place] [address] Dr. Aaron Flores HCG RANGE SEE BELOW Normal [facility] Comment on above: Result Comment: 5-50 0.2-1 WEEK 50-500 1-2 WEEKS 100-5,000 2-3 WEEKS 500-10,000 3-4 WEEKS 1,000-50,000 4-5 WEEKS 10,000-100,000 5-6 WEEKS 15,000-200,000 6-8 WEEKS 10,000-100,000 2-3 MONTHS Performed By: #### P REGQNT #### [facility] [address] [place] [address] Dr. Aaron Flores PROGESTERONEon 03-10-2022 Progesterone <0.[address] [facility] Comment on above: Result Comment: Foll icular phase 0.1 - 0.9 Luteal phase 1.8 - 23.9 Ovulation phase 0.1 - 12.0 First trimester 11.0 - 44.3 Second trimester 25.4 - 83.3 Third trimester 58.7 - 214.0 Postmenopausal 0.0 - 0.1 Performed By: #### P SPRING #### [facility] [address] [place] [address] Dr. Aaron Flores PROGESTERONEon 01-04-2022 Progesterone 0.2 ng/mL Normal [facility] Comment on above: Result Comment: Foll icular phase 0.1 - 0.9 Luteal phase 1.8 - 23.9 Ovulation phase 0.1 - 12.0 First trimester 11.0 - 44.3 Second trimester 25.4 - 83.3 Third trimester 58.7 - 214.0 Postmenopausal 0.0 - 0.1 Performed By: #### P SPRING #### [facility] [address] [place] [address] Dr. Aaron Flores CBC AUTO DIFFon 09-14-2021 BASO # 0.0 103/ul Normal 0.0-0.[address] [facility] Comment on above: Performed By: #### C BC #### [facility] [address] [place] [address] Dr. Aaron Flores Basophils/100 WBC (Bld) 0.4 % Normal 0.2-2.[address] [facility] Comment on above: Performed By: #### C BC #### [facility] [address] [place] [address] Dr. Aaron Flores EO # 0.1 103/ul Normal 0.0-0.[address] [facility] Comment on above: Performed By: #### C BC #### [facility] [address] [place] [address] Dr. Aaron Flores Eosinophils/100 WBC (Bld) 1.1 % Normal 0.9-7.[address] [facility] Comment on above: Performed By: #### C BC #### [facility] [address] [place] [address] Dr. Aaron Flores Erythrocyte distribution width (RBC) [Ratio] 11.9 % Normal 11.0-15.[address] [facility] Comment on above: Performed By: #### C BC #### [facility] [address] [place] [address] Dr. Aaron Flores Hematocrit (Bld) [Volume fraction] 46.0 % Normal 36.0-48.[address] [facility] Comment on above: Performed By: #### C BC #### [facility] [address] [place] [address] Dr. Aaron Flores Hemoglobin (Bld) [Mass/Vol] 15.1 g/dL Normal 12.0-16.[address] [facility] Comment on above: Performed By: #### C BC #### [facility] [address] [place] [address] Dr. Aaron Flores IG # 0.00 10e3/ul Normal 0.00-0.[address] [facility] Comment on above: Performed By: #### C BC #### [facility] [address] [place] [address] Dr. Aaron Flores IG % 0.0 % Normal 0.0-0.5 [facility] Comment on above: Performed By: #### C BC #### [facility] [address] [place] [address] Dr. Aaron Flores LYMPH # 1.7 103/ul Normal 1.2-3.8 [facility] Comment on above: Performed By: #### C BC #### [facility] [address] [place] [address] Dr. Aaron Flores Lymphocytes/100 WBC (Bld) 31.9 % Normal 20.5-60.[address] [facility] Comment on above: Performed By: #### C BC #### [facility] [address] [place] [address] Dr. Aaron Flores MANUAL DIFF REQ NO Normal [facility] Comment on above: Performed By: #### C BC #### [facility] [address] [place] [address] Dr. Aaron Flores MCH (RBC) [Entitic mass] 29.7 pg Normal 26.7-34.[address] [facility] Comment on above: Performed By: #### C BC #### [facility] [address] [place] [address] Dr. Aaron Flores MCHC (RBC) [Mass/Vol] 32.8 g/dL Normal 29.9-35.2 [facility] Comment on above: Performed By: #### C BC #### [facility] [address] [place] [address] Dr. Aaron Flores MCV (RBC) [Entitic vol] 90.6 fL Normal 81.0-99.[address] [facility] Comment on above: Performed By: #### C BC #### [facility] [address] [place] [address] Dr. Aaron Flores MONO # 0.3 103/ul Normal 0.3-0.8 [facility] Comment on above: Performed By: #### C BC #### [facility] [address] [place] [address] Dr. Aaron Flores Monocytes/100 WBC (Bld) 5.4 % Normal 1.7-12.0 [facility] Comment on above: Performed By: #### C BC #### [facility] [address] [place] [address] Dr. Aaron Flores NEUT # 3.3 103/ul Normal 1.4-6.5 [facility] Comment on above: Performed By: #### C BC #### [facility] [address] [place] [address] Dr. Aaron Flores Neutrophils/100 WBC (Bld) 61.2 % Normal 43.0-75.0 [facility] Comment on above: Performed By: #### C BC #### [facility] [address] [place] [address] Dr. Aaron Flores Platelet mean volume (Bld) [Entitic vol] 11.9 fL Normal 9.5-13.[address] [facility] Comment on above: Performed By: #### C BC #### [facility] [address] [place] [address] Dr. Aaron Flores PLT 182 103/ul Normal 150-450 [facility] Comment on above: Performed By: #### C BC #### [facility] [address] [place] [address] Dr. Aaron Flores RBC 5.08 106/ul Normal 4.20-5.40 [facility] Comment on above: Performed By: #### C BC #### [facility] [address] [place] [address] Dr. Aaron Flores WBC 5.4 103/ul Normal 4.0-11.[address] [facility] Comment on above: Performed By: #### C BC #### [facility] [address] [place] [address] Dr. Aaron Flores PREG QUANT HCGon 09-14-2021 HCG QUANT 1 mIU/mL Normal [facility] Comment on above: Performed By: #### P REGQNT #### [facility] [address] [place] [address] Dr. Aaron Flores HCG RANGE SEE BELOW Normal [facility] Comment on above: Result Comment: 5-50 0-1 WEEK 40-300 1-2 WEEKS 100-1,000 2-3 WEEKS 500-6,000 3-4 WEEKS 5,000-200,000 1-2 MONTHS 10,000-100,000 2-3 MONTHS 3,000-50,000 2ND TRIMESTER 1,000-50,000 3RD TRIMESTER Performed By: #### P REGQNT #### [facility] [address] [place] [address] Dr. Aaron Flores Covid-19 PCR ([facility])on 08-26 SARS-CoV-2 (COVID-19) RNA ROBINA+probe Ql (Unsp spec) Not detected Normal NOT DETECTED [facility] Comment on above: Result Comment: This test is not yet approved or cleared by the [place] FDA. When there are no FDA-approved or cleared tests available, and other criteria are met, FDA can make tests available under an emergency access mechanism called an Emergency Use Authorization (EUA). The EUA for this test is supported by the [place] of Health and Human Service's (HHS's) declaration [...] SARS-CoV-2. Performed By: #### P ROGES #### [facility] [address] [place] [address] Dr. Aaron Flores PAP ACOG PANEL 2: 21 to 29on 08-27-2021 . . Normal [facility] Comment on above: Performed By: #### P ROGES #### [facility] [address] [address] [address] Aaron Flores Age Gdln ACOG Testing - [facility] Comment on above: Performed By: #### P ROGES #### [facility] [address] [address] [address] Aaron Flores DIAGNOSIS: Comment [facility] Comment on above: Result Comment: NEGA TIVE FOR INTRAEPITHELIAL LESION OR MALIGNANCY. Performed By: #### P ROGES #### [facility] [address] [address] [address] Aaron Flores Methodology: Comment [facility] Comment on above: Result Comment: This liquid based ThinPrep(R) pap test was screened with the use of an image guided system. Performed By: #### P ROGES #### [facility] [address] [place] [address] Dr. Aaron Flores Note: Comment [facility] Comment on above: Result Comment: The Pap smear is a screening test designed to aid in the detection of premalignant and malignant conditions of the uterine cervix. It is not a diagnostic procedure and should not be used as the sole means of detecting cervical cancer. Both false-positive and false-negative reports do occur. . Performed By: #### P SPRING #### [facility] [address] [place] [address] Dr. Aaron Flores Performed by: Comment Normal [facility] Comment on above: Result Comment: Larissa Lopez, Supervisory Maintenance Man (ASCP) Performed By: #### P SPRING #### [facility] [address] [place] [address] Dr. Aaron Flores Reflex Criteria: Comment [facility] Comment on above: Result Comment: The HPV DNA reflex criteria were not met with this specimen result therefore, no HPV testing was performed. . Performed By: #### P ROGJUSTINO #### [facility] [address] [place] [address] Dr. Aaron Flores Specimen adequacy: Comment [facility] Comment on above: Result Comment: Sati sfactory for evaluation. Endocervical and/or squamous metaplastic cells (endocervical component) are present. Performed By: #### P SPRING #### [facility] [address] [place] [address] Dr. Aaron Flores CNOVon 04-11-2017 CNOV Office Visit ([facility]) -SAIMA YANCEY ([id number]) 1995 [facility] Time Provider Tiqvxwmsac43/15/17 7:00 PM JAZMIN NIEVES) EXPNOL During your [...] history is provided by the patient. No speech language assistant was used.Review of SystemsConstitutional: Negative for fever.HENT: [...] of Service: EST PATIENT VISIT LEVEL 3 [[id number]]Disposition: Return if symptoms worsen or fail to improve.Follow-up and Disposition History RecordedEncounter Number: [id number] Status:Closed by JAZMIN NIEVES PA-C on 04/11/[address] [facility] PROGRESSon 04-11-2017 PROGRESS HNO ID: [id number] thor: Jazmin Vega) Sevenervice: (none)Author Type: Physician AssistantType: Progress NotesFiled: 04/11/2017 7:35 PMNote Text:HPI Comments: [facility]- mouth issue HPI- Saima Yancey is a 22 year old female who presents to the [facility] with concerns of R lower gum [...] history is provided by the patient. No speech language assistant was used.Review of SystemsConstitutional: Negative for fever.HENT: Negative for congestion.Respiratory: Negative for cough.Blood pressure 122/67, pulse 98, temperature 36.8 ?C (98.2 ?F),temperature source Oral, weight 104.3 kg (230 lb), last menstrual snnnaj6904/21/2016, not currently .Physical ExamConstitutional: She is oriented [...] foods until ulcer resolveArmida Nieves PA-C Normal [facility] CNOVon 03-29-2017 CNOV Office Visit (EXPNOL) -SAIMA YANCEY ([id number]) 1995 [facility] Time Provider Xzsfbncohy70/2/17 8:35 AM YAAKOV RIDLEY (SUSANA) EXPNOL During [...] ICD10: N92.6- test negative- Follow up with SLD INCLUSION TEACHER/PCP if irregular menses continues- HCG QUAL UR [...] the person should be evaluated by an basket operator.Contact lens wearers ? People who wear contact lenses should be evaluated by [facility] provider before treatment begins; this is to [...] of eye drops or ointment [facility]. This treatment helps to prevent [...] improve within twoweeks, an examination with an basket operator may be recommended.CONJUNCTIVITIS PREVENTIONBacterial and viral conjunctivitis [...] Visit Diagnosis:Irregular menses [N92.6]Order(s):HCG QUAL UR B/O [[id number]] Order #: [id number] tobramycin (TOBREX) 0.3 % ophthalmic solutionUse 1-2 [...] the person should be evaluated by an basket operator. Contact lens wearers ? People who wear [...] within two weeks, an examination with an basket operator may be recommended. CONJUNCTIVITIS PREVENTION Bacterial and [...] Status:Closed by YAAKOV RIDLEY CNP on 03/29/17 [facility] PROGRESSon 03-29-2017 PROGRESS HNO ID: [id number] thor: Yaakov (Admissions Director) STEPHON RidleyService: (none)Author Type: Nurse PractitionerType: Progress [...] ICD10: N92.6- test negative- Follow up with SLD INCLUSION TEACHER/PCP if irregular menses continues- HCG QUAL UR B/Maya Ridley CNP Normal [facility] CNOVon 01-14-2017 CNOV Office Visit ([facility]) -SAIMA YANCEY ([id number]) 1995 FDate Time Provider Department01/14/17 9:00 AM JAMES JONES) [facility] During your visit today, we recorded the following information about you: Pulse Blood pressure 94/minute 120/77Barbara Roque PHILLIP Jones 01/14/2017 10:01 AM [facility]igned[facility] Follow Up VisitS2016 - 9:14 AMSUBJECTIVE:Saima Yancey a 21 year old [facility] accompanied by self only, for [...] supervised home exercise program (HEP): No 5. Frame Sample And Pattern Supervisor: NoPassive conservative therapy in the last six months (see below) 1. Medical devises: No 2. Acupuncture: No 3. Tens unit: No 4. Prescription pain medication: Tramadol 5. NSAIDS: NoDo you fell safe at home? YesRisk assessment at risk due to fall: NONEKalie [facility] 2016 - Time: 9:20 AMThe subjective information: including chief complaint, past medical history andreview of systems, was explored in detail with the patient and edited as neededand is complete.ISIDRO Cantu-[facility]2016Physical Examination:BP 120/77 Pulse 94 SpO2 97% LMP [...] 2017 by Masood Jones PA-C- Ran via [employer] web site - 2 scripts for Tramadol [...] verbalized understanding.ISIDRO Cantu-CSeptember 2016Referring Provider: AGAPITO TORRES [[id number]]Allergies As of Date: 01/14/2017(No Known Allergies)Date Reviewed: [...] by JAMES JONES PA-C on 01/14/[address] [facility] PROGRESSon 01-14-2017 PROGRESS HNO ID: [id number] thor: James Nevarez (Phillip) Bennettervice: (none)Author Type: Physician AssistantType: Progress NotesFiled: 01/14/2017 10:01 AMNote Text:[facility] Follow Up VisitS2016 - 9:14 AMSUBJECTIVE:Saima Yancey a 21 year old [facility], accompanied by self only, for [...] supervised home exercise program (HEP): No 5. Frame Sample And Pattern Supervisor: NoPassive conservative therapy in the last six months (see below) 1. Medical devises: No 2. Acupuncture: No 3. Tens unit: No 4. Prescription pain medication: Tramadol 5. NSAIDS: NoDo you fell safe at home? YesRisk assessment at risk due to fall: NONEAmy María [facility] - Time: 9:20 AMThe subjective information: including chief complaint, past medicalhistory and review of systems, was explored in detail with the patient andedited as needed and is complete.ISIDRO Cantu-CSeptember 2016Physical Examination:BP 120/77 Pulse [...] 2016 by James Jones PA-C- Ran via [employer] web site - 2 scripts for Tramadol [...] above and verbalizedunderstanding.ISIDRO Toledo ra-CSeptember [address] [facility] CNDSNOTEon 12-23-2016 CNDSNOTE Discharge Note (enc) (PTFVGE) -SAIMA YANCEY ([id number]) 1995 FDate Time Provider Department12/23/16 TAMIKO SHIELDS (PT) PTFV[facility] During your visit today, we recorded the following information about you:Tamiko Shields, PT 12/23/2016 6:52 PM SignedS[facility] THERAPY DISCONTINUANCE OF CAREPlan of Care Period:Initial Evaluation Date: 09/09/2016Last Visit Date: 10/07/2016Therapy Program: The following is a summary of the interventions provided forthis episode of care; HEP, Individual PT, Modalities and Therapeutic exercise.Assessment:The following is the goal status:As of last session on 10/07/2016. Patient was to return to MD for furtherrecommendation and has not returned for further PT.[place] in home exercise program. PARTIALLY METPatient will [...] Status:Closed by TAMIKO SHIELDS on 12/23/[address] [facility] PROGRESSon 12-23-2016 PROGRESS HNO ID: [id number] thor: Tamiko (Pt) Staci: (none)Author Type: Physical TherapistType: Progress NotesFiled: 12/23/2016 6:52 PMNote Text:[facility]PH[facility]ICAL THERAPY DISCONTINUANCE OF CAREPlan of Care Period:Initial Evaluation Date: 09/09/2016Last Visit Date: 10/07/2016Therapy Program: The following is a summary of the interventions providedfor this episode of care; HEP, Individual PT, Modalities and Therapeuticexercise.Assessmen t:The following is the goal status:As of last session on 10/07/2016. Patient was to return to MD for furtherrecommendation and has not returned for further PT.[place] in home exercise program. PARTIALLY METPatient will [...] orscheduled additional follow-up appointments.Tamiko Shields, PT Normal [facility] HISTORY PHYSICALon 7 HISTORY PHYSICAL HNO ID: [id number] thor: Diego Muller) MirzaService: Pain ManagementAuthor Type: [...] MEDICAL HISTORYDiagnosis Date- NEGATIVE MEDICAL HISTORYPAST SURGICAL PUKLKRF61/2017: DANDC (MISSED AB 1ST TRIMESTER)No date: NONEPrior [...] 11, 2016 : 2:13 PM PAGER: Normal [facility] OPERATIVE NOon 12-11-2016 OPERATIVE NO HNO ID: [id number] thor: Agapito Solanoice: Pain ManagementAuthor Type: PhysicianType: Operative ReportFiled: 12/11/2016 3:24 PMNote Text:Patient Name Medical Record #Saima Yancey [id number] of : 1995Admit Date: December 11, 2016Sex / Age: female/21 year oldDischarge Date: December 11, 2016Date: December 11, 2016Attending Physician: Beto Alvarezice: OPERATIVE REPORTLOG ID: [id number]/Procedure Date: 12/11/2016Incision/Procedure Start Time: 3:12 PMIncision Close/Procedure End Time: 3:19 PMPREOPERATIVE DIAGNOSIS: Osteoartharitis right KneePOSTOPERATIVE DIAGNOSIS: SameNAME OF OPERATION: right Genicular nerve block under fluoroscopicguidance.SURGEON: ARLEEN AlvarezISTANT: None.ANESTHESIA: Moderate sedation and local anesthesia using: [...] 2 mL of a bupivacaine 0.5% and Fmnpvgy97.33 mg was injected at each of the [...] She was discharged to home in stable condition.Agapito Torres MDAugu 2016 [facility][id number][facility] 1995 [facility] Department11/18/16 10:20 AM AGAPITO TORRES [facility] During your visit today, we recorded the following information about you: Pulse Blood pressure 77/minute 117/73Agapito Torres MD 11/18/2016 2:12 PM [facility] Initial EvaluationJuly 2016 - 11:03 AMThis appointment was requested by Self, for my medical opinion regarding? theevaluation and management of the patient's Saima Yancey problems, and myfinal recommendations will be communicated to the requesting health careprovider by way of the shared medical record for internal providers or lettervia the [employer] for external providers.SUBJECTIVE:Saima Yancey a 21 year old [facility] accompanied by self only, was [...] MEDICAL HISTORYDiagnosis Date- NEGATIVE MEDICAL HISTORYPAST SURGICAL ZLATIPG63/2017: DANDamp;C (MISSED AB 1ST TRIMESTER)No date: NONESocial [...] supervised home exercise program (HEP): No 5. Frame Sample And Pattern Supervisor: NoPassive conservative therapy lasting 6 weeks in [...] Torres M.D.November 18, 2016Referring Provider: JORDI JACKSON [[id number]]Allergies As of Date: 11/18/2016(No Known Allergies)Date Reviewed: [...] by AGAPITO TORRES MD on 11/18/[address] [facility] HOSPon 11-18-2016 HOSP Patient:Emilee Yancey by [...] for the following basenames: K,HCTProgress Notes ([facility] ):Agapito Torres MD 11/18/2016 2:12 PM SignedFair[facility] Initial EvaluationJuly 2016 - 11:03 AMThis appointment was requested by Self, for my medical opinion regarding? theevaluation and management of the patient's Saima Yancey problems, and myfinal recommendations will be communicated to the requesting health careprovider by way of the shared medical record for internal providers or lettervia the [employer] for external providers.SUBJECTIVE:Saima Yancey a 21 year old [facility] accompanied by self only, was [...] MEDICAL HISTORYDiagnosis Date- NEGATIVE MEDICAL HISTORYPAST SURGICAL JGFODZP50/2017: DANDC (MISSED AB 1ST TRIMESTER)No date: NONESocial [...] supervised home exercise program (HEP): No 5. Frame Sample And Pattern Supervisor: NoPassive conservative therapy lasting 6 weeks in [...] controlled substance prescriptions werereported.- 11/18/2016 by NILA CantuTONY AND ASSESSMENT: James [...] Torres M.D.November 18, 2016Previous VersionProgress Notes ([facility]):Nick Kaur Ma 11/11/2016 9:57 AM SignedI called Saima Yancey on November 11, 2016 at 9:55 AM. Left message for patientto call the office. new patient letter sent out also.She was advised of the following:Dear Mr./Mrs/ yancey, This is a follow up phone [...] (Allow the patient to respond.)Nick Aime Palumbo 2016Remynora Aime Rao 11/14/2016 9:41 AM SignedAttempted to call patient for a second time left message, Letter sent out on11/11/16.Nikc Aime Rao [facility] PROGRESSon 11-18-2016 PROGRESS HNO ID: [id number] thor: Agapito Mayer: (none)Author Type: PhysicianType: Progress NotesFiled: 11/18/2016 2:12 PMNote Text:[facility] Initial EvaluationJuly 2016 - 11:03 AMThis appointment was requested by Self, for my medical opinion regarding?the evaluation and management of the patient's Saima Yancey problems,and my final recommendations will be communicated to the requesting healthcare provider by way of the shared medical record for internal providersor letter via the [employer] for external providers.SUBJECTIVE:Saima Yancey a 21 year old [facility] accompanied by self only, was [...] MEDICAL HISTORYDiagnosis Date- NEGATIVE MEDICAL HISTORYPAST SURGICAL KSEFVRV49/2017: DANDC (MISSED AB 1ST TRIMESTER)No date: NONESocial [...] supervised home exercise program (HEP): No 5. Frame Sample And Pattern Supervisor: NoPassive conservative therapy lasting 6 weeks in [...] agreement with the above and verbalizedunderstanding.Thank you . Dr. Jordi Jackson for allowing me to participate in SaimaRoque Christian's care.Agapito Torres M.D.November 18, 2016 [facility]-11[facility] -SAIMA YANCEY ([id number]) 1995 [facility] Time Provider Department11/11/16 AGAPITO TORRES [facility] During your visit today, we recorded the [...] time left message, Letter sent out on11/11/16.Nick Wayneergies As of Date: 11/11/2016(No Known Allergies)Date Reviewed: [...] [M25.561] INVALID FOR*Letter [facility] [id number], [place] [address]Mzztvt: [phone]: [phone] 2016Dear Ms. Saima Nevarez Christian,This is a reminder letter regarding your appointment with Melissa Altman M.D. at [facility] on 10/19/16 at 9:40am [...] you have previously been seen by a [facility] Management provider you will need to [...] your currentprescribing physician.Thank you for you cooperation,[facility] TeamEncounter Number: [id number] Status:Closed by NICK KAUR MA on 11/11/[address] [facility] CNOVon 11-06-2016 CNOV Office Visit ([facility]) -SAIMA YANCEY ([id number]) 1995 [facility] Time Provider Department11/06/16 1:20 PM JORDI JACKSON [...] withsquatting here today.Imaging: [facility] is personallyreviewed by me and demonstrates no [...] to see me on an as-needed basis only.Deborah Tubbs Provider: JOSE HASSAN [[id number]]Allergies As of Date: 11/06/2016(No Known Allergies)Date Reviewed: 11/06/2016Reviewed by: Ronda Acevedo - Fully AssessedReason for Visit: Right Knee Pain [1209]Primary Visit Diagnosis:Patellofemoral stress syndrome of right knee [M22.2X1] Other Visit Diagnosis:Chronic pain of right knee [M25.561, G89.29]Order(s):CONSULT TO PAIN [facility] ANESTHESIA [19990803] Order #: [id number]: 1Prescriptions as of 11/06/2016 Sig: DICLOFENAC 22 [...] INVALID FOR*Follow-up and Disposition History RecordedEncounter Number: [id number] Status:Closed by OJRDI JACKSON MD on 11/06/16 [facility] PROGRESSon 11-06-2016 PROGRESS HNO ID: [id number] thor: Jordi Roervice: (none)Author Type: PhysicianType: Progress [...] squatting here today.Imaging: Magnetic Resonance Imaging from [facility] is personallyreviewed by me and demonstrates no [...] me damian as-needed basis only.Jordi Jackson MD [facility] CNOVon 11-01-2016 CNOV Office Visit ([facility]) -SAIMA YANCEY ([id number]) 1995 [facility] Time Provider Department11/01/16 11:15 AM JOSE HASSAN [...] Up: right kneeHISTORY OF PRESENT ILLNESS: Saima Yancye is a 21 year old female with [...] MEDICAL HISTORYDiagnosis Date- NEGATIVE MEDICAL HISTORYPAST SURGICAL EIZLJKG06/2017: DANDamp;C (MISSED AB 1ST TRIMESTER)No date: NONEFAMILY [...] with Hoffa's fat padimpingement testing.Electronically Signed:Jose Hassan [facility] 2016 11:54 Patricia Hassan MD 11/01/2016 12:01 [...] freezer and let it harden to a [employer] like consistency. Moldit around the part to [...] Status:Closed by JOSE HASSAN MD on 11/01/16 [facility] PROGRESSon 11-01-2016 PROGRESS HNO ID: [id number] thor: Jose Womackervice: (none)Author Type: PhysicianType: Progress [...] MEDICAL HISTORYDiagnosis Date- NEGATIVE MEDICAL HISTORYPAST SURGICAL CVNCJDY01/2017: DANDC (MISSED AB 1ST TRIMESTER)No date: NONEFAMILY [...] testing.Electronically Signed:Don Llanos 2016 11:[address] [facility] MRI KNEE WO IVCON RTon 10-25 MRI KNEE WO IVCON RT * * *Final Report* * *DATE OF EXAM: Oct 25 2016 7:25AM [facility] 0213 - MRI KNEE WO IVCON [...] internal derangement.Remote injury of the fibular collateral ligament.Ux Researcher: ARASH Transcribe Date/Time: Oct 25 2016 8:41ADictated by : Blane QUINTANILLA examination was interpreted and the report reviewed and electronically signed by: CAROL ANN BERRIOS MD on Oct 26 2016 12:12AM EST Normal [facility] PROGRESSon 10-25-2016 PROGRESS HNO ID: [id number] thor: Shad Valdez Mri-TService: (none)Author Type: (none)Type: Progress NotesFiled: 10/25/2016 7:13 AMNote Text: Radiology Service Progress NotePATIENT NAME: Saima YanceyMRN: [id number] OF SERVICE: October 25, 2016TIME: 7:13 AMPATIENT IDENTITY VERIFICATION COMPLETED USING TWO (2) METHODS: Patientconfirmed name verbally and ID band matches..PATIENT GENDER DATA: Female. status: : NoBreastfeeding status: NO.PATIENT RELEVANT IMPLANT DATA REVIEWED: YesRADIOLOGY DEPARTMENT: MR; Exam(s) Completed: Lower MSK: Knee, rightPERIPHERAL IV DATA: Not applicableSIGNED BY: Shad Valdez Mri-TJune 2016 7:[address] [facility] Vital Signs Date Time Vital Sign Value Performing Clinician Facility 06-09-2024 16:37-0500 Body mass index (BMI) [Ratio] 35.88 kg/m2 Kalie FELIX Work Phone: [facility] 06-09-2024 16:37-0500 Body weight 110.22 kg Kalie FELIX Work Phone: [facility] 06-09-2024 16:37-0500 Diastolic blood pressure 72 mm[Hg] Kalie FELIX Work Phone: [facility] 06-09-2024 16:37-0500 Systolic blood pressure 128 mm[Hg] Kalie FELIX Work Phone: [facility] 04-07-2024 17:04-0500 Body mass index (BMI) [Ratio] 33.91 kg/m2 Kalie Flasher PA Work Phone: [facility] 04-07-2024 17:04-0500 Body weight 104.15 kg Kalie Calvin PA Work Phone: [facility] 03-11-2024 15:51-0500 Body height 175.3 cm Kalie Flasher PA Work Phone: [facility] 03-11-2024 15:51-0500 Body mass index (BMI) [Ratio] 34.26 kg/m2 Kalie Flasher PA Work Phone: [facility] 03-11-2024 15:51-0500 Body weight 105.23 kg Kalie Flasher PA Work Phone: [facility] 03-11-2024 15:51-0500 Diastolic blood pressure 84 mm[Hg] Kalie Calvin PA Work Phone: [facility] 03-11-2024 15:51-0500 Systolic blood pressure 128 mm[Hg] Kalie Flasher PA Work Phone: [facility] 02-04-2024 15:52-0400 Body height 175.3 cm Kalie Flasher PA Work Phone: [facility] 02-04-2024 15:52-0400 Body mass index (BMI) [Ratio] 34.41 kg/m2 Kalie Calvin PA Work Phone: [facility] 02-04-2024 15:52-0400 Body weight 105.69 kg Kalie Flasher PA Work Phone: [facility] 02-04-2024 15:52-0400 Diastolic blood pressure 70 mm[Hg] Kalie Calvin PA Work Phone: [facility] 02-04-2024 15:52-0400 Systolic blood pressure 126 mm[Hg] Kalie Calvin PA Work Phone: [facility] 01-08-2024 13:31-0400 Body mass index (BMI) [Ratio] 35.62 kg/m2 Jasmeet Haydee DO Work Phone: [facility] [place] 01-08-2024 13:31-0400 Body weight 109.41 kg Jasmeet Haydee DO Work Phone: [facility] [place] 01-08-2024 13:31-0400 Diastolic blood pressure 62 mm[Hg] Jasmeet Haydee DO Work Phone: [facility] 01-08-2024 13:31-0400 Systolic blood pressure 126 mm[Hg] Jasmeet Haydee DO Work Phone: [facility] 05-20-2023 10:00-0500 Body height 171.45 cm Darci Chen Other [facility] Other 05-20-2023 10:00-0500 Body mass index (BMI) [Ratio] 40.12 kg/m2 Darci Chen Other [facility] Other 05-20-2023 10:00-0500 Body weight 117.94 kg Darci Chen Other [facility] Other 05-20-2023 10:00-0500 Diastolic blood pressure 90 mm[Hg] Darci Chen Other [facility] Other 05-20-2023 10:00-0500 SaO2% (BldA) [Mass fraction] 97 % Darci Chen Other [facility] Other 05-20-2023 10:00-0500 Systolic blood pressure 127 mm[Hg] Darci Chen Other [facility] Other 04-30-2023 14:30-0500 Body height 171.45 cm Amanda Samuel Other [facility] Other 04-30-2023 14:30-0500 Body mass index (BMI) [Ratio] 39.96 kg/m2 Amanda Sidhur Other [facility] Other 04-30-2023 14:30-0500 Body weight 117.48 kg Amanda Burgosacher Other [facility] Other 04-30-2023 14:30-0500 Diastolic blood pressure 82 mm[Hg] Amanda Becerrilrbacher Other [facility] Other 04-30-2023 14:30-0500 SaO2% (BldA) [Mass fraction] 99 % Amanda Sidhur Other [facility] Other 04-30-2023 14:30-0500 Systolic blood pressure 120 mm[Hg] Amanda Burgosacher Other [facility] Other 12-25-2022 10:45-0400 Body height 171.45 cm Amanda Sidhur Other [facility] Other 12-25-2022 10:45-0400 Body mass index (BMI) [Ratio] 42.74 kg/m2 Amanda Sidhur Other [facility] Other 12-25-2022 10:45-0400 Body weight 125.65 kg Amanda Sidhur Other [facility] Other 12-25-2022 10:45-0400 Diastolic blood pressure 84 mm[Hg] Amanda Burgosacher Other [facility] Other 12-25-2022 10:45-0400 Systolic blood pressure 120 mm[Hg] Amanda Burgosacher Other [facility] Other 10-11-2021 10:45-0400 Body height 171.45 cm Nick Ng Other [facility] Other 10-11-2021 10:45-0400 Body mass index (BMI) [Ratio] 38.73 kg/m2 Nick Olexa Other [facility] Other 10-11-2021 10:45-0400 Body weight 113.85 kg Nick Olexa Other [facility] Other Encounters Encounter Date Encounter Type Care Provider Facility Start: 06-22-2024 End: 06-22-2024 Bamboo flowsheet Jasmeet Haydee DO Work Phone: [facility] Start: 06-22-2024 End: 06-22-2024 Bamboo flowsheet Jasmeet Haydee DO Work Phone: [facility] Start: 06-22-2024 End: 06-22-2024 Office outpatient visit 15 minutes Jasmeet Haydee DO Work Phone: [facility] Comment on above: Pre-op examination; Pelvic pain in female Start: 06-22-2024 End: 06-22-2024 Preprocedural examination done Jasmeet Haydee DO Work Phone: [facility] Start: 06-22-2024 End: 06-22-2024 ambulatory JASMEET HAYDEE Not Available Start: 06-09-2024 End: 06-09-2024 Office outpatient visit 15 minutes Kalie FELIX Work Phone: [facility] Comment on above: Encounter for follow -up; Hypokalemia; Exposure to STD; Yeast infection Start: 06-09-2024 End: 06-09-2024 ambulatory KALIE SIMPSON Not Available Start: 06-09-2024 End: 06-09-2024 Bamboo flowsheet Kalie FELIX Work Phone: [facility] Start: 06-09-2024 End: 06-11-2024 Bamboo flowsheet Kalie FELIX Work Phone: [facility] Start: 06-09-2024 End: 06-11-2024 External Result Encounter Kalie FELIX Work Phone: [facility] External Department Unsolicited Start: 05-21-2024 [facility] Start: 05-19-2024 End: 05-19-2024 ambulatory [facility] Start: 05-13-2024 End: 05-13-2024 [facility] Start: 05-12-2024 End: 05-12-2024 [facility] Start: 05-11-2024 End: 05-11-2024 Chart abstracting Alessia Fregoso MD Work Phone: [facility] Start: 04-07-2024 End: 04-07-2024 Office outpatient visit 10 minutes Kalie FELIX Work Phone: [facility] Comment on above: Encounter for manage ment and injection of depo-Provera; Encounter to discuss test results; Encounter for weight management Start: 04-07-2024 End: 04-07-2024 ambulatory KALIE SIMPSON Not Available Start: 04-07-2024 End: 04-07-2024 Bamboo flowsheet Kalie FELIX Work Phone: [facility] Start: 04-07-2024 End: 04-07-2024 Bamboo flowsheet Kalie FELIX Work Phone: [facility] Start: 03-26-2024 End: 03-26-2024 ambulatory [facility] Start: 03-17-2024 End: 03-17-2024 ambulatory Kalie FELIX Facility:[facility] Start: 03-16-2024 End: 03-16-2024 Emergency department patient visit Amanda Jimmie Facility:[facility] Start: 03-12-2024 End: 03-12-2024 ambulatory [facility] Facility:[facility] Start: 03-11-2024 End: 03-11-2024 ambulatory KALIE SIMPSON Not Available Start: 03-11-2024 End: 03-11-2024 Office outpatient visit 15 minutes Kalie Simpson PA Work Phone: [facility] Comment on above: Well adult exam; Pelvic pain in female; Encounter for weight management Start: 03-11-2024 End: 03-11-2024 Bamboo flowsheet Kalie Simpson PA Work Phone: [facility] Start: 03-11-2024 End: 03-11-2024 Bamboo flowsheet Kalie Simpson PA Work Phone: [facility] Start: 03-11-2024 End: 03-11-2024 Patient encounter status Kalie Simpson PA Work Phone: [facility] Start: 02-13-2024 End: 02-13-2024 ambulatory [facility] Facility:[facility] Start: 02-04-2024 End: 02-04-2024 Office outpatient visit 15 minutes Kalie Simpson PA Work Phone: [facility] Comment on above: Encounter for weight management; Weight gain Start: 02-04-2024 End: 02-04-2024 ambulatory KALIE SIMPSON Not Available Start: 02-04-2024 End: 02-04-2024 Bamboo flowsheet Kalie Simpson PA Work Phone: [facility] Start: 02-04-2024 End: 02-04-2024 Bamboo flowsheet Kalie Simpson PA Work Phone: [facility] Start: 01-06-2024 End: 01-06-2024 Office outpatient visit 10 minutes Jasmeet Haydee DO Work Phone: [facility] Comment on above: Encounter for weight management Start: 12-09-2023 End: 12-09-2023 ambulatory JASMEET HAYDEE Not Available Start: 08-27-2023 End: 08-27-2023 ambulatory KALIE SIMPSON Not Available Start: 07-31-2023 End: 07-31-2023 ambulatory KALIE SIMPSON Not Available Start: 07-03-2023 End: 07-03-2023 ambulatory KALIE SIMPSON Not Available Start: 06-02-2023 End: 06-02-2023 ambulatory AIR LIAISON AND SPECIAL STAFFBill Samuel Work Phone: [facility] Work Phone: Start: 06-02-2023 End: 06-02-2023 Patient encounter procedure [facility] LIA[facility] AND SPECIAL STAFFBill Samuel Work Phone: [facility]Sleep Lab Work Phone: Start: 05-27-2023 End: 05-27-2023 Patient encounter procedure [employer] LIA[employer] AND SPECIAL STAFFBill Samuel Work Phone: [facility] [place] Work Phone: Start: 05-27-2023 End: 05-27-2023 ambulatory [facility] LIA[facility] AND SPECIAL STAFFBill Samuel Work Phone: [facility] Work Phone: Start: 05-20-2023 Office outpatient vi sit 40 minutes Darci Chen [facility] Start: 05-20-2023 End: 05-20-2023 Patient encounter procedure ROCHELLE Samuel Work Phone: [facility] Work Phone: Start: 05-20-2023 End: 05-20-2023 ambulatory [facility] AND SPECIAL STAFFBill Samuel Work Phone: [facility] Other Start: 05-05-2023 End: 05-05-2023 ambulatory [facility]IA[facility] AND SPECIAL STAFFBill Samuel Work Phone: [facility] Work Phone: Start: 05-05-2023 End: 05-05-2023 Patient encounter procedure [employer] [facility] AND SPECIAL STAFFBill Samuel Work Phone: [facility] Work Phone: Start: 04-30-2023 End: 04-30-2023 ambulatory Amanda Samuel Other [facility] Other Start: 04-30-2023 Office outpatient vi sit 15 minutes Amanda Samuel [facility] Start: 04-30-2023 End: 04-30-2023 Patient encounter procedure AIR LIAISON AND SPECIAL STAFFBill Samuel Work Phone: [facility] Work Phone: Start: 03-17-2023 End: 03-17-2023 Patient encounter procedure ROCHELLE Samuel Work Phone: [facility] Work Phone: Start: 12-25-2022 End: 12-25-2022 ambulatory Amanda Samuel Other [facility] Other Start: 12-25-2022 Office outpatient vi sit 15 minutes Amanda Samuel [facility] Start: 07-15-2022 End: 07-16-[address] JASMEET HUBBARD . Facility:[facility] Start: 06-12-2022 End: 06-12-2022 ambulatory Amanda Samuel Other [facility] Other Start: 06-12-2022 Encounter by jose Samuel [facility] Start: 06-05-2022 End: 06-06-[address] JASMEET HUBBARD . Facility:[facility] Start: 05-06-2022 End: 05-07-[address] JASMEET HUBBARD . Facility:[facility] Start: 03-08-2022 End: 03-09-[address] JASMEET HUBBARD . Facility:[facility] Start: 01-25-2022 End: 01-25-2022 ambulatory Nick Ng Other [facility] Other Start: 01-25-2022 Telephone encounter Nick Olexa [facility] Start: 01-24-2022 End: 01-24-2022 ambulatory AIR LIAISON AND SPECIAL STAFFBill Samuel Work Phone: [facility] Work Phone: Start: 01-24-2022 End: 01-24-2022 Patient encounter procedure AIR LIAISON AND SPECIAL STAFFBill Samuel Work Phone: [facility] [place] Start: 01-16-2022 End: 01-16-2022 ambulatory Amanda Mueller Other [facility] Other Start: 01-16-2022 Office outpatient vi sit 15 minutes Amanda Mueller [facility] Start: 01-03-2022 End: 01-04-[address] JASMEET HUBBARD . Facility: Start: 12-06-2021 End: 12-06-2021 ambulatory Nick Olexa Other [facility] Other Start: 12-06-2021 Postop follow up vis it related to original px Nick Olexa [facility] Start: 12-06-2021 End: 12-06-2021 Patient encounter procedure [facility]IA[facility] AND SPECIAL STAFFBill Samuel Work Phone: [facility] Start: 11-22-2021 End: 11-22-2021 ambulatory Nick Olexa Other [facility] Other Start: 11-22-2021 Telephone encounter Nick Olexa [facility] Start: 11-13-2021 End: 11-13-2021 ambulatory Nick Olexa Other [facility] Other Start: 11-13-2021 Telephone encounter Nick Olexa [facility] Start: 11-08-2021 End: 11-08-2021 Patient encounter procedure [employer]AFF Amanda Samuel Work Phone: [facility] Start: 10-11-2021 (Post-Op) Post-Op Nick Ng [facility] Start: 10-11-2021 End: 10-11-2021 ambulatory Nick Ng Other [facility] Other Start: 10-01-2021 End: 10-01-2021 ambulatory Amanda Samuel Other [facility] Other Start: 10-01-2021 Telephone encounter Amanda Jcarlos her [facility] Start: 09-28-2021 End: 09-28-2021 ambulatory Amanda Samuel Other [facility] Other Start: 09-28-2021 Telephone encounter Amanda Garber her [facility] Start: 09-27-2021 End: 09-27-2021 ambulatory Nick Ng Other [facility] Other Start: 09-27-2021 Office outpatient ne w 45 minutes Nick Ng [facility] Start: 09-27-2021 Telephone encounter Amanda Mueller [facility] Start: 09-14-2021 End: 09-14-[address] JASMEET HUBBARD . Facility:[facility] Start: 09-14-2021 Encounter for preprocedural laboratory examination DR JASMEET HUBBARD . [facility] Start: 09-11-2021 End: 09-12-[address] JASMEET HUBBARD . Facility:[facility] Start: 09-11-2021 End: 09-12-2021 Encounter for preprocedural laboratory examination DR JASMEET HUBBARD . Facility:[facility] Start: 09-05-2021 Encounter for other preprocedural examination DR JASMEET HUBBARD . [facility] Start: 09-03-2021 End: 09-04-[address] JASMEET HUBBARD . Facility: Start: 09-03-2021 End: 09-04-2021 Encounter for other preprocedural examination DR JASMEET HUBBARD . Facility: Start: 08-20-2021 End: 08-20-[address] JASMEET HUBBARD . Facility: Start: 04-11-2017 End: 04-14-[address] [facility] Start: 03-29-2017 End: 03-31-[address] [facility] Start: 01-14-2017 End: 01-14-2017 [facility] Start: 12-11-2016 Ambulatory [facility] Start: 11-18-2016 End: 12-16-[address] [facility] Start: 11-06-2016 End: 11-06-[address] [facility] Start: 11-01-2016 End: 11-01-2016 Ambulatory JOSE Ram MARTHAALISTAIR [facility] Start: 10-25-2016 End: 10-25-2016 Ambulatory JOSE Ram [facility] Procedures Date Procedure Procedure Detail Performing Clinician Start: 06-09-2024 RECURRENT VAGINITIS (HTRX) Kalie FELIX Work Phone: Start: 05-27-2023 MRI of head [facility]IA[facility] AND SPECIAL STAFFBill Samuel Work Phone: Start: 01-24-2022 MRI of right knee [employer] [employer] Amanda Samuel Work Phone: Start: 12-06-2021 X-ray of right knee APR N Amanda Samuel Work Phone: Start: 11-08-2021 X-ray of right knee APR N Amanda Samuel Work Phone: Plan of Treatment Date Care Activity Detail Author Start: 08-16-2026 DTaP,Tdap and Td Vaccines (9 - Td or Tdap) DTaP,Tdap and Td Vaccines (9 - Td or Tdap) [facility] Start: 12-20-2024 End: 12-20-2024 Patient encounter procedure 12/20/2024 4:00 PM EDT Office Visit [facility] [address] [place] [id number] Jasmeet Hubbard, DO [address] [place] [address] [facility] Start: 07-07-2024 End: 07-07-2024 Patient encounter procedure 07/07/2024 9:30 AM EDT Office Visit [facility] [address] [place] [address] Kalie Simpson PA [address] [place], [place] [id number] [facility] Start: 06-22-2024 End: 06-22-2024 Patient encounter procedure [facility] Comment on above: Arrived Start: 06-09-2024 End: 06-09-2024 Patient encounter procedure [facility] Comment on above: Arrived Start: 05-13-2024 End: 05-13-2024 Patient encounter procedure 05/13/2024 8:15 AM EST Office Visit [facility] [address] [phone] Alessia Fregoso MD [address] [facility] [address] [facility] Start: 05-03-2024 End: 05-03-2024 Patient encounter procedure 05/03/2024 8:00 AM EST Office Visit [facility] [address] [place] [address] Jasmeet Hubbard, DO [address] [place] [address] [facility] Start: 04-07-2024 End: 04-07-2024 Patient encounter procedure [facility] Comment on above: Arrived Start: 04-05-2024 End: 04-05-2024 Patient encounter procedure 04/05/2024 3:30 PM EST Office Visit [facility] [address] [place] [phone] Kalie Simpson PA [address] [place] [address] [facility] Start: 03-11-2024 End: 03-11-2025 Lipid 1996 panel - Serum or Plasma Lipid panel Lab Routine Well adult exam Expected: 03/11/2024 (Approximate), Expires: 03/11/2025 [facility] Comment on above: Expected: 03/11/2024 (Approximate), Expires: 03/11/2025 Start: 03-11-2024 End: 03-11-2025 US for US PELVIS-TRANSVAG IF INDICATED Imaging Routine Pelvic pain in female Expected: 03/11/2024 (Approximate), Expires: 03/11/2025 [facility] Comment on above: Expected: 03/11/2024 (Approximate), Expires: 03/11/2025 Start: 03-08-2024 End: 03-08-2024 Patient encounter procedure 03/08/2024 8:00 AM EST Office Visit [facility] [address] [phone] Jasmeet Hubbard DO [address] [place] [address] [facility] Start: 02-04-2024 End: 02-04-2024 Patient encounter procedure [facility] Comment on above: Arrived Start: 12-28-2023 COVID-19 Vaccine ( season) COVID-19 Vaccine ( season) [facility] Start: 12-28-2023 Influenza vaccination [facility] Start: 05-27-2023 MR Unspecified body region [facility] Start: 05-27-2023 MRI of head MR head/brain wo/w con [facility] Start: 09-30-2022 Adult BMI Screening Adult BMI Screen ing [facility] [email or web address] [facility] Start: 2018 Screening for malign ant neoplasm of cervix Pap Smear [facility] Start: 2009 Depression Screening Depression Scre ening [facility] Start: 2009 Tobacco Screening Tobacco Screening [facility] CBC W Auto Different ial panel - Blood CBC and differential Lab Routine Well adult exam Ordered: 03/11/2024 [facility] Comment on above: Ordered: 03/11/2024 Comprehensive metabo lic 2000 panel - Serum or Plasma Comprehensive metabolic panel Lab Routine Well adult exam Ordered: 03/11/2024 [facility] Comment on above: Ordered: 03/11/2024 Hemoglobin A1c/Hemoglobin.total in Blood Hemoglobin A1c Lab Routine Well adult exam Ordered: 03/11/2024 [facility] Comment on above: Ordered: 03/11/2024 Thyrotropin [Units/volume] in Serum or Plasma TSH Lab Routine Well adult exam Ordered: 03/11/2024 [facility] Work Phone: Comment on above: Ordered: 03/11/2024 Immunizations Immunization Date Immunization Notes Care Provider [facility] 01-28-2020 influenza, injectabl e, quadrivalent, contains preservative Amanda Samuel Other [facility] Other 01-28-2020 influenza virus vaccine, unspecified formulation Jasmeet Hubbard DO Work Phone: [facility] 08-16-2016 diphtheria, tetanus toxoids and acellular pertussis vaccine Amanda Samuel Other [facility] Other 02-27-2010 influenza virus vaccine, split virus (incl. purified surface antigen) Amanda Samuel Other [facility] Other 11-09-2008 human papilloma viru s vaccine, quadrivalent Amanda Samuel Other [facility] Other 07-05-2008 human papilloma viru s vaccine, quadrivalent Amanda Samuel Other [facility] Other 05-10-2008 human papilloma viru s vaccine, quadrivalent Amanda Jimmie Other [facility] Other 04-12-2008 diphtheria, tetanus toxoids and acellular pertussis vaccine Amanda Jimmie Other [facility] Other 04-12-2008 meningococcal polysaccharide (groups A, C, Y and W-135) diphtheria toxoid conjugate vaccine (MCV4P) Amanda Jimmie Other [facility] Other 04-12-2008 varicella virus vaccine Carmen pratibhaluna Samuel Other [facility] Other 12-07-2001 diphtheria, tetanus toxoids and acellular pertussis vaccine Amanda Jimmie Other [facility] Other 12-07-2001 poliovirus vaccine, inactivated Amanda Jimmie Other [facility] Other 04-16-2000 measles, mumps and rubella virus vaccine Amanda Jimmie Other [facility] Other 07-14-1998 diphtheria, tetanus toxoids and acellular pertussis vaccine Amanda Thear Other [facility] Other 07-14-1998 haemophilus influenz ae type b vaccine, PRP-OMP conjugate Amanda Jimmie Other [facility] Other 04-13-1998 measles, mumps and rubella virus vaccine Amanda Jimmie Other [facility] Other 04-13-1998 varicella virus vaccine Carmen mariam Jimmie Other [facility] Other 1997 diphtheria, tetanus toxoids and acellular pertussis vaccine Amanda Thear Other [facility] Other 1997 haemophilus influenz ae type b vaccine, PRP-OMP conjugate Amanda Thear Other [facility] Other 1997 hepatitis B vaccine, pediatric or pediatric/adolescent dosage Amanda Samuel Other [facility] Other 1997 poliovirus vaccine, inactivated Amanda Thear Other [facility] Other 1997 diphtheria, tetanus toxoids and acellular pertussis vaccine Amanda Thear Other [facility] Other 1997 haemophilus influenz ae type b vaccine, PRP-OMP conjugate Amanda Thear Other [facility] Other 1997 poliovirus vaccine, inactivated Amanda Lorettaacher Other [facility] Other 1997 diphtheria, tetanus toxoids and acellular pertussis vaccine Amanda Lorettaacher Other [facility] Other 1997 haemophilus influenz ae type b vaccine, PRP-OMP conjugate Amanda Lorettaacher Other [employer] Other 1997 hepatitis B vaccine, pediatric or pediatric/adolescent dosage Amanda Samuel Other [employer] Other 1997 poliovirus vaccine, inactivated Amanda Sidhur Other [employer] Other 1997 hepatitis B vaccine, pediatric or pediatric/adolescent dosage Amanda Sidhur Other [employer] Other Payers Date Payer Category Payer Medicaid [place]ICA[place] [id number] 2024 Unknown 2024 Commercial Managed [facility] [employer] [id number] 2024 Private Health Insurance [employer] [id number]. [id number] 2024 Unknown [id number] 2023 Private Health Insurance [id number] 2023 Self-pay [id number] 2022 Medicaid [id number] 1997 Unknown [id number] 2.16.840.1.020299.3.579.2. 593 1997 Unknown [id number] 2.16.840.1.155234.3.579.2. 593 1997 Unknown [id number] 2.16.840.1.344559.3.579.2. 593 1997 Unknown [id number] 2.16.840.1.187267.3.579.2. 593 1997 Unknown [id number] 2.16.840.1.167023.3.579.2. 593 1997 Unknown [id number] 2.16.840.1.126649.3.579.2. 593 1997 Unknown [id number] 2.16.840.1.790521.3.579.2. 593 1997 Unknown [id number] 2.16.840.1.344012.3.579.2. 593 1997 Unknown [id number] 2.16.840.1.236975.3.579.2. 593 1997 Unknown [id number] 2.16.840.1.612969.3.579.2. 1286 1997 Unknown [id number] 2.16.840.1.941143.3.579.2. 718 1997 Unknown [id number] 2.16.840.1.417722.3.579.2. 8 1997 Unknown [id number] 2.16.840.1.444615.3.579.2. 8 1997 Unknown [id number] 2.16.840.1.159969.3.579.2. 1997 Unknown [id number] 2.16.840.1.746079.3.579.2. 8 1997 Unknown [id number] 2.16.840.1.429371.3.579.2. 1286 1997 Unknown [id number] 2.16.840.1.923628.3.579.2. 1258 1997 Unknown [id number] 2.16.840.1.356173.3.579.2. 1258 1997 Unknown [id number] 2.16.840.1.110118.3.579.2. 1258 1997 Unknown [id number] 2.16.840.1.394887.3.579.2. 1258 1997 Unknown [id number] 2.16.840.1.476200.3.579.2. 1258 1997 Unknown [id number] 2.16.840.1.718205.3.579.2. 1258 1997 Unknown [id number] 2.16.840.1.718849.3.579.2. 1258 1997 Unknown [id number] 2.16.840.1.978232.3.579.2. 1258 1997 Unknown [id number] 2.16.840.1.005907.3.579.2. 9 1959 Blue Cross Blue Shield [id number] 2.16.840.1.243422.19 1959 Unknown [id number] 2.16.840.1.471932.19 Unknown [id number] 2.16.840.1.285207.3.579.2. 531 Unknown [id number] 2.16.840.1.120816.3.579.2. 531 Unknown [id number] 2.16.840.1.025048.3.579.2. 531 Unknown [id number] 2.16.840.1.286721.3.579.2. 531 Social History Date Type Detail Facility Unknown if ever smoked [facility] [employer] Other Start: 02-04-2024 End: 05-11-2024 Sex Assigned At [facility] [employer] Other Start: 1995 Sex Assigned At Female F [facility] Start: 09-30-2021 End: 02-04-2024 Tobacco smoking status OHIS Never smoked tobacco [facility] Start: 09-30-2021 End: 02-04-2024 Tobacco use and exposure Smokeless tobacco non-user [facility] Start: 02-04-2024 End: 06-22-2024 Alcoholic beverage intake Lifetime non-drinker (finding) [facility] Start: 02-04-2024 End: 05-11-2024 History of Social function [facility] Start: 11-06-2022 Gender identity Identifies as female gender (finding) [facility] Start: 1997 Sex assigned at Not on file P [facility] Start: 03-21-2021 Sex Female (finding) [facility] Clinical Notes 08-26-2021 to 06-22-2024 Radha Lerma LPN - 06/22/2024 1:00 PM ISIDRO [place] - 06/09/2024 4:00 PM ESTTelephone Encounter - Amanda Hernandez CMA - 05/12/2024 1:09 PM IS[facility] [place] - 04/07/2024 3:40 PM EST Note Date & Type Note Facility 06-22-2024 History of Presen t illness Narrative Reason for Appointment: Patient ID: Saima Yancey is a 29 y.o. female who presents for Pre-op Visit Patient presents today for Pre Op appointment. Patient is scheduled to undergo Diagnostic Laparoscopy, possible ZENA, possible FOE, possible BSO on 07/16/[address] Hubbard at [facility]. MEDICATIONS Current Outpatient Medications Medication Instructions citalopram (CELEXA) 20 mg, Oral, Daily Potassium 99 MG tablet ALLERGIES No Known Allergies PROBLEMS Active Ambulatory [...] Respiratory: Negative. Cardiovascular: Negative. Gastrointestinal: Negative. Genitourinary: Positive for pelvic pain. Negative for menstrual problem. Musculoskeletal: Negative. Skin: Negative. Neurological: Negative. All [...] nursing note reviewed. Exam conducted with a cone sewer present. Vitals: Estimated body mass index is 35.88 kg/m as calculated from the following: Height as of 03/11/24: 5' 9 . Weight as of 06/09/24: 243 lb. BP: Patient's last menstrual period was 05/29/2024. ASSESSMENT & PLAN ICD-10-CM 1. Pre-op examination Z01.818 2. Pelvic pain in female R10.2 Pre Op: Patient is doing well but has complaints of pelvic pain. I have discussed conservative management vs. surgical management with the patient in detail and patient desires surgical management at this time. Patient will undergo Diagnostic Laparoscopy, possible ZENA, possible FOE, possible BSO on 07/16/2024. Surgical consents were signed, mmc was reviewed, and patient is to proceed to [facility] OR. Follow Up: Patient is to follow up between 1-2 weeks post operative to assess proper healing and recovery from procedure. Documented by Radha Lerma LPN on behalf of: Jasmeet Hubbard DO documented in this encounter [facility] 06-09-2024 History of Presen t illness Narrative Reason for Appointment: Patient ID: Saima Yancey is a 29 y.o. female who presents for Follow-up (Pt present today for a f/up cardiology visit. Pt was seen on 04/07/2024 an ER visit and to f/up w/cardiology in next few months. Pt was to f/up w/her PCP and Cardiology. ) and STI Screening (Having discharge and some itching wants std check.) Patient presents today for Acute Visit. MEDICATIONS Current Outpatient Medications Medication Instructions citalopram (CELEXA) 20 mg, Oral, Daily fluconazole (DIFLUCAN) 150 mg, Oral, Once, This is a 1 time dose, take single tablet by mouth. metFORMIN XR (GLUCOPHAGE-XR) 500 mg, Oral, Daily [...] 2007 SECTION, LOW TRANSVERSE 2019 TONSILLECTOMY 2006 REVIEW OF SYSTEMS Review of Systems: Review [...] reviewed. Vitals: Estimated body mass index is 35.88 kg/m as calculated from the following: Height as of 03/11/24: 5' 9 . Weight as of this encounter: 243 lb. BP: 128/72 No LMP recorded. ASSESSMENT & PLAN ICD-10-CM 1. Encounter for follow-up Z09 2. Hypokalemia E87.6 3. Exposure to STD Z20.2 4. Yeast infection B37.9 fluconazole (Diflucan) 150 MG tablet Patient presents for vaginal discharge with irritation and itching. Exam consistent with yeast. Vaginal cultures obtained. Diflucan sent to pharmacy and pt will be notified if further tx needed. Pt also cleared by cardiology so patient voiced concern to get diagnostic lap scheduled due to continued pelvic pain Documented by ISIDRO Jeff on behalf of: ISIDRO Jeff documented in this encounter [facility] 05-26-2024 Note [id number] Miscellaneous Notes Called patient to remind them to bring their most current copy of their medication list with them to their appt. Patient verbalizes understanding. [facility] Tele[facility] encounter Note Called patient to remind them to bring their most current copy of their medication list with them to their appt. Patient verbalizes understanding. [facility] [email or web address] [facility] 04-07-2024 History of Presen t illness Narrative [...] of: ISIDRO Jeff documented in this encounter [facility] 03-16-2024 Note Education Materials Emergency Medicine Sinus [...] electrical activity of the heart. ? Ambulatory personnel monitor. This records your heartbeats for 24 hours or more. You may be referred to a museum specialist (bag shop worker). How is this treated? Treatment for this [...] keep your urine pale yellow. ? Take ksmf-sjh-hpsjpxe and prescription medicines only as told by [...] provider. Document Revised: 08/13/2022 Document Reviewed: 08/13/2022 [employer] Patient Education ? 2023 [employer] Gastroenterology Nonspecific Chest Pain Chest pain can [...] to know whet (more content not included)... [facility] 03-11-2024 History of Presen t illness Narrative [...] nursing note reviewed. Exam conducted with a cone sewer present. Vitals: Estimated body mass index is [...] of: ISIDRO Jeff documented in this encounter [facility] 02-04-2024 History of Presen t illness Narrative [...] of ISIDRO Jeff documented in this encounter [facility] 01-06-2024 History of Presen t illness Narrative Pt presents today for a nurse Televisit for her 2nd Adipex script. She states that she is doing well with the Adipex. Denies any issues or concerns. She is down 7lbs from last appointment. Pt is coming to office to sampler pickup script. Pt advised to return to the office in 4 weeks for next Adipex script Documented on behalf of Dr. Jasmeet Hubbard by Jojo Garza LPN Total time spent on phone conversation was 5 minutes. documented in this encounter [facility] 05-20-2023 Evaluation note Encounter Date Diagnosis Assessment [...] changes in symptoms and/or problems with treatment [employer] Other 01-03-2024 Evaluation note* Encounter Date Diagnosis [...] Family history of migraine (ICD-10 - Z82.0) [employer] Other 08-30-2023 Evaluation note* Encounter Date Diagnosis Assessment Notes Treatment Notes Treatment Clinical Notes Nov, Bronchitis (ICD-10 - J40) Discussed diagnosis with patient. Patient to start Zithromax. Patient to take Zithromax daily with food as prescribed. Finish entire course of antibiotic. Tessalon Pearles ordered to take as needed for cough. Increase fluids and rest. Ufkf-rwh-vkaamfz antipyretics as needed. Warning signs and symptoms reviewed with patient today. Patient to go immediately to the ER should she experience any of these. Patient to notify office should her symptoms persist and not improve. Patient verbalizes understanding and agrees to treatment plan. [employer] Other 09-21-2022 Evaluation note* Encounter Date Diagnosis [...] of pain and plan potential surgical treatment. [employer] Other 08-11-2022 Evaluation note* Encounter Date Diagnosis [...] one with metal stays. Call with questions/concerns. [employer] Other 06-16-2022 Evaluation note* Encounter Date Diagnosis [...] to continue off work at this time. [employer] Other 06-02-2022 Evaluation note* Encounter Date Diagnosis [...] in a brace. Aspirin for DVT prophylaxis [facility] Other 05-20-2022 [place]The [place], [place] NAME: SAIMA YANCEY DATE OF : MEDICAL REC#: [id number] MARINE RIGGER: [id number] [employer], TRANSADMIT DATE: 09/14/2021 10:36:00 GROUP HOME WORKER DATE: 09/16/2021 02:00 DICTATING PHYSICIAN: JASMEET HUBBARD DICTATION DATE: 09/14/2021 13:00 OPERATIVE NOTE OPERATION DATE: 09/14/2021 PROCEDURE: Diagnostic laparoscopy. PREOPERATIVE DIAGNOSIS: Pelvic pain. POSTOPERATIVE DIAGNOSIS: Pelvic pain. ANESTHESIA: General. SURGEON: Jasmeet Hubbard M.D. CAN TOP SETTER: JANELL De Souza URINE OUTPUT: Yellow and [...] Hubbard DO on 09/17/2021 07:39 AM EDT [facility] Signed and Approved by: DR JASMEET HUBBARD . 09/17/2021 07:39:00[facility]05-01-2022 History general Narrative - Reported* Type Description Date Medical History Headaches Medical History Concussion, without loss of consciousness, initial encounter Surgical History tonsillectomy Surgical History D&C Surgical History laparoscopy 08/2021 Surgical History C section 12/2018 Hospitalization History Dehydration 2000 Hospitalization History Miscarriage D&C [employer] Other Evaluation noteNo InformationNort [employer] Other evaluation noteNo assessment information available [facility] Work Phone: evaluation note* Diagnosis Encounter for weight management Weight gain Other symptoms concerning nutrition, metabolism, and development documented in this encounter [facility] HealthcareEvaluation note* Diagnosis Well adult exam Routine general medical examination at a health care facility Pelvic pain in female Unspecified symptom associated with female genital organs Encounter for weight management documented in this encounter [facility] Healthcare[facility] note* Diagnosis Encounter for management and injection of depo-Provera Encounter to discuss test results Other specified counseling Encounter for weight management documented in this encounter [facility]* Diagnosis Encounter for weight management documented in this encounter [facility]* Diagnosis Encounter for follow-up Hypokalemia Hypopotassemia Exposure to STD Yeast infection documented in this encounter [facility] HealthcareEvaluation note* Diagnosis Pre-op examination Pelvic pain in female Unspecified symptom associated with female genital organs documented in this encounter [facility] HealthcareHistory general Narrative - Reported* Type Description Date Medical History Headaches Medical History Concussion, without loss of consciousness, initial encounter Medical History PCOS Medical History Endometrosis Surgical History tonsillectomy Surgical History D&C Surgical History laparoscopy 08/2021 Surgical History C section 12/2018 Hospitalization History Dehydration 2000 Hospitalization History Miscarriage D&C [facility] Other InstructionsNot on filedocumented in this encounter [employer] SystemInstructionsNot on filedocumented in this encounter [facility] [email or web address] System Summary Purpose Family History No Family History [...] section and content) DATE CREATED AUTHOR 10/21/2017 [facility] DATE CREATED AUTHOR AUTHOR'S ORGANIZ ATION 10/22/2017 [facility] DATE CREATED AUTHOR AUTHOR'S ORGANIZ ATION 08/06/2022 [facility] DATE CREATED AUTHOR AUTHOR'S ORGANIZ ATION 01/17/2024 [facility] DATE CREATED AUTHOR AUTHOR'S ORGANIZ ATION 05/16/2024 [facility] DATE CREATED AUTHOR AUTHOR'S ORGANIZ ATION 05/28/2024 [facility] DATE CREATED AUTHOR AUTHOR'S ORGANIZ ATION 06/12/2024 [facility] DATE CREATED AUTHOR AUTHOR'S ORGANIZ ATION 06/24/2024 [facility] EPIC REASON FOR VISIT (unrecogniz ed section and content) Reason Comments Weight Management Reason Comments Weight Management Results Reason Comments Follow-up Pt present today for a f/up cardiology visit. Pt was seen on 04/07/2024 an ER visit and to f/up w/cardiology in next few months. Pt was to f/up w/her PCP and Cardiology. STI Screening Having discharge and some itching wants std check. Reason Comments Pre-op Visit Care Teams (unrecognized sec tion and content) Team Status: Inactive Member Role Status Dates Amanda Samuel APRN FELT CARBONIZER-C Primary Care Provider Active Amanda L Winchester , FELT CARBONIZER-C Attending Provider Active Team Status: Inactive Member Role Status Dates Amanda Samuel APRN FELT CARBONIZER-C Primary Care Provider Active Nick Ng MD Attending Provider Active Team Status: Active Member Role Status Dates Amanda Samuel APRN FELT CARBONIZER-C Primary Care Provider Active Team Status: Inactive Member Role Status Dates Darci Chen MD Attending Provider Active Amanda Samuel APRN FELT CARBONIZER-C Primary Care Provider Active Team Status: Inactive Member Role Status Dates Amanda Samuel APRN FELT CARBONIZER-C Attending Provider Act gilberto Start: March 17, 2023 End: March 17, 2023 Team Status: Inactive Member Role Status Dates Amanda Samuel APRN FELT CARBONIZER-C Attending Provider Act gilberto Start: April 30, 2023 End: April 30, 2023 Team Status: Inactive Member Role Status Dates Darci Chen MD Attending Provider Active S tart: May 05, 2023 End: May 05, 2023 Amanda Samuel APRN FELT CARBONIZER-C Primary Care Provider Active Start: May 05, 2023 End: May 05, 2023 Team Status: Inactive Member Role Status Dates Darci Chen MD Attending Provider Active S tart: May 20, 2023 End: May 20, 2023 Amanda Samuel APRN FELT CARBONIZER-C Primary Care Provider Active Start: April End: May 20, 2023 Team Status: Inactive Member Role Status Dates Amanda Samuel APRN FELT CARBONIZER-C Primary Care Provider, Attending Provider Active Start: May 27, 2023 End: May 27, 2023 Team Status: Inactive Member Role Status Dates Amanda Samuel APRN FELT CARBONIZER-C Primary Care Provider Active Start: May End: June 02, 2023 Darci Chen MD Attending Provider Active S tart: June 02, 2023 End: June 02, 2023 Marine Rigger Relationship Specialty Start Date End Date Amanda Samuel NP [address] [place] [address] PCP - General Family Medicine 11/13/22 Marine Rigger Relationship Specialty Start Date End Date Amanda Samuel NP [address] [place] [address] PCP - General Family Medicine 11/13/22 Marine Rigger Relationship Specialty [place] [address] [place] [address] [place] [address] PCP - General Family Medicine 11/13/22 Marine Rigger Relationship Specialty Start Date End Date Amanda Samuel NP [address] [place] [address] [place] [address] PCP - General Family Medicine 11/13/22 Marine Rigger Relationship Specialty Start Date End Date Amanda Samuel NP [address] [place] [address] [place] [address] PCP - General Family Medicine 11/13/22 Marine Rigger Relationship Specialty Start Date End Date Amanda Samuel NP [address] [place] [address] [place] [address] PCP - General Family Medicine 11/13/22 Marine Rigger Relationship Specialty Start Date End Date Amanda Samuel NP [address] [place] [address] PCP - General Family Medicine 11/13/22 Marine Rigger Relationship Specialty Start Date End Date Amanda Samuel NP [address] [place] [address] [place] [address] PCP - General Family Medicine 11/13/22 Marine Rigger Relationship Specialty Start Date End Date Amanda Samuel NP [address] [place] [address] [place] [address] PCP - General Family Medicine 11/13/22 Marine Rigger Relationship Specialty Start Date End Date Amanda Samuel NP [address] [place] [address] PCP - General Family Medicine 11/13/22 Marine Rigger Relationship Specialty Start Date End Date Amanda Samuel NP [address] [place], [place] [address] [address] PCP - General Family Medicine 11/13/22 Goals [...] BE BASED ON THE PRIMARY CLINICAL RECORDS. [employer] [facility]. provides no warranty or guarantee of the accuracy or completeness of information in this document.
== END 2024-07-07 14:34 | disposition home or self-care (01) ==
PROVIDERS: PCP Nurse Practitioner Family; Visit Provider Obstetrics & Gynecology
DX: Z01.818 Encounter for other preprocedural examination (principal); R10.2 Pelvic and perineal pain

== ENCOUNTER 2024-07-16 08:46 | Day surgery (SDC) | payer MEDICAID, SELFPAY ==
[2024-07-07 15:08] VITALS: BP 107/74; PULSE 84; TEMP 36.2; O2SAT 99; BMI 36.7
[2024-07-16] VITALS (14 sets, daily range): BP systolic 101–158; BP diastolic 78–97; PULSE 86–146; TEMP 35.9–36.1; O2SAT 94–100; BMI 37.0
[2024-07-16 08:58] LABS: Basophils Percent Auto 0.4 % (0.2-2.0); Eosinophils Absolute Auto 0.1 10^3/uL (0.0-0.7); Eosinophils Percent Auto 1.1 % (0.9-7.0); Hematocrit 42.2 % (36.0-48.0); Hemoglobin 14.5 g/dL (12.0-16.0); Immature Granulocytes Abs Auto 0.01 10^3/uL (0.00-0.03); Immature Granulocytes Pct Auto 0.2 % (0.0-0.5); Lymphocytes Absolute Auto 1.4 10^3/uL (1.2-3.8); Lymphocytes Percent Auto 31.3 % (20.5-60.0); Mean Corpuscular HGB Conc 34.4 g/dL (29.9-35.2); Mean Corpuscular Hemoglobin 31.4 pg (26.7-34.0); Mean Corpuscular Volume 91.3 fL (81.0-99.0); Mean Platelet Volume 10.4 fL (9.5-13.5); Monocytes Absolute Auto 0.2 10^3/uL (0.3-0.8); Monocytes Percent Auto 5.3 % (1.7-12.0); Neutrophils Absolute Auto 2.8 10^3/uL (1.4-6.5); Neutrophils Percent Auto 61.7 % (43.0-75.0); Platelet Count 243 10^3/uL (150-450); Red Blood Count 4.62 10^6/uL (4.20-5.40); Red Cell Distribution Width 11.6 % (11.0-15.0); White Blood Count 4.5 10^3/uL (4.0-11.0)
[2024-07-16 09:20] LABS: HCG Quantitative <1 mIU/mL
[2024-07-16] MEDS: LACTATED RINGER'S SOLUTION 1,000 ML 50 ML IV ×2 (09:27→12:20)
--- NOTE | 2024-07-16 11:21 | PM.ONB ---
Brief Operative Note Date of procedure: 07/16/24 Pre-op diagnosis general: pelvic pain Post-op diagnosis: same as pre-op Procedure: NAME OF PROCEDURE: [diagnostic laparoscopy ] PROCEDURE: The patient was taken back to the Operating Room where she was placed in dorsal lithotomy position after given general anesthesia. The patient was prepped and draped in normal sterile fashion. A sponge stick was placed into the patient's vagina. Attention was turned to the patient's abdomen, where a small umbilical incision was made. The fascia was tented using Arcenio clamps and the fascia was entered sharply. Confirmation of intraabdominal placement of the 10 mm port was confirmed under direct visualization using a laparoscope. The patient's abdomen was then insufflated using CO2 gas with approximately 4 liters. A second port was placed left laterally, this was done under direct visualization with a 5 mm port. Survey of the patient's abdomen demonstrated normal liver and gallbladder. Survey of the patient's pelvic anatomy demonstrated normal appearing rt and lt ovary and tubes as well as normal appearing uterus. No endometrial implants could be noted, no evidence of any pelvic disease was seen, normal appearing pelvic cavity. All instruments were removed from the patient's abdomen. The patient's abdomen was deinsufflated of CO2 gas. The patient tolerated the procedure well. Sponge stick was removed from the patient's vagina. The patient's infraumbilical fascia was closed using #0 Vicryl on a GI needle. The patient's skin was closed laterally and infraumbilically using 4-0 Vicryl. The patient tolerated the procedure well. Sponge, lap and needle counts were correct x 2. The patient was taken to Recovery Room in stable condition. Anesthesia: SANDRA Surgeon: Jasmeet Hubbard Neurological Surgeon: Tawana Vega Estimated blood loss (mL): 5 Pathology: none sent Condition: stable Disposition: PACU Urinary Catheter Management Urinary Catheter Management Urethral: Cath placed during this visit: no
== END 2024-07-16 13:54 | disposition home or self-care (01) ==
PROVIDERS: PCP Nurse Practitioner Family; Visit Provider Obstetrics & Gynecology
PROC: (CPT 840; principal; 2024-07-16 09:45)
DX: R10.2 Pelvic and perineal pain (principal); E28.2 Polycystic ovarian syndrome
CPT/HCPCS: 49320; 36415; 84702; 85025; J1100; J1885; J2250; J2405; J2704; J3010

== ENCOUNTER 2024-11-17 12:13 | Outpatient (OUT) | payer OTHER, SELFPAY ==
--- OUTSIDE RECORDS SUMMARY | 2015-10-03 06:53 | XMS_ITS | Continuity of Care Document ---
Author Organization [facility] Address [address] [place] [address] Phone Care Team Providers Care Hand Mica Plate Layer Name Role Phone Lloyd STEPHON DELGADO, Lenore [...] Diagnoses Date Provider Providers Copied on Encounter [facility], [address] [place] [address], [id number] , tel: [phone] [facility] No Information Sep- 6 [facility] Lenore. [address] [place] [address], [id number] , [place]. tel: [phone] OFFICE/OUTPA TIENT VISIT, EST [facility], [address] [place] [address], [id number] , [place] tel: [phone] [facility] Test of Reinfection (chief complaint) Irregular periodsGonococca l cervicitis 6 [facility] Lenore. [address] [place] [address], [id number] , [place]. tel: [phone] OFFICE/OUTPA TIENT VISIT, EST [facility], [address] [place], [place], [id number] , [place] tel: [phone] [facility] Medication Administration (chief complaint) Gonococcal infection of lower genitourinary tract, unspecified 6 [facility] Lenore. [address] [place] [address], [id number] , [place]. tel: [phone] PREV VISIT, EST, AGE 18-39 [facility], [address] [place] [address], [id number] , [place] tel: [phone] [facility] Update (chief complaint)annua l exam (chief complaint)contr aception (chief complaint) Encounter for sexually transmitted disease screeningOther problems related to lifestyleEncount er for general music grapher exam with abnormal findingsIrregula r periods 6 [facility] Lenore. [address] [place] [address], [id number] , [place]. tel: [phone] PREV VISIT, EST, AGE 12-17 [facility], [address] [place] [address], [id number] , [place] tel: [phone] [facility] physical (chief complaint) General medical exam for sports competitionPre employment health screening 0- 5 León Bauer. [address] [place], [place], [id number] , [place]. tel: [phone] [facility], [address] [place] [address], [id number] , [place] tel: [phone] [facility] sports physical (chief complaint) No Information 5 León Bauer. [address] [place], [place], [id number] , [place]. tel: [phone] [facility], [address] [place] [address], [id number] , [place] tel: [phone] [facility] nexplanon (chief complaint)Rocep hin (chief complaint) Encounter for insertion of implantable subdermal contraceptiveGon orrhea 3 5 Lloyd [facility] Len[place]. [address] [place] [address], [id number] , [place]. tel: [phone] PREV VISIT, NEW, AGE 12-17 [facility], [address] [place] [address], [id number] , [place] tel: [phone] [facility] annual exam (chief complaint) Annual pelvic exam 0 5 [facility] Lenore. [address] [place] [address], [id number] , [place]. tel: [phone] Family History Family Member Type Diagnosis Age [...] (finding) Payers Payer name Insurance type Covered democrat ID Authorchristinea tiallan(s) Medicaid [facility] [id number] Social History Type Description Quantity Date Captured [...] desires results. Related to Encounter for general music grapher exam with abnormal findings Patient to receive [...]
--- OUTSIDE RECORDS SUMMARY | 2024-11-17 12:17 | XMS_ITS | Encounter Summary ---
Author Organization [facility] Address [address] [place], [place] [id number] Care Team Providers Care Measurement Coordinator Name Role Phone Indira Bazan MD Primary Care Provider [phone] Pcp, Yaquelin TELEPH[employer] SERVICES SALES REPRESENTATIVE Primary Care Provider Unavailabl e Source Comments In the event this information is protected by the Federal Confidentiality of Alcohol and Drug AbusePatient Records regulations: The Federal rules restrict any use of the information to criminally investigate or prosecute any alcohol or drug abuse patient.[facility] Encounter Details Date Type Department Care Team (Late st Contact Info) Description 10/07/2016 Get Medical Advice [facility] [address] [place] [address] Adalberto Mason MD [address] [place] [id number] RE: Visit Follow Up Question Social History Tobacco Use Types Packs/Day Years Used Date Smoking Tobacco: Never Smokeless Tobacco: Never Alcohol Use Standard Drinks/Week Comments No 0 (1 standard drink = 0.6 oz pur e alcohol) Comments No Sex and Gender Information Value Date Recorded Sex Assigned at Not on file Legal Sex Female 4:50 PM EDT Gender Identity Not on file Sexual Orientation Not on file documented as of this encounter Functional Status * Are you deaf or do you have serious difficulty hearing? Answer Date of Assessment Author No 07/15/2016 10:49 AM Clarissa Conway RN * Are you blind or do you have serious difficulty seeing, even when wearing glasses? Answer Date of Assessment Author No 07/15/2016 10:49 AM Clarissa Conway RN * Do you have serious difficulty walking or climbing stairs? Answer Date of Assessment Author No 07/15/2016 10:49 AM Clarissa Conway RN * Do you have difficulty dressing or bathing? Answer Date of Assessment Author No 07/15/2016 10:49 AM Clarissa Conway RN * Because of a physical, mental, or emotional condition, do you have difficulty doing errands alone such as visiting a doctor's office or shopping? Answer Date of Assessment Author No 07/15/2016 10:49 AM Clarissa Conway RN documented as of this encounter Mental Status * Because of a physical, mental, or emotional condition, do you have serious difficulty concentrating, remembering, or making decisions? Answer Entry Date Author No 07/15/2016 10:49 AM Clarissa Conway RN documented in this encounter Plan of Treatment Not on file documented as of this encounter Visit Diagnoses Not on filedocumented in this encounter Care Teams Measurement Coordinator Relationship Specialty Start Date End Date Indira Bazan MD PCP - General Internal Medicine 08/14/16 05/26/17 Yaquelin Tucker APRN PCP - General 05/27/17 12/26/17 documented as of this encounter
--- OUTSIDE RECORDS SUMMARY | 2024-11-17 12:18 | XMS_ITS | Encounter Summary ---
Author Organization [facility] Address [address] [place] [address] Care Team Providers Care Rehab Liaison Name Role Phone Linette Samuelnifer Leanna GREY GOODS MARKER Primary Care Provider Encounter Details Date Type Department Care Team (Late st Contact Info) Description 07/16/2024 Abstract [facility] [address] [place] [address] Jasmeet Hubbard DO [address] [place] [address] Dr [place], [facility]11 Social History Tobacco Use Types Packs/Day Years Used Date Smoking Tobacco: Never Smokeless Tobacco: Never Alcohol Use Standard Drinks/Week Comments Never 0 (1 standard drink = 0.6 oz pur e alcohol) Comments No Sex and Gender Information Value Date Recorded Sex Assigned at Female 11/06/2022 8:56 AM EDT Legal Sex Female 8:14 PM EDT Gender Identity Female 11/06/2022 8:56 AM EDT Sexual Orientation Not on file documented as of this encounter Plan of Treatment Upcoming Encounters Date Type Department Care Team (Late st Contact Info) Description 11/22/2024 10:30 AM EDT Office Visit [facility] OB [address] [place], [place] [address] [place] [address] Kalie Simpson PA [address] [place] [address] Dr [place], [facility]11 12/20/2024 4:00 PM EDT Office Visit [facility] OB [facility] [place] [address] Jasmeet Hubbard, DO [address] [place] [address] [place] [address] documented as of this encounter Visit Diagnoses Not on filedocumented in this encounter Care Teams Rehab Liaison Relationship Specialty Start Date End Date Amanda Samuel NP [facility] [facility] [place] [address] PCP - General Family Medicine 11/13/22 documented as of this encounter
--- OUTSIDE RECORDS SUMMARY | 2024-11-17 12:18 | XMS_ITS | Encounter Summary ---
Author Organization [facility] Address [address] [place] [address] Care Team Providers Care Balance Staff Staker Name Role Phone JerricaAmanda fonseca Leanna PURSE FRAMER Primary Care Provider Encounter Details Date Type Department Care Team (Late st Contact Info) Description 09/07/2024 Abstract [facility] OB [address] [facility] [address] Lenore Blackwell LPN Social History Tobacco Use Types Packs/Day Years [...] 11/22/2024 10:30 AM EDT Office Visit [facility] OB [address] [place] [address] Kalie Simpson PA [address] [place] [address] 12/20/2024 4:00 PM EDT Office Visit [facility] OB [address] [facility] [place] [address] Jasmeet Hubbard, [address] [facility] [place] [address] documented as of this encounter Visit Diagnoses Not on filedocumented in this encounter Care Teams Balance Staff Staker Relationship Specialty Start Date End Date Amanda Samuel NP [address] [place] [address] [place] [address] PCP - General Family Medicine 11/13/22 documented as of this encounter
--- OUTSIDE RECORDS SUMMARY | 2024-11-17 12:18 | XMS_ITS | Encounter Summary ---
Author Organization [facility] Address [facility] [id number] [address] [place] [address] Care Team Providers Care Fur Examiner Name Role Phone Amanda Samuel APRN-SUSANA Primary Care Provid er Encounter Details Date Type Department Care Team (Late st Contact Info) Description 05/10/2024 Orders Only [facility] [address] [place] [address] External, Scanning Provider Social History Tobacco Use Types Packs/Day Years Used Date Smoking Tobacco: Never Smokeless Tobacco: Never Hunger Screening Answer Date Recorded Within the past 12 months we worried whether our food would run out before we got money to buy more. Never True 05/13/2024 Within the past 12 months th e food we bought just didn't last and we didn't have money to get more. Never True 05/13/2024 Comments Unknown Sex and Gender Information Value Date Recorded Sex Assigned at Not on file Legal Sex Female 2:21 PM EST Gender Identity Not on file Sexual Orientation Not on file documented as of this encounter Plan of Treatment Not on file documented as of this encounter Procedures Procedure Name Priority Date/Time Associated Diagnosis Comments MULTIPLE LABS Routine 04/29/2024 1:54 PM EST ECG 12-LEAD Routine 04/29/2024 1:50 PM EST MULTIPLE LABS Routine 03/17/2024 1:48 PM EST ECG 12-LEAD Routine 03/16/2024 1:46 PM EST documented in this encounter Results * Multiple labs (04/29/2024 1:54 PM EST) us Scanning Provider External [facility] Final Result MANUALLY TRANSCRIBED RESULTS * ECG 12 lead (04/29/2024 1:50 PM EST) us Scanning Provider External ECG ORDERABLES Final Result Performing Organization Address [facility] Phone Number MANUALLY TRANSCRIBED RESULTS * Multiple labs (03/17/2024 1:48 PM EST) us Scanning Provider External [facility] Final Result Performing Organization Address [facility] Phone Number MANUALLY TRANSCRIBED RESULTS * ECG 12 lead (03/16/2024 1:46 PM EST) us Scanning Provider External ECG ORDERABLES Final Result Performing Organization Address [facility] Phone Number MANUALLY TRANSCRIBED RESULTS documented in this encounter Visit Diagnoses Not on filedocumented in this encounter Care Teams Fur Examiner Relationship Specialty Start Date End Date Amanda Samuel APRN-SUSANA [address] [place] [address] PCP - General Nurse Practitioner 05/13/24 documented as of this encounter
--- OUTSIDE RECORDS SUMMARY | 2024-11-17 12:18 | XMS_ITS | Encounter Summary ---
Author Organization [facility] Address [address] [facility] [place] [address] Care Team Providers Care Track Subway Repair Supervisor Name Role Phone Rach Hernandezfer Leanna NUT SHELLER Primary Care Provider Encounter Details Date Type Department Care Team (Late st Contact Info) Description 03/19/2024 Clinisync Result Encounter [facility] External Department Unsolicited Kalie Parson, PA [address] [facility] [address] [place], [facility]11 Social History Tobacco Use Types [...] 11/22/2024 10:30 AM EDT Office Visit [facility] [address] [facility] [place] [address] Kalie Parson PA [address] [facility] [address] [place], [facility]11 12/20/2024 4:00 PM EDT Office Visit [facility] [address] [facility] [place] [address] Jasmeet Hubbard DO [address] [facility] [place] [address] documented as of this encounter Procedures Procedure Name Priority Date/Time Associated Diagnosis Comments US PELVIS W/ TRANSVAGINAL 03/19/2024 5:28 AM EST documented in this encounter Results * US PELVIS W/ TRANSVAGINAL (03/19/2024 5:28 AM EST) Anatomical Region Laterality Modality Other 03/19/2024 5:28 AM EST Narrative 03/19/2024 5:30 AM EST [address] [address] Ultrasound Report Signed Patient: SAIMA GONZALES MR#: [id number] : 1995 Acct:[id number] Age/Sex: 28 / F ADM Date: 03/17/24 Loc: US Attending Dr: Kalie Parson Ordering Physician: Kalie Parson Date of Service: 03/17/24 Procedure(s): US pelvis w/ transvaginal Accession Number(s): [id number] cc: Kalie Parson; VENU HERNANDEZ [address] [address] Patient Name: SAIMA GONZALES MRN: [id number] date: 1995 Sex: F Assigned Patient Location: US Current Patient Location: Accession/Order Number: [id number] Exam Date: 03/17/2024 19:29 Report Date: 03/19/2024 05:28 At the request of: KALIE PARSON Procedure: US pelvis w/ transvaginal EXAMINATION: US pelvis w/ transvaginal HISTORY: PELVIC PAIN IN FEMALE R10.2 COMPARISON: Ultrasound pelvis transvaginal 07/07/2023 TECHNIQUE: Transabdominal and/or transvaginal sonographic examination was performed as indicated by examination type. FINDINGS: UTERUS: Normal size and appearance. Uterus size: 9.2 x 5.3 x 5.8 cm ENDOMETRIUM: Normal homogeneous appearance. Endometrial thickness: 6 mm RIGHT OVARY: Normal size and appearance. Duplex Doppler demonstrates normal waveform and flow; resistive index 0.5. Ovary size: 4.0 x 1.9 x 2.5 cm LEFT OVARY: Normal size and appearance. Duplex Doppler demonstrates normal waveform and flow; resistive index 0.6. Ovary size: 3.7 x 1.6 x 2.5 cm CUL-DE-SAC: Unremarkable. No significant free fluid. BLADDER: Unremarkable. OTHER: None. US/US pelvis w/ transvaginal IMPRESSION: 1. Normal pelvic ultrasound. Electronically authenticated by: MARCELLA ZAMBRANO Date: 03/19/2024 05:28 Dictated By: Marcella Zambrano M.D. Signed By: 03/19/24529 DD/ 7 TD/TT: Metal Cut Off Saw Tender: Procedure Note Radiology, Radiologist, MD - 03/19/2024 [place] [address] Ultrasound Report Signed Patient: SAIMA GONZALES LMR#: [id number] : 1995Acct:[id number] Age/Sex: 28 / FADM Date: 03/17/24 Loc: US Attending Dr: Kalie Parson Ordering Physician: Kalie Parson Date of Service: 03/17/24 Procedure(s): US pelvis w/ transvaginal Accession Number(s): [id number] cc: Kalie Parson; VENU HERNANDEZ [place] [id number] Patient Name: SAIMA GONZALES MRN: [id number] date: 1995 Sex: F Assigned Patient Location: US Current Patient Location: Accession/Order Number: [id number] Exam Date: 03/17/2024 19:29 Report Date: 03/19/2024 05:28 At the request of: KALIE PARSON Procedure: US pelvis w/ transvaginal EXAMINATION: US pelvis w/ transvaginal HISTORY: PELVIC PAIN IN FEMALE R10.2 COMPARISON: Ultrasound pelvis transvaginal 07/07/2023 TECHNIQUE: Transabdominal and/or transvaginal sonographic examination was performed as indicated by examination type. FINDINGS: UTERUS: Normal size and appearance. Uterus size: 9.2 x 5.3 x 5.8 cm ENDOMETRIUM: Normal homogeneous appearance. Endometrial thickness: 6 mm RIGHT OVARY: Normal size and appearance. Duplex Doppler demonstratesnormal waveform and flow; resistive index 0.5. Ovary size: 4.0 x 1.9 x 2.5 cm LEFT OVARY: Normal size and appearance. Duplex Doppler demonstrates normal waveform and flow; resistive index 0.6. Ovary size: 3.7 x 1.6 x 2.5 cm CUL-DE-SAC: Unremarkable. No significant free fluid. BLADDER: Unremarkable. OTHER: None. US/US pelvis w/ transvaginal IMPRESSION: 1. Normal pelvic ultrasound. Electronically authenticated by: MARCELLA ZAMBRANO Date: 03/19/2024 05:28 Dictated By: Marcella Zambrano M.D. Signed By:03/19/24529 DD/ 7 TD/TT: Metal Cut Off Saw Tender: us Kalie [facility] Final Result documented in this encounter Visit Diagnoses Not on filedocumented in this encounter Care Teams Track Subway Repair Supervisor Relationship Specialty Start Date End Date Venu Hernandez NP [address] [place], [place] [id number] PCP - General Family Medicine 11/13/22 documented as of this encounter
--- OUTSIDE RECORDS SUMMARY | 2024-11-17 12:18 | XMS_ITS | Encounter Summary ---
Author Organization [facility] Address [facility] [id number] [address] [place] [address] Care Team Providers Care Electronic Design Engineer Name Role Phone Amanda Samuel APRN-EXCELLENCE CONSULTANT Primary Care Provid er Encounter Details Date Type Department Care Team (Late st Contact Info) Description 05/20/2024 Orders Only [facility] [address] [place] [address] Amanda Styles MA Palpitations Social History Tobacco Use Types Packs/Day Years Used Date Smoking Tobacco: Never Smokeless Tobacco: Never Alcohol Use Standard Drinks/Week Comments Yes 0 (1 standard drink = 0.6 oz pur e alcohol) rarely Hunger Screening Answer Date Recorded Within the [...] Procedure Name Priority Date/Time Associated Diagnosis Comments ECHO COMPLETE WO CONTRAST Routine 05/19/2024 Palpitations documented in this encounter Results * Echo complete W/O contrast (05/19/2024) Anatomical Region Laterality Modality Chest N/A Ultrasound us Alessia Fregoso MD CV ECHO ORDERABLES Final Res ult documented in this encounter Visit Diagnoses Diagnosis Palpitations documented in this encounter Care Teams Electronic Design Engineer Relationship Specialty Start Date End Date Amanda Samuel APRN-EXCELLENCE CONSULTANT [address] [place] [address] PCP - General Nurse Practitioner 05/13/24 documented as of this encounter
--- OUTSIDE RECORDS SUMMARY | 2024-11-17 12:18 | XMS_ITS | Encounter Summary ---
Author Organization [facility] Address [address] [place] [address] Care Team Providers Care Industrial Hire Sales Assistant Name Role Phone Rach Samuelfer Leanna PHYSICAL THERAPY ATTENDANT Primary Care Provider Encounter Details Date Type Department Care Team (Late st Contact Info) Description 09/25/2023 Abstract [facility] OB [address] [facility] [place] [address] Jasmeet Hubbard DO [address] [place] [address] Dr [place], [facility]11 Social History Tobacco Use Types Packs/Day Years Used Date Smoking Tobacco: Never Alcohol Use Standard Drinks/Week Comments Never 0 (1 standard drink = 0.6 oz pur e alcohol) Comments Unknown Sex and Gender Information Value Date Recorded Sex Assigned at Female 11/06/2022 8:56 AM EDT Legal Sex Female 8:14 PM EDT Gender Identity Female 11/06/2022 8:56 AM EDT Sexual Orientation Not on file documented as of this encounter Plan of Treatment Upcoming Encounters Date Type Department Care Team (Late st Contact Info) Description 11/22/2024 10:30 AM EDT Office Visit [facility] [address] [place] [address] Kalie Simpson PA [address] [place], [facility]11 12/20/2024 4:00 PM EDT Office Visit [facility] [place] [address] [place] [address] Jasmeet Hubbard, [address] [place] [address] documented as of this encounter Visit Diagnoses Not on filedocumented in this encounter Care Teams Industrial Hire Sales Assistant Relationship Specialty Start Date End Date Amanda Samuel NP [address] [facility] [place] [address] PCP - General Family Medicine 11/13/22 documented as of this encounter
--- OUTSIDE RECORDS SUMMARY | 2024-11-17 12:18 | XMS_ITS | Encounter Summary ---
Author Organization [facility] Address [address] [place] [address] Care Team Providers Care Equal Opportunity Representative Name Role Phone JerricabladimirjanellAmanda gregg Leanna QUALITY CHECKER Primary Care Provider Encounter Details Date Type Department Care Team (Late st Contact Info) Description 12/16/2023 Orders Only [facility] [address] [place] [address] Katya Driscoll MA [address] [place] [address] [place] [address] Social History Tobacco Use Types Packs/Day Years [...] Visit [facility] [address] [facility] [address] Kalie Simpson PA [address] [place], [place] [address] [place], [facility]11 12/20/2024 4:00 PM EDT Office Visit [facility] OB [address] [place], [place] [address] [address] Jasmeet Hubbard DO [address] [place] [address] [place] [address] documented as of this encounter Procedures Procedure Name Priority Date/Time Associated Diagnosis Comments PAP SMEAR Routine 12/09/2023 12:00 AM EDT documented in this encounter Results * Pap Smear (12/09/2023 12:00 AM EDT) Swab Cervical swab / Unknown us Jasmeet Hubbard DO LAB CYTOLOGY ORDERABLES Final Re sult EXTERNAL LAB documented in this encounter Visit Diagnoses Not on filedocumented in this encounter Care Teams Equal Opportunity Representative Relationship Specialty Start Date End Date Amanda Samuel, SUSANA [address] [facility] [place] [address] PCP - General Family Medicine 11/13/22 documented as of this encounter
--- OUTSIDE RECORDS SUMMARY | 2024-11-17 12:18 | XMS_ITS | Encounter Summary ---
Author Organization [facility] Address [address] [place] [address] Care Team Providers Care Smoked Meat Preparer Name Role Phone Rach Samuelfer Leanna HOPPER OPERATOR Primary Care Provider Encounter Details Date Type Department Care Team (Late st Contact Info) Description 03/16/2024 Abstract [facility] OB [address] [facility] [place] [address] Jasmeet Hubbard DO [address] [place] [address] Dr [place], [facility]11 Social History Tobacco Use Types Packs/Day Years [...] 11/22/2024 10:30 AM EDT Office Visit [facility] OB [address] [place], [place] [address] [place] [address] Kalie Simpson PA [address] [place] [address] Dr [place], [facility]11 12/20/2024 4:00 PM EDT Office Visit [facility] OB [facility] [place] [address] Jasmeet Hubbard, DO [address] [place] [address] [place] [address] documented as of this encounter Visit Diagnoses Not on filedocumented in this encounter Care Teams Smoked Meat Preparer Relationship Specialty Start Date End Date Amanda Samuel NP [facility]5 [facility] [place] [address] PCP - General Family Medicine 11/13/22 documented as of this encounter
--- OUTSIDE RECORDS SUMMARY | 2024-11-17 12:18 | XMS_ITS | Encounter Summary ---
Author Organization [facility] Address [address] [place] [address] Care Team Providers Care Refuse Collector Supervisor Name Role Phone TheaAmanda gregg Leanna COTTON SAMPLER Primary Care Provider Encounter Details Date Type Department Care Team (Late st Contact Info) Description 08/11/2024 Abstract [facility] OB [address] [facility] [place] [address] Lenore Blackwell LPN Social History Tobacco [...] [facility] OB [address] [facility] [place] [address] Kalie Simpson PA [address] [place] [address] 12/20/2024 4:00 PM EDT Office Visit [facility] OB [address] [facility] [place] [address] Jasmeet Hubbard, [address] [facility] [place] [address] documented as of this encounter Visit Diagnoses Not on filedocumented in this encounter Care Teams Refuse Collector Supervisor Relationship Specialty Start Date End Date Amanda Samuel NP [address] [place] [address] [place] [address] PCP - General Family Medicine 11/13/22 documented as of this encounter
--- OUTSIDE RECORDS SUMMARY | 2024-11-17 12:18 | XMS_ITS | Encounter Summary ---
Author Organization [facility] Address [address] [place] [address] Care Team Providers Care Gluing Machine Operator Automatic Name Role Phone TheaAmanda gregg Leanna MEDICAL AFFAIRS DIRECTOR Primary Care Provider Encounter Details Date Type Department Care Team (Late st Contact Info) Description 10/26/2024 Abstract [facility] OB [address] [facility] [address] Lenore Blackwell LPN Social History Tobacco [...] 11/22/2024 10:30 AM EDT Office Visit [facility] OB [address] [place] [address] Kalie Simpson PA [address] [place] [address] 12/20/2024 4:00 PM EDT Office Visit [facility] OB [address] [facility] [place] [address] Jasmeet Hubbard, [address] [facility] [place] [address] documented as of this encounter Visit Diagnoses Not on filedocumented in this encounter Care Teams Gluing Machine Operator Automatic Relationship Specialty Start Date End Date Amanda Samuel NP [address] [place] [address] [place] [address] PCP - General Family Medicine 11/13/22 documented as of this encounter
--- OUTSIDE RECORDS SUMMARY | 2024-11-17 12:18 | XMS_ITS | Encounter Summary ---
Author Organization [facility] Address [address] [place] [address] Care Team Providers Care General Service Officer Name Role Phone Pcp, No SAND CUTTING MACHINE OPERATOR Primary Care Provider Violeta e Indira Bazan MD Primary Care Provider [phone] Pcp, No SAND CUTTING MACHINE OPERATOR Primary Care Provider Unavailabl e Source Comments In the event this information is protected by the Federal Confidentiality of Alcohol and Drug AbusePatient Records regulations: The Federal rules restrict any use of the information to criminally investigate or prosecute any alcohol or drug abuse patient.[facility] Encounter Details Date Type Department Care Team (Late st Contact Info) Description 07/27/2016 Get Medical Advice Orthopedics [address] [place] [address] Fidel Lawson MD [address] [place], [place] [id number] Test Result Question Social History Tobacco Use Types Packs/Day Years Used Date Smoking Tobacco: Never Smokeless Tobacco: Never Alcohol Use Standard Drinks/Week Comments No 0 (1 standard drink = 0.6 oz pur e alcohol) Comments Yes Sex and Gender Information Value Date Recorded [...] on filedocumented in this encounter Care Teams General Service Officer Relationship Specialty Start Date End Date Yaquelin Tucker APRN PCP - General 05/29/16 08/13/16 Indira Bazan MD PCP - General Internal Medicine 08/14/16 05/26/17 Yaquelin Tucker APRN PCP - General 05/27/17 12/26/17 documented as of this encounter
--- OUTSIDE RECORDS SUMMARY | 2024-11-17 12:18 | XMS_ITS | Encounter Summary ---
Author Organization [facility] Address [address] [place], [place] [address] Care Team Providers Care Insole And Outsole Preparer Name Role Phone Pcp, No ORACLE EBS CONSULTANT Primary Care Provider Unavailabl e Indira Bazan MD Primary Care Provider [phone] Pcp, No ORACLE EBS CONSULTANT Primary Care Provider Unavailabl e Source Comments In the event this information is protected by the Federal Confidentiality of Alcohol and Drug AbusePatient Records regulations: The Federal rules restrict any use of the information to criminally investigate or prosecute any alcohol or drug abuse patient.[facility] Encounter Details Date Type Department Care Team (Late st Contact Info) Description 06/12/2016 Patient Msg Orthopaedics [address] [place] [address] Zander Montiel PA-C [address] [place] [address] Scotty Lawson//Juli CCSusi Social History Tobacco Use Types Packs/Day Years [...] on filedocumented in this encounter Care Teams Insole And Outsole Preparer Relationship Specialty Start Date End Date Yaquelin Tucker APRN PCP - General 05/29/16 08/13/16 Indira Bazan MD PCP - General Internal Medicine 08/14/16 05/26/17 Yaquelin Tucker APRN PCP - General 05/27/17 12/26/17 documented as of this encounter
--- OUTSIDE RECORDS SUMMARY | 2024-11-17 12:18 | XMS_ITS | Encounter Summary ---
Author Organization [facility] [employer] Address [id number] [address] [place] [address] Care Team Providers Care Associate Director Data & Analytics Name Role Phone Amanda Samuel PEANUT PICKER-FIELD TECHNICIAN Primary Care Provid er Encounter Details Date Type Department Care Team (Late st Contact Info) Description 05/26/2024 Orders Only [facility] [address] [place] [address] Amanda Hernandez CMA Palpitations Social History Tobacco Use Types Packs/Day [...] Procedure Name Priority Date/Time Associated Diagnosis Comments HOLTER MONITOR 24-48 HOUR Routine 05/19/2024 Palpitations documented in this encounter Results * Holter monitor 24-48 hour (05/19/2024) Anatomical Region Laterality Modality Chest N/A Other 05/19/2024 us Alessia Fregoso MD CV CARDIAC SERVICES ORDERABL ES Final Result documented in this encounter Visit Diagnoses Diagnosis Palpitations documented in this encounter Care Teams Associate Director Data & Analytics Relationship Specialty Start Date End Date Amanda Samuel APRN-NP [address] [place] [address] PCP - General Nurse Practitioner 05/13/24 documented as of this encounter
--- OUTSIDE RECORDS SUMMARY | 2024-11-17 12:18 | XMS_ITS | Encounter Summary ---
Author Organization [facility] Address [address] [place], [place] [id number] Care Team Providers Care Grinding Wheel Facer Name Role Phone Pcp, No LUNCH COUNTER MANAGER Primary Care Provider Unavailabl e Pcp, No LUNCH COUNTER MANAGER Primary Care Provider Unavailabl e Indira Bazan MD Primary Care Provider [phone] Pcp, No LUNCH COUNTER MANAGER Primary Care Provider Unavailabl e Source Comments In the event this information is protected by the Federal Confidentiality of Alcohol and Drug AbusePatient Records regulations: The Federal rules restrict any use of the information to criminally investigate or prosecute any alcohol or drug abuse patient.[facility] Encounter Details Date Type Department Care Team (Late st Contact Info) Description 04/17/2016 Get Medical Advice Family Medicine [facility] [place] [address] Shad Ortiz DO [address] [facility] [place] [address] RE: Test Result Question Social History Tobacco Use [...] on filedocumented in this encounter Care Teams Grinding Wheel Facer Relationship Specialty Start Date End Date Yaquelin Tucker APRN PCP - General 11/27/15 05/28/16 Yaquelin Tucker APRN PCP - General 05/29/16 08/13/16 Indira Bazan MD PCP - General Internal Medicine 08/14/16 05/26/17 Yaquelin Tucker APRN PCP - General 05/27/17 12/26/17 documented as of this encounter
--- OUTSIDE RECORDS SUMMARY | 2024-11-17 12:18 | XMS_ITS | Encounter Summary ---
Author Organization [facility] Address [address] [facility] [place] [address] Care Team Providers Care Sound Truck Operator Name Role Phone Rach Hernandezfer Leanna CHRISTMAS TREE CONTRACTOR Primary Care Provider Encounter Details Date Type Department Care Team (Late st Contact Info) Description 07/07/2023 Clinisync Result Encounter [facility] External Department Unsolicited Kalie Parson, PA [address] [place] [address] Dr [place], [facility]11 Social History Tobacco Use Types Packs/Day [...] EDT Office Visit [facility] [address] [facility] [place] [address] Kalie Parson PA [address] [place], [facility]11 12/20/2024 4:00 PM EDT Office Visit [facility] BCP OB [address] [place] [address] Jasmeet Hubbard DO [address] [id number] documented as of this encounter Procedures Procedure Name Priority Date/Time Associated Diagnosis Comments US PELVIS W/ TRANSVAGINAL 07/07/2023 3:33 PM EDT documented in this encounter Results * US PELVIS W/ TRANSVAGINAL (07/07/2023 3:33 PM EDT) Anatomical Region Laterality Modality Other 07/07/2023 3:33 PM EDT Narrative 07/07/2023 3:36 PM EDT [address] [address] Ultrasound Report Signed Patient: SAIMA GONZALES MR#: [id number] : 1995 Acct:[id number] Age/Sex: 28 / F ADM Date: 07/07/23 Loc: US Attending Dr: Kalie Parson Ordering Physician: Kalie Parson Date of Service: 07/07/23 Procedure(s): US pelvis w/ transvaginal Accession Number(s): [id number] cc: Kalie Parson; VENU HERNANDEZ [address] [address] Patient Name: SAIMA GONZALES MRN: [id number] date: 1995 Sex: F Assigned Patient Location: US Current Patient Location: US Accession/Order Number: [id number] Exam Date: 07/07/2023 14:45 Report Date: 07/07/2023 15:33 At the request of: KALIE PARSON Procedure: US pelvis w/ transvaginal EXAMINATION: US pelvis w/ transvaginal HISTORY: pelvic pain in female R10.2 COMPARISON: No relevant comparison available. FINDINGS: Transabdominal and transvaginal images The uterus is normal in size, contour and echotexture measuring 8.6 x 4.6 x 5.8 cm, anteverted. Endometrium measures 5 mm, normal. The right ovary is normal measuring 2.1 x 3.6 x 2.8 cm. Normal color Doppler flow. Multiple subcentimeter areas of anechoic echogenicity, follicles The left ovary measures 2.2 x 1.3 x 1.9 cm. Normal color Doppler flow No free fluid US/US pelvis w/ transvaginal IMPRESSION: No acute abnormality Electronically authenticated by: CARMEN HERZOG Date: 07/07/2023 15:33 Dictated By: Carmen Herzog M.D. Signed By: 07/07/23 1536 DD/ 1533 TD/TT: Umbrella Tipper: Procedure Note Radiology, Radiologist, MD - 07/07/2023 [place] [id number] Ultrasound Report Signed Patient: SAIMA GONZALES LMR#: [id number] : 1995Acct:[id number] Age/Sex: 28 / FADM Date: 07/07/23 Loc: US Attending Dr: Kalie Parson Ordering Physician: Kalie Parson Date of Service: 07/07/23 Procedure(s): US pelvis w/ transvaginal Accession Number(s): [id number] cc: Kalie Parson; VENU HERNANDEZ [address] [address] Patient Name: SAIMA GONZALES MRN: [id number] date: 1995 Sex: F Assigned Patient Location: US Current Patient Location: US Accession/Order Number: [id number] Exam Date: 07/07/2023 14:45 Report Date: 07/07/2023 15:33 At the request of: KALIE PARSON Procedure: US pelvis w/ transvaginal EXAMINATION: US pelvis w/ transvaginal HISTORY: pelvic pain in female R10.2 COMPARISON: No relevant comparison available. FINDINGS: Transabdominal and transvaginal images The uterus is normal in size, contour and echotexture measuring 8.6 x 4.6x 5.8 cm, anteverted. Endometrium measures 5 mm, normal. The right ovary is normal measuring 2.1 x 3.6 x 2.8 cm. Normal colorDoppler flow. Multiple subcentimeter areas of anechoic echogenicity, follicles The left ovary measures 2.2 x 1.3 x 1.9 cm. Normal color Doppler flow No free fluid US/US pelvis w/ transvaginal IMPRESSION: No acute abnormality Electronically authenticated by: CARMEN HERZOG Date: 07/07/2023 15:33 Dictated By: Carmen Herzog M.D. Signed By:07/07/23 1536 DD/ 1533 TD/TT: Umbrella Tipper: us Kalie [facility] Final Result documented in this encounter Visit Diagnoses Not on filedocumented in this encounter Care Teams Sound Truck Operator Relationship Specialty Start Date End Date Venu Hernandez NP [address] [place] [address] PCP - General Family Medicine 11/13/22 documented as of this encounter
--- OUTSIDE RECORDS SUMMARY | 2024-11-17 12:18 | XMS_ITS | Clinical Summary ---
Author Organization [employer] Address [id number] [address] [place] [address] Care Team Providers Care Hot Dip Galvanizer Name Role Phone Amanda Samuel APRN-SUSANA Primary Care Provid er Allergies No known active allergies Medications POTASSIUM CITRATE ORAL Take 99 mg by mouth in the morning. Active propranoloL (INDERAL) 40 mg tablet Take 1 tablet (40 mg total) by mouth in the morning. Active citalopram (CeleXA) 20 mg tablet Take 1 tablet (20 mg total) by mouth in the morning. Active Active Problems Problem Noted Date Diagnosed Date Sinus tachycardia Family History Medical History Relation Name Comments No Known Problems Father No Known Problems Mother Relation Name Status Comments Father Alive Mother Alive Social History Tobacco Use Types Packs/Day Years [...] on file Sexual Orientation Not on file Last Filed Vital Signs Vital Sign Reading Time Taken Comments Blood Pressure 108/82 05/13/2024 8:27 AM EST Pulse 81 05/13/2024 8:27 AM EST Temperature 36.7 C (98.1 F) 09/30/2021 5:42 PM EDT Respiratory Rate 18 09/30/2021 5:42 PM EDT Oxygen Saturation 98% 05/13/2024 8:27 AM EST Inhaled Oxygen Concentration - - Weight 109.6 kg (241 lb 9.6 oz) 05/13/2024 8:27 AM EST Height 172.7 cm (5' 8 ) 05/13/2024 8:27 AM EST Body Mass Index 36.74 05/13/2024 8:27 AM EST Plan of Treatment Health Maintenance Due Date Last Done Comments Depression Screening 2009 Adult BMI Follow Up Plan 2015 Pap Smear 2018 COVID-19 Vaccine (2023- 5 season) 2023 09/28/2020 Influenza Vaccine 12/27/2024 01/28/2020, 02/27/2010 Adult BMI Screening 05/13/2025 05/13/2024 Tobacco Screening 05/13/2025 05/13/2024 DTaP,Tdap and Td Vaccines (9 - Td or Tdap) 08/16/2026 08/16/2016, 08/16/2016, 04/12/2008, Additional history exists Medical Devices Not on file Care Teams Hot Dip Galvanizer Relationship Specialty Start Date End Date Amanda Samuel APRN-NP [address] [place] [address] PCP - General Nurse Practitioner 05/13/24
--- OUTSIDE RECORDS SUMMARY | 2024-11-17 12:18 | XMS_ITS | Encounter Summary ---
Author Organization [facility] Address [address] [place] [address] Care Team Providers Care Quality Lead Name Role Phone Rach Samuelfer Leanna MASTIC FLOOR LAYER Primary Care Provider Encounter Details Date Type Department Care Team (Late st Contact Info) Description 10/01/2024 Abstract [facility] OB [address] [place] [address] [place] [address] Jasmeet Hubbard DO [address] [place] [address] Dr [place], [facility]11 Social History Tobacco Use Types Packs/Day Years [...] 11/22/2024 10:30 AM EDT Office Visit [facility] OB [address] [place], [place] [address] [place] [address] Kalie Simpson PA [address] [place] [address] Dr [place], [facility]11 12/20/2024 4:00 PM EDT Office Visit [facility] OB [address] [place], [place] [address] [place] [address] Jasmeet Hubbard, DO [address] [place] [address] [place] [address] documented as of this encounter Visit Diagnoses Not on filedocumented in this encounter Care Teams Quality Lead Relationship Specialty Start Date End Date Amanda Samuel NP [facility]5 [facility] [place] [address] PCP - General Family Medicine 11/13/22 documented as of this encounter
--- OUTSIDE RECORDS SUMMARY | 2024-11-17 12:18 | XMS_ITS | Encounter Summary ---
Author Organization [facility] Address [address] [place] [address] Care Team Providers Care Ware Server Name Role Phone TheaAmanda gregg Leanna PRODUCTION EXPERT Primary Care Provider Encounter Details Date Type Department Care Team (Late st Contact Info) Description 07/27/2024 Abstract [facility] OB [address] [facility] [place] [address] Lenore Blackwell LPN Social History Tobacco [...] 11/22/2024 10:30 AM EDT Office Visit [facility] OB [address] [place] [address] Kalie Simpson PA [address] [place] [address] 12/20/2024 4:00 PM EDT Office Visit [facility] OB [address] [facility] [place] [address] Jasmeet Hubbard, [address] [facility] [place] [address] documented as of this encounter Visit Diagnoses Not on filedocumented in this encounter Care Teams Ware Server Relationship Specialty Start Date End Date Amanda Samuel NP [address] [place] [address] [place] [address] PCP - General Family Medicine 11/13/22 documented as of this encounter
--- OUTSIDE RECORDS SUMMARY | 2024-11-17 12:18 | XMS_ITS | Clinical Summary ---
Author Organization [facility] Address [address] [place] [address] Care Team Providers Care Oxide Furnace Tender Name Role Phone Amanda Samuel NP Primary Care Provider Allergies No known active allergies Medications citalopram (CeleXA) 20 MG tabletIndication s:Anxiety, generalized Take 1 tablet (20 mg) by mouth Daily 30 tablet 5 03/03/2024 Active Potassium 99 MG tablet 03/16/2024 Active Active Problems Problem Noted Date Diagnosed Date Encounter for weight management 03/11/2024 Well adult exam 03/11/2024 Pelvic pain in female 03/11/2024 Anovular menstruation 01/27/2023 Anovulation 01/27/2023 Missed period 01/27/2023 Cough 01/27/2023 Viral illness 01/27/2023 Muscle weakness 09/09/2016 Decreased ROM of lower extremity 09/09/2016 Right knee pain 09/09/2016 Missed ([facility]) 07/09/2016 Confirm cardiac activity using ultrasound ([facility]) 07/08/2016 Patellofemoral stress syndrome of right knee Encounters Date Type Department Care Team Description 10/26/[address] [facility] OB [address] [place] [address] Lenore Blackwell LPN 10/26/[address] [facility] OB [address] [place] [address] Kalie Simpson PA Encounter for long-term (current) use of medications 10/01/2024 Abstract [facility] [address] [place] [address] Jasmeet Hubbard DO 09/07/2024 Abstract [facility] [address] [place] [address] Lenore Blackwell LPN 09/07/2024 Telephone [facility] [address] [place] [address] Kalie Simpson PA from Last 3 Months Family History Medical History Relation Name Comments No Known Problems Brother No Known Problems Daughter Breast cancer Maternal Grandmother Grandmother Ovarian cancer Maternal Grandmother Grandmother No Known Problems Sister Relation Name Status Comments Brother Daughter Alive Father Alive Maternal Grandmother Grandmother Mother Alive Sister Social History Tobacco Use Types Packs/Day Years Used Date Smoking Tobacco: Never Smokeless Tobacco: Never Tobacco Cessation:Counseling Given: Not Answered Alcohol Use Standard Drinks/Week Comments Never 0 (1 standard drink = 0.6 oz pur e alcohol) Comments No Sex and Gender Information Value Date Recorded Sex Assigned at Female 11/06/2022 8:56 AM EDT Legal Sex Female 8:14 PM EDT Gender Identity Female 11/06/2022 8:56 AM EDT Sexual Orientation Not on file Last Filed Vital Signs Vital Sign Reading Time Taken Comments Blood Pressure 120/78 07/26/2024 9:36 AM EDT Pulse - - Temperature - - Respiratory Rate - - Oxygen Saturation - - Inhaled Oxygen Concentration - - Weight 111 kg (244 lb 6.4 oz) 07/26/2024 9:36 AM EDT Height 175.3 cm (5' 9 ) 03/11/2024 3:51 PM EST Body Mass Index 36.09 03/11/2024 3:51 PM EST Plan of Treatment Upcoming Encounters Date Type Department Care Team (Late st Contact Info) Description 11/22/2024 10:30 AM EDT Office Visit [facility] [address] [place] [address] Kalie Simpson PA [address] [place] [address] [place], [place] [id number] 12/20/2024 4:00 PM EDT Office Visit [facility] BCP OB [address] [facility] [place] [place] [address] Jasmeet Hubbard DO [address] [facility] [place] [address] Health Maintenance Due Date Last Done Comments Influenza Vaccine (#1) 2024 01/28/2020, 2009 Insurance [employer] Care Teams Oxide Furnace Tender Relationship Specialty Start Date End Date Amanda Samuel NP [facility] [facility] [place] [address] PCP - General Family Medicine 11/13/22
[2024-11-17 13:30] LABS: Alanine Aminotransferase 35 U/L (14-59); Albumin Globulin Ratio 1.0; Albumin Level 3.5 g/dL (3.4-5.0); Alkaline Phosphatase 75 U/L (46-116); Anion Gap 11.0; Aspartate Amino Transferase 18 U/L (15-37); Blood Urea Nitrogen 11.0 mg/dL (7.0-18.0); Calcium 9.2 mg/dL (8.5-10.1); Carbon Dioxide 28.9 mmol/L (21.0-32.0); Chloride 105 mmol/L (98-107); Estimated GFR (African America >60 (>=60 mL/min/1.73m^2); Estimated GFR (Non-African Ame >60 (>=60 mL/min/1.73m^2); Globulin 3.5 g/dL; Glucose 80 mg/dL (74-106); Potassium 3.9 mmol/L (3.5-5.1); Sodium 141 mmol/L (136-145); Total Protein 7.0 g/dL (6.4-8.2)
== END 2024-11-17 12:14 | disposition home or self-care (01) ==
LOC: LAB 12:16
PROVIDERS: PCP Nurse Practitioner Family; Visit Provider Physician Assistant
DX: Z79.899 Other long term (current) drug therapy (principal)
CPT/HCPCS: 36415; 80053

== ENCOUNTER 2024-12-20 20:16 | Outpatient (REF) | payer OTHER, SELFPAY ==
--- OUTSIDE RECORDS SUMMARY | 2015-10-03 06:53 | XMS_ITS | Continuity of Care Document ---
Author Organization [facility] Address [address] [place] [address] Phone Care Team Providers Care First Line Production Supervisor Name Role Phone Lloyd STEPHON DELGADO, Lenore Unavailable Unavaila ble Allergies, Adverse Reactions, Alerts Substance Reaction Status Criticality No Known Allergies Active No Inform ation Medications Medication Instructions Dosage Effective Dates (start - stop) Status Comments Estrace 2 mg tablet take 1 tablet by ora l route every day 2 MG - Active Nexplanon 68 mg subdermal implant - Active Problems Condition Type Effective Dates (start - stop) Clini nabila Status Comments No Known Problems Procedures Procedure Date OFFICE/OUTPATIENT VISIT, EST OFFICE/OUTPATIENT VISIT, EST Condoms OFFICE/OUTPATIENT VISIT, EST [facility] ROCEPHIN 250 MG (PER DOSE) 16 PREV VISIT, EST, AGE 18-39 Annual gynecological examina PREV VISIT, EST, AGE 12-17 No Charge INSERT DRUG IMPLANT DEVICE Nexplanon 68mg Implant [facility] ROCEPHIN 250 MG (PER DOSE) 15 URINE TEST PREV VISIT, NEW, AGE 12-17 NEW FP MEDICAID URINE TEST Advance Directives Directive Yes / No Effective Date File Name No Information Encounters Encounter Description Practice Location Reason(s) For Visit Diagnoses Date Provider Providers Copied on Encounter [facility], [address] [place] [address], [id number] , tel: [phone] [facility] No Information Sep- 6 [facility] Lenore. [address] [place] [address], [id number] , [place]. tel: [phone] OFFICE/OUTPA TIENT VISIT, EST [facility], [address] [place] [address], [id number] , [place] tel: [phone] [facility] Test of Reinfection (chief complaint) Irregular periodsGonococca l cervicitis 6 [facility] Len[place]. [address] [place] [address], [id number] , [place]. tel: [phone] OFFICE/OUTPA TIENT VISIT, EST [facility], [address] [place], [place], [id number] , [place] tel: [phone] [facility] Medication Administration (chief complaint) Gonococcal infection of lower genitourinary tract, unspecified 6 [facility] Len[place]. [address] [place] [address], [id number] , [place]. tel: [phone] PREV VISIT, EST, AGE 18-39 [facility], [address] [place] [address], [id number] , [place] tel: [phone] [facility] Update (chief complaint)annua l exam (chief complaint)contr aception (chief complaint) Encounter for sexually transmitted disease screeningOther problems related to lifestyleEncount er for general obgyn hospitalist physician exam with abnormal findingsIrregula r periods 6 [facility] Len[place]. [address] [place] [address], [id number] , [place]. tel: [phone] PREV VISIT, EST, AGE 12-17 [facility], [address] [place] [address], [id number] , [place] tel: [phone] [facility] physical (chief complaint) General medical exam for sports competitionPre employment health screening 0- 5 León Bauer. [address] [place], [place], [id number] , [place]. tel: [phone] [facility], [address] [place] [address], [id number] , [place] tel: [phone] [facility] sports physical (chief complaint) No Information 5 León Bauer. [address] [place], [place], [id number] , [place]. tel: [phone] [facility], [address] [place] [address], [id number] , [place] tel: [phone] [facility] nexplanon (chief complaint)Rocep hin (chief complaint) Encounter for insertion of implantable subdermal contraceptiveGon orrhea 3 5 Lloyd [facility] [place]. [address] [place] [address], [id number] , [place]. tel: [phone] PREV VISIT, NEW, AGE 12-17 [facility], [address] [place] [address], [id number] , [place] tel: [phone] [facility] annual exam (chief complaint) Annual pelvic exam 0 5 [facility] Len[place]. [address] [place] [address], [id number] , [place]. tel: [phone] Family History Family Member Type Diagnosis Age At Onset Mother Problem (finding) Alive and well Father Problem (finding) Alive and well Maternal grandmother Problem (finding) malignant neoplasm of lung (Cause Of ) Brother Problem (finding) Alive and well Paternal grandfather Problem (finding) Maternal grandmother Problem (finding) Sister Problem (finding) Alive and well Paternal grandmother Problem (finding) Brother Problem (finding) attention defi cit hyperactivity disorder Maternal grandfather Problem (finding) Payers Payer name Insurance type Covered libertarian ID Authorchristinea tiallan(s) Medicaid [facility] [id number] Social History Type Description Quantity Date Captured Comments Alcohol Use Details Unknown Caffeine Use Details Unknown Tobacco Use Status No Information Smoking Status No Information Sex Female Sexual Orientation Straight or heterosexual Gender Identity Female Chief Complaint And Reason For Visit No Information Reason For Referral Reason For Referral No Information History Of Present Illness Encounter Date Complaint History Of Prese nt Illness Test of Reinfection Client prese nts today for a test of reinfection, + GC 07/24/15. Gardasil series completed 11/09/08. Reports that the medicine the doctor gave me isn't working. (Estrace) Denies any further problems/concerns at this time. Cultures obtained. Condoms provided. JENS Aleman Test of Reinfection (comments) S tates the estrace worked for awhile, but now is back to having BTB. Will try second round of estrace then decide if she should change BCM Medication Administration Diane kraft presents for treatment of Gonorrhea. Educatedon partner notification, testing, and treatment, as well as no unprotected sex until a negative test of cure. --Conrad Elliott R.N. annual exam Currently pregna nt: no. The patient states she uses condoms, male and Nexplanon for control. Her menses is irregular with spotting flow with a frequency of irregular. Negative for: breast self exam. The patient does not use tobacco. She does not drink alcohol. Additional information: JENS HONEYCUTT. Update Client presents today for an update/CURT. + GC/ CT tested positive 05/17/14. Concerned about irregular menses, education provided. Gardasil series completed 01/10/09. Denies any further problems/concerns at this time. Cultures obtained. JENS Aleman contraception Currently using Nexplanon, inserted 05/31/14. Reports having 3-4 menses month to none at all. JENS HONEYCUTT contraception (comments) C/O lar ge amounts of BTB desires to keep the NExplanon if BTB can resolve physical Client here with mother for sports physical & work permit. Carmine Bernard sports physical Patient here tod ay with mother for sports physical, track. When attempting to call patient back to room, mother had already left. Explained to patient that a parent or legal guardian needs to be present. Patient contacted her mother back and returned but mother did not want to wait any longer. Mother would like to reschedule. -JENS LU. nexplanon Rocephin annual exam Currently pregna nt: no. Patient is not contemplating . The patient states she uses condoms, male for control. Last LMP was 04/26/2014. Her menses is regular. Additional information: Est. care. Sexually active. Uses condoms sometimes. Cultures today. Desires Nexplanon. Resently had unprotected sex. PT-. Carmine Bernard . Functional Status Date Functional Assessmen t No Information Instructions Date Instruction Additional Infor maxine Discussed irregular menses associated with Nexplanon. Will give Estrace 2mg 1 po QD for 30 days with 1 refill. If she does not adjust to Nexplanon after estrace recommend change in BC method. Patient states understanding Related to Irregular periods Cervical cultures se nt to lab. Patient to call in 1 week for results Related to Encounter for sexually transmitted disease screening Encouraged monthly B SE. Recommend calcium 1000mg QD. Encouraged good dietary intake and exercise. Laboratory specimens sent to lab. Patient to call in 2 weeks if desires results. Related to Encounter for general obgyn hospitalist physician exam with abnormal findings Patient to receive R ocephin 250mg IM today. States she informed partner he need treatment, but states they are no longer together. RTC 3 months for CURT. States she took her zithromax without difficulty Related to Gonorrhea Encouraged to monito r Nexplanon insertion site for s/s of infection. RTC 1 month for follow up visit. Encouraged condoms to prevent STDs. May take motrin 800mg po Q 8hr PRN discomfort. Patient states understanding Related to Encounter for insertion of implantable subdermal contraceptive Encouraged monthly B SE. Recommend calcium 1000mg QD. Encouraged good dietary intake and exercise. Cervical cultures sent to lab. Patient to call in 2 weeks if desires results. Discussed gardasil. Patient is unsure if she received vaccine from PCP a few years ago. will call PCP and ask. Desires Nexplanon. Will schedule with her next Menses if possible Related to Annual pelvic exam Assessments Type Assessment Date No Information Patient Care Teams Name Effective Dates (start - stop) Status Members No Information
--- OUTSIDE RECORDS SUMMARY | 2024-12-20 16:00 | XMS_ITS | Encounter Summary ---
Author Organization [facility] Address [address] [place] [address] Care Team Providers Care Cutter Inspector Name Role Phone Amanda Samuel NP Primary Care Provider Reason for Visit * Reason Comments Well Women Visit Encounter Details Date Type Department Care Team ([facility] Contact Info) Description 12/20/2024 4:00 PM EDT Office Visit [facility] [place] [facility] [address] [facility] [place] [address] Jasmeet Hubbard DO [address] [facility] [address] [place], [place] [id number] Well woman exam with routine gynecological exam Social History Tobacco Use Types Packs/Day Years [...] on file documented as of this encounter Last Filed Vital Signs Vital Sign Reading Time Taken Comments Blood Pressure 118/78 12/20/2024 4:27 PM EDT Pulse - - Temperature - - Respiratory Rate - - Oxygen Saturation - - Inhaled Oxygen Concentration - - Weight 111 kg (243 lb 12.8 oz) 12/20/2024 4:27 P M EDT Height - - Body Mass Index 36 03/11/2024 3:51 PM EST documented in this encounter Plan of Treatment Upcoming Encounters Date Type Department Care Team (Late st Contact Info) Description 12/27/2025 11:00 AM EDT Procedure Visit [facility] [address] [facility] [place] [address] Jasmeet Hubbard DO [address] [place] [address] Scheduled Orders Name Type Priority Associated Diagnoses Orde r Schedule Pap Smear Pathology and Cytology Routine Well woman exam with routine gynecological exam Ordered: 12/20/2024 documented as of this encounter Visit Diagnoses Diagnosis Well woman exam with routine gynecological exam Routine gynecological examination documented in this encounter Care Teams Cutter Inspector Relationship Specialty Start Date End Date Amanda Samuel NP [facility]5 [facility] [place] [address] PCP - General Family Medicine 11/13/22 documented as of this encounter
--- OUTSIDE RECORDS SUMMARY | 2024-12-20 20:20 | XMS_ITS | Encounter Summary ---
Author Organization [facility] Address [address] [place] [address] Care Team Providers Care Plant Maintenance Technician Name Role Phone Rach Hernandezfer Leanna MULE TENDER Primary Care Provider Encounter Details Date Type Department Care Team (Late st Contact Info) Description 03/19/2024 Clinisync Result Encounter NOMS External Department Unsolicited Kalie Parson PA [address] [facility] [address] [place], [facility] Social History Tobacco Use Types Packs/Day [...] 11:00 AM EDT Procedure Visit [facility] [address] [facility] [place] [address] Jasmeet Hubbard DO [address] [facility] [address] [place], [facility] documented as of this encounter Procedures Procedure Name Priority Date/Time Associated Diagnosis Comments US PELVIS W/ TRANSVAGINAL 03/19/2024 5:28 AM EST documented in this encounter Results * US PELVIS W/ TRANSVAGINAL (03/19/2024 5:28 AM EST) Anatomical Region Laterality Modality Other 03/19/2024 5:28 AM EST Narrative 03/19/2024 5:30 AM EST [address] [address] Ultrasound Report Signed Patient: SAIMA GONZALES MR#: [id number] : 1995 Acct:[id number] Age/Sex: 28 / F ADM Date: 03/17/24 Loc: US Attending Dr: Kalie Parson Ordering Physician: Kalie Parson Date of Service: 03/17/24 Procedure(s): US pelvis w/ transvaginal Accession Number(s): [id number] cc: Kalie Parson; VENU HERNANDEZ [place] [id number] Patient Name: SAIMA GONZALES MRN: [id number] date: 1995 Sex: F Assigned Patient Location: US Current Patient Location: Accession/Order Number: [id number] Exam Date: 03/17/2024 19:29 Report Date: 03/19/2024 [...] M.D. Signed By: 03/19/24529 DD/ 7 TD/TT: Sales Representative [employer]: Procedure Note Radiology, Radiologist, MD - 03/19/2024 [place] [address] Ultrasound Report Signed Patient: SAIMA GONZALES LMR#: [id number] : 1995Acct:[id number] Age/Sex: 28 / FADM Date: 03/17/24 Loc: US Attending Dr: Kalie Parson Ordering Physician: Kalie Parson Date of Service: 03/17/24 Procedure(s): US pelvis w/ transvaginal Accession Number(s): [id number] cc: Kalie Parson; VENU HERNANDEZ [place] [id number] Patient Name: SAIMA GONZALES MRN: [id number] date: 1995 Sex: F Assigned Patient Location: US Current Patient Location: Accession/Order Number: [id number] Exam Date: 03/17/2024 19:29 Report Date: 03/19/2024 [...] Zambrano M.D. Signed By:03/19/24529 DD/ 7 TD/TT: Sales Representative [employer]: us Kalie [facility] Final Result documented in this encounter Visit Diagnoses Not on filedocumented in this encounter Care Teams Plant Maintenance Technician Relationship Specialty Start Date End Date Venu Hernandez NP [address] [place], [place] [id number] PCP - General Family Medicine 11/13/22 documented as of this encounter
--- OUTSIDE RECORDS SUMMARY | 2024-12-20 20:20 | XMS_ITS | Encounter Summary ---
Author Organization [facility] Address [address] [place] [address] Care Team Providers Care Odd Bundle Worker Name Role Phone Amanda Samuel Leanna STEMHOLE BORER Primary Care Provider Encounter Details Date Type Department Care Team (Late Contact Info) Description 12/16/2023 Orders Only [facility] [address] [facility] [place] [address] Katya Driscoll MA [address] [facility] [place] [address] Social History Tobacco Use Types Packs/Day Years [...] Encounters Date Type Department Care Team (Late Contact Info) Description 12/27/2025 11:00 AM EDT Procedure Visit [facility] [place] [facility] [address] [facility] [place] [address] Jasmete Hubbard DO [address] [facility] [address] [place], [place] [address] documented as of this encounter Procedures Procedure Name Priority Date/Time Associated Diagnosis Comments PAP SMEAR Routine 12/09/2023 12:00 AM EDT documented in this encounter Results * Pap Smear (12/09/2023 12:00 AM EDT) Swab Cervical swab / Unknown us Jasmeet Hubbard DO LAB CYTOLOGY ORDERABLES Final Re sult EXTERNAL LAB documented in this encounter Visit Diagnoses Not on filedocumented in this encounter Care Teams Odd Bundle Worker Relationship Specialty Start Date End Date Amanda Samuel NP [address] [place] [address] PCP - General Family Medicine 11/13/22 documented as of this encounter
--- OUTSIDE RECORDS SUMMARY | 2024-12-20 20:20 | XMS_ITS | Encounter Summary ---
Author Organization [facility] Address [address] [place], [place] [address] Care Team Providers Care Cyber Security Analyst Name Role Phone Pcp, No Primary Care Provider Unavailabl e Pcp, No Primary Care Provider Unavailabl e Indira Bazan MD Primary Care Provider [phone] Pcp, No Primary Care Provider Unavailabl e Source Comments In the event this information is protected by the Federal Confidentiality of Alcohol and Drug AbusePatient Records regulations: The Federal rules restrict any use of the information to criminally investigate or prosecute any alcohol or drug abuse patient.[facility] Encounter Details Date Type Department Care Team (Late st Contact Info) Description 04/17/2016 Get Medical Advice Family Medicine [facility] [place] [address] Shad Ortiz [address] [place], [place] [id number] RE: Test Result Question Social History Tobacco [...] on filedocumented in this encounter Care Teams Cyber Security Analyst Relationship Specialty Start Date End Date Pcp, No PCP - General 11/27/15 05/28/16 Pcp, No PCP - General 05/29/16 08/13/16 Indira Bazan MD PCP - General Internal Medicine 08/14/16 05/26/17 Pcp, No PCP - General 05/27/17 12/26/17 documented as of this encounter
--- OUTSIDE RECORDS SUMMARY | 2024-12-20 20:20 | XMS_ITS | Encounter Summary ---
[facility] Address [id number] [address] [place] [address] Care Team Providers Care Proc Tech Name Role Phone Amanda Samuel SAS DEVELOPER-MBA INTERN Primary Care Provid er Encounter Details Date Type Department Care Team (Late st Contact Info) Description 05/26/2024 Orders Only [facility] [address] [place] [address] Amanda Hernandez CMA Palpitations Social [...] Palpitations documented in this encounter Care Teams Proc Tech Relationship Specialty Start Date End Date Amanda Samuel APRN-NP [address] [place] [address] PCP - General Nurse Practitioner 05/13/24 documented as of this encounter
--- OUTSIDE RECORDS SUMMARY | 2024-12-20 20:20 | XMS_ITS | Encounter Summary ---
Author Organization [facility] Address [address] [place] [address] Care Team Providers Care Vortex Operator Name Role Phone Amanda Samuel INTERN RETAIL Primary Care Provider Encounter Details Date Type Department Care Team (Late Contact Info) Description 07/16/2024 Abstract [facility] [address] [place] [address] [place] [address] Jasmeet Hubbard DO [facility] [address], [place] [address] Social History Tobacco Use Types Packs/Day Years [...] Description 12/27/2025 11:00 AM EDT Procedure Visit [facility] [address] [place], [place] [address] [address] Jasmeet Hubbard DO [address], [place] [address] documented as of this encounter Visit Diagnoses Not on filedocumented in this encounter Care Teams Vortex Operator Relationship Specialty Start Date End Date Amanda Samuel NP [address] [place] [address] PCP - General Family Medicine 11/13/22 documented as of this encounter
--- OUTSIDE RECORDS SUMMARY | 2024-12-20 20:20 | XMS_ITS | Encounter Summary ---
Author Organization [facility] Address [address] [place] [address] Care Team Providers Care Production Stage Manager Name Role Phone Amanda Samuel [employer] Primary Care Provider Encounter Details Date Type Department Care Team (Late Contact Info) Description 12/20/2024 Bamboo flowsheet [facility] [address] [place] [address] [place] [address] Jasmeet Hubbard DO [address], [place] [address] Social History Tobacco Use Types Packs/Day Years [...] EDT Procedure Visit [facility] [address] [place] [address] Jasmeet Hubbard DO [address] [place] [address] documented as of this encounter Visit Diagnoses Not on filedocumented in this encounter Care Teams Production Stage Manager Relationship Specialty Start Date End Date Amanda Samuel, SUSANA [address] [facility] [place] [address] PCP - General Family Medicine 11/13/22 documented as of this encounter
--- OUTSIDE RECORDS SUMMARY | 2024-12-20 20:20 | XMS_ITS | Clinical Summary ---
Author Organization [facility] tem Address [id number] [address] [place] [address] Care Team Providers Care Broomcorn Grader Name Role Phone Amanda Samuel APRN-SUSANA Primary [...] Medical Devices Not on file Care Teams Broomcorn Grader Relationship Specialty Start Date End Date Amanda Samuel APRN-NP [address] [place] [address] PCP - General Nurse Practitioner 05/13/24
--- OUTSIDE RECORDS SUMMARY | 2024-12-20 20:20 | XMS_ITS | Encounter Summary ---
Author Organization [facility] Address [address] [place] [address] Care Team Providers Care Scaffold Builder Name Role Phone Amanda Samuel PIPELINES LABORER Primary Care Provider Encounter Details Date Type Department Care Team (Late Contact Info) Description 03/16/2024 Abstract [facility] [address] [place] [address] [place] [address] Jasmeet Hubbard DO [facility] [address], [place] [address] Social History Tobacco Use Types Packs/Day Years [...] 11:00 AM EDT Procedure Visit [facility] [address] [place], [place] [address] [address] Jasmeet Hubbard DO [address], [place] [address] documented as of this encounter Visit Diagnoses Not on filedocumented in this encounter Care Teams Scaffold Builder Relationship Specialty Start Date End Date Amanda Samuel NP [address] [facility] [place] [address] PCP - General Family Medicine 11/13/22 documented as of this encounter
--- OUTSIDE RECORDS SUMMARY | 2024-12-20 20:20 | XMS_ITS | Encounter Summary ---
Author Organization [facility] Address [address] [place], [place] [id number] Care Team Providers Care Apprenticeship Consultant Name Role Phone Indira Bazan MD Primary Care Provider [phone] Pcp, No Primary Care Provider Unavailabl e Source Comments In the event this information is protected by the Federal Confidentiality of Alcohol and Drug AbusePatient Records regulations: The Federal rules restrict any use of the information to criminally investigate or prosecute any alcohol or drug abuse patient.[facility] Encounter Details Date Type Department Care Team (Late st Contact Info) Description 10/07/2016 Get Medical Advice [facility] [address] [place] [address] Adalberto Mason MD [address] [place] [id number] RE: Visit Follow Up Question Social [...] on filedocumented in this encounter Care Teams Apprenticeship Consultant Relationship Specialty Start Date End Date Indira Bazan MD PCP - General Internal Medicine 08/14/16 05/26/17 Pcp, No PCP - General 05/27/17 12/26/17 documented as of this encounter
--- OUTSIDE RECORDS SUMMARY | 2024-12-20 20:20 | XMS_ITS | Encounter Summary ---
Author Organization [facility] Address [address] [place], [place] [id number] Care Team Providers Care Pyridine Operator Name Role Phone Pcp, No Primary Care Provider Unavailabl e Indira Bazan MD Primary Care Provider [phone] Pcp, No Primary Care Provider Unavailabl e Source Comments In the event this information is protected by the Federal Confidentiality of Alcohol and Drug AbusePatient Records regulations: The Federal rules restrict any use of the information to criminally investigate or prosecute any alcohol or drug abuse patient.[facility] Encounter Details Date Type Department Care Team (Late st Contact Info) Description 06/12/2016 Patient Msg Orthopaedics [address] [place] [address] Zander Montiel PA-C [address] [place] [address] Scotty Lawson//Juli MARQUIS Social History Tobacco Use Types Packs/Day Years [...] on filedocumented in this encounter Care Teams Pyridine Operator Relationship Specialty Start Date End Date Pcp, No PCP - General 05/29/16 08/13/16 Indira Bazan MD PCP - General Internal Medicine 08/14/16 05/26/17 Pcp, No PCP - General 05/27/17 12/26/17 documented as of this encounter
--- OUTSIDE RECORDS SUMMARY | 2024-12-20 20:20 | XMS_ITS | CCD ---
Author Organization [facility] Care Team Providers Care Account Analyst Name Role Phone FIGALISTAIR, JOSE A Unavailable Unavailable FIGLER, JOSE A Unavailable Unavailable FARROW, LUTUL D Unavailable Unavailable FIGLER, JOSE A Unavailable Unavailable MELISSA, AGAPITO Unavailable Unavailable FARROW, LUTUL D Unavailable Unavailable JAMES JONES (PHILLIP) Unavailable Unavail able MELSISA, AGAPITO Unavailable Unavailable MELISSA, AGAPITO Unavailable Unavailable MELISSA, AGAPITO Unavailable Unavailable Nick Ng Unavailable Amanda Mueller Unavailable Amanda Samuel Unavailable ROCHELLE Samuel Primary Care Provider MD Nick Ng Attending Provider ELYSE Mueller Attending Provider HAYDEE ., DR [...] Consulting Unavailable MD Darci Chen Attending Provider [phone] Rohrbacher, RIVET CATCHER Amanda Primary Care Provider MD Darci Chne Attending Provider [phone] Darci Chen Unavailable Rohrbacher, RIVET CATCHER Amanda Attending Provider [phone] Rohrbacher FOURDRINIER MACHINE TENDER, Amanda A Primary Care Provider Unavailable Rohrbacher FOURDRINIER MACHINE TENDER, Amanda A Primary Care Provider Unavailable Primary Care Provider UnavailALESSIA Alberto Attending Unavailable ROHRBACHER, AMANDA Primary Care Unavailable Rohrbacher, Amanda Primary Care Unavailable Kalie Diaz Attending Unavailable Kalie Diaz Admitting Unavailable Rohrbacher, Amanda Primary Care Unavailable Rohrbacher, Amanda Primary Care Unavailable Weston, Emiliano L Attending Unavailable Weston, Emiliano L Admitting Unavailable Rohrbacher, Amanda Primary Care Unavailable Le, Jaylen K Attending Unavailable Le, Jaylen K Admitting Unavailable Rohrbacher, Amanda Admitting Unavailable Rohrbacher, Amanda Attending Unavailable Rohrbacher, Amanda Primary Care Unavailable Kalie Diaz Admitting Unavailable Rohrbacher, Amanda Primary Care Unavailable Kalie Diaz Attending Unavailable ROHRBACHER, AMANDA Referring Unavailable ROHRBACHER, AMANDA Primary Care Unavailable Rohrbacher, Amanda Primary Care Unavailable Nick Noonan Jr Admitting Unavailable Nick Noonan Jr Attending Unavailable CALVIN, KALIE Attending Unavailable JASMEET HUBBARD Attending Unavailable CALVIN, KALIE Attending Unavailable CALVIN, KALIE Attending Unavailable CALVIN, KALIE Attending Unavailable HAYDEE, JASMEET Attending Unavailable CALVIN, KALIE Attending Unavailable CALVIN, KALIE Attending Unavailable CALVIN, KALIE Attending Unavailable Amanda Samuel APRN Primary Care Provider Nick Noonan MD Emergency Provider Siomara Lau CMA Attending Provider UnavailAmanda Carlisle APRN Attending Provider [phone] Kalie Simpson PA-C Attending Provider Unavailable Allergies Allergy Classification Reported Allergen(s) Allergy Type Date of Onset Reaction(s) Facility (1 source) No Known Medication Allergies; Translations: [No Known Medication Allergies] Propensity to adverse reactions to drug (disorder) [facility] Medications Current Medications Medication Drug Class(es) Dates Sig (Normalized) Sig (Original) acetaminophen 325 mg oral tablet (12 sources) take 1 tablet by mouth every four hours Tylenol 325 MG 1 tablet as needed Orally every 4 hrs Active azithromycin 250 mg oral tablet (1 source) Macrolide Antimicrobial Start: 12-25-2022 Azithromycin 250 MG 2 tablet on the first day, then 1 tablet daily for 4 days Orally Once a day for 5 day(s) Nov, Active benzonatate 200 mg oral capsule (1 source) Non-narcotic Antitussive Start: 12-25-2022 take 1 capsule by mouth every eight hours Benzonatate 200 MG 1 capsule Orally Three times a day for 10 days Nov, Active ibuprofen 600 mg oral tablet (13 sources) Nonsteroidal Anti-inflammatory Drug Start: 09-11-2024 take 1 tablet by mouth every eight hours as needed for pain Ibuprofen 600 mg tablet Active 600 MG PO Q8H as needed for pain September 11, 2024 12:00am Complies with drug therapy take 1 tablet by goyo th three times daily at mealtime as needed Ibuprofen 400 MG 1 tablet with food or milk as needed Orally Three times a day Active methylPREDNISolone 4 mg oral tablet (1 source) Corticosteroid Start: 11-29-2024 take 1 tablet by mouth once Methylprednisolone (Medrol (Prieto)) 4 mg tablets,dose pack Active 0 PO per package directions November 29, 2024 12:00am PO PER PKG DIR Complies with drug therapy metroNIDAZOLE 500 mg oral tablet (3 sources) Nitroimidazole Antimicrobial Start: 07-08-2024 End: 07-26-2024 take 1 tablet by mouth in the morning metroNIDAZOLE (Flagyl) 500 MG tablet Indications: BV (bacterial vaginosis) Take 1 tablet (500 mg) by mouth in the morning and 1 tablet (500 mg) before bedtime. Do all this for 7 days. Do not drink alcohol while taking this medication. 14 tablet 07/08/2024 07/26/2024 Discontinued Start: 06-11-2024 End: 06-22-2024 take 1 tablet by mouth in the morning metroNIDAZOLE (Flagyl) 500 MG tablet Indications: BV (bacterial vaginosis) , Trichomonas infection Take 1 tablet (500 mg) by mouth in the morning and 1 tablet (500 mg) before bedtime. Do all this for 7 days. Do not drink alcohol while taking this medication. 14 tablet 06/11/2024 06/22/2024 Discontinued (Other) Potassium (15 sources) Start: 03-16-2024 End: 11-22-2024 Potassium 99 MG tablet 03/1611/22/2024 Discontinued Start: 03-16-2024 Potassium 99 M G tablet 03/16/2024 Active Completed/Discontinued Medications Medication Drug Class(es) Dates Sig (Normalized) Sig (Original) aspirin 81 mg oral tablet (12 sources) Platelet Aggregation Inhibitor, Nonsteroidal Anti-inflammatory Drug take 1 tablet by mouth once daily Aspirin 81 81 MG 1 tablet Orally Once a day Not-Taking ciprofloxacin 500 mg oral tablet (1 source) Quinolone Antimicrobial Start: 09-11-2024 End: 10-12-2024 take 1 tablet by mouth every two hours Ciprofloxacin Hcl (Cipro) 500 mg tablet Discontinued 500 MG PO Twice daily 6 September 11, 2024 12:00am October 12, 2024 1:12pm administer dose at least 2 hrs before/6 hrs after dairy products, calcium, zinc, and/or iron-containing products citalopram 20 mg oral tablet (20 sources) Serotonin Reuptake Inhibitor Start: 03-03-2024 End: 11-22-2024 take 1 tablet by mouth once daily Citalopram 20 mg tablet Discontinued 20 MG PO Daily March 24, 2024 1:00am October 12, 2024 1:12pm fluconazole 150 mg oral tablet (3 sources) [...] propionate 0.05 mg/actuat metered dose nasal spray (6 sources) Corticosteroid Start: 06-13-2023 End: 02-04-2024 take 2 spray(s) nasal route once daily fluticasone (Flonase) 50 MCG/ACT nasal spray Administer 2 sprays into each nostril Daily 06/13/2023 02/04/2024 Discontinued Start: 06-13-2023 End: 03-24-2024 take 1 spray(s) nasal route every twelve hours Fluticasone Propionate (Flonase Allergy Relief) 50 mcg/actuation spray,suspension Discontinued 1 SPRAY INTRANASAL Every 12 hours June 13, 2023 1:00am March 24, 2024 4:58pm administer into each nostril medroxyPROGESTERone acetate 10 mg oral tablet (2 sources) Progestin Start: 06-09-2023 End: 06-23-2023 take 1 tablet by mouth once daily Medroxyprogesterone 10 mg tablet Discontinued 10 MG PO Daily June 09, 2023 1:00am June 23, 2023 3:30pm medroxyPROGESTER one Acetate 10 MG Oral for 10 Days Active 24 hr metFORMIN hydrochloride 500 mg extended release oral tablet (20 sources) Biguanide Start: 12-09-2023 End: 06-22-2024 take 1 tablet by mouth every twenty-four hours at mealtime metFORMIN XR (Glucophage-XR) 500 MG 24 hr tablet Indications: Encounter for weight management Take 1 tablet (500 mg) by mouth in the evening. Take with meals Do not crush, chew, or split. 30 tablet 11 12/09/2023 06/22/2024 Discontinued (Other) Start: 06-09-2023 End: 10-12-2024 take 1 tablet by mouth once daily Metformin 500 mg tablet Discontinued 500 MG PO Daily June 09, 2023 1:00am October 12, 2024 1:12pm take 1 tablet by goyo th every twenty-four hours phentermine hydrochloride 37.5 mg oral tablet (20 sources) Sympathomimetic Amine Anorectic Start: 06-09-2023 End: 10-12-2024 take 1 tablet by mouth before mealtime [...] BEFORE BREAKFAST Oral for 30 Days Active potassium chloride 10 meq extended release oral capsule (1 source) Start: 03-24-2024 End: 10-12-2024 take 1 capsule by mouth once daily Potassium Chloride 10 mEq capsule, extended release Discontinued 10 MEQ PO Daily March 24, 2024 1:00am October 12, 2024 1:13pm propranolol hydrochloride 40 mg oral tablet (16 sources) beta-Adrenergi c [place] Start: 05-29-2023 End: 10-12-2024 take 1 tablet by mouth once daily Propranolol 40 mg tablet Discontinued 40 MG PO Daily 90 90 March 24, 2024 5:37pm October 12, 2024 1:13pm Problems Active Problems Problem Classification Problem Date Documented Date Episodic/Chronic Cardiac dysrhythmias (3 sources) Sinus tachycardia; Translations: [Tachycardia, unspecified] Onset: 05-13-2024 05-11-2024 Episodic Chronic obstructive pulmonary disease and bronchiectasis (1 source) Bronchitis, not specified as acute or chronic Episodic Coma; stupor; and brain damage (3 sources) Daytime somnolence; Translations: [Somnolence] 06-09-2023 Episodic Conditions associated with dizziness or vertigo (2 sources) Dizziness and giddiness; Translations: [Dizziness] Episodic Disorders usually diagnosed in infancy, childhood, or adolescence (16 sources) Attention deficit hyperactivity disorder, predominantly inattentive type; Translations: [Other specified behavioral and emotional disorders with onset usually occurring in childhood and adolescence] 06-09-2023 Chronic Endometriosis (1 source) Endometriosis of cervix; Translations: [Endometriosis of cervix] 06-09-2023 Chronic Female infertility (20 sources) Female infertility associated with anovulation; Translations: [Anovular menstruation] Onset: 05-08-2022 Chronic Fluid and electrolyte disorders (3 sources) Hypokalemia; Translations: [Hypokalemia] 06-09-2024 Episodic Fracture of lower limb (4 sources) Displaced fracture of medial condyle of right tibia, initial encounter for closed fracture; Translations: [Nondisplaced fracture of right tibial spine, initial encounter for closed fracture] Onset: 09-27-2021 Resolved: 12-06-2021 Episodic Genitourinary symptoms and ill-defined conditions (2 sources) Personal history of urinary (tract) infections; Translations: [Increased frequency of urination] Onset: 10-03-2021 09-19-2024 Episodic Headache; including migraine (1 source) Migraine; Translations: [Migraine, unspecified, not intractable, without status migrainosus] 06-09-2023 Chronic Headache; including migraine (1 source) Chronic headache disorder; Translations: [Chronic headache disorder] 06-23-2023 Episodic Immunizations and screening for infectious disease (3 sources) Encounter for screening for human papillomavirus (HPV); Translations: [Exposure to sexually transmissible disorder] Onset: 08-22-2021 06-09-2024 Episodic Joint disorders and dislocations; trauma-related (20 sources) Patellofemoral disorders, right knee; Translations: [Patellofemoral syndrome of right knee] Onset: 02-21-2016 01-27-2023 Chronic Menstrual disorders (20 sources) Irregular menstruation, unspecified; Translations: [Missed period] Onset: 05-08-2022 01-27-2023 Chronic Mood disorders (1 source) Mood disorders; Translations: [DEPRESSION UNSPECIFIED] Onset: 10-03-2021 Mycoses (2 sources) Mycosis; Translations: [Candidiasis, unspecified] 06-09-2024 Episodic Nonspecific chest pain (1 source) Chest pain; Translations: [Chest pain, unspecified] 03-28-2024 Episodic Other aftercare (2 sources) Surgical follow-up; Translations: [Encounter for follow-up examination after completed treatment for conditions other than malignant neoplasm] 07-26-2024 Episodic Other endocrine disorders (5 sources) Polycystic ovarian syndrome; Translations: [POLYCYSTIC OVARIAN SYNDROME] Onset: 10-03-2021 Chronic Other endocrine disorders (1 source) Polycystic ovary syndrome; Translations: [Polycystic ovarian syndrome] 06-09-2023 Chronic Other female genital disorders (1 source) Unspecified dyspareunia; Translations: [UNSPECIFIED DYSPAREUNIA] Onset: 10-03-2021 Chronic Other nervous system disorders (2 sources) Other chronic pain; Translations: [Other chronic pain] Onset: 10-25-2016 Chronic Other nervous system disorders (16 sources) Chronic pain; Translations: [Other chronic pain] 06-09-2023 Chronic Other nutritional; endocrine; and metabolic disorders (15 sources) Body mass index 30+ - obesity; Translations: [Body mass index (BMI) 38.0-38.9, adult] Chronic Other nutritional; endocrine; and metabolic disorders (4 sources) Body mass index 40+ - severely obese; Translations: [Morbid (severe) obesity due to excess calories] 06-09-2023 Chronic Other nutritional; endocrine; and metabolic disorders (1 source) Body mass index (BMI) 40.0-44.9, adult Chronic Other nutritional; endocrine; and metabolic disorders (2 sources) Weight increased; Translations: [Abnormal weight gain] 02-04-2024 Episodic Other and delivery including normal (4 sources) Encounter for test, result positive; Translations: [ENC TEST RESULT POSITIVE] Onset: 06-05-2022 Episodic Otitis media and related conditions (1 source) Dysfunction of eustachian tube; Translations: [Unspecified Eustachian tube disorder, unspecified ear] 06-13-2023 Episodic Residual codes; unclassified (1 source) Daytime somnolence; Translations: [Other hypersomnia] Chronic Residual codes; unclassified (2 sources) Sleep apnea; Translations: [Sleep apnea, unspecified] 06-09-2023 Chronic Residual codes; unclassified (1 source) Sleep apnea, unspecified Chronic Residual codes; unclassified (1 source) Other [...] Classification Problem Date Documented Da te Episodic/Chronic Abdominal pain (20 sources) Pelvic and perineal pain; Translations: [Pain in female pelvis] Onset: 09-05-2021 Episodic Administrative/social admission (20 sources) Patient encounter status; Translations: [Persons encountering health services in other specified circumstances] Onset: 03-11-2024 02-04-2024 Episodic Headache; including migraine (1 source) Headache; including migraine Mood disorders (1 source) Emotional lability; Translations: [EMOTIONAL LABILITY] Onset: 10-03-2021 Episodic Other complications of (20 sources) Missed miscarriage; Translations: [Missed ] Onset: 07-09-2016 01-27-2023 Episodic Other connective tissue disease (20 sources) Muscle weakness; Translations: [Muscle weakness (generalized)] Onset: 09-09-2016 01-27-2023 Episodic Other lower respiratory disease (20 sources) Cough; Translations: [Cough] Onset: 01-27-2023 01-27-2023 Episodic Other non-traumatic joint disorders (20 sources) Pain in right knee; Translations: [Pain in joint, lower leg] Onset: 09-09-2016 01-27-2023 Episodic Other non-traumatic joint disorders (20 sources) Limitation of joint movement; Translations: [Stiffness of unspecified knee, not elsewhere classified] Onset: 09-09-2016 01-27-2023 Episodic Other screening for suspected conditions (not mental disorders or infectious disease) (20 sources) Encounter for screening for malignant neoplasm of cervix; Translations: [ care status] Onset: 07-08-2016 Episodic Unclassified (1 source) Intractable chronic migraine with aura and without status migrainosus G43.E19 Viral infection (20 sources) Viral disease; Translations: [Viral infection, unspecified] Onset: 01-27-2023 01-27-2023 Episodic Results Test Name Value Interpretation Reference Range Facility [facility] CMP (CMP) (FOR REMOTE FH C USE)on 11-17-2024 Albumin [Mass/Vol] 3.5 g/dL 3.4 - 5.0 g/dL [facility] ALBUMIN GLOBULIN RATIO 1 NO [facility] ALP [Catalytic activity/Vol] 75 U/L 46 - 116 [facility] [Catalytic activity/Vol] 35 U/L 14 - 59 [facility] Anion gap [Moles/Vol] 11 mmol/L [facility] AST [Catalytic activity/Vol] 18 U/L 15 - 37 U/L [facility] Bilirubin [Mass/Vol] 0.3 mg/dL 0.2 - 1 .0 mg/dL [facility] Calcium [Mass/Vol] 9.2 mg/dL 8.5 - 10. 1 mg/dL [facility] Chloride [Moles/Vol] 105 mmol/L 98 - 10 7 mmol/L [facility] CO2 [Moles/Vol] 28.9 mmol/L 21.0 - 32.0 mmol/L [facility] Creatinine [Mass/Vol] 0.67 mg/dL 0.55 - 1.02 mg/dL [facility] GFR/1.73 sq M.predicted CKD-EPI (S/P/Bld) [Vol rate/Area] >60 >=60 mL/min/1.7 3m 2 [facility] Globulin (S) [Mass/Vol] 3.5 g/dL [facility] Glucose [Mass/Vol] 80 mg/dL 74 - 106 mg/dL [facility] Potassium [Moles/Vol] 3.9 mmol/L 3.5 - 5.1 mmol/L [facility] Protein [Mass/Vol] 7 g/dL 6.4 - 8.2 g/dL [facility] Sodium [Moles/Vol] 141 mmol/L 136 - 145 mmol/L [facility] TBH EGFR-NON AF BAHAMIAN >60 >=60 mL/min/1.7 3m 2 [facility] Urea nitrogen [Mass/Vol] 11 mg/dL 7.0 - 18.0 mg/dL [facility] Urea nitrogen/Creatinine [Mass ratio] 16.4 mg/mg [facility] Estimated glomerular filtrat ion rate (GFR) non- AmericanOrdered By: Kalie Simpson on 11-17-2024 GFR/1.73 sq M.predicted among non-blacks MDRD (S/P/Bld) [Vol rate/Area] mL/min/{1.73_m2} >=60 mL/min/1.7 2 [facility] Globulin Calc (S) [Mass/Vol] Ordered By: Kalie Simpson on 11-17-2024 Globulin (S) [Mass/Vol] 3.5 g/dL [facility] Laboratory - Chemistry and C hemistry - challengeOrdered By: Kalie Simpson on 11-17-2024 Albumin [Mass/Vol] 3.5 g/dL 3.4-5.0 [facility] ALP [Catalytic activity/Vol] 75 U/L 46-116 [facility] ALT [Catalytic activity/Vol] 35 U/L 14-59 [facility] AST [Catalytic activity/Vol] 18 U/L 15-37 [facility] Bilirubin [Mass/Vol] 0.3 mg/dL 0.2-1.0 [facility] Calcium [Mass/Vol] 9.2 mg/dL 8.5-10.1 [facility] Chloride [Moles/Vol] 105 mmol/L 98-107 [facility] CO2 [Moles/Vol] 28.9 mmol/L 21.0-32.0 [facility] Creatinine [Mass/Vol] 0.67 mg/dL 0.55-1.02 [facility] GFR/1.73 sq M.predicted MDRD (S/P/Bld) [Vol rate/Area] mL/min/{1.73_m2} >=60 mL/min/1.[address] [place] [address] Glucose [Mass/Vol] 80 mg/dL 74-106 [facility] Potassium [Moles/Vol] 3.9 mmol/L 3.5-5.1 [facility] Protein [Mass/Vol] 7.0 g/dL 6.4-8.2 [facility] Sodium [Moles/Vol] 141 mmol/L 136-145 [facility] Urea nitrogen [Mass/Vol] 11.0 mg/dL 7.0-18.0 [facility] Urea nitrogen/Creatinine [Mass ratio] 16.4 mg/mg [facility] Serum or plasma albumin/glob ulin mass ratioOrdered By: Kalie Simpson on 11-17-2024 Albumin/Globulin [Mass ratio] 1.0 {ratio} [facility] Serum or plasma anion gap de terminationOrdered By: Kalie Simpson on 11-17-2024 Anion gap [Moles/Vol] 11.0 mmol/L [facility] Bacteria [Presence] in Urine by AutomatedOrdered By: Nick Noonan on 09-11-2024 Bacteria Auto Ql (U) None seen [HPF] None Seen [facility] Basic Metabolic PanelOrdered By: Nick Noonan on 09-11-2024 Anion gap [Moles/Vol] 11.5 mmol/L 6.0-15.[address] [facility] Comment on above: Result Comment: --- 09/11/24414 --- Gap previously reported as: 11.8 mEq/L Performed By: #### C BC, BMP #### [facility] [address] [place] [address] --- 09/11/24414 -- -Gap previously reported as: 11.8 mEq/L Calcium [Mass/Vol] 9.7 mg/dL 8.6-10.3 [facility] Comment on above: Performed By: #### C BC, BMP #### [facility] [address] [place] [address] Chloride [Moles/Vol] 103 mmol/L 98-107 [facility] Comment on above: Performed By: #### C BC, BMP #### [facility] [address] [place] [address] CO2 [Moles/Vol] 25.3 mmol/L 21.0-31.0 [facility] Comment on above: Performed By: #### C BC, BMP #### [facility] [address] [place] [address] Creatinine [Mass/Vol] 0.74 mg/dL 0.60-1.20 [facility] Comment on above: Performed By: #### C BC, BMP #### [facility] [address] [place] [address] [place] Glucose [Mass/Vol] 91 mg/dL 70-100 [facility] Comment on above: Result Comment: [place] om Glucose Reference Range is dependent on time and content of last meal. Glucose of more than 200 mg/dL in a nonstressed, ambulatory subject supports the diagnosis of Diabetes Mellitus. ADA recommended reference range Performed By: #### C BC, BMP #### [address] ADA recommended refe rence rangeRandom Glucose Reference Range is dependent on time and content of last meal. Glucose of more than 200 mg/dL in a nonstressed, ambulatory subject supports the diagnosis of Diabetes Mellitus. Potassium [Moles/Vol] 3.8 mmol/L 3.5-5.1 [facility] Comment on above: Result Comment: Hemo lysis is present at a level that could interfere with the result. --- 09/11/24414 --- K previously reported as: 4.1 mmol/L Hemolysis is present at a level that could interfere with the result. Performed By: #### C BC, BMP #### [address] Hemolysis is present at a level that could interfere with the result. --- 09/11/24414 ---K previously reported as: 4.1 mmol/LHemolysis is present at a level that could interfere with the result. Sodium [Moles/Vol] 136 mmol/L 136-145 [facility] Comment on above: Performed By: #### C BC, BMP #### [address] Urea nitrogen [Mass/Vol] 16 mg/dL 11-19 [facility] Comment on above: Performed By: #### C BC, BMP #### [address] Basic Metabolic Panelon 05- Creatinine Clr Calc Pharmacy 153.81 Normal [facility] Comment on above: Result Comment: PERF ORMED BY: [place] [address] PATHOLOGIST [employer] GABY ARROYO M.D. Performed By: #### C CJ, BMP #### [facility] [address] GFR/1.73 sq M.predicted MDRD (S/P/Bld) [Vol rate/Area] mL/min/{1.73_m2} Normal [facility] Comment on above: Performed By: #### C CJ, BMP #### [facility] [address] Bilirubin Test strip Ql (U)O rdered By: Nick Noonan on 09-11-2024 Bilirubin Ql (U) Negative Negative [facility] CT abdomen pelvis wo conon 0 09-11-2024 CT abdomen pelvis wo con [facility] Main [place] [address] [place] [address] CT Scan Report Signed Patient: Saima Yancey MR#: [id number] : 1995 Acct:[id number] Age/Sex: 29 / F ADM Date: 09/11/24 Loc: ER Room: Type: [facility] ER Attending Dr: Copies to: Nick Noonan Jr, MD Ordering Provider: Nick Noonan Jr, MD Date of Service: 09/11/24 CT/CT abdomen pelvis wo con: L flank pain CT Abdomen and Pelvis withoutcontrast TECHNIQUE: Axial imaging with 2-D reconstruction. . The CT exam was performed using one or more the following dose reduction techniques: Automated exposure control, adjustment of the MA and/or Kv according to patient size, or use of the iterative reconstruction technique. COMPARISON: None History: Lower abdominal pain. Flank pain. Vomiting LIMITATIONS: None LOWER THORAX Unremarkable LIVER: Unremarkable GALLBLADDER: No gallbladder abnormality identified. BILE DUCTS: No dilatation SPLEEN: Unremarkable PANCREAS: Unremarkable ADRENAL GLANDS: Unremarkable KIDNEYS:Punctate right nephrolithiasis. Punctate left nephrolithiasis. AORTA: No abdominal aortic aneurysm identified. RETROPERITONEUM: No significant retroperitoneal abnormalities identified. MESENTERY:Unremarkable SMALL BOWEL: The small bowel loops are nondistended. APPENDIX: The appendix is normal. COLON: Unremarkable URINARY BLADDER: Urinary bladder is unremarkable. REPRODUCTIVE SYSTEM: Reproductive structures are unremarkable. PNEUMOPERITONEUM: None PERITONEAL FLUID:Trace free fluid in pelvis BONY STRUCTURES: Unremarkable ABDOMINAL WALL: Unremarkable CT/CT abdomen pelvis wo con IMPRESSION: No acute findings. No obstructive uropathy. Impression dictated by: Juanpablo Dennison M.D. 09/11/2024 8:37 AM Dictation Location: [place] [address] Transcribed By: [facility] 09/11/24 0837 Dictated By: Juanpablo Dennison DO 09/11/24 0834 Signed By: 09/11/24 0837 Normal [facility] Complete Blood Count Auto Di ffOrdered By: Nick Noonan on 09-11-2024 Basophils (Bld) [#/Vol] 0.0 10*3/uL 0.0-0.2 [facility] Comment on above: Result Comment: PERF ORMED BY: [place] [address] PATHOLOGIST [employer] GABY ARROYO M.D. Performed By: #### C BC, BMP #### [address] Basophils/100 WBC (Bld) 0.3 % . [facility] Comment on above: Performed By: #### C BC, BMP #### [address] Eosinophils (Bld) [#/Vol] 0.0 10*3/uL 0.0-0.45 [facility] Comment on above: Performed By: #### C BC, BMP #### [address] Eosinophils/100 WBC (Bld) 0.4 % . [facility] Comment on above: Performed By: #### C BC, BMP #### [address] Erythrocyte distribution width (RBC) [Ratio] 12.3 % 11.9-15.3 [facility] Comment on above: Performed By: #### C BC, BMP #### [address] Hematocrit (Bld) [Volume fraction] 44.3 % 34.0-46.4 [facility] Comment on above: Performed By: #### C BC, BMP #### [facility] [address] Hemoglobin (Bld) [Mass/Vol] 15.2 g/dL 11.8-15.4 [facility] Comment on above: Performed By: #### C BC, BMP #### [facility] [address] Lymphocytes (Bld) [#/Vol] 1.5 10*3/uL 1.00-4.8 [facility] Comment on above: Performed By: #### C BC, BMP #### [facility] [address] Lymphocytes/100 WBC (Bld) 17.1 % . [facility] Comment on above: Performed By: #### C BC, BMP #### [address] MCH (RBC) [Entitic mass] 30.9 pg 24.7-34.3 [facility] Comment on above: Performed By: #### C BC, BMP #### [address] MCV (RBC) [Entitic vol] 90.5 fL 80-100 [facility] Comment on above: Performed By: #### C BC, BMP #### [address] Monocytes (Bld) [#/Vol] 0.4 10*3/uL 0.0-0.8 [facility] Comment on above: Performed By: #### C BC, BMP #### [place] [address] [place] Monocytes/100 WBC (Bld) 4.5 % . [facility] Comment on above: Performed By: #### C BC, BMP #### [address] Neutrophils (Bld) [#/Vol] 6.6 10*3/uL 1.8-7.7 [facility] Comment on above: Performed By: #### C BC, BMP #### [address] Neutrophils/100 WBC (Bld) 77.7 % . [facility] Comment on above: Performed By: #### C BC, BMP #### [address] Platelet mean volume (Bld) [Entitic vol] 9.3 fL 6.3-10.7 [facility] Comment on above: Performed By: #### C BC, BMP #### [address] Platelets (Bld) [#/Vol] 253 10*3/uL 150-450 [facility] Comment on above: Performed By: #### C BC, BMP #### [address] RBC (Bld) [#/Vol] 4.90 10*6/uL 3.60-5.00 [facility] Comment on above: Performed By: #### C BC, BMP #### [address] WBC (Bld) [#/Vol] 8.5 10*3/uL 3.8-11.6 [facility] Comment on above: Performed By: #### C BC, BMP #### [address] Complete Blood Count Auto Di ffon 09-11-2024 Mean Corpuscular HGB Conc 34.2 g/dL Normal 32.0-35.0 [facility] Comment on above: Performed By: #### C BC, BMP #### [address] Monocytes/100 WBC (Bld) 17.62 % Normal 0.00-20.00 [facility] Comment on above: Performed By: #### C BC, BMP #### [address] NRBC% 0.2 /100{WBC} Normal 0-0.5 [facility] Comment on above: Performed By: #### C BC, BMP #### [facility] [address] [place] [address] [place] Dipstick and MicroscopicOrde red By: Nick Noonan on 09-11-2024 Appearance (U) Clear Clear [facility] Comment on above: Order Comment: Name Collection Type:: Clean-Voided Midstream Performed By: #### U HCG, ADDONUAPLUS #### [facility] [address] [place] [address] [place] Color (U) Colorless Yellow [facility] Comment on above: Order Comment: Name Collection Type:: Clean-Voided Midstream Performed By: #### U HCG, ADDONUAPLUS #### [place] [address] [place] Ketones Ql (U) Negative Negative [facility] Comment on above: Order Comment: Name Collection Type:: Clean-Voided Midstream Performed By: #### U HCG, ADDONUAPLUS #### [place] [address] [place] Leukocyte esterase Test strip Ql (U) Negative Negative [facility] Comment on above: Order Comment: Name Collection Type:: Clean-Voided Midstream Performed By: #### U HCG, ADDONUAPLUS #### [place] [address] [place] pH (U) 5.5 [pH] 5.0-9.0 [facility] Comment on above: Order Comment: Name Collection Type:: Clean-Voided Midstream Performed By: #### U HCG, ADDONUAPLUS #### [facility] [address] [place] [address] [place] Dipstick and Microscopicon 0 09-11-2024 Bacteria,Urine None Seen Normal None Seen [facility] Comment on above: Order Comment: Name Collection Type:: Clean-Voided Midstream Performed By: #### U HCG, ADDONUAPLUS #### [place] [address] [place] Bilirubin,Urine Negative Normal Negative [facility] Comment on above: Order Comment: Name Collection Type:: Clean-Voided Midstream Performed By: #### U HCG, ADDONUAPLUS #### [facility] [address] Glucose Ql (U) Normal Normal Normal [facility] Comment on above: Order Comment: Name Collection Type:: Clean-Voided Midstream Performed By: #### U HCG, ADDONUAPLUS #### [facility] [address] Hyaline Casts,Urine None Normal 0-8 [facility] Comment on above: Order Comment: Name Collection Type:: Clean-Voided Midstream Performed By: #### U HCG, ADDONUAPLUS #### [address] Nitrite,Urine Negative Normal Negative [facility] Comment on above: Order Comment: Name Collection Type:: Clean-Voided Midstream Performed By: #### U HCG, ADDONUAPLUS #### [address] Occult Blood,Urine 2+ High Negative [facility] Comment on above: Order Comment: Name Collection Type:: Clean-Voided Midstream Performed By: #### U HCG, ADDONUAPLUS #### [address] Protein,Urine Negative Normal Negative [facility] Comment on above: Order Comment: Name Collection Type:: Clean-Voided Midstream Performed By: #### U HCG, ADDONUAPLUS #### [facility] [address] [place] [address] RBC,Urine None Seen Normal 0-4 [facility] Comment on above: Order Comment: Name Collection Type:: Clean-Voided Midstream Performed By: #### U HCG, ADDONUAPLUS #### [facility] [address] [place] [address] Specificy [place],Urine 1.002 Normal 1.001-1.03 0 [facility] Comment on above: Order Comment: Name Collection Type:: Clean-Voided Midstream Performed By: #### U HCG, ADDONUAPLUS #### [address] Urobilinogen,Urine Normal Normal Normal [facility] Comment on above: Order Comment: Name Collection Type:: Clean-Voided Midstream Performed By: #### U HCG, ADDONUAPLUS #### [facility] [address] [place] [address] WBC,Urine None Seen Normal 0-4 [facility] Comment on above: Order Comment: Name Collection Type:: Clean-Voided Midstream Performed By: #### U HCG, ADDONUAPLUS #### [facility] [address] [place] [address] Epithelial cells.squamous [# /area] in Urine sediment by Automated countOrdered By: PROVIDER CRITSOPHER on 09-11-2024 Epithelial cells.squamous Auto (Urine sed) [#/Area] N/A [facility] Erythrocytes [#/area] in Uri ne sediment by Automated countOrdered By: Nick Noonan on 09-11-2024 RBC Auto (Urine sed) [#/Area] None seen [HPF] 0-4 [facility] Glucose [Mass/volume] in Uri ne by Test stripOrdered By: Nick Noonan on 09-11-2024 Glucose Test strip (U) [Mass/Vol] Normal mg/dL Normal [facility] HCG ( test) IA.rapi d Ql (U)Ordered By: JAN NICHOLAS on 09-11-2024 HCG ( test) Ql (U) Negative [facility] HCG,Urineon 09-11-2024 Beta HCG ( test) Ql (U) Negative Normal [facility] Comment on above: Order Comment: Name Collection Type:: Clean-Voided Midstream Result Comment: PERF ORMED BY: [place] [address] PATHOLOGIST [employer] GABY ARROYO M.D. Performed By: #### U HCG, ADDONUAPLUS #### [address] Hemoglobin Test strip Ql (U) Ordered By: Nick Noonan on 09-11-2024 Hemoglobin Ql (U) 2+ High Negative [facility] Hyaline casts [#/area] in Ur ine sediment by Automated countOrdered By: Nick Noonan on 09-11-2024 Hyaline casts Auto (Urine sed) [#/Area] None [LPF] 0-8 [facility] Leukocytes [#/area] in Urine sediment by Automated countOrdered By: Nick Noonan on 09-11-2024 WBC Auto (Urine sed) [#/Area] None seen [HPF] 0-4 [facility] Leukocytes [#/volume] correc juan for nucleated erythrocytes in Blood by Automated counOrdered By: Nick Noonan on 09-11-2024 WBC corrected for nucl RBC Auto (Bld) [#/Vol] 8.5 10*3/uL 3.8-11.6 [facility] MCHC Auto (RBC) [Mass/Vol]Or dered By: Nick Noonan on 09-11-2024 MCHC (RBC) [Mass/Vol] 34.2 g/dL 32.0-35.0 [facility] Monocyte distribution width [Entitic volume] in Blood by AutomatedOrdered By: Nick Noonan on 09-11-2024 Monocyte distribution width Auto (Bld) [Entitic vol] 17.62 % 0.00-20.00 [facility] Nitrite Test strip Ql (U)Ord ered By: Nick Noonan on 09-11-2024 Nitrite Ql (U) Negative Negative [facility] No Panel InformationOrdered By: Nick Noonan on 09-11-2024 Estimated GFR (CKD-EPI) > 60.0 mL/Min [facility] Creatinine Clearance (Chem 153.81 [facility] Nucleated erythrocytes [Pres ence] in Blood by Automated countOrdered By: Nick Noonan on 09-11-2024 Nucleated RBC Auto Ql (Bld) 0.2 /100{WBC} 0-0.5 [facility] Protein Test strip (U) [Mass /Vol]Ordered By: Nick Noonan on 09-11-2024 Protein (U) [Mass/Vol] Negative Negative Fi [facility] Specific gravity Test strip (U) [Rel density]Ordered By: Nick Noonan on 09-11-2024 Specific gravity (U) [Rel density] 1.002 1.001-1.03 0 [facility] Urobilinogen Test strip (U) [Mass/Vol]Ordered By: Nick Noonan on 09-11-2024 Urobilinogen (U) [Mass/Vol] Normal mg/dL Normal [facility] Urinalysis macro (dipstick) panel (U)on 07-26-2024 Bilirubin, UA Negative Negative - 4(70) +++ mg/dL [facility] Blood, UA Positive Negative - 50 Jay/mcL [facility] Comment on above: trace-intact Clarity, UA Clear [facility] Color, UA Yellow [facility] Glucose, UA Negative Negative - 2000(110) ++++ mg/dL [facility] Interpretation and review of laboratory results Abnormal [facility] Ketones, UA Negative Negative - 160(16) ++++ mg/dL [facility] Leukocytes, UA Negative Negative - 500+++ Ary/mcL [facility] Nitrite, UA Negative Negative - Positive [facility] pH, UA 7 5 - 9 [facility] Protein, UA Negative Negative - 2000(20) ++++ mg/dL [facility] Spec Grav, UA 1.02 1 - 1.03 [facility] Urobilinogen, UA 0.2 0.2 - 12 mg/dL [facility] RECURRENT VAGINITIS (HTRX)on 06-11-2024 ATOPOBIUM VAGINAE 27.705 Abnormal [facility] ATOPOBIUM VAGINAE Detected Abnormal [facility] BVAB 2,3 (BACTERIAL VAGINOSIS ASSOCIATED BACTERIA 2, 3); MOBILUNCUS SPP 23.788 Abnormal [facility] BVAB 2,3 (BACTERIAL VAGINOSIS ASSOCIATED BACTERIA 2, 3); MOBILUNCUS SPP Detected Abnormal [facility] RAMAKRISHNA ALBICANS, PARAPSILOSIS, TROPICALIS 24.65 Abnormal [facility] RAMAKRISHNA ALBICANS, PARAPSILOSIS, TROPICALIS Detected Abnormal [facility] RAMAKRISHNA GLABRATA 0 [facility] RAMAKRISHNA GLABRATA Not detected [facility] RAMAKRISHNA KRUSEI 0 [facility] RAMAKRISHNA KRUSEI Not detected [facility] CHLAMYDIA TRACHOMATIS 0 [facility] CHLAMYDIA TRACHOMATIS Not detected N [facility] GARDNERELLA VAGINALIS 0 [facility] GARDNERELLA VAGINALIS Not detected [facility] Interpretation and review of laboratory results Abnormal [facility] MEGASPHAERA (TYPES 1, 2) 0 [facility] MEGASPHAERA (TYPES 1, 2) Not detected [facility] MYCOPLASMA GENITALIUM 0 [facility] MYCOPLASMA GENITALIUM Not detected [facility] NEISSERIA GONORRHOEAE 0 [facility] NEISSERIA GONORRHOEAE Not detected [facility] TET B, TET M 19.035 Abnormal [facility] TET B, TET M Detected Abnormal [facility] TRICHOMONAS VAGINALIS 17.579 Abnormal [facility] TRICHOMONAS VAGINALIS Detected Abnormal [facility] Coding Summaryon 05-27-2024 Coding Summary HTMLBase 64 XizulfpwJCh4oCa+PGhlYWQ+PE1 FXNQvI29arKVwiU1rF8WQIEjEJt ryOAOJCUbWOdQqoqOnVL7aaUNjF XJu IC8+JC8pLILjPogvpWRey3P3nBX 8E70ibi5cDFnxzML0CXZmHuTmka beg6lanSx8HCryWnhrCxWu ZIFyiO50TXS7gR54Td60eNZhcLM du5aejSi2NnBtJAKfAVI5eKmcRY hpg0NfXYTsB84laATkh5F3 HYJidOnlxFCiPiTaiIZ5lP7gUOo nhjgdi6ixlsuzRhk1tr06pYXdq0 R4dQZ1P4QupfT0ESQnbBCo WnjaoDZZhO6ptaayw9rgwvcwUuH aWBWyGIe2NIv6ZXAynVkdWkPrUI 09OMH5UDHswjYtK5FyASIi wJrbQoK1t8D2Tj8RX3FAWljkP0D NTUFSWTwvdGQ+FP98sz29A1TmNc ltZgg3ZSSpDUF7mFF8xH8t JRDzQOoeq3H3vQT9M7EibwExye6 by9ikKAUrMLseL55dxHJum0Y2YI IgqWS0WBGkuLjyDsWyzJ29 Oyc+ENYucOfgb3VmWnoce8pqg1b hlIe2TagpQTDczaKzxLceLGY6y1 OuPp7wLNOuiPY2sEZ9zI4j DtYtFbI0GJnxB736UnVolLGvSlw zA67tZ2QwkFO+IFYrTkp7PYXgwQ mvPE6eD9HqCTHcohkhfDEs kKetHT5oGDPhvpekWEBjcO9nKXL hQ8i0BtFpJjU9CNfdK0XaZBChjb ifWy41jV9qSrGiJdG3FNnf E5QorcN9GAJaqEMwSRxzMUC2J69 iq4B0GEVbACZkUGX8cPX9cU5vmO lnbjogbGVmdDsgdmVydGlj IUpyHFllF543UDPgaThaEpJlPVi uZyBEYXRlOiAgMDEvMzAvMjAyNT wvdGQ+HBZnHDN7dRczDPAa rLFiJAvqDh1bhKiolSehHX6rQTC ynbbeTYVndI9cLPAwnZYgyZurXW 3cFAGknqxca545VhFuLRM7 DCYulESxB6TbfM5rNxVvJTQwVCJ uR6DwkDYnIDkzC754QBqmBoV1LM UocjBzL8LpYFKeqGwuJzF5 u0D8Zf0Zo2KzmcreO9XysVXwOmD tKskmZXu7E4HlDbmkqKC+PC90YW SbNV28LXy2ARV5wMveZOta PEZjP8KtwC3nZuGcZUMlXAUtMbb +PHRhYmxlIHdpZHRoPScxMDAlJy TcvNwmLE0xHy3bDOPsDABk fDsgaOPfEdEkb7iaIBKfFBumRN5 qaFztG8MpoHI5MNYkr8q0Qt00C2 7cK5AjeFS+CLXusGR3cGK8 fM0fCxZtFsD1YOgaS770AwPmmSB vBcqun6rez8yrhQw9MgU9ADQhtb KedBsjWKP2o8WfDk88E69u IHdpZHRoPSIxNSUiIHZhbGlnbj0 imU4jZt6+RJLpxUM4lLU7oB9qVm GmKhM2SOpvK380XcTrhRTl Bmxjc4pot1cggQm9KkQiLQJnlzA zzLlpIWW9z1WcPh50J0JsrEsun5 LlRxt9iu48sUJfo7A1wCL0 B4IlKIOcbqnkzGObfWzkWW4cAHO qubawVWSclD0eZBAzS6i1HvXeFx Y2OOylZ1JtyfC9DXOqeQIr PJAeyHVEjX2yechuu5nwffadHuA mERYvJTf7RRi2VPGpxBstPeZlJG B4VoW0FLW6vDHtaR1oeHoy wdxcfI6fGcl+JFA1qXIlbKVNGM8 lOjwvdGQ+QUNxTWC1gJxtBLihBU ThgY1pNRXqG9m0SyNqPcY4 SOloZ1ZnrrO7DOJfjDHxCTDjnQB OjA6qxxsqu1edzgheNyRjGUVnVB b0VVu6GUFgaYmrFjRzZEI5 LsS0ETJ5wEDwoY2gtBnmttvmuV1 wOyc+EetnrFrbSIB5OCb5F0DaEq v1PSElxBxcGY9ioRZuSMmr Vi5qpZoumVplHD8fGJSiykxpi32 8RgHsx1ziVPCftLQgOAhsZVK0Y5 5ms6F4HLVyOVSpGUB7aPK1 uY8kfAhiiporhTZigVgdwpMtvTk lFTdmVLqlL201BTAknBstFqVmCA t6F8TxDws1AETpbVxbNP3u rJPxDYjsIh1sxAhtsWpgNZ0oLLS vuhimr448JpUrk7pkNOQfnKJbPZ vhYAP9S45jk4T3AOFdAEBo XRZ8tDT9oU4gzWbqqbjojRRzlHq aqkMxsIilETasQKnhO676UGUwiU vuWdAhpMk7M5LeKaq1DQQc nYjkVM9itRLpQWxoTi7ltQehiXt iKQ0yZQWprtoqv973OyOnh1ejZQ PdvUBuLActYVO0G71rb9M3 XKWxORXcHCQ8sDI5eA3pnCsidhl gbGVmdDsgdmVydGljYWwtYWxpZ2 46IHRvcDsnPlBhdGllbnQg UCnvMWp2G0MiJpqglKR+DM54THH gEW36cUEqqHPmv9mfpDp9WrKdPZ AeXXG3lNmyJAfou3MwFEUy C59waBKfc1S5EKTakDsqpYKwQxF lbBI5mC7fJJgatmyyt3mnjxuaZb zgp9zcpc24cL42Q19zTHlp DEZlZQHoLQUkNEUurBslkq2jgU4 wIi8+PEOpaAQ0eEE8vI7aUTHqIu P2HIusB266QyUriZHnRtpo j7ltc3jauHu6HuL3VUPyprJfiOp nBAJ6k8BkUp82K35dCJtzZKYgQY QnJTDdXUIsoLpyxl9hmY7v Ii8+MWEthTM8xZT1jP1bXbLiJpN 2NGxjW931YxIjhKUyDqhtE42rM0 JvdXA+IGVtAgr7QZVehPmr LH1qtNWqUXukEl4eNTS6VkPyRjM yLVzrQ5GdOXMeepdvwqlknIF9KL AbHOGkyH84Gs3lrPkiKUOl uYIMzM5xuvnxn6lurnelZjVwSVB vYXb3ERx9DCVfgSirJdNdWPD9Hw M3GKX0zEYtjV0pcXxygjhs dG8dT3BoOEEsseksLw65vZ4aBnT tBfG6GWzhDex+RURXQVJEUywgU0 aXUCUCNGkDRh78V8PsGbu0 JVJxlBorIG6ovGGgMHqfTw0rmJq qyCauBN5eNCZvvfbwHNYswK1kRA YgqFKeiClbPM4jUVAepfqn o921XlMqTVN0NBAjzPDkZ8AokG3 gXyPnGGWaCEWiY2BjkLYlJAmyQ2 88GNatEgT5CSWtrbXaP8Ry LPMbjZnmTsN4s4G2Mu4sXm3oLr9 sYEs6FA58NS81fNDoq4G2pLP7K3 XuNLNnjapnwxownCQ8SLXr HWNxfH35kMXbUExsPg8sg6H8a97 4YIKtVXZsdH72Hh3adHcaEDWqiN IRvE8wydwjh8xlhvsfWhFk QVEgSKm5QSw1TJYwsAxuAiFlYKE 9AtR7WTR5rPUxjA8ljOxwacxpoZ 9wOyc+PoouXIQjoaR5E3Uv Ghv1WUWdoLhxHT3fxFYuTOgyHz0 auTtbgHkcTI7yGWAqpfyiQOYqoH 3cFFVohVNjwZryWU5yMEQo rvucu188SmKrEAX1CBUojRPdE2L iuH1cGgIhZEJqAAXwH7GrmUVeWZ wrU950WThoHlY3RURvhcGl W9HeZVRgwOriCgK1k9P9Di4PQN5 FMWO0Y4YoUib5YZVzbLbqMS1grA MqJSckGu1sfWnelAllNK3x TTZgurznJNPefU9zOQVgpNOslUo iUP5nLDVivexbb407YhDlAAL3JT IfrEBhT9VtcF4wVeZrFRRo TBAjM9VnlNYuMZsuK349HVvdTlZ 2XIOzewEzA9QlGXAnaJdwBpO4w1 V1Lh8MEFrvvBA+KL99qw12 W4BaIearQfe9MSObADN4qSB1kO3 tLWJzTGjps5K8cHW3I2VjnxFbup 6dg8mvSKBkFOmjE37clPFg b6F7NCZkdYZ5YILveGolFzLrfC1 3Oyc+AKGikGaga9EdIhnmh2bxd5 zugWi7SxVpRKMzylQlrDty QNF6w8XvQs91B36xOIhsIBUhBNF qDHIcUTYlqYvaxu3gpQ3iYb0+PG BrcXE6gVY2xA8jOeIrYhO7 VFvkM271VdUquFAoNadlv7vsh5w liSz6YqPpSTIltdBarDdzTEH5o9 OsUz54G8KmcKend6UzFci2 pp75rVYyl9N3oFT4E1FlSQJfznt quMSazBllSJ6tNKWcmxeiAVJngN 1vUNNzL7h8StZgXlF1PSua T1FoulU0TTBxjKRwWXZwcPIGdW1 zzllpw4yylnkwUlEzORYpTPj1IU v9FAIglBppHaBjFBG3MbX4 VOI9aJMliY8juSduieeloM4qAyg +ZZx5c4xdwHYbZF3ncEB9KQ91IQ 35aEEnw0H7zWM7Q6QfQOOt uoowfakzbVE4WQOzOTLnlK55Ev9 zkFpwMz4uXSCkOWR0QSLisRGcJ2 WvtO8vOyJoVYMkFGBeK1Wb kPUcGTzmI511BXtlPjF7OMThtfW oP1MbZVTrrPmfJwL4a4E1Vz7KKT 94AU64TL52pRBav1H0bIN2 Q1TrJSRiuqlkgqiorSG9WUCoTPI mxD80Mc7yeXqqJp8yNIZgZTF7LG KruVQzH4QksB3nHpEcZGCe OABxS5LejIDxICgkG928LCwfOqZ 2YQEewmBtH2ZnKJSdoKjeZzQ0t9 N1Es7XFo20ET06BA22lJEa w1B2zJG3Z2RsWMKzlnoigelrsLL 1PUMfMMOtzX14Ka5reFfaTb1xBT OdDKH7BBMnaVPsV3NjbE6r YqBgMOLnSYFyM7ZtcJMcTZkoD37 0XJldKkB8QGHusqKjR4XoXUIqfJ hxCaW5y1C3Qy5MSJesrcs1 E4LwEihvqVF+YT91VAQjJG93cDG syJPzd9adyIy8UtNiUJExOXR7qT wmFVqdd6WsUJEhV18hfZWe c2U (more content not included)... Normal [facility] Holter Monitoron 05-26-2024 Holter Monitor [id number] Normal [facility] Triage Panel 10on 05-21-2024 Drug Screen Complete Collected Normal [facility] Comment on above: Performed By: #### 2 [id number] ####[facility] (DEFAULT)[address] [place] [address] US Echocardiogram Completeon 05-19-2024 US Echocardiogram Complete [...] LVDs 3.40 (2.1 - 4.0 cm) LV Shfz869.12 g LVOT Diameter 2.22 cm IVC1.28 (<= 2.1cm) M-Mode Dimensions TAPSE 1.6 (>1.7) LV Volume - Method of Disks (Berrios's) Single Plane 2D LV VolumesBiplane 2D LV Volumes LV EDV K9L190.0 mLLV EDV BP114.54 mL LV ESV A4C44.7 mLLV ESV BP47.4 mL LVEF(%) A4C56.2 %LVEF(%) BP58.59 % LV EDV P8J462.0 mLLV EDV BP Index47.79 mL/m2 LV ESV A2C47.1 mLSV (BP)67.10 mL LVEF(%) A2C62.0 %SV (BP) Index28.00 mL/m2 CO BP4.8 L/min Left Atrium Volume Systole (Method of Disks) Single Plane 4 CH 35.24 mLBiplane LA Aleuzk20.20 mL Single Plane 2 CH28.95 mL Right [facility] Area Systole RA Systolic Area A4C19.45 cm2RA Systolic Vol A4C58.50 mL Aortic Valve AoV Peak Velocity1.14 m/sLVOT Peak Velocity1.03 m/s AO Mean Velocity0.76 m/sLVOT Mean Velocity0.60 m/s AO Peak PG5.23 mmHgLVOT Peak PG4.28 mmHg AO Mean PG2.64 mmHgLVOT Mean PG1.79 mmHg AO V2 VTI18.50 cmLVOT V1 VTI18.44 cm KATIE (Vmax)3.50 oe5XIIQ Area 3.87 cm2 KATIE (VTI)3.86 cm2SV (LVOT) 71.43 mL Indexed KATIE (VTI)1.61 cm2/m2 Mitral Valve MV E Max Velocity0.72 m/sMV PHT40.61 ms MV A Max Velocity0.37 m/sMVA (PHT)5.42 cm2 E/A Ratio1.93 MV Decel. Bfpt900.04 ms TDI Med e' Uhheowuf37.44 cm/sMV E / Medial e' 6.32 Lat e' Uhdbcifh68.60 cm/sMV E / Lateral e' 4.11 TV S'12.32 cm/s Pulmonary Valve PV Peak Velocity0.86 m/sPV Peak PG2.95 mmHg WI End Diastolic Robert.61.69 m/s PV Mean PG1.64 mmHg Tricuspid Valve RAP Estimate3.00 mmHg Final Signed (Electronic Signature): Dante Choudhary MD 05/20/24 10:27 a Technologist: [facility] Provider Orderson 05-13-2024 Provider Orders [id number] [place] Coding Summaryon 03-29-2024 Coding Summary HTMLBase 64 AoplhatsRXi6lWz+PGhlYWQ+PE1 YRVVrE94tjPNbeX5cW3FCWGtRKp txRFEEOPeRIgAqrsAxJK1jkSXkW XJu IC8+ZX3rTIZbFruaoAHlp7D9xGX 5E13wzu6vQRtvpOD9TMPnQzGnxe zbg5eddMa2JAxnEtilLyPi LKCpkF37NWB0fL18Aa10hHPfuWD cz2czbJu4IvXiHGAbHXN9yRoaBD ncu0DrBFHbE72boERko3W5 LWUmfFqkzNSvHkSfmSE8jH4oMEp wwitnf3zkoauvZsu2ih49nWWps5 Y9wPE4U1XqgeB7UUUthTVv GilgmCRIfQ9gexifq5okapvyUjK jIJViTXe6FLr5FFNwfFnkLbUtPH 68NCR2NHDnsnNnH0LxQSTy aTrsZeV5e9P6Ae8MU6PDNdnyH1U NTUFSWTwvdGQ+DA86ja13T8QuIu qhNpb5CHVoAVO4dCU4hA7w OBKeUGubq4P4eLN3B2MoqqNphg6 tc2ppDOGqHPnoQ12nrNHod7T9AP NbfVY2HNXbjOdcZiUjxB01 Oyc+XXVttGpmd6JmUtgpq2kae6x adCs7EqraXVGllyRnlZcvGTF9q1 NiXk4uFTNmdPC8rXI9sL3f NlKtVmD3GGpoP196DzVigKKsAfy nW39xC3FzgJC+KWMfBkg5VUFeyC nzOH4tB5CqEWEwjreloDRf rEisKT5wOQNzywaoGDHkyR8wOWG bR1v7KwWbNlG4KOpiC5TlRAIddo ibNa73sB0zSpSkGsF3XUqa J1DlwkU4TWTxeKHzTGbrRMP1V00 ws9H0XYVmRZNzBOX0yOF4cQ0guG lnbjogbGVmdDsgdmVydGlj MOddHNnhH653OVRkiVpvUwDqJWe uZyBEYXRlOiAgMTIvMDIvMjAyND wvdGQ+WOMmZPV0gDomUMBw oLErPCtqTw0skGsttXnqNB6xDWU chrnbCWIfxM2nZRWayQWlrMeeBX 0kWZSkfttys109ZqIcLQR7 QMPzxXIeX1HupJ6dFgOrATLzUBY lV9KduRUtEXnlY147CIvwNmB8KH DhkmWjX0ZrYJNaqOekLcN6 r4I9Pj3Ul9EcryqvN8DoeTDnRkJ eKnvwGGg5F7ReIgirwFK+PC90YW PeEN14AIt3UHC5gYpwDJev XDUnH0CfmQ1bUbYpGZNiJDMfMre +PHRhYmxlIHdpZHRoPScxMDAlJy NykNoqKL2lYc7fVROrJTSu aDmupEAgTjJns0bsDLYxARylJZ1 wnIhhG6CvwGI6NLSgh1d3Gd22G2 0mW0TqrJA+QPYvwGV3hCX0 lB7wCfUhFoB2RQteN001KxMiqZO sUjtsd6uug1zmuGs7RmF7RGGqgb UyaZtbEMM4v4PeXk32R41o IHdpZHRoPSIxNSUiIHZhbGlnbj0 izN6jYt5+CIZkgBA8kLQ9fT3jKv UfJqE3NZtiQ668VgXydTPm Enwgo6tpo9dixFq9SuIfTQVdpoI ynAefKYL2x8MeQd33D4YnjEkra9 RtUol3wt57pLRkd8F8lED5 O8XxOFGvnvrifYXrfPpaJS5cIAI kfsjxOAOwwG6qXUOaG6h2GmKnMw J7XCnaM4RcgvY4DQLakIFd IUZgjAJYtS0jpvmsc0mmjwajAiN hREPyICs7QNy7TCXglSfxXcZqCK N2FuE2DXL3eKRecK4tnFrn lrnrqG4iDew+RRH7iUIbxLDGMD1 lOjwvdGQ+DZWbQWT8eVsiZVjsLE CkiA4pRUMzX2s1KfRyZmK5 SRhpU1CenaY2PQCzoKKaAAYnrMX BsT6gavaml6npagnjAnSnHUEkFX h2BJk9ITUztRndVnDrBZL8 UzY9WEO8fFMwiO2cuOxoahsegA8 wOyc+RteqiFqjHMC4HNr0Z7AfNj f3VOMbcAszYK3bkDSrDXal Fk1csUnchSslNY8aVCMmsidwc26 2OfEuj8fxHOLaySYcCFcaTCK5S7 7eq9I1QVRlAIUqFPF4dEY5 aJ6lhFtndqlupZXauWzukjFnnUr hFSajYLiiA393XFNirBfpCiZbMD b2D4LiJru2QVVijNprFH0t wAPdHArtNk4erXcprYdrBF1xVVG pothek239KgJon0cyJHFfnXMrEW tqFZP1Y09ne2S0JDAdHNTh XLK0hHT0uU7ycMcmjkjkqEWjgSe cmgBsuNveHAswDRkuI512XRViiX uwOjNhdAm4E2QrHce1BSNk gGfnQU9bhDVoFDalVk5bvSdhlAl vIZ4wVEDzjgehf526LjXzd7wjFS BdoCAsIYgmGZD2N73zy9P0 RXGxCTVlHDF4fSS6tM6hgYolerm gbGVmdDsgdmVydGljYWwtYWxpZ2 46IHRvcDsnPlBhdGllbnQg WMevXXt8K3SmNkwjkPZ+FN03NCM dGE87tWAlvDMlh6sqiXv3StKhMO TiIBY5eMfwPMwjz6IkIOYr O75ssSQif9I9BFDsqBaqiTLbHjN cuNO6jA6cWLnwsfgzo1prbmrnJj wmj6kgyq39xT38Q36yYOcg ZJMoJNAePRXwTWIuqOsvvp1fdD1 wIi8+ECLxnET1qSM5sI8aDZUqMp F0HUpbU583BoKffDMmGhqk g2vdj5xvnUh1ZrV5GQIgmtJftNp uMZZ3d3AtIk83Y86sUVpsBJObJQ WeHLAuGBThbEbgbq5ssF4h Ii8+QUSzmFL5dYO9qK5kMpOzNvT 1OKpfD354EjHyyZIbZlqmZ21zV1 JvdXA+YQVtBhl5FZFprGha WL3wfLHhRVnkBg2kKRJ2JxNuJbP gVDgsE2FdVJUhywnozbrymRW1QK KhEQJezM39Mz2imOeaIKRh jXGEiR9rjkkmh8ecslyzJxGfXGC gGXg4CQa0IYQtyRwyNhZeUJN9Mb R6JXX8lERzwL0wdAvonpzx jC9xW4QePVCewzasKs82sS4cNkF eUiJ4WMtsGjo+RURXQVJEUywgU0 uWCMHBSOtVXk76H6CmNvn6 PVVceEocSP8itAMvUUwmXi7vmSv fqPmjFB0aRTBojfzcVPKkrU0vYO VakQSyuJelDN8dOBRtlexw e706QsEfJWX8OJGggFLwQ3ZvxQ3 mPcEcIBEwSPZjD6FtaKCfBXlqV3 16NBweCbR7YMDjpbOsM4Go WOUliKctWtH6k0M3Fg6kAf6mLh0 lSTg3NG99VI26sPTry2S2vVE0D3 IrXSSjowjxvtupsRR2ILRn ZGNuoO92dMQlZAroBs0cb8K7r97 6LOKyKDHvmD22Ux7yaBchTDShtI DBbF6fhntmq5cwqtjwGvZc TYUjZLu2KBg1ZPCkjVrpHjVfFTO 2QmZ2ULO2gFVldS9lzAsowutlyW 9wOyc+UaXfMKJeaxC1O4Wj Huk5HXFinUisDW5ykGQdTAyeZv2 wkXqnmUwnFJ9gLWThgsjrKMFeiZ 5tPMNwsKIzsSrnCG4nYZAd sezwn295YnHtGCY5XOUzvJTuE1Q jfK0oHrCfULWqJAQcN1NzxKJkHZ hfR368NMgsZiD6JUPyfuVz V5YaWJPfdFeiXdK3e6H5Ic0XDY2 LVLS1Y7NuYma2GOFovXnoMF0gcL WkFJhcSf8dlXobyYzvID8z ZEEtntzrLWTexZ9zQLWlpQKmeGp vHR6lLOVgrmhqa540VoNlVGX4NB VejTYpA4EcwV1fKiNwNRQe AUNiF4UjvBRmMWwuO193MBsgVzG 6IYKpxwXyL7SrYMEdlZdhYaV6j6 I7Hv0MRWuftNX+YR16oj18 G9WpUzscQyd3SWFiWWT1aNA8jM6 bBLMnKWjrf7W3tGJ5P0IowcCylm 0bo8fzDMYzGEkpJ46xmOAn x7A1NBCfjSA1DZDbzMorPuPyiM3 3Oyc+VKUepHmzj3ShIzday9nvv6 uraAf3FeMqJRXfxnMnkFqo XDT1u8HbRd63S99uXUqxDFYzDPZ cYMWcKALwbRlqms3dkY8vSn7+PG BtcHA4sUC6lB4vAmImTlJ0 LKljM376OiIwlVCrBhnew6zhe8t cpWm8AyUcISNcaeRccFltHFW1f5 RjDn47E6EasRika1NiUhn6 yy93yFVgt6W6nUU7C9RaOAPaxno nfZDxeTgsYC6kYMXloooiQCWewI 1fWXTkU5r3MmLaFlZ5SIqi R0DgajC4CWQorAKlRSKkwKQMbR1 hijfnh2lqionrRoWwMKRdIKo8TF x1THBjgOhyNyMvQFM1FpH9 AJY0hFGhcD0mfJemsnuxyE8rFbf +NKa3d8qxqZKpNO6jeZC4HN27HA 48kLKsz4B3vBE2O8XkABNr bmmqslnsnBV3DBSeYZIbdK30Bd7 eyXnlOk2yFTQfRUO3CRLxrLBqW5 GtzQ1gAxRaHDRiAEKuR0Dx vKJdZUemT470HXlfJfD4YYUhwhS lS3AjCLStbXxiDiY6i4H7Fo8OKP 07WQ70AK36uZCsb6Q0eRD7 U9NkLYAtbyccxikppOR2OOXiTYK mkF39Cd4ngEzqFg0bLSQsXVY4QQ ZgtGOjO6VjgI8lPsPhDCRc VUFoV7GqjDBdCHokI239GKofSpE 3YOXlhiOeA8CzIDRryDwtDpV2b4 G7Rr5MHf50QH38SG24eKOn e5S8wVK6X2LnYLVguhkuxeslrVO 6KNOnMXHdfC07Dz1gvLqxPc2yLB WrMDB3ASQnnJZzY1WnyC9t NbQeFKZoOXCjU3KomDMkSMduG49 2XKghIzG1DSMrakOdI0TxVRIldH kzXzQ8s6R2Ya7GAEuqxtv9 N9VbQsapcCB+NM25JZAmFQ80dQL ycWRnp2qmnCn4YiUtADSlXJL1iG snPRkkq0CtCPNbE64xdAEf c2U (more content not included)... Normal [facility] 03-26-2024 eGFR AA >60 Invalid Interpretation Code [facility] Comment on above: Performed By: #### 1 [id number] #### [facility] (DEFAULT) [address] [place] [address] [id number] eGFR Non AA >60 Invalid Interpretation Code [facility] Comment on above: Performed By: #### 1 [id number] #### [facility] (DEFAULT) [address] [place] [address] 22307 Anion gap [Moles/Vol] 11.7 mmol/L Normal 5.0-19.0 [facility] Comment on above: Performed By: #### 1 [id number] #### [facility] (DEFAULT) [address] [place] [address] 95403 Calcium [Mass/Vol] 9.2 mg/dL Normal 8.9-10.3 [facility] Comment on above: Performed By: #### 1 [id number] #### [facility] (DEFAULT) [address] [place] [address] 03238 Chloride [Moles/Vol] 99 mmol/L Low 101-111 [facility] Comment on above: Performed By: #### 1 [id number] #### [facility] (DEFAULT) [address] [place] [address] 26426 CO2 [Moles/Vol] 28 mmol/L Normal 21-32 [facility] Comment on above: Performed By: #### 1 [id number] #### [facility] (DEFAULT) [address] [place] [address] 83270 Creatinine [Mass/Vol] 0.82 mg/dL Normal 0.60-1.30 [facility] Comment on above: Performed By: #### 1 [id number] #### [facility] (DEFAULT) [address] [place] [address] 69231 Glucose [Mass/Vol] 93.0 mg/dL Normal 74.0-118.0 [facility] Comment on above: Performed By: #### 1 [id number] #### [facility] (DEFAULT) [address] [place] [address] 87820 Osmolality 270 mOsm/L Invalid Interpretation Code [facility] Comment on above: Performed By: #### 1 [id number] #### [facility] (DEFAULT) [address] [place] [address] 11725 Potassium [Moles/Vol] 3.7 mmol/L Normal 3.6-5.1 [facility] Comment on above: Performed By: #### 1 [id number] #### [facility] (DEFAULT) [address] [place] [address] 43060 Sodium [Moles/Vol] 135.0 mmol/L Low 136.0-144 . 0 [facility] Comment on above: Performed By: #### 1 [id number] #### [facility] (DEFAULT) [address] [place] [address] Urea nitrogen [Mass/Vol] 12 mg/dL Normal 12-21 [facility] Comment on above: Performed By: #### 1 [id number] #### [facility] (DEFAULT) [address] [place] [address] Urea nitrogen/Creatinine [Mass ratio] 14.6 mg/mg Normal 4.6-16.2 [facility] Comment on above: Performed By: #### 1 [id number] #### [facility] (DEFAULT) [address] [place] [address] Provider Orderson 03-26-2024 Provider Orders [id number] Normal [facility] Coding Summaryon 03-23-2024 Coding Summary HTMLBase 64 ZlsqucajNEd3fDx+PGhlYWQ+PE1 KCJJrD26jsLJiqK2nD6JADEdZQa gwHGQEUGlAZhPwjtLcPG9sjDYrD XJu IC8+IZ3oQIGaBmebvXXtr5C9tYB 1X36rja5nXKcemDO3BRVkMjSgqd lrk7ihhYf9HYegKbgmGsQp BYFfvZ52KER3lR40Gb33hMXnpQN mt8foaQs5IbRsVSVnVPV4rMziET cnu2NiANBjK46rbYIzj1K8 IJYoaFgwwKOdPrDobPJ1vZ7oHKn vxxmvp1msfdbiVmn0an01pBBgd6 U7lLN6W9TqkdE3SXZleSKs FziryBBXnU6pfdwxm5rccetcLiS wEEQdAHx4KJj3NDEqdUabDfJdGK 73XZD7JKAetrNiN2EuDJSs rSofGhK3n7Q2Dm5ZI5WEOzveZ3T NTUFSWTwvdGQ+VC10eh48V3OuOw vmHpz9TFAnSYC1jMT0qK5v UPWfNIekb3I0aMF0J3FbqqFyae2 ih2tvKQVyRTaqC20yyUBib4W7PS PxkXR1OJUizQolVcZjfA08 Oyc+EDKauAgou6OzNybbg4ivd8o wsRa1OcviONEbhiEdkJtwCRY3m3 SvZj4jZDCqmTP2pFK3dV4d MvOrWhX3IBfrV166CqHudPOiUex eJ88sV9BzvIK+JWYwPxi7KNYswR wzCS6fV8RdIPWturodrPEv nSljKV2wDYBysmqaHTPqgE6yVZA oZ0u3MbNxXgR9GZlbN3FoFYCpfy lpFv34rF1gWtNvLwN8XVxw M9RzpyI5XHFbmLIdDCfoJLM0W69 qf9N8DDUiEXVfDOC5oOL8mY0hzI lnbjogbGVmdDsgdmVydGlj NHgbDAcdH111MMDolVomOxTfVPz uZyBEYXRlOiAgMTEvMjYvMjAyND wvdGQ+ADNpDGP1qPadEBOb nCRyRJtnIy2ppTdcfMlmHY0jIDY jhiuzMGBuzM0gPNAgkLQfhOjlFT 6nXLOpnrtcg705WjVnVEF5 OFPrpMAiK3VzdB8jDxKwYRXbBNG kH8WpjFTxNOsrZ288CXavHaW0BN QunvUjE9ScJTXqcPecHpN6 t2W1Le0Ff5ObcwuuN6UnmNQhXuH aXsmhOQe3W9IfXciteEH+PC90YW HfHM98UZd2XSF7iUfnVVun VRPxP7CmtV2oQbFxUTExYTIzNew +PHRhYmxlIHdpZHRoPScxMDAlJy NjyJjtLZ1nTn9sPPEjSHHr rLyukUYgAmCcl1siCWJbVQmoSY6 jjXvlX8HajCW6DJIbb4u6Eq10D3 2sJ6QhdQV+LFJwyAZ2cDB7 fO9qXqVsReO6XKvpM895MpYvmAC nCdbvf0oyv1onhCy8DyR5WUQscv UfaYopPNH4y8VuEb20A49c IHdpZHRoPSIxNSUiIHZhbGlnbj0 lbN1nHj1+JWKqlAW5xVM1aJ6uJf RtClE4AOpsU539SeXgjAUc Fmwtc7iqn1yypSr1JvYqIBTcdtZ sjYjbTNX8x5DfLm15G8RtmXunk1 FnGgr1kw77pUPzs9P4vSC2 O5JaYXYmchkjpNBptJeiSH2gULD fmjyoZZRilJ1rYJPvQ9r8NaOdVq K7IXxaA3WudhE2GIRdsZWi ZZEdvVTPrG7ozyvqy0dnveihCzZ oHBWiXXq8QEo9TYPutFliFqZbOD I1PwR9QZO5uEOznN1nbEgj qaxocS9wWps+SGW3uACksOGFDN5 lOjwvdGQ+YWXmWCU6vHxuHSelHB KmrH8xZDYmH4j0OkSkRoJ6 WCibZ6YurwJ0AMSplJSsNVXweZD CzD2ggsyzg0oqqezhXkVhUFXuGJ a2EHz3ATRqdAbwFqFtBIR9 SgZ5WJJ5jJKcqU3ipDawsrrquR1 wOyc+KctnjCgaRCE9FZz2I5OiWl k0HGBlbCuuVY5nnPVgRKcy Dm8soXwchSaxDR2nBKCcpxwgf17 5NmFbq4mkQEHmjPHdBLhdKDW2N7 4by4I0RLWmYZEwTHQ4eXP9 pI6tcMzjfzwgbVLrpKshctLhjEc qRCpdSDooX503UWLecAliYvCdLF e2R1UaOuc7CLIngGtbCO5g mDEyGUjaJw1xvRvrxVinTA6zOUY ixfwfg507KhYny3feVYZveOCaEW dwSWL7S51pz7M7XTSwCFDu QTM9qOV3mV1ubDxnzjhkkQOvuLp brtZxiQpbZCbhPQirV646MREaiE jqZvXfbQj6R3VsWoo1WIOk yHvpWT6xyBHlAHzaLh9dpVupoFv iNN5kZRExtmrvf999QqYnd8giVN GrgCPxLMmvGNW8M79ss1K5 VBXdRSYmNCN4uUU6iV7gjHyuucw gbGVmdDsgdmVydGljYWwtYWxpZ2 46IHRvcDsnPlBhdGllbnQg UPfvOHy9Z9ShArhfoKP+YB79USN cPU13lQIllCLxh1zujTi6HoRmBZ IrQPR3uTlbWOgtz5MzIGOi R45atGRiy9R4ZCJesDjhiULdAfG hpPB3xG4qLDwusfmvb7atymidKw skv5btkh68pC17K76hIAeq VGWnVIKhVMSfZOSptUpruq0wtJ3 wIi8+NSFarFV9nAO0vC9dNVFvVp B0YHmpB440VtEsyYReYnrt d5lxu9bmyEs5LzS3QNZqrkRejZf yOPF6r8FdHp47Y14lIYnyIRMzCG XzSKIfGGFftJazmp4ucR8y Ii8+AWXvjBP8zPX3qK6eFyAcYbA 1EHgqN240WqRxlSGyJwatZ37iQ1 JvdXA+KKIeRke6KOWlfQbn DG0rmSNgPKrsVt5uVIK8SdMbTzK zUFulU5OtVWYkdcixnutejEK8GB GdBMYcrS95Ue1riBkyBJBp bBIZeY9crqxaq4gmegkbJfQbSEY dECh9ERz3XGIbmGcbLgToYLV8Zo A9RHA8eNDwcK4ryCqtdcmj rP6yZ3GhCLImwzvjIi25cN8yMkA sFaY2MBjgYix+RURXQVJEUywgU0 xGKBPPOCaPKx67X1CjZpm5 SUYcqTeaGV0uvXFfHCxvHb8jwKn pcUimOZ0pCTLzvmyoPFKvhD1sZJ CheUEdvJfbAX5kZTLtspyt u363QwNdSNM2JOXzlTNwE1JvcW8 uJyFzOQJpACXnN6ZieSAhSDarD5 33JWlcYqT1QDUqplPxH7Qi SXLsrIujXnX3y8I8Cz0bBs7sPr1 aRAq2CQ50YK39sAPfd1I1tRQ3S5 QvIEXlqhgecumkxXQ7EEQr RSLauH66tXSbQBrlSx7ou0O9l96 6THLqYEBnrH16Tm5liTceTKMjfE SQtG0azpbua2vwsdohIlGz ARUxXPg1OCv6VHMlvYizJcAqVQS 3VxO9XVS7cQEwzE9meWeinkyxbJ 9wOyc+SqZiARJbblV6S6Uo Vyh2WBFnwMsyIT7xiLAaLSzpSt3 yqPskzElgQT3lVDChfshoMLIxsC 7jMTDseKTwjOkxIL0jGIWg yqcph077GnPgEPP3FKGsnMYfI7B mxU2xDoUwNOZoVRUnA2ZpmKGvHI jbG563MRdcLhP5OKXrfmTw R3FbOHXphUccLgY5v1Z2Mq0DUZ0 HOUY7E7GjTaf5GPWjlAkbQR9xrT JmDKgeYr9ddZfsdBxdGS6u FTIltnvfQJLgiM9bOYZwlJZlhAj dOP5xNQMucybrt764FvPpYJO9OS GlpHPrP3ZetG7nNiJgYYFu FCQqF3CsiKYaYPczG950WUwxHpB 4XBItccUwA8JeTXDsaOhdAhZ7b6 V4Ic5IvMIuK4XmN9h7Y8Pt PjwvdHI+ZH72SMQuQX55oSHnoQD xo4kflYi2JaKqCYRlBOG6iGreMF fgf4OeUOSqM01pbVXhj1E2 XLTocKghzQPmDhVytGJ7rU5sYGx tuasft4cdulsdImzue2ydlk73nV 24I03zPPaoYJJdLMVeENPq HVDnpWzitk5bpB2oCr0+PGNvbCB 7dNJ9aW6uNfSdKbR4GWhyR784Jo TkePCaWbdns9nhu0mupJz0 FhWvTPDaypMkrEonAVX5f5OlYe2 9B66jEGecKLJiAJRrVTDpVHMccC pyhl3dbY2nDc0+HU8om2ir jt16eR45cLL+ESVmCRK5wTdtQQo uSZSllM6gWYcuPdQ6HBLdFyYzwE 42hSHpXPouSd6iqNsqwHhb IH2dHPIvylkrd173AdYpe2svZKO ixSSbRQncQAY5P87aw1W3CDTbQX UwJIF7tPG7lN6poOgqvbne qLNrjBzirmMfoVzkDIctXTynA79 9OGFqdScbGhFsmVBqO7vygyQASX 1lOjwvdGQ+LQAkDNL9kDhv BYerRCMrnU5jIRPxJ7f8TgLlOfH 1PVytI2TngeV6CBPmrXOlDRBanC ZIrY2idrohe5tgmtlbBiQn QSFpGEg2IQq8HQHfrXaaUbSyPMZ 1DiD4MZN6vPNuhA5eaZpdcqgkjY 9wOyc+RklOOjwvdGQ+PHRk LRU8pQqiYRkpRGThyI8zKJEmF4j 3MzAzDiS8GXhfR5CcebY4GYLhdW MbKKFpnCGOdW1mdkeeb5gc uqiuCaTwNBRwZKf2WEd0WWTqjEd aVcBdQZB2AuN5YSU6pDFrjL0pqQ hzcioonU5vZjm+TVJOOjwv dGQ+LLRtWBX0qWslJYjmCPLmqH9 wDTWsC5m5XwQmSoP6KEfyH5Mjke P1UUBalYJdEGVojROJaF5d wgcae4rbscihGyMhOHQfEQa2FGc 7YLFqjRweUxKdXFV0JxJ7HLN7kN EieE8wiTsbcfnlyP8fXpp+ DXV3KMB1WK11OJ41K9TtZjkkdQK ibGU+PHRhYmxlIHdpZHRoPScxMD PfGkWlfKabEH3jHs9xWGPs LWN (more content not included)... [facility] Coding Summary HTMLBase 64 MzipoopePFr4dSo+PGhlYWQ+PE1 ZXQZfJ92kiELiqB6dB6NMCUsVXx icFDQDEDrEOmXwssAoFF5vxNXeK XJu IC8+EH6xCQYrChvaqPQqj3W4qWS 6F29rvs5lCNcbvHE9TNZaMgZgem hex5kifIt4ILshGvpeUkLi YKAnmX89LVA2eQ99Fu01sULjrYJ bg6tcsLa0InDdJUSfAPI1jFkpCQ pmk3OzCBIcF97maWYuc2I8 ZDTruSiqjHCdAyPulWT8mD5aZDv kgcmei9vyasbwZvw2vk30wVQdm2 N9tPN9T4OvanF4BTUnxKPe KpiscHYNiU0wcajiv1girmanOaP xMJQhCJq9FWy2KETcaQwzZfXsDC 51RVC1UMQhzsMvY4PeOTNx rZldJiO4h7B1Jc8DL9GTGgrwQ4G NTUFSWTwvdGQ+UO28us12Y7FvLm yvUtl1GGJdICK5kFA6gE3l GHTwBSjxc6X1sSA5K5NqzkWehi1 au2lrJDKuVHqdN82gwHIxk1K5RW JjaZN7BMBwuVpjLkBqcH22 Oyc+TESnkNwqd1MoItthc7une2n tsHt1RynaZLBaxlIewEvuSBX8a7 RgSt3pXNNxaZU5oAK5pX3x HcRkCdF9UXxjI293HaFiaPZtBam wT05cI1BtyCG+ORUtDue9POGitP gqRV8bF0BsKOJlevhcdUCd rNdaTE3aYDPcxtniVBDcpR8kKFP pP8s8MnKrMeZ3EScrE2NmAUQevf utXa50iH3jUrIbNnY1FAwt G4OoowH0IJWahWZkAIhqMLD9T11 if4S6BBDfXURqQBD6cZJ2zV9gzX lnbjogbGVmdDsgdmVydGlj ZXcjWBlvA478LVOzvUioAmYaLSt uZyBEYXRlOiAgMTEvMjYvMjAyND wvdGQ+GIPjIKT8fSwkCFAu rFWaUYbvFv3pqEoscNjqTP4aHRR qbsuwAVTplH8vFKJfqLJjmHevMT 5yXGGrfotlm944TiPkRKS0 VVXblXJjK1RojU9wSuCmHTRdJCN tR0DoaIJdDYmgM557VRveNzG6SE PpupTvE9UiUGThlGdfHyW0 m1S4Uv8Dx6ZuoinfP1SuhEGtDoU bGyltABh9T4YnPtlpfPH+PC90YW GrFR49KUb3QLX9mWypRLud WHJpV3KurM0wXeOtXZNbXPLyHmy +PHRhYmxlIHdpZHRoPScxMDAlJy GhxAcoNA7jPr9pQMRcLSIv tKlqvPWpFiDqc8laFUQbUCjoHT7 thGsxK2HkrFS1HJLtb3c5Af06N0 7vW6VgcPJ+NWKfqGF5nBG7 iW4iKpIvJrK7LXbuV929NoLsfCD yEwdxg6nor4muhBe5UlU8LJSeko IjtVbqHWR2r2QkSw75Y87x IHdpZHRoPSIxNSUiIHZhbGlnbj0 agL8sQa1+NQWdrNY1lCS9fO4zMf FmMgT9IKlmB753PpHbmVGs Ovxmn0apg8shbBe5JpWiTEZrifC naAnaIQV4z0TbBb19I9WreQtcm8 XuAfu5fg29sFJqi5M2sGQ6 Y1JyTQBaxbgoyLPaxZlbPI1dTWS ulcwmTUMthI6lWTKeC3l7OpLiDc G6GLwwX7BeimP7EEUtpDNg PXVbjHPIjO0mitsxh6pjwuuyBqE bQJBeEKy4OFv0TDVcjNvqPlQqRD D3VqW2TTU7uKJvkR0nwPxl klfhiR0nNzj+KUF0gFJjzAPHXK0 lOjwvdGQ+EKMlBYD7zRovFHzpFF WnfP5cIJLcR6r6KcGjOwW9 BVlyS6QvkyN4JLKhyTMgEQSywHW PqJ5bdxntk8wpccguHcUjLUFdAF d3OXu8FVMwyXtvEmJyOXU3 DeN5NVO5wBSxlI2yrAlntraicB4 wOyc+IornuDviOVD0MFe1M3BnKt o5BIEsfPenBI1yrOWlERwd Xk9pgNhnsQrgOE3nGQDrfbclh82 0KtZkf4usDGNfmFBiEHwmLGK8C8 8rd5N8SVYsKJBuSHP0pJP3 gH1fmLprsojmsAAhwJpmqkEqiUx tKHdaGDqcG671YCYybYqjNpSvAI x6C6HjJcj6IULudHvmYM5f fLTcTRnuTc7wlLtulHumNA0jSKY vqjjid070KvTak7yeKVFciKGfCM niQVP5I01am0L8MDLuDJPv MTF2lYU5uQ6yqOyoaijlxWRwqKs htxMhrGzrQOmnUYyzC650IHZxeX xfWsOfgJl9P1UfXeb0HKSl uZgeRF4usRDkHOayKo7eoOkyzIj rXB4zXOUmabpve883JtZjf8fmFJ RfpOMtYGkpMOM5N54gp1X4 DLPrRIZdVMH6kKZ6hA5oiDkgyvh gbGVmdDsgdmVydGljYWwtYWxpZ2 46IHRvcDsnPlBhdGllbnQg YOznBYf9H1BuUhkagFN+HL11SVO iIN92aQRltGKco0exqGd6DwHnLN KdFUP3jFenIVdjd2AnIUKa J14zmHCrm3G3IKKzfAzgaNSpDfP ijUJ0xB3iWZcloinnv3fqgxedHt zsl0fxwl25kX75K43pFSbd TVHaHFOsADVfAFXqxXhkzg2mxK8 wIi8+BGBnhIC1jUX6iE8wWAAiYj J8PKebM301ZiGeeNKnQszc w1kws0adaOl8AuX1IMZonhVuoQx wCEP1s6UySh47Q34eHBjmNCFqNA HeYUSiZKTjpFwuvk9suC1j Ii8+NOGjqQP3bOD9aO6gPmTqPuD 9JQsaF588MmOezTFtZovnR33nK3 JvdXA+RXXhOiv4NSFxvUeb LV9naOKxAQqtTx3gSNW6UwJsDhA eXQehR7CmLYIwayucihrecWF5BT CaMPTqtK31Or5cbMaiJRAa lWBUuE3tqksox8hfcxygZkAuNUF yEJe3QLh4NMNjeCrtVcJsXPK4Au D4YWW3rSBiyE8tcPccuahq wI3cB4CbYEVmaonhTd65yR3nQoF sCyA9JXquAlr+RURXQVJEUywgU0 bIZYETQTxVPe88X8NbQfb9 DBQtoVivFD7nxSDhHJdcPr5cjCc qtFfoJC3sRNDslpxvCSZiiA4oPX RqqOJyySfqIY5mXTAzyweo a485SgBpEUV5HZNnhKWzB5ZbeS3 hKoXhJTDgOPAqR0KpmIFrMUlwV6 07FZsyRxY2XZAtpcMwJ5Iq SFCraYpkJxV7b4C9Ta2lVl1nMb8 bRBd4GN09SI70kQGch1D9sJI5J6 NtWJVccqeqxkaqgHO8GLRa FFIesV81lUZwVLlrHv9uj5Y6q36 9WTUpTCTetJ51Ff0tmUneQWRxuP IJtI8xyetnl6uhsgtdLjQb AUUiSQi5MUe3SELwcHsjJkYhIRH 0SbI4AHH9rWRbrC2lgKdgjsvhdO 9wOyc+MpEhHEVhyrY9U2Od Ugc8SDIhxEosRS2gwRLePOmlZt3 cbZbzjDetOF7dADCnbiqqDSAmaL 0vZWOdhFWcxXtnHE6yBWAc ijusl719BaIrSBN1WFPwjWTwT3Q tzI5nIeGoVMEyFVJuD6XyoBZmTO flW485WLbcMaI7RAFnbcPs Y9HbRDYwcNnjAvL1m0Z0Vw0AHR1 MPYB3C2QbTys3XUJdnWkiQZ0sjV GcNOvwLq9iyPfjgDffJF6o TGStacsgEXJajP2gQKBaoOZltGx yZZ7nDUJjzqqyy353AsIdPIT4MQ LndOZvP7CqlW6nIfTeTGVi FQQdO2RkvFRuOFeqY198CRvqDyD 6FWFmseZxI8BwOKYhvLyqFsU5s1 W4Kk3ZWIfqrZZ+LT83ic74 M5YqVrunCgm9TXXnOSD5tUA9nC0 pRYFiVWdje6F7qPE0I2DbgaJeei 8sd2atGEAvABydD32knFSl j4M2RSSwvXJ2DVQfuJwhNbJiyH7 3Oyc+SCCygYpgx4IoJjxcu5hgb8 jizMz9GwZrNSQqtmOwrAyb DCL4i9QkPo83O98sOLpmUMIfSDN dUDKrPVKnaWnnhm8buX7cXe4+PG BpjAP6bDM5nW4xBkAiVaX2 TNgaQ098CpUgcJDcSnadr6fes0r yeCe0IiFeUKLupkDczIbfREK4x0 BzUn19X6AkjCold9KaRsn5 jq97oFIrg0X5cNA1T3OcVTTwwgp qxVTkaTkqIE7wKCJlfepyLLRnzD 1vYETwA0t8XrOkArT6JPkf Q7FdzkL3GGRoiFSlNJXkfWHJaN5 oqbsac6sfkiccLzRgWCPaPHx0JL u4AWYkvVgmKlUqVNM5QcU5 SBR9lDWgfY5otBmmodjwiJ7tFch +ISt7v8zupSMzCK6qxVG9OJ59EC 64lDFde7E8aES9G7NxAFNd durkgdtcpIU7VUXvJBJkeH80Oc1 kcLjqOf4vKBGoEAC4SRSyyJMvR4 MntI4tEwKoBDZsQBByL7Xq cPYfAMszP415GIbtMyU5ZBVnrgE zQ0OeHZAgvAzjDyP6l0U1Id4EOM 21SF01LJ11fHBmg4Z1qOF7 G7NjFTGitwncklcdmBC9BRCcAXH jfM04Jz6seEjpPp6jKLYmLJY1AA HmlFBfK5OmjC1qHvAdNIMv RIAqM9CibGGgDHicM360ZVdaKiT 0DUSkudJhU3QyBHIsyBtoIsZ1j0 C3Ox6JYr87FH07YD62gQOh f2D9sDV1M5WrWZHoyjquivoyaRB 2HRYrACXxpF36Yf9oqRguRf7dNT AtHXU4EOGxzLNeL2XstJ7b QkTaLUApZGPhJ0OmlJJeASnkW01 5JIpeNtR4MKAlqtAhZ9WeJKHxsG riTkE6m3N5Da2OVHccvag7 O6JyEbksbAH+DC71ASZrON91oRA lwKIxx6pewCf1OlFnEGYpQDF1bI phVBlko4DyMHMoB40ycZLp c2U (more content not included)... [facility] Consent Formson 03-17-2024 Consent Forms [id number]#1.00OTGTIFF [facility] Lipid Panel Standardon 03-17 Cholesterol [Mass/Vol] 153.0 mg/dL Normal 66.0-200.0 [facility] Comment on above: Performed By: #### 1 [id number] ####[facility] (DEFAULT)[address] [place] [address] 83545 Cholesterol in HDL [Mass/Vol] 48 mg/dL Normal 40-71 [facility] Comment on above: Performed By: #### 1 [id number] ####[facility] (DEFAULT)[address] [place] [address] 09830 Cholesterol in LDL [Mass/Vol] 98 mg/dL Normal 1-100 [facility] Comment on above: Performed By: #### 1 [id number] ####[facility] (DEFAULT)[address] [place] [address] 76236 Cholesterol.total/Chol esterol in HDL [Mass ratio] 3.1 {ratio} Normal 0.0-4.5 [facility] Comment on above: Performed By: #### 1 [id number] ####[facility] (DEFAULT)[address] [place] [address] 57058 Triglyceride [Mass/Vol] 38.0 mg/dL Normal 0.0-150.0 [facility] Comment on above: Performed By: #### 1 [id number] ####[facility] (DEFAULT)[address] [place] [address] 08580 VLDL. 8 mg/dL Normal 5-40 [facility] Comment on above: Performed By: #### 1 [id number] ####[facility] (DEFAULT)[address] [place] [address] 58635 Provider Orderson 03-17-2024 Provider Orders [id number]#1.00OTGTIFF Normal [facility] TSH w/ Reflex to FT4on 03-17 TSH Qn 3.02 m[IU]/L Normal 0.45-5.33 [facility] Comment on above: Performed By: #### 1 [id number], 7493550, 8496979022, 6526875498, 8260195, 3905011, 185309107, 1985135627, 2604153, 91402091 ####[facility] (DEFAULT)[address] [place] [address] 23317 .Auto Diff 1on 03-16-2024 Auto [place] % 7 % Normal 1-12 [facility] Comment on above: Performed By: #### 1 [id number], 2723593, 0729962482, 8998968130, 9440029, 2950090, 808221080, 1041784889, 9760496, 03518750 #### [facility] (DEFAULT) [address] [place] [address] 63611 Baso Abs# 0.0 x10 Normal 0.0-0.2 [facility] Comment on above: Performed By: #### 1 [id number], 4615483, 4972678860, 7155321143, 5905903, 5798813, 663747550, 1872724810, 4171376, 20860857 #### [facility] (DEFAULT) [address] [place] [address] 46982 Basophils/100 WBC (Bld) 0.7 % Normal 0.2-2.0 [facility] Comment on above: Performed By: #### 1 [id number], 6118615, 7349789585, 9774459165, 8819310, 8754502, 649550813, 0453254831, 1801743, 69036748 #### [facility] (DEFAULT) [address] [place] [address] 98375 Eos Abs# 0.0 x10 Normal 0.0-0.4 [facility] Comment on above: Performed By: #### 1 [id number], 1253417, 6813450198, 4763150410, 0196733, 2081861, 404251992, 9483713329, 1457885, 31805371 #### [facility] (DEFAULT) [address] [place] [address] 51117 Eosinophils/100 WBC (Bld) 0.5 % Low 0.9-4.0 [facility] Comment on above: Performed By: #### 1 [id number], 2269973, 2872472109, 4038634604, 0505541, 8854875, 476559989, 4781749528, 9708873, 13264836 #### [facility] (DEFAULT) [address] [place] [address] 42199 Lymph Abs# 2.2 x10 Normal 1.3-2.9 [facility] Comment on above: Performed By: #### 1 [id number], 2529261, 0967808641, 8875652390, 9529165, 5271155, 353372635, 5600253923, 3870512, 52753144 #### [facility] (DEFAULT) [address] [place] [address] 17319 Lymphocytes/100 WBC (Bld) 31 % Normal 14-48 [facility] Comment on above: Performed By: #### 1 [id number], 6378615, 9190943057, 6386518045, 0338662, 6228705, 929671755, 2120942676, 2827623, 38052712 #### [facility] (DEFAULT) [address] [place] [address] 15665 [place] Abs# 0.5 x10 Normal 0.0-0.8 [facility] Comment on above: Performed By: #### 1 [id number], 0948023, 4269593554, 1784111570, 2388122, 1412908, 172687693, 5979594306, 1841012, 91009995 #### [facility] (DEFAULT) [address] [place] [address] 54511 Neut Abs# 4.4 x10 Normal 1.5-9.2 [facility] Comment on above: Performed By: #### 1 132177854, 0310403, 4634732381, 0552551393, 1612949, 8418995, 617469353, 7379532185, 2026892, 35568328 #### [facility] (DEFAULT) [address] [place] [address] 88168 Neutrophils/100 WBC (Bld) 61 % Normal 44-88 [facility] Comment on above: Performed By: #### 1 [id number], 0241513, 5417998855, 9366503099, 4746281, 6260119, 983103656, 9143288423, 1098791, 67632718 #### [facility] (DEFAULT) [address] [place] [address] 60580 BNP.on 03-16-2024 Internal Control Pass Normal [facility] Comment on above: Performed By: #### 1 [id number], 7810584, 2792031013, 0818247419, 7466575, 1297522, 964428924, 0645045509, 5020151, 62448782 ####[facility] (DEFAULT)[address] [place] [address] 47262 Natriuretic peptide B (Bld) [Mass/Vol] pg/mL Normal 0.0-100.0 [facility] Comment on above: Result Comment: BNP results greater than 100 pg/mL are considered abnormal and suggestive of patients with CHF. Higher BNP concentrations measured in the first 72 hours after an acute coronary syndorme are associated with an increased risk of , myocardial infarction, and CHF. Performed By: #### 1 438874270, 8951271, 7341475344, 2055613992, 8391087, 9761438, 974062273, 6628832812, 2508700, 04713325 ####[facility] (DEFAULT)[address] [place] [address] CBC w/ Auto Diffon Erythrocyte distribution width (RBC) [Ratio] 12.6 % Normal 11.5-15.0 [facility] Comment on above: Performed By: #### 1 [id number], 1655772, 8741514123, 5489973749, 8558840, 4234296, 630945470, 6884343742, 8459844, 54802883 #### [facility] (DEFAULT) [address] [place] [address] 71422 Hematocrit (Bld) [Volume fraction] 47.1 % High 33.7-40.4 [facility] Comment on above: Performed By: #### 1 675353475, 5328609, 9085413099, 4483265329, 9182475, 3396754, 411893291, 8155928432, 0528304, 64921371 #### [facility] (DEFAULT) [address] [place] [address] 58553 Hemoglobin (Bld) [Mass/Vol] 16.2 g/dL High 11.3-15.9 [facility] Comment on above: Performed By: #### 1 010758808, 8611640, 7654430723, 7395790347, 0605972, 0896947, 717998695, 1513055691, 9960976, 68374899 #### [facility] (DEFAULT) [address] [place] [address] 82271 Man Diff? Auto Invalid Interpretation Code [facility] Comment on above: Performed By: #### 1 099543422, 5456104, 2986376484, 4846843477, 3385784, 2666435, 582997224, 6280566343, 8094053, 20093073 #### [facility] (DEFAULT) [address] [place] [address] 56168 MCH (RBC) [Entitic mass] 31 pg Normal 24-34 [facility] Comment on above: Performed By: #### 1 393303018, 3677602, 8750094902, 4256979861, 9521427, 7173841, 584791949, 9653047118, 7872462, 30440529 #### [facility] (DEFAULT) [address] [place] [address] 48547 MCHC (RBC) [Mass/Vol] 34 g/dL Normal 26-37 [facility] Comment on above: Performed By: #### 1 618473246, 3857502, 8839688518, 7071639836, 8480037, 8847294, 208572978, 5682629846, 3621744, 77501570 #### [facility] (DEFAULT) [address] [place] [address] 35536 MCV (RBC) [Entitic vol] 91 fL Normal 81-100 [facility] Comment on above: Performed By: #### 1 666252459, 8266934, 7763922573, 3256736881, 0996735, 7029485, 978055033, 9988847321, 7720399, 27258612 #### [facility] (DEFAULT) [address] [place] [address] 31018 Platelet 297 x10 Normal 138-427 [facility] Comment on above: Performed By: #### 1 527837089, 2152972, 1369028892, 2925950400, 3885153, 0573346, 177236771, 7061354896, 7567421, 74676371 #### [facility] (DEFAULT) [address] [place] [address] Platelet mean volume (Bld) [Entitic vol] 9.5 fL Normal 6.3-10.2 [facility] Comment on above: Performed By: #### 1 773350777, 6031474, 3418033977, 8780260547, 9067011, 8411254, 663094235, 0221645105, 8564454, 07088242 #### [facility] (DEFAULT) [address] [place] [address] RBC 5.18 x10 Normal 3.70-5.30 [facility] Comment on above: Performed By: #### 1 949017899, 3240402, 8282155755, 8828604863, 1078707, 6112859, 220922408, 4268621323, 4858257, 17233248 #### [facility] (DEFAULT) [address] [place] [address] WBC 7.2 x10 Normal 3.5-10.5 [facility] Comment on above: Performed By: #### 1 669801930, 1628622, 7408508866, 8386712830, 8520523, 2392794, 888527131, 9186992114, 9092706, 55247100 #### [facility] (DEFAULT) [address] [place] [address] CMP Standardon 03-16-2024 Breakpoint Chem Normal [facility] Comment on above: Performed By: #### 1 622477057, 5830851, 1959527161, 6054636505, 5329998, 5545422, 806996833, 7788831479, 0571653, 44001673 #### [facility] (DEFAULT) [address] [place] [address] eGFR Non AA >60 Invalid Interpretation Code [facility] Comment on above: Performed By: #### 1 025658746, 6806779, 8819363362, 8820384299, 4547117, 6882124, 392820635, 8536174311, 8127438, 38531655 #### [facility] (DEFAULT) [address] [place] [address] 36532 eGFR AA >60 Invalid Interpretation Code [facility] Comment on above: Performed By: #### 1 900266310, 2556591, 3674570344, 7895505649, 9756277, 6055653, 556956034, 2816034763, 3527923, 09913700 #### [facility] (DEFAULT) [address] [place] [address] 78654 Albumin [Mass/Vol] 4.7 g/dL Normal 3.5-5.0 [facility] Comment on above: Performed By: #### 1 964975465, 0773815, 9011779944, 3890641533, 5914365, 8928033, 885864846, 0193552337, 7970712, 10145920 #### [facility] (DEFAULT) [address] [place] [address] 45567 Albumin/Globulin [Mass ratio] 1.4 {ratio} Normal 1.4-2.6 [facility] Comment on above: Performed By: #### 1 [id number], 1477916, 8016880222, 8636670971, 6135472, 3976600, 415341877, 7609672385, 3395822, 76549146 #### [facility] (DEFAULT) [address] [place] [address] 89388 Alk Phos 76 IU/L Normal 32-91 [facility] Comment on above: Performed By: #### 1 [id number], 0467277, 1108932347, 2819125845, 0820910, 0457755, 038840218, 3796770046, 3935590, 85271739 #### [facility] (DEFAULT) [address] [place] [address] 38621 ALT [Catalytic activity/Vol] 22.0 U/L Normal 14.0-54.0 [facility] Comment on above: Performed By: #### 1 [id number], 8341523, 2965177656, 2606369009, 8781025, 5048130, 614154451, 4827503254, 3949592, 30464725 #### [facility] (DEFAULT) [address] [place] [address] 64651 Anion gap [Moles/Vol] 19.9 mmol/L High 5.0-19.0 [facility] Comment on above: Performed By: #### 1 [id number], 6409902, 6462900875, 6639678479, 8879827, 0983470, 623742228, 9316131000, 7220345, 81180791 #### [facility] (DEFAULT) [address] [place] [address] 55424 AST [Catalytic activity/Vol] 29 U/L Normal 15-41 [facility] Comment on above: Performed By: #### 1 [id number], 9185713, 9125080785, 9600969230, 4949504, 8399837, 100129941, 1189484503, 3590578, 93033897 #### [facility] (DEFAULT) [address] [place] [address] 25483 Bili Total 0.8 mg/dL Normal 0.3-1.2 [facility] Comment on above: Performed By: #### 1 455914559, 6938936, 8050072134, 0715203504, 0146851, 2708101, 448202681, 0644125702, 0190400, 73428315 #### [facility] (DEFAULT) [address] [place] [address] 42781 Calcium [Mass/Vol] 9.4 mg/dL Normal 8.9-10.3 [facility] Comment on above: Performed By: #### 1 101191004, 1797251, 8364921332, 7427679747, 7210923, 6414109, 431254971, 3071484234, 7084392, 70524159 #### [facility] (DEFAULT) [address] [place] [address] 71167 Chloride [Moles/Vol] 100 mmol/L Low 101-111 [facility] Comment on above: Performed By: #### 1 [id number], 1089421, 4561569735, 5935185479, 7057402, 1042328, 501367168, 2623172748, 6986877, 51330949 #### [facility] (DEFAULT) [address] [place] [address] 02443 CO2 [Moles/Vol] 16 mmol/L Low 21-32 [facility] Comment on above: Performed By: #### 1 430013399, 2226307, 2474662318, 0786888732, 6919238, 0288496, 433420445, 2910556676, 2971748, 11657521 #### [facility] (DEFAULT) [address] [place] [address] Creatinine [Mass/Vol] 0.97 mg/dL Normal 0.60-1.30 [facility] Comment on above: Performed By: #### 1 865680826, 2593416, 0615895487, 1126094050, 1649875, 7978076, 054059995, 2805301592, 0459837, 82828177 #### [facility] (DEFAULT) [address] [place] [address] Globulin (S) [Mass/Vol] 3.3 g/dL Normal 1.5-4.3 [facility] Comment on above: Performed By: #### 1 120976069, 8454275, 3924121265, 5147827192, 8820677, 3913897, 626273657, 4100998591, 7185073, 52465285 #### [facility] (DEFAULT) [address] [place] [address] 12655 Glucose [Mass/Vol] 114.0 mg/dL Normal 74.0-118.0 [facility] Comment on above: Performed By: #### 1 327879905, 6843036, 3072843929, 5540281769, 3602979, 5604100, 259110976, 9218637419, 8307332, 51930877 #### [facility] (DEFAULT) [address] [place] [address] 84836 Osmolality 268 mOsm/L Invalid Interpretation Code [facility] Comment on above: Performed By: #### 1 758545625, 4637791, 4875990942, 7352917464, 0252805, 8716527, 421822346, 2858758046, 8852479, 60339930 #### [facility] (DEFAULT) [address] [place] [address] 39663 Potassium [Moles/Vol] 2.9 mmol/L Low 3.6-5.1 [facility] Comment on above: Performed By: #### 1 620006461, 7646425, 4761959935, 9448228564, 3774886, 0101361, 558532232, 4038679174, 2980788, 69392707 #### [facility] (DEFAULT) [address] [place] [address] 20623 Protein [Mass/Vol] 8.0 g/dL Normal 6.5-8.1 [facility] Comment on above: Performed By: #### 1 997448589, 8290926, 9412585346, 7538090663, 0198160, 4548509, 794332921, 7133991415, 3930994, 62964497 #### [facility] (DEFAULT) [address] [place] [address] 25295 Sodium [Moles/Vol] 133.0 mmol/L Low 136.0-144 . 0 [facility] Comment on above: Performed By: #### 1 631015342, 9983657, 1296435037, 0088596581, 8421991, 6734187, 822826867, 0381543856, 7157444, 36357655 #### [facility] (DEFAULT) [address] [place] [address] 44886 Urea nitrogen [Mass/Vol] 15 mg/dL Normal 8-26 [facility] Comment on above: Performed By: #### 1 761401152, 6570156, 9748677545, 8766392467, 2133215, 3200209, 221421175, 8796847979, 5648633, 89243685 #### [facility] (DEFAULT) [address] [place] [address] 21730 Urea nitrogen/Creatinine [Mass ratio] 15.4 mg/mg Normal 4.6-16.2 [facility] Comment on above: Performed By: #### 1 816976163, 1708873, 4893428467, 6845257436, 2418438, 8679580, 240734203, 6113796497, 7583231, 33791159 #### [facility] (DEFAULT) [address] [place] [address] PE Chest w/ Contraston CT PE [...] MD 03/16/24 10:36 p Technologist: NAT Normal [facility] ED Clinical Summaryon 2023 ED Clinical Summary [facility] - Emergency Department [address] [place], [place] [id number] ED Clinical Summary PERSON INFORMATION Name: SAIMA YANCEY Age: 28 Years Sex: FEMALE : 1995 MRN: Acct#: Visit Reason: Anxiety; Chest pressure; SHAKING, NUMBNESS, CHEST PAIN Arrival: 03/16/2024 17:36:13 Discharge: 03/16/2024 22:54:00 LOS: 000 05:18 Check In: 03/16/2024 17:36:13 Checkout:03/16/2024 22:54:00 Address: [address] [place], [place] [address] PCP: Amanda Samuel CNP PROVIDER INFORMATION Provider Role Assigned Unassigned Emma GiffordP ED PA 03/16/2024 17:38:18 Armida Johns DIRECTOR SUPPLIER QUALITY Nurse 03/16/2024 17:53:56 Ailyn Dixon DIRECTOR SUPPLIER QUALITY Nurse 03/16/2024 19:05:43 Ayad Campos DO ED [...] initially seen and evaluated by my physician plant attendant or assistant operator. Please see her note for full H&P [...] Resolved Disease caused by 2019 novel coronavirus ([id number]): Onset on 05/03/2021 at 26 years. Resolved. Comments: 05/03/2021 LEGAL PROCESS SPECIALIST 18:07 LEGAL PROCESS SPECIALIST - SYSTEM Problem added by Rule (IC_COVID19_AUTO_PROBLEM) [...] HI Respiratory Ra (more content not included)... [facility] ED Note - Physicianon 2023 ED Note - Physician Patient: ZACK YANCEY Age: 28 years Sex: FEMALE : [...] initially seen and evaluated by my physician plant attendant or assistant operator. Please see her note for full H&P [...] Resolved Disease caused by 2019 novel coronavirus ([id number]): Onset on 05/03/2021 at 26 years. Resolved. Comments: 05/03/2021 LEGAL PROCESS SPECIALIST 18:07 LEGAL PROCESS SPECIALIST - SYSTEM Problem added by Rule (IC_COVID19_AUTO_PROBLEM) [...] mmHg HI Diastolic Blood Pressure 100 mmHg DC 03/16/2024 22:14 EST Peripheral Pulse Rate 115 [...] 18:30 EST Peripheral Pulse Rate 119 bpm DC 03/16/2024 18:30 EST Systolic Blood Pressure 131 mmHg HI Diastolic Blood Pressure 96 mmHg HI Mean Arterial Pressure, Cuff 108 mmHg HI Mean Arterial Pressure Cuff 113 mmHg 03/16/2024 18:00 EST Heart Rate Monitored 116 bpm HI Respiratory Rate 20 br/min SpO2 100 % 03/16/2024 18:00 EST Peripheral Pulse Rate 118 bpm DC 03/16/2024 18:00 EST Systolic Blood Pressure 134 mmHg HI Diastolic Blood Pressure 91 mmHg HI Mean Arterial Pressure, Cuff 105 mmHg HI Mean Arterial Pressure Cuff 109 mmHg 03/16/2024 17:54 EST Peripheral Pulse Rate 130 bpm HI Heart Rate Monitored 129 bpm HI Respiratory Rate 19 br/min (more content not included)... Normal [facility] ED Note-Nursingon 03-16-2024 ED Note-Nursing Pt ambulatory [...] reach. very anxious on the cart Normal [facility] ED Patient Summaryon 024 ED Patient Summary [facility] - Emergency Department [address] [place] [address] PATIENT DISCHARGE INSTRUCTIONS Patient Information Name: SAIMA YANCEY Age: 28 Years Date of : 1995 Reason For Visit: Anxiety; Chest pressure; SHAKING, NUMBNESS, CHEST PAIN Arrival Time: 03/16/2024 17:36:13 Primary Care Physician: Amanda Samuel CNP Attending Physician: Jaylen Jiang MD Comment: Visit Diagnosis: Diagnoses This Visit Anxiety ([id number]) Chest heaviness (R07.89) Chest pressure ([id number]) Hypokalemia (E87.6) Tachycardia (R00.0) The Pharmacy at [...] alcohol and/or drug addiction problems; contact the [facility] 18/11 Crisis Hotline -Text 3OGIC vx [phone]. If you received any narcotics, sedation, or [...] legal documents With: Address: When: Amanda Samuel [address] [place] [address] Business (1) Within 2 to 4 days Comments: Call for follow up appointment Return if symptoms worsen Medication Information: The exam and treatment you received today in the [facility] Emergency Department were for an urgent problem and are not intended as complete care. It is important for you to follow up with a doctor, nurse practitioner, or physician?s plant attendant or assistant operator for ongoing care. If your symptoms become [...] so we can reach you if necessary. [facility] has provided you with a complete list of medications post discharge. Please inform your meter tester primary/provider of your visit and for further instruction on these medications. Any specific questions regarding your chronic medications and dosages should be discussed with your primary care physician(s) and/or pharmacist. New Medications The Pharmacy at [facility], [address] [place] [address] [phone], [phone] potassium chloride (Potassium Chloride (Eqv-K-Tab) 10 mEq [...] (Inserted Im (more content not included)... Normal [facility] Extra Redon 03-16-2024 Tube Collected Yes Invalid Interpretation Code [facility] Comment on above: Performed By: #### 1 [id number], 1765883, 0685038851, 2285627444, 2038416, 6421780, 285712036, 0988654639, 7582183, 60830397 #### [facility] (DEFAULT) [address] [place] [address] Magnesiumon 03-16-2024 Magnesium [Mass/Vol] 1.95 mg/dL Normal 1.80-2.50 [facility] Comment on above: Performed By: #### 1 [id number], 8864642, 5153210007, 2401523013, 1847758, 8890204, 406081416, 8532382493, 8071446, 54163715 ####[facility] (DEFAULT)[address] [place] [address] 72918 PTon 03-16-2024 INR Coag (PPP) [Relative time] 1.02 {INR} Normal 0.91-1.11 [facility] Comment on above: Performed By: #### 1 387983406, 4230131, 1289561026, 9079030593, 1958117, 4985826, 088886214, 5302607048, 9799388, 76693643 ####[facility] (DEFAULT)[address] [place] [address] 04958 PT 10.6 second(s) Normal 9.7-11.8 [facility] Comment on above: Performed By: #### 1 [id number], 8130980, 2144610970, 2847631737, 4370502, 8437731, 185205073, 5508050888, 7967923, 73902274 ####[facility] (DEFAULT)[address] [place] [address] 25925 Test Urine 1on U Preg Negative [facility] Comment on above: Performed By: #### 3 39760086 ####[facility] (DEFAULT)[address] [place] [address] 49075 U Preg Internal Control Pass [facility] Comment on above: Performed By: #### 3 [id number] ####[facility] (DEFAULT)[address] [place] [address] 42067 TnI HSon 03-16-2024 Troponin I High Sensitivity <2.3 Normal <=15.0 [facility] Comment on above: Performed By: #### 1 015303314, 8757554, 5726306422, 0002457840, 9844502, 7788012, 770366173, 2261261802, 8458322, 60431442 ####[facility] (DEFAULT)[address] [place] [address] 75864 UA Tdodm6ty 03-16-2024 UA Amorph. 4+ [facility] Comment on above: Order Comment: Urina lysis Microscopic order added on by Owt[employer] Expert Rules system. Performed By: #### 5 0600343, [id number] ####[facility] (DEFAULT)[address] [place] [address] 38321 UA Bacteria Trace Normal [facility] Comment on above: Order Comment: Urina lysis Microscopic order added on by [employer] Expert Rules system. Performed By: #### 5 7758180, [id number] ####[facility] (DEFAULT)[address] [place] [address] 17912 UA RBC None Seen [facility] Comment on above: Order Comment: Urina lysis Microscopic order added on by [employer] Expert Rules system. Performed By: #### 5 8855402, [id number] ####[facility] (DEFAULT)[address] [place] [address] UA Squam Epi Few [facility] Comment on above: Order Comment: Urina lysis Microscopic order added on by Discern Expert Rules system. Performed By: #### 5 7774078, [id number] ####[facility] (DEFAULT)[address] [place] [address] 25060 UA WBC 0-2 [facility] Comment on above: Order Comment: Urina lysis Microscopic order added on by Discern Expert Rules system. Performed By: #### 5 6442561, [id number] ####[facility] (DEFAULT)[address] [place] [address] UA w Culture if Ind Standard on 03-16-2024 Breakpoint UA [facility] Comment on above: Performed By: #### 5 0733202, [id number] ####[facility] (DEFAULT)[address] [place] [address] Color (U) Yellow [facility] Comment on above: Performed By: #### 5 8990632, 3541322348 ####[facility] (DEFAULT)[address] [place] [address] Culture? Not Indicated Invalid Interpretation Code [facility] Comment on above: Result Comment: Resu lt created by rule GL_MAGR_ADD_UA_CULT1 Result created by rule GL_MAGR_ADD_UA_CULT Result created by rule GL_MAGR_ADD_UA_CULT1 Performed By: #### 5 7275465, [id number] ####[facility] (DEFAULT)[address] [place] [address] Glucose (U) [Mass/Vol] Negative [facility] Comment on above: Performed By: #### 5 9109198, [id number] ####[facility] (DEFAULT)[address] [place] [address] Ketones Ql (U) 40 [facility] Comment on above: Performed By: #### 5 2466696, [id number] ####[facility] (DEFAULT)[address] [place] [address] Micro? Indicated Invalid Interpretation Code [facility] Comment on above: Result Comment: Resu lt created by rule GL_MAGR_ADD_UA_MICRO Performed By: #### 5 6405482, [id number] ####[facility] (DEFAULT)[address] [place] [address] UA Bilirubin Negative Normal [facility] Comment on above: Performed By: #### 5 0462812, 7458652259 ####[facility] (DEFAULT)[address] [place] [address] UA Blood Negative Normal NEGATIVE [facility] Comment on above: Performed By: #### 5 1025258, 6682662433 ####[facility] (DEFAULT)[address] [place] [address] UA Clarity CLOUDY Abnormal CLEAR [facility] Comment on above: Performed By: #### 5 1492873, 2485361627 ####[facility] (DEFAULT)[address] [place] [address] UA Leuk Est Negative Normal NEGATIVE [facility] Comment on above: Performed By: #### 5 8393945, [id number] ####[facility] (DEFAULT)[address] [place] [address] 03039 UA Nitrite Negative Normal NEGATIVE [facility] Comment on above: Performed By: #### 5 9803833, [id number] ####[facility] (DEFAULT)[address] [place] [address] 12802 UA pH 8.0 Normal 5-8 [facility] Comment on above: Performed By: #### 5 5037477, [id number] ####[facility] (DEFAULT)[address] [place] [address] 03304 UA Protein Negative Normal NEGATIVE [facility] Comment on above: Performed By: #### 5 2756170, 1174975545 ####[facility] (DEFAULT)[address] [place] [address] 59899 UA Spec Grav 1.020 Normal 1.001-1.[address] [place] [address] Comment on above: Performed By: #### 5 1195559, [id number] ####[facility] (DEFAULT)[address] [place] [address] [place] [address] UA Urobilinogen 1.0 mg/dL Normal 0.2-1.0 [facility] Comment on above: Performed By: #### 5 9961082, [id number] ####[facility] (DEFAULT)[address] [place] [address] Urine Source Clean Catch Normal [facility] Comment on above: Performed By: #### 5 4809295, [id number] ####[facility] (DEFAULT)[address] [place] [address] 53743 hCG Quantitativeon hCG Quantitative <0.6 Normal 0.0-0.6 [facility] Comment on above: Result Comment: Post -Menopausal Reference Range is: 0.1-11.6 mIU/mL Performed By: #### 1 733814331, 7708305, 8505542420, 6721851598, 1479286, 9153505, 213843997, 4241798114, 7931237, 31664465 ####[facility] (DEFAULT)[address] [place] [address] 92255 Provider Orderson 03-12-2024 Provider Orders [id number][facility] Results [id number][facility] QuantiFERON-TB Gold Pluson QuantiFERON-TB Gold Plus Negative Invalid Interpretation Code Negative [facility] Comment on above: Result Comment: No r esponse to M tuberculosis antigens detected. Infection with M tuberculosis is unlikely, but high risk individuals should be considered for additional testing (ATS/IDSA/CDC Clinical Practice Guidelines, 2017). The reference range is an Antigen minus Nil result of <0.35 IU/mL. Chemiluminescence immunoassay methodology Performed At: [address] [id number] Catherine Best PhD Ph:[phone] Performed By: #### 1 [id number], 32271125, [id number] ####[facility] (DEFAULT)[address] [place] [address] 40817 QuantiFERON Incubation Incubation performed. Inv alid Interpretation Code [facility] Comment on above: Result Comment: Perf ormed At: [address] [id number] Catherine Best PhD Ph:[phone] Performed By: #### 1 [id number], 71906091, [id number] ####[facility] (DEFAULT)[address] [place] [address] 16827 HBSab Qnt LCon 02-14-2024 Hep B Surf Ab Quant LC 11.3 mIU/mL Invalid Interpretation Code Immunity>1 0 [facility] Comment on above: Result Comment: Stat us of Immunity Anti-HBs Level Inconsistent with Immunity 0.0 - 10.0 Consistent with Immunity >10.0 Performed At: [address] [id number] Catherine Best PhD Ph:[phone] Performed By: #### 1 [id number], 21849901, [id number] ####[facility] (DEFAULT)[address] [place] [address] 82009 Measles/Mumps/Rubella Immuni ty LCon 02-14-2024 Mumps Abs, IgG LC <9.0 Low Immune >10.9 [facility] Comment on above: Result Comment: Nega tive <9.0 Equivocal 9.0 - 10.9 Positive >10.9 A positive result generally indicates past exposure to Mumps virus or previous vaccination. Performed At: [address] [id number] Catherine Best PhD Ph:[phone] Performed By: #### 1 [id number], 10043696, [id number] ####[facility] (DEFAULT)[address] [place] [address] 43255 Rubella Antibodies, IgG LC 1.95 index Invalid Interpretation Code Immune >0.99 [facility] Comment on above: Result Comment: Non- immune <0.90 Equivocal 0.90 - 0.99 Immune >0.99 Performed By: #### 1 803910506, 49098420, [id number] ####[facility] (DEFAULT)[address] [place] [address] Rubeola Ab, IgG, EIA LC 39.7 AU/mL Invalid Interpretation Code Immune >16.4 [facility] Comment on above: Result Comment: Nega tive <13.5 Equivocal 13.5 - 16.4 Positive >16.4 Presence of antibodies to Rubeola is presumptive evidence of immunity except when acute infection is suspected. Performed By: #### 1 038849755, 99039189, [id number] ####[facility] (DEFAULT)[address] [place] [address] Nicotine Metabolite, Urine L Con 02-14-2024 Cotinine LC Negative Invalid Interpretation Code [id number] [facility] Comment on above: Result Comment: Perf ormed At: [facility] [address] [facility], [place] [id number] Apolonia Shepherd PhD Ph:[phone] Performed By: #### 2 [id number], [id number] ####[facility] (DEFAULT)[address] [place] [address] Provider Orderson 02-13-2024 Provider Orders [id number]#1.00OTGTIFF Normal [facility] PROGESTERONEon 07-17-2022 Progesterone <0.1 Normal [facility] Comment on above: Result Comment: Foll icular phase 0.1 - 0.9 Luteal phase 1.8 - 23.9 Ovulation phase 0.1 - 12.0 First trimester 11.0 - 44.3 Second trimester 25.4 - 83.3 Third trimester 58.7 - 214.0 Postmenopausal 0.0 - 0.1 Performed By: #### P SPRING #### [facility] [address] [address] [address] Aaron Flores PREG QUANT HCGon 07-15-2022 HCG QUANT <1 Normal [facility] Comment on above: Performed By: #### P REGQNT #### [facility] [address] [place] [address] Dr. Aaron Flores HCG RANGE SEE BELOW Normal [facility] Comment on above: Result Comment: 5-50 0.2-1 WEEK 50-500 1-2 WEEKS 100-5,000 2-3 WEEKS 500-10,000 3-4 WEEKS 1,000-50,000 4-5 WEEKS 10,000-100,000 5-6 WEEKS 15,000-200,000 6-8 WEEKS 10,000-100,000 2-3 MONTHS Performed By: #### P REGQNT #### [facility] [address] [place] [address] Dr. Aaron Flores PREG QUANT HCGon 06-05-2022 HCG QUANT <1 [facility] Comment on above: Performed By: #### P REGQNT #### [facility] [address] [place] [address] Dr. aAron Flores HCG RANGE SEE BELOW Normal [facility] Comment on above: Result Comment: 5-50 0.2-1 WEEK 50-500 1-2 WEEKS 100-5,000 2-3 WEEKS 500-10,000 3-4 WEEKS 1,000-50,000 4-5 WEEKS 10,000-100,000 5-6 WEEKS 15,000-200,000 6-8 WEEKS 10,000-100,000 2-3 MONTHS Performed By: #### P REGQNT #### [facility] [address] [place] [address] Dr. Aaron Flores PROGESTERONEon 05-08-2022 Progesterone 9.0 ng/mL [facility] Comment on above: Result Comment: Foll icular phase 0.1 - 0.9 Luteal phase 1.8 - 23.9 Ovulation phase 0.1 - 12.0 First trimester 11.0 - 44.3 Second trimester 25.4 - 83.3 Third trimester 58.7 - 214.0 Postmenopausal 0.0 - 0.1 Performed By: #### P ROGES #### [facility] [address] [place] [address] Dr. Aaron Flores PREG QUANT HCGon 05-06-2022 HCG QUANT 1 mIU/mL Normal [facility] Comment on above: Performed By: #### P REGQNT #### [facility] [address] [place] [address] Dr. Aaron Flores HCG RANGE SEE BELOW Normal [facility] Comment on above: Result Comment: 5-50 0.2-1 WEEK 50-500 1-2 WEEKS 100-5,000 2-3 WEEKS 500-10,000 3-4 WEEKS 1,000-50,000 4-5 WEEKS 10,000-100,000 5-6 WEEKS 15,000-200,000 6-8 WEEKS 10,000-100,000 2-3 MONTHS Performed By: #### P REGQNT #### [facility] [address] [place] [address] Dr. Aaron Flores PROGESTERONEon 03-10-2022 Progesterone <0.1 Normal [facility] Comment on above: Result Comment: Foll icular phase 0.1 - 0.9 Luteal phase 1.8 - 23.9 Ovulation phase 0.1 - 12.0 First trimester 11.0 - 44.3 Second trimester 25.4 - 83.3 Third trimester 58.7 - 214.0 Postmenopausal 0.0 - 0.1 Performed By: #### P ROGES #### [facility] [address] [place] [address] Dr. Aaron Flores PROGESTERONEon 01-04-2022 Progesterone 0.2 ng/mL Normal [facility] Comment on above: Result Comment: Foll icular phase 0.1 - 0.9 Luteal phase 1.8 - 23.9 Ovulation phase 0.1 - 12.0 First trimester 11.0 - 44.3 Second trimester 25.4 - 83.3 Third trimester 58.7 - 214.0 Postmenopausal 0.0 - 0.1 Performed By: #### P BUDES #### [facility] [address] [place] [address] Dr. Aaron Flores CBC AUTO DIFFon 09-14-2021 BASO # 0.0 103/ul Normal 0.0-0.1 [facility] Comment on above: Performed By: #### C BC #### [facility] [address] [place] [address] Dr. Aaron Flores Basophils/100 WBC (Bld) 0.4 % Normal 0.2-2.0 [facility] Comment on above: Performed By: #### C BC #### [facility] [address] [place] [place] [address] Dr. Aaron Flores EO # 0.1 103/ul Normal 0.0-0.7 [facility] Comment on above: Performed By: #### C BC #### [facility] [address] [place] [address] Dr. Aaron Flores Eosinophils/100 WBC (Bld) 1.1 % Normal 0.9-7.0 [facility] Comment on above: Performed By: #### C BC #### [facility] [address] [place] [address] Dr. Aaron Flores Erythrocyte distribution width (RBC) [Ratio] 11.9 % Normal 11.0-15.0 [facility] Comment on above: Performed By: #### C BC #### [facility] [address] [place] [address] Dr. Aaron Flores Hematocrit (Bld) [Volume fraction] 46.0 % Normal 36.0-48.0 [facility] Comment on above: Performed By: #### C BC #### [facility] [address] [place] [address] Dr. Aaron Flores Hemoglobin (Bld) [Mass/Vol] 15.1 g/dL Normal 12.0-16.0 [facility] Comment on above: Performed By: #### C BC #### [facility] [address] [place] [address] Dr. Aaron Flores IG # 0.00 10e3/ul Normal 0.00-0.03 [facility] Comment on above: Performed By: #### C BC #### [facility] [address] [place] [address] Dr. Aaron Flores IG % 0.0 % Normal 0.0-0.5 [facility] Comment on above: Performed By: #### C BC #### [facility] [address] [place] [address] Dr. Aaron Flores LYMPH # 1.7 103/ul Normal 1.2-3.8 [facility] Comment on above: Performed By: #### C BC #### [facility] [address] [place] [address] Dr. Aaron Flores Lymphocytes/100 WBC (Bld) 31.9 % Normal 20.5-60.0 [facility] Comment on above: Performed By: #### C BC #### [facility] [address] [place] [address] Dr. Aaron Flores MANUAL DIFF REQ NO Normal [facility] Comment on above: Performed By: #### C BC #### [facility] [address] [place] [address] Dr. Aaron Flores MCH (RBC) [Entitic mass] 29.7 pg Normal 26.7-34.0 [facility] Comment on above: Performed By: #### C BC #### [facility] [address] [place] [address] Dr. Aaron Flores MCHC (RBC) [Mass/Vol] 32.8 g/dL Normal 29.9-35.2 [facility] Comment on above: Performed By: #### C BC #### [facility] [address] [place] [address] Dr. Aaron Flores MCV (RBC) [Entitic vol] 90.6 fL Normal 81.0-99.0 [facility] Comment on above: Performed By: #### C BC #### [facility] [address] [place] [address] Dr. Aaron Flores MONO # 0.3 103/ul Normal 0.3-0.8 [facility] Comment on above: Performed By: #### C BC #### [facility] [address] [place] [address] Dr. Aaron Flores Monocytes/100 WBC (Bld) 5.4 % Normal 1.7-12.0 [facility] Comment on above: Performed By: #### C BC #### [facility] [address] [place] [address] Dr. Aaron Flores NEUT # 3.3 103/ul Normal 1.4-6.5 [facility] Comment on above: Performed By: #### C BC #### [facility] [address] [place] [address] Dr. Aaron Flores Neutrophils/100 WBC (Bld) 61.2 % Normal 43.0-75.0 [facility] Comment on above: Performed By: #### C BC #### [facility] [address] [place] [address] Dr. Aaron Flores Platelet mean volume (Bld) [Entitic vol] 11.9 fL Normal 9.5-13.5 [facility] Comment on above: Performed By: #### C BC #### [facility] [address] [place] [address] Dr. Aaron Flores PLT 182 103/ul Normal 150-450 [facility] Comment on above: Performed By: #### C BC #### [facility] [address] [place] [address] Dr. Aaron Flores RBC 5.08 106/ul Normal 4.20-5.40 [facility] Comment on above: Performed By: #### C BC #### [facility] [address] [place] [address] Dr. Aaron Flores WBC 5.4 103/ul Normal 4.0-11.0 [facility] Comment on above: Performed By: #### C BC #### [facility] [address] [place] [address] Dr. Aaron Flores PREG QUANT HCGon 09-14-2021 HCG QUANT 1 mIU/mL Normal [facility] Comment on above: Performed By: #### P REGQNT #### [facility] [address] [place] [address] Dr. Aaron Flores HCG RANGE SEE BELOW Normal [facility] Comment on above: Result Comment: 5-50 0-1 WEEK 40-300 1-2 WEEKS 100-1,000 2-3 WEEKS 500-6,000 3-4 WEEKS 5,000-200,000 1-2 MONTHS 10,000-100,000 2-3 MONTHS 3,000-50,000 2ND TRIMESTER 1,000-50,000 3RD TRIMESTER Performed By: #### P REGQNT #### [facility] [address] [address] [address] Aaron Flores Covid-19 PCR ([facility])on 08-26 SARS-CoV-2 (COVID-19) RNA ROBINA+probe Ql (Unsp spec) Not detected Normal NOT DETECTED [facility] Comment on above: Result Comment: This test is not yet approved or cleared by the [place] FDA. When there are no FDA-approved or cleared tests available, and other criteria are met, FDA can make tests available under an emergency access mechanism called an Emergency Use Authorization (EUA). The EUA for this test is supported by the [place] [employer] of Health and Human Service's (HHS's) declaration [...] SARS-CoV-2. Performed By: #### P SPRING #### [facility] [address] [place] [address] Dr. Aaron Flores PAP ACOG PANEL 2: 21 to 29on 08-27-2021 . . Normal [facility] Comment on above: Performed By: #### P SPRING #### [facility] [address] [place] [address] Dr. Aaron Flores Age Gdln ACOG Testing 23- Normal [facility] Comment on above: Performed By: #### P SPRING #### [facility] [address] [place], [place] [id number] Dr. Aaron Flores DIAGNOSIS: Comment Normal [facility] Comment on above: Result Comment: NEGA TIVE FOR INTRAEPITHELIAL LESION OR MALIGNANCY. Performed By: #### P SPRING #### [facility] [address] [place], [place] [id number] Dr. Aaron Flores Methodology: Comment Normal [facility] Comment on above: Result Comment: This liquid based ThinPrep(R) pap test was screened with the use of an image guided system. Performed By: #### P SPRING #### [facility] [address] [place] [address] Dr. Aaron Flores Note: Comment Normal [facility] Comment on above: Result Comment: The Pap smear is a screening test designed to aid in the detection of premalignant and malignant conditions of the uterine cervix. It is not a diagnostic procedure and should not be used as the sole means of detecting cervical cancer. Both false-positive and false-negative reports do occur. . Performed By: #### P SPRING #### [facility] [address] [place] [address] Dr. Aaron Flores Performed by: Comment Normal [facility] Comment on above: Result Comment: Larissa Lopez, Supervisory Machining Manager (ASCP) Performed By: #### P SPRING #### [facility] [address] [place] [address] Dr. Aaron Flores Reflex Criteria: Comment [facility] Comment on above: Result Comment: The HPV DNA reflex criteria were not met with this specimen result therefore, no HPV testing was performed. . Performed By: #### P SPRING #### [facility] [address] [place] [address] Dr. Aaron Flores Specimen adequacy: Comment [facility] Comment on above: Result Comment: Sati sfactory for evaluation. Endocervical and/or squamous metaplastic cells (endocervical component) are present. Performed By: #### P SPRING #### [facility] [address] [place] [address] Dr. Aaron Mcfarland 04-11-2017 CNOV Office Visit (EXPNOL) -------SAIMA YANCEY ([id number]) 1995 FDate Time Provider Cbpzehtkjk45/15/17 7:00 PM JAZMIN NIEVES) EX[facility]OL During your visit today, we recorded the following information about you: Temperature Pulse Blood pressure Weight 98.2 degrees 98/minute 122/67 104.3 kgJazmin PHILLIP Nieves 04/11/2017 7:35 PM SignedHPI Comments: [...] provided by the patient. No speech language specialist was used.Review of SystemsConstitutional: Negative for fever.HENT: Negative for congestion.Respiratory: Negative for cough.Blood pressure 122/67, pulse 98, temperature 36.8 ?C (98.2 ?F), temperaturesource Oral, weight 104.3 kg (230 lb), last menstrual period 04/21/2016, notcurrently .Physical ExamConstitutional: She is oriented to person, place, and time and well-developed,well-nourish ed, and in no distress.HENT:Head: Normocephalic and atraumatic.Mouth/Throat: Uvula is midline, oropharynx is clear and moist and mucousmembranes are normal. Oral lesions (aphthous ulcer noted at R lower gum line)present. No dental abscesses or lacerations.Pulmonary/Chest : Effort normal.Neurological: She is alert and oriented [...] pain right side of mouth/gum area x fridayPrry Visit Diagnosis:Oral aphthous ulcer [K12.0]Order(s):benzocaine (ORABASE, BENZOCAINE,) [...] 7-10 days on average and can re-occur NILA BritoCPrescriptions ordered this encounter Disp Refills Start End BENZOCAINE 20 % MUCOSAL PASTE 11.9* 0 04/11/2017 Sig: Apply pea sized amount to affected area 4 times daily as needed for painLevel of Service: EST PATIENT VISIT LEVEL 3 [[id number]]Disposition: Return if symptoms worsen or fail to improve.Follow-up and Disposition History RecordedEncounter Number: [id number] Status:Closed by JAZMIN NIEVES PA-C on 04/11/17 [facility] PROGRESSon 04-11-2017 PROGRESS HNO ID: [id number] thor: Jazmin Rosa) Sevenervice: (none)Author Type: Physician AssistantType: Progress NotesFiled: 04/11/2017 7:35 PMNote Text:HPI Comments: [facility]- mouth issue HPI- Saima Yancey is a 22 year old female who presents to the [facility] with concerns of R lower gum pain [...] provided by the patient. No speech language specialist was used.Review of SystemsConstitutional: Negative for fever.HENT: Negative for congestion.Respiratory: Negative for cough.Blood pressure 122/67, pulse 98, temperature 36.8 ?C (98.2 ?F),temperature source Oral, weight 104.3 kg (230 lb), last menstrual caydhe8804/21/2016, not currently .Physical ExamConstitutional: She is oriented to person, place, and time andwell-developed, well-nourished, and in no distress.HENT:Head: Normocephalic and atraumatic.Mouth/Throat: Uvula is midline, oropharynx is clear and moist and mucousmembranes are normal. Oral lesions (aphthous ulcer noted at R lower gumline) present. No dental abscesses or lacerations.Pulmonary/Chest : Effort normal.Neurological: She is alert and oriented [...] foods until ulcer resolveArmida Nieves PA-C Normal [facility] CNOVon 03-29-2017 CNOV Office Visit (EXPNOL) -------SAIMA YANCEY ([id number]) 1995 [facility] Time Provider Odfxvktqko68/2/17 8:35 AM YAAKOV RIDLEY (SUSANA) EXPNOL During [...] oriented to person, place, and time and well-developed,well-nourish ed, and in no distress. Vital signs are [...] ICD10: N92.6- test negative- Follow up with ESTIMATING MANAGER/PCP if irregular menses continues- HCG QUAL [...] the person should be evaluated by an sales strategy manager.Contact lens wearers ? People who wear contact lenses should be evaluated by [facility] provider before treatment begins; this is to [...] of eye drops or ointment before returning [facility]. This treatment helps to prevent [...] areavailable without a prescription in most pharmacies. Preservative-freepreparatio ns are more expensive and are necessary only [...] improve within twoweeks, an examination with an sales strategy manager may be recommended.CONJUNCTIVITIS PREVENTIONBacterial and viral conjunctivitis [...] Visit Diagnosis:Irregular menses [N92.6]Order(s):HCG QUAL UR B/O [[id number]] Order #: [id number] tobramycin (TOBREX) 0.3 % ophthalmic solutionUse 1-2 [...] the person should be evaluated by an sales strategy manager. Contact lens wearers ? People who wear [...] within two weeks, an examination with an sales strategy manager may be recommended. CONJUNCTIVITIS PREVENTION Bacterial and [...] End TOBRAMYCIN 0.3 % EYE DROPS 1 Keaotn* 0 03/29/2017 Route: RIGHT EYE Sig: Use 1-2 Drops in the right eye every 6 hours.Medications Discontinued During This Encounter tobramycin (TOBREX) 0.3 % ophthalmic* 1 Keaton* 0 08/12/2016 03/29/2017 Route: LEFT EYE Sig: Use 1-2 Drops in the left eye every 4 hours for 7 days. Disc: Reason for discontinue is not on file. Status:Closed by YAAKOV RIDLEY CNP on 03/29/17 [facility] PROGRESSon 03-29-2017 PROGRESS HNO ID: [id number] thor: Yaakov (Paper Sorter) STEPHON RidleyService: (none)Author Type: Nurse PractitionerType: Progress [...] ICD10: N92.6- test negative- Follow up with ESTIMATING MANAGER/PCP if irregular menses continues- HCG QUAL UR B/Maya Ridley CNP Normal [facility] CNOVon 01-14-2017 CNOV Office Visit ([facility]) -------SAIMA YANCEY ([id number]) 1995 FDate Time Provider Department01/14/17 9:00 AM JAMES JONES) [facility] During your visit today, we recorded the following information about you: Pulse Blood pressure 94/minute 120/77Barbara Roque Jones PA-C 01/14/2017 10:01 AM [facility] Pain Management Follow Up VisitS2016 - 9:14 AMSUBJECTIVE:Saima Yancey a 21 year old [facility], accompanied by self only, for a follow up appointment for RightKnee pain.The pain is located in the right knee pain and does not radiate.Started 2 years ago, was not directly related to trauma, and symptoms have beenpersistent.Characterize d as pulsating, radiating and throbbingPain is constantCurrently [...] habitsGENITOURINARY: No history of dysuria, frequency or incontinenceMUSCULOSKELETAL : Positive for joint pain: bilateral knee painNEUROLOGIC:Negative for focal numbness or weakness, headaches and dizziness orsyncope.PREVIOUS TREATMENTS IN THE LAST SIX MONTHSActive conservative therapy in the last six months (see below) 1. Physical therapy:Yes 2. Home exercise program after PT: No 3. Occupational therapy: No 4. A physician supervised home exercise program (HEP): No 5. State Appellate Clerk: NoPassive conservative therapy in the last six months (see below) 1. Medical devises: No 2. Acupuncture: No 3. Tens unit: No 4. Prescription pain medication: Tramadol 5. NSAIDS: NoDo you fell safe at home? YesRisk assessment at risk due to fall: NONEKalie Daniel [facility] 2016 - Time: 9:20 AMThe subjective information: including chief complaint, past medical history andreview of systems, was explored in detail with the patient and edited as neededand is complete.[facility] Examination:BP 120/77 Pulse 94 SpO2 97% LMP 04/21/2016General: Overweight, well appearing, alert, in no acute distressSkin: skin color, texture, turgor normal, no rashes or lesionsHEENT: normocephalic, atraumatic, sclera non-ictericCardiovascular:R egular rate and rhythmLungs: Respirations even and non-labored.Musculoskeletal : Extremities: Right knee - tenderness with palpation [...] 2017 by Masood Jones PA-C- Ran via [employer] web site - 2 scripts for Tramadol [...] and verbalized understanding.ISIDRO Cantu-CSept2016Referring Provider: AGAPITO TORRES [[id number]]Allergies As of Date: 01/14/2017(No Known Allergies)Date Reviewed: 12/11/2016Reviewed by: Tamiko Crews) ADEN Gray - Fully AssessedReason for Visit: [...] by JAMES JONES PA-C on 01/14/17 Normal [facility] PROGRESSon 01-14-2017 PROGRESS HNO ID: [id number] thor: James Nevarez (Phillip) Bennettervice: (none)Author Type: Physician AssistantType: Progress NotesFiled: 01/14/2017 10:01 AMNote Text:[facility] Follow Up VisitSept2016 - 9:14 AMSUBJECTIVE:Saima Yancey a 21 year old presents to [facility] PainManagement Department, accompanied by self only, for [...] habitsGENITOURINARY: No history of dysuria, frequency or incontinenceMUSCULOSKELETAL : Positive for joint pain: bilateral knee painNEUROLOGIC:Negative for focal numbness or weakness, headaches anddizziness or syncope.PREVIOUS TREATMENTS IN THE LAST SIX MONTHSActive conservative therapy in the last six months (see below) 1. Physical therapy:Yes 2. Home exercise program after PT: No 3. Occupational therapy: No 4. A physician supervised home exercise program (HEP): No 5. State Appellate Clerk: NoPassive conservative therapy in the last six months (see below) 1. Medical devises: No 2. Acupuncture: No 3. Tens unit: No 4. Prescription pain medication: Tramadol 5. NSAIDS: NoDo you fell safe at home? YesRisk assessment at risk due to fall: NONEKalie María [facility] 2016 - Time: 9:20 AMThe subjective information: including chief complaint, past medicalhistory and review of systems, was explored in detail with the patient andedited as needed and is complete.ISIDRO Cantu-[facility]2016Physical Examination:BP 120/77 Pulse 94 SpO2 97% LMP 04/21/2016General: Overweight, well appearing, alert, in no acute distressSkin: skin color, texture, turgor normal, no rashes or lesionsHEENT: normocephalic, atraumatic, sclera non-ictericCardiovascular:R egular rate and rhythmLungs: Respirations even and non-labored.Musculoskeletal : Extremities: Right knee - tenderness with palpation [...] 2016 by James Jones PA-C- Ran via [employer] web site - 2 scripts for Tramadol [...] G89.29) Chronic pain of right knee (primary encounterdiagnosis)(M25.562 ) Acute pain of left kneePLAN:1) Schedule a 2nd Right knee genicular nerve - inf good results for ashort period of time consider RFA2) Recommend follow up with orthopaedics regarding new left knee pain.3) RTC 4 weeks after procedure.The above plan and management options were discussed at length withpatient. Patient is in agreement with the above and verbalizedunderstanding.ISIDRO Tijerina-CSeptember 2016 Normal [facility] CNDSNOTEon 12-23-2016 CNDSNOTE Discharge Note (enc) (PTFVGE) -------SAIMA YANCEY ([id number]) 1995 FDate Time Provider Department12/23/16 TAMIKO SHIELDS (PT) PTFVGE During your visit today, we recorded the following information about you:Tamiko Shields, PT 12/23/2016 6:52 PM SignedBU[facility]PHYSICAL [facility]ERAPY [...] furtherrecommendation and has not returned for further PT.[place] in home exercise program. PARTIALLY METPatient will [...] Status:Closed by TAMIKO SHIELDS on 12/23/16 Normal [facility] PROGRESSon 12-23-2016 PROGRESS HNO ID: [id number] thor: Tamiko (Pt) Gregore: (none)Author Type: Physical TherapistType: Progress NotesFiled: 12/23/2016 6:52 PMNote Text:[facility]ICAL THERAPY DISCONTINUANCE OF CAREPlan of Care Period:Initial Evaluation Date: 09/09/2016Last Visit Date: 10/07/2016Therapy Program: The following is a summary of the interventions providedfor this episode of care; HEP, Individual PT, Modalities and Therapeuticexercise.Assessm ent:The following is the goal status:As of last session on 10/07/2016. Patient was to return to MD for furtherrecommendation and has not returned for further PT.[place] in home exercise program. PARTIALLY METPatient will [...] orscheduled additional follow-up appointments.Tamiko Shields, PT Normal [facility] HISTORY PHYSICALon 7 HISTORY PHYSICAL HNO ID: [id number] thor: [place] Blue ([place])Service: Pain ManagementAuthor Type: [...] MEDICAL HISTORYDiagnosis Date- NEGATIVE MEDICAL HISTORYPAST SURGICAL IYNPJOJ72/2017: DANDC (MISSED AB 1ST TRIMESTER)No date: NONEPrior [...] 11, 2016 : 2:13 PM PAGER: Normal [facility] OPERATIVE NOon 12-11-2016 OPERATIVE NO HNO ID: [id number] thor: Agapito Solanoice: Pain ManagementAuthor Type: PhysicianType: Operative ReportFiled: 12/11/2016 3:24 PMNote Text:Patient Name Medical Record #Saima Yancey [id number] of : 1995Admit Date: December 11, 2016Sex / Age: female/21 year oldDischarge Date: December 11, 2016Date: December 11, 2016Attending Physician: GAVINO Alvarezervice: OPERATIVE REPORTLOG ID: [id number]/Procedure Date: 12/11/2016Incision/Procedure Start Time: 3:12 PMIncision Close/Procedure End Time: 3:19 PMPREOPERATIVE DIAGNOSIS: Osteoartharitis right KneePOSTOPERATIVE DIAGNOSIS: SameNAME OF OPERATION: right Genicular nerve block under fluoroscopicguidance.SURGEO N: Agapito Torres MDASSISTANT: None.ANESTHESIA: Moderate sedation and [...] 2 mL of a bupivacaine 0.5% and Ksuiuvw95.33 mg was injected at each of the [...] home in stable condition.Myke Alvarez 2016 [facility]) -------SAIMA YANCEY ([id number]) 1995 [facility] Time Provider Department11/18/16 10:20 AM AGAPITO TORRES [facility] During your visit today, we recorded the following information about you: Pulse Blood pressure 77/minute 117/73Agapito Torres MD 11/18/2016 2:12 PM [facility] Pain Management Initial EvaluationJuly 2016 - 11:03 AMThis appointment was requested by Self, for my medical opinion regarding? theevaluation and management of the patient's Saima Yancey problems, and myfinal recommendations will be communicated to the requesting health careprovider by way of the shared medical record for internal providers or lettervia the [employer] for external providers.SUBJECTIVE:Saima Yancey a 21 year old presents to [facility] Pain ManagementDepartment, accompanied by self only, was [...] MEDICAL HISTORYDiagnosis Date- NEGATIVE MEDICAL HISTORYPAST SURGICAL DNWPDZJ02/2017: DANDamp;C (MISSED AB 1ST TRIMESTER)No date: NONESocial [...] Negative for chest pain, leg swelling and palpitationsGASTROINTESTINA L: No nausea, vomiting, or diarrhea and Negative for abdominaldiscomfort, blood in stools or black stools or change in bowel habitsGENITOURINARY: No history of dysuria, frequency or incontinenceGYN: Negative for abnormal vaginal bleeding, abnormal vaginal dischargeMUSCULOSKELETAL: Positive for joint pain: right kneeNEUROLOGIC:Positive for numbness or tingling of the right footSKIN:Negative for lesions, rash, and itching.PSYCHIATRIC: Positive for sleep disturbance:HEMATOLOGIC/LYM PHATIC/IMMUNOLOGIC:Negative for prolonged bleeding, bruisingeasily or swollen nodes.ENDOCRINE: [...] supervised home exercise program (HEP): No 5. State Appellate Clerk: NoPassive conservative therapy lasting 6 weeks in [...] Torres M.D.November 18, 2016Referring Provider: JORDI JACKSON [[id number]]Allergies As of Date: 11/18/2016(No Known Allergies)Date Reviewed: [...] Status:Closed by AGAPITO TORRES MD on 11/18/16 [facility] HOSPon 11-18-2016 HOSP Patient:Emilee Yancey by LMRN: [...] for the following basenames: K,HCTProgress Notes ([facility]):Agapito Torres MD 11/18/2016 2:12 PM [facility] Pain Management Initial EvaluationJuly 2016 - 11:03 AMThis appointment was requested by Self, for my medical opinion regarding? theevaluation and management of the patient's Saima Yancey problems, and myfinal recommendations will be communicated to the requesting health careprovider by way of the shared medical record for internal providers or lettervia the [employer] for external providers.SUBJECTIVE:Saima Yancey a 21 year old [facility], accompanied by self only, was [...] MEDICAL HISTORYDiagnosis Date- NEGATIVE MEDICAL HISTORYPAST SURGICAL VDTKAKJ28/2017: DANDC (MISSED AB 1ST TRIMESTER)No date: NONESocial [...] Negative for chest pain, leg swelling and palpitationsGASTROINTESTINA L: No nausea, vomiting, or diarrhea and Negative for abdominaldiscomfort, blood in stools or black stools or change in bowel habitsGENITOURINARY: No history of dysuria, frequency or incontinenceGYN: Negative for abnormal vaginal bleeding, abnormal vaginal dischargeMUSCULOSKELETAL: Positive for joint pain: right kneeNEUROLOGIC:Positive for numbness or tingling of the right footSKIN:Negative for lesions, rash, and itching.PSYCHIATRIC: Positive for sleep disturbance:HEMATOLOGIC/LYM PHATIC/IMMUNOLOGIC:Negative for prolonged bleeding, bruisingeasily or swollen nodes.ENDOCRINE: [...] supervised home exercise program (HEP): No 5. State Appellate Clerk: NoPassive conservative therapy lasting 6 weeks in [...] Torres M.D.November 18, 2016Previous VersionProgress Notes ([facility]):Nick Kaur Ma 11/11/2016 9:57 AM SignedI called Saima Yancey on November 11, 2016 at 9:55 AM. Left message for patientto call the office. new patient letter sent out also.She was advised of the following:Dear Mr./Mrs/Ms. yancey, This is a follow up phone call regarding yourappointment with Dr. torres. [facility] at [...] message, Letter sent out on11/11/16.Nick Kaur Ma [facility] PROGRESSon 11-18-2016 PROGRESS HNO ID: [id number] thor: Agapito Mayer: (none)Author Type: PhysicianType: Progress NotesFiled: 11/18/2016 2:12 PMNote Text:[place] [facility] Initial EvaluationJuly 2016 - 11:03 AMThis appointment was requested by Self, for my medical opinion regarding?the evaluation and management of the patient's Saima Yancey problems,and my final recommendations will be communicated to the requesting healthcare provider by way of the shared medical record for internal providersor letter via the [employer] for external providers.SUBJECTIVE:Saima Yancey a 21 year old presents to [facility] PainManagement Department, accompanied by self only, was [...] MEDICAL HISTORYDiagnosis Date- NEGATIVE MEDICAL HISTORYPAST SURGICAL IXBZJJJ76/2017: DANDC (MISSED AB 1ST TRIMESTER)No date: NONESocial [...] Negative for chest pain, leg swelling and palpitationsGASTROINTESTINA L: No nausea, vomiting, or diarrhea and Negative forabdominal discomfort, blood in stools or black stools or change in bowelhabitsGENITOURINARY: No history of dysuria, frequency or incontinenceGYN: Negative for abnormal vaginal bleeding, abnormal vaginal dischargeMUSCULOSKELETAL: Positive for joint pain: right kneeNEUROLOGIC:Positive for numbness or tingling of the right footSKIN:Negative for lesions, rash, and itching.PSYCHIATRIC: Positive for sleep disturbance:HEMATOLOGIC/LYM PHATIC/IMMUNOLOGIC:Negative for prolonged bleeding,bruising easily or swollen nodes.ENDOCRINE: [...] supervised home exercise program (HEP): No 5. State Appellate Clerk: NoPassive conservative therapy lasting 6 weeks in [...] is in agreement with the above and verbalizedunderstanding.Brian nk you Dr. Dr. Jordi Jackson for allowing me to participate in Jeniffer Yancey's care.Agapito Torres M.D.November 18, 2016 [facility] -------SAIMA [facility]ANCEY ([id number]) 1995 [facility] Department11/11/16 AGAPITO TORRES [facility] During your visit today, we recorded [...] FOR* Right knee pain [M25.561] INVALID FOR*Letter [facility] Pain [id number], [place] [address]Nwddhu: [phone]: [phone] 2016Dear Ms. Saima Yancey,This is a reminder letter regarding your appointment with Melissa Altman M.D. at [facility] Pain Management Department on 10/19/16 at 9:40am [...] you have previously been seen by a [facility] Pain Management provider you will need to [...] with your currentprescribing physician.Thank you for you cooperation,[facility] Pain Management TeamEncounter Number: [id number] Status:Closed by NICK KAUR MA on 11/11/16 Normal [facility] CNOVon 11-06-2016 CNOV Office Visit (ORMIDD) -------SAIMA YANCEY ([id number]) 1995 FDate Time Provider Department11/06/16 1:20 PM [...] today.Imaging: Magnetic Resonance Imaging from [facility] is personallyreviewed by me and demonstrates no significant abnormal findings. She doeshave evidence of possible edema in her infrapatellar fat pad at the lateralaspect on my read. Her patella is fairly centered with very minimal lateraldisplacement.Impress ion/plan: Saima Yancey is a 21 year old [...] me on an as-needed basis only.Jordi Jackson [facility] Provider: JOSE HASSAN [[id number]]Allergies As of Date: 11/06/2016(No Known Allergies)Date Reviewed: 11/06/2016Reviewed by: Ronda PalaciosReason for Visit: Right Knee Pain [1209]Primary Visit Diagnosis:Patellofemoral stress syndrome of right knee [M22.2X1] Other Visit Diagnosis:Chronic pain of right knee [M25.561, G89.29]Order(s):CONSULT TO PAIN MGT ANESTHESIA [19990803] Order #: [id number]: 1Prescriptions as of 11/06/2016 Sig: DICLOFENAC 20 [...] INVALID FOR*Follow-up and Disposition History RecordedEncounter Number: [id number] Status:Closed by JORDI JACKSON MD on 11/06/16 Normal [facility] PROGRESSon 11-06-2016 PROGRESS HNO ID: [id number] thor: Jordi Christianson: (none)Author Type: PhysicianType: Progress NotesFiled: 11/06/2016 9:08 [...] today.Imaging: Magnetic Resonance Imaging from [facility] is personallyreviewed by me and demonstrates no significant abnormal findings. Olayinkaoepaula have evidence of possible edema in her infrapatellar fat pad at thelateral aspect on my read. Her patella is fairly centered with veryminimal lateral displacement.Impression/negrito n: Saima Yancey is a 21 year old [...] me damian as-needed basis only.Jordi Jackson MD [facility] CNOVon 11-01-2016 CNOV Office Visit (CONCTB) -------SAIMA YANCEY ([id number]) 1995 [facility] Time Provider Department11/01/16 11:15 AM JOSE HASSAN During your visit today, we recorded the following information about you:Jose Hassan MD 11/01/2016 12:33 PM SignedThis clinical note has been produced using speech recognition software.ASSESSMENT/PLAN:(M 22.2X1) Patellofemoral pain syndrome of right knee (primary [...] MEDICAL HISTORYDiagnosis Date- NEGATIVE MEDICAL HISTORYPAST SURGICAL UFKGAAR03/2017: DANDamp;C (MISSED AB 1ST TRIMESTER)No date: NONEFAMILY [...] with Hoffa's fat padimpingement testing.Electronically Signed:Jose [facility] 11:54 Patricia Hassan MD 11/01/2016 [...] Visit Diagnosis:Patellofemoral stress syndrome of right knee [M22.2X1]Order(s):diclofena c sodium (PENNSAID) 20 mg/gram /actuation(2 %) sopmApply [...] Status:Closed by JOSE HASSAN MD on 11/01/16 [facility] PROGRESSon 11-01-2016 PROGRESS HNO ID: [id number] thor: Jose Womackervice: (none)Author Type: PhysicianType: Progress NotesFiled: 11/01/2016 12:33 PMNote Text:This clinical note has been produced using speech recognition software.ASSESSMENT/PLAN:(M 22.2X1) Patellofemoral pain syndrome of right knee (primary [...] MEDICAL HISTORYDiagnosis Date- NEGATIVE MEDICAL HISTORYPAST SURGICAL ARSTXSJ78/2017: DANDC (MISSED AB 1ST TRIMESTER)No date: NONEFAMILY [...] pain with Hoffa's fat pad impingement testing.Electronically Signed:Jose Hassan MDnanda 2016 11:54 AM Normal [facility] MRI KNEE WO IVCON RTon 10-25 MRI KNEE WO IVCON RT * * *Final Report* * *DATE OF EXAM: Oct 25 2016 7:25AM [facility] 0213 - MRI KNEE WO IVCON RT [...] internal derangement.Remote injury of the fibular collateral ligament.Woodworker: ARASH Transcribe Date/Time: Oct 25 2016 8:41ADictated by : Blane QUINTANILLA examination was interpreted and the report reviewed and electronically signed by: CAROL ANN BERRIOS MD on Oct 26 2016 12:12AM EST Normal [facility] PROGRESSon 10-25-2016 PROGRESS HNO ID: [id number] thor: Shad Valdez Mri-TService: (none)Author Type: (none)Type: Progress NotesFiled: 10/25/2016 7:13 AMNote Text: Radiology Service Progress NotePATIENT NAME: Saima YanceyMRN: [id number] OF SERVICE: October 25, 2016TIME: 7:13 AMPATIENT IDENTITY VERIFICATION COMPLETED USING TWO (2) METHODS: Patientconfirmed name verbally and ID band matches..PATIENT GENDER DATA: Female. status: : NoBreastfeeding status: NO.PATIENT RELEVANT IMPLANT DATA REVIEWED: YesRADIOLOGY DEPARTMENT: MR; Exam(s) Completed: Lower MSK: Knee, rightPERIPHERAL IV DATA: Not applicableSIGNED BY: Shad Valdez Mri-TJune 2016 7:13 AM Normal [facility] Vital Signs Date Time Vital Sign Value Performing Clinician Facility 11-29-2024 10:060400 Body weight 109.99 kg Amanda Samuel APRN Work Phone: [facility] 11-29-2024 10:06-0400 Diastolic blood pressure 76 mm[Hg] Amanda Jimmie RIVET CATCHER Work Phone: [facility] 11-29-2024 10:06-0400 Heart rate 78 /min Amanda Jimmie RIVET CATCHER Work Phone: [facility] 11-29-2024 10:06-0400 Respiratory rate 18 /min Amanda Jimmie RIVET CATCHER Work Phone: [facility] 11-29-2024 10:06-0400 SaO2% (BldA) [Mass fraction] 99 % Amanda Jimmie RIVET CATCHER Work Phone: [facility] 11-29-2024 10:06-0400 Systolic blood pressure 120 mm[Hg] Amanda Jimmie RIVET CATCHER Work Phone: [facility] 11-22-2024 10:26-0400 Body mass index (BMI) [Ratio] 35.26 kg/m2 Kalie Calvin PA Work Phone: [facility] 11-22-2024 10:26-0400 Body weight 108.3 kg Kalie Laredo PA Work Phone: [facility] 11-22-2024 10:26-0400 Diastolic blood pressure 86 mm[Hg] Kalie Calvin PA Work Phone: [facility] 11-22-2024 10:26-0400 Systolic blood pressure 122 mm[Hg] Kalie Laredo PA Work Phone: [facility] 10-12-2024 13:08-0400 Body temperature 98.6 [degF] Amanda Jimmie RIVET CATCHER Work Phone: [facility] 10-12-2024 13:08-0400 Body weight 112.03 kg Amanda Jimmie RIVET CATCHER Work Phone: [facility] 10-12-2024 13:08-0400 Diastolic blood pressure 74 mm[Hg] Amandajeanne Samuel RIVET CATCHER Work Phone: [facility] 10-12-2024 13:08-0400 Heart rate 109 /min Amanda Becerrilbladimirjanellmarysol RIVET CATCHER Work Phone: [facility] 10-12-2024 13:08-0400 SaO2% (BldA) [Mass fraction] 98 % Amanda Becerrilraymundo RIVET CATCHER Work Phone: [facility] 10-12-2024 13:08-0400 Systolic blood pressure 122 mm[Hg] Amanda Jimmie RIVET CATCHER Work Phone: [facility] 09-11-2024 05:15-0400 Diastolic blood pressure 68 mm[Hg] Amanda Jimmie RIVET CATCHER Work Phone: [facility] 09-11-2024 05:15-0400 Heart rate 68 /min Amanda Jimmie RIVET CATCHER Work Phone: [facility] 09-11-2024 05:15-0400 Respiratory rate 18 /min Amanda Becerrilraymundo RIVET CATCHER Work Phone: [facility] 09-11-2024 05:15-0400 SaO2% (BldA) [Mass fraction] 99 % Amanda Becerrilraymundo RIVET CATCHER Work Phone: [facility] 09-11-2024 05:15-0400 Systolic blood pressure 126 mm[Hg] Amanda Jimmie RIVET CATCHER Work Phone: [facility] 09-11-2024 01:15-0400 Body height 175.26 cm Amanda Lorettajanellmarysol RIVET CATCHER Work Phone: [facility] 09-11-2024 01:15-0400 Body temperature 97.6 [degF] Amanda Jimmie RIVET CATCHER Work Phone: [facility] 09-11-2024 01:15-0400 Body weight 114 kg Amanda Jimmie RIVET CATCHER Work Phone: [facility] 07-26-2024 09:36-0400 Body mass index (BMI) [Ratio] 36.09 kg/m2 Kalie Calvin PA Work Phone: [facility] 07-26-2024 09:36-0400 Body weight 110.86 kg Kalie Laredo PA Work Phone: [facility] 07-26-2024 09:36-0400 Diastolic blood pressure 78 mm[Hg] Kalie Laredo PA Work Phone: [facility] 07-26-2024 09:36-0400 Systolic blood pressure 120 mm[Hg] Kalie Calvin PA Work Phone: [facility] 06-09-2024 16:37-0500 Body mass index (BMI) [Ratio] 35.88 kg/m2 Kalie Laredo PA Work Phone: [facility] 06-09-2024 16:37-0500 Body weight 110.22 kg Kalie Laredo PA Work Phone: [facility] 06-09-2024 16:37-0500 Diastolic blood pressure 72 mm[Hg] Kalie Calvin PA Work Phone: [facility] 06-09-2024 16:37-0500 Systolic blood pressure 128 mm[Hg] Kalie Calvin PA Work Phone: [facility] 04-07-2024 17:04-0500 Body mass index (BMI) [Ratio] 33.91 kg/m2 Kalie Calvin PA Work Phone: [facility] 04-07-2024 17:04-0500 Body weight 104.15 kg Kalie Calvin PA Work Phone: [facility] 03-11-2024 15:51-0500 Body height 175.3 cm Kalie Calvin PA Work Phone: [facility] 03-11-2024 15:51-0500 Body mass index (BMI) [Ratio] 34.26 kg/m2 Kalie Laredo PA Work Phone: [facility] 03-11-2024 15:51-0500 Body weight 105.23 kg Kalie Laredo PA Work Phone: [facility] 03-11-2024 15:51-0500 Diastolic blood pressure 84 mm[Hg] Kalie Calvin PA Work Phone: [facility] 03-11-2024 15:51-0500 Systolic blood pressure 128 mm[Hg] Kalie Laredo PA Work Phone: [facility] 02-04-2024 15:52-0400 Body height 175.3 cm Kalie Calvin PA Work Phone: [facility] 02-04-2024 15:52-0400 Body mass index (BMI) [Ratio] 34.41 kg/m2 Kalie Laredo PA Work Phone: [facility] 02-04-2024 15:52-0400 Body weight 105.69 kg Kalie Calvin PA Work Phone: [facility] 02-04-2024 15:52-0400 Diastolic blood pressure 70 mm[Hg] Kalie Laredo PA Work Phone: [facility] 02-04-2024 15:52-0400 Systolic blood pressure 126 mm[Hg] Kalie Calvin PA Work Phone: [facility] 01-08-2024 13:31-0400 Body mass index (BMI) [Ratio] 35.62 kg/m2 Jasmeet Haydee DO Work Phone: [facility] 01-08-2024 13:31-0400 Body weight 109.41 kg Jasmeet Haydee DO Work Phone: [facility] 01-08-2024 13:31-0400 Diastolic blood pressure 62 mm[Hg] Jasmeet Haydee DO Work Phone: [facility] 01-08-2024 13:31-0400 Systolic blood pressure 126 mm[Hg] Jasmeet Haydee DO Work Phone: [facility] 05-20-2023 10:00-0500 Body height 171.45 cm Darci Chen Other [employer] Other 01-23-2024 10:00-0500 Body mass index (BMI) [Ratio] 40.12 kg/m2 Darci Chen Other [employer] Other 05-20-2023 10:00-0500 Body weight 117.94 kg Darci Chen Other [employer] Other 05-20-2023 10:00-0500 Diastolic blood pressure 90 mm[Hg] Darci Chen Other [employer] Other 05-20-2023 10:00-0500 SaO2% (BldA) [Mass fraction] 97 % Darci Chen Other [employer] Other 05-20-2023 10:00-0500 Systolic blood pressure 127 mm[Hg] Darci Chen Other [employer] Other 04-30-2023 14:30-0500 Body height 171.45 cm Amanda Samuel Other [employer] Other 04-30-2023 14:30-0500 Body mass index (BMI) [Ratio] 39.96 kg/m2 Amanda Samuel Other [employer] Other 04-30-2023 14:30-0500 Body weight 117.48 kg Amanda Samuel Other [employer] Other 04-30-2023 14:30-0500 Diastolic blood pressure 82 mm[Hg] Amanda Samuel Other [employer] Other 04-30-2023 14:30-0500 SaO2% (BldA) [Mass fraction] 99 % Amanda Samuel Other [employer] Other 04-30-2023 14:30-0500 Systolic blood pressure 120 mm[Hg] Amanda Jimmie Other [employer] Other 12-25-2022 10:45-0400 Body height 171.45 cm Amanda Jimmie Other [employer] Other 12-25-2022 10:45-0400 Body mass index (BMI) [Ratio] 42.74 kg/m2 Amanda Jimmie Other [employer] Other 12-25-2022 10:45-0400 Body weight 125.65 kg Amanda Becerrilraymundo Other [employer] Other 12-25-2022 10:45-0400 Diastolic blood pressure 84 mm[Hg] Amanda Jimmie Other [employer] Other 12-25-2022 10:45-0400 Systolic blood pressure 120 mm[Hg] Amanda Becerrillakiar Other [employer] Other 10-11-2021 10:45-0400 Body height 171.45 cm Nick Olexa Other [employer] Other 10-11-2021 10:45-0400 Body mass index (BMI) [Ratio] 38.73 kg/m2 Nick Olexa Other [employer] Other 10-11-2021 10:45-0400 Body weight 113.85 kg Nick Olexa Other [employer] Other Encounters Encounter Date Encounter Type Care Provider Facility Start: 12-20-2024 End: 12-20-2024 Bamboo flowsheet Jasmeet Haydee DO Work Phone: [facility] Start: 12-20-2024 End: 12-20-2024 Bamboo flowsheet Jasmeet Haydee DO Work Phone: [facility] Start: 11-29-2024 End: 11-29-2024 ambulatory Amanda aSmuel APRN Work Phone: [facility] Work Phone: Start: 11-29-2024 End: 11-29-2024 Patient encounter procedure Amanda Samuel APRN [facility] Work Phone: Start: 11-22-2024 End: 11-22-2024 Bamboo flowsheet Kalie FELIX Work Phone: [facility] Start: 11-22-2024 End: 11-22-2024 Bamboo flowsheet Kalie FELIX Work Phone: [facility] Start: 11-22-2024 End: 11-22-2024 Office outpatient visit 10 minutes Kalie FELIX Work Phone: [facility] Comment on above: Encounter for weight management Start: 11-22-2024 End: 11-22-2024 ambulatory KALIE SIMPSON Not Available Start: 11-17-2024 End: 11-17-2024 Clinisync Result Encounter Kalie FELIX Work Phone: [facility] Unsolicited Start: 11-17-2024 End: 11-17-2024 Clinisync Result Encounter Kalie FELIX Work Phone: [facility] Unsolicited Start: 11-17-2024 Non-patient / Non-visit Kalie FELIX -[facility] Work Phone: Start: 10-12-2024 End: 10-12-2024 Patient encounter procedure Amanda Samuel APRN [facility] Work Phone: Start: 09-15-2024 Non-patient / Non-visit Siomara Jiang matthew MORTON [facility] Work Phone: Start: 09-11-2024 End: 09-11-2024 Emergency department patient visit Amanda Samuel Facility:[facility] Start: 07-26-2024 End: 07-26-2024 Bamboo flowsheet Kalie Simpson PA Work Phone: [facility] Start: 07-26-2024 End: 07-26-2024 Bamboo flowsheet Kalie Simpson PA Work Phone: [facility] Start: 07-26-2024 End: 07-26-2024 Postop follow up visit related to original px Kalie FELIX Work Phone: [facility] Comment on above: Postoperative examin ation Start: 07-26-2024 End: 07-26-2024 ambulatory KALIE CALVIN Not Available Start: 07-07-2024 End: 07-07-2024 ambulatory KALIE CALVIN Not Available Start: 06-22-2024 End: 06-22-2024 Bamboo flowsheet Jasmeet Haydee DO Work Phone: [facility] Start: 06-22-2024 End: 06-22-2024 Bamboo flowsheet Jasmeet Haydee DO Work Phone: [facility] Start: 06-22-2024 End: 06-22-2024 Office outpatient visit 15 minutes Jasmeet Haydee DO Work Phone: [facility] Comment on above: Pre-op examination; Pelvic pain in female Start: 06-22-2024 End: 06-22-2024 Preprocedural examination done Jasmeet Haydee DO Work Phone: [facility] Start: 06-22-2024 End: 06-22-2024 ambulatory JASMEET HAYDEE Not Available Start: 06-09-2024 End: 06-09-2024 Office outpatient visit 15 minutes Kalie FELIX Work Phone: [facility] Comment on above: Encounter for follow -up; Hypokalemia; Exposure to STD; Yeast infection Start: 06-09-2024 End: 06-09-2024 ambulatory KALIE SIMPSON Not Available Start: 06-09-2024 End: 06-09-2024 Bamboo flowsheet Kalie FELIX Work Phone: [facility] Start: 06-09-2024 End: 06-11-2024 Bamboo flowsheet Kalie FELIX Work Phone: [facility] Start: 06-09-2024 End: 06-11-2024 External Result Encounter Kalie FELIX Work Phone: [facility] External Department Unsolicited Start: 05-21-[address] [facility] Start: 05-19-2024 End: 05-19-2024 ambulatory [facility] Facility:[facility] Start: 05-13-2024 End: 05-13-2024 ambulatory ALESSIA FREGOSO [facility] Start: 05-12-2024 End: 05-12-2024 Telephone encounter Amanda Hernandez [facility] Card[facility] Start: 05-11-2024 End: 05-11-2024 Chart abstracting Alessia Fregoso MD Work Phone: [facility] Start: 04-07-2024 End: 04-07-2024 Office outpatient visit 10 minutes Kalie FELIX Work Phone: [facility] Comment on above: Encounter for manage ment and injection of depo-Provera; Encounter to discuss test results; Encounter for weight management Start: 04-07-2024 End: 04-07-2024 ambulatory KALIE SIMPSON Not Available Start: 04-07-2024 End: 04-07-2024 Bamboo flowsheet Kalie FELIX Work Phone: [facility] Start: 04-07-2024 End: 04-07-2024 Bamboo flowsheet Kalie FELIX Work Phone: [facility] Start: 03-26-2024 End: 03-26-2024 [facility] Start: 03-17-2024 End: 03-17-2024 ambulatory Kalie FELIX Facility:[facility] Start: 03-16-2024 End: 03-16-2024 [facility] Start: 03-12-2024 End: 03-12-2024 [facility] Start: 03-11-2024 End: 03-11-2024 ambulatory KALIE SIMPSON Not Available Start: 03-11-2024 End: 03-11-2024 Office outpatient visit 15 minutes Kalie FELIX Work Phone: [facility] Comment on above: Well adult exam; Pelvic pain in female; Encounter for weight management Start: 03-11-2024 End: 03-11-2024 Bamboo flowsheet Kalie FELIX Work Phone: [facility] Start: 03-11-2024 End: 03-11-2024 Bamboo flowsheet Kalie Simpson PA Work Phone: [facility] Start: 03-11-2024 End: 03-11-2024 Patient encounter status Kalie FELIX Work Phone: [facility] Start: 02-13-2024 End: 02-13-2024 [facility]ulatory [facility] Start: 02-04-2024 End: 02-04-2024 Office outpatient visit 15 minutes Kalie Simpson PA Work Phone: [facility] Comment on above: Encounter for weight management; Weight gain Start: 02-04-2024 End: 02-04-2024 ambulatory KALIE SIMPSON Not Available Start: 02-04-2024 End: 02-04-2024 Bamboo flowsheet Kalie Simpson PA Work Phone: [facility] Start: 02-04-2024 End: 02-04-2024 Bamboo flowsheet Kalie Simpson PA Work Phone: [facility] Start: 01-06-2024 End: 01-06-2024 Office outpatient visit 10 minutes Jasmeet Mcelroyo DO Work Phone: [facility] Comment on above: Encounter for weight management Start: 12-09-2023 End: 12-09-2023 ambulatory JASMEET HAYDEE Not Available Start: 10-13-2023 Patient encounter status Rach Samuel RIVET CATCHER Work Phone: [facility] Start: 06-02-2023 End: 06-02-2023 ambulatory RIVET CATCHER Amanda Samuel Work Phone: [facility] Work Phone: Start: 06-02-2023 End: 06-02-2023 Patient encounter procedure RIVET CATCHERBill Samuel Work Phone: [facility] Work Phone: Start: 05-27-2023 End: 05-27-2023 ambulatory RIVET CATCHERBill Samuel Work Phone: [facility] Work Phone: Start: 05-27-2023 End: 05-27-2023 Patient encounter procedure RIVET CATCHERBill Samuel Work Phone: [facility] [place] Work Phone: Start: 05-20-2023 Office outpatient vi sit 40 minutes Darci Chen [facility] Start: 05-20-2023 End: 05-20-2023 ambulatory RIVET CATCHERBill Samuel Work Phone: [facility] [employer] Other Start: 05-20-2023 End: 05-20-2023 Patient encounter procedure RIVET CATCHERBill Samuel Work Phone: [facility] Work Phone: Start: 05-05-2023 End: 05-05-2023 ambulatory RIVET CATCHERBill Samuel Work Phone: [facility] Work Phone: Start: 05-05-2023 End: 05-05-2023 Patient encounter procedure RIVET CATCHER Amanda Samuel Work Phone: [facility] Work Phone: Start: 04-30-2023 End: 04-30-2023 ambulatory Amanda Samuel Other [employer] [facility] [employer] Other Start: 04-30-2023 Office outpatient vi sit 15 minutes Amanda Samuel [facility] Start: 04-30-2023 End: 04-30-2023 Patient encounter procedure RIVET CATCHER Amanda Samuel Work Phone: [facility] Work Phone: Start: 03-17-2023 End: 03-17-2023 Patient encounter procedure RIVET CATCHERBill Samuel Work Phone: [facility] Work Phone: Start: 12-25-2022 End: 12-25-2022 ambulatory Amanda Samuel Other [employer] Other Start: 12-25-2022 Office outpatient vi sit 15 minutes Amanda Samuel [facility] Start: 07-15-2022 End: 07-16-[address] JASMEET HUBBARD . Facility:[facility]1 Start: 06-12-2022 End: 06-12-2022 ambulatory Amanda Samuel Other [employer] Other Start: 06-12-2022 Encounter by jose Samuel [facility] Start: 06-05-2022 End: 06-06-[address] JASMEET HUBBARD . Facility:[facility] Start: 05-06-2022 End: 05-07-[address] JASMEET HUBBARD . Facility:[facility] Start: 03-08-2022 End: 03-09-[address] JASMEET HUBBARD . Facility:[facility] Start: 01-25-2022 End: 01-25-2022 ambulatory Nick Olexa Other [employer] Other Start: 01-25-2022 Telephone encounter Nick Olexa [facility] Start: 01-24-2022 End: 01-24-2022 ambulatory ROCHELLE Samuel Work Phone: [facility] Work Phone: Start: 01-24-2022 End: 01-24-2022 Patient encounter procedure RIVET CATCHERBill Samuel Work Phone: [facility] [place] Start: 01-16-2022 End: 01-16-2022 ambulatory Amanda Mueller Other [employer] Other Start: 01-16-2022 Office outpatient vi sit 15 minutes Amanda Mueller [facility] Start: 01-03-2022 End: 01-04-[address] JASMEET HUBBARD . Facility:[facility] Start: 12-06-2021 End: 12-06-2021 ambulatory Nick Olexa Other [employer] Other Start: 12-06-2021 Postop follow up vis it related to original px Nick Olexa [facility] Start: 12-06-2021 End: 12-06-2021 Patient encounter procedure RIVET CATCHERBill Samuel Work Phone: [facility] Start: 11-22-2021 End: 11-22-2021 ambulatory Nick Olexa Other [employer] Other Start: 11-22-2021 Telephone encounter Nick Olexa [facility] Start: 11-13-2021 End: 11-13-2021 ambulatory Nick Olexa Other [employer] Other Start: 11-13-2021 Telephone encounter Nick Torresxa [facility] Start: 11-08-2021 End: 11-08-2021 Patient encounter procedure RIVET CATCHER Amanda Jimmie Work Phone: [facility] Start: 10-11-2021 (Post-Op) Post-Op Nick Brianxa [facility] Start: 10-11-2021 End: 10-11-2021 ambulatory Nick Ng Other [employer] Other Start: 10-01-2021 End: 10-01-2021 ambulatory Amanda Jimmie Other [employer] Other Start: 10-01-2021 Telephone encounter Amanda Garber her [facility] Start: 09-28-2021 End: 09-28-2021 ambulatory Amanda Jimmie Other [employer] Other Start: 09-28-2021 Telephone encounter Amanda Jcarlos her [facility] Start: 09-27-2021 End: 09-27-2021 ambulatory Nick Olexa Other [employer] Other Start: 09-27-2021 Office outpatient ne w 45 minutes Nick Torresxa [facility] Start: 09-27-2021 Telephone encounter Amanda Mueller [facility] Start: 09-14-2021 End: 09-14-[address] JASMEET HUBBARD . Facility:[facility] Start: 09-14-2021 Encounter for preprocedural laboratory examination DR JASMEET HUBBARD . [facility] Start: 09-11-2021 End: 09-12-[address] JASMEET HUBBARD . Facility:[facility] Start: 09-11-2021 End: 09-12-2021 Encounter for preprocedural laboratory examination DR JASMEET HUBBARD . Facility:[facility] Start: 09-05-2021 Encounter for other preprocedural examination DR JASMEET HUBBARD . [facility] Start: 09-03-2021 End: 09-04-[address] JASMEET HUBBARD . Facility:[facility] Start: 09-03-2021 End: 09-04-2021 Encounter for other preprocedural examination DR JASMEET HUBBARD . Facility:[facility] Start: 08-20-2021 End: 08-20-[address] JASMEET HUBBARD . Facility: Start: 04-11-2017 End: 04-14-2017 Ambulatory JOSE HASSAN [facility] Start: 03-29-2017 End: 03-31-2017 Ambulatory JOSE HASSAN [facility] Start: 01-14-2017 End: 01-14-2017 Ambulatory JAMES JONES [facility] Start: 12-11-2016 [facility] Start: 11-18-2016 End: 12-16-2016 Ambulatory AGAPITO VALLEJOMALAK [facility] Start: 11-06-2016 End: 11-06-2016 Ambulatory JORDI JACKSON [facility] Start: 11-01-2016 End: 11-01-2016 Ambulatory JOSE HASSAN [facility] Start: 10-25-2016 End: 10-25-2016 Ambulatory JOSE Leanna [facility] Procedures Date Procedure Procedure Detail Performing Clinician Start: 11-17-2024 [facility] CMP (CMP) (FOR [facility] USE) Kalie FELIX Work Phone: Start: 09-11-2024 CT of abdomen and pe lvis without contrast Amanda Samuel RIVET CATCHER Work Phone: Start: 07-26-2024 Urnls dip stick/tabl et rgnt non-auto w/o micrscp Kalie FELIX Work Phone: Start: 06-09-2024 RECURRENT VAGINITIS (HTRX) Kalie FELIX Work Phone: Start: 05-27-2023 MRI of head RIVET CATCHERBill Samuel Work Phone: Start: 01-24-2022 MRI of right knee RIVET CATCHER Amanda Jimmie Work Phone: Start: 12-06-2021 X-ray of right knee APR N Amanda Jimmie Work Phone: Start: 11-08-2021 X-ray of right knee APR N Amanda Samuel Work Phone: Plan of Treatment Date Care Activity Detail Author Start: 08-16-2026 DTaP,Tdap and Td Vaccines (9 - Td or Tdap) DTaP,Tdap and Td Vaccines (9 - Td or Tdap) [facility] Start: 12-27-2024 Influenza vaccination Influenza Vacc ine (#1) [facility] Start: 12-20-2024 End: 12-20-2024 Patient encounter procedure [facility] Comment on above: Arrived Start: 11-22-2024 End: 11-22-2024 Patient encounter procedure [facility] Comment on above: Arrived Start: 10-25-2024 End: 10-25-2024 Patient encounter procedure 10/25/2024 10:30 AM EDT Office Visit [facility] [address] [place] [id number] Kalie Simpson PA [address] [place], [place] [id number] [place] [address] [facility] Start: 07-26-2024 End: 07-26-2024 Patient encounter procedure 07/26/2024 9:30 AM EDT Office Visit [facility] [address] [place] [phone] Kalie Simpson PA [address] [place] [address] Arrived [facility] Comment on above: Arrived Start: 07-07-2024 End: 07-07-2024 Patient encounter procedure 07/07/2024 9:30 AM EDT Office Visit [facility] [address] [place] [phone] Kalie Simpson PA [address] [facility] [place] [address] [facility] Start: 06-22-2024 End: 06-22-2024 Patient encounter procedure [facility] Comment on above: Arrived Start: 06-09-2024 End: 06-09-2024 Patient encounter procedure [facility] Comment on above: Arrived Start: 05-13-2024 End: 05-13-2024 Patient encounter procedure 05/13/2024 8:15 AM EST Office Visit [facility] [address] [facility] [place] [address] Alessia Fregoso MD [address] [place] [address] [facility] Start: 05-03-2024 End: 05-03-2024 Patient encounter procedure 05/03/2024 8:00 AM EST Office Visit [facility] [address] [place] [phone] Jasmeet Hubbard DO [address] [facility] [address] [place] [address] [facility] Start: 04-07-2024 End: 04-07-2024 Patient encounter procedure [facility] Comment on above: Arrived Start: 04-05-2024 End: 04-05-2024 Patient encounter procedure 04/05/2024 3:30 PM EST Office Visit [facility] [address] [place] [address] Kalie Simpson PA [address] [place], [place] [id number] [facility] Start: 03-11-2024 End: 03-11-2025 Lipid 1996 panel - Serum or Plasma Lipid panel Lab Routine Well adult exam Expected: 03/11/2024 (Approximate), Expires: 03/11/2025 [facility] Comment on above: Expected: 03/11/2024 (Approximate), Expires: 03/11/2025 Start: 03-11-2024 End: 03-11-2025 US for US PELVIS-TRANSVAG IF INDICATED Imaging Routine Pelvic pain in female Expected: 03/11/2024 (Approximate), Expires: 03/11/2025 [facility] Comment on above: Expected: 03/11/2024 (Approximate), Expires: 03/11/2025 Start: 03-08-2024 End: 03-08-2024 Patient encounter procedure 03/08/2024 8:00 AM EST Office Visit [facility] [address] [place] [phone] Jasmeet Hubbard DO [address] [place] [address] [facility] Start: 02-04-2024 End: 02-04-[address] [facility] Comment on above: Arrived Start: 12-28-2023 COVID-19 Vaccine ( season) COVID-19 Vaccine ( season) [facility] Start: 12-28-2023 Influenza vaccination [facility] Start: 05-27-2023 MR Unspecified body region [facility] Start: 05-27-2023 MRI of head MR head/brain wo/w con [facility] Start: 09-30-2022 Adult BMI Screening Adult BMI Screen ing [facility] Start: 2018 Screening for malign ant neoplasm of cervix Pap Smear [facility] Start: 2009 Depression Screening Depression Scre ening [facility] Start: 2009 Tobacco Screening Tobacco Screening [facility] CBC W Auto Different ial panel - Blood CBC and differential Lab Routine Well adult exam Ordered: 03/11/2024 [facility] Comment on above: Ordered: 03/11/2024 Comprehensive metabo lic 2000 panel - Serum or Plasma Comprehensive metabolic panel Lab Routine Well adult exam Ordered: 03/11/2024 [facility] Comment on above: Ordered: 03/11/2024 Hemoglobin A1c/Hemoglobin.total in Blood Hemoglobin A1c Lab Routine Well adult exam Ordered: 03/11/2024 [facility] Comment on above: Ordered: 03/11/2024 Patient Education Flank Pain ED Urinary tract infection in adults - ED discharge instructions [facility] Work Phone: Patient referral [facility] Work Phone: Thyrotropin [Units/volume] in Serum or Plasma TSH Lab Routine Well adult exam Ordered: 03/11/2024 [facility] Work Phone: Comment on above: Ordered: 03/11/2024 Immunizations Immunization Date Immunization Notes Care Provider Ajit gallagher 09-28-2020 COVID-19 Ad26.COV2.S (Alejandra) Amanda Samuel RIVET CATCHER Work Phone: [facility] 01-28-2020 influenza, injectabl e, quadrivalent, preservative free Amanda Samuel RIVET CATCHER Work Phone: [facility] 01-28-2020 influenza, injectabl e, quadrivalent, contains preservative Amanda Samuel Other [facility] 01-28-2020 influenza virus vaccine, unspecified formulation Jasmeetcon Hubbard Work Phone: [facility] 08-16-2016 diphtheria, tetanus toxoids and acellular pertussis vaccine, unspecified formulation Amanda Samuel RIVET CATCHER Work Phone: [facility] 08-16-2016 diphtheria, tetanus toxoids and acellular pertussis vaccine Amanda Samuel Other [facility] 02-27-2010 influenza virus vaccine, split virus (incl. purified surface antigen) Amanda Samuel Other [employer] Other 02-27-2010 influenza virus vaccine, unspecified formulation Amanda Samuel RIVET CATCHER Work Phone: [facility] 02-27-2010 influenza, seasonal, injectable, preservative free Amanda Jimmie RIVET CATCHER Work Phone: [facility] 11-09-2008 human papilloma viru s vaccine, quadrivalent Amanda Jerricarbacher Other [facility] 07-05-2008 human papilloma viru s vaccine, quadrivalent Amanda Jerricarbacher Other [facility] 05-10-2008 human papilloma viru s vaccine, quadrivalent Amanda Rohrbacher Other [facility] 04-12-2008 diphtheria, tetanus toxoids and acellular pertussis vaccine Amanda Samuel Other [facility] [employer] Other 04-12-2008 diphtheria, tetanus toxoids and acellular pertussis vaccine, unspecified formulation Amanda Samuel RIVET CATCHER Work Phone: [facility] 04-12-2008 meningococcal polysaccharide (groups A, C, Y and W-135) diphtheria toxoid conjugate vaccine (MCV4P) Amanda Samuel Other [facility] 04-12-2008 tetanus toxoid, redu carlo diphtheria toxoid, and acellular pertussis vaccine, adsorbed Amandajeanne Sidhur RIVET CATCHER Work Phone: [facility] 04-12-2008 varicella virus vaccine Carmen Samuel Other [facility] 12-07-2001 diphtheria, tetanus toxoids and acellular pertussis vaccine Amanda Burgosacher Other [facility] [employer] Other 12-07-2001 diphtheria, tetanus toxoids and acellular pertussis vaccine, unspecified formulation Amanda Sidhur RIVET CATCHER Work Phone: [facility] 12-07-2001 poliovirus vaccine, inactivated Amanda Samuel Other [facility] [employer] Other 12-07-2001 poliovirus vaccine, unspecified formulation Amanda Becerrilraymundo RIVET CATCHER Work Phone: [facility] 04-16-2000 measles, mumps and rubella virus vaccine Amanda Becerrillakiar Other [facility] 07-14-1998 diphtheria, tetanus toxoids and acellular pertussis vaccine Amanda Jimmie Other [facility] [employer] Other 07-14-1998 diphtheria, tetanus toxoids and acellular pertussis vaccine, unspecified formulation Amanda Becerrilbladimirachemarysol RIVET CATCHER Work Phone: [facility] 07-14-1998 haemophilus influenz ae type b vaccine, conjugate unspecified formulation Amanda Jimmie RIVET CATCHER Work Phone: [facility] 07-14-1998 haemophilus influenz ae type b vaccine, PRP-OMP conjugate Amanda Jimmie Other [facility] 04-13-1998 measles, mumps and rubella virus vaccine Amanda Jimmie Other [facility] 04-13-1998 varicella virus vaccine Carmen Samuel Other [facility] 1997 diphtheria, tetanus toxoids and acellular pertussis vaccine Amanda Jimmie Other [facility] [employer] Other 1997 diphtheria, tetanus toxoids and acellular pertussis vaccine, unspecified formulation Amanda Lorettaacher RIVET CATCHER Work Phone: [facility] 1997 haemophilus influenz ae type b vaccine, conjugate unspecified formulation Amanda Lorettaacher RIVET CATCHER Work Phone: [facility] 1997 haemophilus influenz ae type b vaccine, PRP-OMP conjugate Amanda Rohrbacher Other [facility] 1997 hepatitis B vaccine, pediatric or pediatric/adolescent dosage Amanda Sidhur Other [facility] 1997 poliovirus vaccine, inactivated Amanda Rohrbacher Other [employer] Other 1997 poliovirus vaccine, unspecified formulation Amanda Jerricarbacher RIVET CATCHER Work Phone: [facility] 1997 trivalent poliovirus vaccine, live, oral Amanda Jerricarbacher RIVET CATCHER Work Phone: [facility] 1997 diphtheria, tetanus toxoids and acellular pertussis vaccine Amanda Jerricarbacher Other [employer] Other 1997 diphtheria, tetanus toxoids and acellular pertussis vaccine, unspecified formulation Amanda Jerricarbacher RIVET CATCHER Work Phone: [facility] 1997 haemophilus influenz ae type b vaccine, conjugate unspecified formulation Amanda Burgosacher RIVET CATCHER Work Phone: [facility] 1997 haemophilus influenz ae type b vaccine, PRP-OMP conjugate Amanda Samuel Other [facility] 1997 poliovirus vaccine, inactivated Amanda Rohrbacher Other [employer] Other 1997 poliovirus vaccine, unspecified formulation Amanda Jerricarbacher RIVET CATCHER Work Phone: [facility] 1997 trivalent poliovirus vaccine, live, oral Amanda Rohrbacher RIVET CATCHER Work Phone: [facility] 1997 diphtheria, tetanus toxoids and acellular pertussis vaccine Amanda Jerricarbacher Other [facility] [employer] Other 1997 diphtheria, tetanus toxoids and acellular pertussis vaccine, unspecified formulation Amanda Becerrilbladimiracher RIVET CATCHER Work Phone: [facility] 1997 haemophilus influenz ae type b vaccine, conjugate unspecified formulation Amanda Becerrilrbacher RIVET CATCHER Work Phone: [facility] 1997 haemophilus influenz ae type b vaccine, PRP-OMP conjugate Amanda Jerricarbacher Other [facility] 1997 hepatitis B vaccine, pediatric or pediatric/adolescent dosage Amanda Jerricarbacher Other [facility] 1997 poliovirus vaccine, inactivated Amanda Jerricarbacher Other [facility] [employer] Other 1997 poliovirus vaccine, unspecified formulation Amanda Becerrilrbacher RIVET CATCHER Work Phone: [facility] 1997 trivalent poliovirus vaccine, live, oral Amanda Becerrilbladimiracher RIVET CATCHER Work Phone: [facility] 1997 hepatitis B vaccine, pediatric or pediatric/adolescent dosage Amanda Jerricarbacher Other [facility] Payers Date Payer Category Payer Self-pay [id number] 2024 Medicaid MEDICAID [facility] [id number] 2024 Unknown 2024 Commercial [facility] [employer] Member Subscriber Plan / Payer (Effective 2024-Present) Name: Saima Yancey Relation to Subscriber: Self Name: Saima Yancey Payer ID: Not on file Type: Not on file Address: [place] [id number] 2024 Private Health Insurance [id number] 2024 Unknown [id number] 2023 Private Health Insurance [id number] 2022 Medicaid [id number] 1997 Unknown [id number] 2.16.840.1.129328.3.579.2. 593 1997 Unknown [id number] 2.16.840.1.566412.3.579.2. 593 1997 Unknown [id number] 2.16.840.1.520391.3.579.2. 593 1997 Unknown [id number] 2.16.840.1.086631.3.579.2. 593 1997 Unknown [id number] 2.16.840.1.411531.3.579.2. 593 1997 Unknown [id number] 2.16.840.1.511730.3.579.2. 593 1997 Unknown [id number] 2.16.840.1.923843.3.579.2. 593 1997 Unknown [id number] 2.16.840.1.443230.3.579.2. 593 1997 Unknown [id number] 2.16.840.1.493093.3.579.2. 593 1997 Unknown [id number] 2.16.840.1.470904.3.579.2. 1286 1997 Unknown [id number] 2.16.840.1.950406.3.579.2. 718 1997 Unknown [id number] 2.16.840.1.681739.3.579.2. 71 1997 Unknown [id number] 2.16.840.1.876329.3.579.2. 1997 Unknown [id number] 2.16.840.1.304447.3.579.2. 1997 Unknown [id number] 2.16.840.1.842976.3.579.2. 1997 Unknown [id number] 2.16.840.1.411763.3.579.2. 128 1997 Unknown [id number] 2.16.840.1.088613.3.579.2. 1258 1997 Unknown [id number] 2.16.840.1.557704.3.579.2. 1258 1997 Unknown [id number] 2.16.840.1.908029.3.579.2. 1258 1997 Unknown [id number] 2.16.840.1.592541.3.579.2. 1258 1997 Unknown [id number] 2.16.840.1.336577.3.579.2. 1258 1997 Unknown [id number] 2.16.840.1.920218.3.579.2. 1258 1997 Unknown [id number] 2.16.840.1.334750.3.579.2. 1259 1997 Unknown [id number] 2.16.840.1.627189.3.579.2. 1259 1997 Unknown [id number] 2.16.840.1.679425.3.579.2. 1259 1959 [facility] [id number] 2.16.840.1.838711.19 1959 Unknown [id number] 2.16.840.1.564457.19 Unknown [id number] 2.16.840.1.837656.3.579.2. 531 Social History Date Type Detail Facility Unknown if ever smoked [employer] Other Start: 02-04-2024 End: 05-11-2024 Sex Assigned At Owl[facility]ing ??? Other Start: 1995 Sex Assigned At Female F [facility] Start: 02-04-2024 End: 09-11-2024 Tobacco smoking status LAIS Never smoked tobacco [facility] Start: 09-30-2021 End: 02-04-2024 Tobacco use and exposure Smokeless tobacco non-user [facility] Start: 02-04-2024 End: 07-26-2024 Alcoholic beverage intake Lifetime non-drinker (finding) [facility] Start: 02-04-2024 End: 05-11-2024 History of Social function [facility] Start: 11-06-2022 Gender identity Identifies as female gender (finding) [facility] Start: 1995 Sex assigned at Not on file P [facility] Start: 03-21-2021 Sex Female (finding) [facility] Clinical Notes 08-26-2021 to 11-22-2024 ISIDRO Jeff - 11/22/2024 10:30 AM EDT Note Date & Type Note Facility 11-22-2024 History of Presen t illness Narrative Reason for Appointment: Patient ID: Saima Yancey is a 29 y.o. female who presents for Ozempic F/U Patient presents today for Weight Management Consult. MEDICATIONS No current outpatient medications ALLERGIES No Known Allergies PROBLEMS Active Ambulatory Problems Diagnosis Date Noted Anovular menstruation 01/27/2023 Anovulation 01/27/2023 Muscle weakness 09/09/2016 Missed period 01/27/2023 Missed ([facility]) 07/09/2016 Decreased ROM of lower extremity 09/09/2016 Cough 01/27/2023 Confirm cardiac activity using ultrasound ([facility]) 07/08/2016 Patellofemoral stress syndrome of right knee 02/21/2016 Right knee pain 09/09/2016 Viral illness 01/27/2023 Encounter for weight management 03/11/2024 Well adult exam 03/11/2024 Pelvic pain in female 03/11/2024 Resolved Ambulatory Problems Diagnosis Date Noted No Resolved Ambulatory Problems Past Medical History: Diagnosis Date Allergies Chlamydia Endometriosis Female infertility Gonorrhea Ovarian cyst Polycystic ovary syndrome Post depression HISTORY PAST MEDICAL HISTORY SOCIAL HISTORY Past Medical History: Diagnosis Date Allergies Chlamydia Endometriosis Female infertility Gonorrhea Ovarian cyst Polycystic ovary syndrome Post depression Social History Tobacco Use Smoking status: Never [...] Date ADENOIDECTOMY 2007 SECTION, LOW TRANSVERSE 2019 LAPAROSCOPY DIAGNOSTIC / BIOPSY / ASPIRATION / LYSIS 07/16/2024 diagnostic lap (due to pelvic pain) LAPAROSCOPY DIAGNOSTIC / BIOPSY / ASPIRATION / LYSIS 07/16/2024 TONSILLECTOMY 2006 REVIEW OF SYSTEMS Review of [...] reviewed. Vitals: Estimated body mass index is 35.26 kg/m as calculated from the following: Height as of 24: 5' 9 . Weight as of this encounter: 238 lb 12 oz. BP: 122/86 Patient's last menstrual period was 10/26/2024 (approximate). ASSESSMENT & PLAN ICD-10-CM 1. Encounter for weight management Z76.89 Patient states semiglutide is now too expensive. Pateitn does not tolerated adipex due to heart palpitations. I feel patient may benefit from a weight loss clinic for further evaluation. Patient will follow up with us for annual in future. Documented by ISIDRO Jeff on behalf of: ISIDRO Jeff documented in this encounter [facility] 10-12-2024 Evaluation note Diagnosis Onset Date Resolution Hand, foot and mouth disease acute October 12, 2024 1:03pm [facility] Work Phone: 1(305) 690-521103-31-2025 History of Present illness Narrative* ISIDRO Jeff - 07/26/2024 9:30 AM EDT Reason for Appointment: Patient ID: Saima Yancey is a 29 y.o. female who presents for Post-op Visit Patient presents today for 1 Week Post Op Follow Up appointment. MEDICATIONS Current Outpatient Medications Medication Instructions citalopram [...] Date ADENOIDECTOMY 2007 SECTION, LOW TRANSVERSE 2019 LAPAROSCOPY DIAGNOSTIC / BIOPSY / ASPIRATION / LYSIS 07/16/2024 diagnostic lap (due to pelvic pain) LAPAROSCOPY DIAGNOSTIC / BIOPSY / ASPIRATION / LYSIS 07/16/2024 TONSILLECTOMY 2006 REVIEW OF SYSTEMS Review of [...] reviewed. Vitals: Estimated body mass index is 36.09 kg/m as calculated from the following: Height as of 03/11/24: 5' 9 . Weight as of this encounter: 244 lb 6.4 oz. BP: 120/78 Patient's last menstrual period was 07/18/2024 (approximate). ASSESSMENT & PLAN ICD-10-CM 1. Postoperative examination Z09 POCT urinalysis dipstick manually resulted Patient presents for diagnostic lap follow up from 07/16/24. Patient doing well. She wishes to starttaking semiglutide to continue with weight loss as she has palpitations that she went to er for in February in 2023. Food Handler did say her heart was fine. Patient would rather start semiglutide. Recent labs reviewed and all are within normal range including lipids, liver enzymes and kidney function Documented by ISIDRO Jeff on behalf of: ISIDRO Jeff documented in this encounterScotland County Memorial [id number] History of Present illness Narrative* Radha Lerma, JENS - 06/22/2024 1:00 PM EST Reason for Appointment: Patient ID: Saima Yancey is a 29 y.o. female who presents for Pre-op Visit Patient presents today for Pre Op appointment. Patient is scheduled to undergo Diagnostic Laparoscopy, possible ZENA, possible FOE, possible BSO on 07/16/[address] Hubbard at [facility]. MEDICATIONS Current Outpatient Medications Medication Instructions citalopram [...] nursing note reviewed. Exam conducted with a package dyeing machine operator present. Vitals: Estimated body mass index is [...] reviewed, and patient is to proceed to [facility] OR. Follow Up: Patient is to follow up between 1-2 weeks post operative to assess proper healing and recovery fromprocedure. Documented by Radha Lerma LPN on behalf of: Jasmeet Hubbard DO documented in this encounterScotland County Memorial [id number] History of Present illness Narrative* ISIDRO Jeff - 06/09/2024 4:00 PM EST Reason for Appointment: Patient ID: Saima Yancey is a 29 y.o. female who presents for Follow-up (Pt present today for af/up cardiology visit. Pt was seen on 04/07/2024 [...] behalf of: ISIDRO Jeff documented in this encounterScotland County Memorial [id number] Note [id number]01-15-2025 Miscellaneous Notes* Telephone Encounter - Amanda Hernandez CMA - 05/12/2024 1:09 PM EST Called patient to remind them to bring their most current copy of their medication list with them to their appt. Patient verbalizes understanding. [facility] Telephone encounter Note* Telephone Encounter - Amanda Hernandez CMA - 05/12/2024 1:09 PM EST Called patient to remind them to bring their most current copy of their medication list with them to their appt. Patient verbalizes understanding. [facility] [employer] [id number] History of Present illness Narrative* ISIDRO Jeff - 04/07/2024 3:40 PM EST Reason for Appointment: Patient ID: Saima Yancey [...] behalf of: ISIDRO Jeff documented in this encounterScotland County Memorial [id number] NoteEducation Materials Emergency Medicine Sinus Tachycardia Sinus tachycardia [...] electrical activity of the heart. ? Ambulatory patient monitor. This records your heartbeats for 24 hours or more. You may be referred to a windows server specialist (procurement buyer). How is this treated? Treatment for this [...] keep your urine pale yellow. ? Take topb-jqt-arzscfx and prescription medicines only as told by [...] provider. Document Revised: 08/13/2022 Document Reviewed: 08/13/2022 [employer] Patient Education ? 2023 Consult A Doctor. Gastroenterology Nonspecific Chest Pain Chest pain can [...] hard to know whet (more content not included)...[facility] 03-11-2024 History of Present illness Narrative* ISIDRO Jeff - 03/11/2024 3:40 PM EST Reason for Appointment: Patient ID: Saima Yancey [...] nursing note reviewed. Exam conducted with a package dyeing machine operator present. Vitals: Estimated body mass index is [...] keeping a food journal, proper nutrition/diet, and exerciseregimen. Patient verbalized understanding. Patient to return to clinic in 4 weeks for Weight Management, discuss pelvic pain and painful intercourse after Doxycycline. Follow Up: Follow up for weight management in 4 weeks, pelvic pain and painful intercourse. Documented by Lenore Blackwell LPN on behalf of: ISIDRO Jeff documented in this encounterScotland County Memorial [id number] History of Present illness Narrative* ISIDRO Jeff - 02/04/2024 3:50 PM EDT Reason for Appointment: Patient ID: Saima Yancey is a 28 y.o. female who presents for Weight Management Patient presents today for a weight management consultation. Patient has been prescribed Adipex andshe is here for her 3rd prescription. Today's [...] behalf of ISIDRO Jeff documented in this [facility]09-10-2024 History of Present illness Narrative* Jojo Gregory LPN - 01/06/2024 8:10 AM EDT Pt presents today for a nurse Televisit for her 2nd Adipex script. She states that she is doing well with the Adipex. Denies any issues or concerns. She is down 7lbs from last appointment. Pt is coming to office to fern picker script. Pt advised to return to the office in 4 weeks for next Adipex script Documented on behalf of Dr. Jasmeet Hubbard by Jojo Garza LPN Total time spent on phone conversation was 5 minutes. documented in this [facility]01-23-2024 Evaluation note* Encounter Date Diagnosis Assessment Notes Treatment Notes Treatment Clinical Notes Apr, Sleep apnea (ICD-10 - G47.30) [...] problems are resolved. Apr, Other The diagnosis o f Sleep Apnea was reviewed in detail. The [...] changes in symptoms and/or problems with treatment [employer] Other 01-03-2024 Evaluation note* Encounter Date Diagnosis [...] Family history of migraine (ICD-10 - Z82.0) [employer] Other 08-30-2023 Evaluation note* Encounter Date Diagnosis Assessment Notes Treatment Notes Treatment Clinical Notes Nov, Bronchitis (ICD-10 - J40) Discussed diagnosis with patient. Patient to start Zithromax. Patient to take Zithromax daily with food as prescribed. Finish entire course of antibiotic. Tessalon Pearles ordered to take as needed for cough. Increase fluids and rest. Fxay-ffa-avdycxh antipyretics as needed. Warning signs and symptoms reviewed with patient today. Patient to go immediately to the ER should she experience any of these. Patient to notify office should her symptoms persist and not improve. Patient verbalizes understanding and agrees to treatment plan. [employer] Other 09-21-2022 Evaluation note* Encounter Date Diagnosis [...] of pain and plan potential surgical treatment. [employer] Other 08-11-2022 Evaluation note* Encounter Date Diagnosis [...] one with metal stays. Call with questions/concerns. [employer] Other 06-16-2022 Evaluation note* Encounter Date Diagnosis [...] to continue off work at this time. [employer] Other 06-02-2022 Evaluation note* Encounter Date Diagnosis [...] discussed that this injury can lead to group home pain and development of arthritic change. Discussed potential to consult with Dr Victoria depending on CT results. We were able to evaluate the CT scan later this afternoon. There is a anterior tibial spine fracture with minimal displacement. I will be recommending nonoperative treatment and nonweightbearing at this time. We will allow gentle range of motion in a brace. Aspirin for DVT prophylaxis [employer] Other 05-20-2022 [place]The [place], [place] NAME: SAIMA YANCEY DATE OF : MEDICAL REC#: [id number] MILKER MACHINE: [id number] [facility], TRANSADMIT DATE: 09/14/2021 10:36:00 CATHETER BUILDER DATE: 09/16/2021 02:00 DICTATING PHYSICIAN: JASMEET HUBBARD DICTATION DATE: 09/14/2021 13:00 OPERATIVE NOTE OPERATION DATE: 09/14/2021 PROCEDURE: Diagnostic laparoscopy. PREOPERATIVE DIAGNOSIS: Pelvic pain. POSTOPERATIVE DIAGNOSIS: Pelvic pain. ANESTHESIA: General. SURGEON: Jasmeet Hubbard M.D. VOCATIONAL TECHNICAL EDUCATION DIRECTOR: JANELL De Souza URINE OUTPUT: Yellow and [...] Hubbard DO on 09/17/2021 07:39 AM EDT [facility] Signed and Approved by: DR JASMEET HUBBARD . 09/17/2021 07:39:00[facility]05-01-2022 History general Narrative - Reported* Type Description Date Medical History Headaches Medical History Concussion, without loss of consciousness, initial encounter Surgical History tonsillectomy Surgical History D&C Surgical History laparoscopy 08/2021 Surgical History C section 12/2018 Hospitalization History Dehydration 2000 Hospitalization History Miscarriage D&C [employer] Other Evaluation noteNo InformationNort [employer] Other Evaluation noteNo assessment information available [facility] Work Phone: Evaluation note* Diagnosis Encounter for weight management Weight gain Other symptoms concerning nutrition, metabolism, and development documented [facility]* Diagnosis Well adult exam Routine general medical examination at a health care facility Pelvic pain in female Unspecified symptom associated with female genital organs Encounter for weight management documented [facility]* Diagnosis Encounter for management and injection of depo-Provera Encounter to discuss test results Other specified counseling Encounter for weight management documented in this encounter [facility]* Diagnosis Encounter for weight management documented in this encounter [facility]* Diagnosis Encounter for follow-up Hypokalemia Hypopotassemia Exposure to STD Yeast infection documented in this encounter [facility]* Diagnosis Pre-op examination Pelvic pain in female Unspecified symptom associated with female genital organs documented in this encounter [facility]* Diagnosis Postoperative examination Follow-up examination, following unspecified surgery documented in this encounter [facility]* Diagnosis Encounter for weight management documented in this encounter [facility] HealthcareHistory general Narrative - Reported* Type Description Date Medical History Headaches Medical History Concussion, without loss of consciousness, initial encounter Medical History PCOS Medical History Endometrosis Surgical History tonsillectomy Surgical History D&C Surgical History laparoscopy 08/2021 Surgical History C section 12/2018 Hospitalization History Dehydration 2001 Hospitalization History Miscarriage D&C [employer] Other InstructionsNot on filedocumented in this encounter [facility] CampusmyFairPartner SystemInstructionsNot on filedocumented in this encounter [facility] SystemReason for referral (narrative)No reason for referral information availableTuscarawas Hospital Work Phone: Summary Purpose Family History Relationship Condition Age at Onset Recorded Date/T prakash brother Family history of mental disorder Unknown Attention deficit hy peractivity disorder (ADHD) Unknown father Hypertension Unknown Family history of mental disorder Unknown Advance Directives Advance Directive Response Recorded Date/ Time Advance Directives No December 15, 2017 6:21pm Advance Directive Response Recorded Date/ Time Advance Directives No December 15, 2017 5:21pm Advance Directive Response Recorded Date/ Time Advance Directives No October 08 11:44am Chief Complaint and Reason for Visit Chief [...] e66.01 R51.9 R42 Z82.0 Unspecified sleep apnea Chief Complaint Admit Date L Back Pain September 11, 2024 1:12a m Amb Documentation September 15, 2024 9:21a m rash on hands/feet October 12, 2024 1:03 pm work note for sciatic pain November 29 10:03am Reason for Visit Admit Date Hand, foot and mouth disease October 12, 2024 1:03pm Additional Source Comments INFORMATION SOURCE (unrecogn ized section and content) DATE CREATED AUTHOR 10/21/2017 [facility] DATE CREATED AUTHOR AUTHOR'S ORGANIZ ATION 10/22/2017 [facility] DATE CREATED AUTHOR AUTHOR'S ORGANIZ ATION 08/06/2022 [facility] DATE CREATED AUTHOR AUTHOR'S ORGANIZ ATION 05/16/2024 [facility] DATE CREATED AUTHOR AUTHOR'S ORGANIZ ATION 05/28/2024 [facility] DATE CREATED AUTHOR AUTHOR'S ORGANIZ ATION 06/12/2024 [facility] DATE CREATED AUTHOR AUTHOR'S ORGANIZ ATION 09/12/2024 [facility] DATE CREATED AUTHOR AUTHOR'S ORGANIZ ATION 11/22/2024 [facility] d[facility] Specialists EPIC REASON FOR VISIT [...] wants std check. Reason Comments Pre-op Visit Reason Comments Post-op Visit Reason Comments Ozempic F/U Care Teams (unrecognized sec tion and content) Team Status: Inactive Member Role Status Dates Amanda Samuel APRN FOURDRINIER MACHINE TENDER-C Primary Care Provider Active Amanda Mueller NP-C Attending Provider Active Team Status: Inactive Member Role Status Dates Amanda Samuel APRN FOURDRINIER MACHINE TENDER-C Primary Care Provider Active Nick Ng MD Attending Provider Active Team Status: Active Member Role Status Dates Amanda Samuel APRN FOURDRINIER MACHINE TENDER-C Primary Care Provider Active Team Status: Inactive Member Role Status Dates Darci Chen MD Attending Provider Active Amanda Samuel APRN FOURDRINIER MACHINE TENDER-C Primary Care Provider Active Team Status: Inactive Member Role Status Dates Amanda Samuel APRN FOURDRINIER MACHINE TENDER-C Attending Provider Act gilberto Start: March 17, 2023 End: March 17, 2023 Team Status: Inactive Member Role Status Dates Amanda Samuel APRN FOURDRINIER MACHINE TENDER-C Attending Provider Act gilberto Start: April 30, 2023 End: April 30, 2023 Team Status: Inactive Member Role Status Dates Darci Chen MD Attending Provider Active S tart: May 05, 2023 End: May 05, 2023 Amanda Samuel APRN FOURDRINIER MACHINE TENDER-C Primary Care Provider Active Start: May 05, 2023 End: May 05, 2023 Team Status: Inactive Member Role Status Dates Darci Chen MD Attending Provider Active S tart: May 20, 2023 End: May 20, 2023 Amanda Samuel APRN FOURDRINIER MACHINE TENDER-C Primary Care Provider Active Start: April End: May 20, 2023 Team Status: Inactive Member Role Status Dates Amanda Samuel APRN FOURDRINIER MACHINE TENDER-C Primary Care Provider, Attending Provider Active Start: May 27, 2023 End: May 27, 2023 Team Status: Inactive Member Role Status Dates Amanda Samuel APRN FOURDRINIER MACHINE TENDER-C Primary Care Provider Active Start: May End: June 02, 2023 Darci Chen MD Attending Provider Active S tart: June 02, 2023 End: June 02, 2023 Account Analyst Relationship Specialty [place] [address] [place] [id number] PCP - General Family Medicine 11/13/22 Account Analyst Relationship Specialty Start Date End Date Amanda Samuel NP [address] [place] [place] [address] PCP - General Family Medicine 11/13/22 Account Analyst Relationship Specialty [place] [address] [place] [address] [place], [facility] PCP - General Family Medicine 11/13/22 Account Analyst Relationship Specialty Start Date End Date Amanda Samuel NP [address] [place] [address] [place] PCP - General Family Medicine 11/13/22 Account Analyst Relationship Specialty Start Date End Date Amanda Samuel NP [address] [place] [address] [place], [facility] PCP - General Family Medicine 11/13/22 Account Analyst Relationship Specialty Start Date End Date Amanda Samuel NP [address] [place] [address] [place], [facility] PCP - General Family Medicine 11/13/22 Account Analyst Relationship Specialty Start Date End Date Amanda Samuel NP [facility] [place] [place] [address] PCP - General Family Medicine 11/13/22 Account Analyst Relationship Specialty Start Date End Date Amanda Samuel NP [address] [place] [address] [place] [address] PCP - General Family Medicine 11/13/22 Account Analyst Relationship Specialty [place] [address] [place] [address] [place] [address] PCP - General Family Medicine 11/13/22 Account Analyst Relationship Specialty Start Date End Date Amanda Samuel NP [address] [place] [facility] [place] [address] [address] [place] [address] PCP - General Family Medicine 11/13/22 Account Analyst Relationship Specialty Start Date End Date Amanda Samuel NP [address] [place] [place] [address] [place] [address] PCP - General Family Medicine 11/13/22 Account Analyst Relationship Specialty Start Date End Date Amanda Samuel NP [address] [place] [address] [address] PCP - General Family Medicine 11/13/22 Account Analyst Relationship Specialty Start Date End Date Amanda Samuel NP [address] [place] [address] [address] PCP - General Family Medicine 11/13/22 Account Analyst Relationship Specialty Start Date End Date Amanda Samuel NP [address] [facility] [place] [address] PCP - General Family Medicine 11/13/22 Team Status: Inactive Member Role Status Dates Amanda Samuel APRN FOURDRINIER MACHINE TENDER-C Primary Care Provider Active Start: September 11, 2024 End: September 11, 2024 Nick Noonan Jr, MD Emergency Provider Active Start: September 11, 2024 End: September 11, 2024 Team Status: Active Member Role Status Dates Amanda Samuel APRN FOURDRINIER MACHINE TENDER-C Primary Care Provider Active Start: September 15, 2024 Siomara Lau CMA Attending Provider Active Start: September 15, 2024 Team Status: Inactive Member Role Status Dates Amanda Samuel APRN NP-C Primary Care Provider Active Start: October 12, 2024 End: October 12, 2024 ROCHELLE Thurston Attending Provider Act gilberto Start: October 12, 2024 End: October 12, 2024 Team Status: Active Member Role Status Dates Amanda Samuel APRN FOURDRINIER MACHINE TENDER-[place] Primary Care Provider Active Start: November 17, 2024 Kalie Simpson PA-C Attending Provider Active Start : November 17, 2024 Team Status: Inactive Member Role Status Dates Aamnda Samuel APRN FOURDRINIER MACHINE TENDER-[place] Primary Care Provider Active Start: November 29, 2024 End: November 29, 2024 ROCHELLE Thurston Attending Provider Act gilberto Start: November 29, 2024 End: November 29, 2024 Account Analyst Relationship Specialty Start Date End Date Amanda Samuel NP [facility] [place] [address] PCP - General Family Medicine 11/13/22 Goals [...] BE BASED ON THE PRIMARY CLINICAL RECORDS. [employer] [facility]. provides no warranty or guarantee of the accuracy or completeness of information in this document.
--- OUTSIDE RECORDS SUMMARY | 2024-12-20 20:20 | XMS_ITS | Encounter Summary ---
Author Organization [facility] Address [address] [place] [address] Care Team Providers Care Jukebox Checker Name Role Phone Rach Hernandezfer Leanna MANAGER OF [employer]IRES SALES Primary Care Provider Encounter Details Date Type Department Care Team (Late st Contact Info) Description 07/07/2023 Clinisync Result Encounter [facility] External Department Unsolicited Kalie Parson PA [address] [facility] [address] [place], [facility] Social History Tobacco Use Types [...] EDT Procedure Visit [facility] [address] [facility] [id number] Jasmeet Hubbard DO [address] [facility] [place], [place] [id number] documented as of this encounter Procedures Procedure Name Priority Date/Time Associated Diagnosis Comments US PELVIS W/ TRANSVAGINAL 07/07/2023 3:33 PM EDT documented in this encounter Results * US PELVIS W/ TRANSVAGINAL (07/07/2023 3:33 PM EDT) Anatomical Region Laterality Modality Other 07/07/2023 3:33 PM EDT Narrative 07/07/2023 3:36 PM EDT [address] [address] Ultrasound Report Signed Patient: SAIMA GONZALES MR#: [id number] : 1995 Acct:[id number] Age/Sex: 28 / F ADM Date: 07/07/23 Loc: US Attending Dr: Kalie Parson Ordering Physician: Kalie Parson Date of Service: 07/07/23 Procedure(s): US pelvis w/ transvaginal Accession Number(s): [id number] cc: Kalie Parson; VENU HERNANDEZ [address] [address] Patient Name: SAIMA GONZALES MRN: [id number] date: 1995 Sex: F Assigned Patient Location: US Current Patient Location: US Accession/Order Number: [id number] Exam Date: 07/07/2023 14:45 Report Date: 07/07/2023 [...] Signed By: 07/07/23 1536 DD/ 1533 TD/TT: Legislative Correspondent: Procedure Note Radiology, Radiologist, - 07/07/2023 [place] [address] Ultrasound Report Signed Patient: SAIMA GONZALES LMR#: [id number] : 1995Acct:[id number] Age/Sex: 28 / FADM Date: 07/07/23 Loc: US Attending Dr: Kalie Parson Ordering Physician: Kalie Parson Date of Service: 07/07/23 Procedure(s): US pelvis w/ transvaginal Accession Number(s): [id number] cc: Kalie Parson; VENU HERNANDEZ [place] [address] Patient Name: SAIMA GONZALES MRN: [id number] date: 1995 Sex: F Assigned Patient Location: US Current Patient Location: US Accession/Order Number: [id number] Exam Date: 07/07/2023 14:45 Report Date: 07/07/2023 [...] M.D. Signed By:07/07/23 1536 DD/ 1533 TD/TT: Legislative Correspondent: Kalie [facility] Final Result documented in this encounter Visit Diagnoses Not on filedocumented in this encounter Care Teams Jukebox Checker Relationship Specialty Start Date End Date Venu Hernandez NP [facility] [place] [address] PCP - General Family Medicine 11/13/22 documented as of this encounter
--- OUTSIDE RECORDS SUMMARY | 2024-12-20 20:20 | XMS_ITS | Encounter Summary ---
Author Organization [facility] Address [address] [place] [address] Care Team Providers Care Burial Needs Salesperson Name Role Phone Amanda Samuel NP Primary Care Provider Encounter Details Date Type Department Care Team (Late Contact Info) Description 08/11/2024 Abstract [facility] [address] [facility] [place] [address] Lenore Blackwell LPN Social History Tobacco [...] EDT Procedure Visit [facility] [address] [facility] [place] [address] Jasmeet Hubbard DO [address] [facility] [address] [place] [id number] documented as of this encounter Visit Diagnoses Not on filedocumented in this encounter Care Teams Burial Needs Salesperson Relationship Specialty Start Date End Date Amanda Samuel NP [address] [facility] [address] PCP - General Family Medicine 11/13/22 documented as of this encounter
--- OUTSIDE RECORDS SUMMARY | 2024-12-20 20:20 | XMS_ITS | Encounter Summary ---
Author Organization [facility] Address [address] [place] [address] Care Team Providers Care Occ Therapy Asst Name Role Phone Amanda Samuel NP Primary Care Provider Encounter Details Date Type Department Care Team (Late Contact Info) Description 07/27/2024 Abstract [facility] [address] [facility] [place] [address] Lenore Blackwell LPN Social History Tobacco [...] EDT Procedure Visit [facility] [address] [facility] [place] [place] [address] Jasmeet Hubbard DO [address] [facility] [place] [address] documented as of this encounter Visit Diagnoses Not on filedocumented in this encounter Care Teams Occ Therapy Asst Relationship Specialty Start Date End Date Amanda Samuel NP [address] [facility] [place] [address] PCP - General Family Medicine 11/13/22 documented as of this encounter
--- OUTSIDE RECORDS SUMMARY | 2024-12-20 20:20 | XMS_ITS | Encounter Summary ---
Author Organization [facility] Address [address] [place] [address] Care Team Providers Care Behavioral Services Tech Name Role Phone Amanda Samuel NP Primary Care Provider Encounter Details Date Type Department Care Team (Late Contact Info) Description 10/26/2024 Abstract [facility] [address] [place] [address] Lenore Blackwell LPN Social History Tobacco [...] EDT Procedure Visit [facility] [address] [place] [address] Jasmeet Hubbard DO [address] [facility] [place] [address] documented as of this encounter Visit Diagnoses Not on filedocumented in this encounter Care Teams Behavioral Services Tech Relationship Specialty Start Date End Date Amanda Samuel NP [address] [place] [address] PCP - General Family Medicine 11/13/22 documented as of this encounter
--- OUTSIDE RECORDS SUMMARY | 2024-12-20 20:20 | XMS_ITS | Encounter Summary ---
Author Organization [facility] Address [address] [place] [address] Care Team Providers Care Sap Abap Developer Name Role Phone Pcp, No Primary Care Provider Unavailabl e Indira Bazan MD Primary Care Provider [phone] Pcp, No Primary Care Provider Unavailabl e [...] 07/27/2016 Get Medical Advice Orthopedics [address] [place] [address] Fidel Lawson MD [address] [place], [place] [id number] Test Result Question Social History Tobacco Use [...] on filedocumented in this encounter Care Teams Sap Abap Developer Relationship Specialty Start Date End Date Pcp, No PCP - General 05/29/16 08/13/16 Indira Bazan MD PCP - General Internal Medicine 08/14/16 05/26/17 Pcp, No PCP - General 05/27/17 12/26/17 documented as of this encounter
--- OUTSIDE RECORDS SUMMARY | 2024-12-20 20:20 | XMS_ITS | Encounter Summary ---
Author Organization [facility] Address [address] [place] [address] Care Team Providers Care Relief Docking Master Name Role Phone Amanda Samuel NP Primary Care Provider Encounter Details Date Type Department Care Team (Late Contact Info) Description 09/07/2024 Abstract [facility] [address] [facility] [place] [address] Lenore Blackwell LPN Social History Tobacco [...] EDT Procedure Visit [facility] [address] [facility] [place] [address] Jasmeet Hubbard DO [address] [facility] [place] [address] documented as of this encounter Visit Diagnoses Not on filedocumented in this encounter Care Teams Relief Docking Master Relationship Specialty Start Date End Date Amanda Samuel NP [address] [facility] [place] [address] PCP - General Family Medicine 11/13/22 documented as of this encounter
--- OUTSIDE RECORDS SUMMARY | 2024-12-20 20:20 | XMS_ITS | Encounter Summary ---
Author Organization [facility] Address [address] [facility] [address] [place] [address] Care Team Providers Care Obiee Obia Solution Architect Name Role Phone Amanda Samuel PROGRAM ENGAGEMENT DIRECTOR Primary Care Provider Encounter Details Date Type Department Care Team (Late Contact Info) Description 10/01/2024 Abstract [facility] [address] [place] [address] [place] [address] Jasmeet Hubbard DO [facility] [address] [place], [place] [address] Social History Tobacco Use Types Packs/Day Years [...] 11:00 AM EDT Procedure Visit [facility] [address] [place], [place] [address] [place] [address] Jasmeet Hubbard DO [address] [place], [place] [address] documented as of this encounter Visit Diagnoses Not on filedocumented in this encounter Care Teams Obiee Obia Solution Architect Relationship Specialty Start Date End Date Amanda Samuel NP [address] [facility] [place] [address] PCP - General Family Medicine 11/13/22 documented as of this encounter
--- OUTSIDE RECORDS SUMMARY | 2024-12-20 20:20 | XMS_ITS | Encounter Summary ---
[id number] [address] [place] [address] Care Team Providers Care Mail Officer Name Role Phone Amanda Samuel APRN-SUSANA Primary Care Provid er Encounter Details Date Type Department Care Team (Late st Contact Info) Description 05/10/2024 Orders Only [facility] [address] [place] [address] External, Scanning Provider Social History Tobacco [...] 1:54 PM EST) us Scanning Provider External [facility] Final Result MANUALLY TRANSCRIBED RESULTS * ECG 12 lead (04/29/2024 1:50 PM EST) us Scanning Provider External ECG ORDERABLES Final Result Performing Organization Address [facility] Phone Number MANUALLY TRANSCRIBED RESULTS * Multiple labs (03/17/2024 1:48 PM EST) us Scanning Provider External [facility] Final Result Performing Organization Address [facility] Phone Number MANUALLY TRANSCRIBED RESULTS * ECG 12 lead (03/16/2024 1:46 PM EST) us Scanning Provider External ECG ORDERABLES Final Result Performing Organization Address [facility] Phone Number MANUALLY TRANSCRIBED RESULTS documented in this encounter Visit Diagnoses Not on filedocumented in this encounter Care Teams Mail Officer Relationship Specialty Start Date End Date Amanda Samuel APRN-SUSANA [address] [place] [address] PCP - General Nurse Practitioner 05/13/24 documented as of this encounter
--- OUTSIDE RECORDS SUMMARY | 2024-12-20 20:20 | XMS_ITS | Encounter Summary ---
Author Organization [facility] Address [address] [place] [address] Care Team Providers Care Dobby Looms Pegger Name Role Phone Amanda Samuel FINANCE ANALYST Primary Care Provider Encounter Details Date Type Department Care Team ([facility] Contact Info) Description 09/25/2023 Abstract [facility] [place] [address] Jasmeet Hubbard DO [address] [place], [facility] Social History Tobacco Use Types Packs/Day Years [...] EDT Procedure Visit [facility] [address] [place] [address] Jsameet Hubbard DO [address] [place] [id number] documented as of this encounter Visit Diagnoses Not on filedocumented in this encounter Care Teams Dobby Looms Pegger Relationship Specialty Start Date End Date Amanda Samuel NP [facility] [facility] [place] [address] PCP - General Family Medicine 11/13/22 documented as of this encounter
--- OUTSIDE RECORDS SUMMARY | 2024-12-20 20:20 | XMS_ITS | Encounter Summary ---
Author Organization [facility] Address [id number] [address] [place] [address] Care Team Providers Care Truck Body Builder Apprentice Name Role Phone Amanda Samuel APRN-GIANT TIRE REPAIRER Primary Care Provid er Encounter Details Date Type Department Care Team (Late st Contact Info) Description 05/20/2024 Orders Only [facility] [address] [place] [address] Amanda Styles MA Palpitations Social History Tobacco [...] Palpitations documented in this encounter Care Teams Truck Body Builder Apprentice Relationship Specialty Start Date End Date Amanda Samuel APRN-GIANT TIRE REPAIRER [address] [place] [address] PCP - General Nurse Practitioner 05/13/24 documented as of this encounter
--- OUTSIDE RECORDS SUMMARY | 2024-12-20 20:20 | XMS_ITS | Clinical Summary ---
Author Organization [facility] Address [address] [place] [address] Care Team Providers Care Resident Assistant Cna Name Role Phone Amanda Samuel NP Primary Care Provider Allergies No known active allergies Medications citalopram (CeleXA) 20 MG tabletIndicatio ns:Anxiety, generalized Take 1 tablet (20 mg) by mouth Daily 30 tablet 5 4 11/23/19 25 Discontinued Potassium 99 MG tablet 4 11/23/19 25 Discontinued Active Problems Problem Noted Date Diagnosed Date Encounter for weight management 03/11/2024 Well adult exam 03/11/2024 Pelvic pain in female 03/11/2024 Anovular menstruation 01/27/2023 Anovulation 01/27/2023 Missed period 01/27/2023 Cough 01/27/2023 Viral illness 01/27/2023 Muscle weakness 09/09/2016 Decreased ROM of lower extremity 09/09/2016 Right knee pain 09/09/2016 Missed ([facility]) 07/09/2016 Confirm cardiac activity using ultrasound ([facility]) 07/08/2016 Patellofemoral stress syndrome of right knee Encounters Date Type Department Care Team Description 12/20/2024 4:00 PM EDT Office Visit [facility] [address] [place] [address] Jasmeet Hubbard, DO Well woman exam with routine gynecological exam 12/20/2024 Bamboo flowsheet [facility] [address] [place] [address] Jasmeet Hubbard DO 11/22/2024 10:30 AM EDT Office Visit [facility] [address] [place] [address] Kalie Simpson PA Encounter for weight management 11/22/2024 Bamboo flowsheet [facility] [address] [place] [address] Kalie Simpson PA 11/21/2024 Travel 11/17/2024 Clinisync Result Encounter [facility] External Department Unsolicited Kalie Simpson PA 10/26/2024 Abstract [facility] [address] [place] [address] Lenore Blackwell LPN 10/26/2024 Orders Only [facility] [address] [place] [address] Kalie Simpson PA Encounter for long-term (current) use of medications 10/01/2024 Abstract [facility] [address] [place] [address] Jasmeet Hubbard DO from Last 3 Months Family History Medical [...] oz) 12/20/2024 4:27 P M EDT Height 175.3 cm (5' 9 ) 03/11/2024 3:51 PM EST Body Mass Index 36 03/11/2024 3:51 PM EST Plan of Treatment Upcoming Encounters Date Type Department Care Team (Late st Contact Info) Description 12/27/2025 11:00 AM EDT Procedure Visit [facility] [address] [facility] [place] [address] Jasmeet Hubbard DO [address] [facility] [place] [address] Health Maintenance Due Date Last Done Comments Influenza Vaccine (#1) 2024 01/28/2020, 2009 Procedures Procedure Name Priority Date/Time Associated Diagnosis Comments [facility] CMP (CMP) (FOR REMOTE [facility] USE) Routine 11/17/2024 12:27 PM EDT from Last 3 Months Results * [facility] CMP (CMP) (FOR REMOTE [facility] USE) (11/17/2024 12:27 PM EDT) SODIUM 141 136 - 145 mmol/L [facility] POTASSIUM 3.9 3.5 - 5.1 mmol/L [facility] CHLORIDE 105 98 - 107 mmol/L [facility] CARBON DIOXIDE 28.9 21.0 - 32.0 mmol/L [facility] ANION GAP 11.0 [facility] GLUCOSE 80 74 - 106 mg/dL [facility] BLOOD UREA NITROGEN 11.0 7.0 - 18.0 mg/dL [facility] CREATININE 0.67 0.55 - 1.02 mg/dL [facility] EGFR-AF BAHRAINI >60 >=60 mL/min/1. 73m 2 [facility] EGFR-NON AF BAHRAINI >60 >=60 mL/min/1. 73m 2 [facility] BUN CREATININE RATIO 16.4 [facility] CALCIUM 9.2 8.5 - 10.1 mg/dL [facility] BILIRUBIN TOTAL 0.3 0.2 - 1.0 mg/dL [facility] ASPARTATE AMINO TRANSFERASE 18 15 - 37 U/L [facility] ALANINE AMINOTRANSFERASE 35 14 - 59 U/L [facility] ALKALINE PHOSPHATASE 75 46 - 116 U/L [facility] TOTAL PROTEIN 7.0 6.4 - 8.2 g/dL [facility] ALBUMIN LEVEL 3.5 3.4 - 5.0 g/dL [facility] GLOBULIN 3.5 g/dL [facility] ALBUMIN GLOBULIN RATIO 1.0 [facility] 11/17/2024 12:2 7 PM EDT 11/17/2024 12:29 PM EDT Narrative [facility] - 11/17/2024 1:48 PM EDT us Kalie FELIX [facility] Insurance [employer] Care Teams Resident Assistant Cna Relationship Specialty Start Date End Date Amanda Samuel NP [address] [place] [address] PCP - General Family Medicine 11/13/22
[2024-12-23 12:12] LABS: Age Gdln ACOG Testing Note (.); IGP, rfx Aptima HPV ASCU Note (.)
== END 2024-12-20 20:17 | disposition home or self-care (01) ==
LOC: LAB 20:16
PROVIDERS: PCP Nurse Practitioner Family; Visit Provider Obstetrics & Gynecology
DX: Z01.419 Encounter for gynecological examination (general) (routine) without abnormal findings (principal)
CPT/HCPCS: 88175